=== PATIENT | female | born 1940 | race Two or more races ===

== ENCOUNTER 2017-01-02 10:30 | Emergency (ER) | payer OTHER, MEDICARE ==
[2017-01-02 10:37] VITALS: TEMP 98; BMI 34.9
--- NOTE | 2017-01-02 11:07 | PDOC ---
History of Present Illness - General History Source: Patient - History of Present Illness Presenting Symptoms: Chest Pain Timing/Duration: reports: intermittent <Cayla PollockDeb - Last Filed: 01/02/17 13:31> <Kirill Campuzano - Last Filed: 01/07/17 02:41> - General Chief Complaint: Chest Pain Stated Complaint: CHEST PAIN, LT SIDE NUMBNESS Time Seen by Provider: 01/02/17 10:51 Past History - Past Medical History Anemia: Yes Asthma: Yes Cancer: Yes (LEFT mastectomy) Cardiac Disorders: Yes (mvp) CVA: No COPD: No CHF: No Dementia: No Diabetes: No GI Disorders: Yes (acid reflux) Disorders: Yes HTN: Yes Hypercholesterolemia: Yes Liver Disease: No Seizures: No Thyroid Disease: Yes - Surgical History Abdominal Surgery: No Appendectomy: No Cardiac Surgery: No Cholecystectomy: No Lung Surgery: No Neurologic Surgery: No Orthopedic Surgery: Yes (r fx patella surg times 6, r knee replacement) - Family Disease History Family Disease History: Diabetes: Father, Heart Disease: Mother - Psycho/Social/Smoking Cessation Hx Anxiety: No Suicidal Ideation: No Smoking Status: No Smoking History: Never smoked Have you smoked in the past 12 months: No Number of Cigarettes Smoked Daily: 0 Information on smoking cessation initiated: No Hx Alcohol Use: No Drug/Substance Use Hx: No Substance Use Type: None Hx Substance Use Treatment: No <Cayla PollockDeb - Last Filed: 01/02/17 13:31> <Kirill Campuzano - Last Filed: 01/07/17 02:41> - Past Medical History Allergies/Adverse Reactions: Allergies Allergy/AdvReac Type Severity Reaction Status Date / Time No Known Drug Allergies Allergy Verified 01/02/17 10:37 Home Medications: Ambulatory Orders Alendronate Sodium 70 mg PO UTDICT 10/16/11 Aspirin [Baby Aspirin] 81 mg PO DAILY 10/16/11 Ferrous Fumarate [Iron] 325 mg PO DAILY 10/16/11 Levothyroxine [Synthroid -] 5 mcg PO DAILY 10/16/11 Metoprolol "Xl" (Sustain Act) [Toprol Xl] 50 mg PO DAILY 10/16/11 Hydrochlorothiazide [Hctz -] 12.5 mg PO DAILY 12/31/13 Rosuvastatin [Crestor -] 10 mg PO HS #0 01/06/14 Cyanocobalamin [Vitamin B12 -] 2,500 mcg PO DAILY 06/07/14 Losartan Potassium 50 mg PO DAILY 06/07/14 Pantoprazole Sodium [Protonix] 40 mg PO DAILY 06/07/14 Pramipexole Di-HCl [Mirapex] 0.25 mg PO BID 06/07/14 Oxybutynin Chloride [Ditropan Xl] 10 mg PO DAILY 07/05/16 Warfarin Sodium [Coumadin] 6 mg PO DAILY 01/02/17 Cardiac Specific PMH - Complaint Specific PMHX Pacemaker: No <Griselda Pollock - Last Filed: 01/02/17 13:31> Review of Systems - Review of Systems Constitutional: No: Chills, Fever Respiratory: Yes: Shortness of Breath. No: Cough Cardiac (ROS): Yes: Chest Pain. No: Palpitations ABD/GI: No: Nausea, Vomiting <Griselda Pollock Last Filed: 01/02/17 13:31> *Physical Exam - Physical Exam General Appearance: Yes: Appropriately Dressed. No: Apparent Distress HEENT: positive: Normal Voice Neck: positive: Supple. negative: Lymphadenopathy (R) Respiratory/Chest: positive: Chest Tender (old healed scar to outer quadrant of L breast w/ minimal ttp, no mass, skin changes or adenopathy), Lungs Clear, Normal Breath Sounds. negative: Respiratory Distress Cardiovascular: positive: Regular Rate, S1, S2 Gastrointestinal/Abdominal: positive: Soft. negative: Tender Extremity: positive: Pedal Edema (1 edema to RLE, trace edema to LLE) Integumentary: positive: Dry, Warm Neurologic: positive: Fully Oriented, Alert, Normal Mood/Affect <Griselda Pollock - Last Filed: 01/02/17 13:31> - Vital Signs Last Vital Signs Temp Pulse Resp BP Pulse Ox 98 F 64 17 122/57 95 01/02/17 10:34 01/02/17 14:00 01/02/17 14:00 01/02/17 14:00 01/02/17 14:00 Heart Score/ECG Review - History History: Slightly suspicious - Electrocardiogram EKG: Normal - Age Age: >/= 65 - Risk Factors Risk Factors Heart Score: Yes Hx Hypertension, Yes Hx Obesity Based on the list above the patient has:: 1-2 risk factors - Troponin Troponin: </= normal limit - Score Heart Score - Total: 3 <Griselda Pollock - Last Filed: 01/02/17 13:31> <Kirill Campuzano - Last Filed: 01/07/17 02:41> - ECG Intrepretation Comment:: 01/02/17 11:10 Twelve-lead EKG was performed and reviewed by me. There is normal sinus rhythm with a normal rate. The axis is normal. The intervals are normal. There are no ST or T wave abnormalities. Impression: Normal twelve-lead EKG (Griselda Pollock) ED Treatment Course - LABORATORY CBC & Chemistry Diagram: 01/02/17 11:20 01/02/17 11:20 <Griselda Pollock - Last Filed: 01/02/17 13:31> - LABORATORY CBC & Chemistry Diagram: 01/02/17 11:20 01/02/17 11:20 <Kirill Campuzano - Last Filed: 01/07/17 02:41> - ADDITIONAL ORDERS Additional order review: 01/02/17 11:20 RBC 4.14 MCV 91.7 MCHC 33.6 RDW 14.1 MPV 7.8 Neutrophils % 63.2 Lymphocytes % 27.0 D Monocytes % 7.6 Eosinophils % 1.7 Basophils % 0.5 - Medications Given in the ED: ED Medications Discontinued Medications Generic Name Dose Route Start Last Admin Trade Name Freq PRN Reason Stop Dose Admin Acetaminophen 650 mg 01/02/17 11:29 01/02/17 11:42 Tylenol - PO 01/02/17 11:30 650 mg ONCE ONE Administration Aspirin 325 mg 01/02/17 11:09 01/02/17 11:20 Asa - PO 01/02/17 11:10 325 mg ONCE ONE Administration Medical Decision Making <Griselda Pollock - Last Filed: 01/02/17 13:31> <Kirill Campuzano - Last Filed: 01/07/17 02:41> - Medical Decision Making 01/02/17 11:02 76-year-old female history of MVP, on Coumadin, left breast cancer status post surgery, chemotherapy and radiation several years ago, mammogram last year normal as per patient, HTN, here complaining of chest pain. Patient reports non -radiating, sharp, left-sided chest pain since yesterday, feels like "a knife sticking me" as per pt, 05/18, intermittent, lasting for approximately 5 minutes each time with no exacerbating or alleviating factors. Denies h/o similar pain. Pt states stress/echo normal last month. see exam CP R/o ACS, less likely PE as on coumadin for MVP, no e/o dissection or PNA, possibly stemming from L breast as pain reproducible in outer quandrant of breast, no mass, adenopathy or skin changes -asa -ekg -cxr -labs including BP sae given b/l LE edema -dispo pending 01/02/17 11:08 01/02/17 11:08 01/02/17 13:03 W/u unremarkable. Pt better w/ tylenol and pain free currently. Case d/w Dr Hadley who defers dispo to ED. Rec that I make pt's PMD, Dr Henry, aware of dispo 01/02/17 13:10 INR 6.71. No active bleed. Will recontact cards for recs 01/02/17 13:11 01/02/17 13:24 Case d/w cards and PMD who rec holding off on coumadin until pt can be seen by PMD on Friday for rpt INR. Does not rec reversal w/ vit K at this time. Pt aware and stable for discharge at this time 01/02/17 13:26 01/02/17 13:31 (Griselda Pollock) The patient was seen and evaluated in conjunction with HERB Pollock under my direct supervision, ancillary studies were reviewed. I agree with the plan as outlined by HERB Pollock . (Kirill Campuzano) *DC/Admit/Observation/Transfer <Griselda Pollock - Last Filed: 01/02/17 13:31> <Kriill Campuzano - Last Filed: 01/07/17 02:41> Diagnosis at time of Disposition: Supratherapeutic INR, Atypical chest pain - Discharge Dispostion Disposition: HOME Condition at time of disposition: Improved - Referrals Referrals: Aureliano Henry MD [Primary Care Provider] - - Patient Instructions Printed Discharge Instructions: DI for Atypical Chest Pain Additional Instructions: Your INR was 6.7 today. Please hold off on your Coumadin until you are seen by Dr. Henry on Friday for repeat of your INR. Please continue to follow-up with your turbogenerator operator The cause of your chest pain does not appear to be your heart at this time. Pain is possible muscular in etiology. Take Tylenol as needed and continue to follow-up with your PMD and your turbogenerator operator
[2017-01-02] MEDS ORDERED: ASPIRIN 325 MG TABLET PO ONE (11:09)
[2017-01-02] MEDS ORDERED: ASPIRIN 325 MG TABLET ONE (11:13)
[2017-01-02] MEDS ORDERED: ACETAMINOPHEN 325 MG TABLET (FP) PO ONE (11:29)
[2017-01-02 11:34] LABS: BASOPHIL 0.5 % (0-2.0); EOSINOPHIL 1.7 % (0-4.5); MCH 30.8 pg (25.7-33.7); MCHC 33.6 g/dl (32.0-36.0); MEAN CELL VOLUME 91.7 fl (80-96); MEAN PLT VOLUME 7.8 fl (7.5-11.1); NEUTROPHILS 63.2 % (42.8-82.8); PLATELET COUNT 170 K/MM3 (134-434); RDW 14.1 % (11.6-15.6); WHITE BLOOD COUNT 6.3 K/mm3 (4.0-10.0)
[2017-01-02] MEDS ORDERED: ACETAMINOPHEN 325 MG TABLET (FP) ONE (11:40)
[2017-01-02 12:03] LABS: ALBUMIN 3.5 g/dl (3.4-5.0); ANION GAP 9 (8-16); BILIRUBIN,TOTAL 0.5 mg/dL (0.2-1.0); CALCIUM 8.4 mg/dL (8.5-10.1); CO2 30 mmol/L (21-32); CREATININE 0.6 mg/dL (0.55-1.02); GLUCOSE,RANDOM 94 mg/dL (74-106); SGOT/AST 20 U/L (15-37); SGPT/ALT 23 U/L (12-78); TOT PROT 6.7 g/dl (6.4-8.2)
[2017-01-02 12:05] LABS: ALK PHOS 51 U/L (45-117); TROPONIN I < 0.02 ng/ml (0.00-0.05)
[2017-01-02 12:32] LABS: URINE APPEARANCE CLEAR; URINE BILIRUBIN NEGATIVE (NEGATIVE); URINE COLOR STRAW; URINE GLUCOSE (UA) NEGATIVE (NEGATIVE); URINE KETONE NEGATIVE (NEGATIVE); URINE NITRITE NEGATIVE (NEGATIVE); URINE PROTEIN NEGATIVE (NEGATIVE); URINE UROBILINOGEN NEGATIVE E.U./dl (0.2-1.0)
[2017-01-02 12:36] LABS: URINE BLOOD 1+ (NEGATIVE); URINE LEUK ESTERASE TRACE (NEGATIVE)
[2017-01-02 12:38] LABS: PROTHROMBIN TIME (PATIENT) 76.7 SEC (9.98-11.88)
--- NOTE | 2017-01-02 12:55 | EKG ---
Test Reason : Blood Pressure : / mmHG Vent. Rate : 075 BPM Atrial Rate : 075 BPM P-R Int : 204 ms QRS Dur : 096 ms QT Int : 418 ms P-R-T Axes : 018 -08 018 degrees QTc Int : 466 ms POOR DATA QUALITY, INTERPRETATION MAY BE ADVERSELY AFFECTED NORMAL SINUS RHYTHM NORMAL ECG WHEN COMPARED WITH ECG OF 01-FEB-2015 08:58, NO SIGNIFICANT CHANGE WAS FOUND Confirmed by DAVID APODACA MD ([id number]) on 01/02/2017 12:55:20 PM Referred By: Confirmed By:DAVID APODACA MD
[2017-01-02 13:07] LABS: URINE MUCUS RARE; URINE RBC 3 /hpf (0-3); URINE WBC 15 /hpf (3-5)
[2017-01-02 13:08] LABS: INR 6.71 (0.82-1.09)
[2017-01-02 14:09] VITALS: BP 122/57; PULSE 64
== END 2017-01-02 14:09 | disposition home or self-care (01) ==
LOC: JER 10:30
DX: R07.89 Other chest pain (principal); D68.8 Other specified coagulation defects; I10 Essential (primary) hypertension; K21.9 Gastro-esophageal reflux disease without esophagitis; J45.909 Unspecified asthma, uncomplicated; E78.00 Pure hypercholesterolemia, unspecified; E03.9 Hypothyroidism, unspecified; I34.1 Nonrheumatic mitral (valve) prolapse; Z79.01 Long term (current) use of anticoagulants
CPT/HCPCS: 36415; 71010-TC; 80053; 81003; 81015; 82550; 83880; 84484; 85025; 85610; 93005; 93010; 99284-25

== ENCOUNTER 2017-01-20 08:43 | Emergency (ER) | payer OTHER, MEDICARE ==
[2017-01-20 08:49] VITALS: TEMP 98.4; BMI 32.5
--- NOTE | 2017-01-20 10:07 | PDOC ---
History of Present Illness <Rimma Corrales - Last Filed: 01/20/17 15:37> - History of Present Illness Initial Comments: 01/20/17 10:11 Patient is a 77 year old female with significant medical hx of breast CA s/p left mastectomy, mitral valve prolapse, HLD, HTN, hypothyroidism, asthma, and anemia who is presenting to the ED with right sided headache for over a week. Approximately nine days ago the patient hit her head on a door and has since experienced headache to the right side. The patient also complains of tingling and weakness to her right upper extremity and endorses some neck pain. Patient has taken tylenol since the onset of her symptoms with no relief. The patient spoke with her PMD who referred her to the ED. Denies any nausea, vomiting, blurry vision, dizziness, lightheadedness or loss of consciousness. Patient notes that she was on coumadin for mitral valve prolapse until taken off two weeks ago. <Freida Kim - Last Filed: 01/20/17 16:59> - General Chief Complaint: Headache Stated Complaint: HEADACHES/HEAD CONTUSION ON PLAVIX Past History - Past Medical History Anemia: Yes Asthma: Yes Cancer: Yes (LEFT mastectomy) Cardiac Disorders: Yes (mvp) CVA: No COPD: No CHF: No Dementia: No Diabetes: No GI Disorders: Yes (acid reflux) Disorders: Yes HTN: Yes Hypercholesterolemia: Yes Liver Disease: No Seizures: No Thyroid Disease: Yes - Surgical History Abdominal Surgery: No Appendectomy: No Cardiac Surgery: No Cholecystectomy: No Lung Surgery: No Neurologic Surgery: No Orthopedic Surgery: Yes (r fx patella surg times 6, r knee replacement) - Family Disease History Family Disease History: Diabetes: Father, Heart Disease: Mother - Psycho/Social/Smoking Cessation Hx Anxiety: No Suicidal Ideation: No Smoking Status: No Smoking History: Never smoked Have you smoked in the past 12 months: No Number of Cigarettes Smoked Daily: 0 Information on smoking cessation initiated: No Hx Alcohol Use: No Drug/Substance Use Hx: No Substance Use Type: None Hx Substance Use Treatment: No <Rimma Corrales - Last Filed: 01/20/17 15:37> <Freida Kim - Last Filed: 01/20/17 16:59> - Past Medical History Allergies/Adverse Reactions: Allergies Allergy/AdvReac Type Severity Reaction Status Date / Time No Known Drug Allergies Allergy Verified 01/20/17 08:49 Home Medications: Ambulatory Orders Alendronate Sodium 70 mg PO UTDICT 10/16/11 Aspirin [Baby Aspirin] 81 mg PO DAILY 10/16/11 Ferrous Fumarate [Iron] 325 mg PO DAILY 10/16/11 Levothyroxine [Synthroid -] 5 mcg PO DAILY 10/16/11 Metoprolol "Xl" (Sustain Act) [Toprol Xl] 50 mg PO DAILY 10/16/11 Hydrochlorothiazide [Hctz -] 12.5 mg PO DAILY 12/31/13 Rosuvastatin [Crestor -] 10 mg PO HS #0 01/06/14 Cyanocobalamin [Vitamin B12 -] 2,500 mcg PO DAILY 06/07/14 Losartan Potassium 50 mg PO DAILY 06/07/14 Pantoprazole Sodium [Protonix] 40 mg PO DAILY 06/07/14 Pramipexole Di-HCl [Mirapex] 0.25 mg PO BID 06/07/14 Oxybutynin Chloride [Ditropan Xl] 10 mg PO DAILY 07/05/16 Review of Systems - Review of Systems Comments:: 01/20/17 10:12 CONSTITUTIONAL: Absent: fever, chills, diaphoresis, generalized weakness, malaise, loss of appetite HEENT: Absent: rhinorrhea, nasal congestion, throat pain, throat swelling, difficulty swallowing, mouth swelling, ear pain, eye pain, visual changes CARDIOVASCULAR: Absent: chest pain, syncope, palpitations, irregular heart rate, lightheadedness , peripheral edema RESPIRATORY: Absent: cough, shortness of breath, dyspnea with exertion, orthopnea, wheezing, stridor, hemoptysis GASTROINTESTINAL: Absent: abdominal pain, abdominal distension, nausea, vomiting, diarrhea, constipation, melena, hematochezia GENITOURINARY: Absent: dysuria, frequency, urgency, hesitancy, hematuria, flank pain, genital pain MUSCULOSKELETAL: Present: neck pain Absent: myalgia, arthralgia, joint swelling SKIN: Absent: rash, itching, pallor HEMATOLOGIC/IMMUNOLOGIC: Absent: easy bleeding, easy bruising, lymphadenopathy, frequent infections ENDOCRINE: Absent: unexplained weight gain, unexplained weight loss, heat intolerance, cold intolerance NEUROLOGIC: Present: headache, right upper extremity weakness Absent: paresthesia, dizziness, unsteady gait, seizure, mental status changes, bladder or bowel incontinence. PSYCHIATRIC: Absent: anxiety, depression, suicidal or homicidal ideation, hallucinations <Freida Kim - Last Filed: 01/20/17 16:59> *Physical Exam - Vital Signs Last Vital Signs Temp Pulse Resp BP Pulse Ox 98.4 F 65 17 149/80 97 01/20/17 08:47 01/20/17 08:47 01/20/17 08:47 01/20/17 08:47 01/20/17 08:47 <Monster Corralesa - Last Filed: 01/20/17 15:37> - Vital Signs Last Vital Signs Temp Pulse Resp BP Pulse Ox 98.4 F 65 17 149/80 97 01/20/17 08:47 01/20/17 08:47 01/20/17 08:47 01/20/17 08:47 01/20/17 08:47 - Physical Exam Comments: 01/20/17 10:17 GENERAL: Well developed, well nourished. Awake and alert. No acute distress. HEENT: Normocephalic, atraumatic. PERRLA, EOMI. No conjunctival pallor. Sclera are non- icteric. Moist mucous membranes. Oropharynx is clear. NECK: Supple. Full ROM. No JVD. Carotid pulses 2+ and symmetric, without bruits. No thyromegaly. No lymphadenopathy. CARDIOVASCULAR: Regular rate and rhythm. No murmurs, rubs, or gallops. Distal pulses are 2+ and symmetric. PULMONARY: No evidence of respiratory distress. Lungs clear to auscultation bilaterally. No wheezing, rales or rhonchi. ABDOMINAL: Soft. Non-tender. Non-distended. No rebound or guarding. No organomegaly. Normoactive bowel sounds. MUSCULOSKELETAL: Trapezial tenderness to the right side. Normal range of motion at all joints. No bony deformities. No CVA tenderness. EXTREMITIES: No cyanosis. No clubbing. No edema. No calf tenderness. SKIN: Warm and dry. Normal capillary refill. No rashes. No jaundice. NEUROLOGICAL: Alert, awake, appropriate. Cranial nerves 2-12 intact. Motor strength 4+/5 to the right upper and lower extremity, decreased sensation to light touch to the right upper extremity. Normal speech. Gait is normal without ataxia. PSYCHIATRIC: Cooperative. Good eye contact. Appropriate mood and affect. <JudyJossueFreida - Last Filed: 01/20/17 16:59> Heart Score/ECG Review #1 01/20/17 11:17 Sinus rhythm at 61 bpm with frequent premature ventricular complexes Otherwise normal ECG <JudyFreida byrnes - Last Filed: 01/20/17 16:59> ED Treatment Course - LABORATORY CBC & Chemistry Diagram: 01/20/17 10:35 01/20/17 10:35 <Rimma Corrales - Last Filed: 01/20/17 15:37> - LABORATORY CBC & Chemistry Diagram: 01/20/17 10:35 01/20/17 10:35 - RADIOLOGY Radiograph Interpretation: 01/20/17 16:54 Brain MRI Impression: No acute infarct is seen on the diffusion-weighted images. Reported By: Mehran Pimentel MD 01/20/17 16:[address] Impression: No evidence of acute fracture, compression deformities, subluxation , prevertebral soft tissue swelling. Dextroscoliosis of cervical spine. Multilevel chronic degenerative discogenic disease. Reported By: Mehran Pimentel MD Head CT Impression: No significant interval change. Mild volume loss. No gross evidence of a focal intracranial lesion or hemorrhage is seen. Reported By: Keli Enamorado MD <Judy,Freida - Last Filed: 01/20/17 16:59> Medical Decision Making - Medical Decision Making 01/20/17 10:03 77 yo F with h/o MVP, anemia HTN breast cancer ( s/p mastectomy) here wtih c/o right sided headache. pt states hit head 10 days ago, has had headache ever since. also notes right sided weakness and numnbess. no n/v no change to speech or vision. no prior CVA. no other complaints. was on coumadin for MVP until 2 weeks ago, was switched to plavix. on exam pt facies symmetric, mild right trapezial tenderness right side, head atraumatic. nuero exam wtih CN intact, and mild right upper and lower ext weakness. MDM: differential mass, ich, cva, electrolyte abnormality, plan ct head and neck. labs coags. ekg. 01/20/17 15:36 pt with normal BRain MRI, will dc to followup with dr. RoscShaista. <Rimma Corrales - Last Filed: 01/20/17 15:37> *DC/Admit/Observation/Transfer - Discharge Dispostion Admit: No <Rimma Corrales - Last Filed: 01/20/17 15:37> - Attestations Scribe Attestion: 01/20/17 10:19 Documentation prepared by Freida Kim, acting as medical office assistant for Rimma Corrales MD. <Freida Kim - Last Filed: 01/20/17 16:59> Diagnosis at time of Disposition: Headache - Discharge Dispostion Disposition: HOME - Referrals Referrals: Aureliano Henry MD [Primary Care Provider] - Aron Olvera MD [Staff Physician] - - Patient Instructions Printed Discharge Instructions: Postconcussion Syndrome Additional Instructions: follow up with dr. Olvera for persistant headaches. you can take ibuprofen 400 mg every 8 hrs as needed for pain. return for any sudden weakness numbness or tingling. follow up with DR. Henry, call to schedule.
[2017-01-20] MEDS ORDERED: ACETAMINOPHEN 325 MG TABLET (FP) PO ONE (10:40)
[2017-01-20] MEDS ORDERED: ACETAMINOPHEN 325 MG TABLET (FP) ONE (10:53)
[2017-01-20 11:04] LABS: EOSINOPHIL 0.7 % (0-4.5); MCH 30.6 pg (25.7-33.7); MCHC 32.8 g/dl (32.0-36.0); MEAN CELL VOLUME 93.3 fl (80-96); MEAN PLT VOLUME 8.5 fl (7.5-11.1); NEUTROPHILS 68.2 % (42.8-82.8); PLATELET COUNT 173 K/MM3 (134-434); RDW 14.1 % (11.6-15.6)
[2017-01-20 11:05] LABS: BASOPHIL 0.3 % (0-2.0)
[2017-01-20 11:10] LABS: ALBUMIN 3.8 g/dl (3.4-5.0); ALK PHOS 46 U/L (45-117); ANION GAP 5 (8-16); BILIRUBIN,TOTAL 0.6 mg/dL (0.2-1.0); CALCIUM 9.5 mg/dL (8.5-10.1); CO2 33 mmol/L (21-32); COCKROFT - GAULT 79.135; CREATININE 0.7 mg/dL (0.55-1.02); GLUCOSE,RANDOM 94 mg/dL (74-106); SGOT/AST 14 U/L (15-37); SGPT/ALT 25 U/L (12-78)
[2017-01-20 11:39] LABS: INR 1.31 (0.82-1.09); PROTHROMBIN TIME (PATIENT) 14.5 SEC (9.98-11.88)
[2017-01-20] MEDS ORDERED: ACETAMINOPHEN/CAFFEINE/BUTALBITAL 1 TAB PO PRN (12:35)
--- NOTE | 2017-01-20 12:35 | CONSULT ---
Consult - text type - Consultation Consultation Note: Neurology History of Present Illness 77 year old female with significant medical hx of breast CA s/p left mastectomy , mitral valve prolapse reportedly on AC (coumadin until two weeks ago then Eliquis), HLD, HTN, hypothyroidism, asthma, and anemia who is presenting to the ED with right sided headache for over a week. Approximately nine days ago the patient hit her head on a door and has since experienced headache to the right side. The patient also complains of tingling and weakness to her right upper extremity and endorses some neck pain. The patient spoke with her PMD who referred her to the ED. CT head completed and without acute changes however patient does demonstrate 5-/5 RUE weakness and diminished sensation on LT of R side on exam and spoke with ER physician in detail. Discussed having MRI brain to rule out infarct and given prior breast cancer history, possible mets. CT C spine completed and without acute changes. May be underlying cervicalgia/C. Radic. Past History - Past Medical History Anemia: Yes Asthma: Yes Cancer: Yes (LEFT mastectomy) Cardiac Disorders: Yes (mvp) CVA: No COPD: No CHF: No Dementia: No Diabetes: No GI Disorders: Yes (acid reflux) Disorders: Yes HTN: Yes Hypercholesterolemia: Yes Liver Disease: No Seizures: No Thyroid Disease: Yes - Surgical History Abdominal Surgery: No Appendectomy: No Cardiac Surgery: No Cholecystectomy: No Lung Surgery: No Neurologic Surgery: No Orthopedic Surgery: Yes (r fx patella surg times 6, r knee replacement) - Family Disease History Family Disease History: Diabetes: Father, Heart Disease: Mother - Psycho/Social/Smoking Cessation Hx Anxiety: No Suicidal Ideation: No Smoking Status: No Smoking History: Never smoked Have you smoked in the past 12 months: No Number of Cigarettes Smoked Daily: 0 Information on smoking cessation initiated: No Hx Alcohol Use: No Drug/Substance Use Hx: No Substance Use Type: None Hx Substance Use Treatment: No - Past Medical History Allergies/Adverse Reactions: Allergies Allergy/AdvReac Type Severity Reaction Status Date / Time No Known Drug Allergies Allergy Verified 01/20/17 08:49 Home Medications: Ambulatory Orders Alendronate Sodium 70 mg PO UTDICT 10/16/11 Aspirin [Baby Aspirin] 81 mg PO DAILY 10/16/11 Ferrous Fumarate [Iron] 325 mg PO DAILY 10/16/11 Levothyroxine [Synthroid -] 5 mcg PO DAILY 10/16/11 Metoprolol "Xl" (Sustain Act) [Toprol Xl] 50 mg PO DAILY 10/16/11 Hydrochlorothiazide [Hctz -] 12.5 mg PO DAILY 12/31/13 Rosuvastatin [Crestor -] 10 mg PO HS #0 01/06/14 Cyanocobalamin [Vitamin B12 -] 2,500 mcg PO DAILY 06/07/14 Losartan Potassium 50 mg PO DAILY 06/07/14 Pantoprazole Sodium [Protonix] 40 mg PO DAILY 06/07/14 Pramipexole Di-HCl [Mirapex] 0.25 mg PO BID 06/07/14 Oxybutynin Chloride [Ditropan Xl] 10 mg PO DAILY 07/05/16 Review of Systems CONSTITUTIONAL: Absent: fever, chills, diaphoresis, generalized weakness, malaise, loss of appetite HEENT: Absent: rhinorrhea, nasal congestion, throat pain, throat swelling, difficulty swallowing, mouth swelling, ear pain, eye pain, visual changes CARDIOVASCULAR: Absent: chest pain, syncope, palpitations, irregular heart rate, lightheadedness , peripheral edema RESPIRATORY: Absent: cough, shortness of breath, dyspnea with exertion, orthopnea, wheezing, stridor, hemoptysis GASTROINTESTINAL: Absent: abdominal pain, abdominal distension, nausea, vomiting, diarrhea, constipation, melena, hematochezia GENITOURINARY: Absent: dysuria, frequency, urgency, hesitancy, hematuria, flank pain, genital pain MUSCULOSKELETAL: Present: neck pain Absent: myalgia, arthralgia, joint swelling SKIN: Absent: rash, itching, pallor HEMATOLOGIC/IMMUNOLOGIC: Absent: easy bleeding, easy bruising, lymphadenopathy, frequent infections ENDOCRINE: Absent: unexplained weight gain, unexplained weight loss, heat intolerance, cold intolerance NEUROLOGIC: Present: headache, right upper extremity weakness Absent: paresthesia, dizziness, unsteady gait, seizure, mental status changes, bladder or bowel incontinence. PSYCHIATRIC: Absent: anxiety, depression, suicidal or homicidal ideation, hallucinations *Physical Exam Last Vital Signs Temp Pulse Resp BP Pulse Ox 98.4 F 65 17 149/80 97 01/20/17 08:47 01/20/17 08:47 01/20/17 08:47 01/20/17 08:47 01/20/17 08:47 GENERAL: Well developed, well nourished. Awake and alert. No acute distress. HEENT: Normocephalic, atraumatic. PERRLA, EOMI. No conjunctival pallor. Sclera are non- icteric. Moist mucous membranes. Oropharynx is clear. NECK: Supple. Full ROM. No JVD. Carotid pulses 2+ and symmetric, without bruits. No thyromegaly. No lymphadenopathy. CARDIOVASCULAR: Regular rate and rhythm. No murmurs, rubs, or gallops. Distal pulses are 2+ and symmetric. PULMONARY: No evidence of respiratory distress. Lungs clear to auscultation bilaterally. No wheezing, rales or rhonchi. ABDOMINAL: Soft. Non-tender. Non-distended. No rebound or guarding. No organomegaly. Normoactive bowel sounds. MUSCULOSKELETAL: Trapezial tenderness to the right side. Normal range of motion at all joints. No bony deformities. No CVA tenderness. EXTREMITIES: No cyanosis. No clubbing. No edema. No calf tenderness. SKIN: Warm and dry. Normal capillary refill. No rashes. No jaundice. NEUROLOGICAL: Alert, awake, appropriate. Cranial nerves 2-12 intact. Motor strength 4+/5 to the right upper and lower extremity, decreased sensation to light touch to the right upper extremity. Normal speech. 5-/5 in RUE in strength. PSYCHIATRIC: Cooperative. Good eye contact. Appropriate mood and affect. CBCD WBC 9.0 K/mm3 (4.0-10.0) D 01/20/17 10:35 RBC 4.64 M/mm3 (3.60-5.2) 01/20/17 10:35 Hgb 14.2 GM/dL (10.7-15.3) D 01/20/17 10:35 Hct 43.3 % (32.4-45.2) 01/20/17 10:35 MCV 93.3 fl (80-96) 01/20/17 10:35 MCHC 32.8 g/dl (32.0-36.0) 01/20/17 10:35 RDW 14.1 % (11.6-15.6) 01/20/17 10:35 Plt Count 173 K/MM3 (134-434) 01/20/17 10:35 MPV 8.5 fl (7.5-11.1) 01/20/17 10:35 CMP Sodium 140 mmol/L (136-145) 01/20/17 10:35 Potassium 4.2 mmol/L (3.5-5.1) D 01/20/17 10:35 Chloride 102 mmol/L (98-107) 01/20/17 10:35 Carbon Dioxide 33 mmol/L (21-32) H 01/20/17 10:35 Anion Gap 5 (8-16) L 01/20/17 10:35 BUN 17 mg/dL (7-18) 01/20/17 10:35 Creatinine 0.7 mg/dL (0.55-1.02) 01/20/17 10:35 Creat Clearance w eGFR > 60 (>60) 01/20/17 10:35 Calcium 9.5 mg/dL (8.5-10.1) 01/20/17 10:35 Total Bilirubin 0.6 mg/dL (0.2-1.0) 01/20/17 10:35 AST 14 U/L (15-37) L D 01/20/17 10:35 ALT 25 U/L (12-78) 01/20/17 10:35 Alkaline Phosphatase 46 U/L (45-117) 01/20/17 10:35 Total Protein 7.0 g/dl (6.4-8.2) 01/20/17 10:35 Albumin 3.8 g/dl (3.4-5.0) 01/20/17 10:35 Medical Decision Making 77 year old female with significant medical hx of breast CA s/p left mastectomy , mitral valve prolapse reportedly on AC (coumadin until two weeks ago then Eliquis), HLD, HTN, hypothyroidism, asthma, and anemia who is presenting to the ED with right sided headache for over a week. Approximately nine days ago the patient hit her head on a door and has since experienced headache to the right side. The patient also complains of tingling and weakness to her right upper extremity and endorses some neck pain. The patient spoke with her PMD who referred her to the ED. CT head completed and without acute changes however patient does demonstrate 5-/5 RUE weakness and diminished LT sensation on RUE MRI brain to rule out infarct and given prior breast cancer history, rule out small met. CT C spine completed and without acute changes. May be underlying cervicalgia/ C. Radic. Trial of Fioricet for headache Consider PT for neck May benefit from muscle relaxant, baclofen, will defer to PCP on initiating this Avoid subsequent trauma to C spine/shoulder
--- NOTE | 2017-01-20 13:00 | EKG ---
Test Reason : Blood Pressure : / mmHG Vent. Rate : 061 BPM Atrial Rate : 061 BPM P-R Int : 194 ms QRS Dur : 090 ms QT Int : 450 ms P-R-T Axes : 013 -04 022 degrees QTc Int : 453 ms SINUS RHYTHM WITH FREQUENT PREMATURE VENTRICULAR COMPLEXES OTHERWISE NORMAL ECG WHEN COMPARED WITH ECG OF 02-JAN-2017 10:39, PREMATURE VENTRICULAR COMPLEXES ARE NOW PRESENT Confirmed by TORRIE GRULLON MD ([id number]) on 01/20/2017 1:00:01 PM Referred By: Confirmed By:TORRIE GRULLON MD
[2017-01-20 16:58] VITALS: BP 139/78; PULSE 69
== END 2017-01-20 16:58 | disposition home or self-care (01) ==
LOC: JER 08:43
DX: R51 Headache (principal); I10 Essential (primary) hypertension; E78.5 Hyperlipidemia, unspecified; E03.9 Hypothyroidism, unspecified; J45.909 Unspecified asthma, uncomplicated; K21.9 Gastro-esophageal reflux disease without esophagitis; I34.1 Nonrheumatic mitral (valve) prolapse; Z85.3 Personal history of malignant neoplasm of breast; Z90.12 Acquired absence of left breast and nipple; W19.XXXA Unspecified fall, initial encounter; Y93.89 Activity, other specified; Y92.89 Other specified places as the place of occurrence of the external cause
CPT/HCPCS: 36415; 70450-TC; 70551-TC; 72125-TC; 80053; 85025; 85610; 93005; 93010; 99282-25

== ENCOUNTER 2017-11-19 07:00 | Inpatient (IN) | payer OTHER ==
[2017-11-18 12:56] VITALS: BMI 35.2
--- NOTE | 2017-11-19 08:16 | HP ---
[facility] - Chief Complaint Chief Complaint: right shoulder pain History of Present Illness: right shoulder impingement History Source: Patient Limitations to Obtaining History: No Limitations - Past Medical History Allergies/Adverse Reactions: Allergies Allergy/AdvReac Type Severity Reaction Status Date / Time No Known Drug Allergies Allergy Verified 11/18/17 12:56 - Current Medications Current Medications: Home Medications Medication Instructions Recorded Alendronate Sodium 70 mg PO UTDICT 10/16/11 Ferrous Fumarate [Iron] 325 mg PO DAILY 10/16/11 Levothyroxine [Synthroid -] 50 mcg PO DAILY 10/16/11 Metoprolol "Xl" (Sustain Act) 50 mg PO DAILY 10/16/11 [Toprol Xl] Hydrochlorothiazide [Hctz -] 12.5 mg PO DAILY 12/31/13 Rosuvastatin [Crestor -] 10 mg PO HS #0 01/06/14 Cyanocobalamin [Vitamin B12 -] 2,500 mcg PO DAILY 06/07/14 Losartan Potassium 50 mg PO DAILY 06/07/14 Pantoprazole Sodium [Protonix] 40 mg PO DAILY 06/07/14 Pramipexole Di-HCl [Mirapex] 0.25 mg PO BID 06/07/14 Oxybutynin Chloride [Ditropan Xl] 10 mg PO DAILY 07/05/16 Albuterol Sulfate [Proventil HFA 1 - 2 inh PO QID PRN 11/18/17 Inhaler -] Apixaban [Eliquis] 5 mg PO BID 11/18/17 Ascorbate Calcium [Vitamin C] 500 mg PO DAILY 11/18/17 Budesonide/Formeterol Fumarate 1 inh PO DAILY 11/18/17 [SYMBICORT 80/4.5mcg -] Hydroxyzine HCl 10 mg PO DAILY 11/18/17 Meloxicam [Mobic] 7.5 mg PO BID 11/18/17 Pregabalin [Lyrica] 100 mg PO BID 11/18/17 Solifenacin Succinate [Vesicare -] 10 mg PO DAILY 11/18/17 [facility] Physical Exam - Physical Examination Vital Signs: Vital Signs Period Temp Pulse Resp BP Sys/Bocanegra Pulse Ox Last 24 Hr 98.3 F-98.3 F 65-65 18-18 147-147/90-90 96 General Appearance: Well Nourished ENT: Clear Lung: Clear to auscultation Heart: Regular rate & rhythm Breasts: Soft Abdomen: Soft Extremities: No edema Satellite Impression/Plan - Impression/Plan Impression: right shoulder impingement Operative Procedure: right shoulder arthroscopy, decompression Date to be Performed: 11/19/17
[2017-11-19] MEDS ORDERED: PROPOFOL 20 ML ONE (09:09)
[2017-11-19] MEDS ORDERED: LIDOCAINE HCL 2% 100 MG/5 ML DISP.SYRIN ONE (09:09)
[2017-11-19] MEDS ORDERED: DEXAMETHASONE SOD PHOSPHATE 4 MG/1 ML VIAL ONE (09:09)
[2017-11-19] MEDS ORDERED: DEXAMETHASONE SOD PHOSPHATE/PF 10 MG/ML SDV ONE (09:17)
[2017-11-19] MEDS ORDERED: BUPIVACAINE HCL/PF 0.5% (5MG/ML) 10 ML VIAL ONE (09:17)
[2017-11-19] MEDS ORDERED: MIDAZOLAM HCL 2 MG/2 ML SINGLE DOSE VIAL ONE ×2 (09:18)
[2017-11-19] MEDS ORDERED: ceFAZolin SODIUM 1 GM VIAL IVPB ONE (10:58)
--- NOTE | 2017-11-19 11:55 | OP ---
Operative Note - Note: Operative Date: 11/19/17 Pre-Operative Diagnosis: right shoulder impingement Operation: right shoulder arthroscopy, decompression Post-Operative Diagnosis: Same as Pre-op Surgeon: Micheal Rucker Anesthesiologist/CLOCK AND WATCH HANDS DIPPER: Rufino Bullock Anesthesia: General, Local Specimens Removed: shavings Estimated Blood Loss (mls): 25 Drains, Volume Out (mls): 0 Blood Volume Replaced (mls): 0 Fluid Volume Replaced (mls): 500 Operative Report Dictated: Yes
[2017-11-19] MEDS ORDERED: oxyCODONE HCL 5 MG TABLET PO PRN (12:46)
[2017-11-19] MEDS ORDERED: ONDANSETRON 4 MG/2 ML VIAL IVPUSH PRN (12:46)
[2017-11-19] MEDS ORDERED: ALBUTEROL SO4 0.083% IH SOL 2.5 MG/3 ML VIAL.NEB. NEB ONE (12:53)
[2017-11-19] MEDS ORDERED: LACTATED RINGERS SOLUTION 1,000 ML IV SCH (13:00)
--- NOTE | 2017-11-19 14:47 | OP ---
DATE OF OPERATION: 11/19/2017 PREOPERATIVE DIAGNOSIS: Right shoulder subacromial impingement. POSTOPERATIVE DIAGNOSIS: Right shoulder subacromial impingement. PROCEDURE: Right shoulder arthroscopy, subacromial decompression. SURGEON: Micheal Hawk MD ASSISTANTS: None. ANESTHESIA: Jeronimo Zacarias MD, right interscalene block and LM anesthesia. DRAINS: None. COMPLICATIONS: None. SPECIMEN: Arthroscopic shavings. BLOOD LOSS: Minimal. BLOOD GIVEN: None. FLUID REPLACEMENT: 500 mL. This patient is a 77-year-old female with a preoperative diagnosis of a right shoulder impingement syndrome and possible rotator cuff repair. After understanding the potential risks, complications, alternatives, and benefits to surgical versus nonsurgical treatment, the patient elected to undergo this procedure. The patient was brought to the operating room, peripheral IV placed, IV sedation given, right interscalene block was performed, 2 g of IV Ancef was given. LM anesthesia was induced. She was placed into the beach chair position with ample padding throughout. The right upper extremity was prepped and draped in sterile fashion. The bony landmarks were marked out with a marking pin. Posterior portal was established and diagnostic glenohumeral arthroscopy was performed. The patient was seen to have significant pathology within the glenohumeral joint. 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 Much of it was exposed bone. The patient had undersurface fraying of the rotator cuff. The biceps tendon was frayed. There was a lot of degeneration of the glenoid and the labrum. The area was copiously irrigated and washed out. Our attention then turned to the subacromial space. The patient had a tremendous amount of inflammatory bursitis. A lateral portal was established under direct visualization using spinal needle, and a soft tissue bursectomy was performed with an ArthroCare wand. After the extensive debridement/soft-tissue bursectomy, I was able to directly visualize the top surface of the rotator cuff, and there was no complete portion of the tear on the top surface. The rotator cuff moved as a unit with the humeral head. The patient had a moderate size subacromial bony spur. This was taken down with a 5.5-mm oval bur, then fine-tuned in reverse. The shaver was introduced to remove all debris and fine-tune the decompression. Photographs were taken after. There was plenty of room. On direct visualization, there was no more impingement. The top surface of the rotator cuff was then directly visualized again, and again no complete rotator cuff tear was seen through extreme internal and external rotation and throughout range of motion. Therefore, the area was copiously irrigated and washed out. All instrumentation was removed. The arthroscopy portals were closed with 3-0 nylon sutures. The area was then washed and dried, covered with Aquacel. She was placed into a sling, taken down out of the beach chair position, extubated, and brought to the ambulatory recovery room in stable condition. MICHEAL HAWK M.D. [id number]
[2017-11-19] MEDS ORDERED: ALBUTEROL SO4 0.083% IH SOL 2.5 MG/3 ML VIAL.NEB. NEB PRN (18:04)
--- NOTE | 2017-11-19 18:14 | HP ---
CHIEF COMPLAINT:hypoxia PCP:[facility] HISTORY OF PRESENT ILLNESS: 77yo F wtih PMH breast ca s/p chemo/RTx, asthma, afib, CHF, CAD and HTN came for scheduled R shoulder arthoscopy. after the procedure pt was noted to be hypoxic to 88% on RA. pt received nerve block and general MAC anesthesia. pt felt normal state of health for the past few days leading up to the surgery. on further questioning pt admits to using rescue inhaler at minimum 4x/day and at least once a week in the middle of the night. has never been on a long acting inhaler. denies Cp, SOB, fever, chills, cough, recent URI like symptoms, medication changes or recent abx use. Recent Travel:none PAST MEDICAL HISTORY:as above PAST SURGICAL HISTORY: B/L THR, TKR, ? bladder pessary Social History: Smoking:denies Alcohol:denies Drugs: denies Family History:not contributory Allergies No Known Drug Allergies Allergy (Verified 11/18/17 12:56) HOME MEDICATIONS: Home Medications Medication Instructions Recorded Alendronate Sodium 70 mg PO UTDICT 10/16/11 Ferrous Fumarate [Iron] 325 mg PO DAILY 10/16/11 Levothyroxine [Synthroid -] 50 mcg PO DAILY 10/16/11 Metoprolol "Xl" (Sustain Act) 50 mg PO DAILY 10/16/11 [Toprol Xl] Hydrochlorothiazide [Hctz -] 12.5 mg PO DAILY 12/31/13 Rosuvastatin [Crestor -] 10 mg PO HS #0 01/06/14 Cyanocobalamin [Vitamin B12 -] 2,500 mcg PO DAILY 06/07/14 Losartan Potassium 50 mg PO DAILY 06/07/14 Pantoprazole Sodium [Protonix] 40 mg PO DAILY 06/07/14 Pramipexole Di-HCl [Mirapex] 0.25 mg PO BID 06/07/14 Oxybutynin Chloride [Ditropan Xl] 10 mg PO DAILY 07/05/16 Albuterol Sulfate [Proventil HFA 1 - 2 inh PO QID PRN 11/18/17 Inhaler -] Apixaban [Eliquis] 5 mg PO BID 11/18/17 Ascorbate Calcium [Vitamin C] 500 mg PO DAILY 11/18/17 Budesonide/Formeterol Fumarate 1 inh PO DAILY 11/18/17 [SYMBICORT 80/4.5mcg -] Hydroxyzine HCl 10 mg PO DAILY 11/18/17 Meloxicam [Mobic] 7.5 mg PO BID 11/18/17 Pregabalin [Lyrica] 100 mg PO BID 11/18/17 Solifenacin Succinate [Vesicare -] 10 mg PO DAILY 11/18/17 Hydrocodone/Acetaminophen [Cunningham 1 each PO Q6H PRN #40 tablet MDD 4 11/19/17 5-325 Tablet] REVIEW OF SYSTEMS CONSTITUTIONAL: Absent: fever, chills, diaphoresis, generalized weakness, malaise, loss of appetite, weight change HEENT: Absent: rhinorrhea, nasal congestion, throat pain, throat swelling, difficulty swallowing, mouth swelling, ear pain, eye pain, visual changes CARDIOVASCULAR: Absent: chest pain, syncope, palpitations, irregular heart rate, lightheadedness , peripheral edema RESPIRATORY: dyspnea Absent: cough, shortness of breath, orthopnea, wheezing, stridor, hemoptysis GASTROINTESTINAL: Absent: abdominal pain, abdominal distension, nausea, vomiting, diarrhea, constipation, melena, hematochezia GENITOURINARY: Absent: dysuria, frequency, urgency, hesitancy, hematuria, flank pain, genital pain MUSCULOSKELETAL: Absent: myalgia, arthralgia, joint swelling, back pain, neck pain SKIN: Absent: rash, itching, pallor HEMATOLOGIC/IMMUNOLOGIC: Absent: easy bleeding, easy bruising, lymphadenopathy, frequent infections ENDOCRINE: Absent: unexplained weight gain, unexplained weight loss, heat intolerance, cold intolerance NEUROLOGIC: Absent: headache, focal weakness or paresthesias, dizziness, unsteady gait, seizure, mental status changes, bladder or bowel incontinence PSYCHIATRIC: Absent: anxiety, depression, suicidal or homicidal ideation, hallucinations. PHYSICAL EXAMINATION Vital Signs - 24 hr 11/19/17 11/19/17 11/19/17 07:17 07:33 07:34 Temperature 98.3 F 98.3 F Pulse Rate 65 65 Respiratory 18 18 Rate Blood Pressure 147/90 147/90 O2 Sat by Pulse 96 Oximetry (%) 11/19/17 11/19/17 11/19/17 12:04 12:15 12:30 Temperature 97.6 F Pulse Rate 74 62 62 Respiratory 16 22 24 Rate Blood Pressure 144/72 144/95 128/72 O2 Sat by Pulse 96 99 96 Oximetry (%) 11/19/17 11/19/17 11/19/17 12:45 13:00 13:15 Temperature Pulse Rate 64 64 62 Respiratory 24 22 22 Rate Blood Pressure 124/49 109/54 112/59 O2 Sat by Pulse 98 96 95 Oximetry (%) 11/19/17 11/19/17 11/19/17 13:30 13:45 14:00 Temperature Pulse Rate 66 64 66 Respiratory 24 18 16 Rate Blood Pressure 111/55 117/55 118/58 O2 Sat by Pulse 94 L 88 L 94 L Oximetry (%) 11/19/17 11/19/17 11/19/17 14:15 14:20 14:55 Temperature 97.8 F Pulse Rate 66 75 Respiratory 22 16 Rate Blood Pressure 121/56 126/70 O2 Sat by Pulse 91 L Oximetry (%) 11/19/17 11/19/17 11/19/17 15:38 16:10 17:03 Temperature Pulse Rate Respiratory Rate Blood Pressure O2 Sat by Pulse 93 L 88 L 89 L Oximetry (%) 11/19/17 17:12 Temperature Pulse Rate Respiratory Rate Blood Pressure O2 Sat by Pulse 89 L Oximetry (%) GENERAL: Awake, alert, and fully oriented, in no acute distress. HEAD: Normal with no signs of trauma. EYES: Pupils equal, round and reactive to light, extraocular movements intact, sclera anicteric, conjunctiva clear. No lid lag. EARS, NOSE, THROAT: Ears normal, nares patent, oropharynx clear without exudates. Moist mucous membranes. NECK: Normal range of motion, supple without lymphadenopathy, JVD, or masses. LUNGS: Breath sounds equal, clear to auscultation bilaterally. No wheezes, and no crackles. No accessory muscle use. poor inspiratory effort HEART: Regular rate and rhythm, normal S1 and S2 without murmur, rub or gallop. ABDOMEN: Soft, nontender, not distended, normoactive bowel sounds, no guarding, no rebound, no masses. No hepatomegaly or splenomegaly. MUSCULOSKELETAL: Normal range of motion at all joints. No bony deformities or tenderness. No CVA tenderness. UPPER EXTREMITIES: 2+ pulses, warm, well-perfused. No cyanosis. No clubbing. No peripheral edema. LOWER EXTREMITIES: 2+ pulses, warm, well-perfused. No calf tenderness. No peripheral edema. NEUROLOGICAL: Cranial nerves II-XII intact. Normal speech. Normal gait. PSYCHIATRIC: Cooperative. Good eye contact. Appropriate mood and affect. SKIN: Warm, dry, normal turgor, no rashes or lesions noted, normal capillary refill. ASSESSMENT/PLAN: 77yo F wtih PMH breast ca s/p chemo/RTx, asthma, afib, CHF, CAD and HTN came for scheduled R shoulder arthoscopy.and found to be hypoxic 1. Acute hypoxic respiratory distress- medicine observation. likely due to anesthesia vs uncontrolled asthma. currently 82% on RA and improves to 95% on 2L NC. seems like asthma is not controlled at baseline. will need to step up in management. start symbicort. check CXR, check routine labs including cardiac enzyme. 2. afib- cont rate control with metopolol. hold eliquis until confirmation from ortho that we can re-start 3. R shoulder inpingement- s/p arthroscopy. R arm to remain in sling. no lifting with R arm. incentive spirometer. pain control. further management per ortho 4. HTN- controlled. cont home medications 5. breast ca s/p chemo/RTx 6. hypothyroid- cont LT4 7. DVT ppx- on eliquis but currently held until confirmation can be re-started post surgery. 8. [facility] to resume care in the morning Visit type - Emergency Visit Emergency Visit: No - New Patient This patient is new to me today: Yes Date on this admission: 11/19/17 - Critical Care Critical Care patient: No Hospitalist Screening - Colonoscopy Questionnaire Colonoscopy Questionnaire: Colonoscopy Questionnaire - Patient: 50 - 75 years old and never had a screening colonoscopy: Unknown History of colon or rectal polyps, or CA: Unknown History of IBD, Crohn's disease or UC: Unknown History of abdominal radiation therapy as a child: Unknown - Relative: 1 with colon or rectal CA, or polyps at age 60 or younger: Unknown Colon or rectal CA diagnosed at age 45 or younger: Unknown Multiple relatives with colon or rectal CA: Unknown - Outcome: Screening Result: Negative Screen
[2017-11-19] MEDS ORDERED: APIXABAN 5 MG TABLET PO SCH (22:00)
[2017-11-19] MEDS ORDERED: PATIENT'S OWN MEDICATION (NON-FORMULARY) (Meloxicam [Mobic] 7.5 MG) PO SCH (22:00)
[2017-11-19] MEDS ORDERED: PATIENT'S OWN MEDICATION (NON-FORMULARY) (Solifenacin Succinate [Vesicare -] 10 MG) PO SCH (22:00)
[2017-11-19] MEDS ORDERED: PREGABALIN 100 MG CAPSULE PO SCH (22:00)
[2017-11-19] MEDS: BUDESONIDE/FORMETEROL FUMARATE 80/4.5 mcg INHALER IH SCH (22:35)
[2017-11-19] MEDS: SOLIFENACIN SUCCINATE 5 MG TAB (FP) PO SCH (22:36)
[2017-11-19] MEDS: PRAMIPEXOLE DIHYDROCHLORIDE 0.25 MG TABLET PO SCH (22:36)
[2017-11-19] MEDS: ROSUVASTATIN CA 10 MG TABLET (FP) PO SCH (22:36)
[2017-11-19 22:38] LABS: BASO % 0.1 % (0-2.0); HEMOGLOBIN 11.7 GM/dL (10.7-15.3); LYMPH % 10.6 % (8-40); MCH 30.1 pg (25.7-33.7); MCHC 33.4 g/dl (32.0-36.0); MEAN CELL VOLUME 89.9 fl (80-96); MEAN PLT VOLUME 8.5 fl (7.5-11.1); MONO % 1.6 % (3.8-10.2); NEUT % 87.7 % (42.8-82.8); PLATELET COUNT 173 K/MM3 (134-434); RDW 14.6 % (11.6-15.6); WHITE BLOOD COUNT 6.4 K/mm3 (4.0-10.0)
[2017-11-19] MEDS: PREGABALIN 50 MG CAPSULE PO SCH (22:38)
[2017-11-19 23:08] LABS: ANION GAP 13 (8-16); BLOOD UREA NITROGEN 14 mg/dL (7-18); CALCIUM 8.3 mg/dL (8.5-10.1); CHLORIDE 105 mmol/L (98-107); CO2 24 mmol/L (21-32); CREATININE 0.8 mg/dL (0.55-1.02); GLUCOSE,RANDOM 146 mg/dL (74-106); MAGNESIUM 1.8 mg/dL (1.8-2.4); POTASSIUM 3.9 mmol/L (3.5-5.1); SGOT/AST 17 U/L (15-37); SGPT/ALT 22 U/L (12-78); SODIUM 142 mmol/L (136-145)
[2017-11-19 23:09] LABS: ALK PHOS 54 U/L (45-117); BILIRUBIN,TOTAL 0.3 mg/dL (0.2-1.0); TOT PROT 6.2 g/dl (6.4-8.2)
[2017-11-20] MEDS: LEVOTHYROXINE NA 50 MCG TABLET (FP) PO SCH (06:24)
[2017-11-20] MEDS: oxyCODONE HCL 5 MG TABLET PO PRN (06:26)
[2017-11-20] MEDS ORDERED: IBUPROFEN 800 MG/8 ML IJ IVPB PRN (09:05)
--- NOTE | 2017-11-20 09:10 | PN ---
Progress Note (short form) - Note Progress Note: Post op day#1.s/P Right shoulder arthroscopy under [place] uneventful. Patient was hypoxic so she was addmitted to monitor her progress.She has some atelactasis on CXR.O2 Sat in 94-96% on O2 2L.Also she c/o lot of pain so put patient on Caldolor in addition to oxycodone.Patient will be dc today.Patient dc from the anesthesia care.
--- NOTE | 2017-11-20 10:01 | PN ---
Progress Note (short form) - Note Progress Note: Pt doing fine on POD #1. AVSS, O2 Sat low at 92%, likely her baseline, on NC O2 B/L UE NVI Dressing CDI Pt cleared for DC/transfer from an orthopedic POV
[2017-11-20] MEDS ORDERED: PT OWN MED DRAWER 7, Y5N ONE ×2 (10:03→21:37)
[2017-11-20] MEDS: HYDROCHLOROTHIAZIDE 12.5 MG CAPSULE (FP) PO SCH (10:11)
[2017-11-20] MEDS: PREGABALIN 50 MG CAPSULE PO SCH ×2 (10:11→21:50)
[2017-11-20] MEDS: LOSARTAN POTASSIUM 50 MG TABLET (FP) PO SCH (10:11)
[2017-11-20] MEDS: PANTOPRAZOLE 40 MG TABLET (FP) PO SCH (10:11)
[2017-11-20] MEDS: BUDESONIDE/FORMETEROL FUMARATE 80/4.5 mcg INHALER IH SCH ×2 (10:12→21:51)
[2017-11-20] MEDS: PRAMIPEXOLE DIHYDROCHLORIDE 0.25 MG TABLET PO SCH ×2 (10:12→21:51)
[2017-11-20] MEDS: hydrOXYzine HCL 10 MG TABLET PO SCH (10:12)
--- NOTE | 2017-11-20 15:58 | PN ---
Progress Note, Physician Chief Complaint: Ms Davies complains of shortness of breath but is improved. Still with significant pain in her shoulder. No chest pain or n/v. - Current Medication List Current Medications: Active Medications Albuterol Sulfate (Ventolin 0.083% Nebulizer Soln -) 1 amp NEB Q4H PRN PRN Reason: SHORT OF BREATH/WHEEZING Last Admin: 11/20/17 07:59 Dose: 1 amp Budesonide/Formoterol Fumarate (Symbicort 80/4.5mcg -) 2 puff IH BID [facility] Last Admin: 11/20/17 10:12 Dose: 2 puff Fentanyl (Sublimaze Injection -) 25 mcg IVPUSH [id number] PRN PRN Reason: PAIN-PACU ORDER X 4 DOSES ONLY Hydrochlorothiazide (Hctz -) 12.5 mg PO DAILY [facility] Last Admin: 11/20/17 10:11 Dose: 12.5 mg Hydroxyzine HCl (Atarax -) 10 mg PO DAILY [facility] Last Admin: 11/20/17 10:12 Dose: 10 mg Lactated Ringer's (Lactated Ringers Solution) 1,000 mls @ 125 mls/hr IV ASDIR [facility] Ibuprofen (Caldolor Injection -) 600 mg IVPB Q8H PRN PRN Reason: FEVER Levothyroxine Sodium (Synthroid -) 50 mcg PO 0700 [facility] Last Admin: 11/20/17 06:24 Dose: 50 mcg Losartan Potassium (Cozaar -) 50 mg PO DAILY [facility] Last Admin: 11/20/17 10:11 Dose: 50 mg Metoprolol Succinate (Toprol Xl -) 50 mg PO DAILY [facility] Last Admin: 11/20/17 10:11 Dose: 50 mg Non-Formulary Medication (Meloxicam [Mobic]) 7.5 mg PO BID [facility] Ondansetron HCl (Zofran Injection) 4 mg IVPUSH Q6H PRN PRN Reason: NAUSEA AND/OR VOMITING Oxycodone HCl (Roxicodone -) 5 mg PO Q4H PRN PRN Reason: PAIN LEVEL 1-5 Oxycodone HCl (Roxicodone -) 10 mg PO Q4H PRN PRN Reason: PAIN LEVEL 6-10 Last Admin: 11/20/17 06:26 Dose: 10 mg Pantoprazole Sodium (Protonix -) 40 mg PO DAILY [facility] Last Admin: 11/20/17 10:11 Dose: 40 mg Pramipexole Dihydrochloride (Mirapex -) 0.25 mg PO BID [facility] Last Admin: 11/20/17 10:12 Dose: 0.25 mg Pregabalin (Lyrica -) 100 mg PO BID [facility] Last Admin: 11/20/17 10:11 Dose: 100 mg Rosuvastatin Calcium (Crestor -) 10 mg PO [facility] Last Admin: 11/19/17 22:36 Dose: 10 mg Solifenacin (Vesicare -) 5 mg PO [facility] Last Admin: 11/19/17 22:36 Dose: 5 mg - Objective Vital Signs: Vital Signs Temperature 36.7 C 11/20/17 14:00 Pulse Rate 83 11/20/17 06:00 Respiratory Rate 18 11/20/17 06:00 Blood Pressure 137/69 11/20/17 06:00 O2 Sat by Pulse Oximetry (%) 92 L 11/20/17 02:04 Constitutional: Yes: No Distress, Calm, Obese Cardiovascular: Yes: Regular Rate and Rhythm. No: Gallop, Murmur, Rub Respiratory: Yes: Regular, CTA Bilaterally, On Nasal O2. No: Rales, Rhonchi, Wheezes Gastrointestinal: Yes: Normal Bowel Sounds, Soft. No: Distention, Tenderness Extremities: Yes: WNL Edema: No Labs: CBC, BMP 11/19/17 22:00 11/19/17 22:00 Problem List - Problems (1) COPD exacerbation Assessment/Plan: -patient presents with hypoxia secondary to COPD exacerbation -continue symbicort -add scheduled duonebs -prn albuterol -add I/S for atelectasis -wean oxygen as tolerated -will hold on steroids secondary to recent surgery and no wheezing Code(s): J44.1 - CHRONIC OBSTRUCTIVE PULMONARY DISEASE W (ACUTE) EXACERBATION (2) HTN (hypertension) Assessment/Plan: -continue cozaar, toprol xl, and HCTZ -monitor Code(s): I10 - ESSENTIAL (PRIMARY) HYPERTENSION (3) HLD (hyperlipidemia) Assessment/Plan: -continue crestor Code(s): E78.5 - HYPERLIPIDEMIA, UNSPECIFIED (4) Hypothyroid Assessment/Plan: -continue synthroid Code(s): E03.9 - HYPOTHYROIDISM, UNSPECIFIED (5) Shoulder impingement Assessment/Plan: -orthopedic surgery following -s/p arthroscopy -safe for discharge from ortho standpoint -continue PT Code(s): M75.40 - IMPINGEMENT SYNDROME OF UNSPECIFIED SHOULDER Qualifiers: Laterality: right Qualified Code(s): M75.41 - Impingement syndrome of right shoulder Assessment/Plan Dispo -plan for d/c to SNF once COPD resolved
--- NOTE | 2017-11-20 17:48 | PATH ---
Surgical Pathology Report Patient Name: JUNITO DUPREE Med. Rec. #: [id number] /Age/Gender: 1940 (Age: 77) / F Account: [id number] Location: [address] [place] [address]/[facility] Taken: 11/19/2017 Received: 11/19/2017 Reported: 11/20/2017 Physicians: Micheal Rucker M.D. Specimen(s) Received RIGHT SHOULDER SHAVINGS Clinical History Rotator cuff tear right shoulder Final Diagnosis SHOULDER SHAVINGS, RIGHT, ARTHROSCOPY: FRAGMENTS OF BENIGN CARTILAGE, DENSE FIBROCONNECTIVE TISSUE, SYNOVIUM, ADIPOSE TISSUE, AND SKELETAL MUSCLE. Electronically Signed Junito Meyers M.D. Gross Description Received in formalin, labeled "right shoulder shavings," is a 4.0 x 3.3 x 0.3 cm. aggregate of whiting-yellow soft tissue fragments. A footwear sales representative portion is submitted in one cassette. /11/19/201711/19/2017
[2017-11-20] MEDS: ALBUTEROL SO4 2.5/IPRATROPIUM 0.5 INH SOL 3 ML VIAL.NEB. NEB SCH (20:22)
[2017-11-20] MEDS: SOLIFENACIN SUCCINATE 5 MG TAB (FP) PO SCH (21:50)
[2017-11-20] MEDS: ROSUVASTATIN CA 10 MG TABLET (FP) PO SCH (21:51)
[2017-11-21] MEDS: LEVOTHYROXINE NA 50 MCG TABLET (FP) PO SCH (06:41)
[2017-11-21] MEDS: oxyCODONE HCL 5 MG TABLET PO PRN ×2 (06:41→20:31)
[2017-11-21 08:00] LABS: BASO % 0.2 % (0-2.0); EOS % 0.3 % (0-4.5); HEMATOCRIT 29.7 % (32.4-45.2); HEMOGLOBIN 10.1 GM/dL (10.7-15.3); LYMPH % 30.1 % (8-40); MCH 30.3 pg (25.7-33.7); MCHC 33.9 g/dl (32.0-36.0); MEAN CELL VOLUME 89.3 fl (80-96); MEAN PLT VOLUME 8.5 fl (7.5-11.1); MONO % 9.3 % (3.8-10.2); NEUT % 60.1 % (42.8-82.8); PLATELET COUNT 167 K/MM3 (134-434); RBC 3.32 M/mm3 (3.60-5.2); RDW 14.5 % (11.6-15.6); WHITE BLOOD COUNT 6.8 K/mm3 (4.0-10.0)
[2017-11-21] MEDS: ALBUTEROL SO4 2.5/IPRATROPIUM 0.5 INH SOL 3 ML VIAL.NEB. NEB SCH ×3 (08:24→20:38)
[2017-11-21 08:28] LABS: CHLORIDE 106 mmol/L (98-107); SODIUM 143 mmol/L (136-145)
[2017-11-21 08:37] LABS: ANION GAP 11 (8-16); BLOOD UREA NITROGEN 23 mg/dL (7-18); CALCIUM 8.2 mg/dL (8.5-10.1); CO2 26 mmol/L (21-32); CREATININE 0.6 mg/dL (0.55-1.02); GLUCOSE,RANDOM 81 mg/dL (74-106); MAGNESIUM 2.1 mg/dL (1.8-2.4); PHOSPHOROUS 3.3 mg/dL (2.5-4.9)
[2017-11-21] MEDS ORDERED: PT OWN MED DRAWER 7, Y5N ONE ×2 (09:36→21:11)
[2017-11-21] MEDS: PRAMIPEXOLE DIHYDROCHLORIDE 0.25 MG TABLET PO SCH ×2 (09:38→21:15)
[2017-11-21] MEDS: BUDESONIDE/FORMETEROL FUMARATE 80/4.5 mcg INHALER IH SCH ×2 (09:39→21:15)
[2017-11-21] MEDS: PANTOPRAZOLE 40 MG TABLET (FP) PO SCH (09:39)
[2017-11-21] MEDS: HYDROCHLOROTHIAZIDE 12.5 MG CAPSULE (FP) PO SCH (09:39)
[2017-11-21] MEDS: PREGABALIN 50 MG CAPSULE PO SCH ×2 (09:39→21:14)
[2017-11-21] MEDS: hydrOXYzine HCL 10 MG TABLET PO SCH (09:39)
[2017-11-21] MEDS: LOSARTAN POTASSIUM 50 MG TABLET (FP) PO SCH (09:39)
--- NOTE | 2017-11-21 11:56 | PN ---
Progress Note (short form) - Note Progress Note: Ortho Pt see and examined s/p right shoulder arthroscopy pod #2. doing well Selected Entries 11/21/17 11/21/17 06:00 11:09 Temperature 98.5 F Pulse Rate 79 Respiratory 18 Rate Blood Pressure 101 Mean O2 Sat by Pulse 94 L Oximetry (%) Laboratory Tests 11/21/17 06:00 WBC 6.8 Hgb 10.1 L D Hct 29.7 L D Plt Count 167 dressing c/d/i, +ttp, FF 90, ER 30, IR- buttock nvi a/p PT ROM exercises ok to d/c from ortho pov
--- NOTE | 2017-11-21 16:50 | DS ---
Physical Examination Vital Signs: Vital Signs Temperature 37.4 C 11/21/17 14:00 Pulse Rate 94 H 11/21/17 11:09 Respiratory Rate 18 11/21/17 08:00 Blood Pressure 136/69 11/21/17 08:00 O2 Sat by Pulse Oximetry (%) 94 L 11/21/17 11:09 Constitutional: Yes: Well Nourished, No Distress, Calm Cardiovascular: Yes: Regular Rate and Rhythm. No: Gallop, Murmur, Rub Respiratory: Yes: Regular, CTA Bilaterally. No: Rales, Rhonchi, Wheezes Gastrointestinal: Yes: Normal Bowel Sounds, Soft. No: Distention, Tenderness Extremities: Yes: WNL Edema: No Labs: CBC, BMP 11/21/17 06:00 11/21/17 06:45 Discharge Summary Reason For Visit: TEAR (RIGHT SHOULDER) Current Active Problems COPD exacerbation (Acute) HLD (hyperlipidemia) (Acute) HTN (hypertension) (Acute) Hypothyroid (Acute) Shoulder impingement (Acute) Hospital Course: (1) COPD exacerbation Code(s): J44.1 - CHRONIC OBSTRUCTIVE PULMONARY DISEASE W (ACUTE) EXACERBATION (2) HTN (hypertension) Code(s): I10 - ESSENTIAL (PRIMARY) HYPERTENSION (3) HLD (hyperlipidemia) Code(s): E78.5 - HYPERLIPIDEMIA, UNSPECIFIED (4) Hypothyroid Code(s): E03.9 - HYPOTHYROIDISM, UNSPECIFIED (5) Shoulder impingement Code(s): M75.40 - IMPINGEMENT SYNDROME OF UNSPECIFIED SHOULDER Qualifiers: Laterality: right Qualified Code(s): M75.41 - Impingement syndrome of right shoulder Ms Davies is a pleasant 77 year old female who came in for shoulder impingement and had to be admitted for COPD exacerbation. She was placed on oxygen and started on scheduled duonebs. She improved clinically but remained hypoxic on exertion. PT saw her and felt she would benefit from SNF for strengthening. Also with new oxygen placement and use of only one arm she is appropriate for SNF as well. Case d/w patient and family and she is stable for discharge to SNF when bed available 45 minutes spent in preparation of this discharge Condition: Good - Instructions Diet, Activity, Other Instructions: Post -op Instruction Sheet - Shoulder Surgery - Sling/Immobilizer : You have been placed in a sling or shoulder immobilizer. As long as you are wearing this, your shoulder is well protected. You may come out of the sling to dress , or do exercises as directed. You may bend and straighten the elbow, and move your wrist and fingers, but DO NOT use your own muscles to move your elbow away from your side until directed to do so. Please sleep with the sling on. You may find it more comfortable to sleep with a small pillow behind your elbow, or in a recliner. To wash your armpit, you may lean slightly forward and let your arm dangle slightly away from your side and wash with a washcloth. - Use an ice bag/pack on the shoulder for 15 minutes every 2 hours. - Pain medication was sent to your Pharmacy. - Keep your dressing clean and dry. Please call the office to make an appointment for 1 week after surgery. Your dressing will be removed at that time. - No Lifting. - Starting 1-2 days after surgery, you may take your arm out of the sling 3 times a day to bend and straighten your elbow and wrist to prevent stiffness. If only an arthroscopy was performed and NO repairs, you may move your shoulder as tolerated. If a rotator cuff/labral repair was performed, DO NOT move your shoulder until instructed by surgeon. - Please call the office at [phone] if there are any questions or concerns. Referrals: Micheal Rucker MD [Staff Physician] - Disposition: LONG-TERM FACILITY - Home Medications Comprehensive Discharge Medication List: Ambulatory Orders Alendronate Sodium 70 mg PO UTDICT 10/16/11 Ferrous Fumarate [Iron] 325 mg PO DAILY 10/16/11 Levothyroxine [Synthroid -] 50 mcg PO DAILY 10/16/11 Metoprolol "Xl" (Sustain Act) [Toprol Xl] 50 mg PO DAILY 10/16/11 Hydrochlorothiazide [Hctz -] 12.5 mg PO DAILY 12/31/13 Rosuvastatin [Crestor -] 10 mg PO HS #0 01/06/14 Cyanocobalamin [Vitamin B12 -] 2,500 mcg PO DAILY 06/07/14 Losartan Potassium 50 mg PO DAILY 06/07/14 Pantoprazole Sodium [Protonix] 40 mg PO DAILY 06/07/14 Pramipexole Di-HCl [Mirapex] 0.25 mg PO BID 06/07/14 Oxybutynin Chloride [Ditropan Xl] 10 mg PO DAILY 07/05/16 Albuterol Sulfate [Proventil HFA Inhaler -] 1 - 2 inh PO QID PRN 11/18/17 Apixaban [Eliquis] 5 mg PO BID 11/18/17 Ascorbate Calcium [Vitamin C] 500 mg PO DAILY 11/18/17 Hydroxyzine HCl 10 mg PO DAILY 11/18/17 Meloxicam [Mobic] 7.5 mg PO BID 11/18/17 Pregabalin [Lyrica] 100 mg PO BID 11/18/17 Solifenacin Succinate [Vesicare -] 10 mg PO DAILY 11/18/17 Hydrocodone/Acetaminophen [[place] 5-325 Tablet] 1 each PO Q6H PRN #40 tablet MDD 4 11/19/17 Albuterol 0.083% Nebulizer Rachelle [Ventolin 0.083% Nebulizer Soln -] 1 amp NEB Q4H PRN amp 11/21/17 Albuterol 2.5/Ipratropium 0.5 [Duoneb -] 1 amp NEB RTID #0 amp 11/21/17 Budesonide/Formeterol Fumarate [SYMBICORT 80/4.5mcg -] 2 puff IH BID inhaler oxyCODONE HCL [Roxicodone -] 5 mg PO Q4H PRN tablet MDD 60mg 11/21/17 oxyCODONE HCL [Roxicodone -] 10 mg PO Q4H PRN tablet MDD 60mg 11/21/17
[2017-11-21] MEDS ORDERED: diphenhydrAMINE HCL 25 MG CAPSULE (FP) PO ONE (21:08)
[2017-11-21] MEDS ORDERED: HYDROCORTISONE 1% TOPICAL LOTION 118 ML BOTTLE TP PRN (21:08)
[2017-11-21] MEDS: SOLIFENACIN SUCCINATE 5 MG TAB (FP) PO SCH (21:13)
[2017-11-21] MEDS: ROSUVASTATIN CA 10 MG TABLET (FP) PO SCH (21:14)
[2017-11-22] MEDS ORDERED: POLYETHYLENE GLYCOL 3350 119 GM BTL PO SCH
[2017-11-22] MEDS: oxyCODONE HCL 5 MG TABLET PO PRN (01:44)
[2017-11-22] MEDS: LEVOTHYROXINE NA 50 MCG TABLET (FP) PO SCH (06:09)
[2017-11-22] MEDS: ALBUTEROL SO4 2.5/IPRATROPIUM 0.5 INH SOL 3 ML VIAL.NEB. NEB SCH ×2 (08:05→14:15)
[2017-11-22 08:13] VITALS: BP 135/70
[2017-11-22] MEDS: LOSARTAN POTASSIUM 50 MG TABLET (FP) PO SCH (09:44)
[2017-11-22] MEDS: PANTOPRAZOLE 40 MG TABLET (FP) PO SCH (09:44)
[2017-11-22] MEDS: PREGABALIN 50 MG CAPSULE PO SCH (09:44)
[2017-11-22] MEDS: HYDROCHLOROTHIAZIDE 12.5 MG CAPSULE (FP) PO SCH (09:44)
[2017-11-22] MEDS: BUDESONIDE/FORMETEROL FUMARATE 80/4.5 mcg INHALER IH SCH (09:44)
[2017-11-22] MEDS: hydrOXYzine HCL 10 MG TABLET PO SCH (09:44)
[2017-11-22] MEDS: PRAMIPEXOLE DIHYDROCHLORIDE 0.25 MG TABLET PO SCH (09:44)
[2017-11-22] MEDS ORDERED: APIXABAN 5 MG TABLET PO SCH (10:00)
[2017-11-22 15:03] VITALS: PULSE 78; TEMP 99
[2017-11-23] MEDS ORDERED: POLYETHYLENE GLYCOL 3350 119 GM BTL PO SCH ×2 (14:12)
== END 2017-11-22 15:30 | disposition home or self-care (01) | DRG 315 ==
LOC: SUATTDRO 07:00 → JASU-SURG 07:00 → J6S 19:45 → JASU-SURG 19:46 → UNDODISIN 11-22 15:30
PROVIDERS: ADMIT Internal Medicine; ATTEND Internal Medicine
PROC: 0RNJ4ZZ Release Right Shoulder Joint, Percutaneous Endoscopic Approach (ICD-10-PCS; 2017-11-19)
PROC: 0JBD0ZZ Excision of Right Upper Arm Subcutaneous Tissue and Fascia, Open Approach (ICD-10-PCS; 2017-11-19)
PROC: 0MB14ZZ Excision of Right Shoulder Bursa and Ligament, Percutaneous Endoscopic Approach (ICD-10-PCS; principal; 2017-11-19 09:30)
DX: M25.811 Other specified joint disorders, right shoulder (principal); J44.1 Chronic obstructive pulmonary disease with (acute) exacerbation; I10 Essential (primary) hypertension; E78.5 Hyperlipidemia, unspecified; E03.9 Hypothyroidism, unspecified; I25.10 Atherosclerotic heart disease of native coronary artery without angina pectoris; Z85.3 Personal history of malignant neoplasm of breast; R09.02 Hypoxemia; I48.91 Unspecified atrial fibrillation; M75.51 Bursitis of right shoulder
CPT/HCPCS: 36415; 71045-TC-FY; 80048; 80053; 83735; 84100; 85025; 88304-TC; 93970-TC; 94010; 94640; 94667; 94760; 94761; 97116-GP; 97161-GP

== ENCOUNTER 2018-01-12 10:50 | Inpatient (IN) | payer OTHER, MEDICARE ==
[2018-01-12 11:11] VITALS: BMI 34.2
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
[2018-01-12] MEDS ORDERED: morphine CARPU-JECT 4 MG/1 ML DISP.SYRIN IVPUSH ONE (11:37)
[2018-01-12] MEDS ORDERED: morphine SULFATE 4 MG/ML VIAL ONE ×2 (11:55→12:23)
[2018-01-12 11:56] LABS: URINE APPEARANCE CLOUDY; URINE BILIRUBIN NEGATIVE (<2.0 mg/dL); URINE GLUCOSE (UA) NEGATIVE (NEGATIVE); URINE KETONE NEGATIVE (NEGATIVE); URINE NITRITE POSITIVE (NEGATIVE); URINE PROTEIN NEGATIVE (NEGATIVE)
[2018-01-12 11:57] LABS: URINE COLOR DK YELLOW; URINE LEUK ESTERASE 2+ (NEGATIVE)
[2018-01-12 12:01] LABS: BASO % 0.4 % (0-2.0); EPI CELLS RARE /HPF (FEW); HEMATOCRIT 32.8 % (32.4-45.2); HEMOGLOBIN 11.2 GM/dL (10.7-15.3); LYMPH % 11.4 % (8-40); MCH 30.2 pg (25.7-33.7); MCHC 34.1 g/dl (32.0-36.0); MEAN CELL VOLUME 88.5 fl (80-96); MEAN PLT VOLUME 8.7 fl (7.5-11.1); MONO % 9.3 % (3.8-10.2); NEUT % 78.9 % (42.8-82.8); PLATELET COUNT 151 K/MM3 (134-434); RBC 3.71 M/mm3 (3.60-5.2); RDW 14.6 % (11.6-15.6); URINE BACTERIA MANY /hpf (NONE SEEN); URINE MUCUS RARE; WHITE BLOOD COUNT 12.9 K/mm3 (4.0-10.0)
[2018-01-12] MEDS ORDERED: morphine CARPU-JECT 2 MG/1 ML DISP.SYRIN IVPUSH ONE (12:12)
[2018-01-12] MEDS ORDERED: ACETAMINOPHEN 1000 MG/100 ML VIAL (NON FORMULARY) IVPB ONE (12:12)
[2018-01-12 12:20] LABS: ALBUMIN 2.9 g/dl (3.4-5.0); ALK PHOS 59 U/L (45-117); ANION GAP 5 (8-16); BILIRUBIN,TOTAL 0.7 mg/dL (0.2-1.0); BLOOD UREA NITROGEN 10 mg/dL (7-18); CALCIUM 8.1 mg/dL (8.5-10.1); CHLORIDE 103 mmol/L (98-107); CO2 29 mmol/L (21-32); CREATININE 0.6 mg/dL (0.55-1.02); GLUCOSE,RANDOM 116 mg/dL (74-106); SGPT/ALT 15 U/L (12-78); SODIUM 137 mmol/L (136-145); TOT PROT 6.3 g/dl (6.4-8.2)
[2018-01-12 12:21] LABS: POTASSIUM 4.4 mmol/L (3.5-5.1); SGOT/AST 22 U/L (15-37)
[2018-01-12] MEDS ORDERED: ACETAMINOPHEN INJECTION 100 ML IVPB ONE (12:23)
[2018-01-12] MEDS ORDERED: CEFTRIAXONE 1 GM in DEXTROSE 5%-WATER - 50 ML IVPB ONE (16:35)
[2018-01-12] MEDS ORDERED: CEFTRIAXONE 1 GM/50 ML BAG ONE (16:46)
--- NOTE | 2018-01-12 16:51 | HP ---
Admitting History and Physical - Primary Care Physician PCP: Aureliano Henry - Admission History of Present Illness: is a pleasant 77 year old female who comes in with complaints for worsening low back pain radiating to lower extremities and inability to ambulate at home. She reports the onset of b/l lower extremity pain started 3 days ago and has gotten worse now to the point she is not able to walk. She describes the pain as sharp, pins and needles. She reports she [facility] a [facility] ago without head trauma. She reports dysuria and urinary frequency x 2 weeks. She denies any fever/chills, chest pain, sob, n/v/d, unilateral weakness, rash, or recent travel. 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 Cardiovascular: Yes: AFIB, CAD, HTN, Hyperlipdemia Pulmonary: Yes: Asthma, COPD Gastrointestinal: Yes: GERD Reproductive: Yes: Other (breast CA) Heme/Onc: Yes: Anemia Endocrine: Yes: Hypothyroidism Additional Past Medical History: Breast CA - Past Surgical History Past Surgical History: Yes: Joint Replacement (left hip, TKR right), Mastectomy (Left) Additional Past Surgical History: Urethral Sling procedure, bladder suspension surgery - Smoking History Smoking history: Never smoked Have you smoked in the past 12 months: No Aproximately how many cigarettes per day: 0 - Alcohol/Substance Use Hx Alcohol Use: No - Social History Usual Living Arrangement: Yes: With Child History of Recent Travel: No Home Medications - Allergies Allergies/Adverse Reactions: Allergies Allergy/AdvReac Type Severity Reaction Status Date / Time No Known Drug Allergies Allergy Verified 01/12/18 11:07 - Home Medications Home Medications: Ambulatory Orders Alendronate Sodium 70 mg PO UTDICT 10/16/11 Ferrous Fumarate [Iron] 325 mg PO DAILY 10/16/11 Levothyroxine [Synthroid -] 50 mcg PO DAILY 10/16/11 Metoprolol "Xl" (Sustain Act) [Toprol Xl] 50 mg PO DAILY 10/16/11 Hydrochlorothiazide [Hctz -] 12.5 mg PO DAILY 12/31/13 Rosuvastatin [Crestor -] 10 mg PO HS #0 01/06/14 Cyanocobalamin [Vitamin B12 -] 2,500 mcg PO DAILY 06/07/14 Losartan Potassium 50 mg PO DAILY 06/07/14 Pantoprazole Sodium [Protonix] 40 mg PO DAILY 06/07/14 Pramipexole Di-HCl [Mirapex] 0.25 mg PO BID 06/07/14 Oxybutynin Chloride [Ditropan Xl] 10 mg PO DAILY 07/05/16 Albuterol Sulfate [Proventil HFA Inhaler -] 1 - 2 inh PO QID PRN 11/18/17 Apixaban [Eliquis] 5 mg PO BID 11/18/17 Ascorbate Calcium [Vitamin C] 500 mg PO DAILY 11/18/17 Pregabalin [Lyrica] 100 mg PO BID 11/18/17 Solifenacin Succinate [Vesicare -] 10 mg PO DAILY 11/18/17 Hydrocodone/Acetaminophen [[place] 5-325 Tablet] 1 each PO Q6H PRN #40 tablet MDD 4 11/19/17 Albuterol 2.5/Ipratropium 0.5 [Duoneb -] 1 amp NEB RTID #0 amp 11/21/17 Budesonide/Formeterol Fumarate [SYMBICORT 80/4.5mcg -] 2 puff IH BID inhaler oxyCODONE HCL [Roxicodone -] 5 mg PO Q4H PRN tablet MDD 60mg 11/21/17 Family Disease History - Family Disease History Family History: Denies Physical Examination Vital Signs: Vital Signs Temperature 98.9 F 01/12/18 11:07 Pulse Rate 72 01/12/18 14:30 Respiratory Rate 20 01/12/18 14:30 Blood Pressure 135/74 01/12/18 14:30 O2 Sat by Pulse Oximetry (%) 97 01/12/18 14:30 Labs: CBC, BMP 01/12/18 11:39 01/12/18 11:39 Imaging - Results Chest X-ray: Report Reviewed X-ray: Report Reviewed Cat Scan: Report Reviewed EKG: Report Reviewed Problem List - Problems (1) UTI (urinary tract infection) Assessment/Plan: UA+, +leuk es, +nitrite pt reports dysuria, urinary freq UC pending ceftriaxone day 1 will monitor Code(s): N39.0 - URINARY TRACT INFECTION, SITE NOT SPECIFIED Qualifiers: Urinary tract infection type: site unspecified Hematuria presence: with hematuria Qualified Code(s): N39.0 - Urinary tract infection, site not specified; R31.9 - Hematuria, unspecified; R31.9 - Hematuria, unspecified (2) Leukocytosis Assessment/Plan: secondary to UTI plan as above Code(s): D72.829 - ELEVATED WHITE BLOOD CELL COUNT, UNSPECIFIED (3) Fall Assessment/Plan: s/p fall w/out loc/head trauma 2 weeks ago, mechanical coccyx/lumbar/thoracic xrays without acute fracture fall precautions Code(s): W19.XXXA - UNSPECIFIED FALL, INITIAL ENCOUNTER (4) Low back pain Assessment/Plan: worsening low back pain w/ radiation to RLE lumbar CT without acute findings tylenol/ morphine PT further imaging, and neuro consult if pain persists Code(s): M54.5 - LOW BACK PAIN Qualifiers: Chronicity: acute Back pain laterality: bilateral (5) HLD (hyperlipidemia) Assessment/Plan: chronic continue crestor Code(s): E78.5 - HYPERLIPIDEMIA, UNSPECIFIED (6) HTN (hypertension) Assessment/Plan: controlled continue hct/metoprolol Code(s): I10 - ESSENTIAL (PRIMARY) HYPERTENSION Qualifiers: Hypertension type: essential hypertension Qualified Code(s): I10 - Essential (primary) hypertension (7) Hypothyroid Assessment/Plan: chronic continue levothyroxine Code(s): E03.9 - HYPOTHYROIDISM, UNSPECIFIED (8) Afib Assessment/Plan: in SR now continue metoprolol/ eliquis Code(s): I48.91 - UNSPECIFIED ATRIAL FIBRILLATION Qualifiers: Atrial fibrillation type: chronic Qualified Code(s): I48.2 - Chronic atrial fibrillation (9) CAD (coronary artery disease) Assessment/Plan: stable continue statin Code(s): I25.10 - ATHSCL HEART DISEASE OF [place] CORONARY ARTERY W/O ANG PCTRS (10) COPD (chronic obstructive pulmonary disease) Assessment/Plan: chronic continue current management Code(s): J44.9 - CHRONIC OBSTRUCTIVE PULMONARY DISEASE, UNSPECIFIED (11) Osteoarthritis Assessment/Plan: chronic Tylenol PT Code(s): M19.90 - UNSPECIFIED OSTEOARTHRITIS, UNSPECIFIED SITE Qualifiers: Osteoarthritis location: spine Spinal region: cervical (12) History of breast cancer Assessment/Plan: s/p chemp, xrt, left partial mastectomy Code(s): Z85.3 - PERSONAL HISTORY OF MALIGNANT NEOPLASM OF BREAST
[2018-01-12] MEDS ORDERED: ALBUTEROL SO4 18 GM HFA INHALER IH PRN (16:55)
[2018-01-12] MEDS ORDERED: [UNRECOGNIZED DRUG - OTHER] PO PRN (16:55)
[2018-01-12] MEDS ORDERED: ACETAMINOPHEN PO PRN (16:55)
[2018-01-12] MEDS ORDERED: HYDROCODONE PO PRN (16:55)
[2018-01-12] MEDS ORDERED: PATIENT'S OWN MEDICATION (NON-FORMULARY) (Alendronate Sodium [Alendronate Sodium] 70 MG) PO SCH (17:00)
--- NOTE | 2018-01-12 18:24 | EKG ---
Test Reason : Blood Pressure : / mmHG Vent. Rate : 095 BPM Atrial Rate : 095 BPM P-R Int : 216 ms QRS Dur : 096 ms QT Int : 386 ms P-R-T Axes : 048 -07 033 degrees QTc Int : 485 ms SINUS RHYTHM WITH 1ST DEGREE A-V BLOCK OTHERWISE NORMAL ECG WHEN COMPARED WITH ECG OF 20-JAN-2017 10:48, PREMATURE VENTRICULAR COMPLEXES ARE NO LONGER PRESENT VENT. RATE HAS INCREASED BY 34 BPM Confirmed by YADI MANCILLA, TORRIE ([id number]) on 01/12/2018 6:24:21 PM Referred By: Confirmed By:TORRIE GRULLON MD
[2018-01-12] MEDS: morphine SULFATE 4 MG/ML VIAL IVPUSH PRN (19:39)
[2018-01-12] MEDS: ALBUTEROL SO4 2.5/IPRATROPIUM 0.5 INH SOL 3 ML VIAL.NEB. NEB SCH (21:25)
[2018-01-12] MEDS: PRAMIPEXOLE DIHYDROCHLORIDE 0.25 MG TABLET PO SCH (21:48)
[2018-01-12] MEDS: ROSUVASTATIN CA 10 MG TABLET (FP) PO SCH (21:48)
[2018-01-12] MEDS: APIXABAN 5 MG TABLET PO SCH (21:48)
[2018-01-12] MEDS: BUDESONIDE/FORMETEROL FUMARATE 80/4.5 mcg INHALER IH SCH (21:48)
[2018-01-12] MEDS: PREGABALIN 50 MG CAPSULE PO SCH (21:49)
[2018-01-12] MEDS ORDERED: APIXABAN 5 MG TABLET PO SCH (22:00)
[2018-01-12] MEDS ORDERED: PREGABALIN 100 MG CAPSULE PO SCH (22:00)
[2018-01-12] MEDS ORDERED: PATIENT'S OWN MEDICATION (NON-FORMULARY) (Meloxicam [Mobic] 7.5 MG) PO SCH (22:00)
[2018-01-12] MEDS ORDERED: ACETAMINOPHEN 325 MG TABLET (FP) PO ONE (22:02)
[2018-01-13] MEDS: morphine SULFATE 4 MG/ML VIAL IVPUSH PRN ×5 (00:26→22:32)
[2018-01-13] MEDS: ALBUTEROL SO4 18 GM HFA INHALER IH PRN (01:51)
[2018-01-13] MEDS: LEVOTHYROXINE NA 50 MCG TABLET (FP) PO SCH (06:39)
[2018-01-13] MEDS ORDERED: PT OWN MED DRAWER 7, Y5N ONE ×2 (06:58→09:46)
[2018-01-13 07:25] LABS: BASO % 0.2 % (0-2.0); EOS % 0.1 % (0-4.5); HEMATOCRIT 31.6 % (32.4-45.2); HEMOGLOBIN 10.8 GM/dL (10.7-15.3); MCH 30.3 pg (25.7-33.7); MCHC 34.2 g/dl (32.0-36.0); MEAN CELL VOLUME 88.5 fl (80-96); MEAN PLT VOLUME 8.6 fl (7.5-11.1); MONO % 7.3 % (3.8-10.2); NEUT % 84.4 % (42.8-82.8); PLATELET COUNT 147 K/MM3 (134-434); RBC 3.58 M/mm3 (3.60-5.2); RDW 14.6 % (11.6-15.6); WHITE BLOOD COUNT 10.7 K/mm3 (4.0-10.0)
[2018-01-13 07:56] LABS: CHLORIDE 102 mmol/L (98-107); POTASSIUM 3.9 mmol/L (3.5-5.1); SODIUM 138 mmol/L (136-145)
[2018-01-13 08:05] LABS: ANION GAP 7 (8-16); BLOOD UREA NITROGEN 9 mg/dL (7-18); CO2 29 mmol/L (21-32); CREATININE 0.5 mg/dL (0.55-1.02); GLUCOSE,RANDOM 102 mg/dL (74-106); MAGNESIUM 1.8 mg/dL (1.8-2.4); PHOSPHOROUS 2.6 mg/dL (2.5-4.9)
[2018-01-13] MEDS: ALBUTEROL SO4 2.5/IPRATROPIUM 0.5 INH SOL 3 ML VIAL.NEB. NEB SCH ×3 (08:06→20:47)
[2018-01-13] MEDS ORDERED: oxyCODONE HCL 5 MG TABLET PO PRN (09:44)
[2018-01-13] MEDS ORDERED: cefTRIAXone SODIUM 1 GM VIAL ONE (09:46)
[2018-01-13] MEDS ORDERED: DEXTROSE 5%-WATER - 50 ML IVPB ONE (09:46)
[2018-01-13] MEDS ORDERED: hydrOXYzine HCL 10 MG TABLET PO SCH (10:00)
[2018-01-13] MEDS ORDERED: PATIENT'S OWN MEDICATION (NON-FORMULARY) (Solifenacin Succinate [Vesicare -] 10 MG) PO SCH (10:00)
[2018-01-13] MEDS ORDERED: PATIENT'S OWN MEDICATION (NON-FORMULARY) (Ascorbate Calcium [Vitamin C] 500 MG) PO SCH (10:00)
[2018-01-13] MEDS ORDERED: PATIENT'S OWN MEDICATION (NON-FORMULARY) (Oxybutynin Chloride [Ditropan Xl] 10 MG) PO SCH (10:00)
[2018-01-13] MEDS ORDERED: FERROUS FUMARATE 325 MG PO SCH (10:00)
[2018-01-13] MEDS: LOSARTAN POTASSIUM 50 MG TABLET (FP) PO SCH (10:15)
[2018-01-13] MEDS: FERROUS SO4 325 MG TABLET (FP) PO SCH (10:16)
[2018-01-13] MEDS: APIXABAN 5 MG TABLET PO SCH ×2 (10:16→22:32)
[2018-01-13] MEDS: HYDROCHLOROTHIAZIDE 12.5 MG CAPSULE (FP) PO SCH (10:17)
[2018-01-13] MEDS: PREGABALIN 50 MG CAPSULE PO SCH (10:18)
[2018-01-13] MEDS: PANTOPRAZOLE 40 MG TABLET (FP) PO SCH (10:19)
[2018-01-13] MEDS: PRAMIPEXOLE DIHYDROCHLORIDE 0.25 MG TABLET PO SCH ×2 (10:19→22:32)
[2018-01-13] MEDS: CEFTRIAXONE 1 GM in DEXTROSE 5%-WATER - 50 ML IVPB SCH (10:19)
[2018-01-13] MEDS: BUDESONIDE/FORMETEROL FUMARATE 80/4.5 mcg INHALER IH SCH ×2 (10:21→22:32)
[2018-01-13] MEDS: SOLIFENACIN SUCCINATE 5 MG TAB (FP) PO SCH (10:22)
[2018-01-13] MEDS: ASCORBIC ACID 500 MG TABLET (FP) PO SCH (10:22)
[2018-01-13] MEDS: CYANOCOBALAMIN 1,000 MCG TABLET (FP) PO SCH (10:23)
--- NOTE | 2018-01-13 11:17 | PN ---
Progress Note, Physician Chief Complaint: Pt lying flat in bed in severe pain, reports she is unable to move because of pain, facial grimacing. Report LBP w/ radiation to RLE , 10/10 pins and needles per pt. reports relief with morphine,very minimal relief w/ roxicodone. otherwise, denies chest pain, sob, n/v/d - Current Medication List Current Medications: Active Medications Acetaminophen (Tylenol -) 650 mg PO Q6H PRN PRN Reason: PAIN LEVEL 1-5 Albuterol Sulfate (Ventolin Hfa Inhaler -) 1 puff IH Q6H PRN PRN Reason: ASTHMA Albuterol Sulfate (Ventolin Hfa Inhaler -) 2 puff IH Q6H PRN PRN Reason: ASTHMA Last Admin: 01/13/18 01:51 Dose: 2 puff Albuterol/Ipratropium (Duoneb -) 1 amp NEB RTID [facility] Last Admin: 01/13/18 08:06 Dose: 1 amp Apixaban (Eliquis -) 5 mg PO BID [facility] Last Admin: 01/13/18 10:16 Dose: 5 mg Ascorbic Acid (Vitamin C -) 500 mg PO DAILY [facility] Last Admin: 01/13/18 10:22 Dose: 500 mg Budesonide/Formoterol Fumarate (Symbicort 80/4.5mcg -) 2 puff IH BID [facility] Last Admin: 01/13/18 10:21 Dose: 2 puff Cyanocobalamin (Vitamin B12 -) 2,500 mcg PO DAILY [facility] Last Admin: 01/13/18 10:23 Dose: 2,500 mcg Ferrous Sulfate (Feosol -) 325 mg PO DAILY [facility] Last Admin: 01/13/18 10:16 Dose: 325 mg Hydrochlorothiazide (Hctz -) 12.5 mg PO DAILY [facility] Last Admin: 01/13/18 10:17 Dose: 12.5 mg Ceftriaxone Sodium 1 gm/ (Dextrose) 50 mls @ 100 mls/hr IVPB DAILY [facility] PRN Reason: Protocol Last Admin: 01/13/18 10:19 Dose: 100 mls/hr Levothyroxine Sodium (Synthroid -) 50 mcg PO ACBK [facility] Last Admin: 01/13/18 06:39 Dose: 50 mcg Losartan Potassium (Cozaar -) 50 mg PO DAILY [facility] Last Admin: 01/13/18 10:15 Dose: 50 mg Metoprolol Succinate (Toprol Xl -) 50 mg PO DAILY [facility] Last Admin: 01/13/18 10:24 Dose: 50 mg Oxycodone HCl (Roxicodone -) 5 mg PO Q6H PRN PRN Reason: PAIN LEVEL 6-10 Last Admin: 01/13/18 10:27 Dose: 5 mg Pantoprazole Sodium (Protonix -) 40 mg PO DAILY [facility] Last Admin: 01/13/18 10:19 Dose: 40 mg Pramipexole Dihydrochloride (Mirapex -) 0.25 mg PO BID [facility] Last Admin: 01/13/18 10:19 Dose: 0.25 mg Pregabalin (Lyrica -) 100 mg PO BID [facility] Last Admin: 01/13/18 10:18 Dose: 100 mg Rosuvastatin Calcium (Crestor -) 10 mg PO HS [facility] Last Admin: 01/12/18 21:48 Dose: 10 mg Solifenacin (Vesicare -) 10 mg PO DAILY [facility] Last Admin: 01/13/18 10:22 Dose: 10 mg - Objective Vital Signs: Vital Signs Temperature 98.8 F 01/13/18 06:19 Pulse Rate 93 H 01/13/18 06:19 Respiratory Rate 20 01/13/18 06:19 Blood Pressure 134/67 01/13/18 06:19 O2 Sat by Pulse Oximetry (%) 94 L 01/12/18 21:00 Constitutional: Yes: Well Nourished, Mild Distress Cardiovascular: Yes: Regular Rate and Rhythm, Murmur. No: Tachycardia, Rub Respiratory: Yes: WNL, Regular, CTA Bilaterally. No: Accessory Muscle Use, Rales, SOB, Tachypnea Gastrointestinal: Yes: WNL, Normal Bowel Sounds, Soft, Abdomen, Obese. No: Distention, Tenderness Genitourinary: Yes: WNL. No: Bladder Distention, CVA Tenderness - Left, CVA Tenderness - Right Musculoskeletal: Yes: Back Pain Extremities: Yes: WNL Edema: Yes Edema: LLE: Trace, RLE: Trace Neurological: Yes: Alert, Oriented Psychiatric: Yes: WNL, Alert, Oriented Labs: CBC, BMP 01/13/18 06:00 01/13/18 06:00 Problem List - Problems (1) UTI (urinary tract infection) Code(s): N39.0 - URINARY TRACT INFECTION, SITE NOT SPECIFIED Qualifiers: Urinary tract infection type: site unspecified Hematuria presence: with hematuria Qualified Code(s): N39.0 - Urinary tract infection, site not specified; R31.9 - Hematuria, unspecified; R31.9 - Hematuria, unspecified (2) Leukocytosis Code(s): D72.829 - ELEVATED WHITE BLOOD CELL COUNT, UNSPECIFIED (3) Fall Code(s): W19.XXXA - UNSPECIFIED FALL, INITIAL ENCOUNTER (4) Low back pain Code(s): M54.5 - LOW BACK PAIN Qualifiers: Chronicity: acute Back pain laterality: bilateral (5) HLD (hyperlipidemia) Code(s): E78.5 - HYPERLIPIDEMIA, UNSPECIFIED (6) HTN (hypertension) Code(s): I10 - ESSENTIAL (PRIMARY) HYPERTENSION Qualifiers: Hypertension type: essential hypertension Qualified Code(s): I10 - Essential (primary) hypertension (7) Hypothyroid Code(s): E03.9 - HYPOTHYROIDISM, UNSPECIFIED (8) Afib Code(s): I48.91 - UNSPECIFIED ATRIAL FIBRILLATION Qualifiers: Atrial fibrillation type: chronic Qualified Code(s): I48.2 - Chronic atrial fibrillation (9) CAD (coronary artery disease) Code(s): I25.10 - ATHSCL HEART DISEASE OF [place] CORONARY ARTERY W/O ANG PCTRS (10) COPD (chronic obstructive pulmonary disease) Code(s): J44.9 - CHRONIC OBSTRUCTIVE PULMONARY DISEASE, UNSPECIFIED (11) Osteoarthritis Code(s): M19.90 - UNSPECIFIED OSTEOARTHRITIS, UNSPECIFIED SITE Qualifiers: Osteoarthritis location: spine Spinal region: cervical (12) History of breast cancer Code(s): Z85.3 - PERSONAL HISTORY OF MALIGNANT NEOPLASM OF BREAST Assessment/Plan (1) UTI (urinary tract infection) Assessment/Plan: UA+, +leuk es, +nitrite febrile overnight UC w/ gram neg bacilli ceftriaxone day 2 will monitor Code(s): N39.0 - URINARY TRACT INFECTION, SITE NOT SPECIFIED Qualifiers: Urinary tract infection type: site unspecified Hematuria presence: with hematuria Qualified Code(s): N39.0 - Urinary tract infection, site not specified; R31.9 - Hematuria, unspecified; R31.9 - Hematuria, unspecified (2) Leukocytosis Assessment/Plan: secondary to UTI trending down plan as above Code(s): D72.829 - ELEVATED WHITE BLOOD CELL COUNT, UNSPECIFIED (3) Fall Assessment/Plan: s/p fall w/out loc/head trauma 2 weeks ago, mechanical coccyx/lumbar/thoracic xrays without acute fracture fall precautions Code(s): W19.XXXA - UNSPECIFIED FALL, INITIAL ENCOUNTER (4) Low back pain Assessment/Plan: worsening low back pain w/ radiation to RLE lumbar CT without acute findings tylenol/ morphine PT neuro consulted considering persistent pain pain management consulted Code(s): M54.5 - LOW BACK PAIN Qualifiers: Chronicity: acute Back pain laterality: bilateral (5) HLD (hyperlipidemia) Assessment/Plan: chronic continue crestor Code(s): E78.5 - HYPERLIPIDEMIA, UNSPECIFIED (6) HTN (hypertension) Assessment/Plan: controlled continue hct/metoprolol Code(s): I10 - ESSENTIAL (PRIMARY) HYPERTENSION Qualifiers: Hypertension type: essential hypertension Qualified Code(s): I10 - Essential (primary) hypertension (7) Hypothyroid Assessment/Plan: chronic continue levothyroxine Code(s): E03.9 - HYPOTHYROIDISM, UNSPECIFIED (8) Afib Assessment/Plan: in SR now continue metoprolol/ eliquis Code(s): I48.91 - UNSPECIFIED ATRIAL FIBRILLATION Qualifiers: Atrial fibrillation type: chronic Qualified Code(s): I48.2 - Chronic atrial fibrillation (9) CAD (coronary artery disease) Assessment/Plan: stable continue statin Code(s): I25.10 - ATHSCL HEART DISEASE OF [place] CORONARY ARTERY W/O ANG PCTRS (10) COPD (chronic obstructive pulmonary disease) Assessment/Plan: chronic continue current management Code(s): J44.9 - CHRONIC OBSTRUCTIVE PULMONARY DISEASE, UNSPECIFIED (11) Osteoarthritis Assessment/Plan: chronic Tylenol PT Code(s): M19.90 - UNSPECIFIED OSTEOARTHRITIS, UNSPECIFIED SITE Qualifiers: Osteoarthritis location: spine Spinal region: cervical (12) History of breast cancer Assessment/Plan: s/p chemp, xrt, left partial mastectomy Code(s): Z85.3 - PERSONAL HISTORY OF MALIGNANT NEOPLASM OF BREAST
--- NOTE | 2018-01-13 14:51 | CONSULT ---
Consult - text type - Consultation Consultation Note: Neurology History of Present Illness: 77 year old female here for worsening low back pain radiating to lower extremities and inability to ambulate at home. She reported b/l lower extremity pain for past several days but for last 3-4 weeks has discomfort in her feet radiating up to her back. She also states she has ongoing low back pain and is uncomfortable appearing in bed, holding on rails on sides. She states she is not able to ambulate. She has been on Lyrica and ordered for 100mg twice daily. CT L spine completed with chronic arthritic changes noted as well as antherolisthesis. She describes the pain as sharp, pins and needles. [facility] Is getting pain medication here and Dr. Castellanos consulted for futher pain mgmt. Discussed with her adjusting Lyrica and will make it slightly less strength but increase frequency to three times a day. Additionally, will check MRI L spine, ordered to evaluate for further structural abnormalities. 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 Cardiovascular: Yes: AFIB, CAD, HTN, Hyperlipdemia Pulmonary: Yes: Asthma, COPD Gastrointestinal: Yes: GERD Reproductive: Yes: Other (breast CA) Heme/Onc: Yes: Anemia Endocrine: Yes: Hypothyroidism Additional Past Medical History: Breast CA - Past Surgical History Past Surgical History: Yes: Joint Replacement (left hip, TKR right), Mastectomy (Left) Additional Past Surgical History: Urethral Sling procedure, bladder suspension surgery - Smoking History Smoking history: Never smoked Have you smoked in the past 12 months: No Aproximately how many cigarettes per day: 0 - Alcohol/Substance Use Hx Alcohol Use: No - Social History Usual Living Arrangement: Yes: With Child History of Recent Travel: No Home Medications - Allergies Allergies/Adverse Reactions: Allergies Allergy/AdvReac Type Severity Reaction Status Date / Time No Known Drug Allergies Allergy Verified 01/12/18 11:07 - Home Medications Home Medications: Ambulatory Orders Alendronate Sodium 70 mg PO UTDICT 10/16/11 Ferrous Fumarate [Iron] 325 mg PO DAILY 10/16/11 Levothyroxine [Synthroid -] 50 mcg PO DAILY 10/16/11 Metoprolol "Xl" (Sustain Act) [Toprol Xl] 50 mg PO DAILY 10/16/11 Hydrochlorothiazide [Hctz -] 12.5 mg PO DAILY 12/31/13 Rosuvastatin [Crestor -] 10 mg PO HS #0 01/06/14 Cyanocobalamin [Vitamin B12 -] 2,500 mcg PO DAILY 06/07/14 Losartan Potassium 50 mg PO DAILY 06/07/14 Pantoprazole Sodium [Protonix] 40 mg PO DAILY 06/07/14 Pramipexole Di-HCl [Mirapex] 0.25 mg PO BID 06/07/14 Oxybutynin Chloride [Ditropan Xl] 10 mg PO DAILY 07/05/16 Albuterol Sulfate [Proventil HFA Inhaler -] 1 - 2 inh PO QID PRN 11/18/17 Apixaban [Eliquis] 5 mg PO BID 11/18/17 Ascorbate Calcium [Vitamin C] 500 mg PO DAILY 11/18/17 Pregabalin [Lyrica] 100 mg PO BID 11/18/17 Solifenacin Succinate [Vesicare -] 10 mg PO DAILY 11/18/17 Hydrocodone/Acetaminophen [[place] 5-325 Tablet] 1 each PO Q6H PRN #40 tablet MDD 4 11/19/17 Albuterol 2.5/Ipratropium 0.5 [Duoneb -] 1 amp NEB RTID #0 amp 11/21/17 Budesonide/Formeterol Fumarate [SYMBICORT 80/4.5mcg -] 2 puff IH BID inhaler oxyCODONE HCL [Roxicodone -] 5 mg PO Q4H PRN tablet MDD 60mg 11/21/17 Family Disease History - Family Disease History Family History: Denies Review of Systems - Review of Systems Comments:: 01/12/18 12:02 GENERAL/CONSTITUTIONAL: No fever or chills. No weakness. HEAD, EYES, EARS, NOSE AND THROAT: No change in vision. No ear pain or discharge. No sore throat. CARDIOVASCULAR: No chest pain or shortness of breath RESPIRATORY: No cough, wheezing, or hemoptysis. GASTROINTESTINAL: No nausea, vomiting, diarrhea or constipation. GENITOURINARY: No dysuria, frequency, or change in urination. MUSCULOSKELETAL: +Back pain as described with RLE parasthesias. Patient also reporting right shoulder pain. SKIN: No rash NEUROLOGIC: No headache, vertigo, loss of consciousness, or change in strength/ sensation. ENDOCRINE: No increased thirst. No abnormal weight change HEMATOLOGIC/LYMPHATIC: No anemia, easy bleeding, or history of blood clots. ALLERGIC/IMMUNOLOGIC: No hives or skin allergy. *Physical Exam Vital Signs Period Temp Pulse Resp BP Sys/Bocanegra Pulse Ox Last 24 Hr 97.7 F-100.1 F 70-93 18-20 113-134/52-67 94-97 GENERAL: +Patient acutely in pain. Awake, alert, and fully oriented HEAD: No signs of trauma, normocephalic, atraumatic EYES: PERRLA, EOMI, sclera anicteric, conjunctiva clear ENT: Auricles normal inspection, hearing grossly normal, nares patent, oropharynx clear without exudates. Moist mucosa NECK: Normal ROM, supple, no lymphadenopathy, JVD, or masses LUNGS: No distress, speaks full sentences, clear to auscultation bilaterally HEART: Regular rate and rhythm, normal S1 and S2, no murmurs, rubs or gallops, peripheral pulses normal and equal bilaterally. ABDOMEN: Soft, nontender, normoactive bowel sounds. No guarding, no rebound. No masses EXTREMITIES: +Patient acutely tender across lower back bilaterally. Strength intact. Normal inspection, Normal range of motion, no edema. No clubbing or cyanosis. NEUROLOGICAL: Cranial nerves II through XII grossly intact. Raising RLE to gravity and resistence 4+/5, LLE limited by pain 3-/5, sensation intact to LT, gait deferred SKIN: Warm, Dry, normal turgor, no rashes or lesions noted. CBCD WBC 10.7 K/mm3 (4.0-10.0) H 01/13/18 06:00 RBC 3.58 M/mm3 (3.60-5.2) L 01/13/18 06:00 Hgb 10.8 GM/dL (10.7-15.3) 01/13/18 06:00 Hct 31.6 % (32.4-45.2) L 01/13/18 06:00 MCV 88.5 fl (80-96) 01/13/18 06:00 MCHC 34.2 g/dl (32.0-36.0) 01/13/18 06:00 RDW 14.6 % (11.6-15.6) 01/13/18 06:00 Plt Count 147 K/MM3 (134-434) 01/13/18 06:00 MPV 8.6 fl (7.5-11.1) 01/13/18 06:00 CMP Sodium 138 mmol/L (136-145) 01/13/18 06:00 Potassium 3.9 mmol/L (3.5-5.1) 01/13/18 06:00 Chloride 102 mmol/L (98-107) 01/13/18 06:00 Carbon Dioxide 29 mmol/L (21-32) 01/13/18 06:00 Anion Gap 7 (8-16) L 01/13/18 06:00 BUN 9 mg/dL (7-18) 01/13/18 06:00 Creatinine 0.5 mg/dL (0.55-1.02) L 01/13/18 06:00 Creat Clearance w eGFR > 60 (>60) 01/12/18 11:39 Random Glucose 102 mg/dL (74-106) 01/13/18 06:00 Calcium 8.0 mg/dL (8.5-10.1) L 01/13/18 06:00 Total Bilirubin 0.7 mg/dL (0.2-1.0) D 01/12/18 11:39 AST 22 U/L (15-37) 01/12/18 11:39 ALT 15 U/L (12-78) 01/12/18 11:39 Alkaline Phosphatase 59 U/L (45-117) 01/12/18 11:39 Total Protein 6.3 g/dl (6.4-8.2) L 01/12/18 11:39 Albumin 2.9 g/dl (3.4-5.0) L 01/12/18 11:39 Imaging - Results Chest X-ray: Report Reviewed X-ray: Report Reviewed Cat Scan: Report Reviewed EKG: Report Reviewed Plan 77 year old female here for worsening low back pain radiating to lower extremities and inability to ambulate at home. She reported b/l lower extremity pain for past several days but for last 3-4 weeks has discomfort in her feet radiating up to her back. She also states she has ongoing low back pain and is uncomfortable appearing in bed, holding on rails on sides. She states she is not able to ambulate. She has been on Lyrica and ordered for 100mg twice daily. CT L spine completed with chronic arthritic changes noted as well as antherolisthesis. [facility] Agree with pain medication here and Dr. Castellanos consulted for futher pain mgmt. Adjusted Lyrica to slightly less strength but increase frequency to three times a day, 75mg but three times per day Will monitor and if not improved, can consider 100mg three times per day Additionally, will check MRI L spine, ordered to evaluate for further structural abnormalities Physical therapy as tolerated Fall precautions Continue treatment of UTI, on IV Abx Hydration recommended
[2018-01-13] MEDS: SODIUM CHLORIDE 1,000 ML IV SCH (17:16)
[2018-01-13] MEDS: ACETAMINOPHEN 325 MG TABLET (FP) PO PRN (18:15)
[2018-01-13] MEDS: ROSUVASTATIN CA 10 MG TABLET (FP) PO SCH (22:31)
[2018-01-13] MEDS: PREGABALIN 75 MG CAPSULE PO SCH (22:31)
[2018-01-14] MEDS: morphine SULFATE 4 MG/ML VIAL IVPUSH PRN ×4 (05:01→22:51)
[2018-01-14] MEDS: ALBUTEROL SO4 18 GM HFA INHALER IH PRN (05:41)
[2018-01-14] MEDS: PREGABALIN 75 MG CAPSULE PO SCH ×3 (06:45→22:46)
[2018-01-14] MEDS: LEVOTHYROXINE NA 50 MCG TABLET (FP) PO SCH (06:45)
[2018-01-14] MEDS: ACETAMINOPHEN 325 MG TABLET (FP) PO PRN ×2 (06:45→23:36)
[2018-01-14] MEDS ORDERED: PT OWN MED DRAWER 7, Y5N ONE ×3 (06:51→20:33)
[2018-01-14] MEDS: ALBUTEROL SO4 2.5/IPRATROPIUM 0.5 INH SOL 3 ML VIAL.NEB. NEB SCH ×3 (07:35→20:44)
--- NOTE | 2018-01-14 07:56 | CONSULT ---
Consult Consult Specialty:: pain medicine Referred by:: meri Reason for Consultation:: back pain - History of Present Illness Chief Complaint: back pain History of Present Illness: 77 year old female here for worsening low back pain radiating to lower extremities and inability to ambulate at home. She reported b/l lower extremity pain for past several days but for last 3-4 weeks has discomfort in her feet radiating up to her back. 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: Yes: Peripheral Neuropathy, TIA Cardio/Vascular: Yes: AFIB, CAD, HTN, Hyperlipdemia Pulmonary: Yes: Asthma, COPD Gastrointestinal: Yes: GERD Endocrine: Yes: Hypothyroidism - Past Surgical History Past Surgical History: Yes: Joint Replacement (left hip, TKR right), Mastectomy (Left) - Alcohol/Substance Use Hx Alcohol Use: No - Smoking History Smoking history: Never smoked Have you smoked in the past 12 months: No Aproximately how many cigarettes per day: 0 - Social History History of Recent Travel: No Home Medications - Allergies Allergies/Adverse Reactions: Allergies Allergy/AdvReac Type Severity Reaction Status Date / Time No Known Drug Allergies Allergy Verified 01/12/18 11:07 - Home Medications Home Medications: Ambulatory Orders Alendronate Sodium 70 mg PO UTDICT 10/16/11 Ferrous Fumarate [Iron] 325 mg PO DAILY 10/16/11 Levothyroxine [Synthroid -] 50 mcg PO DAILY 10/16/11 Metoprolol "Xl" (Sustain Act) [Toprol Xl] 50 mg PO DAILY 10/16/11 Hydrochlorothiazide [Hctz -] 12.5 mg PO DAILY 12/31/13 Rosuvastatin [Crestor -] 10 mg PO HS #0 01/06/14 Cyanocobalamin [Vitamin B12 -] 2,500 mcg PO DAILY 06/07/14 Losartan Potassium 50 mg PO DAILY 06/07/14 Pantoprazole Sodium [Protonix] 40 mg PO DAILY 06/07/14 Pramipexole Di-HCl [Mirapex] 0.25 mg PO BID 06/07/14 Oxybutynin Chloride [Ditropan Xl] 10 mg PO DAILY 07/05/16 Albuterol Sulfate [Proventil HFA Inhaler -] 1 - 2 inh PO QID PRN 11/18/17 Apixaban [Eliquis] 5 mg PO BID 11/18/17 Ascorbate Calcium [Vitamin C] 500 mg PO DAILY 11/18/17 Pregabalin [Lyrica] 100 mg PO BID 11/18/17 Solifenacin Succinate [Vesicare -] 10 mg PO DAILY 11/18/17 Hydrocodone/Acetaminophen [[place] 5-325 Tablet] 1 each PO Q6H PRN #40 tablet MDD 4 11/19/17 Albuterol 2.5/Ipratropium 0.5 [Duoneb -] 1 amp NEB RTID #0 amp 11/21/17 Budesonide/Formeterol Fumarate [SYMBICORT 80/4.5mcg -] 2 puff IH BID inhaler oxyCODONE HCL [Roxicodone -] 5 mg PO Q4H PRN tablet MDD 60mg 11/21/17 Physical Exam Vital Signs: Vital Signs Temperature 99.9 F H 01/14/18 05:48 Pulse Rate 89 01/14/18 05:48 Respiratory Rate 20 01/14/18 05:48 Blood Pressure 123/66 01/14/18 05:48 O2 Sat by Pulse Oximetry (%) 98 01/13/18 21:00 Musculoskeletal: Yes: Back Pain (severe bilateral lowre back pain and radiates down both legs), Other Assessment/Plan Lumbar radiculopathy 1. Awaiting MRI lumbar spine 2. Will follow up after MRI 3. Continue current medications as per Dr Olvera 4. Physical therapy as tolerated
[2018-01-14 09:03] LABS: BASO % 0.1 % (0-2.0); EOS % 0.2 % (0-4.5); HEMATOCRIT 30.8 % (32.4-45.2); HEMOGLOBIN 10.6 GM/dL (10.7-15.3); LYMPH % 8.4 % (8-40); MCH 30.6 pg (25.7-33.7); MCHC 34.4 g/dl (32.0-36.0); MEAN CELL VOLUME 88.8 fl (80-96); MEAN PLT VOLUME 8.9 fl (7.5-11.1); MONO % 8.2 % (3.8-10.2); NEUT % 83.1 % (42.8-82.8); PLATELET COUNT 157 K/MM3 (134-434); RBC 3.47 M/mm3 (3.60-5.2); RDW 14.5 % (11.6-15.6); WHITE BLOOD COUNT 9.5 K/mm3 (4.0-10.0)
[2018-01-14] MEDS ORDERED: cefTRIAXone SODIUM 1 GM VIAL ONE (09:13)
[2018-01-14] MEDS ORDERED: DEXTROSE 5%-WATER - 50 ML IVPB ONE (09:13)
[2018-01-14] MEDS: CEFTRIAXONE 1 GM in DEXTROSE 5%-WATER - 50 ML IVPB SCH (09:15)
[2018-01-14] MEDS: BUDESONIDE/FORMETEROL FUMARATE 80/4.5 mcg INHALER IH SCH ×2 (09:21→22:48)
[2018-01-14] MEDS: CYANOCOBALAMIN 1,000 MCG TABLET (FP) PO SCH (09:22)
[2018-01-14] MEDS: ASCORBIC ACID 500 MG TABLET (FP) PO SCH (09:23)
[2018-01-14] MEDS: LOSARTAN POTASSIUM 50 MG TABLET (FP) PO SCH (09:23)
[2018-01-14] MEDS: HYDROCHLOROTHIAZIDE 12.5 MG CAPSULE (FP) PO SCH (09:23)
[2018-01-14] MEDS: FERROUS SO4 325 MG TABLET (FP) PO SCH (09:23)
[2018-01-14] MEDS: PANTOPRAZOLE 40 MG TABLET (FP) PO SCH (09:23)
[2018-01-14] MEDS: APIXABAN 5 MG TABLET PO SCH ×2 (09:23→22:47)
[2018-01-14] MEDS: SOLIFENACIN SUCCINATE 5 MG TAB (FP) PO SCH (09:24)
[2018-01-14] MEDS: PRAMIPEXOLE DIHYDROCHLORIDE 0.25 MG TABLET PO SCH ×2 (09:24→22:47)
--- NOTE | 2018-01-14 09:27 | PN ---
Progress Note (short form) - Note Progress Note: Neurology History of Present Illness: 77 year old female here for worsening low back pain radiating to lower extremities and inability to ambulate at home. She reported b/l lower extremity pain for past several days but for last 3-4 weeks has discomfort in her feet radiating up to her back. She also states she has ongoing low back pain and is uncomfortable appearing in bed, holding on rails on sides. She states she is not able to ambulate. She has been on Lyrica and ordered for 100mg twice daily. CT L spine completed with chronic arthritic changes noted as well as antherolisthesis. She describes the pain as sharp, pins and needles. Reportedly with recent fall at long-term. Is getting pain medication here and Dr[facility]anos [facility], note reviewed, recommended medication course as I had suggested. Lyrica increased to 75mg three times a day. No significant improvement overnight. MRI L spine ordered, awaiting completion. She is also on Morphine sulfate 2mg IV PRN. Active Medications Acetaminophen (Tylenol -) 650 mg PO Q6H PRN PRN Reason: PAIN LEVEL 1-5 Last Admin: 01/14/18 06:45 Dose: 650 mg Albuterol Sulfate (Ventolin Hfa Inhaler -) 1 puff IH Q6H PRN PRN Reason: ASTHMA Albuterol Sulfate (Ventolin Hfa Inhaler -) 2 puff IH Q6H PRN PRN Reason: ASTHMA Last Admin: 01/14/18 05:41 Dose: 2 puff Albuterol/Ipratropium (Duoneb -) 1 amp NEB RTID [facility] Last Admin: 01/14/18 07:35 Dose: 1 amp Apixaban (Eliquis -) 5 mg PO BID [facility] Last Admin: 01/14/18 09:23 Dose: 5 mg Ascorbic Acid (Vitamin C -) 500 mg PO DAILY [facility] Last Admin: 01/14/18 09:23 Dose: 500 mg Budesonide/Formoterol Fumarate (Symbicort 80/4.5mcg -) 2 puff IH BID [facility] Last Admin: 01/14/18 09:21 Dose: 2 puff Cyanocobalamin (Vitamin B12 -) 2,500 mcg PO DAILY [facility] Last Admin: 01/14/18 09:22 Dose: 2,500 mcg Ferrous Sulfate (Feosol -) 325 mg PO DAILY [facility] Last Admin: 01/14/18 09:23 Dose: 325 mg Hydrochlorothiazide (Hctz -) 12.5 mg PO DAILY [facility] Last Admin: 01/14/18 09:23 Dose: 12.5 mg Ceftriaxone Sodium 1 gm/ (Dextrose) 50 mls @ 100 mls/hr IVPB DAILY [facility] PRN Reason: Protocol Last Admin: 01/14/18 09:15 Dose: 100 mls/hr Sodium Chloride (Normal Saline -) 1,000 mls @ 50 mls/hr IV ASDIR [facility] Last Admin: 01/13/18 17:16 Dose: 50 mls/hr Levothyroxine Sodium (Synthroid -) 50 mcg PO ACBK [facility] Last Admin: 01/14/18 06:45 Dose: 50 mcg Losartan Potassium (Cozaar -) 50 mg PO DAILY [facility] Last Admin: 01/14/18 09:23 Dose: 50 mg Metoprolol Succinate (Toprol Xl -) 50 mg PO DAILY [facility] Last Admin: 01/14/18 09:23 Dose: 50 mg Morphine Sulfate (Morphine Sulfate) 2 mg IVPUSH Q4H PRN PRN Reason: PAIN LEVEL 6-10 Last Admin: 01/14/18 09:15 Dose: 2 mg Pantoprazole Sodium (Protonix -) 40 mg PO DAILY [facility] Last Admin: 01/14/18 09:23 Dose: 40 mg Pramipexole Dihydrochloride (Mirapex -) 0.25 mg PO BID [facility] Last Admin: 01/14/18 09:24 Dose: 0.25 mg Pregabalin (Lyrica -) 75 mg PO TID [facility] Last Admin: 01/14/18 06:45 Dose: 75 mg Rosuvastatin Calcium (Crestor -) 10 mg PO HS [facility] Last Admin: 01/13/18 22:31 Dose: 10 mg Solifenacin (Vesicare -) 10 mg PO DAILY [facility] Last Admin: 01/14/18 09:24 Dose: 10 mg *Physical Exam Vital Signs Period Temp Pulse Resp BP Sys/Bocanegra Pulse Ox Last 24 Hr 98.1 F-100.7 F 69-100 20-22 94-123/48-69 98 GENERAL: +Patient acutely in pain. Awake, alert, and fully oriented HEAD: No signs of trauma, normocephalic, atraumatic EYES: PERRLA, EOMI, sclera anicteric, conjunctiva clear ENT: Auricles normal inspection, hearing grossly normal, nares patent, oropharynx clear without exudates. Moist mucosa NECK: Normal ROM, supple, no lymphadenopathy, JVD, or masses LUNGS: No distress, speaks full sentences, clear to auscultation bilaterally HEART: Regular rate and rhythm, normal S1 and S2, no murmurs, rubs or gallops, peripheral pulses normal and equal bilaterally. ABDOMEN: Soft, nontender, normoactive bowel sounds. No guarding, no rebound. No masses EXTREMITIES: +Patient acutely tender across lower back bilaterally. Strength intact. Normal inspection, Normal range of motion, no edema. No clubbing or cyanosis. NEUROLOGICAL: Cranial nerves II through XII grossly intact. Raising RLE to gravity and resistence 4+/5, LLE limited by pain 3-/5, sensation intact to LT, gait deferred SKIN: Warm, Dry, normal turgor, no rashes or lesions noted. CBCD WBC 9.5 K/mm3 (4.0-10.0) 01/14/18 06:00 RBC 3.47 M/mm3 (3.60-5.2) L 01/14/18 06:00 Hgb 10.6 GM/dL (10.7-15.3) L 01/14/18 06:00 Hct 30.8 % (32.4-45.2) L 01/14/18 06:00 MCV 88.8 fl (80-96) 01/14/18 06:00 MCHC 34.4 g/dl (32.0-36.0) 01/14/18 06:00 RDW 14.5 % (11.6-15.6) 01/14/18 06:00 Plt Count 157 K/MM3 (134-434) 01/14/18 06:00 MPV 8.9 fl (7.5-11.1) 01/14/18 06:00 CMP Sodium 138 mmol/L (136-145) 01/13/18 06:00 Potassium 3.9 mmol/L (3.5-5.1) 01/13/18 06:00 Chloride 102 mmol/L (98-107) 01/13/18 06:00 Carbon Dioxide 29 mmol/L (21-32) 01/13/18 06:00 Anion Gap 7 (8-16) L 01/13/18 06:00 BUN 9 mg/dL (7-18) 01/13/18 06:00 Creatinine 0.5 mg/dL (0.55-1.02) L 01/13/18 06:00 Creat Clearance w eGFR > 60 (>60) 01/12/18 11:39 Calcium 8.0 mg/dL (8.5-10.1) L 01/13/18 06:00 Total Bilirubin 0.7 mg/dL (0.2-1.0) D 01/12/18 11:39 AST 22 U/L (15-37) 01/12/18 11:39 ALT 15 U/L (12-78) 01/12/18 11:39 Alkaline Phosphatase 59 U/L (45-117) 01/12/18 11:39 Total Protein 6.3 g/dl (6.4-8.2) L 01/12/18 11:39 Albumin 2.9 g/dl (3.4-5.0) L 01/12/18 11:39 Imaging - Results Chest X-ray: Report Reviewed X-ray: Report Reviewed Cat Scan: Report Reviewed EKG: Report Reviewed Plan 77 year old female here for worsening low back pain radiating to lower extremities and inability to ambulate at home. She reported b/l lower extremity pain for past several days but for last 3-4 weeks has discomfort in her feet radiating up to her back. She also states she has ongoing low back pain and is uncomfortable appearing in bed, holding on rails on sides. She states she is not able to ambulate. She has been on Lyrica and ordered for 100mg twice daily. CT L spine completed with chronic arthritic changes noted as well as antherolisthesis. Reportedly with recent fall at long-term. Agree with pain medication here and Dr. Castellanos consulted for futher pain mgmt agreed with medication, recommended MRI L spine as well MRI L spine ordered, awaiting completion Adjusted Lyrica to slightly less strength but increase frequency to three times a day, 75mg but three times per day Will monitor and if not improved, can consider 100mg three times per day Also on morphine 2mg IV, Q4hrs PRN, will need to cautious with medications Physical therapy as tolerated Dr. Castellanos to follow up after MRI Fall precautions Continue treatment of UTI, on IV Abx Hydration recommended
[2018-01-14 09:52] LABS: ANION GAP 7 (8-16); BLOOD UREA NITROGEN 10 mg/dL (7-18); CALCIUM 7.9 mg/dL (8.5-10.1); CHLORIDE 99 mmol/L (98-107); CO2 29 mmol/L (21-32); CREATININE 0.4 mg/dL (0.55-1.02); GLUCOSE,RANDOM 97 mg/dL (74-106); SODIUM 135 mmol/L (136-145)
--- NOTE | 2018-01-14 10:31 | PN ---
Progress Note, Physician Chief Complaint: Pt lying flat in bed in no acute distress. Report LBP w/ radiation to LEs , pins and needles per pt. reports relief with morphine. otherwise, denies chest pain, sob, n/v/d - Current Medication List Current Medications: Active Medications Acetaminophen (Tylenol -) 650 mg PO Q6H PRN PRN Reason: PAIN LEVEL 1-5 Last Admin: 01/14/18 06:45 Dose: 650 mg Albuterol Sulfate (Ventolin Hfa Inhaler -) 1 puff IH Q6H PRN PRN Reason: ASTHMA Albuterol Sulfate (Ventolin Hfa Inhaler -) 2 puff IH Q6H PRN PRN Reason: ASTHMA Last Admin: 01/14/18 05:41 Dose: 2 puff Albuterol/Ipratropium (Duoneb -) 1 amp NEB RTID [facility] Last Admin: 01/14/18 07:35 Dose: 1 amp Apixaban (Eliquis -) 5 mg PO BID [facility] Last Admin: 01/14/18 09:23 Dose: 5 mg Ascorbic Acid (Vitamin C -) 500 mg PO DAILY [facility] Last Admin: 01/14/18 09:23 Dose: 500 mg Budesonide/Formoterol Fumarate (Symbicort 80/4.5mcg -) 2 puff IH BID [facility] Last Admin: 01/14/18 09:21 Dose: 2 puff Cyanocobalamin (Vitamin B12 -) 2,500 mcg PO DAILY [facility] Last Admin: 01/14/18 09:22 Dose: 2,500 mcg Docusate Sodium (Colace -) 100 mg PO TID [facility] Ferrous Sulfate (Feosol -) 325 mg PO DAILY [facility] Last Admin: 01/14/18 09:23 Dose: 325 mg Hydrochlorothiazide (Hctz -) 12.5 mg PO DAILY [facility] Last Admin: 01/14/18 09:23 Dose: 12.5 mg Ceftriaxone Sodium 1 gm/ (Dextrose) 50 mls @ 100 mls/hr IVPB DAILY [facility] PRN Reason: Protocol Last Admin: 01/14/18 09:15 Dose: 100 mls/hr Sodium Chloride (Normal Saline -) 1,000 mls @ 50 mls/hr IV ASDIR [facility] Last Admin: 01/13/18 17:16 Dose: 50 mls/hr Levothyroxine Sodium (Synthroid -) 50 mcg PO ACBK [facility] Last Admin: 01/14/18 06:45 Dose: 50 mcg Losartan Potassium (Cozaar -) 50 mg PO DAILY [facility] Last Admin: 01/14/18 09:23 Dose: 50 mg Metoprolol Succinate (Toprol Xl -) 50 mg PO DAILY [facility] Last Admin: 01/14/18 09:23 Dose: 50 mg Morphine Sulfate (Morphine Sulfate) 2 mg IVPUSH Q4H PRN PRN Reason: PAIN LEVEL 6-10 Last Admin: 01/14/18 09:15 Dose: 2 mg Morphine Sulfate (Morphine Injection -) 2 mg IVPUSH ONCE ONE Stop: 01/14/18 10:23 Pantoprazole Sodium (Protonix -) 40 mg PO DAILY [facility] Last Admin: 01/14/18 09:23 Dose: 40 mg Polyethylene Glycol (Miralax (For Daily Use) -) 17 gm PO BID [facility] Pramipexole Dihydrochloride (Mirapex -) 0.25 mg PO BID [facility] Last Admin: 01/14/18 09:24 Dose: 0.25 mg Pregabalin (Lyrica -) 75 mg PO TID [facility] Last Admin: 01/14/18 06:45 Dose: 75 mg Rosuvastatin Calcium (Crestor -) 10 mg PO HS [facility] Last Admin: 01/13/18 22:31 Dose: 10 mg Senna (Senna -) 2 tab PO [facility] Solifenacin (Vesicare -) 10 mg PO DAILY [facility] Last Admin: 01/14/18 09:24 Dose: 10 mg - Objective Vital Signs: Vital Signs Temperature 98.2 F 01/14/18 09:10 Pulse Rate 89 01/14/18 09:10 Respiratory Rate 18 01/14/18 09:10 Blood Pressure 120/60 01/14/18 09:10 O2 Sat by Pulse Oximetry (%) 98 01/13/18 21:00 Constitutional: Yes: Well Nourished, No Distress, Anxious Cardiovascular: Yes: WNL, Pulse Irregular, Murmur Respiratory: Yes: WNL, Regular, CTA Bilaterally. No: Accessory Muscle Use, SOB , Tachypnea, Wheezes Gastrointestinal: Yes: WNL, Normal Bowel Sounds, Soft, Abdomen, Obese. No: Distention, Tenderness Genitourinary: Yes: WNL Musculoskeletal: Yes: Back Pain Edema: Yes Edema: LLE: Trace, RLE: Trace Neurological: Yes: Alert, Oriented, Numbness (LE's), Tingling Psychiatric: Yes: WNL, Alert, Oriented Labs: CBC, BMP 01/14/18 06:00 01/14/18 06:00 - ....Imaging MRI: Pending Problem List - Problems (1) UTI (urinary tract infection) Code(s): N39.0 - URINARY TRACT INFECTION, SITE NOT SPECIFIED Qualifiers: Urinary tract infection type: site unspecified Hematuria presence: with hematuria Qualified Code(s): N39.0 - Urinary tract infection, site not specified; R31.9 - Hematuria, unspecified; R31.9 - Hematuria, unspecified (2) Leukocytosis Code(s): D72.829 - ELEVATED WHITE BLOOD CELL COUNT, UNSPECIFIED (3) Fall Code(s): W19.XXXA - UNSPECIFIED FALL, INITIAL ENCOUNTER (4) Low back pain Code(s): M54.5 - LOW BACK PAIN Qualifiers: Chronicity: acute Back pain laterality: bilateral (5) HLD (hyperlipidemia) Code(s): E78.5 - HYPERLIPIDEMIA, UNSPECIFIED (6) HTN (hypertension) Code(s): I10 - ESSENTIAL (PRIMARY) HYPERTENSION Qualifiers: Hypertension type: essential hypertension Qualified Code(s): I10 - Essential (primary) hypertension (7) Hypothyroid Code(s): E03.9 - HYPOTHYROIDISM, UNSPECIFIED (8) Afib Code(s): I48.91 - UNSPECIFIED ATRIAL FIBRILLATION Qualifiers: Atrial fibrillation type: chronic Qualified Code(s): I48.2 - Chronic atrial fibrillation (9) CAD (coronary artery disease) Code(s): I25.10 - ATHSCL HEART DISEASE OF [place] CORONARY ARTERY W/O ANG PCTRS (10) COPD (chronic obstructive pulmonary disease) Code(s): J44.9 - CHRONIC OBSTRUCTIVE PULMONARY DISEASE, UNSPECIFIED (11) Osteoarthritis Code(s): M19.90 - UNSPECIFIED OSTEOARTHRITIS, UNSPECIFIED SITE Qualifiers: Osteoarthritis location: spine Spinal region: cervical (12) History of breast cancer Code(s): Z85.3 - PERSONAL HISTORY OF MALIGNANT NEOPLASM OF BREAST (13) Sepsis Code(s): A41.9 - SEPSIS, UNSPECIFIED ORGANISM Assessment/Plan (1) Sepsis Assessment/Plan: Improving, secondary to UTI-ecoli Leukocytosis, febrile to 100.7f, tachycardia since admission UA/UC positive IVF plan as below Code(s): A41.9 - SEPSIS, UNSPECIFIED ORGANISM (2) UTI (urinary tract infection) Assessment/Plan: UA+, +leuk es, +nitrite UC w/ ecoli ceftriaxone day 3 will monitor Code(s): N39.0 - URINARY TRACT INFECTION, SITE NOT SPECIFIED Qualifiers: Urinary tract infection type: site unspecified Hematuria presence: with hematuria Qualified Code(s): N39.0 - Urinary tract infection, site not specified; R31.9 - Hematuria, unspecified; R31.9 - Hematuria, unspecified (3) Leukocytosis Assessment/Plan: secondary to UTI improved plan as above Code(s): D72.829 - ELEVATED WHITE BLOOD CELL COUNT, UNSPECIFIED (4) Fall Assessment/Plan: s/p fall w/out loc/head trauma 2 weeks ago, mechanical coccyx/lumbar/thoracic xrays without acute fracture fall precautions Code(s): W19.XXXA - UNSPECIFIED FALL, INITIAL ENCOUNTER (5) Low back pain Assessment/Plan: worsening low back pain w/ radiation to LE's +numbness/tingling of LE's lumbar CT without acute findings tylenol/ morphine PT MRI pending neuro following pain management consult noted Code(s): M54.5 - LOW BACK PAIN Qualifiers: Chronicity: acute Back pain laterality: bilateral (6) HLD (hyperlipidemia) Assessment/Plan: chronic continue crestor Code(s): E78.5 - HYPERLIPIDEMIA, UNSPECIFIED (7) HTN (hypertension) Assessment/Plan: controlled continue hct/metoprolol Code(s): I10 - ESSENTIAL (PRIMARY) HYPERTENSION Qualifiers: Hypertension type: essential hypertension Qualified Code(s): I10 - Essential (primary) hypertension (8) Hypothyroid Assessment/Plan: chronic continue levothyroxine Code(s): E03.9 - HYPOTHYROIDISM, UNSPECIFIED (9) Afib Assessment/Plan: controlled continue metoprolol/ eliquis Code(s): I48.91 - UNSPECIFIED ATRIAL FIBRILLATION Qualifiers: Atrial fibrillation type: chronic Qualified Code(s): I48.2 - Chronic atrial fibrillation (10) CAD (coronary artery disease) Assessment/Plan: stable continue statin Code(s): I25.10 - ATHSCL HEART DISEASE OF [place] CORONARY ARTERY W/O ANG PCTRS (11) COPD (chronic obstructive pulmonary disease) Assessment/Plan: chronic continue current management Code(s): J44.9 - CHRONIC OBSTRUCTIVE PULMONARY DISEASE, UNSPECIFIED (12) Osteoarthritis Assessment/Plan: chronic Tylenol PT Code(s): M19.90 - UNSPECIFIED OSTEOARTHRITIS, UNSPECIFIED SITE Qualifiers: Osteoarthritis location: spine Spinal region: cervical (13) History of breast cancer Assessment/Plan: s/p chemp, xrt, left partial mastectomy Code(s): Z85.3 - PERSONAL HISTORY OF MALIGNANT NEOPLASM OF BREAST
[2018-01-14] MEDS ORDERED: morphine CARPU-JECT 2 MG/1 ML DISP.SYRIN IVPUSH ONE (11:30)
[2018-01-14] MEDS: LACTOBACILLUS ACIDOPHILUS 1 TABLET PO SCH (13:59)
[2018-01-14] MEDS: POLYETHYLENE GLYCOL 3350 119 GM BTL PO SCH ×2 (13:59→22:53)
[2018-01-14] MEDS: DOCUSATE SODIUM 100 MG CAPSULE (FP) PO SCH ×2 (14:01→22:46)
[2018-01-14] MEDS: SODIUM CHLORIDE 1,000 ML IV SCH (18:09)
[2018-01-14] MEDS: ROSUVASTATIN CA 10 MG TABLET (FP) PO SCH (22:46)
[2018-01-14] MEDS: SENNOSIDES 8.6MG TABLET (FP) PO SCH (22:47)
[2018-01-15] MEDS: morphine SULFATE 4 MG/ML VIAL IVPUSH PRN ×4 (06:13→19:55)
[2018-01-15] MEDS: LEVOTHYROXINE NA 50 MCG TABLET (FP) PO SCH (06:14)
[2018-01-15] MEDS: DOCUSATE SODIUM 100 MG CAPSULE (FP) PO SCH ×3 (06:14→22:00)
[2018-01-15] MEDS: PREGABALIN 75 MG CAPSULE PO SCH (06:14)
[2018-01-15] MEDS: ALBUTEROL SO4 2.5/IPRATROPIUM 0.5 INH SOL 3 ML VIAL.NEB. NEB SCH ×3 (07:30→20:10)
[2018-01-15 08:02] LABS: BASO % 0.3 % (0-2.0); EOS % 0.8 % (0-4.5); HEMATOCRIT 29.2 % (32.4-45.2); HEMOGLOBIN 9.9 GM/dL (10.7-15.3); LYMPH % 14.8 % (8-40); MCHC 33.9 g/dl (32.0-36.0); MEAN CELL VOLUME 88.4 fl (80-96); NEUT % 73.1 % (42.8-82.8); PLATELET COUNT 162 K/MM3 (134-434); RBC 3.31 M/mm3 (3.60-5.2); RDW 14.4 % (11.6-15.6); WHITE BLOOD COUNT 6.8 K/mm3 (4.0-10.0)
[2018-01-15 08:31] LABS: ANION GAP 6 (8-16); BLOOD UREA NITROGEN 10 mg/dL (7-18); CALCIUM 7.8 mg/dL (8.5-10.1); CHLORIDE 103 mmol/L (98-107); CO2 30 mmol/L (21-32); GLUCOSE,RANDOM 102 mg/dL (74-106); MAGNESIUM 2.2 mg/dL (1.8-2.4); POTASSIUM 4.1 mmol/L (3.5-5.1); SODIUM 139 mmol/L (136-145)
[2018-01-15 08:53] LABS: CREATININE 0.4 mg/dL (0.55-1.02); PHOSPHOROUS 3.4 mg/dL (2.5-4.9)
[2018-01-15] MEDS ORDERED: cefTRIAXone SODIUM 1 GM VIAL ONE (09:54)
[2018-01-15] MEDS ORDERED: DEXTROSE 5%-WATER - 50 ML IVPB ONE (09:54)
[2018-01-15] MEDS ORDERED: PT OWN MED DRAWER 7, Y5N ONE ×4 (09:56→22:25)
[2018-01-15] MEDS ORDERED: PREGABALIN 75 MG CAPSULE PO SCH (10:00)
--- NOTE | 2018-01-15 10:00 | PN ---
Progress Note (short form) - Note Progress Note: Neurology History of Present Illness: 77 year old female here for worsening low back pain radiating to lower extremities and inability to ambulate at home. She reported b/l lower extremity pain for past several days but for last 3-4 weeks has discomfort in her feet radiating up to her back. She also states she has ongoing low back pain and is uncomfortable appearing in bed, holding on rails on sides. She states she is not able to ambulate. She has been on Lyrica and ordered for 100mg twice daily. CT L spine completed with chronic arthritic changes noted as well as antherolisthesis. She describes the pain as sharp, pins and needles. Reportedly with recent fall at [facility]term. Is getting pain medication here and Dr. Castellanos consulted for futher pain mgmt, no significant improvement overnight. MRI L spine completed and showed L5 severe thecal sac compression. Discitis also noted, but no osteo evident. On IV Abx. Discussed with her increasing lyrica to 100 tid and she was in agreement. Discussed with primary team as well as plan to have Dr. Castellanos follow up. Primary team also to consult neurosurgery for evaluation. ID also to be consulted. Active Medications Acetaminophen (Tylenol -) 650 mg PO Q6H PRN PRN Reason: PAIN LEVEL 1-5 Last Admin: 01/14/18 23:36 Dose: 650 mg Albuterol Sulfate (Ventolin Hfa Inhaler -) 1 puff IH Q6H PRN PRN Reason: ASTHMA Albuterol Sulfate (Ventolin Hfa Inhaler -) 2 puff IH Q6H PRN PRN Reason: ASTHMA Last Admin: 01/14/18 05:41 Dose: 2 puff Albuterol/Ipratropium (Duoneb -) 1 amp NEB RTID [facility] Last Admin: 01/15/18 07:30 Dose: 1 amp Apixaban (Eliquis -) 5 mg PO BID [facility] Last Admin: 01/14/18 22:47 Dose: 5 mg Ascorbic Acid (Vitamin C -) 500 mg PO DAILY [facility] Last Admin: 01/14/18 09:23 Dose: 500 mg Budesonide/Formoterol Fumarate (Symbicort 80/4.5mcg -) 2 puff IH BID [facility] Last Admin: 01/14/18 22:48 Dose: 2 puff Cyanocobalamin (Vitamin B12 -) 2,500 mcg PO DAILY [facility] Last Admin: 01/14/18 09:22 Dose: 2,500 mcg Docusate Sodium (Colace -) 100 mg PO TID [facility] Last Admin: 01/15/18 06:14 Dose: 100 mg Ferrous Sulfate (Feosol -) 325 mg PO DAILY [facility] Last Admin: 01/14/18 09:23 Dose: 325 mg Hydrochlorothiazide (Hctz -) 12.5 mg PO DAILY [facility] Last Admin: 01/14/18 09:23 Dose: 12.5 mg Ceftriaxone Sodium 1 gm/ (Dextrose) 50 mls @ 100 mls/hr IVPB DAILY [facility] PRN Reason: Protocol Last Admin: 01/14/18 09:15 Dose: 100 mls/hr Sodium Chloride (Normal Saline -) 1,000 mls @ 50 mls/hr IV ASDIR [facility] Last Admin: 01/14/18 18:09 Dose: 50 mls/hr Lactobacillus Acidophilus (Bacid -) 1 tab PO DAILY [facility] Last Admin: 01/14/18 13:59 Dose: 1 tab Levothyroxine Sodium (Synthroid -) 50 mcg PO ACBK [facility] Last Admin: 01/15/18 06:14 Dose: 50 mcg Losartan Potassium (Cozaar -) 50 mg PO DAILY [facility] Last Admin: 01/14/18 09:23 Dose: 50 mg Metoprolol Succinate (Toprol Xl -) 50 mg PO DAILY [facility] Last Admin: 01/14/18 09:23 Dose: 50 mg Morphine Sulfate (Morphine Sulfate) 2 mg IVPUSH Q4H PRN PRN Reason: PAIN LEVEL 6-10 Last Admin: 01/15/18 06:13 Dose: 2 mg Pantoprazole Sodium (Protonix -) 40 mg PO DAILY [facility] Last Admin: 01/14/18 09:23 Dose: 40 mg Polyethylene Glycol (Miralax (For Daily Use) -) 17 gm PO BID [facility] Last Admin: 01/14/18 22:53 Dose: 17 grams Pramipexole Dihydrochloride (Mirapex -) 0.25 mg PO BID [facility] Last Admin: 01/14/18 22:47 Dose: 0.25 mg Pregabalin (Lyrica -) 75 mg PO TID [facility] Last Admin: 01/15/18 06:14 Dose: 75 mg Rosuvastatin Calcium (Crestor -) 10 mg PO HS [facility] Last Admin: 01/14/18 22:46 Dose: 10 mg Senna (Senna -) 2 tab PO HS [facility] Last Admin: 01/14/18 22:47 Dose: 2 tab Solifenacin (Vesicare -) 10 mg PO DAILY [facility] Last Admin: 01/14/18 09:24 Dose: 10 mg *Physical Exam Vital Signs Period Temp Pulse Resp BP Sys/Bocanegra Pulse Ox Last 24 Hr 98.4 F-102.8 F 72-95 18-24 101-131/51-72 95 GENERAL: +Patient acutely in pain. Awake, alert, and fully oriented HEAD: No signs of trauma, normocephalic, atraumatic EYES: PERRLA, EOMI, sclera anicteric, conjunctiva clear ENT: Auricles normal inspection, hearing grossly normal, nares patent, oropharynx clear without exudates. Moist mucosa NECK: Normal ROM, supple, no lymphadenopathy, JVD, or masses LUNGS: No distress, speaks full sentences, clear to auscultation bilaterally HEART: Regular rate and rhythm, normal S1 and S2, no murmurs, rubs or gallops, peripheral pulses normal and equal bilaterally. ABDOMEN: Soft, nontender, normoactive bowel sounds. No guarding, no rebound. No masses EXTREMITIES: +Patient acutely tender across lower back bilaterally. Strength intact. Normal inspection, Normal range of motion, no edema. No clubbing or cyanosis. NEUROLOGICAL: Cranial nerves II through XII grossly intact. Raising RLE to gravity and resistence 4+/5, LLE limited by pain 3-/5, sensation intact to LT, gait deferred SKIN: Warm, Dry, normal turgor, no rashes or lesions noted. CBCD WBC 6.8 K/mm3 (4.0-10.0) 01/15/18 06:00 RBC 3.31 M/mm3 (3.60-5.2) L 01/15/18 06:00 Hgb 9.9 GM/dL (10.7-15.3) L 01/15/18 06:00 Hct 29.2 % (32.4-45.2) L 01/15/18 06:00 MCV 88.4 fl (80-96) 01/15/18 06:00 MCHC 33.9 g/dl (32.0-36.0) 01/15/18 06:00 RDW 14.4 % (11.6-15.6) 01/15/18 06:00 Plt Count 162 K/MM3 (134-434) 01/15/18 06:00 MPV 8.0 fl (7.5-11.1) D 01/15/18 06:00 CMP Sodium 139 mmol/L (136-145) 01/15/18 06:00 Potassium 4.1 mmol/L (3.5-5.1) 01/15/18 06:00 Chloride 103 mmol/L (98-107) 01/15/18 06:00 Carbon Dioxide 30 mmol/L (21-32) 01/15/18 06:00 Anion Gap 6 (8-16) L 01/15/18 06:00 BUN 10 mg/dL (7-18) 01/15/18 06:00 Creatinine 0.4 mg/dL (0.55-1.02) L 01/15/18 06:00 Creat Clearance w eGFR > 60 (>60) 01/12/18 11:39 Calcium 7.8 mg/dL (8.5-10.1) L 01/15/18 06:00 Total Bilirubin 0.7 mg/dL (0.2-1.0) D 01/12/18 11:39 AST 22 U/L (15-37) 01/12/18 11:39 ALT 15 U/L (12-78) 01/12/18 11:39 Alkaline Phosphatase 59 U/L (45-117) 01/12/18 11:39 Total Protein 6.3 g/dl (6.4-8.2) L 01/12/18 11:39 Albumin 2.9 g/dl (3.4-5.0) L 01/12/18 11:39 Imaging Cat Scan: Report Reviewed MRI L spine reviewed Plan 77 year old female here for worsening low back pain radiating to lower extremities and inability to ambulate at home. She reported b/l lower extremity pain for past several days but for last 3-4 weeks has discomfort in her feet radiating up to her back. She also states she has ongoing low back pain and is uncomfortable appearing in bed, holding on rails on sides. She states she is not able to ambulate. She has been on Lyrica and ordered for 100mg twice daily. CT L spine completed with chronic arthritic changes noted as well as antherolisthesis. Reportedly with recent fall at longterm. MRI L spine reviewed, severe L5 thecal sac compression, NSGY consult Pain mgmt follow up Will increase Lyrica to 100mg three times daily ID consult Also on morphine 2mg IV, Q4hrs PRN, will need to cautious with medications Physical therapy as tolerated Continue treatment of UTI, on IV Abx Hydration recommended Fall precautions
[2018-01-15] MEDS: APIXABAN 5 MG TABLET PO SCH ×2 (10:20→22:01)
[2018-01-15] MEDS: LOSARTAN POTASSIUM 50 MG TABLET (FP) PO SCH (10:20)
[2018-01-15] MEDS: POLYETHYLENE GLYCOL 3350 119 GM BTL PO SCH ×2 (10:21→22:01)
[2018-01-15] MEDS: HYDROCHLOROTHIAZIDE 12.5 MG CAPSULE (FP) PO SCH (10:21)
[2018-01-15] MEDS: FERROUS SO4 325 MG TABLET (FP) PO SCH (10:21)
[2018-01-15] MEDS: PRAMIPEXOLE DIHYDROCHLORIDE 0.25 MG TABLET PO SCH ×2 (10:22→22:02)
[2018-01-15] MEDS: CEFTRIAXONE 1 GM in DEXTROSE 5%-WATER - 50 ML IVPB SCH (10:23)
[2018-01-15] MEDS: PANTOPRAZOLE 40 MG TABLET (FP) PO SCH (10:23)
[2018-01-15] MEDS: BUDESONIDE/FORMETEROL FUMARATE 80/4.5 mcg INHALER IH SCH ×2 (10:24→22:02)
[2018-01-15] MEDS: SOLIFENACIN SUCCINATE 5 MG TAB (FP) PO SCH (10:25)
[2018-01-15] MEDS: ASCORBIC ACID 500 MG TABLET (FP) PO SCH (10:25)
[2018-01-15] MEDS: CYANOCOBALAMIN 1,000 MCG TABLET (FP) PO SCH (10:26)
[2018-01-15] MEDS: LACTOBACILLUS ACIDOPHILUS 1 TABLET PO SCH (10:29)
--- NOTE | 2018-01-15 10:32 | PN ---
Progress Note, Physician Chief Complaint: Pt lying flat in bed in no acute distress. Report LBP w/ radiation to LEs , pins and needles. reports very minimal relief with morphine. otherwise, denies chest pain, sob, n/v/d - Current Medication List Current Medications: Active Medications Acetaminophen (Tylenol -) 650 mg PO Q6H PRN PRN Reason: PAIN LEVEL 1-5 Last Admin: 01/14/18 23:36 Dose: 650 mg Albuterol Sulfate (Ventolin Hfa Inhaler -) 1 puff IH Q6H PRN PRN Reason: ASTHMA Albuterol Sulfate (Ventolin Hfa Inhaler -) 2 puff IH Q6H PRN PRN Reason: ASTHMA Last Admin: 01/14/18 05:41 Dose: 2 puff Albuterol/Ipratropium (Duoneb -) 1 amp NEB RTID [facility] Last Admin: 01/15/18 07:30 Dose: 1 amp Apixaban (Eliquis -) 5 mg PO BID [facility] Last Admin: 01/14/18 22:47 Dose: 5 mg Ascorbic Acid (Vitamin C -) 500 mg PO DAILY [facility] Last Admin: 01/14/18 09:23 Dose: 500 mg Budesonide/Formoterol Fumarate (Symbicort 80/4.5mcg -) 2 puff IH BID [facility] Last Admin: 01/14/18 22:48 Dose: 2 puff Cyanocobalamin (Vitamin B12 -) 2,500 mcg PO DAILY [facility] Last Admin: 01/14/18 09:22 Dose: 2,500 mcg Docusate Sodium (Colace -) 100 mg PO TID [facility] Last Admin: 01/15/18 06:14 Dose: 100 mg Ferrous Sulfate (Feosol -) 325 mg PO DAILY [facility] Last Admin: 01/14/18 09:23 Dose: 325 mg Hydrochlorothiazide (Hctz -) 12.5 mg PO DAILY [facility] Last Admin: 01/14/18 09:23 Dose: 12.5 mg Ceftriaxone Sodium 1 gm/ (Dextrose) 50 mls @ 100 mls/hr IVPB DAILY [facility] PRN Reason: Protocol Last Admin: 01/14/18 09:15 Dose: 100 mls/hr Sodium Chloride (Normal Saline -) 1,000 mls @ 50 mls/hr IV ASDIR [facility] Last Admin: 01/14/18 18:09 Dose: 50 mls/hr Lactobacillus Acidophilus (Bacid -) 1 tab PO DAILY [facility] Last Admin: 01/14/18 13:59 Dose: 1 tab Levothyroxine Sodium (Synthroid -) 50 mcg PO ACBK [facility] Last Admin: 01/15/18 06:14 Dose: 50 mcg Losartan Potassium (Cozaar -) 50 mg PO DAILY [facility] Last Admin: 01/14/18 09:23 Dose: 50 mg Metoprolol Succinate (Toprol Xl -) 50 mg PO DAILY [facility] Last Admin: 01/14/18 09:23 Dose: 50 mg Morphine Sulfate (Morphine Sulfate) 2 mg IVPUSH Q4H PRN PRN Reason: PAIN LEVEL 6-10 Last Admin: 01/15/18 06:13 Dose: 2 mg Pantoprazole Sodium (Protonix -) 40 mg PO DAILY [facility] Last Admin: 01/14/18 09:23 Dose: 40 mg Polyethylene Glycol (Miralax (For Daily Use) -) 17 gm PO BID [facility] Last Admin: 01/14/18 22:53 Dose: 17 grams Pramipexole Dihydrochloride (Mirapex -) 0.25 mg PO BID [facility] Last Admin: 01/14/18 22:47 Dose: 0.25 mg Pregabalin (Lyrica -) 100 mg PO TID [facility] Rosuvastatin Calcium (Crestor -) 10 mg PO HS [facility] Last Admin: 01/14/18 22:46 Dose: 10 mg Senna (Senna -) 2 tab PO HS [facility] Last Admin: 01/14/18 22:47 Dose: 2 tab Solifenacin (Vesicare -) 10 mg PO DAILY [facility] Last Admin: 01/14/18 09:24 Dose: 10 mg - Objective Vital Signs: Vital Signs Temperature 101.8 F H 01/15/18 02:00 Pulse Rate 81 01/15/18 02:00 Respiratory Rate 20 01/15/18 02:00 Blood Pressure 122/66 01/15/18 02:00 O2 Sat by Pulse Oximetry (%) 95 01/14/18 21:00 Constitutional: Yes: Well Nourished, No Distress, Anxious Cardiovascular: Yes: Pulse Irregular, Murmur Respiratory: Yes: WNL, Regular, CTA Bilaterally. No: Accessory Muscle Use, Tachypnea, Wheezes Gastrointestinal: Yes: WNL, Normal Bowel Sounds, Soft, Abdomen, Obese. No: Distention, Tenderness Edema: No Neurological: Yes: Alert, Oriented, Numbness (LE's), Tingling Psychiatric: Yes: WNL, Alert, Oriented Labs: CBC, BMP 01/15/18 06:00 01/15/18 06:00 - ....Imaging MRI: Report Reviewed (severe thecal sac compression-L5) Problem List - Problems (1) UTI (urinary tract infection) Code(s): N39.0 - URINARY TRACT INFECTION, SITE NOT SPECIFIED Qualifiers: Urinary tract infection type: site unspecified Hematuria presence: with hematuria Qualified Code(s): N39.0 - Urinary tract infection, site not specified; R31.9 - Hematuria, unspecified; R31.9 - Hematuria, unspecified (2) Leukocytosis Code(s): D72.829 - ELEVATED WHITE BLOOD CELL COUNT, UNSPECIFIED (3) Fall Code(s): W19.XXXA - UNSPECIFIED FALL, INITIAL ENCOUNTER (4) Low back pain Code(s): M54.5 - LOW BACK PAIN Qualifiers: Chronicity: acute Back pain laterality: bilateral (5) HLD (hyperlipidemia) Code(s): E78.5 - HYPERLIPIDEMIA, UNSPECIFIED (6) HTN (hypertension) Code(s): I10 - ESSENTIAL (PRIMARY) HYPERTENSION Qualifiers: Hypertension type: essential hypertension Qualified Code(s): I10 - Essential (primary) hypertension (7) Hypothyroid Code(s): E03.9 - HYPOTHYROIDISM, UNSPECIFIED (8) Afib Code(s): I48.91 - UNSPECIFIED ATRIAL FIBRILLATION Qualifiers: Atrial fibrillation type: chronic Qualified Code(s): I48.2 - Chronic atrial fibrillation (9) CAD (coronary artery disease) Code(s): I25.10 - ATHSCL HEART DISEASE OF [place] CORONARY ARTERY W/O ANG PCTRS (10) COPD (chronic obstructive pulmonary disease) Code(s): J44.9 - CHRONIC OBSTRUCTIVE PULMONARY DISEASE, UNSPECIFIED (11) Osteoarthritis Code(s): M19.90 - UNSPECIFIED OSTEOARTHRITIS, UNSPECIFIED SITE Qualifiers: Osteoarthritis location: spine Spinal region: cervical (12) History of breast cancer Code(s): Z85.3 - PERSONAL HISTORY OF MALIGNANT NEOPLASM OF BREAST (13) Sepsis Code(s): A41.9 - SEPSIS, UNSPECIFIED ORGANISM Assessment/Plan (1) Sepsis Assessment/Plan: Improving, secondary to UTI-ecoli Leukocytosis resolved persistent fevers MRI-lumbar unable to r/o discitis ID consulted IVF plan as below Code(s): A41.9 - SEPSIS, UNSPECIFIED ORGANISM (2) UTI (urinary tract infection) Assessment/Plan: UA+, +leuk es, +nitrite UC w/ ecoli ceftriaxone day 4 will monitor Code(s): N39.0 - URINARY TRACT INFECTION, SITE NOT SPECIFIED Qualifiers: Urinary tract infection type: site unspecified Hematuria presence: with hematuria Qualified Code(s): N39.0 - Urinary tract infection, site not specified; R31.9 - Hematuria, unspecified; R31.9 - Hematuria, unspecified (3) Leukocytosis Assessment/Plan: resolved Code(s): D72.829 - ELEVATED WHITE BLOOD CELL COUNT, UNSPECIFIED (4) Fall Assessment/Plan: s/p fall w/out loc/head trauma 2 weeks ago, mechanical coccyx/lumbar/thoracic xrays without acute fracture fall precautions Code(s): W19.XXXA - UNSPECIFIED FALL, INITIAL ENCOUNTER (5) Low back pain Assessment/Plan: worsening low back pain w/ radiation to LE's +numbness/tingling of LE's lumbar CT without acute findings MRI- severe thecal compression, changes from prev tylenol/ morphine/lyrica PT neuro following pain management following Code(s): M54.5 - LOW BACK PAIN Qualifiers: Chronicity: acute Back pain laterality: bilateral (6) HLD (hyperlipidemia) Assessment/Plan: chronic continue crestor Code(s): E78.5 - HYPERLIPIDEMIA, UNSPECIFIED (7) HTN (hypertension) Assessment/Plan: controlled continue hct/metoprolol Code(s): I10 - ESSENTIAL (PRIMARY) HYPERTENSION Qualifiers: Hypertension type: essential hypertension Qualified Code(s): I10 - Essential (primary) hypertension (8) Hypothyroid Assessment/Plan: chronic continue levothyroxine Code(s): E03.9 - HYPOTHYROIDISM, UNSPECIFIED (9) Afib Assessment/Plan: controlled continue metoprolol/ eliquis Code(s): I48.91 - UNSPECIFIED ATRIAL FIBRILLATION Qualifiers: Atrial fibrillation type: chronic Qualified Code(s): I48.2 - Chronic atrial fibrillation (10) CAD (coronary artery disease) Assessment/Plan: stable continue statin Code(s): I25.10 - ATHSCL HEART DISEASE OF [place] CORONARY ARTERY W/O ANG PCTRS (11) COPD (chronic obstructive pulmonary disease) Assessment/Plan: chronic continue current management Code(s): J44.9 - CHRONIC OBSTRUCTIVE PULMONARY DISEASE, UNSPECIFIED (12) Osteoarthritis Assessment/Plan: chronic Tylenol PT Code(s): M19.90 - UNSPECIFIED OSTEOARTHRITIS, UNSPECIFIED SITE Qualifiers: Osteoarthritis location: spine Spinal region: cervical (13) History of breast cancer Assessment/Plan: s/p chemp, xrt, left partial mastectomy Code(s): Z85.3 - PERSONAL HISTORY OF MALIGNANT NEOPLASM OF BREAST
--- NOTE | 2018-01-15 14:46 | PN ---
Progress Note (short form) - Note Progress Note: NEUROSURGERY CONSULT DICTATED c/o worsening low back pain radiating to L > R hip/thigh and inability to ambulate x 1 week . She describes the pain as sharp, pins and needles. [facility]ust[facility]. She reports dysuria and urinary frequency x 2 weeks. She denies any fever/chills weakness, b/b incontinence. PE: AF, VSS HEENT- NC, AT; Neck- supple; Cor- RR; Lungs- CTA; Abd- obese, benign; Ext- no sign of DVT CN- intact II-XII; Motor- 4+/5 throughout except L DF 4- and L DF 4; Sensation- decreased L L4-5-S1 to PP/LT/vibration; DTR- hyporeflexic B WBC 6.8; ESR 101; CRP pending Urine Cx- E Coli; Blood Cx- pending LS CT- B L5 spondylolysis with L5-S1 spondylolisthesis, T12/L1 chronic wedgign LS spine MRI- Heterogenous vertebral signals; L5-S1 DDD/spondylolisthesis; L5- S1 foramenal stenosis R > L; epidural fat slightly worsening L5-S1 spondylolisthesis and stenosis Clinical L > R L5 radiculopathy LS spine MRI with maureen to r/o infectious process PT/meds/pain management - on Ellen tinajero
[2018-01-15] MEDS: PREGABALIN 50 MG CAPSULE PO SCH ×2 (15:18→22:00)
--- NOTE | 2018-01-15 16:14 | CONS ---
DATE OF CONSULTATION: DATE OF DICTATION: 01/15/2018 REQUESTING PHYSICIAN: Baldo Beal MD TURNTABLE WORKER: Edy Sapp MD, Neurosurgery CHIEF COMPLAINT: Lower back pain and sciatica. HISTORY OF PRESENT ILLNESS: The patient is a 78-year-old right-handed female with history of chronic lower back pain over a couple years duration and bilateral sciatica, who is status post a fall about 2 weeks ago while at the [facility]. She had fallen backwards and landed on her buttock. She complains of 1 week history of increasing pain radiating down to the buttocks and hips, left greater than right. She has not been able to ambulate as a result. She has some chronic numbness and tingling of her lower extremity. She had a prior MRI examination this past September for similar symptoms but not quite as severe. She denies fevers or chills. She did have some dysuria and frequency, and is being treated for an E coli UTI. Presently, her pain is better than it was about 3 days ago when she was admitted. She still had numbness and paresthesia of her legs. She denies weakness. She has no bowel or bladder incontinence. Past medical history is significant for peripheral neuropathy, TIA, atrial fibrillation, coronary artery disease, hypertension, hypercholesterolemia, COPD, gastroesophageal reflux disease, breast CA, anemia, hypothyroidism, left hip replacement, right knee replacement, left mastectomy, and bladder sling surgery. Current medications include Protonix, hydrochlorothiazide, Synthroid, vitamin B12, vitamin C, morphine, ferrous sulfate, Crestor, Vesicare, Mirapex, senna, Colace, Toprol XL, DuoNeb, metoprolol, albuterol inhaler, Bacid, Lyrica, Eliquis, ceftriaxone, losartan, and Symbicort. There are no known drug allergies. Family history is noncontributory. In terms of social history, she does not smoke or drink. She is retired. Review of systems is otherwise negative for other major constitutional, head, neck, cardiovascular, pulmonary, gastrointestinal, genitourinary, endocrinological, neurological, or psychological problem except for the above. PHYSICAL EXAMINATION: Vital Signs: Temperature T-max is 102.8 with pulse rate 99. Blood pressure is 118/56 with a pulse rate 78. O2 saturation 98% on 3 L. HEENT: Normocephalic, atraumatic. Anicteric. Neck: Supple with no lymphadenopathy, no carotid bruit. Coronary: Irregular rhythm. Lungs: Clear except for decreased breath sound in the bases. Abdomen: Obese but benign. Extremities: No obvious signs of DVT. Neurologic: She is awake, alert, oriented x3. Cranial nerves examination is intact, 2-12. Motor examination shows 4+ strength in the bilateral upper and lower extremities except for left foot dorsiflexion, which is 4-, and right foot dorsiflexion was 4/5. Sensory examination shows diminished pinprick and light touch and vibratory sensation in left L4, L5 and S1 distribution. Deep tendon reflexes are hyporeflexive throughout. There is no pathologic long tract sign. Gait is not tested, for safety reasons. Examination of lower back shows left sciatic notch tenderness, greater than right. She has a positive straight-leg raise on the left side to about 45 degrees. Laboratory examination initially shows white blood cell count 12.9; it is now 6.8. ESR is 101. CRP is pending. Serum sodium is 139, potassium 4.1, BUN 10, creatinine 0.4. LFTs are normal. Urinalysis initially shows 2+ leukocyte esterase with 97 WBCs and 181 RBC. Urine culture shows E coli sensitive to ampicillin and Bactrim. Blood cultures are still pending. CT scan of the lumbar spine demonstrated multilevel spondylosis. There is bilateral L5 spondylolysis with L5-S1 spondylolisthesis. There is also anterior wedging of the T12 and L1 vertebral body with change since abdominal CT scan from 2016. A hepatic cyst is also noted along with left-sided nonobstructing renal calculi. MRI of the lumbar spine demonstrated multilevel degenerative disk disease and heterogeneous signal change involving the vertebral bodies. There is T12-L1 vertebral wedging, significant for prior vertebral fractures. There is grade 1 L5-S1 spondylolisthesis with degenerative disk space narrowing as well as bilateral foraminal stenosis. Hemangioma is noted at L4, L5, and S1. There is hypertrophy, right greater than left side, L5-S1 with lateral recess narrowing. There is increasing epidural fat at L4, L5, and S1. There is edema in the paraspinal soft tissue at L5-S1, which could be posttraumatic. There is slight increased T2 signal at the L5-S1 disk space. IMPRESSION: 1. History of bilateral L5 spondylolysis with L5-S1 spondylolisthesis. 2. Status post recent fall with increasing lower back pain, left greater than right, lumbar radiculopathy, predominantly L5. 3. Coronary artery disease. 4. History of transient ischemic attack. 5. Hypothyroidism. 6. Atrial fibrillation/coronary artery disease. 7. Chronic obstructive pulmonary disease. 8. History of breast cancer. RECOMMENDATIONS: The patient presents with a 1-week history of increasing lower back pain, bilateral sciatica left greater than right. She has numbness and paresthesia of lower extremity, which is consistent with her prior symptoms as well as her history of peripheral neuropathy. She has been on Lyrica. The patient has been seen previously by a pain management physician, she will follow up with him. She was reportedly seen by Dr. Newman. The patient's MRI findings are most consistent with degenerative findings; however, there is a possibility, given increasing disk space edema as well as paraspinal edema, that there is an indolent infection. An MRI of the lumbar spine with gadolinium is ordered for that reason. However, given the fact that she did have a recent traumatic fall, this might be post-traumatic as well, in addition to degenerative findings. The above was discussed with patient at bedside. She did state that her pain is better than it was 3 days ago. The MRI findings were discussed with patient in detail. All questions were answered at bedside. EDY SAPP M.D. [id number] MTDD
[2018-01-15] MEDS: SODIUM CHLORIDE 1,000 ML IV SCH ×2 (16:30→19:33)
--- NOTE | 2018-01-15 17:18 | PN ---
Progress Note (short form) - Note Progress Note: ID Consult dictated UTI ? Discitis Fever Blood c/s pending MRI ordered by Dr Ibrahim Continue ceftriaxone for now
--- NOTE | 2018-01-15 18:55 | CONS ---
DATE OF CONSULTATION: DATE OF DICTATION: 01/15/2018 INFECTIOUS DISEASE CONSULTATIONS REASON FOR CONSULTATION: Patient evaluated for fever and urinary tract infection. HISTORY OF PRESENT ILLNESS: The patient is a 78-year-old female. She has a history of chronic low back pain. The low back pain was exacerbated when she sustained a fall approximately 2 weeks while at a alf. She reports a 1-week history of increasing pain of the lower back radiating to the buttocks and hips. In addition, she complained of some numbness and tingling of the lower extremities bilaterally which may be chronic in nature. She is not ambulating secondary to the pain. An MRI was performed and shows multilevel DJD. Has edema in the paraspinal soft tissue at L5-S1, possibly post traumatic. She was seen in consultation by neurosurgery. MRI findings were felt to be consistent with DJD; however, the possibility of possible indolent infection, given increasing disk space edema as well as paraspinal edema is considered. An MRI of the lumbar spine has been ordered. In addition to the above, she had been complaining of urinary frequency and dysuria, for approximately 2 weeks. Urinalysis showed pyuria. Urine culture grew a sensitive E. coli. She was treated with ceftriaxone. Despite ceftriaxone, she has had recurrent fever to as high as 102.8. She denies any shaking chills, no complaints of chest pain, shortness of breath, cough, or sputum production. Her white blood cell count which was mildly elevated on admission is now normal. Her sedimentation rate and C-reactive protein are markedly elevated. PAST MEDICAL HISTORY: Positive for above. Past medical history also includes osteoporosis, breast cancer, mitral valve prolapse, hypertension, hypothyroidism. PAST SURGICAL HISTORY: Status post left mastectomy, left total hip replacement, right total knee replacement, bladder sling. ALLERGIES: No known allergies. MEDICATION: Include iron, Synthroid, hydrochlorothiazide, Crestor, losartan, Protonix, Ditropan, Proventil, Eliquis, Lyrica, Vesicare. SOCIAL HISTORY: She lives at home. Nonsmoker, nondrinker. Was recently in a half-way facility for rehabilitation. SYSTEMS REVIEW: Neurologic: As per HPI. Cardiac: Negative chest pain or palpitations. Respiratory: Negative cough or sputum production. Gastrointestinal: Positive for constipation. Genitourinary: As per HPI. LABORATORY DATA: White count 6.8, hemoglobin 29.2, platelet count 162, BUN 10, creatinine 0.4. Urinalysis 97 white cells. ESR 101, C-reactive protein 27.3. Urine culture E. coli. Blood cultures pending. PHYSICAL EXAMINATION: General: She is awake. She is supine in bed. In moderate distress secondary to back pain. Vital signs: Temperature maximum 102.8, blood pressure 110/56, pulse 78 regular, respirations 20 per minute. HEENT: Sclerae anicteric. Cardiovascular: Heart sounds S1, S2. Respiratory: Lungs diminished breath sounds at the bases bilaterally. Abdomen: Obese. Soft. Mild suprapubic tenderness. Extremities: 2+ edema. IMPRESSION: 1. Urinary tract infection. 2. Possible sepsis secondary to urinary tract infection. 3. Acute exacerbation of chronic back pain. Await blood culture results. Continue ceftriaxone. MRI of the lumbar spine as per neurosurgery. discussed with neurosurgery. If there is consideration of diskitis, or paraspinal inflammation secondary to infectious etiology, would consider obtaining a percutaneous needle biopsy of the involved area off antibiotic therapy. Thank you for the kind referral. MARIA C DELCID M.D. [id number]
[2018-01-15] MEDS: SENNOSIDES 8.6MG TABLET (FP) PO SCH (22:00)
[2018-01-15] MEDS ORDERED: PREGABALIN 50 MG CAPSULE PO SCH ×2 (22:00)
[2018-01-15] MEDS: ROSUVASTATIN CA 10 MG TABLET (FP) PO SCH (22:00)
[2018-01-16] MEDS: morphine SULFATE 4 MG/ML VIAL IVPUSH PRN ×2 (01:51→11:25)
[2018-01-16] MEDS: DOCUSATE SODIUM 100 MG CAPSULE (FP) PO SCH ×3 (05:50→22:04)
[2018-01-16] MEDS: PREGABALIN 50 MG CAPSULE PO SCH ×3 (05:51→22:05)
[2018-01-16] MEDS: LEVOTHYROXINE NA 50 MCG TABLET (FP) PO SCH ×2 (05:51→06:09)
[2018-01-16 07:10] LABS: BASO % 0.1 % (0-2.0); EOS % 1.4 % (0-4.5); LYMPH % 16.6 % (8-40); MCH 30.1 pg (25.7-33.7); MCHC 34.4 g/dl (32.0-36.0); MEAN CELL VOLUME 87.6 fl (80-96); MEAN PLT VOLUME 8.1 fl (7.5-11.1); MONO % 11.5 % (3.8-10.2); NEUT % 70.4 % (42.8-82.8); PLATELET COUNT 205 K/MM3 (134-434); RBC 3.31 M/mm3 (3.60-5.2); RDW 14.4 % (11.6-15.6)
[2018-01-16 07:16] LABS: ANION GAP 6 (8-16); BLOOD UREA NITROGEN 7 mg/dL (7-18); CALCIUM 7.3 mg/dL (8.5-10.1); CHLORIDE 103 mmol/L (98-107); CO2 27 mmol/L (21-32); CREATININE 0.3 mg/dL (0.55-1.02); GLUCOSE,RANDOM 95 mg/dL (74-106); MAGNESIUM 1.9 mg/dL (1.8-2.4); PHOSPHOROUS 2.6 mg/dL (2.5-4.9); POTASSIUM 3.9 mmol/L (3.5-5.1); SODIUM 136 mmol/L (136-145)
[2018-01-16] MEDS: ALBUTEROL SO4 2.5/IPRATROPIUM 0.5 INH SOL 3 ML VIAL.NEB. NEB SCH ×3 (07:23→20:30)
--- NOTE | 2018-01-16 07:51 | PN ---
Progress Note (short form) - Note Progress Note: NEUROSURGERY c/o worsening low back pain radiating to L > R hip/thigh and inability to ambulate x 1 week . PE: Tmax 99.4, VSS (2 days ago tmax 102.8) HEENT- NC, AT; Neck- supple; Cor- RR; Lungs- CTA; Abd- obese, benign; Ext- no sign of DVT CN- intact II-XII; Motor- 4+/5 throughout except L DF 4- and L DF 4; Sensation- decreased L L4-5-S1 to PP/LT/vibration; DTR- hyporeflexic B WBC 6.8; ESR 101; CRP 27.3 Urine Cx- E Coli; Blood Cx- pending LS CT- B L5 spondylolysis with L5-S1 spondylolisthesis, T12/L1 chronic wedging LS spine MRI- Heterogenous vertebral signals; L5-S1 DDD/spondylolisthesis; L5- S1 foramenal stenosis R > L; epidural fat slightly worsening MRI with maureen- L4-5 and L5-S1 disc enhancement and facet enhancement, circumferential epidural enhancement; R L2-3 intraspinal facet cyst with mass effect L5-S1 spondylolisthesis and stenosis; discitis/osteomyelitis/facet infection Clinical L > R L5 radiculopathy ID consulted On Ceftriaxone, consider expanding coverage as E Coli unlikely source of septic spondylitis
[2018-01-16] MEDS ORDERED: MAGNESIUM OXIDE 400 MG TABLET (FP) PO ONE ×2 (08:46→11:15)
[2018-01-16] MEDS ORDERED: POTASSIUM CHLORIDE TABS 20 MEQ TABLET.ER (FP) PO ONE ×2 (08:46→11:15)
--- NOTE | 2018-01-16 09:53 | PN ---
Progress Note (short form) - Note Progress Note: Neurology History of Present Illness: 77 year old female here for worsening low back pain radiating to lower extremities and inability to ambulate at home. She reported b/l lower extremity pain for past several days but for last 3-4 weeks has discomfort in her feet radiating up to her back. She also states she has ongoing low back pain and is uncomfortable appearing in bed, holding on rails on sides. She states she is not able to ambulate. She has been on Lyrica and ordered for 100mg twice daily. CT L spine completed with chronic arthritic changes noted as well as antherolisthesis. She describes the pain as sharp, pins and needles. Reportedly with recent fall at custodial. Is getting pain medication here and Dr. Castellanos consulted for futher pain mgmt, no significant improvement overnight. MRI L spine completed and showed L5 severe thecal sac compression. Discitis also noted, but no osteo evident. On IV Abx. NSGY consult noted. Lyrica increased to 100mg TID. Patient still says she's in pain. ALso getting morphine. Awaiting pain mgmt follow up. Active Medications Acetaminophen (Tylenol -) 650 mg PO Q6H PRN PRN Reason: PAIN LEVEL 1-5 Last Admin: 01/14/18 23:36 Dose: 650 mg Albuterol Sulfate (Ventolin Hfa Inhaler -) 1 puff IH Q6H PRN PRN Reason: ASTHMA Albuterol Sulfate (Ventolin Hfa Inhaler -) 2 puff IH Q6H PRN PRN Reason: ASTHMA Last Admin: 01/14/18 05:41 Dose: 2 puff Albuterol/Ipratropium (Duoneb -) 1 amp NEB RTID [facility] Last Admin: 01/16/18 07:23 Dose: 1 amp Apixaban (Eliquis -) 5 mg PO BID [facility] Last Admin: 01/15/18 22:01 Dose: 5 mg Ascorbic Acid (Vitamin C -) 500 mg PO DAILY [facility] Last Admin: 01/15/18 10:25 Dose: 500 mg Budesonide/Formoterol Fumarate (Symbicort 80/4.5mcg -) 2 puff IH BID [facility] Last Admin: 01/15/18 22:02 Dose: 2 puff Cyanocobalamin (Vitamin B12 -) 2,500 mcg PO DAILY [facility] Last Admin: 01/15/18 10:26 Dose: 2,500 mcg Docusate Sodium (Colace -) 100 mg PO TID [facility] Last Admin: 01/16/18 05:50 Dose: 100 mg Ferrous Sulfate (Feosol -) 325 mg PO DAILY [facility] Last Admin: 01/15/18 10:21 Dose: 325 mg Hydrochlorothiazide (Hctz -) 12.5 mg PO DAILY [facility] Last Admin: 01/15/18 10:21 Dose: 12.5 mg Ceftriaxone Sodium 1 gm/ (Dextrose) 50 mls @ 100 mls/hr IVPB DAILY [facility] PRN Reason: Protocol Last Admin: 01/15/18 10:23 Dose: 100 mls/hr Sodium Chloride (Normal Saline -) 1,000 mls @ 50 mls/hr IV ASDIR [facility] Last Admin: 01/15/18 19:33 Dose: 50 mls/hr Lactobacillus Acidophilus (Bacid -) 1 tab PO DAILY [facility] Last Admin: 01/15/18 10:29 Dose: 1 tab Levothyroxine Sodium (Synthroid -) 50 mcg PO ACBK [facility] Last Admin: 01/16/18 06:09 Dose: 50 mcg Losartan Potassium (Cozaar -) 50 mg PO DAILY [facility] Last Admin: 01/15/18 10:20 Dose: 50 mg Magnesium Oxide (Mag-Ox -) 400 mg PO ONCE ONE Stop: 01/16/18 08:47 Metoprolol Succinate (Toprol Xl -) 50 mg PO DAILY [facility] Last Admin: 01/15/18 10:24 Dose: 50 mg Morphine Sulfate (Morphine Sulfate) 2 mg IVPUSH Q4H PRN PRN Reason: PAIN LEVEL 6-10 Last Admin: 01/16/18 01:51 Dose: 2 mg Pantoprazole Sodium (Protonix -) 40 mg PO DAILY [facility] Last Admin: 01/15/18 10:23 Dose: 40 mg Polyethylene Glycol (Miralax (For Daily Use) -) 17 gm PO BID [facility] Last Admin: 01/15/18 22:01 Dose: 17 grams Potassium Chloride (K-Dur -) 20 meq PO ONCE ONE Stop: 01/16/18 08:47 Pramipexole Dihydrochloride (Mirapex -) 0.25 mg PO BID [facility] Last Admin: 01/15/18 22:02 Dose: 0.25 mg Pregabalin (Lyrica -) 100 mg PO TID [facility] Last Admin: 01/16/18 05:51 Dose: 100 mg Rosuvastatin Calcium (Crestor -) 10 mg PO [facility] Last Admin: 01/15/18 22:00 Dose: 10 mg Senna (Senna -) 2 tab PO HS [facility] Last Admin: 01/15/18 22:00 Dose: 2 tab Solifenacin (Vesicare -) 10 mg PO DAILY [facility] Last Admin: 01/15/18 10:25 Dose: 10 mg *Physical Exam Vital Signs Temperature 98.8 F 01/16/18 06:23 Pulse Rate 102 H 01/16/18 06:23 Respiratory Rate 20 01/16/18 06:23 Blood Pressure 139/80 01/16/18 06:23 O2 Sat by Pulse Oximetry (%) 96 01/15/18 21:00 GENERAL: +Patient acutely in pain. Awake, alert, and fully oriented HEAD: No signs of trauma, normocephalic, atraumatic EYES: PERRLA, EOMI, sclera anicteric, conjunctiva clear ENT: Auricles normal inspection, hearing grossly normal, nares patent, oropharynx clear without exudates. Moist mucosa NECK: Normal ROM, supple, no lymphadenopathy, JVD, or masses LUNGS: No distress, speaks full sentences, clear to auscultation bilaterally HEART: Regular rate and rhythm, normal S1 and S2, no murmurs, rubs or gallops, peripheral pulses normal and equal bilaterally. ABDOMEN: Soft, nontender, normoactive bowel sounds. No guarding, no rebound. No masses EXTREMITIES: +Patient acutely tender across lower back bilaterally. Strength intact. Normal inspection, Normal range of motion, no edema. No clubbing or cyanosis. NEUROLOGICAL: Cranial nerves II through XII grossly intact. Raising RLE to gravity and resistence 4+/5, LLE limited by pain 3-/5, sensation intact to LT, gait deferred SKIN: Warm, Dry, normal turgor, no rashes or lesions noted. CBCD WBC 7.0 K/mm3 (4.0-10.0) 01/16/18 06:00 RBC 3.31 M/mm3 (3.60-5.2) L 01/16/18 06:00 Hgb 10.0 GM/dL (10.7-15.3) L 01/16/18 06:00 Hct 29.0 % (32.4-45.2) L 01/16/18 06:00 MCV 87.6 fl (80-96) 01/16/18 06:00 MCHC 34.4 g/dl (32.0-36.0) 01/16/18 06:00 RDW 14.4 % (11.6-15.6) 01/16/18 06:00 Plt Count 205 K/MM3 (134-434) D 01/16/18 06:00 MPV 8.1 fl (7.5-11.1) 01/16/18 06:00 CMP Sodium 136 mmol/L (136-145) 01/16/18 06:00 Potassium 3.9 mmol/L (3.5-5.1) 01/16/18 06:00 Chloride 103 mmol/L (98-107) 01/16/18 06:00 Carbon Dioxide 27 mmol/L (21-32) 01/16/18 06:00 Anion Gap 6 (8-16) L 01/16/18 06:00 BUN 7 mg/dL (7-18) 01/16/18 06:00 Creatinine 0.3 mg/dL (0.55-1.02) L 01/16/18 06:00 Creat Clearance w eGFR > 60 (>60) 01/12/18 11:39 Calcium 7.3 mg/dL (8.5-10.1) L 01/16/18 06:00 Total Bilirubin 0.7 mg/dL (0.2-1.0) D 01/12/18 11:39 AST 22 U/L (15-37) 01/12/18 11:39 ALT 15 U/L (12-78) 01/12/18 11:39 Alkaline Phosphatase 59 U/L (45-117) 01/12/18 11:39 Total Protein 6.3 g/dl (6.4-8.2) L 01/12/18 11:39 Albumin 2.9 g/dl (3.4-5.0) L 01/12/18 11:39 Imaging Cat Scan: Report Reviewed MRI L spine reviewed Plan 77 year old female here for worsening low back pain radiating to lower extremities and inability to ambulate at home. She reported b/l lower extremity pain for past several days but for last 3-4 weeks has discomfort in her feet radiating up to her back. She also states she has ongoing low back pain and is uncomfortable appearing in bed, holding on rails on sides. She states she is not able to ambulate. She has been on Lyrica and ordered for 100mg twice daily. CT L spine completed with chronic arthritic changes noted as well as antherolisthesis. Reportedly with recent fall at custodial. MRI L spine reviewed, severe L5 thecal sac compression, NSGY consult reviewed Pain mgmt follow up pending Increased Lyrica to 100mg three times daily Also on morphine 2mg IV, Q4hrs PRN, will need to cautious with medications Physical therapy as tolerated Continue treatment of UTI, on IV Abx Hydration recommended Fall precautions
--- NOTE | 2018-01-16 10:05 | PN ---
Progress Note, Physician History of Present Illness: Awake,alert C/O low back pain Dysuria improved Temps down Afebrile - Current Medication List Current Medications: Active Medications Acetaminophen (Tylenol -) 650 mg PO Q6H PRN PRN Reason: PAIN LEVEL 1-5 Last Admin: 01/14/18 23:36 Dose: 650 mg Albuterol Sulfate (Ventolin Hfa Inhaler -) 1 puff IH Q6H PRN PRN Reason: ASTHMA Albuterol Sulfate (Ventolin Hfa Inhaler -) 2 puff IH Q6H PRN PRN Reason: ASTHMA Last Admin: 01/14/18 05:41 Dose: 2 puff Albuterol/Ipratropium (Duoneb -) 1 amp NEB RTID [facility] Last Admin: 01/16/18 07:23 Dose: 1 amp Apixaban (Eliquis -) 5 mg PO BID [facility] Last Admin: 01/15/18 22:01 Dose: 5 mg Ascorbic Acid (Vitamin C -) 500 mg PO DAILY [facility] Last Admin: 01/15/18 10:25 Dose: 500 mg Budesonide/Formoterol Fumarate (Symbicort 80/4.5mcg -) 2 puff IH BID [facility] Last Admin: 01/15/18 22:02 Dose: 2 puff Cyanocobalamin (Vitamin B12 -) 2,500 mcg PO DAILY [facility] Last Admin: 01/15/18 10:26 Dose: 2,500 mcg Docusate Sodium (Colace -) 100 mg PO TID [facility] Last Admin: 01/16/18 05:50 Dose: 100 mg Ferrous Sulfate (Feosol -) 325 mg PO DAILY [facility] Last Admin: 01/15/18 10:21 Dose: 325 mg Hydrochlorothiazide (Hctz -) 12.5 mg PO DAILY [facility] Last Admin: 01/15/18 10:21 Dose: 12.5 mg Ceftriaxone Sodium 1 gm/ (Dextrose) 50 mls @ 100 mls/hr IVPB DAILY [facility] PRN Reason: Protocol Last Admin: 01/15/18 10:23 Dose: 100 mls/hr Sodium Chloride (Normal Saline -) 1,000 mls @ 50 mls/hr IV ASDIR [facility] Last Admin: 01/15/18 19:33 Dose: 50 mls/hr Lactobacillus Acidophilus (Bacid -) 1 tab PO DAILY [facility] Last Admin: 01/15/18 10:29 Dose: 1 tab Levothyroxine Sodium (Synthroid -) 50 mcg PO ACBK [facility] Last Admin: 01/16/18 06:09 Dose: 50 mcg Losartan Potassium (Cozaar -) 50 mg PO DAILY [facility] Last Admin: 01/15/18 10:20 Dose: 50 mg Magnesium Oxide (Mag-Ox -) 400 mg PO ONCE ONE Stop: 01/16/18 08:47 Metoprolol Succinate (Toprol Xl -) 50 mg PO DAILY [facility] Last Admin: 01/15/18 10:24 Dose: 50 mg Morphine Sulfate (Morphine Sulfate) 2 mg IVPUSH Q4H PRN PRN Reason: PAIN LEVEL 6-10 Last Admin: 01/16/18 01:51 Dose: 2 mg Pantoprazole Sodium (Protonix -) 40 mg PO DAILY [facility] Last Admin: 01/15/18 10:23 Dose: 40 mg Polyethylene Glycol (Miralax (For Daily Use) -) 17 gm PO BID [facility] Last Admin: 01/15/18 22:01 Dose: 17 grams Potassium Chloride (K-Dur -) 20 meq PO ONCE ONE Stop: 01/16/18 08:47 Pramipexole Dihydrochloride (Mirapex -) 0.25 mg PO BID [facility] Last Admin: 01/15/18 22:02 Dose: 0.25 mg Pregabalin (Lyrica -) 100 mg PO TID [facility] Last Admin: 01/16/18 05:51 Dose: 100 mg Rosuvastatin Calcium (Crestor -) 10 mg PO [facility] Last Admin: 01/15/18 22:00 Dose: 10 mg Senna (Senna -) 2 tab PO [facility] Last Admin: 01/15/18 22:00 Dose: 2 tab Solifenacin (Vesicare -) 10 mg PO DAILY [facility] Last Admin: 01/15/18 10:25 Dose: 10 mg - Objective Vital Signs: Vital Signs Temperature 98.8 F 01/16/18 06:23 Pulse Rate 102 H 01/16/18 06:23 Respiratory Rate 20 01/16/18 06:23 Blood Pressure 139/80 01/16/18 06:23 O2 Sat by Pulse Oximetry (%) 96 01/15/18 21:00 Constitutional: Yes: No Distress, Obese Cardiovascular: Yes: Regular Rate and Rhythm, S1, S2 Respiratory: Yes: CTA Bilaterally Gastrointestinal: Yes: Normal Bowel Sounds, Soft, Abdomen, Obese. No: Tenderness Edema: Yes Edema: LLE: 1+, RLE: 1+ Labs: CBC, BMP 01/16/18 06:00 01/16/18 06:00 Assessment/Plan UTI E coli Discitis Fever- improved MRI images reviewed with radiologist Will discuss with Dr Ibrahim ? percutaneous disc aspiration off antibiotics with specimen for routine c/s, AFB/Fungal c/s
[2018-01-16] MEDS ORDERED: cefTRIAXone SODIUM 1 GM VIAL ONE (10:49)
[2018-01-16] MEDS ORDERED: DEXTROSE 5%-WATER - 50 ML IVPB ONE (10:49)
[2018-01-16] MEDS: LACTOBACILLUS ACIDOPHILUS 1 TABLET PO SCH (10:52)
[2018-01-16] MEDS: PANTOPRAZOLE 40 MG TABLET (FP) PO SCH (10:52)
[2018-01-16] MEDS: FERROUS SO4 325 MG TABLET (FP) PO SCH (10:52)
[2018-01-16] MEDS: CEFTRIAXONE 1 GM in DEXTROSE 5%-WATER - 50 ML IVPB SCH (10:52)
[2018-01-16] MEDS: CYANOCOBALAMIN 1,000 MCG TABLET (FP) PO SCH (10:53)
[2018-01-16] MEDS: APIXABAN 5 MG TABLET PO SCH ×2 (10:53→22:05)
[2018-01-16] MEDS: ASCORBIC ACID 500 MG TABLET (FP) PO SCH (10:53)
[2018-01-16] MEDS: PRAMIPEXOLE DIHYDROCHLORIDE 0.25 MG TABLET PO SCH ×2 (10:55→22:05)
[2018-01-16] MEDS: SOLIFENACIN SUCCINATE 5 MG TAB (FP) PO SCH (10:55)
[2018-01-16] MEDS: POLYETHYLENE GLYCOL 3350 119 GM BTL PO SCH ×2 (10:58→22:07)
[2018-01-16] MEDS: HYDROCHLOROTHIAZIDE 12.5 MG CAPSULE (FP) PO SCH (10:58)
[2018-01-16] MEDS: BUDESONIDE/FORMETEROL FUMARATE 80/4.5 mcg INHALER IH SCH ×2 (10:58→22:04)
[2018-01-16] MEDS: LOSARTAN POTASSIUM 50 MG TABLET (FP) PO SCH (10:58)
--- NOTE | 2018-01-16 11:28 | PN ---
Progress Note, Physician Chief Complaint: Pt lying flat in bed in no acute distress. Report LBP w/ radiation to LEs , pins and needles. reports very minimal relief with morphine. otherwise, denies chest pain, sob, n/v/d - Current Medication List Current Medications: Active Medications Acetaminophen (Tylenol -) 650 mg PO Q6H PRN PRN Reason: PAIN LEVEL 1-5 Last Admin: 01/14/18 23:36 Dose: 650 mg Albuterol Sulfate (Ventolin Hfa Inhaler -) 1 puff IH Q6H PRN PRN Reason: ASTHMA Albuterol Sulfate (Ventolin Hfa Inhaler -) 2 puff IH Q6H PRN PRN Reason: ASTHMA Last Admin: 01/14/18 05:41 Dose: 2 puff Albuterol/Ipratropium (Duoneb -) 1 amp NEB RTID [facility] Last Admin: 01/16/18 07:23 Dose: 1 amp Apixaban (Eliquis -) 5 mg PO BID [facility] Last Admin: 01/16/18 10:53 Dose: 5 mg Ascorbic Acid (Vitamin C -) 500 mg PO DAILY [facility] Last Admin: 01/16/18 10:53 Dose: 500 mg Budesonide/Formoterol Fumarate (Symbicort 80/4.5mcg -) 2 puff IH BID [facility] Last Admin: 01/16/18 10:58 Dose: 2 puff Cyanocobalamin (Vitamin B12 -) 2,500 mcg PO DAILY [facility] Last Admin: 01/16/18 10:53 Dose: 2,500 mcg Docusate Sodium (Colace -) 100 mg PO TID [facility] Last Admin: 01/16/18 05:50 Dose: 100 mg Ferrous Sulfate (Feosol -) 325 mg PO DAILY [facility] Last Admin: 01/16/18 10:52 Dose: 325 mg Hydrochlorothiazide (Hctz -) 12.5 mg PO DAILY [facility] Last Admin: 01/16/18 10:58 Dose: 12.5 mg Ceftriaxone Sodium 1 gm/ (Dextrose) 50 mls @ 100 mls/hr IVPB DAILY [facility] PRN Reason: Protocol Last Admin: 01/16/18 10:52 Dose: 100 mls/hr Sodium Chloride (Normal Saline -) 1,000 mls @ 50 mls/hr IV ASDIR [facility] Last Admin: 01/15/18 19:33 Dose: 50 mls/hr Lactobacillus Acidophilus (Bacid -) 1 tab PO DAILY [facility] Last Admin: 01/16/18 10:52 Dose: 1 tab Levothyroxine Sodium (Synthroid -) 50 mcg PO ACBK [facility] Last Admin: 01/16/18 06:09 Dose: 50 mcg Losartan Potassium (Cozaar -) 50 mg PO DAILY [facility] Last Admin: 01/16/18 10:58 Dose: 50 mg Metoprolol Succinate (Toprol Xl -) 50 mg PO DAILY [facility] Last Admin: 01/16/18 10:58 Dose: 50 mg Morphine Sulfate (Morphine Sulfate) 2 mg IVPUSH Q4H PRN PRN Reason: PAIN LEVEL 6-10 Last Admin: 01/16/18 01:51 Dose: 2 mg Pantoprazole Sodium (Protonix -) 40 mg PO DAILY [facility] Last Admin: 01/16/18 10:52 Dose: 40 mg Polyethylene Glycol (Miralax (For Daily Use) -) 17 gm PO BID [facility] Last Admin: 01/16/18 10:58 Dose: 17 grams Pramipexole Dihydrochloride (Mirapex -) 0.25 mg PO BID [facility] Last Admin: 01/16/18 10:55 Dose: 0.25 mg Pregabalin (Lyrica -) 100 mg PO TID [facility] Last Admin: 01/16/18 05:51 Dose: 100 mg Rosuvastatin Calcium (Crestor -) 10 mg PO HS [facility] Last Admin: 01/15/18 22:00 Dose: 10 mg Senna (Senna -) 2 tab PO [facility] Last Admin: 01/15/18 22:00 Dose: 2 tab Solifenacin (Vesicare -) 10 mg PO DAILY [facility] Last Admin: 01/16/18 10:55 Dose: 10 mg - Objective Vital Signs: Vital Signs Temperature 98.8 F 01/16/18 06:23 Pulse Rate 102 H 01/16/18 06:23 Respiratory Rate 20 01/16/18 06:23 Blood Pressure 139/80 01/16/18 06:23 O2 Sat by Pulse Oximetry (%) 96 01/15/18 21:00 Constitutional: Yes: Well Nourished, Anxious Cardiovascular: Yes: Regular Rate and Rhythm, Murmur Respiratory: Yes: WNL, Regular, CTA Bilaterally, Diminished, On Nasal O2. No: Accessory Muscle Use, Tachypnea, Wheezes Gastrointestinal: Yes: WNL, Normal Bowel Sounds, Soft. No: Distention, Tenderness Genitourinary: Yes: Incontinence Edema: No Neurological: Yes: Alert, Oriented, Numbness (LE's), Tingling Labs: CBC, BMP 01/16/18 06:00 01/16/18 06:00 - ....Imaging MRI: Report Reviewed Problem List - Problems (1) UTI (urinary tract infection) Code(s): N39.0 - URINARY TRACT INFECTION, SITE NOT SPECIFIED Qualifiers: Urinary tract infection type: site unspecified Hematuria presence: with hematuria Qualified Code(s): N39.0 - Urinary tract infection, site not specified; R31.9 - Hematuria, unspecified; R31.9 - Hematuria, unspecified (2) Leukocytosis Code(s): D72.829 - ELEVATED WHITE BLOOD CELL COUNT, UNSPECIFIED (3) Fall Code(s): W19.XXXA - UNSPECIFIED FALL, INITIAL ENCOUNTER (4) Low back pain Code(s): M54.5 - LOW BACK PAIN Qualifiers: Chronicity: acute Back pain laterality: bilateral (5) HLD (hyperlipidemia) Code(s): E78.5 - HYPERLIPIDEMIA, UNSPECIFIED (6) HTN (hypertension) Code(s): I10 - ESSENTIAL (PRIMARY) HYPERTENSION Qualifiers: Hypertension type: essential hypertension Qualified Code(s): I10 - Essential (primary) hypertension (7) Hypothyroid Code(s): E03.9 - HYPOTHYROIDISM, UNSPECIFIED (8) Afib Code(s): I48.91 - UNSPECIFIED ATRIAL FIBRILLATION Qualifiers: Atrial fibrillation type: chronic Qualified Code(s): I48.2 - Chronic atrial fibrillation (9) CAD (coronary artery disease) Code(s): I25.10 - ATHSCL HEART DISEASE OF [place] CORONARY ARTERY W/O ANG PCTRS (10) COPD (chronic obstructive pulmonary disease) Code(s): J44.9 - CHRONIC OBSTRUCTIVE PULMONARY DISEASE, UNSPECIFIED (11) Osteoarthritis Code(s): M19.90 - UNSPECIFIED OSTEOARTHRITIS, UNSPECIFIED SITE Qualifiers: Osteoarthritis location: spine Spinal region: cervical (12) History of breast cancer Code(s): Z85.3 - PERSONAL HISTORY OF MALIGNANT NEOPLASM OF BREAST (13) Sepsis Code(s): A41.9 - SEPSIS, UNSPECIFIED ORGANISM Assessment/Plan (1) Sepsis Assessment/Plan: Improving, secondary to UTI-ecoli Leukocytosis resolved afebrile overnight MRI-lumbar unable to r/o discitis ID consult appreciated IVF plan as below Code(s): A41.9 - SEPSIS, UNSPECIFIED ORGANISM (2) UTI (urinary tract infection) Assessment/Plan: UA+, +leuk es, +nitrite UC w/ ecoli ceftriaxone day 5, stopped per ID and plan for percut intervention, to be discussed with IR will monitor Code(s): N39.0 - URINARY TRACT INFECTION, SITE NOT SPECIFIED Qualifiers: Urinary tract infection type: site unspecified Hematuria presence: with hematuria Qualified Code(s): N39.0 - Urinary tract infection, site not specified; R31.9 - Hematuria, unspecified; R31.9 - Hematuria, unspecified (3) Leukocytosis Assessment/Plan: resolved Code(s): D72.829 - ELEVATED WHITE BLOOD CELL COUNT, UNSPECIFIED (4) Fall Assessment/Plan: s/p fall w/out loc/head trauma 2 weeks ago, mechanical coccyx/lumbar/thoracic xrays without acute fracture fall precautions Code(s): W19.XXXA - UNSPECIFIED FALL, INITIAL ENCOUNTER (5) Low back pain Assessment/Plan: worsening low back pain w/ radiation to LE's +numbness/tingling of LE's lumbar CT without acute findings MRI- severe thecal compression, concerns for discitis tylenol/ morphine/lyrica PT neuro following pain management following- reassess Code(s): M54.5 - LOW BACK PAIN Qualifiers: Chronicity: acute Back pain laterality: bilateral (6) HLD (hyperlipidemia) Assessment/Plan: chronic continue crestor Code(s): E78.5 - HYPERLIPIDEMIA, UNSPECIFIED (7) HTN (hypertension) Assessment/Plan: controlled continue hct/metoprolol Code(s): I10 - ESSENTIAL (PRIMARY) HYPERTENSION Qualifiers: Hypertension type: essential hypertension Qualified Code(s): I10 - Essential (primary) hypertension (8) Hypothyroid Assessment/Plan: chronic continue levothyroxine Code(s): E03.9 - HYPOTHYROIDISM, UNSPECIFIED (9) Afib Assessment/Plan: controlled continue metoprolol/ eliquis Code(s): I48.91 - UNSPECIFIED ATRIAL FIBRILLATION Qualifiers: Atrial fibrillation type: chronic Qualified Code(s): I48.2 - Chronic atrial fibrillation (10) CAD (coronary artery disease) Assessment/Plan: stable continue statin Code(s): I25.10 - ATHSCL HEART DISEASE OF [place] CORONARY ARTERY W/O ANG PCTRS (11) COPD (chronic obstructive pulmonary disease) Assessment/Plan: chronic continue current management Code(s): J44.9 - CHRONIC OBSTRUCTIVE PULMONARY DISEASE, UNSPECIFIED (12) Osteoarthritis Assessment/Plan: chronic Tylenol PT Code(s): M19.90 - UNSPECIFIED OSTEOARTHRITIS, UNSPECIFIED SITE Qualifiers: Osteoarthritis location: spine Spinal region: cervical (13) History of breast cancer Assessment/Plan: s/p chemp, xrt, left partial mastectomy Code(s): Z85.3 - PERSONAL HISTORY OF MALIGNANT NEOPLASM OF BREAST
[2018-01-16] MEDS: ACETAMINOPHEN 325 MG TABLET (FP) PO PRN (13:23)
[2018-01-16] MEDS: SODIUM CHLORIDE 1,000 ML IV SCH ×2 (15:18→16:54)
[2018-01-16] MEDS ORDERED: PT OWN MED DRAWER 7, Y5N ONE (21:10)
[2018-01-16] MEDS: ROSUVASTATIN CA 10 MG TABLET (FP) PO SCH (22:05)
[2018-01-16] MEDS: SENNOSIDES 8.6MG TABLET (FP) PO SCH (22:05)
[2018-01-17] MEDS: morphine SULFATE 4 MG/ML VIAL IVPUSH PRN ×4 (00:36→21:57)
[2018-01-17] MEDS: ACETAMINOPHEN 325 MG TABLET (FP) PO PRN ×2 (03:28→14:01)
[2018-01-17] MEDS: LEVOTHYROXINE NA 50 MCG TABLET (FP) PO SCH (06:33)
[2018-01-17] MEDS: DOCUSATE SODIUM 100 MG CAPSULE (FP) PO SCH ×3 (06:33→21:54)
[2018-01-17] MEDS: PREGABALIN 50 MG CAPSULE PO SCH ×3 (06:33→21:56)
[2018-01-17] MEDS: ALBUTEROL SO4 2.5/IPRATROPIUM 0.5 INH SOL 3 ML VIAL.NEB. NEB SCH ×2 (07:20→14:26)
[2018-01-17 07:31] LABS: BASO % 0.3 % (0-2.0); EOS % 2.5 % (0-4.5); HEMATOCRIT 30.2 % (32.4-45.2); HEMOGLOBIN 10.4 GM/dL (10.7-15.3); MCH 30.2 pg (25.7-33.7); MCHC 34.5 g/dl (32.0-36.0); MEAN CELL VOLUME 87.6 fl (80-96); MEAN PLT VOLUME 7.5 fl (7.5-11.1); MONO % 12.1 % (3.8-10.2); NEUT % 67.1 % (42.8-82.8); PLATELET COUNT 256 K/MM3 (134-434); RBC 3.44 M/mm3 (3.60-5.2); RDW 14.5 % (11.6-15.6)
[2018-01-17] MEDS ORDERED: PT OWN MED DRAWER 7, Y5N ONE ×2 (07:51→09:09)
[2018-01-17 08:22] LABS: ANION GAP 6 (8-16); BLOOD UREA NITROGEN 8 mg/dL (7-18); CALCIUM 8.3 mg/dL (8.5-10.1); CHLORIDE 97 mmol/L (98-107); CO2 30 mmol/L (21-32); GLUCOSE,RANDOM 94 mg/dL (74-106); POTASSIUM 4.5 mmol/L (3.5-5.1); SODIUM 133 mmol/L (136-145)
[2018-01-17 08:24] LABS: CREATININE 0.4 mg/dL (0.55-1.02); PHOSPHOROUS 3.4 mg/dL (2.5-4.9)
[2018-01-17] MEDS: PANTOPRAZOLE 40 MG TABLET (FP) PO SCH (09:23)
[2018-01-17] MEDS: ASCORBIC ACID 500 MG TABLET (FP) PO SCH (09:23)
[2018-01-17] MEDS: CYANOCOBALAMIN 1,000 MCG TABLET (FP) PO SCH (09:23)
[2018-01-17] MEDS: FERROUS SO4 325 MG TABLET (FP) PO SCH (09:23)
[2018-01-17] MEDS: LACTOBACILLUS ACIDOPHILUS 1 TABLET PO SCH (09:23)
[2018-01-17] MEDS: APIXABAN 5 MG TABLET PO SCH ×2 (09:24→21:55)
[2018-01-17] MEDS: SOLIFENACIN SUCCINATE 5 MG TAB (FP) PO SCH (09:24)
[2018-01-17] MEDS: BUDESONIDE/FORMETEROL FUMARATE 80/4.5 mcg INHALER IH SCH ×2 (09:25→21:56)
[2018-01-17] MEDS: POLYETHYLENE GLYCOL 3350 119 GM BTL PO SCH ×2 (09:25→21:55)
[2018-01-17] MEDS: PRAMIPEXOLE DIHYDROCHLORIDE 0.25 MG TABLET PO SCH ×2 (09:25→21:52)
[2018-01-17] MEDS: LOSARTAN POTASSIUM 50 MG TABLET (FP) PO SCH (09:31)
[2018-01-17] MEDS: HYDROCHLOROTHIAZIDE 12.5 MG CAPSULE (FP) PO SCH (09:31)
--- NOTE | 2018-01-17 10:18 | PN ---
Progress Note (short form) - Note Progress Note: c/o back pain radiating down her L leg. as per RN she requests pain medication is very lethargic afterwards and sleeps most of the day. deneis Cp, SOB, fever, chills, N/V/C/D Current Medications Generic Name Dose Route Start Last Admin Trade Name Freq PRN Reason Stop Dose Admin Acetaminophen 650 mg 01/13/18 09:42 01/17/18 03:28 Tylenol - PO 650 mg Q6H PRN Administration PAIN LEVEL 1-5 Albuterol Sulfate 1 puff 01/12/18 16:55 Ventolin Hfa Inhaler - IH Q6H PRN ASTHMA Albuterol Sulfate 2 puff 01/12/18 18:20 01/14/18 05:41 Ventolin Hfa Inhaler - IH 2 puff Q6H PRN Administration ASTHMA Albuterol/Ipratropium 1 amp 01/12/18 20:00 01/16/18 20:30 Duoneb - NEB 1 amp RTID NICOLE Administration Apixaban 5 mg 01/12/18 22:00 01/17/18 09:24 Eliquis - PO 5 mg BID NICOLE Administration Ascorbic Acid 500 mg 01/13/18 10:00 01/17/18 09:23 Vitamin C - PO 500 mg DAILY NICOLE Administration Budesonide/Formoterol Fumarate 2 puff 01/12/18 22:00 01/17/18 09:25 Symbicort 80/4.5mcg - IH 2 puff BID NICOLE Administration Cyanocobalamin 2,500 mcg 01/13/18 10:00 01/17/18 09:23 Vitamin B12 - PO 2,500 mcg DAILY NICOLE Administration Docusate Sodium 100 mg 01/14/18 14:00 01/17/18 06:33 Colace - PO 100 mg TID NICOLE Administration Ferrous Sulfate 325 mg 01/13/18 10:00 01/17/18 09:23 Feosol - PO 325 mg DAILY NICOLE Administration Hydrochlorothiazide 12.5 mg 01/13/18 10:00 01/17/18 09:31 Hctz - PO 12.5 mg DAILY NICOLE Administration Sodium Chloride 1,000 mls @ 50 mls/hr 01/13/18 16:30 01/16/18 16:54 Normal Saline - IV Not Given ASDIR NICOLE Lactobacillus Acidophilus 1 tab 01/14/18 10:45 01/17/18 09:23 Bacid - PO 1 tab DAILY NICOLE Administration Levothyroxine Sodium 50 mcg 01/13/18 07:00 01/17/18 06:33 Synthroid - PO 50 mcg ACBK NICOLE Administration Losartan Potassium 50 mg 01/13/18 10:00 01/17/18 09:31 Cozaar - PO 50 mg DAILY NICOLE Administration Metoprolol Succinate 50 mg 01/13/18 10:00 01/17/18 09:31 Toprol Xl - PO 50 mg DAILY NICOLE Administration Morphine Sulfate 2 mg 01/13/18 11:34 01/17/18 09:22 Morphine Sulfate IVPUSH 2 mg Q4H PRN Administration PAIN LEVEL 6-10 Pantoprazole Sodium 40 mg 01/13/18 10:00 01/17/18 09:23 Protonix - PO 40 mg DAILY NICOLE Administration Polyethylene Glycol 17 gm 01/14/18 10:30 01/17/18 09:25 Miralax (For Daily Use) - PO 17 grams BID NICOLE Administration Pramipexole Dihydrochloride 0.25 mg 01/12/18 22:00 01/17/18 09:25 Mirapex - PO 0.25 mg BID NICOLE Administration Pregabalin 100 mg 01/15/18 15:15 01/17/18 06:33 Lyrica - PO 100 mg TID NICOLE Administration Rosuvastatin Calcium 10 mg 01/12/18 22:00 01/16/18 22:05 Crestor - PO 10 mg HS NICOLE Administration Senna 2 tab 01/14/18 22:00 01/16/18 22:05 Senna - PO 2 tab HS NICOLE Administration Solifenacin 10 mg 01/13/18 10:00 01/17/18 09:24 Vesicare - PO 10 mg DAILY NICOLE Administration Last Vital Signs Temp Pulse Resp BP Pulse Ox 98.5 F 77 18 131/74 98 01/17/18 06:00 01/17/18 06:00 01/17/18 06:00 01/17/18 06:00 01/16/18 21:00 General NAD, resting comfortable CV S1 S2 RRR no murmur/rub/gallop Lungs CTA B/L no wheezing/rales/rhnchi ABdomen soft NT/ND obese Extremities no pedal edema Back no spine point tenderness, some muscular spasm on the L lumbar region. refuses to move to cooperate with exam CBCD WBC 7.0 K/mm3 (4.0-10.0) 01/17/18 06:00 RBC 3.44 M/mm3 (3.60-5.2) L 01/17/18 06:00 Hgb 10.4 GM/dL (10.7-15.3) L 01/17/18 06:00 Hct 30.2 % (32.4-45.2) L 01/17/18 06:00 MCV 87.6 fl (80-96) 01/17/18 06:00 MCHC 34.5 g/dl (32.0-36.0) 01/17/18 06:00 RDW 14.5 % (11.6-15.6) 01/17/18 06:00 Plt Count 256 K/MM3 (134-434) D 01/17/18 06:00 MPV 7.5 fl (7.5-11.1) 01/17/18 06:00 CMP Sodium 133 mmol/L (136-145) L 01/17/18 06:00 Potassium 4.5 mmol/L (3.5-5.1) 01/17/18 06:00 Chloride 97 mmol/L (98-107) L 01/17/18 06:00 Carbon Dioxide 30 mmol/L (21-32) 01/17/18 06:00 Anion Gap 6 (8-16) L 01/17/18 06:00 BUN 8 mg/dL (7-18) 01/17/18 06:00 Creatinine 0.4 mg/dL (0.55-1.02) L 01/17/18 06:00 Creat Clearance w eGFR > 60 (>60) 01/12/18 11:39 Calcium 8.3 mg/dL (8.5-10.1) L 01/17/18 06:00 Total Bilirubin 0.7 mg/dL (0.2-1.0) D 01/12/18 11:39 AST 22 U/L (15-37) 01/12/18 11:39 ALT 15 U/L (12-78) 01/12/18 11:39 Alkaline Phosphatase 59 U/L (45-117) 01/12/18 11:39 Total Protein 6.3 g/dl (6.4-8.2) L 01/12/18 11:39 Albumin 2.9 g/dl (3.4-5.0) L 01/12/18 11:39 MRI with maureen- L4-5 and L5-S1 disc enhancement and facet enhancement, circumferential epidural enhancement; R L2-3 intraspinal facet cyst with mass effect L5-S1 spondylolisthesis and stenosis; discitis/osteomyelitis/facet infection A/P 78yo F wtih PMH dyslipidemia, HTN, hypothyroid, afib on eliquis, CAD, COPD, Breast ca s/p masectromy presented to the ER with back pain with dysuria. was found to be septic with UTI 1. Sepsis due to Ecoli UTI- afebrile now >24H. leukocytosis resolved. abx now completed. ceftriaxone x3days 2. Low back pain- concern for epidural infection or spondylitis. elevated ESR/ CRP. observing off abx. claims medication is not controlled however is found sleeping for the day. will try lidoderm patch to optimize pain. plan for CT guided bopsy. will need to hold eliquis prior to surgery. Neuro and NSG on board. pain improved. cont lyrica and morphine prn breakthrough pain. will hold on increasing narcotics at this time in light of mental status. 3. hyponatremia- d/c HCTZ. monitor. 4. dyslipidemia- statin 5. HTN- controlled. HCTZ d/c. cont current management 6. hypothyroid- LT4 7. afib on eliquis- controlled. cont metoprolol/eliquis 8. CAD 9. COPD 10. breast ca 11. DVT ppx- elqiuis. will need to be held prior to surgery. Visit type - Emergency Visit Emergency Visit: Yes ED Registration Date: 01/13/18 Care time: The patient presented to the Emergency Department on the above date and was hospitalized for further evaluation of their emergent condition. - New Patient This patient is new to me today: Yes Date on this admission: 01/17/18 - Critical Care Critical Care patient: No - Discharge Referral Referred to [facility] Med P.C.: No
--- NOTE | 2018-01-17 10:52 | PN ---
Progress Note (short form) - Note Progress Note: NEUROSURGERY c/o worsening low back pain radiating to L > R hip/thigh PE: Tmax 99, now 98.5, VSS HEENT- NC, AT; Neck- supple; Cor- RR; Lungs- CTA; Abd- obese, benign; Ext- no sign of DVT CN- intact II-XII; Motor- 4+/5 throughout except L DF 4- and L DF 4; Sensation- decreased L L4-5-S1 to PP/LT/vibration WBC 6.8; ESR 101; CRP 27.3 Urine Cx- E Coli; Blood Cx- negative to date LS CT- B L5 spondylolysis with L5-S1 spondylolisthesis, T12/L1 chronic wedging LS spine MRI- Heterogenous vertebral signals; L5-S1 DDD/spondylolisthesis; L5- S1 foramenal stenosis R > L; epidural fat slightly worsening MRI with maureen- L4-5 and L5-S1 disc enhancement and facet enhancement, circumferential epidural enhancement; R L2-3 intraspinal facet cyst with mass effect L5-S1 spondylolisthesis and stenosis; discitis/osteomyelitis/facet infection Clinical L > R L5 radiculopathy d/w ID yesterday Concur with CT guided biopsy though concerned about infection status off abx PT aware bx may not yield positive results since she did receive ceftrixone for 2-3 days previously
[2018-01-17] MEDS: LIDOCAINE 5% TOPICAL PATCH TP SCH (14:02)
--- NOTE | 2018-01-17 16:04 | PN ---
Progress Note (short form) - Note Progress Note: afebrile continues with back pain d/w Dr Castro yesterday plan for IR guided biopsy on Friday- management of eliquis per PMD for surgery Vital Signs Period Temp Pulse Resp BP Sys/Bocanegra Pulse Ox Last 24 Hr 98.1 F-98.8 F 71-79 -18 116-136/64-74 98 cor-rrr lungs clear abd soft,nt ext no edema DAWN X 4 CBC, BMP 01/17/18 06:00 01/17/18 06:00 Microbiology 01/14/18 11:25 Blood - Peripheral Venous Blood Culture - Preliminary NO GROWTH OBTAINED AFTER 48 HOURS, INCUBATION TO CONTINUE FOR 3 DAYS. 01/14/18 23:30 Blood - Peripheral Venous Blood Culture - Preliminary NO GROWTH OBTAINED AFTER 48 HOURS, INCUBATION TO CONTINUE FOR 3 DAYS. 01/12/18 11:39 Urine - Urine Clean Catch Urine Culture - Final Escherichia Coli a/p plan per d/w Dr Castro yesterday plan for IR biopsy on Friday off abx if she has fever or clinically worsens would obtain blood cultures and start vanco/cefepime
[2018-01-17] MEDS: ROSUVASTATIN CA 10 MG TABLET (FP) PO SCH (21:55)
[2018-01-17] MEDS: SENNOSIDES 8.6MG TABLET (FP) PO SCH (21:55)
[2018-01-17] MEDS: LIDOCAINE PATCH REMOVAL MC SCH ×2 (21:56→22:05)
[2018-01-18] MEDS: ACETAMINOPHEN 325 MG TABLET (FP) PO PRN (00:06)
[2018-01-18] MEDS: DOCUSATE SODIUM 100 MG CAPSULE (FP) PO SCH ×3 (05:55→22:16)
[2018-01-18] MEDS: PREGABALIN 50 MG CAPSULE PO SCH ×3 (05:55→22:16)
[2018-01-18] MEDS: morphine SULFATE 4 MG/ML VIAL IVPUSH PRN ×4 (05:56→19:10)
[2018-01-18] MEDS: LEVOTHYROXINE NA 50 MCG TABLET (FP) PO SCH (05:59)
[2018-01-18] MEDS: PANTOPRAZOLE 40 MG TABLET (FP) PO SCH (09:42)
[2018-01-18] MEDS: LIDOCAINE 5% TOPICAL PATCH TP SCH (09:42)
--- NOTE | 2018-01-18 09:42 | PN ---
Progress Note (short form) - Note Progress Note: NEUROSURGERY c/o low back pain radiating to L > R hip/thigh Off abx; for IR biopsy per ID PE: AF, VSS HEENT- NC, AT; Neck- supple; Cor- RR; Lungs- CTA; Abd- obese, benign; Ext- no sign of DVT CN- intact II-XII; Motor- 4+/5 throughout except L DF 4- and L DF 4; Sensation- decreased L L4-5-S1 to PP/LT/vibration WBC 7 Urine Cx- E Coli; Blood Cx- negative to date LS spine MRI- Heterogenous vertebral signals; L5-S1 DDD/spondylolisthesis; L5- S1 foramenal stenosis R > L; epidural signal changes MRI with maureen- L4-5 and L5-S1 disc enhancement and facet enhancement, circumferential epidural enhancement; R L2-3 intraspinal facet cyst with mass effect L5-S1 spondylolisthesis and stenosis; discitis/osteomyelitis/facet spondylitis Clinical L > R L5 radiculopathy PT aware bx may not yield positive results since she did receive ceftrixone for 2-3 days previously Decadron x1 given persistent pain
[2018-01-18] MEDS: LOSARTAN POTASSIUM 50 MG TABLET (FP) PO SCH (09:43)
[2018-01-18] MEDS: FERROUS SO4 325 MG TABLET (FP) PO SCH (09:43)
[2018-01-18] MEDS: SOLIFENACIN SUCCINATE 5 MG TAB (FP) PO SCH (09:43)
[2018-01-18] MEDS: ASCORBIC ACID 500 MG TABLET (FP) PO SCH (09:43)
[2018-01-18] MEDS: LACTOBACILLUS ACIDOPHILUS 1 TABLET PO SCH (09:43)
[2018-01-18] MEDS: PRAMIPEXOLE DIHYDROCHLORIDE 0.25 MG TABLET PO SCH ×2 (09:44→22:14)
[2018-01-18] MEDS: BUDESONIDE/FORMETEROL FUMARATE 80/4.5 mcg INHALER IH SCH ×2 (09:44→22:17)
[2018-01-18] MEDS: POLYETHYLENE GLYCOL 3350 119 GM BTL PO SCH ×2 (09:45→22:16)
[2018-01-18] MEDS: CYANOCOBALAMIN 1,000 MCG TABLET (FP) PO SCH (09:45)
[2018-01-18] MEDS ORDERED: DEXAMETHASONE SOD PHOSPHATE 4 MG/1 ML VIAL IVPUSH ONE ×2 (10:00→14:45)
[2018-01-18 10:40] LABS: CHLORIDE 97 mmol/L (98-107); POTASSIUM 4.4 mmol/L (3.5-5.1); SODIUM 136 mmol/L (136-145)
[2018-01-18 10:46] LABS: ANION GAP 6 (8-16); BLOOD UREA NITROGEN 10 mg/dL (7-18); CALCIUM 8.9 mg/dL (8.5-10.1); CO2 33 mmol/L (21-32); CREATININE 0.5 mg/dL (0.55-1.02); GLUCOSE,RANDOM 94 mg/dL (74-106)
--- NOTE | 2018-01-18 11:12 | PN ---
Physical Exam: SUBJECTIVE: Patient seen and examined. She complains of pain in her low back radiating down her left leg. OBJECTIVE: Vital Signs Period Temp Pulse Resp BP Sys/Bocanegra Pulse Ox Last 24 Hr 97.9 F-98.8 F 76-85 18-18 120-142/47-84 96 GENERAL: The patient is awake, alert, and fully oriented, in moderate distress. LUNGS: Breath sounds equal, clear to auscultation bilaterally, no wheezes, no crackles, no accessory muscle use. HEART: Regular rate and rhythm, S1, S2 without murmur, rub or gallop. ABDOMEN: Obese, soft, nontender, nondistended, normoactive bowel sounds. EXTREMITIES: 2+ pulses, warm, well-perfused, no edema. Active Medications Generic Name Dose Route Start Last Admin Trade Name Freq PRN Reason Stop Dose Admin Acetaminophen 650 mg 01/13/18 09:42 01/18/18 00:06 Tylenol - PO 650 mg Q6H PRN Administration PAIN LEVEL 1-5 Albuterol Sulfate 1 puff 01/12/18 16:55 Ventolin Hfa Inhaler - IH Q6H PRN ASTHMA Albuterol Sulfate 2 puff 01/12/18 18:20 01/14/18 05:41 Ventolin Hfa Inhaler - IH 2 puff Q6H PRN Administration ASTHMA Apixaban 5 mg 01/12/18 22:00 01/17/18 21:55 Eliquis - PO 5 mg BID NICOLE Administration Ascorbic Acid 500 mg 01/13/18 10:00 01/18/18 09:43 Vitamin C - PO 500 mg DAILY NICOLE Administration Budesonide/Formoterol Fumarate 2 puff 01/12/18 22:00 01/18/18 09:44 Symbicort 80/4.5mcg - IH 2 puff BID NICLOE Administration Cyanocobalamin 2,500 mcg 01/13/18 10:00 01/18/18 09:45 Vitamin B12 - PO 2,500 mcg DAILY NICOLE Administration Docusate Sodium 100 mg 01/14/18 14:00 01/18/18 05:55 Colace - PO 100 mg TID NCIOLE Administration Ferrous Sulfate 325 mg 01/13/18 10:00 01/18/18 09:43 Feosol - PO 325 mg DAILY NICOLE Administration Lactobacillus Acidophilus 1 tab 01/14/18 10:45 01/18/18 09:43 Bacid - PO 1 tab DAILY NICOLE Administration Levothyroxine Sodium 50 mcg 01/13/18 07:00 01/18/18 05:59 Synthroid - PO 50 mcg ACBK NICOLE Administration Lidocaine 1 patch 01/17/18 11:45 01/18/18 09:42 Lidoderm Patch - TP 1 patch DAILY NICOLE Administration Losartan Potassium 50 mg 01/13/18 10:00 01/18/18 09:43 Cozaar - PO 50 mg DAILY NICOLE Administration Metoprolol Succinate 50 mg 01/13/18 10:00 01/18/18 09:43 Toprol Xl - PO 50 mg DAILY NICOLE Administration Miscellaneous 1 each 01/17/18 22:00 01/17/18 22:05 Lidoderm Patch Removal MC Not Given DAILY@2200 NICOLE Morphine Sulfate 2 mg 01/13/18 11:34 01/18/18 09:41 Morphine Sulfate IVPUSH 2 mg Q4H PRN Administration PAIN LEVEL 6-10 Pantoprazole Sodium 40 mg 01/13/18 10:00 01/18/18 09:42 Protonix - PO 40 mg DAILY NICOLE Administration Polyethylene Glycol 17 gm 01/14/18 10:30 01/18/18 09:45 Miralax (For Daily Use) - PO 17 grams BID NICOLE Administration Pramipexole Dihydrochloride 0.25 mg 01/12/18 22:00 01/18/18 09:44 Mirapex - PO 0.25 mg BID NICOLE Administration Pregabalin 100 mg 01/15/18 15:15 01/18/18 05:55 Lyrica - PO 100 mg TID NICOLE Administration Rosuvastatin Calcium 10 mg 01/12/18 22:00 01/17/18 21:55 Crestor - PO 10 mg HS NICOLE Administration Senna 2 tab 01/14/18 22:00 01/17/18 21:55 Senna - PO 2 tab HS NICOLE Administration Solifenacin 10 mg 01/13/18 10:00 01/18/18 09:43 Vesicare - PO 10 mg DAILY NICOLE Administration ASSESSMENT/PLAN: This is a 78 year old woman with a history of HTN, hyperlipidemia, hypothyroidism, atrial fib, CAD, COPD, breast cancer, mastectomy who presented to the ED with dysuria and back pain. 1. E. coli UTI - Completed course of Rocephin 2. Low back pain, possible discitis, osteomyelitis, facet spondylitis - Continue Lidoderm patch, morphine as needed, Lyrica - Decadron x 1 ordered - Plan for biopsy by IR tomorrow - Eliabby on hold 3. Hyponatremia - Improved - HCTZ held 4. Hyperlipidemia - Continue Crestor 5. HTN - HCTZ held secondary to hyponatremia - Continue Cozaar, Toprol XL 6. Hypothyroidism - Continue Synthroid 7. History of atrial fibrillation - Currently in sinus rhythm - Continue Toprol XL - Eliquis held for procedure tomorrow 8. CAD - Continue Toprol XL, Crestor 9. COPD - Stable - Continue Symbicort, albuterol as needed 10. History of breast cancer, mastectomy 11. Obesity with BMI 34.2 Visit type - Emergency Visit Emergency Visit: Yes ED Registration Date: 01/13/18 Care time: The patient presented to the Emergency Department on the above date and was hospitalized for further evaluation of their emergent condition. - New Patient This patient is new to me today: Yes Date on this admission: 01/18/18 - Critical Care Critical Care patient: No - Discharge Referral Referred to [facility] Med P.C.: No
--- NOTE | 2018-01-18 12:34 | PN ---
Progress Note (short form) - Note Progress Note: Neurology History of Present Illness: 77 year old female here for worsening low back pain radiating to lower extremities and inability to ambulate at home. She reported b/l lower extremity pain for past several days but for last 3-4 weeks has discomfort in her feet radiating up to her back. She also states she has ongoing low back pain and is uncomfortable appearing in bed, holding on rails on sides. She states she is not able to ambulate. She has been on Lyrica and ordered for 100mg twice daily. CT L spine completed with chronic arthritic changes noted as well as antherolisthesis. She described the pain as sharp, pins and needles. Reportedly with recent [facility] Is getting pain medication here and Dr. Castellanos consulted for futher pain mgmt, no follow up note. MRI L spine completed and showed L5 severe thecal sac compression. Discitis also noted, but no osteo evident. NSGY consulted. Lyrica increased to 100mg TID. Plan is for biopsy to evaluate underlying discitis. Getting morphine and says she's still in pain but comfortable appearing and notes indicate she is sleeping throughout the day. Not moving lower extremities with significant strenght. Active Medications Acetaminophen (Tylenol -) 650 mg PO Q6H PRN PRN Reason: PAIN LEVEL 1-5 Last Admin: 01/18/18 00:06 Dose: 650 mg Albuterol Sulfate (Ventolin Hfa Inhaler -) 1 puff IH Q6H PRN PRN Reason: ASTHMA Albuterol Sulfate (Ventolin Hfa Inhaler -) 2 puff IH Q6H PRN PRN Reason: ASTHMA Last Admin: 01/14/18 05:41 Dose: 2 puff Apixaban (Eliquis -) 5 mg PO BID [facility] Last Admin: 01/17/18 21:55 Dose: 5 mg Ascorbic Acid (Vitamin C -) 500 mg PO DAILY [facility] Last Admin: 01/18/18 09:43 Dose: 500 mg Budesonide/Formoterol Fumarate (Symbicort 80/4.5mcg -) 2 puff IH BID [facility] Last Admin: 01/18/18 09:44 Dose: 2 puff Cyanocobalamin (Vitamin B12 -) 2,500 mcg PO DAILY [facility] Last Admin: 01/18/18 09:45 Dose: 2,500 mcg Docusate Sodium (Colace -) 100 mg PO TID [facility] Last Admin: 01/18/18 05:55 Dose: 100 mg Ferrous Sulfate (Feosol -) 325 mg PO DAILY [facility] Last Admin: 01/18/18 09:43 Dose: 325 mg Lactobacillus Acidophilus (Bacid -) 1 tab PO DAILY [facility] Last Admin: 01/18/18 09:43 Dose: 1 tab Levothyroxine Sodium (Synthroid -) 50 mcg PO ACBK [facility] Last Admin: 01/18/18 05:59 Dose: 50 mcg Lidocaine (Lidoderm Patch -) 1 patch TP DAILY [facility] Last Admin: 01/18/18 09:42 Dose: 1 patch Losartan Potassium (Cozaar -) 50 mg PO DAILY [facility] Last Admin: 01/18/18 09:43 Dose: 50 mg Metoprolol Succinate (Toprol Xl -) 50 mg PO DAILY [facility] Last Admin: 01/18/18 09:43 Dose: 50 mg Miscellaneous (Lidoderm Patch Removal) 1 each MC DAILY@2200 [facility] Last Admin: 01/17/18 22:05 Dose: Not Given Morphine Sulfate (Morphine Sulfate) 3 mg IVPUSH Q4H PRN PRN Reason: PAIN LEVEL 6-10 Pantoprazole Sodium (Protonix -) 40 mg PO DAILY [facility] Last Admin: 01/18/18 09:42 Dose: 40 mg Polyethylene Glycol (Miralax (For Daily Use) -) 17 gm PO BID [facility] Last Admin: 01/18/18 09:45 Dose: 17 grams Pramipexole Dihydrochloride (Mirapex -) 0.25 mg PO BID [facility] Last Admin: 01/18/18 09:44 Dose: 0.25 mg Pregabalin (Lyrica -) 100 mg PO TID [facility] Last Admin: 01/18/18 05:55 Dose: 100 mg Rosuvastatin Calcium (Crestor -) 10 mg PO HS [facility] Last Admin: 01/17/18 21:55 Dose: 10 mg Senna (Senna -) 2 tab PO HS [facility] Last Admin: 01/17/18 21:55 Dose: 2 tab Solifenacin (Vesicare -) 10 mg PO DAILY [facility] Last Admin: 01/18/18 09:43 Dose: 10 mg *Physical Exam Vital Signs Temperature 98.3 F 01/18/18 06:01 Pulse Rate 76 01/18/18 06:01 Respiratory Rate 18 01/18/18 06:01 Blood Pressure 130/69 01/18/18 06:01 O2 Sat by Pulse Oximetry (%) 96 01/17/18 21:00 GENERAL: +Patient acutely in pain. Awake, alert, and fully oriented HEAD: No signs of trauma, normocephalic, atraumatic EYES: PERRLA, EOMI, sclera anicteric, conjunctiva clear ENT: Auricles normal inspection, hearing grossly normal, nares patent, oropharynx clear without exudates. Moist mucosa NECK: Normal ROM, supple, no lymphadenopathy, JVD, or masses LUNGS: No distress, speaks full sentences, clear to auscultation bilaterally HEART: Regular rate and rhythm, normal S1 and S2, no murmurs, rubs or gallops, peripheral pulses normal and equal bilaterally. ABDOMEN: Soft, nontender, normoactive bowel sounds. No guarding, no rebound. No masses EXTREMITIES: +Patient acutely tender across lower back bilaterally. Strength intact. Normal inspection, Normal range of motion, no edema. No clubbing or cyanosis. NEUROLOGICAL: Cranial nerves II through XII grossly intact. Raising RLE to gravity and resistence 4+/5, LLE limited by pain 2+ to 3-/5, sensation intact to LT, gait deferred SKIN: Warm, Dry, normal turgor, no rashes or lesions noted. 01/17/18 06:00 01/18/18 10:05 Imaging Cat Scan: Report Reviewed MRI L spine reviewed Plan 77 year old female here for worsening low back pain radiating to lower extremities and inability to ambulate at home. She reported b/l lower extremity pain for past several days but for last 3-4 weeks has discomfort in her feet radiating up to her back. She also states she has ongoing low back pain and is uncomfortable appearing in bed, holding on rails on sides. She states she is not able to ambulate. She has been on Lyrica and ordered for 100mg twice daily. CT L spine completed with chronic arthritic changes noted as well as antherolisthesis. Reportedly with recent fall at [facility] MRI L spine reviewed, severe L5 thecal sac compression, NSGY consult reviewed Increased Lyrica to 100mg three times daily Also on morphine 2mg IV, Q4hrs PRN, will need to cautious with medications Notes that she is sleepy during the day Defer to pain mgmt regarding further adjustments Physical therapy as tolerated For biopsy tomorrow Hydration recommended Fall precautions
[2018-01-18] MEDS: ROSUVASTATIN CA 10 MG TABLET (FP) PO SCH (22:16)
[2018-01-18] MEDS: SENNOSIDES 8.6MG TABLET (FP) PO SCH (22:16)
[2018-01-18] MEDS: LIDOCAINE PATCH REMOVAL MC SCH (22:16)
[2018-01-19] MEDS ORDERED: PT OWN MED DRAWER 7, Y5N ONE ×3 (02:23→11:51)
[2018-01-19] MEDS: PREGABALIN 50 MG CAPSULE PO SCH ×3 (06:26→21:20)
[2018-01-19] MEDS: DOCUSATE SODIUM 100 MG CAPSULE (FP) PO SCH ×3 (06:26→21:21)
[2018-01-19] MEDS: LEVOTHYROXINE NA 50 MCG TABLET (FP) PO SCH (06:26)
[2018-01-19] MEDS: morphine SULFATE 4 MG/ML VIAL IVPUSH PRN ×3 (07:00→22:16)
--- NOTE | 2018-01-19 10:20 | PN ---
Progress Note, Physician Chief Complaint: Pt lying in bed in no acute distress. Doing crossword puzzle, appears comfortable. Report / LBP w/ radiation to LEs , pins and needles, unable to move per pt. otherwise, denies chest pain, sob, n/v/d - Current Medication List Current Medications: Active Medications Acetaminophen (Tylenol -) 650 mg PO Q6H PRN PRN Reason: PAIN LEVEL 1-5 Last Admin: 01/18/18 00:06 Dose: 650 mg Albuterol Sulfate (Ventolin Hfa Inhaler -) 1 puff IH Q6H PRN PRN Reason: ASTHMA Albuterol Sulfate (Ventolin Hfa Inhaler -) 2 puff IH Q6H PRN PRN Reason: ASTHMA Last Admin: 01/14/18 05:41 Dose: 2 puff Apixaban (Eliquis -) 5 mg PO BID [facility] Last Admin: 01/17/18 21:55 Dose: 5 mg Ascorbic Acid (Vitamin C -) 500 mg PO DAILY [facility] Last Admin: 01/18/18 09:43 Dose: 500 mg Budesonide/Formoterol Fumarate (Symbicort 80/4.5mcg -) 2 puff IH BID [facility] Last Admin: 01/18/18 22:17 Dose: 2 puff Cyanocobalamin (Vitamin B12 -) 2,500 mcg PO DAILY [facility] Last Admin: 01/18/18 09:45 Dose: 2,500 mcg Docusate Sodium (Colace -) 100 mg PO TID [facility] Last Admin: 01/19/18 06:26 Dose: 100 mg Ferrous Sulfate (Feosol -) 325 mg PO DAILY [facility] Last Admin: 01/18/18 09:43 Dose: 325 mg Lactobacillus Acidophilus (Bacid -) 1 tab PO DAILY [facility] Last Admin: 01/18/18 09:43 Dose: 1 tab Levothyroxine Sodium (Synthroid -) 50 mcg PO ACBK [facility] Last Admin: 01/19/18 06:26 Dose: 50 mcg Lidocaine (Lidoderm Patch -) 1 patch TP DAILY [facility] Last Admin: 01/18/18 09:42 Dose: 1 patch Losartan Potassium (Cozaar -) 50 mg PO DAILY [facility] Last Admin: 01/18/18 09:43 Dose: 50 mg Metoprolol Succinate (Toprol Xl -) 50 mg PO DAILY [facility] Last Admin: 01/18/18 09:43 Dose: 50 mg Miscellaneous (Lidoderm Patch Removal) 1 each MC DAILY@2200 [facility] Last Admin: 01/18/18 22:16 Dose: 1 each Morphine Sulfate (Morphine Sulfate) 3 mg IVPUSH Q4H PRN PRN Reason: PAIN LEVEL 6-10 Last Admin: 01/19/18 07:00 Dose: 3 mg Pantoprazole Sodium (Protonix -) 40 mg PO DAILY [facility] Last Admin: 01/18/18 09:42 Dose: 40 mg Polyethylene Glycol (Miralax (For Daily Use) -) 17 gm PO BID [facility] Last Admin: 01/18/18 22:16 Dose: 17 grams Pramipexole Dihydrochloride (Mirapex -) 0.25 mg PO BID [facility] Last Admin: 01/18/18 22:14 Dose: 0.25 mg Pregabalin (Lyrica -) 100 mg PO TID [facility] Last Admin: 01/19/18 06:26 Dose: 100 mg Rosuvastatin Calcium (Crestor -) 10 mg PO [facility] Last Admin: 01/18/18 22:16 Dose: 10 mg Senna (Senna -) 2 tab PO [facility] Last Admin: 01/18/18 22:16 Dose: 2 tab Solifenacin (Vesicare -) 10 mg PO DAILY [facility] Last Admin: 01/18/18 09:43 Dose: 10 mg - Objective Vital Signs: Vital Signs Temperature 98.1 F 01/19/18 06:00 Pulse Rate 75 01/19/18 06:00 Respiratory Rate 20 01/19/18 06:00 Blood Pressure 125/79 01/19/18 06:00 O2 Sat by Pulse Oximetry (%) 96 01/18/18 20:40 Constitutional: Yes: Well Nourished, No Distress, Anxious Cardiovascular: Yes: Regular Rate and Rhythm Respiratory: Yes: WNL, Regular, CTA Bilaterally. No: Accessory Muscle Use, SOB , Tachypnea, Wheezes Gastrointestinal: Yes: WNL, Normal Bowel Sounds, Soft, Abdomen, Obese. No: Distention, Tenderness Edema: No Neurological: Yes: Alert, Oriented, Numbness (LE's), Tingling Psychiatric: Yes: WNL, Alert, Oriented Labs: CBC, BMP 01/17/18 06:00 01/18/18 10:05 Problem List - Problems (1) UTI (urinary tract infection) Code(s): N39.0 - URINARY TRACT INFECTION, SITE NOT SPECIFIED Qualifiers: Urinary tract infection type: site unspecified Hematuria presence: with hematuria Qualified Code(s): N39.0 - Urinary tract infection, site not specified; R31.9 - Hematuria, unspecified; R31.9 - Hematuria, unspecified (2) Leukocytosis Code(s): D72.829 - ELEVATED WHITE BLOOD CELL COUNT, UNSPECIFIED (3) Fall Code(s): W19.XXXA - UNSPECIFIED FALL, INITIAL ENCOUNTER (4) Low back pain Code(s): M54.5 - LOW BACK PAIN Qualifiers: Chronicity: acute Back pain laterality: bilateral (5) HLD (hyperlipidemia) Code(s): E78.5 - HYPERLIPIDEMIA, UNSPECIFIED (6) HTN (hypertension) Code(s): I10 - ESSENTIAL (PRIMARY) HYPERTENSION Qualifiers: Hypertension type: essential hypertension Qualified Code(s): I10 - Essential (primary) hypertension (7) Hypothyroid Code(s): E03.9 - HYPOTHYROIDISM, UNSPECIFIED (8) Afib Code(s): I48.91 - UNSPECIFIED ATRIAL FIBRILLATION Qualifiers: Atrial fibrillation type: chronic Qualified Code(s): I48.2 - Chronic atrial fibrillation (9) CAD (coronary artery disease) Code(s): I25.10 - ATHSCL HEART DISEASE OF [place] CORONARY ARTERY W/O ANG PCTRS (10) COPD (chronic obstructive pulmonary disease) Code(s): J44.9 - CHRONIC OBSTRUCTIVE PULMONARY DISEASE, UNSPECIFIED (11) Osteoarthritis Code(s): M19.90 - UNSPECIFIED OSTEOARTHRITIS, UNSPECIFIED SITE Qualifiers: Osteoarthritis location: spine Spinal region: cervical (12) History of breast cancer Code(s): Z85.3 - PERSONAL HISTORY OF MALIGNANT NEOPLASM OF BREAST (13) Sepsis Code(s): A41.9 - SEPSIS, UNSPECIFIED ORGANISM Assessment/Plan (1) Sepsis Assessment/Plan: resolved Code(s): A41.9 - SEPSIS, UNSPECIFIED ORGANISM (2) UTI (urinary tract infection) Assessment/Plan: ecoli-uti ceftriaxone x 5days off antibx for fna-lumbar/sacral by IR ID following Code(s): N39.0 - URINARY TRACT INFECTION, SITE NOT SPECIFIED Qualifiers: Urinary tract infection type: site unspecified Hematuria presence: with hematuria Qualified Code(s): N39.0 - Urinary tract infection, site not specified; R31.9 - Hematuria, unspecified; R31.9 - Hematuria, unspecified (3) Leukocytosis Assessment/Plan: resolved Code(s): D72.829 - ELEVATED WHITE BLOOD CELL COUNT, UNSPECIFIED (4) Fall Assessment/Plan: s/p fall w/out loc/head trauma 2 weeks ago, mechanical coccyx/lumbar/thoracic xrays without acute fracture fall precautions Code(s): W19.XXXA - UNSPECIFIED FALL, INITIAL ENCOUNTER (5) Low back pain Assessment/Plan: worsening low back pain w/ radiation to LE's inability to ambulate lumbar CT without acute findings MRI- severe thecal compression, concerns for discitis case discussed with , , IR spinal aspiration today tylenol/ morphine/lyrica PT neuro following pain management following Code(s): M54.5 - LOW BACK PAIN Qualifiers: Chronicity: acute Back pain laterality: bilateral (6) HLD (hyperlipidemia) Assessment/Plan: chronic continue crestor Code(s): E78.5 - HYPERLIPIDEMIA, UNSPECIFIED (7) HTN (hypertension) Assessment/Plan: controlled continue metoprolol hct held for hyponatremia bp adequately controlled, will hold hct for now Code(s): I10 - ESSENTIAL (PRIMARY) HYPERTENSION Qualifiers: Hypertension type: essential hypertension Qualified Code(s): I10 - Essential (primary) hypertension (8) Hypothyroid Assessment/Plan: chronic continue levothyroxine Code(s): E03.9 - HYPOTHYROIDISM, UNSPECIFIED (9) Afib Assessment/Plan: controlled continue metoprolol hold eliquis for IR Code(s): I48.91 - UNSPECIFIED ATRIAL FIBRILLATION Qualifiers: Atrial fibrillation type: chronic Qualified Code(s): I48.2 - Chronic atrial fibrillation (10) CAD (coronary artery disease) Assessment/Plan: stable continue statin Code(s): I25.10 - ATHSCL HEART DISEASE OF [place] CORONARY ARTERY W/O ANG PCTRS (11) COPD (chronic obstructive pulmonary disease) Assessment/Plan: chronic continue current management Code(s): J44.9 - CHRONIC OBSTRUCTIVE PULMONARY DISEASE, UNSPECIFIED (12) Osteoarthritis Assessment/Plan: chronic Tylenol PT Code(s): M19.90 - UNSPECIFIED OSTEOARTHRITIS, UNSPECIFIED SITE Qualifiers: Osteoarthritis location: spine Spinal region: cervical (13) History of breast cancer Assessment/Plan: s/p chemp, xrt, left partial mastectomy Code(s): Z85.3 - PERSONAL HISTORY OF MALIGNANT NEOPLASM OF BREAST
--- NOTE | 2018-01-19 11:16 | PN ---
Progress Note (short form) - Note Progress Note: NEUROSURGERY Pt seen earlier c/o low back pain radiating to L > R hip/thigh Off abx PE: AF, VSS HEENT- NC, AT; Neck- supple; Cor- RR; Lungs- CTA; Abd- obese, benign; Ext- no sign of DVT CN- intact II-XII; Motor- 4+/5 throughout except L DF 4- and L DF 4; Sensation- decreased L L4-5-S1 to PP/LT/vibration WBC 7 Urine Cx- E Coli; Blood Cx- negative to date LS spine MRI- Heterogenous vertebral signals; L5-S1 DDD/spondylolisthesis; L5- S1 foramenal stenosis R > L; epidural signal changes MRI with maureen- L4-5 and L5-S1 disc enhancement and facet enhancement, circumferential epidural enhancement; R L2-3 intraspinal facet cyst with mass effect L5-S1 spondylolisthesis and stenosis; discitis/osteomyelitis/facet spondylitis Clinical L > R L5 radiculopathy For CT guided bx of facet tissues for gram stain and culture PT aware bx may not yield positive results since she did receive ceftriaxone for 2-3 days previously Restart iv abx when Bx done to include gram + coverage D/w Dr Cabezas D/w Dr Castro D/w Dr Whitfield
[2018-01-19] MEDS: LOSARTAN POTASSIUM 50 MG TABLET (FP) PO SCH (12:12)
[2018-01-19] MEDS: CYANOCOBALAMIN 1,000 MCG TABLET (FP) PO SCH (12:12)
[2018-01-19] MEDS: FERROUS SO4 325 MG TABLET (FP) PO SCH (12:12)
[2018-01-19] MEDS: ASCORBIC ACID 500 MG TABLET (FP) PO SCH (12:12)
[2018-01-19] MEDS: LIDOCAINE 5% TOPICAL PATCH TP SCH (12:13)
[2018-01-19] MEDS: LACTOBACILLUS ACIDOPHILUS 1 TABLET PO SCH (12:13)
[2018-01-19] MEDS: POLYETHYLENE GLYCOL 3350 119 GM BTL PO SCH ×2 (12:13→21:21)
[2018-01-19] MEDS: BUDESONIDE/FORMETEROL FUMARATE 80/4.5 mcg INHALER IH SCH ×2 (12:14→21:20)
[2018-01-19] MEDS: PANTOPRAZOLE 40 MG TABLET (FP) PO SCH (12:14)
[2018-01-19] MEDS: PRAMIPEXOLE DIHYDROCHLORIDE 0.25 MG TABLET PO SCH ×2 (12:15→21:22)
[2018-01-19] MEDS: SOLIFENACIN SUCCINATE 5 MG TAB (FP) PO SCH (12:16)
[2018-01-19] MEDS: SENNOSIDES 8.6MG TABLET (FP) PO SCH (21:21)
[2018-01-19] MEDS: ROSUVASTATIN CA 10 MG TABLET (FP) PO SCH (21:21)
[2018-01-19] MEDS: LIDOCAINE PATCH REMOVAL MC SCH (22:18)
[2018-01-20] MEDS: ACETAMINOPHEN 325 MG TABLET (FP) PO PRN (05:20)
[2018-01-20] MEDS: PREGABALIN 50 MG CAPSULE PO SCH ×3 (06:02→21:50)
[2018-01-20] MEDS: LEVOTHYROXINE NA 50 MCG TABLET (FP) PO SCH (06:02)
[2018-01-20] MEDS: DOCUSATE SODIUM 100 MG CAPSULE (FP) PO SCH ×3 (06:02→21:50)
[2018-01-20 07:32] LABS: BASO % 0.6 % (0-2.0); EOS % 1.2 % (0-4.5); HEMOGLOBIN 10.7 GM/dL (10.7-15.3); LYMPH % 25.5 % (8-40); MCH 30.3 pg (25.7-33.7); MCHC 34.5 g/dl (32.0-36.0); MEAN CELL VOLUME 87.8 fl (80-96); MEAN PLT VOLUME 7.2 fl (7.5-11.1); MONO % 9.9 % (3.8-10.2); NEUT % 62.8 % (42.8-82.8); PLATELET COUNT 375 K/MM3 (134-434); RBC 3.53 M/mm3 (3.60-5.2); RDW 14.3 % (11.6-15.6); WHITE BLOOD COUNT 7.2 K/mm3 (4.0-10.0)
[2018-01-20 07:49] LABS: CALCIUM 8.6 mg/dL (8.5-10.1); CHLORIDE 100 mmol/L (98-107); POTASSIUM 4.8 mmol/L (3.5-5.1); SODIUM 137 mmol/L (136-145)
[2018-01-20 07:53] LABS: ANION GAP 5 (8-16); BLOOD UREA NITROGEN 16 mg/dL (7-18); CO2 32 mmol/L (21-32); CREATININE 0.5 mg/dL (0.55-1.02); GLUCOSE,RANDOM 90 mg/dL (74-106)
--- NOTE | 2018-01-20 07:55 | PN ---
Progress Note (short form) - Note Progress Note: NEUROSURGERY s/p CT guided parafacet tissue bx c/o low back pain radiating to L > R hip/thigh Off abx PE: Tmax 98.8, AF, VSS HEENT- NC, AT; Neck- supple; Cor- RR; Lungs- CTA; Abd- obese, benign; Ext- no sign of DVT CN- intact II-XII; Motor- 4+/5 throughout except L DF 4- and L DF 4; Sensation- decreased L L4-5-S1 to PP/LT/vibration Urine Cx- E Coli; Blood Cx- negative LS spine MRI- Heterogenous vertebral signals; L5-S1 DDD/spondylolisthesis; L5- S1 foramenal stenosis R > L; epidural signal changes MRI with maureen- L4-5 and L5-S1 disc enhancement and facet enhancement, circumferential epidural enhancement; R L2-3 intraspinal facet cyst with mass effect L5-S1 spondylolisthesis and stenosis; discitis/osteomyelitis/facet spondylitis Restart iv abx to include gram + coverage per ID care d/w Dr Castro and primary care team yesterday Check bx gram stain and culture
--- NOTE | 2018-01-20 09:56 | PN ---
Progress Note (short form) - Note Progress Note: Neurology History of Present Illness: 77 year old female here for worsening low back pain radiating to lower extremities and inability to ambulate at home. She reported b/l lower extremity pain for past several days but for last 3-4 weeks has discomfort in her feet radiating up to her back. She also states she has ongoing low back pain and is uncomfortable appearing in bed, holding on rails on sides. She states she is not able to ambulate. She has been on Lyrica and ordered for 100mg twice daily. CT L spine completed with chronic arthritic changes noted as well as antherolisthesis. She described the pain as sharp, pins and needles. Reportedly with recent fall at [facility]. Is getting pain medication here and Dr. Castlelanos consulted for futher pain mgmt, no follow up note. MRI L spine completed and showed L5 severe thecal sac compression. Discitis also noted, but no osteo evident. NSGY consulted. Lyrica increased to 100mg TID. Plan compelted biopsy to evaluate underlying discitis. Getting morphine and says she's still in pain, not moving lower extremities with significant strength off bed. Active Medications Acetaminophen (Tylenol -) 650 mg PO Q6H PRN PRN Reason: PAIN LEVEL 1-5 Last Admin: 01/20/18 05:20 Dose: 650 mg Albuterol Sulfate (Ventolin Hfa Inhaler -) 1 puff IH Q6H PRN PRN Reason: ASTHMA Albuterol Sulfate (Ventolin Hfa Inhaler -) 2 puff IH Q6H PRN PRN Reason: ASTHMA Last Admin: 01/14/18 05:41 Dose: 2 puff Apixaban (Eliquis -) 5 mg PO BID [facility] Last Admin: 01/17/18 21:55 Dose: 5 mg Ascorbic Acid (Vitamin C -) 500 mg PO DAILY [facility] Last Admin: 01/19/18 12:12 Dose: 500 mg Budesonide/Formoterol Fumarate (Symbicort 80/4.5mcg -) 2 puff IH BID [facility] Last Admin: 01/19/18 21:20 Dose: 2 puff Cyanocobalamin (Vitamin B12 -) 2,500 mcg PO DAILY [facility] Last Admin: 01/19/18 12:12 Dose: 2,500 mcg Docusate Sodium (Colace -) 100 mg PO TID [facility] Last Admin: 01/20/18 06:02 Dose: 100 mg Ferrous Sulfate (Feosol -) 325 mg PO DAILY [facility] Last Admin: 01/19/18 12:12 Dose: 325 mg Vancomycin HCl 1,000 mg/ (Dextrose) 250 mls @ 166.667 mls/hr IVPB Q12H NICOLE PRN Reason: Protocol Cefepime HCl (Maxipime 2gm Ivpb (Premix)) 2 gm in 50 mls @ 100 mls/hr IVPB Q8H- IV [facility] PRN Reason: Protocol Lactobacillus Acidophilus (Bacid -) 1 tab PO DAILY [facility] Last Admin: 01/19/18 12:13 Dose: 1 tab Levothyroxine Sodium (Synthroid -) 50 mcg PO ACBK [facility] Last Admin: 01/20/18 06:02 Dose: 50 mcg Lidocaine (Lidoderm Patch -) 1 patch TP DAILY [facility] Last Admin: 01/19/18 12:13 Dose: 1 patch Losartan Potassium (Cozaar -) 50 mg PO DAILY [facility] Last Admin: 01/19/18 12:12 Dose: 50 mg Metoprolol Succinate (Toprol Xl -) 50 mg PO DAILY [facility] Last Admin: 01/19/18 12:12 Dose: 50 mg Miscellaneous (Lidoderm Patch Removal) 1 each [facility] DAILY@2200 [facility] Last Admin: 01/19/18 22:18 Dose: Not Given Morphine Sulfate (Morphine Sulfate) 3 mg IVPUSH Q4H PRN PRN Reason: PAIN LEVEL 6-10 Last Admin: 01/19/18 22:16 Dose: 3 mg Pantoprazole Sodium (Protonix -) 40 mg PO DAILY [facility] Last Admin: 01/19/18 12:14 Dose: 40 mg Polyethylene Glycol (Miralax (For Daily Use) -) 17 gm PO BID [facility] Last Admin: 01/19/18 21:21 Dose: 17 grams Pramipexole Dihydrochloride (Mirapex -) 0.25 mg PO BID [facility] Last Admin: 01/19/18 21:22 Dose: 0.25 mg Pregabalin (Lyrica -) 100 mg PO TID [facility] Last Admin: 01/20/18 06:02 Dose: 100 mg Rosuvastatin Calcium (Crestor -) 10 mg PO HS [facility] Last Admin: 01/19/18 21:21 Dose: 10 mg Senna (Senna -) 2 tab PO HS [facility] Last Admin: 01/19/18 21:21 Dose: 2 tab Solifenacin (Vesicare -) 10 mg PO DAILY [facility] Last Admin: 01/19/18 12:16 Dose: 10 mg *Physical Exam Vital Signs Temperature 97.9 F 01/20/18 06:00 Pulse Rate 66 01/20/18 06:00 Respiratory Rate 20 01/20/18 06:00 Blood Pressure 110/46 01/20/18 06:00 O2 Sat by Pulse Oximetry (%) 97 01/19/18 20:38 GENERAL: +Patient acutely in pain. Awake, alert, and fully oriented HEAD: No signs of trauma, normocephalic, atraumatic EYES: PERRLA, EOMI, sclera anicteric, conjunctiva clear ENT: Auricles normal inspection, hearing grossly normal, nares patent, oropharynx clear without exudates. Moist mucosa NECK: Normal ROM, supple, no lymphadenopathy, JVD, or masses LUNGS: No distress, speaks full sentences, clear to auscultation bilaterally HEART: Regular rate and rhythm, normal S1 and S2, no murmurs, rubs or gallops, peripheral pulses normal and equal bilaterally. ABDOMEN: Soft, nontender, normoactive bowel sounds. No guarding, no rebound. No masses EXTREMITIES: +Patient acutely tender across lower back bilaterally. Strength intact. Normal inspection, Normal range of motion, no edema. No clubbing or cyanosis. NEUROLOGICAL: Cranial nerves II through XII grossly intact. Limited leg raise 2+ /5, sensation intact to LT, gait deferred SKIN: Warm, Dry, normal turgor, no rashes or lesions noted. CBCD WBC 7.2 K/mm3 (4.0-10.0) 01/20/18 06:00 RBC 3.53 M/mm3 (3.60-5.2) L 01/20/18 06:00 Hgb 10.7 GM/dL (10.7-15.3) 01/20/18 06:00 Hct 31.0 % (32.4-45.2) L 01/20/18 06:00 MCV 87.8 fl (80-96) 01/20/18 06:00 MCHC 34.5 g/dl (32.0-36.0) 01/20/18 06:00 RDW 14.3 % (11.6-15.6) 01/20/18 06:00 Plt Count 375 K/MM3 (134-434) D 01/20/18 06:00 MPV 7.2 fl (7.5-11.1) L 01/20/18 06:00 CMP Sodium 137 mmol/L (136-145) 01/20/18 06:00 Potassium 4.8 mmol/L (3.5-5.1) 01/20/18 06:00 Chloride 100 mmol/L (98-107) 01/20/18 06:00 Carbon Dioxide 32 mmol/L (21-32) 01/20/18 06:00 Anion Gap 5 (8-16) L 01/20/18 06:00 BUN 16 mg/dL (7-18) 01/20/18 06:00 Creatinine 0.5 mg/dL (0.55-1.02) L 01/20/18 06:00 Creat Clearance w eGFR > 60 (>60) 01/12/18 11:39 Calcium 8.6 mg/dL (8.5-10.1) 01/20/18 06:00 Total Bilirubin 0.7 mg/dL (0.2-1.0) D 01/12/18 11:39 AST 22 U/L (15-37) 01/12/18 11:39 ALT 15 U/L (12-78) 01/12/18 11:39 Alkaline Phosphatase 59 U/L (45-117) 01/12/18 11:39 Total Protein 6.3 g/dl (6.4-8.2) L 01/12/18 11:39 Albumin 2.9 g/dl (3.4-5.0) L 01/12/18 11:39 Imaging Cat Scan: Report Reviewed MRI L spine reviewed Plan 77 year old female here for worsening low back pain radiating to lower extremities and inability to ambulate at home. She reported b/l lower extremity pain for past several days but for last 3-4 weeks has discomfort in her feet radiating up to her back. She also states she has ongoing low back pain and is uncomfortable appearing in bed, holding on rails on sides. She states she is not able to ambulate. She has been on Lyrica and ordered for 100mg twice daily. CT L spine completed with chronic arthritic changes noted as well as antherolisthesis. Reportedly with recent fall at [facility]. MRI L spine reviewed, severe L5 thecal sac compression, NSGY following Increased Lyrica to 100mg three times daily Also on morphine 2mg IV, Q4hrs PRN, will need to cautious with medications Defer to pain mgmt regarding further pain medication adjustments Physical therapy as tolerated Biopsy completed, follow up results Hydration recommended Fall precautions PT/OT as tolerated Likely to require rehab
[2018-01-20] MEDS ORDERED: PT OWN MED DRAWER 7, Y5N ONE (10:41)
[2018-01-20] MEDS ORDERED: CEFEPIME HCL 2 GM VIAL (RESTRICTED TO ID) ONE ×2 (10:42→17:32)
[2018-01-20] MEDS ORDERED: DEXTROSE 5%-WATER 100 ML IVPB ONE ×2 (10:42→17:32)
[2018-01-20 10:43] LABS: ERYTHROCYTE SEDIMENTATION RATE 70 mm/hr (0-30)
[2018-01-20] MEDS: LACTOBACILLUS ACIDOPHILUS 1 TABLET PO SCH (10:48)
[2018-01-20] MEDS: CYANOCOBALAMIN 1,000 MCG TABLET (FP) PO SCH (10:48)
[2018-01-20] MEDS: CEFEPIME 2 GM in DEXTROSE 5%-WATER 100 ML IVPB SCH ×2 (10:50→17:42)
[2018-01-20] MEDS: FERROUS SO4 325 MG TABLET (FP) PO SCH (10:50)
[2018-01-20] MEDS: PANTOPRAZOLE 40 MG TABLET (FP) PO SCH (10:50)
[2018-01-20] MEDS: ASCORBIC ACID 500 MG TABLET (FP) PO SCH (10:51)
[2018-01-20] MEDS: APIXABAN 5 MG TABLET PO SCH ×2 (10:51→22:29)
[2018-01-20] MEDS: LIDOCAINE 5% TOPICAL PATCH TP SCH (10:52)
[2018-01-20] MEDS: PRAMIPEXOLE DIHYDROCHLORIDE 0.25 MG TABLET PO SCH ×2 (10:52→22:29)
[2018-01-20] MEDS: POLYETHYLENE GLYCOL 3350 119 GM BTL PO SCH ×2 (10:52→21:49)
[2018-01-20] MEDS: BUDESONIDE/FORMETEROL FUMARATE 80/4.5 mcg INHALER IH SCH ×2 (10:53→21:50)
[2018-01-20] MEDS: SOLIFENACIN SUCCINATE 5 MG TAB (FP) PO SCH (10:54)
[2018-01-20] MEDS: LOSARTAN POTASSIUM 50 MG TABLET (FP) PO SCH (11:04)
[2018-01-20] MEDS: VANCOMYCIN 1 GM PREMIX - 1 GM/200 ML BAG IVPB SCH ×2 (12:27→21:49)
--- NOTE | 2018-01-20 12:29 | PN ---
Progress Note, Physician History of Present Illness: S/P CT guided bx of parafacet tissue Gram stain, routine c/s, AFB/ Fungal c/s pending Awake,alert Reports less low back pain Temps down Afebrile - Current Medication List Current Medications: Active Medications Acetaminophen (Tylenol -) 650 mg PO Q6H PRN PRN Reason: PAIN LEVEL 1-5 Last Admin: 01/20/18 05:20 Dose: 650 mg Albuterol Sulfate (Ventolin Hfa Inhaler -) 1 puff IH Q6H PRN PRN Reason: ASTHMA Albuterol Sulfate (Ventolin Hfa Inhaler -) 2 puff IH Q6H PRN PRN Reason: ASTHMA Last Admin: 01/14/18 05:41 Dose: 2 puff Apixaban (Eliquis -) 5 mg PO BID [facility] Last Admin: 01/20/18 10:51 Dose: 5 mg Ascorbic Acid (Vitamin C -) 500 mg PO DAILY [facility] Last Admin: 01/20/18 10:51 Dose: 500 mg Budesonide/Formoterol Fumarate (Symbicort 80/4.5mcg -) 2 puff IH BID [facility] Last Admin: 01/20/18 10:53 Dose: 2 puff Cyanocobalamin (Vitamin B12 -) 2,500 mcg PO DAILY [facility] Last Admin: 01/20/18 10:48 Dose: 2,500 mcg Docusate Sodium (Colace -) 100 mg PO TID [facility] Last Admin: 01/20/18 06:02 Dose: 100 mg Ferrous Sulfate (Feosol -) 325 mg PO DAILY [facility] Last Admin: 01/20/18 10:50 Dose: 325 mg Vancomycin HCl (Vancomycin 1 Gm Premix -) 1 gm in 200 mls @ 133.333 mls/hr IVPB BID [facility]ICOLE PRN Reason: Protocol Last Admin: 01/20/18 12:27 Dose: 133.333 mls/hr Cefepime HCl 2 gm/ Dextrose 100 mls @ 200 mls/hr IVPB Q8H-IV NICOLE PRN Reason: Protocol Last Admin: 01/20/18 10:50 Dose: 200 mls/hr Lactobacillus Acidophilus (Bacid -) 1 tab PO DAILY [facility] Last Admin: 01/20/18 10:48 Dose: 1 tab Levothyroxine Sodium (Synthroid -) 50 mcg PO ACBK [facility] Last Admin: 01/20/18 06:02 Dose: 50 mcg Lidocaine (Lidoderm Patch -) 1 patch TP DAILY [facility] Last Admin: 01/20/18 10:52 Dose: 1 patch Losartan Potassium (Cozaar -) 50 mg PO DAILY [facility] Last Admin: 01/20/18 11:04 Dose: Not Given Metoprolol Succinate (Toprol Xl -) 50 mg PO DAILY [facility] Last Admin: 01/20/18 11:03 Dose: Not Given Miscellaneous (Lidoderm Patch Removal) 1 each MC DAILY@2200 [facility] Last Admin: 01/19/18 22:18 Dose: Not Given Morphine Sulfate (Morphine Sulfate) 3 mg IVPUSH Q4H PRN PRN Reason: PAIN LEVEL 6-10 Last Admin: 01/19/18 22:16 Dose: 3 mg Pantoprazole Sodium (Protonix -) 40 mg PO DAILY [facility] Last Admin: 01/20/18 10:50 Dose: 40 mg Polyethylene Glycol (Miralax (For Daily Use) -) 17 gm PO BID [facility] Last Admin: 01/20/18 10:52 Dose: 17 grams Pramipexole Dihydrochloride (Mirapex -) 0.25 mg PO BID [facility] Last Admin: 01/20/18 10:52 Dose: 0.25 mg Pregabalin (Lyrica -) 100 mg PO TID [facility] Last Admin: 01/20/18 06:02 Dose: 100 mg Rosuvastatin Calcium (Crestor -) 10 mg PO HS [facility] Last Admin: 01/19/18 21:21 Dose: 10 mg Senna (Senna -) 2 tab PO [facility] Last Admin: 01/19/18 21:21 Dose: 2 tab Solifenacin (Vesicare -) 10 mg PO DAILY [facility] Last Admin: 01/20/18 10:54 Dose: 10 mg - Objective Vital Signs: Vital Signs Temperature 98 F 01/20/18 10:00 Pulse Rate 60 01/20/18 10:00 Respiratory Rate 20 01/20/18 06:00 Blood Pressure 99/62 01/20/18 10:00 O2 Sat by Pulse Oximetry (%) 97 01/19/18 20:38 Constitutional: Yes: No Distress Eyes: Yes: Conjunctiva Clear Cardiovascular: Yes: Regular Rate and Rhythm, S1, S2 Respiratory: Yes: CTA Bilaterally Gastrointestinal: Yes: Normal Bowel Sounds, Soft, Abdomen, Obese. No: Tenderness Edema: Yes Labs: CBC, BMP 01/20/18 06:00 01/20/18 06:00 Assessment/Plan S/P CT guided bx parafacet tissue Discitis Fever- improved MRI images reviewed with radiologist and Dr Ibrahim yesterday Await specimen for routine c/s, AFB/Fungal c/s Pending cultures empiric Vancomycin/ Cefepime
--- NOTE | 2018-01-20 12:42 | PN ---
Progress Note, Physician Chief Complaint: Patient says she is still having intense amount of pain in her back and left leg. Denies cp, sob, n/v. RN notes that, even though patient complains of pain when asked, she has not yet requested pain medication today. - Current Medication List Current Medications: Active Medications Acetaminophen (Tylenol -) 650 mg PO Q6H PRN PRN Reason: PAIN LEVEL 1-5 Last Admin: 01/20/18 05:20 Dose: 650 mg Albuterol Sulfate (Ventolin Hfa Inhaler -) 1 puff IH Q6H PRN PRN Reason: ASTHMA Albuterol Sulfate (Ventolin Hfa Inhaler -) 2 puff IH Q6H PRN PRN Reason: ASTHMA Last Admin: 01/14/18 05:41 Dose: 2 puff Apixaban (Eliquis -) 5 mg PO BID [facility] Last Admin: 01/20/18 10:51 Dose: 5 mg Ascorbic Acid (Vitamin C -) 500 mg PO DAILY [facility] Last Admin: 01/20/18 10:51 Dose: 500 mg Budesonide/Formoterol Fumarate (Symbicort 80/4.5mcg -) 2 puff IH BID [facility] Last Admin: 01/20/18 10:53 Dose: 2 puff Cyanocobalamin (Vitamin B12 -) 2,500 mcg PO DAILY [facility] Last Admin: 01/20/18 10:48 Dose: 2,500 mcg Docusate Sodium (Colace -) 100 mg PO TID [facility] Last Admin: 01/20/18 06:02 Dose: 100 mg Ferrous Sulfate (Feosol -) 325 mg PO DAILY [facility] Last Admin: 01/20/18 10:50 Dose: 325 mg Vancomycin HCl (Vancomycin 1 Gm Premix -) 1 gm in 200 mls @ 133.333 mls/hr IVPB BID [facility]ICO[facility] PRN Reason: Protocol Last Admin: 01/20/18 12:27 Dose: 133.333 mls/hr Cefepime HCl 2 gm/ Dextrose 100 mls @ 200 mls/hr IVPB Q8H-IV NICOLE PRN Reason: Protocol Last Admin: 01/20/18 10:50 Dose: 200 mls/hr Lactobacillus Acidophilus (Bacid -) 1 tab PO DAILY [facility] Last Admin: 01/20/18 10:48 Dose: 1 tab Levothyroxine Sodium (Synthroid -) 50 mcg PO ACBK [facility] Last Admin: 01/20/18 06:02 Dose: 50 mcg Lidocaine (Lidoderm Patch -) 1 patch TP DAILY [facility] Last Admin: 01/20/18 10:52 Dose: 1 patch Losartan Potassium (Cozaar -) 50 mg PO DAILY [facility] Last Admin: 01/20/18 11:04 Dose: Not Given Metoprolol Succinate (Toprol Xl -) 50 mg PO DAILY [facility] Last Admin: 01/20/18 11:03 Dose: Not Given Miscellaneous (Lidoderm Patch Removal) 1 each MC DAILY@2200 [facility] Last Admin: 01/19/18 22:18 Dose: Not Given Morphine Sulfate (Morphine Sulfate) 3 mg IVPUSH Q4H PRN PRN Reason: PAIN LEVEL 6-10 Last Admin: 01/19/18 22:16 Dose: 3 mg Pantoprazole Sodium (Protonix -) 40 mg PO DAILY [facility] Last Admin: 01/20/18 10:50 Dose: 40 mg Polyethylene Glycol (Miralax (For Daily Use) -) 17 gm PO BID [facility] Last Admin: 01/20/18 10:52 Dose: 17 grams Pramipexole Dihydrochloride (Mirapex -) 0.25 mg PO BID [facility] Last Admin: 01/20/18 10:52 Dose: 0.25 mg Pregabalin (Lyrica -) 100 mg PO TID [facility] Last Admin: 01/20/18 06:02 Dose: 100 mg Rosuvastatin Calcium (Crestor -) 10 mg PO HS [facility] Last Admin: 01/19/18 21:21 Dose: 10 mg Senna (Senna -) 2 tab PO [facility] Last Admin: 01/19/18 21:21 Dose: 2 tab Solifenacin (Vesicare -) 10 mg PO DAILY [facility] Last Admin: 01/20/18 10:54 Dose: 10 mg - Objective Vital Signs: Vital Signs Temperature 36.6 C 01/20/18 10:00 Pulse Rate 60 01/20/18 10:00 Respiratory Rate 20 01/20/18 06:00 Blood Pressure 99/62 01/20/18 10:00 O2 Sat by Pulse Oximetry (%) 97 01/19/18 20:38 Constitutional: Yes: No Distress, Calm, Obese Cardiovascular: Yes: Regular Rate and Rhythm. No: Gallop, Murmur, Rub Respiratory: Yes: Regular, CTA Bilaterally. No: Rales, Rhonchi, Wheezes Gastrointestinal: Yes: Normal Bowel Sounds, Soft. No: Distention, Tenderness Extremities: Yes: WNL Edema: No Labs: CBC, BMP 01/20/18 06:00 01/20/18 06:00 Assessment/Plan (1) Sepsis Assessment/Plan: -resolved Code(s): A41.9 - SEPSIS, UNSPECIFIED ORGANISM (2) UTI (urinary tract infection) Assessment/Plan: -ID following -s/p full treatment -now on empiric cefepime and vancomycin for possible septic discitis Code(s): N39.0 - URINARY TRACT INFECTION, SITE NOT SPECIFIED Qualifiers: Urinary tract infection type: site unspecified Hematuria presence: with hematuria Qualified Code(s): N39.0 - Urinary tract infection, site not specified; R31.9 - Hematuria, unspecified; R31.9 - Hematuria, unspecified (3) Leukocytosis Assessment/Plan: -resolved Code(s): D72.829 - ELEVATED WHITE BLOOD CELL COUNT, UNSPECIFIED (4) Fall Assessment/Plan: -will need SNF placement Code(s): W19.XXXA - UNSPECIFIED FALL, INITIAL ENCOUNTER (5) Low back pain Assessment/Plan: -s/p aspiration -awaiting gram stains and cultures -now on empiric vancomycin and cefepime -patient says not improved, but looks much improved today -ESR and CRP improving Code(s): M54.5 - LOW BACK PAIN Qualifiers: Chronicity: acute Back pain laterality: bilateral (6) HLD (hyperlipidemia) Assessment/Plan: -continue crestor Code(s): E78.5 - HYPERLIPIDEMIA, UNSPECIFIED (7) HTN (hypertension) Assessment/Plan: -low normal this am -monitor Code(s): I10 - ESSENTIAL (PRIMARY) HYPERTENSION Qualifiers: Hypertension type: essential hypertension Qualified Code(s): I10 - Essential (primary) hypertension (8) Hypothyroid Assessment/Plan: -continue levothyroxine Code(s): E03.9 - HYPOTHYROIDISM, UNSPECIFIED (9) Afib Assessment/Plan: -rate controlled -continue eliquis and metoprolol Code(s): I48.91 - UNSPECIFIED ATRIAL FIBRILLATION Qualifiers: Atrial fibrillation type: chronic Qualified Code(s): I48.2 - Chronic atrial fibrillation (10) CAD (coronary artery disease) Assessment/Plan: -quiescent Code(s): I25.10 - ATHSCL HEART DISEASE OF [place] CORONARY ARTERY W/O ANG PCTRS (11) COPD (chronic obstructive pulmonary disease) Assessment/Plan: -not in exacerbation -continue current management Code(s): J44.9 - CHRONIC OBSTRUCTIVE PULMONARY DISEASE, UNSPECIFIED (12) Osteoarthritis Assessment/Plan: -prn tylenol and PT Code(s): M19.90 - UNSPECIFIED OSTEOARTHRITIS, UNSPECIFIED SITE Qualifiers: Osteoarthritis location: spine Spinal region: cervical (13) History of breast cancer Assessment/Plan: -s/p chemp, xrt, left partial mastectomy Code(s): Z85.3 - PERSONAL HISTORY OF MALIGNANT NEOPLASM OF BREAST
[2018-01-20] MEDS: LIDOCAINE PATCH REMOVAL MC SCH (21:50)
[2018-01-20] MEDS: SENNOSIDES 8.6MG TABLET (FP) PO SCH (21:50)
[2018-01-20] MEDS: ROSUVASTATIN CA 10 MG TABLET (FP) PO SCH (21:50)
[2018-01-21] MEDS: morphine SULFATE 4 MG/ML VIAL IVPUSH PRN ×3 (02:31→18:08)
[2018-01-21] MEDS: CEFEPIME 2 GM in DEXTROSE 5%-WATER 100 ML IVPB SCH ×3 (02:33→18:08)
[2018-01-21] MEDS: DOCUSATE SODIUM 100 MG CAPSULE (FP) PO SCH ×3 (05:50→22:03)
[2018-01-21] MEDS: PREGABALIN 50 MG CAPSULE PO SCH ×3 (05:50→22:03)
[2018-01-21] MEDS: LEVOTHYROXINE NA 50 MCG TABLET (FP) PO SCH (06:13)
[2018-01-21 07:30] LABS: BASO % 0.5 % (0-2.0); EOS % 1.7 % (0-4.5); HEMOGLOBIN 11.1 GM/dL (10.7-15.3); LYMPH % 28.8 % (8-40); MCH 29.6 pg (25.7-33.7); MCHC 33.6 g/dl (32.0-36.0); MEAN CELL VOLUME 88.2 fl (80-96); MEAN PLT VOLUME 7.1 fl (7.5-11.1); PLATELET COUNT 438 K/MM3 (134-434); RBC 3.74 M/mm3 (3.60-5.2); RDW 14.6 % (11.6-15.6); WHITE BLOOD COUNT 7.8 K/mm3 (4.0-10.0)
[2018-01-21 07:48] LABS: ANION GAP 7 (8-16); BLOOD UREA NITROGEN 11 mg/dL (7-18); CHLORIDE 99 mmol/L (98-107); CO2 31 mmol/L (21-32); GLUCOSE,RANDOM 94 mg/dL (74-106); MAGNESIUM 1.8 mg/dL (1.8-2.4); POTASSIUM 4.9 mmol/L (3.5-5.1); SODIUM 137 mmol/L (136-145)
[2018-01-21 07:50] LABS: CREATININE 0.5 mg/dL (0.55-1.02); PHOSPHOROUS 4.1 mg/dL (2.5-4.9)
--- NOTE | 2018-01-21 08:29 | PN ---
Progress Note (short form) - Note Progress Note: NEUROSURGERY s/p CT guided parafacet tissue bx c/o severe low back pain and L hip/thigh pain On vanco and cefepime for coverage PE: Tmax 98.6, AF, VSS HEENT- NC, AT; Neck- supple; Cor- RR; Lungs- CTA; Abd- obese, benign; Ext- no sign of DVT CN- intact II-XII; Motor- 4/5 UE; L LE 2 and R LE 2-3 pain limited; Sensation- decreased L L4-5-S1 to PP/LT/vibration Urine Cx- E Coli; Blood Cx- negative LS spine MRI- Heterogenous vertebral signals; L5-S1 DDD/spondylolisthesis; L5- S1 foramenal stenosis R > L; epidural signal changes MRI with maureen- L4-5 and L5-S1 disc enhancement and facet enhancement, circumferential epidural enhancement; R L2-3 intraspinal facet cyst with mass effect L5-S1 spondylolisthesis and stenosis; discitis/osteomyelitis/facet spondylitis Surgical intervention not optimal given age and associated medical/cardiac conditions on Jayden d/w Dr 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
[2018-01-21] MEDS: ACETAMINOPHEN 325 MG TABLET (FP) PO PRN (08:59)
--- NOTE | 2018-01-21 10:03 | PN ---
Progress Note, Physician Chief Complaint: Pt lying in bed in no acute distress. Reports worsening LBP w/ radiation to LEs , pins and needles, unable to move per pt. otherwise, denies chest pain, sob , n/v/d - Current Medication List Current Medications: Active Medications Acetaminophen (Tylenol -) 650 mg PO Q6H PRN PRN Reason: PAIN LEVEL 1-5 Last Admin: 01/21/18 08:59 Dose: 650 mg Albuterol Sulfate (Ventolin Hfa Inhaler -) 1 puff IH Q6H PRN PRN Reason: ASTHMA Albuterol Sulfate (Ventolin Hfa Inhaler -) 2 puff IH Q6H PRN PRN Reason: ASTHMA Last Admin: 01/14/18 05:41 Dose: 2 puff Apixaban (Eliquis -) 5 mg PO BID [facility] Last Admin: 01/20/18 22:29 Dose: 5 mg Ascorbic Acid (Vitamin C -) 500 mg PO DAILY [facility] Last Admin: 01/20/18 10:51 Dose: 500 mg Budesonide/Formoterol Fumarate (Symbicort 80/4.5mcg -) 2 puff IH BID [facility] Last Admin: 01/20/18 21:50 Dose: 2 puff Cyanocobalamin (Vitamin B12 -) 2,500 mcg PO DAILY [facility] Last Admin: 01/20/18 10:48 Dose: 2,500 mcg Docusate Sodium (Colace -) 100 mg PO TID [facility] Last Admin: 01/21/18 05:50 Dose: Not Given Ferrous Sulfate (Feosol -) 325 mg PO DAILY [facility] Last Admin: 01/20/18 10:50 Dose: 325 mg Vancomycin HCl (Vancomycin 1 Gm Premix -) 1 gm in 200 mls @ 133.333 mls/hr IVPB BID [facility]ICO[facility] PRN Reason: Protocol Last Admin: 01/20/18 21:49 Dose: 133.333 mls/hr Cefepime HCl 2 gm/ Dextrose 100 mls @ 200 mls/hr IVPB Q8H-IV NICOLE PRN Reason: Protocol Last Admin: 01/21/18 02:33 Dose: 200 mls/hr Lactobacillus Acidophilus (Bacid -) 1 tab PO DAILY [facility] Last Admin: 01/20/18 10:48 Dose: 1 tab Levothyroxine Sodium (Synthroid -) 50 mcg PO ACBK [facility] Last Admin: 01/21/18 06:13 Dose: 50 mcg Lidocaine (Lidoderm Patch -) 1 patch TP DAILY [facility] Last Admin: 01/20/18 10:52 Dose: 1 patch Losartan Potassium (Cozaar -) 50 mg PO DAILY [facility] Last Admin: 01/20/18 11:04 Dose: Not Given Metoprolol Succinate (Toprol Xl -) 50 mg PO DAILY [facility] Last Admin: 01/20/18 11:03 Dose: Not Given Miscellaneous (Lidoderm Patch Removal) 1 each MC DAILY@2200 [facility] Last Admin: 01/20/18 21:50 Dose: Not Given Morphine Sulfate (Morphine Sulfate) 3 mg IVPUSH Q4H PRN PRN Reason: PAIN LEVEL 6-10 Last Admin: 01/21/18 09:00 Dose: 3 mg Oxycodone HCl (Oxycontin -) 10 mg PO BID [facility] Pantoprazole Sodium (Protonix -) 40 mg PO DAILY [facility] Last Admin: 01/20/18 10:50 Dose: 40 mg Polyethylene Glycol (Miralax (For Daily Use) -) 17 gm PO BID [facility] Last Admin: 01/20/18 21:49 Dose: 119 grams Pramipexole Dihydrochloride (Mirapex -) 0.25 mg PO BID [facility] Last Admin: 01/20/18 22:29 Dose: 0.25 mg Pregabalin (Lyrica -) 100 mg PO TID [facility] Last Admin: 01/21/18 05:50 Dose: 100 mg Rosuvastatin Calcium (Crestor -) 10 mg PO [facility] Last Admin: 01/20/18 21:50 Dose: 10 mg Senna (Senna -) 2 tab PO [facility] Last Admin: 01/20/18 21:50 Dose: 2 tab Solifenacin (Vesicare -) 10 mg PO DAILY [facility] Last Admin: 01/20/18 10:54 Dose: 10 mg - Objective Vital Signs: Vital Signs Temperature 98.2 F 01/21/18 06:13 Pulse Rate 79 01/21/18 06:13 Respiratory Rate 18 01/21/18 06:13 Blood Pressure 127/75 01/21/18 06:13 O2 Sat by Pulse Oximetry (%) 97 01/20/18 21:00 Constitutional: Yes: Well Nourished, No Distress Cardiovascular: Yes: Regular Rate and Rhythm Respiratory: Yes: WNL, Regular, CTA Bilaterally. No: Accessory Muscle Use, SOB , Tachypnea Gastrointestinal: Yes: WNL, Normal Bowel Sounds, Soft. No: Distention, Tenderness ...Rectal Exam: Yes: Deferred Genitourinary: Yes: Incontinence Edema: No Neurological: Yes: Alert, Oriented, Numbness (LE's), Tingling Psychiatric: Yes: WNL, Alert, Oriented Labs: CBC, BMP 01/21/18 06:00 01/21/18 06:00 Problem List - Problems (1) UTI (urinary tract infection) Code(s): N39.0 - URINARY TRACT INFECTION, SITE NOT SPECIFIED Qualifiers: Urinary tract infection type: site unspecified Hematuria presence: with hematuria Qualified Code(s): N39.0 - Urinary tract infection, site not specified; R31.9 - Hematuria, unspecified; R31.9 - Hematuria, unspecified (2) Leukocytosis Code(s): D72.829 - ELEVATED WHITE BLOOD CELL COUNT, UNSPECIFIED (3) Fall Code(s): W19.XXXA - UNSPECIFIED FALL, INITIAL ENCOUNTER (4) Low back pain Code(s): M54.5 - LOW BACK PAIN Qualifiers: Chronicity: acute Back pain laterality: bilateral (5) HLD (hyperlipidemia) Code(s): E78.5 - HYPERLIPIDEMIA, UNSPECIFIED (6) HTN (hypertension) Code(s): I10 - ESSENTIAL (PRIMARY) HYPERTENSION Qualifiers: Hypertension type: essential hypertension Qualified Code(s): I10 - Essential (primary) hypertension (7) Hypothyroid Code(s): E03.9 - HYPOTHYROIDISM, UNSPECIFIED (8) Afib Code(s): I48.91 - UNSPECIFIED ATRIAL FIBRILLATION Qualifiers: Atrial fibrillation type: chronic Qualified Code(s): I48.2 - Chronic atrial fibrillation (9) CAD (coronary artery disease) Code(s): I25.10 - ATHSCL HEART DISEASE OF [place] CORONARY ARTERY W/O ANG PCTRS (10) COPD (chronic obstructive pulmonary disease) Code(s): J44.9 - CHRONIC OBSTRUCTIVE PULMONARY DISEASE, UNSPECIFIED (11) Osteoarthritis Code(s): M19.90 - UNSPECIFIED OSTEOARTHRITIS, UNSPECIFIED SITE Qualifiers: Osteoarthritis location: spine Spinal region: cervical (12) History of breast cancer Code(s): Z85.3 - PERSONAL HISTORY OF MALIGNANT NEOPLASM OF BREAST (13) Sepsis Code(s): A41.9 - SEPSIS, UNSPECIFIED ORGANISM Assessment/Plan (1) Sepsis Assessment/Plan: resolved Code(s): A41.9 - SEPSIS, UNSPECIFIED ORGANISM (2) UTI (urinary tract infection) Assessment/Plan: ecoli-uti ceftriaxone 5/5 completed ID following Code(s): N39.0 - URINARY TRACT INFECTION, SITE NOT SPECIFIED Qualifiers: Urinary tract infection type: site unspecified Hematuria presence: with hematuria Qualified Code(s): N39.0 - Urinary tract infection, site not specified; R31.9 - Hematuria, unspecified; R31.9 - Hematuria, unspecified (3) Leukocytosis Assessment/Plan: resolved Code(s): D72.829 - ELEVATED WHITE BLOOD CELL COUNT, UNSPECIFIED (4) Fall Assessment/Plan: s/p fall w/out loc/head trauma 2 weeks ago, mechanical coccyx/lumbar/thoracic xrays without acute fracture fall precautions Code(s): W19.XXXA - UNSPECIFIED FALL, INITIAL ENCOUNTER (5) Low back pain Assessment/Plan: worsening low back pain w/ radiation to LE's inability to ambulate lumbar CT without acute findings MRI- severe thecal compression, concerns for diskitis on empiric cefepime/vanco esr/crp trending down s/p spinal aspiration, c/s pending tylenol/lyrica oxycontin PT neuro following pain management reconsulted Code(s): M54.5 - LOW BACK PAIN Qualifiers: Chronicity: acute Back pain laterality: bilateral (6) HLD (hyperlipidemia) Assessment/Plan: chronic continue crestor Code(s): E78.5 - HYPERLIPIDEMIA, UNSPECIFIED (7) HTN (hypertension) Assessment/Plan: controlled continue metoprolol bp adequately controlled, will hold hct for now Code(s): I10 - ESSENTIAL (PRIMARY) HYPERTENSION Qualifiers: Hypertension type: essential hypertension Qualified Code(s): I10 - Essential (primary) hypertension (8) Hypothyroid Assessment/Plan: chronic continue levothyroxine Code(s): E03.9 - HYPOTHYROIDISM, UNSPECIFIED (9) Afib Assessment/Plan: controlled continue metoprolol/ eliquis Code(s): I48.91 - UNSPECIFIED ATRIAL FIBRILLATION Qualifiers: Atrial fibrillation type: chronic Qualified Code(s): I48.2 - Chronic atrial fibrillation (10) CAD (coronary artery disease) Assessment/Plan: stable continue statin Code(s): I25.10 - ATHSCL HEART DISEASE OF [place] CORONARY ARTERY W/O ANG PCTRS (11) COPD (chronic obstructive pulmonary disease) Assessment/Plan: chronic continue current management Code(s): J44.9 - CHRONIC OBSTRUCTIVE PULMONARY DISEASE, UNSPECIFIED (12) Osteoarthritis Assessment/Plan: chronic Tylenol PT Code(s): M19.90 - UNSPECIFIED OSTEOARTHRITIS, UNSPECIFIED SITE Qualifiers: Osteoarthritis location: spine Spinal region: cervical (13) History of breast cancer Assessment/Plan: s/p chemp, xrt, left partial mastectomy Code(s): Z85.3 - PERSONAL HISTORY OF MALIGNANT NEOPLASM OF BREAST
[2018-01-21] MEDS ORDERED: CEFEPIME HCL 2 GM VIAL (RESTRICTED TO ID) ONE ×2 (10:14→17:45)
[2018-01-21] MEDS ORDERED: DEXTROSE 5%-WATER 100 ML IVPB ONE ×2 (10:14→17:45)
[2018-01-21] MEDS: CYANOCOBALAMIN 1,000 MCG TABLET (FP) PO SCH (10:39)
[2018-01-21] MEDS: LACTOBACILLUS ACIDOPHILUS 1 TABLET PO SCH (10:39)
[2018-01-21] MEDS: LIDOCAINE 5% TOPICAL PATCH TP SCH (10:40)
[2018-01-21] MEDS: FERROUS SO4 325 MG TABLET (FP) PO SCH (10:40)
[2018-01-21] MEDS: PANTOPRAZOLE 40 MG TABLET (FP) PO SCH (10:40)
[2018-01-21] MEDS: oxyCODONE HCL 10 MG SUSTAINED ACTING TABLET PO SCH ×2 (10:48→22:03)
[2018-01-21] MEDS: ASCORBIC ACID 500 MG TABLET (FP) PO SCH (10:48)
[2018-01-21] MEDS: LOSARTAN POTASSIUM 50 MG TABLET (FP) PO SCH (10:48)
[2018-01-21] MEDS: POLYETHYLENE GLYCOL 3350 119 GM BTL PO SCH ×2 (10:49→22:03)
[2018-01-21] MEDS: APIXABAN 5 MG TABLET PO SCH ×2 (10:51→22:03)
[2018-01-21] MEDS: PRAMIPEXOLE DIHYDROCHLORIDE 0.25 MG TABLET PO SCH ×2 (10:51→22:03)
[2018-01-21] MEDS: BUDESONIDE/FORMETEROL FUMARATE 80/4.5 mcg INHALER IH SCH ×2 (10:53→22:04)
[2018-01-21] MEDS: SOLIFENACIN SUCCINATE 5 MG TAB (FP) PO SCH (10:55)
[2018-01-21] MEDS ORDERED: MAGNESIUM OXIDE 400 MG TABLET (FP) PO ONE (11:34)
--- NOTE | 2018-01-21 12:29 | PN ---
Progress Note, Physician History of Present Illness: S/P CT guided bx of parafacet tissue Gram stain, routine c/s, AFB/ Fungal c/s pending Awake,alert C/O bilateral LE numbness and weakness No c/o fever/ chills Afebrile WBC WNL - Current Medication List Current Medications: Active Medications Acetaminophen (Tylenol -) 650 mg PO Q6H PRN PRN Reason: PAIN LEVEL 1-5 Last Admin: 01/21/18 08:59 Dose: 650 mg Albuterol Sulfate (Ventolin Hfa Inhaler -) 1 puff IH Q6H PRN PRN Reason: ASTHMA Albuterol Sulfate (Ventolin Hfa Inhaler -) 2 puff IH Q6H PRN PRN Reason: ASTHMA Last Admin: 01/14/18 05:41 Dose: 2 puff Apixaban (Eliquis -) 5 mg PO BID [facility] Last Admin: 01/21/18 10:51 Dose: 5 mg Ascorbic Acid (Vitamin C -) 500 mg PO DAILY [facility] Last Admin: 01/21/18 10:48 Dose: 500 mg Budesonide/Formoterol Fumarate (Symbicort 80/4.5mcg -) 2 puff IH BID [facility] Last Admin: 01/21/18 10:53 Dose: 2 puff Cyanocobalamin (Vitamin B12 -) 2,500 mcg PO DAILY [facility] Last Admin: 01/21/18 10:39 Dose: 2,500 mcg Docusate Sodium (Colace -) 100 mg PO TID [facility] Last Admin: 01/21/18 05:50 Dose: Not Given Ferrous Sulfate (Feosol -) 325 mg PO DAILY [facility] Last Admin: 01/21/18 10:40 Dose: 325 mg Vancomycin HCl (Vancomycin 1 Gm Premix -) 1 gm in 200 mls @ 133.333 mls/hr IVPB BID [facility] PRN Reason: Protocol Last Admin: 01/20/18 21:49 Dose: 133.333 mls/hr Cefepime HCl 2 gm/ Dextrose 100 mls @ 200 mls/hr IVPB Q8H-IV [facility]ICO[facility] PRN Reason: Protocol Last Admin: 01/21/18 10:41 Dose: 200 mls/hr Lactobacillus Acidophilus (Bacid -) 1 tab PO DAILY [facility] Last Admin: 01/21/18 10:39 Dose: 1 tab Levothyroxine Sodium (Synthroid -) 50 mcg PO ACBK [facility] Last Admin: 01/21/18 06:13 Dose: 50 mcg Lidocaine (Lidoderm Patch -) 1 patch TP DAILY [facility] Last Admin: 01/21/18 10:40 Dose: 1 patch Losartan Potassium (Cozaar -) 50 mg PO DAILY [facility] Last Admin: 01/21/18 10:48 Dose: 50 mg Metoprolol Succinate (Toprol Xl -) 50 mg PO DAILY [facility] Last Admin: 01/21/18 10:48 Dose: 50 mg Miscellaneous (Lidoderm Patch Removal) 1 each MC DAILY@2200 [facility] Last Admin: 01/20/18 21:50 Dose: Not Given Morphine Sulfate (Morphine Sulfate) 3 mg IVPUSH Q4H PRN PRN Reason: PAIN LEVEL 6-10 Last Admin: 01/21/18 09:00 Dose: 3 mg Oxycodone HCl (Oxycontin -) 10 mg PO BID [facility] Last Admin: 01/21/18 10:48 Dose: 10 mg Pantoprazole Sodium (Protonix -) 40 mg PO DAILY [facility] Last Admin: 01/21/18 10:40 Dose: 40 mg Polyethylene Glycol (Miralax (For Daily Use) -) 17 gm PO BID [facility] Last Admin: 01/21/18 10:49 Dose: Not Given Pramipexole Dihydrochloride (Mirapex -) 0.25 mg PO BID [facility] Last Admin: 01/21/18 10:51 Dose: 0.25 mg Pregabalin (Lyrica -) 100 mg PO TID [facility] Last Admin: 01/21/18 05:50 Dose: 100 mg Rosuvastatin Calcium (Crestor -) 10 mg PO HS [facility] Last Admin: 01/20/18 21:50 Dose: 10 mg Senna (Senna -) 2 tab PO HS [facility] Last Admin: 01/20/18 21:50 Dose: 2 tab Solifenacin (Vesicare -) 10 mg PO DAILY [facility] Last Admin: 01/21/18 10:55 Dose: 10 mg - Objective Vital Signs: Vital Signs Temperature 98.2 F 01/21/18 06:13 Pulse Rate 79 01/21/18 06:13 Respiratory Rate 18 01/21/18 06:13 Blood Pressure 127/75 01/21/18 06:13 O2 Sat by Pulse Oximetry (%) 97 01/20/18 21:00 Constitutional: Yes: No Distress Eyes: Yes: Conjunctiva Clear Cardiovascular: Yes: Regular Rate and Rhythm, S1, S2 Respiratory: Yes: CTA Bilaterally Gastrointestinal: Yes: Normal Bowel Sounds, Soft, Abdomen, Obese. No: Tenderness Edema: Yes Labs: CBC, BMP 01/21/18 06:00 01/21/18 06:00 Assessment/Plan S/P CT guided bx parafacet tissue Discitis Fever- improved Await routine c/s, AFB/Fungal c/s Pending cultures empiric Vancomycin/ Cefepime
[2018-01-21] MEDS: VANCOMYCIN 1 GM PREMIX - 1 GM/200 ML BAG IVPB SCH ×2 (12:52→23:07)
[2018-01-21] MEDS: SENNOSIDES 8.6MG TABLET (FP) PO SCH (22:02)
[2018-01-21] MEDS: ROSUVASTATIN CA 10 MG TABLET (FP) PO SCH (22:03)
[2018-01-21] MEDS: LIDOCAINE PATCH REMOVAL MC SCH (22:05)
[2018-01-22] MEDS ORDERED: CEFEPIME HCL 2 GM VIAL (RESTRICTED TO ID) ONE ×3 (01:28→16:58)
[2018-01-22] MEDS ORDERED: DEXTROSE 5%-WATER 100 ML IVPB ONE ×3 (01:28→16:58)
[2018-01-22] MEDS: CEFEPIME 2 GM in DEXTROSE 5%-WATER 100 ML IVPB SCH ×3 (01:35→17:46)
[2018-01-22] MEDS: DOCUSATE SODIUM 100 MG CAPSULE (FP) PO SCH ×3 (05:55→22:28)
[2018-01-22] MEDS: PREGABALIN 50 MG CAPSULE PO SCH ×3 (05:55→22:29)
[2018-01-22] MEDS: morphine SULFATE 4 MG/ML VIAL IVPUSH PRN (05:56)
[2018-01-22] MEDS: LEVOTHYROXINE NA 50 MCG TABLET (FP) PO SCH (06:04)
[2018-01-22 07:14] LABS: BASO % 0.4 % (0-2.0); EOS % 1.4 % (0-4.5); HEMATOCRIT 32.5 % (32.4-45.2); HEMOGLOBIN 10.9 GM/dL (10.7-15.3); MCH 29.8 pg (25.7-33.7); MCHC 33.7 g/dl (32.0-36.0); MEAN CELL VOLUME 88.3 fl (80-96); NEUT % 64.2 % (42.8-82.8); PLATELET COUNT 412 K/MM3 (134-434); RBC 3.68 M/mm3 (3.60-5.2); RDW 14.4 % (11.6-15.6); WHITE BLOOD COUNT 7.4 K/mm3 (4.0-10.0)
[2018-01-22 07:35] LABS: ANION GAP 4 (8-16); BLOOD UREA NITROGEN 12 mg/dL (7-18); CALCIUM 8.6 mg/dL (8.5-10.1); CHLORIDE 97 mmol/L (98-107); CO2 33 mmol/L (21-32); CREATININE 0.6 mg/dL (0.55-1.02); GLUCOSE,RANDOM 93 mg/dL (74-106); POTASSIUM 4.8 mmol/L (3.5-5.1); SODIUM 134 mmol/L (136-145)
[2018-01-22] MEDS ORDERED: PT OWN MED DRAWER 7, Y5N ONE (08:50)
--- NOTE | 2018-01-22 08:59 | PN ---
Progress Note (short form) - Note Progress Note: NEUROSURGERY s/p CT guided parafacet tissue bx Less pain overall On vanco and cefepime for coverage PE: AF, VSS HEENT- NC, AT; Neck- supple; Cor- RR; Lungs- CTA; Abd- obese, benign; Ext- no sign of DVT CN- intact II-XII; Motor- 4+/5 UE; B LE 4/5 at least; Sensation- decreased L L4- 5-S1 to PP/LT/vibration Urine Cx- E Coli; Blood Cx- negative Gram stain negative, culture negative x 24 hours LS spine MRI- Heterogenous vertebral signals; L5-S1 DDD/spondylolisthesis; L5- S1 foramenal stenosis R > L; epidural signal changes MRI with maureen- L4-5 and L5-S1 disc enhancement and facet enhancement, circumferential epidural enhancement; R L2-3 intraspinal facet cyst with mass effect L5-S1 spondylolisthesis and stenosis; discitis/osteomyelitis/facet spondylitis 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
--- NOTE | 2018-01-22 10:04 | PN ---
Progress Note (short form) - Note Progress Note: Neurology History of Present Illness: 77 year old female here for worsening low back pain radiating to lower extremities and inability to ambulate at home. She reported b/l lower extremity pain for past several days but for last 3-4 weeks has discomfort in her feet radiating up to her back. She also states she has ongoing low back pain and is uncomfortable appearing in bed, holding on rails on sides. She states she is not able to ambulate. She has been on Lyrica and ordered for 100mg twice daily. CT L spine completed with chronic arthritic changes noted as well as antherolisthesis. She described the pain as sharp, pins and needles. Reportedly with recent fall at retirement. Is getting pain medication here and Dr. Castellanos consulted for futher pain mgmt, no follow up note. MRI L spine completed and showed L5 severe thecal sac compression. Discitis also noted, but no osteo evident. NSGY consulted. Lyrica increased to 100mg TID. Is note on Oxycontin 10mg as well. Compelted biopsy to evaluate underlying discitis. Not moving extremities and says she has pain but appears comfortable. Is on Cefepime and Vanco. NSGY note reviewed, recommended pain mgmt follow up. Active Medications Acetaminophen (Tylenol -) 650 mg PO Q6H PRN PRN Reason: PAIN LEVEL 1-5 Last Admin: 01/21/18 08:59 Dose: 650 mg Albuterol Sulfate (Ventolin Hfa Inhaler -) 1 puff IH Q6H PRN PRN Reason: ASTHMA Albuterol Sulfate (Ventolin Hfa Inhaler -) 2 puff IH Q6H PRN PRN Reason: ASTHMA Last Admin: 01/14/18 05:41 Dose: 2 puff Apixaban (Eliquis -) 5 mg PO BID [facility] Last Admin: 01/21/18 22:03 Dose: 5 mg Ascorbic Acid (Vitamin C -) 500 mg PO DAILY [facility] Last Admin: 01/21/18 10:48 Dose: 500 mg Budesonide/Formoterol Fumarate (Symbicort 80/4.5mcg -) 2 puff IH BID [facility] Last Admin: 01/21/18 22:04 Dose: 2 puff Cyanocobalamin (Vitamin B12 -) 2,500 mcg PO DAILY [facility] Last Admin: 01/21/18 10:39 Dose: 2,500 mcg Docusate Sodium (Colace -) 100 mg PO TID [facility] Last Admin: 01/22/18 05:55 Dose: 100 mg Ferrous Sulfate (Feosol -) 325 mg PO DAILY [facility] Last Admin: 01/21/18 10:40 Dose: 325 mg Vancomycin HCl (Vancomycin 1 Gm Premix -) 1 gm in 200 mls @ 133.333 mls/hr IVPB BID [facility] PRN Reason: Protocol Last Admin: 01/21/18 23:07 Dose: Not Given Cefepime HCl 2 gm/ Dextrose 100 mls @ 200 mls/hr IVPB Q8H-IV [facility] PRN Reason: Protocol Last Admin: 01/22/18 01:35 Dose: 200 mls/hr Lactobacillus Acidophilus (Bacid -) 1 tab PO DAILY [facility] Last Admin: 01/21/18 10:39 Dose: 1 tab Levothyroxine Sodium (Synthroid -) 50 mcg PO ACBK [facility] Last Admin: 01/22/18 06:04 Dose: 50 mcg Lidocaine (Lidoderm Patch -) 1 patch TP DAILY [facility] Last Admin: 01/21/18 10:40 Dose: 1 patch Losartan Potassium (Cozaar -) 50 mg PO DAILY [facility] Last Admin: 01/21/18 10:48 Dose: 50 mg Metoprolol Succinate (Toprol Xl -) 50 mg PO DAILY [facility] Last Admin: 01/21/18 10:48 Dose: 50 mg Miscellaneous (Lidoderm Patch Removal) 1 each MC DAILY@2200 [facility] Last Admin: 01/21/18 22:05 Dose: 1 each Oxycodone HCl (Oxycontin -) 10 mg PO BID [facility] Last Admin: 01/21/18 22:03 Dose: 10 mg Pantoprazole Sodium (Protonix -) 40 mg PO DAILY [facility] Last Admin: 01/21/18 10:40 Dose: 40 mg Polyethylene Glycol (Miralax (For Daily Use) -) 17 gm PO BID [facility] Last Admin: 01/21/18 22:03 Dose: 17 grams Pramipexole Dihydrochloride (Mirapex -) 0.25 mg PO BID [facility] Last Admin: 01/21/18 22:03 Dose: 0.25 mg Pregabalin (Lyrica -) 100 mg PO TID [facility] Last Admin: 01/22/18 05:55 Dose: 100 mg Rosuvastatin Calcium (Crestor -) 10 mg PO HS [facility] Last Admin: 01/21/18 22:03 Dose: 10 mg Senna (Senna -) 2 tab PO HS [facility] Last Admin: 01/21/18 22:02 Dose: 2 tab Solifenacin (Vesicare -) 10 mg PO DAILY [facility] Last Admin: 01/21/18 10:55 Dose: 10 mg *Physical Exam Vital Signs Temperature 98.3 F 01/22/18 06:01 Pulse Rate 71 01/22/18 06:01 Respiratory Rate 20 01/22/18 06:01 Blood Pressure 97/50 01/22/18 06:01 O2 Sat by Pulse Oximetry (%) 97 01/21/18 20:54 GENERAL: +Patient acutely in pain. Awake, alert, and fully oriented HEAD: No signs of trauma, normocephalic, atraumatic EYES: PERRLA, EOMI, sclera anicteric, conjunctiva clear ENT: Auricles normal inspection, hearing grossly normal, nares patent, oropharynx clear without exudates. Moist mucosa NECK: Normal ROM, supple, no lymphadenopathy, JVD, or masses LUNGS: No distress, speaks full sentences, clear to auscultation bilaterally HEART: Regular rate and rhythm, normal S1 and S2, no murmurs, rubs or gallops, peripheral pulses normal and equal bilaterally. ABDOMEN: Soft, nontender, normoactive bowel sounds. No guarding, no rebound. No masses EXTREMITIES: +Patient acutely tender across lower back bilaterally. Strength intact. Normal inspection, Normal range of motion, no edema. No clubbing or cyanosis. NEUROLOGICAL: Cranial nerves II through XII grossly intact. Limited leg raise 2+ /5, sensation intact to LT, gait deferred SKIN: Warm, Dry, normal turgor, no rashes or lesions noted. CBCD WBC 7.4 K/mm3 (4.0-10.0) 01/22/18 06:00 RBC 3.68 M/mm3 (3.60-5.2) 01/22/18 06:00 Hgb 10.9 GM/dL (10.7-15.3) 01/22/18 06:00 Hct 32.5 % (32.4-45.2) 01/22/18 06:00 MCV 88.3 fl (80-96) 01/22/18 06:00 MCHC 33.7 g/dl (32.0-36.0) 01/22/18 06:00 RDW 14.4 % (11.6-15.6) 01/22/18 06:00 Plt Count 412 K/MM3 (134-434) 01/22/18 06:00 MPV 7.0 fl (7.5-11.1) L 01/22/18 06:00 CMP Sodium 134 mmol/L (136-145) L 01/22/18 06:00 Potassium 4.8 mmol/L (3.5-5.1) 01/22/18 06:00 Chloride 97 mmol/L (98-107) L 01/22/18 06:00 Carbon Dioxide 33 mmol/L (21-32) H 01/22/18 06:00 Anion Gap 4 (8-16) L 01/22/18 06:00 BUN 12 mg/dL (7-18) 01/22/18 06:00 Creatinine 0.6 mg/dL (0.55-1.02) 01/22/18 06:00 Creat Clearance w eGFR > 60 (>60) 01/12/18 11:39 Calcium 8.6 mg/dL (8.5-10.1) 01/22/18 06:00 Total Bilirubin 0.7 mg/dL (0.2-1.0) D 01/12/18 11:39 AST 22 U/L (15-37) 01/12/18 11:39 ALT 15 U/L (12-78) 01/12/18 11:39 Alkaline Phosphatase 59 U/L (45-117) 01/12/18 11:39 Total Protein 6.3 g/dl (6.4-8.2) L 01/12/18 11:39 Albumin 2.9 g/dl (3.4-5.0) L 01/12/18 11:39 Imaging Cat Scan: Report Reviewed MRI L spine reviewed Plan 77 year old female here for worsening low back pain radiating to lower extremities and inability to ambulate at home. She reported b/l lower extremity pain for past several days but for last 3-4 weeks has discomfort in her feet radiating up to her back. She also states she has ongoing low back pain and is uncomfortable appearing in bed, holding on rails on sides. She states she is not able to ambulate. She has been on Lyrica and ordered for 100mg twice daily. CT L spine completed with chronic arthritic changes noted as well as antherolisthesis. Reportedly with recent fall at retirement. MRI L spine reviewed, severe L5 thecal sac compression, NSGY following, note reviewed Increased Lyrica to 100mg three times daily Also on Oxycontin 10mg Defer to pain mgmt regarding further pain medication adjustments Physical therapy as tolerated Biopsy completed, follow up results Hydration recommended Fall precautions PT/OT as tolerated Likely to require rehab
[2018-01-22] MEDS: PANTOPRAZOLE 40 MG TABLET (FP) PO SCH (10:18)
[2018-01-22] MEDS: CYANOCOBALAMIN 1,000 MCG TABLET (FP) PO SCH (10:18)
[2018-01-22] MEDS: oxyCODONE HCL 10 MG SUSTAINED ACTING TABLET PO SCH ×2 (10:18→22:30)
[2018-01-22] MEDS: FERROUS SO4 325 MG TABLET (FP) PO SCH (10:18)
[2018-01-22] MEDS: LOSARTAN POTASSIUM 50 MG TABLET (FP) PO SCH ×2 (10:18→10:53)
[2018-01-22] MEDS: SOLIFENACIN SUCCINATE 5 MG TAB (FP) PO SCH (10:19)
[2018-01-22] MEDS: APIXABAN 5 MG TABLET PO SCH ×2 (10:19→22:26)
[2018-01-22] MEDS: LACTOBACILLUS ACIDOPHILUS 1 TABLET PO SCH (10:19)
[2018-01-22] MEDS: BUDESONIDE/FORMETEROL FUMARATE 80/4.5 mcg INHALER IH SCH ×2 (10:19→22:30)
[2018-01-22] MEDS: ASCORBIC ACID 500 MG TABLET (FP) PO SCH (10:20)
[2018-01-22] MEDS: LIDOCAINE 5% TOPICAL PATCH TP SCH (10:23)
[2018-01-22] MEDS: POLYETHYLENE GLYCOL 3350 119 GM BTL PO SCH ×2 (10:23→22:30)
[2018-01-22] MEDS: PRAMIPEXOLE DIHYDROCHLORIDE 0.25 MG TABLET PO SCH ×2 (10:23→22:26)
[2018-01-22] MEDS: VANCOMYCIN 1 GM PREMIX - 1 GM/200 ML BAG IVPB SCH (10:24)
--- NOTE | 2018-01-22 11:23 | PN ---
Progress Note, Physician Chief Complaint: Pt lying in bed in no acute distress. Reports LBP w/ radiation to LEs , pins and needles. slight improvement. otherwise, denies chest pain, sob, n/v/d - Current Medication List Current Medications: Active Medications Acetaminophen (Tylenol -) 650 mg PO Q6H PRN PRN Reason: PAIN LEVEL 1-5 Last Admin: 01/21/18 08:59 Dose: 650 mg Albuterol Sulfate (Ventolin Hfa Inhaler -) 1 puff IH Q6H PRN PRN Reason: ASTHMA Albuterol Sulfate (Ventolin Hfa Inhaler -) 2 puff IH Q6H PRN PRN Reason: ASTHMA Last Admin: 01/14/18 05:41 Dose: 2 puff Apixaban (Eliquis -) 5 mg PO BID [facility] Last Admin: 01/22/18 10:19 Dose: 5 mg Ascorbic Acid (Vitamin C -) 500 mg PO DAILY [facility] Last Admin: 01/22/18 10:20 Dose: 500 mg Budesonide/Formoterol Fumarate (Symbicort 80/4.5mcg -) 2 puff IH BID [facility] Last Admin: 01/22/18 10:19 Dose: 2 puff Cyanocobalamin (Vitamin B12 -) 2,500 mcg PO DAILY [facility] Last Admin: 01/22/18 10:18 Dose: 2,500 mcg Docusate Sodium (Colace -) 100 mg PO TID [facility] Last Admin: 01/22/18 05:55 Dose: 100 mg Ferrous Sulfate (Feosol -) 325 mg PO DAILY [facility] Last Admin: 01/22/18 10:18 Dose: 325 mg Vancomycin HCl (Vancomycin 1 Gm Premix -) 1 gm in 200 mls @ 133.333 mls/hr IVPB BID [facility] PRN Reason: Protocol Last Admin: 01/22/18 10:24 Dose: Not Given Cefepime HCl 2 gm/ Dextrose 100 mls @ 200 mls/hr IVPB Q8H-IV [facility] PRN Reason: Protocol Last Admin: 01/22/18 10:17 Dose: 200 mls/hr Lactobacillus Acidophilus (Bacid -) 1 tab PO DAILY [facility] Last Admin: 01/22/18 10:19 Dose: 1 tab Levothyroxine Sodium (Synthroid -) 50 mcg PO ACBK [facility] Last Admin: 05/17/18 06:04 Dose: 50 mcg Lidocaine (Lidoderm Patch -) 1 patch TP DAILY [facility] Last Admin: 01/22/18 10:23 Dose: 1 patch Losartan Potassium (Cozaar -) 50 mg PO DAILY [facility] Last Admin: 01/22/18 10:53 Dose: Not Given Metoprolol Succinate (Toprol Xl -) 50 mg PO DAILY [facility] Last Admin: 01/22/18 10:53 Dose: Not Given Miscellaneous (Lidoderm Patch Removal) 1 each MC DAILY@2200 [facility] Last Admin: 01/21/18 22:05 Dose: 1 each Oxycodone HCl (Oxycontin -) 10 mg PO BID [facility] Last Admin: 01/22/18 10:18 Dose: 10 mg Pantoprazole Sodium (Protonix -) 40 mg PO DAILY [facility] Last Admin: 01/22/18 10:18 Dose: 40 mg Polyethylene Glycol (Miralax (For Daily Use) -) 17 gm PO BID [facility] Last Admin: 01/22/18 10:23 Dose: 17 grams Pramipexole Dihydrochloride (Mirapex -) 0.25 mg PO BID [facility] Last Admin: 01/22/18 10:23 Dose: 0.25 mg Pregabalin (Lyrica -) 100 mg PO TID [facility] Last Admin: 01/22/18 05:55 Dose: 100 mg Rosuvastatin Calcium (Crestor -) 10 mg PO [facility] Last Admin: 01/21/18 22:03 Dose: 10 mg Senna (Senna -) 2 tab PO HS [facility] Last Admin: 01/21/18 22:02 Dose: 2 tab Solifenacin (Vesicare -) 10 mg PO DAILY [facility] Last Admin: 01/22/18 10:19 Dose: 10 mg - Objective Vital Signs: Vital Signs Temperature 98.3 F 01/22/18 06:01 Pulse Rate 71 01/22/18 06:01 Respiratory Rate 20 01/22/18 06:01 Blood Pressure 97/50 01/22/18 06:01 O2 Sat by Pulse Oximetry (%) 97 01/21/18 20:54 Constitutional: Yes: Well Nourished, No Distress Cardiovascular: Yes: Pulse Irregular. No: Gallop, Murmur Respiratory: Yes: WNL, Regular, CTA Bilaterally. No: Accessory Muscle Use, SOB , Tachypnea, Wheezes Gastrointestinal: Yes: WNL, Normal Bowel Sounds, Soft, Abdomen, Obese. No: Distention, Tenderness Genitourinary: Yes: Incontinence Musculoskeletal: Yes: Back Pain Edema: No Neurological: Yes: Alert, Oriented, Numbness (LE's), Tingling Psychiatric: Yes: WNL, Alert, Oriented Labs: CBC, BMP 01/22/18 06:00 01/22/18 06:00 Problem List - Problems (1) UTI (urinary tract infection) Code(s): N39.0 - URINARY TRACT INFECTION, SITE NOT SPECIFIED Qualifiers: Urinary tract infection type: site unspecified Hematuria presence: with hematuria Qualified Code(s): N39.0 - Urinary tract infection, site not specified; R31.9 - Hematuria, unspecified; R31.9 - Hematuria, unspecified (2) Leukocytosis Code(s): D72.829 - ELEVATED WHITE BLOOD CELL COUNT, UNSPECIFIED (3) Fall Code(s): W19.XXXA - UNSPECIFIED FALL, INITIAL ENCOUNTER (4) Low back pain Code(s): M54.5 - LOW BACK PAIN Qualifiers: Chronicity: acute Back pain laterality: bilateral (5) HLD (hyperlipidemia) Code(s): E78.5 - HYPERLIPIDEMIA, UNSPECIFIED (6) HTN (hypertension) Code(s): I10 - ESSENTIAL (PRIMARY) HYPERTENSION Qualifiers: Hypertension type: essential hypertension Qualified Code(s): I10 - Essential (primary) hypertension (7) Hypothyroid Code(s): E03.9 - HYPOTHYROIDISM, UNSPECIFIED (8) Afib Code(s): I48.91 - UNSPECIFIED ATRIAL FIBRILLATION Qualifiers: Atrial fibrillation type: chronic Qualified Code(s): I48.2 - Chronic atrial fibrillation (9) CAD (coronary artery disease) Code(s): I25.10 - ATHSCL HEART DISEASE OF [place] CORONARY ARTERY W/O ANG PCTRS (10) COPD (chronic obstructive pulmonary disease) Code(s): J44.9 - CHRONIC OBSTRUCTIVE PULMONARY DISEASE, UNSPECIFIED (11) Osteoarthritis Code(s): M19.90 - UNSPECIFIED OSTEOARTHRITIS, UNSPECIFIED SITE Qualifiers: Osteoarthritis location: spine Spinal region: cervical (12) History of breast cancer Code(s): Z85.3 - PERSONAL HISTORY OF MALIGNANT NEOPLASM OF BREAST (13) Sepsis Code(s): A41.9 - SEPSIS, UNSPECIFIED ORGANISM Assessment/Plan (1) Sepsis Assessment/Plan: resolved Code(s): A41.9 - SEPSIS, UNSPECIFIED ORGANISM (2) UTI (urinary tract infection) Assessment/Plan: ecoli-uti ceftriaxone 5/5 completed ID following Code(s): N39.0 - URINARY TRACT INFECTION, SITE NOT SPECIFIED Qualifiers: Urinary tract infection type: site unspecified Hematuria presence: with hematuria Qualified Code(s): N39.0 - Urinary tract infection, site not specified; R31.9 - Hematuria, unspecified; R31.9 - Hematuria, unspecified (3) Leukocytosis Assessment/Plan: resolved Code(s): D72.829 - ELEVATED WHITE BLOOD CELL COUNT, UNSPECIFIED (4) Fall Assessment/Plan: s/p fall w/out loc/head trauma 2 weeks ago, mechanical coccyx/lumbar/thoracic xrays without acute fracture fall precautions Code(s): W19.XXXA - UNSPECIFIED FALL, INITIAL ENCOUNTER (5) Low back pain Assessment/Plan: worsening low back pain w/ radiation to LE's inability to ambulate lumbar CT without acute findings MRI- severe thecal compression, concerns for diskitis on empiric cefepime vanco on hold- elevated trough esr/crp trending down s/p spinal aspiration, c/s with no growth tylenol/lyrica oxycontin PT neuro following pain management reconsulted to for better pain control can try outpt steroid injection for lbp Code(s): M54.5 - LOW BACK PAIN Qualifiers: Chronicity: acute Back pain laterality: bilateral (6) HLD (hyperlipidemia) Assessment/Plan: chronic continue crestor Code(s): E78.5 - HYPERLIPIDEMIA, UNSPECIFIED (7) HTN (hypertension) Assessment/Plan: controlled continue metoprolol bp adequately controlled, will hold hct for now Code(s): I10 - ESSENTIAL (PRIMARY) HYPERTENSION Qualifiers: Hypertension type: essential hypertension Qualified Code(s): I10 - Essential (primary) hypertension (8) Hypothyroid Assessment/Plan: chronic continue levothyroxine Code(s): E03.9 - HYPOTHYROIDISM, UNSPECIFIED (9) Afib Assessment/Plan: controlled continue metoprolol/ eliquis Code(s): I48.91 - UNSPECIFIED ATRIAL FIBRILLATION Qualifiers: Atrial fibrillation type: chronic Qualified Code(s): I48.2 - Chronic atrial fibrillation (10) CAD (coronary artery disease) Assessment/Plan: stable continue statin Code(s): I25.10 - ATHSCL HEART DISEASE OF [place] CORONARY ARTERY W/O ANG PCTRS (11) COPD (chronic obstructive pulmonary disease) Assessment/Plan: chronic continue current management Code(s): J44.9 - CHRONIC OBSTRUCTIVE PULMONARY DISEASE, UNSPECIFIED (12) Osteoarthritis Assessment/Plan: chronic Tylenol PT Code(s): M19.90 - UNSPECIFIED OSTEOARTHRITIS, UNSPECIFIED SITE Qualifiers: Osteoarthritis location: spine Spinal region: cervical (13) History of breast cancer Assessment/Plan: s/p chemp, xrt, left partial mastectomy Code(s): Z85.3 - PERSONAL HISTORY OF MALIGNANT NEOPLASM OF BREAST Dispo: 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
--- NOTE | 2018-01-22 18:52 | PN ---
Progress Note, Physician History of Present Illness: S/P CT guided bx of parafacet tissue Gram stain, routine c/s, AFB/ Fungal c/s prelim negative Awake,alert Still with C/O bilateral LE numbness and weakness No c/o fever/ chills Afebrile WBC WNL - Current Medication List Current Medications: Active Medications Acetaminophen (Tylenol -) 650 mg PO Q6H PRN PRN Reason: PAIN LEVEL 1-5 Last Admin: 01/21/18 08:59 Dose: 650 mg Albuterol Sulfate (Ventolin Hfa Inhaler -) 1 puff IH Q6H PRN PRN Reason: ASTHMA Albuterol Sulfate (Ventolin Hfa Inhaler -) 2 puff IH Q6H PRN PRN Reason: ASTHMA Last Admin: 01/14/18 05:41 Dose: 2 puff Apixaban (Eliquis -) 5 mg PO BID [facility] Last Admin: 01/22/18 10:19 Dose: 5 mg Ascorbic Acid (Vitamin C -) 500 mg PO DAILY [facility] Last Admin: 01/22/18 10:20 Dose: 500 mg Budesonide/Formoterol Fumarate (Symbicort 80/4.5mcg -) 2 puff IH BID [facility] Last Admin: 01/22/18 10:19 Dose: 2 puff Cyanocobalamin (Vitamin B12 -) 2,500 mcg PO DAILY [facility] Last Admin: 01/22/18 10:18 Dose: 2,500 mcg Docusate Sodium (Colace -) 100 mg PO TID [facility] Last Admin: 01/22/18 14:44 Dose: 100 mg Ferrous Sulfate (Feosol -) 325 mg PO DAILY [facility] Last Admin: 01/22/18 10:18 Dose: 325 mg Vancomycin HCl (Vancomycin 1 Gm Premix -) 1 gm in 200 mls @ 133.333 mls/hr IVPB BID [facility] PRN Reason: Protocol Last Admin: 01/22/18 10:24 Dose: Not Given Cefepime HCl 2 gm/ Dextrose 100 mls @ 200 mls/hr IVPB Q8H-IV [facility] PRN Reason: Protocol Last Admin: 01/22/18 17:46 Dose: 200 mls/hr Lactobacillus Acidophilus (Bacid -) 1 tab PO DAILY [facility] Last Admin: 01/22/18 10:19 Dose: 1 tab Levothyroxine Sodium (Synthroid -) 50 mcg PO ACBK [facility] Last Admin: 01/22/18 06:04 Dose: 50 mcg Lidocaine (Lidoderm Patch -) 1 patch TP DAILY [facility] Last Admin: 01/22/18 10:23 Dose: 1 patch Losartan Potassium (Cozaar -) 50 mg PO DAILY [facility] Last Admin: 01/22/18 10:53 Dose: Not Given Metoprolol Succinate (Toprol Xl -) 50 mg PO DAILY [facility] Last Admin: 01/22/18 10:53 Dose: Not Given Miscellaneous (Lidoderm Patch Removal) 1 each MC DAILY@2200 [facility] Last Admin: 01/21/18 22:05 Dose: 1 each Oxycodone HCl (Oxycontin -) 10 mg PO BID [facility] Last Admin: 01/22/18 10:18 Dose: 10 mg Pantoprazole Sodium (Protonix -) 40 mg PO DAILY [facility] Last Admin: 01/22/18 10:18 Dose: 40 mg Polyethylene Glycol (Miralax (For Daily Use) -) 17 gm PO BID [facility] Last Admin: 01/22/18 10:23 Dose: 17 grams Pramipexole Dihydrochloride (Mirapex -) 0.25 mg PO BID [facility] Last Admin: 01/22/18 10:23 Dose: 0.25 mg Pregabalin (Lyrica -) 100 mg PO TID [facility] Last Admin: 01/22/18 14:44 Dose: 100 mg Rosuvastatin Calcium (Crestor -) 10 mg PO HS [facility] Last Admin: 01/21/18 22:03 Dose: 10 mg Senna (Senna -) 2 tab PO [facility] Last Admin: 01/21/18 22:02 Dose: 2 tab Solifenacin (Vesicare -) 10 mg PO DAILY [facility] Last Admin: 01/22/18 10:19 Dose: 10 mg - Objective Vital Signs: Vital Signs Temperature 98.3 F 01/22/18 17:59 Pulse Rate 72 01/22/18 17:59 Respiratory Rate 20 01/22/18 17:59 Blood Pressure 119/66 01/22/18 17:59 O2 Sat by Pulse Oximetry (%) 97 01/21/18 20:54 Constitutional: Yes: No Distress Cardiovascular: Yes: Regular Rate and Rhythm, S1, S2 Respiratory: Yes: CTA Bilaterally Gastrointestinal: Yes: Normal Bowel Sounds, Soft Edema: Yes Labs: CBC, BMP 01/22/18 06:00 01/22/18 06:00 Assessment/Plan S/P CT guided bx parafacet tissue Discitis Fever- improved Await final c/s result Hold vancomycin ( elevated trough ) Continue cefepime
[2018-01-22] MEDS: SENNOSIDES 8.6MG TABLET (FP) PO SCH (22:26)
[2018-01-22] MEDS: ROSUVASTATIN CA 10 MG TABLET (FP) PO SCH (22:27)
[2018-01-22] MEDS: LIDOCAINE PATCH REMOVAL MC SCH (22:31)
[2018-01-23] MEDS ORDERED: DEXTROSE 5%-WATER 100 ML IVPB ONE ×4 (01:06→22:52)
[2018-01-23] MEDS ORDERED: CEFEPIME HCL 2 GM VIAL (RESTRICTED TO ID) ONE ×4 (01:07→22:53)
[2018-01-23] MEDS: CEFEPIME 2 GM in DEXTROSE 5%-WATER 100 ML IVPB SCH ×3 (01:09→19:21)
[2018-01-23] MEDS: ACETAMINOPHEN 325 MG TABLET (FP) PO PRN (01:10)
[2018-01-23] MEDS: LEVOTHYROXINE NA 50 MCG TABLET (FP) PO SCH (06:06)
[2018-01-23] MEDS: PREGABALIN 50 MG CAPSULE PO SCH ×3 (06:06→22:16)
[2018-01-23] MEDS: DOCUSATE SODIUM 100 MG CAPSULE (FP) PO SCH ×3 (06:06→22:17)
--- NOTE | 2018-01-23 08:17 | PN ---
Progress Note (short form) - Note Progress Note: NEUROSURGERY More back and hip pain this am Reportedly OOB yesterday On vanco and cefepime PE: AF, VSS HEENT- NC, AT; Neck- supple; Cor- RR; Lungs- CTA; Abd- obese, benign; Ext- no sign of DVT CN- intact II-XII; Motor- 4+/5 UE; B LE prox 3, distal 4-/5 at least; Sensation - decreased L L4-5-S1 to PP/LT/vibration Urine Cx- E Coli; Blood Cx- negative Gram stain negative, culture negative x 24 hours L5-S1 spondylolisthesis and stenosis; discitis/osteomyelitis/facet spondylitis For half-way iv abx per ID Increase to Oxycontin 20 mg bid (though balanced against her age/other side effects) Encouraged OOB/increased activity PT
--- NOTE | 2018-01-23 09:50 | PN ---
Progress Note (short form) - Note Progress Note: Neurology History of Present Illness: 77 year old female here for worsening low back pain radiating to lower extremities and inability to ambulate at home. She reported b/l lower extremity pain for past several days but for last 3-4 weeks has discomfort in her feet radiating up to her back. She also states she has ongoing low back pain and is uncomfortable appearing in bed, holding on rails on sides. She states she is not able to ambulate. She has been on Lyrica and ordered for 100mg twice daily. CT L spine completed with chronic arthritic changes noted as well as antherolisthesis. She described the pain as sharp, pins and needles. Reportedly with recent fall at shelter. Is getting pain medication here and Dr. Castellanos consulted for futher pain mgmt, no follow up note. MRI L spine completed and showed L5 severe thecal sac compression. Discitis also noted, but no osteo evident. NSGY consulted. Lyrica increased to 100mg TID. Is now on Oxycontin 20mg as well. Compelted biopsy to evaluate underlying discitis. Is on Cefepime and Vanco. NSGY note reviewed, recommended pain mgmt follow up. States she is in pain and can't move legs though LLE bent at knee and she does report going from bed to chair. Encouraged patient for increased activity and effort as possible. Participate in physical therapy if able. Active Medications Acetaminophen (Tylenol -) 650 mg PO Q6H PRN PRN Reason: PAIN LEVEL 1-5 Last Admin: 01/23/18 01:10 Dose: 650 mg Albuterol Sulfate (Ventolin Hfa Inhaler -) 1 puff IH Q6H PRN PRN Reason: ASTHMA Albuterol Sulfate (Ventolin Hfa Inhaler -) 2 puff IH Q6H PRN PRN Reason: ASTHMA Last Admin: 01/14/18 05:41 Dose: 2 puff Apixaban (Eliquis -) 5 mg PO BID [facility] Last Admin: 01/22/18 22:26 Dose: 5 mg Ascorbic Acid (Vitamin C -) 500 mg PO DAILY [facility] Last Admin: 01/22/18 10:20 Dose: 500 mg Budesonide/Formoterol Fumarate (Symbicort 80/4.5mcg -) 2 puff IH BID [facility] Last Admin: 01/22/18 22:30 Dose: 2 puff Cyanocobalamin (Vitamin B12 -) 2,500 mcg PO DAILY [facility] Last Admin: 01/22/18 10:18 Dose: 2,500 mcg Docusate Sodium (Colace -) 100 mg PO TID [facility] Last Admin: 01/23/18 06:06 Dose: 100 mg Ferrous Sulfate (Feosol -) 325 mg PO DAILY [facility] Last Admin: 01/22/18 10:18 Dose: 325 mg Cefepime HCl 2 gm/ Dextrose 100 mls @ 200 mls/hr IVPB Q8H-IV NICOLE PRN Reason: Protocol Last Admin: 01/23/18 01:09 Dose: 200 mls/hr Lactobacillus Acidophilus (Bacid -) 1 tab PO DAILY [facility] Last Admin: 01/22/18 10:19 Dose: 1 tab Levothyroxine Sodium (Synthroid -) 50 mcg PO ACBK [facility] Last Admin: 01/23/18 06:06 Dose: 50 mcg Lidocaine (Lidoderm Patch -) 1 patch TP DAILY [facility] Last Admin: 01/22/18 10:23 Dose: 1 patch Losartan Potassium (Cozaar -) 50 mg PO DAILY [facility] Last Admin: 01/22/18 10:53 Dose: Not Given Metoprolol Succinate (Toprol Xl -) 50 mg PO DAILY [facility] Last Admin: 01/22/18 10:53 Dose: Not Given Miscellaneous (Lidoderm Patch Removal) 1 each MC DAILY@2200 [facility] Last Admin: 01/22/18 22:31 Dose: 1 each Oxycodone HCl (Oxycontin -) 20 mg PO BID [facility] Pantoprazole Sodium (Protonix -) 40 mg PO DAILY [facility] Last Admin: 01/22/18 10:18 Dose: 40 mg Polyethylene Glycol (Miralax (For Daily Use) -) 17 gm PO BID [facility] Last Admin: 01/22/18 22:30 Dose: Not Given Pramipexole Dihydrochloride (Mirapex -) 0.25 mg PO BID [facility] Last Admin: 01/22/18 22:26 Dose: 0.25 mg Pregabalin (Lyrica -) 100 mg PO TID [facility] Last Admin: 01/23/18 06:06 Dose: 100 mg Rosuvastatin Calcium (Crestor -) 10 mg PO HS [facility] Last Admin: 01/22/18 22:27 Dose: 10 mg Senna (Senna -) 2 tab PO HS NICO[facility] Last Admin: 01/22/18 22:26 Dose: 2 tab Solifenacin (Vesicare -) 10 mg PO DAILY [facility] Last Admin: 01/22/18 10:19 Dose: 10 mg *Physical Exam Vital Signs Period Temp Pulse Resp BP Sys/Bocanegra Pulse Ox Last 24 Hr 97.7 F-98.4 F 63-81 20-20 108-119/55-66 97 GENERAL: +Patient acutely in pain. Awake, alert, and fully oriented HEAD: No signs of trauma, normocephalic, atraumatic EYES: PERRLA, EOMI, sclera anicteric, conjunctiva clear ENT: Auricles normal inspection, hearing grossly normal, nares patent, oropharynx clear without exudates. Moist mucosa NECK: Normal ROM, supple, no lymphadenopathy, JVD, or masses LUNGS: No distress, speaks full sentences, clear to auscultation bilaterally HEART: Regular rate and rhythm, normal S1 and S2, no murmurs, rubs or gallops, peripheral pulses normal and equal bilaterally. ABDOMEN: Soft, nontender, normoactive bowel sounds. No guarding, no rebound. No masses NEUROLOGICAL: Cranial nerves II through XII grossly intact. Limited leg raise, but LLE bent and in place in bed SKIN: Warm, Dry, normal turgor, no rashes or lesions noted. CBCD WBC 7.4 K/mm3 (4.0-10.0) 01/22/18 06:00 RBC 3.68 M/mm3 (3.60-5.2) 01/22/18 06:00 Hgb 10.9 GM/dL (10.7-15.3) 01/22/18 06:00 Hct 32.5 % (32.4-45.2) 01/22/18 06:00 MCV 88.3 fl (80-96) 01/22/18 06:00 MCHC 33.7 g/dl (32.0-36.0) 01/22/18 06:00 RDW 14.4 % (11.6-15.6) 01/22/18 06:00 Plt Count 412 K/MM3 (134-434) 01/22/18 06:00 MPV 7.0 fl (7.5-11.1) L 01/22/18 06:00 CMP Sodium 134 mmol/L (136-145) L 01/22/18 06:00 Potassium 4.8 mmol/L (3.5-5.1) 01/22/18 06:00 Chloride 97 mmol/L (98-107) L 01/22/18 06:00 Carbon Dioxide 33 mmol/L (21-32) H 01/22/18 06:00 Anion Gap 4 (8-16) L 01/22/18 06:00 BUN 12 mg/dL (7-18) 01/22/18 06:00 Creatinine 0.6 mg/dL (0.55-1.02) 01/22/18 06:00 Creat Clearance w eGFR > 60 (>60) 01/12/18 11:39 Calcium 8.6 mg/dL (8.5-10.1) 01/22/18 06:00 Total Bilirubin 0.7 mg/dL (0.2-1.0) D 01/12/18 11:39 AST 22 U/L (15-37) 01/12/18 11:39 ALT 15 U/L (12-78) 01/12/18 11:39 Alkaline Phosphatase 59 U/L (45-117) 01/12/18 11:39 Total Protein 6.3 g/dl (6.4-8.2) L 01/12/18 11:39 Albumin 2.9 g/dl (3.4-5.0) L 01/12/18 11:39 Imaging Cat Scan: Report Reviewed MRI L spine reviewed Plan 77 year old female here for worsening low back pain radiating to lower extremities and inability to ambulate at home. She reported b/l lower extremity pain for past several days but for last 3-4 weeks has discomfort in her feet radiating up to her back. She also states she has ongoing low back pain and is uncomfortable appearing in bed, holding on rails on sides. She states she is not able to ambulate. She has been on Lyrica and ordered for 100mg twice daily. CT L spine completed with chronic arthritic changes noted as well as antherolisthesis. Reportedly with recent fall at shelter. MRI L spine reviewed, severe L5 thecal sac compression, NSGY following, note reviewed Increased Lyrica to 100mg three times daily Also on Oxycontin 20mg Defer to pain mgmt regarding further pain medication adjustments Encouraged increased activity Physical therapy as tolerated Biopsy completed, follow up results Hydration recommended Fall precautions PT/OT as tolerated Likely to require rehab
[2018-01-23] MEDS: LACTOBACILLUS ACIDOPHILUS 1 TABLET PO SCH (10:52)
[2018-01-23] MEDS: CYANOCOBALAMIN 1,000 MCG TABLET (FP) PO SCH (10:52)
[2018-01-23] MEDS: ASCORBIC ACID 500 MG TABLET (FP) PO SCH (10:52)
[2018-01-23] MEDS: LOSARTAN POTASSIUM 50 MG TABLET (FP) PO SCH (10:53)
[2018-01-23] MEDS: FERROUS SO4 325 MG TABLET (FP) PO SCH (10:53)
[2018-01-23] MEDS: PANTOPRAZOLE 40 MG TABLET (FP) PO SCH (10:53)
[2018-01-23] MEDS: BUDESONIDE/FORMETEROL FUMARATE 80/4.5 mcg INHALER IH SCH ×2 (10:53→22:15)
[2018-01-23] MEDS: PRAMIPEXOLE DIHYDROCHLORIDE 0.25 MG TABLET PO SCH ×2 (10:54→22:17)
[2018-01-23] MEDS: APIXABAN 5 MG TABLET PO SCH ×2 (10:54→22:16)
[2018-01-23] MEDS: LIDOCAINE 5% TOPICAL PATCH TP SCH (10:54)
[2018-01-23] MEDS: SOLIFENACIN SUCCINATE 5 MG TAB (FP) PO SCH (10:54)
[2018-01-23] MEDS: POLYETHYLENE GLYCOL 3350 119 GM BTL PO SCH ×2 (10:54→22:17)
[2018-01-23] MEDS: oxyCODONE HCL 20 MG SUSTAINED ACTING TABLET PO SCH ×2 (10:55→22:16)
[2018-01-23] MEDS ORDERED: PICC LINE 8 ML FLUSH PROTOCOL IVPUSH PRN (11:50)
--- NOTE | 2018-01-23 12:04 | PN ---
Progress Note, Physician History of Present Illness: S/P CT guided bx of parafacet tissue Gram stain, routine c/s, AFB/ Fungal c/s prelim negative Awake,alert OOB in chair C/O numbness of feet, low back pain No c/o fever/ chills Afebrile WBC WNL ESR, CRP improved - Current Medication List Current Medications: Active Medications Acetaminophen (Tylenol -) 650 mg PO Q6H PRN PRN Reason: PAIN LEVEL 1-5 Last Admin: 01/23/18 01:10 Dose: 650 mg Albuterol Sulfate (Ventolin Hfa Inhaler -) 1 puff IH Q6H PRN PRN Reason: ASTHMA Albuterol Sulfate (Ventolin Hfa Inhaler -) 2 puff IH Q6H PRN PRN Reason: ASTHMA Last Admin: 01/14/18 05:41 Dose: 2 puff Apixaban (Eliquis -) 5 mg PO BID [facility] Last Admin: 01/23/18 10:54 Dose: 5 mg Ascorbic Acid (Vitamin C -) 500 mg PO DAILY [facility] Last Admin: 01/23/18 10:52 Dose: 500 mg Budesonide/Formoterol Fumarate (Symbicort 80/4.5mcg -) 2 puff IH BID [facility] Last Admin: 01/23/18 10:53 Dose: 2 puff Cyanocobalamin (Vitamin B12 -) 2,500 mcg PO DAILY [facility] Last Admin: 01/23/18 10:52 Dose: 2,500 mcg Docusate Sodium (Colace -) 100 mg PO TID [facility] Last Admin: 01/23/18 06:06 Dose: 100 mg Ferrous Sulfate (Feosol -) 325 mg PO DAILY [facility] Last Admin: 01/23/18 10:53 Dose: 325 mg IV Flush (Picc Line Flush) 8 ml IVPUSH PRN PRN PRN Reason: Protocol Cefepime HCl 2 gm/ Dextrose 100 mls @ 200 mls/hr IVPB Q8H-IV NICOLE PRN Reason: Protocol Last Admin: 01/23/18 10:52 Dose: 200 mls/hr Lactobacillus Acidophilus (Bacid -) 1 tab PO DAILY [facility] Last Admin: 01/23/18 10:52 Dose: 1 tab Levothyroxine Sodium (Synthroid -) 50 mcg PO ACBK [facility] Last Admin: 01/23/18 06:06 Dose: 50 mcg Lidocaine (Lidoderm Patch -) 1 patch TP DAILY [facility] Last Admin: 01/23/18 10:54 Dose: 1 patch Losartan Potassium (Cozaar -) 50 mg PO DAILY [facility] Last Admin: 01/23/18 10:53 Dose: 50 mg Metoprolol Succinate (Toprol Xl -) 50 mg PO DAILY [facility] Last Admin: 01/23/18 10:53 Dose: 50 mg Miscellaneous (Lidoderm Patch Removal) 1 each MC DAILY@2200 [facility] Last Admin: 01/22/18 22:31 Dose: 1 each Oxycodone HCl (Oxycontin -) 20 mg PO BID [facility] Last Admin: 01/23/18 10:55 Dose: 20 mg Pantoprazole Sodium (Protonix -) 40 mg PO DAILY [facility] Last Admin: 01/23/18 10:53 Dose: 40 mg Polyethylene Glycol (Miralax (For Daily Use) -) 17 gm PO BID [facility] Last Admin: 01/23/18 10:54 Dose: 17 grams Pramipexole Dihydrochloride (Mirapex -) 0.25 mg PO BID [facility] Last Admin: 01/23/18 10:54 Dose: 0.25 mg Pregabalin (Lyrica -) 100 mg PO TID [facility] Last Admin: 01/23/18 06:06 Dose: 100 mg Rosuvastatin Calcium (Crestor -) 10 mg PO [facility] Last Admin: 01/22/18 22:27 Dose: 10 mg Senna (Senna -) 2 tab PO [facility] Last Admin: 01/22/18 22:26 Dose: 2 tab Solifenacin (Vesicare -) 10 mg PO DAILY [facility] Last Admin: 01/23/18 10:54 Dose: 10 mg - Objective Vital Signs: Vital Signs Temperature 97.7 F 01/23/18 06:00 Pulse Rate 63 01/23/18 06:00 Respiratory Rate 20 01/23/18 06:00 Blood Pressure 114/55 01/23/18 06:00 O2 Sat by Pulse Oximetry (%) 97 01/22/18 21:00 Constitutional: Yes: No Distress Eyes: Yes: Conjunctiva Clear Cardiovascular: Yes: Regular Rate and Rhythm, S1, S2 Respiratory: Yes: CTA Bilaterally Gastrointestinal: Yes: Normal Bowel Sounds, Soft. No: Tenderness Edema: Yes Labs: CBC, BMP 01/22/18 06:00 01/22/18 06:00 Assessment/Plan S/P CT guided bx parafacet tissue Discitis Fever- improved Case discussed with Dr Ibrahim Will continue empiric antibiotic therapy for discitis with vancomycin 1gm IVPB q12h cefepime 2gm IVPB q12h for total 6w course of therapy
--- NOTE | 2018-01-23 13:51 | DS ---
Physical Examination Vital Signs: Vital Signs Temperature 36.5 C 01/23/18 06:00 Pulse Rate 63 01/23/18 06:00 Respiratory Rate 20 01/23/18 06:00 Blood Pressure 114/55 01/23/18 06:00 O2 Sat by Pulse Oximetry (%) 97 01/22/18 21:00 Constitutional: Yes: Well Nourished, No Distress, Calm Cardiovascular: Yes: Regular Rate and Rhythm. No: Gallop, Murmur, Rub Respiratory: Yes: Regular, CTA Bilaterally. No: Rales, Rhonchi, Wheezes Gastrointestinal: Yes: Normal Bowel Sounds, Soft. No: Distention, Tenderness Extremities: Yes: WNL Edema: No Labs: CBC, BMP 01/22/18 06:00 01/22/18 06:00 Discharge Summary Reason For Visit: UTI,BACK PAIN Current Active Problems Afib (Acute) Asthma (Acute) Back pain (Acute) CAD (coronary artery disease) (Acute) CHF (congestive heart failure) (Acute) COPD (chronic obstructive pulmonary disease) (Acute) Fall (Acute) History of breast cancer (Acute) Leukocytosis (Acute) Low back pain (Acute) Osteoarthritis (Acute) Sepsis (Acute) UTI (urinary tract infection) (Acute) Hospital Course: (1) Sepsis Code(s): A41.9 - SEPSIS, UNSPECIFIED ORGANISM (2) UTI (urinary tract infection) Code(s): N39.0 - URINARY TRACT INFECTION, SITE NOT SPECIFIED Qualifiers: Urinary tract infection type: site unspecified Hematuria presence: with hematuria Qualified Code(s): N39.0 - Urinary tract infection, site not specified; R31.9 - Hematuria, unspecified; R31.9 - Hematuria, unspecified (3) Leukocytosis Code(s): D72.829 - ELEVATED WHITE BLOOD CELL COUNT, UNSPECIFIED (4) Fall Code(s): W19.XXXA - UNSPECIFIED FALL, INITIAL ENCOUNTER (5) Low back pain Code(s): M54.5 - LOW BACK PAIN Qualifiers: Chronicity: acute Back pain laterality: bilateral (6) HLD (hyperlipidemia) Code(s): E78.5 - HYPERLIPIDEMIA, UNSPECIFIED (7) HTN (hypertension) Code(s): I10 - ESSENTIAL (PRIMARY) HYPERTENSION Qualifiers: Hypertension type: essential hypertension Qualified Code(s): I10 - Essential (primary) hypertension (8) Hypothyroid Code(s): E03.9 - HYPOTHYROIDISM, UNSPECIFIED (9) Afib Code(s): I48.91 - UNSPECIFIED ATRIAL FIBRILLATION Qualifiers: Atrial fibrillation type: chronic Qualified Code(s): I48.2 - Chronic atrial fibrillation (10) CAD (coronary artery disease) Code(s): I25.10 - ATHSCL HEART DISEASE OF [place] CORONARY ARTERY W/O ANG PCTRS (11) COPD (chronic obstructive pulmonary disease) Code(s): J44.9 - CHRONIC OBSTRUCTIVE PULMONARY DISEASE, UNSPECIFIED (12) Osteoarthritis Code(s): M19.90 - UNSPECIFIED OSTEOARTHRITIS, UNSPECIFIED SITE Qualifiers: Osteoarthritis location: spine Spinal region: cervical (13) History of breast cancer Code(s): Z85.3 - PERSONAL HISTORY OF MALIGNANT NEOPLASM OF BREAST Ms Davies is a pleasant 78 year old female who came in with severe uncontrolled back pain and also UTI with sepsis. She was admitted and started on rocephin for the UTI. That resolved and an MRI of her spine was performed which was concerning for infectious discitis. ID and neurosurgery were consulted and recommended a biopsy which was done, however had received antibiotics so even though was sterile might be a false negative. Neurosurgery recommends a full course of antibiotics which will be finished as an outpatient. She was also seen by pain management and her regimen was adjusted. She is currently stable for discharge to a SNF to finish her antibiotics 37 minutes spent in preparation of this discharge Condition: Stable - Instructions Diet, Activity, Other Instructions: regular diet. up with assistance, further activity per PT at SNF Referrals: Aureliano Henry MD [Primary Care Provider] - Juan Castro MD [Staff Physician] - Edy Ibrahim MD [Staff Physician] - Disposition: [facility] - Home Medications Comprehensive Discharge Medication List: Ambulatory Orders Alendronate Sodium 70 mg PO UTDICT 10/16/11 Ferrous Fumarate [Iron] 325 mg PO DAILY 10/16/11 Levothyroxine [Synthroid -] 50 mcg PO DAILY 10/16/11 Metoprolol "Xl" (Sustain Act) [Toprol Xl] 50 mg PO DAILY 10/16/11 Rosuvastatin [Crestor -] 10 mg PO HS #0 01/06/14 Cyanocobalamin [Vitamin B12 -] 2,500 mcg PO DAILY 06/07/14 Losartan Potassium 50 mg PO DAILY 06/07/14 Pantoprazole Sodium [Protonix] 40 mg PO DAILY 06/07/14 Pramipexole Di-HCl [Mirapex] 0.25 mg PO BID 06/07/14 Oxybutynin Chloride [Ditropan Xl] 10 mg PO DAILY 07/05/16 Albuterol Sulfate [Proventil HFA Inhaler -] 1 - 2 inh PO QID PRN 11/18/17 Apixaban [Eliquis] 5 mg PO BID 11/18/17 Ascorbate Calcium [Vitamin C] 500 mg PO DAILY 11/18/17 Pregabalin [Lyrica] 100 mg PO BID 11/18/17 Solifenacin Succinate [Vesicare -] 10 mg PO DAILY 11/18/17 Albuterol 2.5/Ipratropium 0.5 [Duoneb -] 1 amp NEB RTID #0 amp 11/21/17 Budesonide/Formeterol Fumarate [SYMBICORT 80/4.5mcg -] 2 puff IH BID inhaler Acetaminophen [Tylenol .Regular Strength -] 650 mg PO Q6H PRN tablet 01/23/18 Cefepime [Maxipime 2Gm Ivpb (Pre-Docked)] 2 gm IV BID 35 Days bag 01/23/18 Docusate Sodium [Colace -] 100 mg PO TID capsule 01/23/18 Lactobacillus Acidophilus [Bacid -] 1 tab PO DAILY tab 01/23/18 Lidocaine 5% Patch [Lidoderm -] 1 patch TP DAILY patch 01/23/18 Lidocaine Patch Removal [Lidoderm Patch Removal] 1 each DAILY@2200 each Picc Line Flush [Picc Line Flush -] 8 ml IVPUSH PRN PRN ml 01/23/18 Polyethylene Glycol 3350 [Miralax 119 gm Btl -] 17 gm PO BID bottle 01/23/18 Sennosides [Senna -] 2 tab PO HS tablet 01/23/18 Vancomycin 1 Gram (Pre-Docked) [Vancomycin (Pre-Docked)] 1,000 mg IVPB BID 35 Days bag 01/23/18 oxyCODONE SR [Oxycontin] 20 mg PO BID tab.er.12h MDD 40mg 01/23/18
[2018-01-23] MEDS: VANCOMYCIN 1 GM PREMIX - 1 GM/200 ML BAG IVPB SCH (14:09)
[2018-01-23] MEDS: ROSUVASTATIN CA 10 MG TABLET (FP) PO SCH (22:16)
[2018-01-23] MEDS: SENNOSIDES 8.6MG TABLET (FP) PO SCH (22:17)
[2018-01-23] MEDS: LIDOCAINE PATCH REMOVAL MC SCH (22:18)
[2018-01-24] MEDS: CEFEPIME 2 GM in DEXTROSE 5%-WATER 100 ML IVPB SCH ×3 (01:00→17:36)
[2018-01-24] MEDS: VANCOMYCIN 1 GM PREMIX - 1 GM/200 ML BAG IVPB SCH ×2 (01:49→13:12)
[2018-01-24] MEDS: LEVOTHYROXINE NA 50 MCG TABLET (FP) PO SCH (06:23)
[2018-01-24] MEDS: DOCUSATE SODIUM 100 MG CAPSULE (FP) PO SCH ×3 (06:23→22:01)
[2018-01-24] MEDS: PREGABALIN 50 MG CAPSULE PO SCH ×3 (06:23→22:01)
[2018-01-24] MEDS ORDERED: PT OWN MED DRAWER 7, Y5N ONE ×2 (09:30→21:13)
[2018-01-24] MEDS ORDERED: DEXTROSE 5%-WATER 100 ML IVPB ONE ×2 (09:31→17:33)
[2018-01-24] MEDS ORDERED: CEFEPIME HCL 2 GM VIAL (RESTRICTED TO ID) ONE ×2 (09:31→17:33)
[2018-01-24] MEDS: PANTOPRAZOLE 40 MG TABLET (FP) PO SCH (09:34)
[2018-01-24] MEDS: FERROUS SO4 325 MG TABLET (FP) PO SCH (09:34)
[2018-01-24] MEDS: LOSARTAN POTASSIUM 50 MG TABLET (FP) PO SCH (09:34)
[2018-01-24] MEDS: oxyCODONE HCL 20 MG SUSTAINED ACTING TABLET PO SCH ×2 (09:34→22:02)
[2018-01-24] MEDS: APIXABAN 5 MG TABLET PO SCH ×2 (09:35→22:01)
[2018-01-24] MEDS: LACTOBACILLUS ACIDOPHILUS 1 TABLET PO SCH (09:35)
[2018-01-24] MEDS: ASCORBIC ACID 500 MG TABLET (FP) PO SCH (09:35)
[2018-01-24] MEDS: PRAMIPEXOLE DIHYDROCHLORIDE 0.25 MG TABLET PO SCH ×2 (09:36→22:01)
[2018-01-24] MEDS: POLYETHYLENE GLYCOL 3350 119 GM BTL PO SCH ×2 (09:36→22:02)
[2018-01-24] MEDS: BUDESONIDE/FORMETEROL FUMARATE 80/4.5 mcg INHALER IH SCH ×2 (09:36→22:03)
[2018-01-24] MEDS: CYANOCOBALAMIN 1,000 MCG TABLET (FP) PO SCH (09:37)
[2018-01-24] MEDS: SOLIFENACIN SUCCINATE 5 MG TAB (FP) PO SCH (09:37)
[2018-01-24] MEDS: LIDOCAINE 5% TOPICAL PATCH TP SCH (09:37)
[2018-01-24] MEDS ORDERED: oxyCODONE HCL 5 MG TABLET PO PRN (09:42)
--- NOTE | 2018-01-24 11:01 | PN ---
Progress Note, Physician History of Present Illness: Still with a lot of back pain, but also getting stiffness and pain in feet when she tries to flex and extend them. Bottom of feet are hurting a lot. Notes that even with current pain medication still needs additional pain medication. - Current Medication List Current Medications: Active Medications Acetaminophen (Tylenol -) 650 mg PO Q6H PRN PRN Reason: PAIN LEVEL 1-5 Last Admin: 01/23/18 01:10 Dose: 650 mg Albuterol Sulfate (Ventolin Hfa Inhaler -) 1 puff IH Q6H PRN PRN Reason: ASTHMA Albuterol Sulfate (Ventolin Hfa Inhaler -) 2 puff IH Q6H PRN PRN Reason: ASTHMA Last Admin: 01/14/18 05:41 Dose: 2 puff Apixaban (Eliquis -) 5 mg PO BID [facility] Last Admin: 01/24/18 09:35 Dose: 5 mg Ascorbic Acid (Vitamin C -) 500 mg PO DAILY [facility] Last Admin: 01/24/18 09:35 Dose: 500 mg Budesonide/Formoterol Fumarate (Symbicort 80/4.5mcg -) 2 puff IH BID [facility] Last Admin: 01/24/18 09:36 Dose: 2 puff Cyanocobalamin (Vitamin B12 -) 2,500 mcg PO DAILY [facility] Last Admin: 01/24/18 09:37 Dose: 2,500 mcg Docusate Sodium (Colace -) 100 mg PO TID [facility] Last Admin: 01/24/18 06:23 Dose: 100 mg Ferrous Sulfate (Feosol -) 325 mg PO DAILY [facility] Last Admin: 01/24/18 09:34 Dose: 325 mg IV Flush (Picc Line Flush) 8 ml IVPUSH PRN PRN PRN Reason: Protocol Cefepime HCl 2 gm/ Dextrose 100 mls @ 200 mls/hr IVPB Q8H-IV NICOLE PRN Reason: Protocol Last Admin: 01/24/18 09:37 Dose: 200 mls/hr Vancomycin HCl (Vancomycin 1 Gm Premix -) 1 gm in 200 mls @ 166.667 mls/hr IVPB BID@0100,1300 NICOLE PRN Reason: Protocol Last Admin: 01/24/18 01:49 Dose: 166.667 mls/hr Lactobacillus Acidophilus (Bacid -) 1 tab PO DAILY [facility] Last Admin: 01/24/18 09:35 Dose: 1 tab Levothyroxine Sodium (Synthroid -) 50 mcg PO ACBK [facility] Last Admin: 01/24/18 06:23 Dose: 50 mcg Lidocaine (Lidoderm Patch -) 1 patch TP DAILY [facility] Last Admin: 01/24/18 09:37 Dose: 1 patch Losartan Potassium (Cozaar -) 50 mg PO DAILY [facility] Last Admin: 01/24/18 09:34 Dose: 50 mg Metoprolol Succinate (Toprol Xl -) 50 mg PO DAILY [facility] Last Admin: 01/24/18 09:34 Dose: 50 mg Miscellaneous (Lidoderm Patch Removal) 1 each MC DAILY@2200 [facility] Last Admin: 01/23/18 22:18 Dose: 1 each Oxycodone HCl (Oxycontin -) 20 mg PO BID [facility] Last Admin: 01/24/18 09:34 Dose: 20 mg Oxycodone HCl (Roxicodone -) 5 mg PO Q6H PRN PRN Reason: PAIN LEVEL 6-10 Pantoprazole Sodium (Protonix -) 40 mg PO DAILY [facility] Last Admin: 01/24/18 09:34 Dose: 40 mg Polyethylene Glycol (Miralax (For Daily Use) -) 17 gm PO BID [facility] Last Admin: 01/24/18 09:36 Dose: 17 grams Pramipexole Dihydrochloride (Mirapex -) 0.25 mg PO BID [facility] Last Admin: 01/24/18 09:36 Dose: 0.25 mg Pregabalin (Lyrica -) 100 mg PO TID [facility] Last Admin: 01/24/18 06:23 Dose: 100 mg Rosuvastatin Calcium (Crestor -) 10 mg PO HS [facility] Last Admin: 01/23/18 22:16 Dose: 10 mg Senna (Senna -) 2 tab PO HS [facility] Last Admin: 01/23/18 22:17 Dose: 2 tab Solifenacin (Vesicare -) 10 mg PO DAILY [facility] Last Admin: 01/24/18 09:37 Dose: 10 mg - Objective Vital Signs: Vital Signs Temperature 98.2 F 01/24/18 10:00 Pulse Rate 93 H 01/24/18 10:00 Respiratory Rate 20 01/24/18 10:00 Blood Pressure 116/78 01/24/18 10:00 O2 Sat by Pulse Oximetry (%) 99 01/24/18 09:00 Constitutional: Yes: No Distress, Calm Eyes: Yes: Conjunctiva Clear, EOM Intact, PERRL HENT: Yes: Atraumatic, Normocephalic Neck: Yes: Supple, Trachea Midline Cardiovascular: Yes: Regular Rate and Rhythm, S1, S2. No: Murmur Respiratory: Yes: Regular, CTA Bilaterally. No: Rales, Rhonchi, Wheezes Gastrointestinal: Yes: Normal Bowel Sounds, Soft, Abdomen, Obese. No: Distention, Tenderness Extremities: Yes: Other (bilateral feet contractures, pain to palpation of heels ) Edema: No Neurological: Yes: Alert, Oriented Labs: CBC, BMP 01/22/18 06:00 01/22/18 06:00 Assessment/Plan Current Active Problems Afib (Acute) Asthma (Acute) Back pain (Acute) CAD (coronary artery disease) (Acute) CHF (congestive heart failure) (Acute) COPD (chronic obstructive pulmonary disease) (Acute) Fall (Acute) History of breast cancer (Acute) Leukocytosis (Acute) Low back pain (Acute) Osteoarthritis (Acute) Sepsis (Acute) UTI (urinary tract infection) (Acute) Discitis -cont abx (was not able to get PICC line yet, so awaiting PICC placement for fpc abx for discitis) -PT for foot contractures, will add low dose short-acting oxycodone for breakthrough pain (on long-acting oxycontin bid)
--- NOTE | 2018-01-24 11:51 | PN ---
Progress Note (short form) - Note Progress Note: NEUROSURGERY Less pain today; more comfortable Pain med adjusted yesteday Pt reported Dr Karimi gave injection last August in his office On vanco and cefepime PE: Tmax 98.2, AF, VSS HEENT- NC, AT; Neck- supple; Cor- RR; Lungs- CTA; Abd- obese, benign; Ext- no sign of DVT CN- intact II-XII; Motor- 4+/5 UE; B LE prox 3-4-, distal 4/5; Sensation- decreased L L4-5-S1 to PP/LT Urine Cx- E Coli; Blood Cx- negative Gram stain negative, culture negative x 24 hours L5-S1 spondylolisthesis and stenosis; discitis/osteomyelitis/facet spondylitis [facility] iv abx per ID Increased to Oxycontin 20 mg bid Bowel regimen Encouraged OOB/increased activity/ROM of legs/feet PT/rehab
[2018-01-24] MEDS: ROSUVASTATIN CA 10 MG TABLET (FP) PO SCH (22:00)
[2018-01-24] MEDS: SENNOSIDES 8.6MG TABLET (FP) PO SCH (22:01)
[2018-01-24] MEDS: LIDOCAINE PATCH REMOVAL MC SCH (22:02)
[2018-01-25] MEDS ORDERED: DEXTROSE 5%-WATER 100 ML IVPB ONE ×3 (01:31→17:31)
[2018-01-25] MEDS ORDERED: CEFEPIME HCL 2 GM VIAL (RESTRICTED TO ID) ONE ×3 (01:31→17:31)
[2018-01-25] MEDS: CEFEPIME 2 GM in DEXTROSE 5%-WATER 100 ML IVPB SCH ×3 (01:38→17:50)
[2018-01-25] MEDS: VANCOMYCIN 1 GM PREMIX - 1 GM/200 ML BAG IVPB SCH ×2 (01:54→13:10)
[2018-01-25] MEDS: PREGABALIN 50 MG CAPSULE PO SCH ×3 (06:09→22:12)
[2018-01-25] MEDS: LEVOTHYROXINE NA 50 MCG TABLET (FP) PO SCH (06:09)
[2018-01-25] MEDS: DOCUSATE SODIUM 100 MG CAPSULE (FP) PO SCH ×3 (06:10→22:12)
[2018-01-25 08:07] LABS: BASO % 0.2 % (0-2.0); EOS % 2.3 % (0-4.5); HEMATOCRIT 30.4 % (32.4-45.2); HEMOGLOBIN 10.1 GM/dL (10.7-15.3); LYMPH % 22.9 % (8-40); MCH 28.9 pg (25.7-33.7); MCHC 33.2 g/dl (32.0-36.0); MEAN PLT VOLUME 7.4 fl (7.5-11.1); MONO % 9.9 % (3.8-10.2); NEUT % 64.7 % (42.8-82.8); PLATELET COUNT 385 K/MM3 (134-434); RBC 3.49 M/mm3 (3.60-5.2); RDW 14.1 % (11.6-15.6); WHITE BLOOD COUNT 6.7 K/mm3 (4.0-10.0)
[2018-01-25 08:28] LABS: ALBUMIN 2.3 g/dl (3.4-5.0); ANION GAP 2 (8-16); BLOOD UREA NITROGEN 13 mg/dL (7-18); CALCIUM 8.6 mg/dL (8.5-10.1); CHLORIDE 100 mmol/L (98-107); CO2 33 mmol/L (21-32); GLUCOSE,RANDOM 94 mg/dL (74-106); POTASSIUM 4.1 mmol/L (3.5-5.1); SODIUM 135 mmol/L (136-145)
[2018-01-25 08:33] LABS: ALK PHOS 84 U/L (45-117); BILIRUBIN,TOTAL 0.4 mg/dL (0.2-1.0); CREATININE 0.5 mg/dL (0.55-1.02); SGOT/AST 14 U/L (15-37); SGPT/ALT 35 U/L (12-78); TOT PROT 5.9 g/dl (6.4-8.2)
[2018-01-25] MEDS ORDERED: PT OWN MED DRAWER 7, Y5N ONE (09:04)
--- NOTE | 2018-01-25 09:18 | PN ---
Progress Note (short form) - Note Progress Note: NEUROSURGERY L hip/thigh/buttock pain e Pt reports Dr Karimi gave injection last August in his office (she did not recall clearly previously on timing) No BM since On vanco and cefepime PE: Tmax 98.4, VSS HEENT- NC, AT; Neck- supple; Cor- RR; Lungs- CTA; Abd- obese, benign; Ext- no sign of DVT CN- intact II-XII; Motor- 4+/5 UE; B LE prox 3-4-, distal 4/5; Sensation- decreased L L4-5-S1 to PP/LT Urine Cx- E Coli; Blood Cx- negative Gram stain negative, culture negative x 24 hours L5-S1 spondylolisthesis and stenosis; discitis/osteomyelitis/facet spondylitis ( aseptic spondylitis is possible but given increasing pain and prior fever 10 days earlier suggests infectious process) Though facet tissue bx negative for bacterial growth pt had previously received ceftriaxone; the potential benefits of iv abx tx outweighs the potential risks of iv abx tx D/w Dr Castro Friday [facility] iv abx per ID Increased to Oxycontin 20 mg bid 2 days ago Bowel regimen; add MOM Encouraged OOB/increased activity/ROM of legs/feet PT/rehab
[2018-01-25] MEDS: LIDOCAINE 5% TOPICAL PATCH TP SCH (09:22)
[2018-01-25] MEDS: LACTOBACILLUS ACIDOPHILUS 1 TABLET PO SCH (09:22)
[2018-01-25] MEDS: LOSARTAN POTASSIUM 50 MG TABLET (FP) PO SCH (09:22)
[2018-01-25] MEDS: ASCORBIC ACID 500 MG TABLET (FP) PO SCH (09:23)
[2018-01-25] MEDS: PANTOPRAZOLE 40 MG TABLET (FP) PO SCH (09:23)
[2018-01-25] MEDS: CYANOCOBALAMIN 1,000 MCG TABLET (FP) PO SCH (09:23)
[2018-01-25] MEDS: FERROUS SO4 325 MG TABLET (FP) PO SCH (09:23)
[2018-01-25] MEDS: oxyCODONE HCL 20 MG SUSTAINED ACTING TABLET PO SCH ×2 (09:23→22:13)
[2018-01-25] MEDS: APIXABAN 5 MG TABLET PO SCH ×2 (09:24→22:13)
[2018-01-25] MEDS: PRAMIPEXOLE DIHYDROCHLORIDE 0.25 MG TABLET PO SCH ×2 (09:24→22:12)
[2018-01-25] MEDS: SOLIFENACIN SUCCINATE 5 MG TAB (FP) PO SCH (09:24)
[2018-01-25] MEDS ORDERED: MAGNESIUM HYDROX 2400MG/30ML ORAL SUSPENSION 30 ML CUP PO ONE (09:59)
--- NOTE | 2018-01-25 10:42 | PN ---
Progress Note, Physician History of Present Illness: Still with a lot of back pain. Notes also not having bowel movement for 5 days now. - Current Medication List Current Medications: Active Medications Acetaminophen (Tylenol -) 650 mg PO Q6H PRN PRN Reason: PAIN LEVEL 1-5 Last Admin: 01/23/18 01:10 Dose: 650 mg Albuterol Sulfate (Ventolin Hfa Inhaler -) 1 puff IH Q6H PRN PRN Reason: ASTHMA Albuterol Sulfate (Ventolin Hfa Inhaler -) 2 puff IH Q6H PRN PRN Reason: ASTHMA Last Admin: 01/14/18 05:41 Dose: 2 puff Apixaban (Eliquis -) 5 mg PO BID [facility] Last Admin: 01/25/18 09:24 Dose: 5 mg Ascorbic Acid (Vitamin C -) 500 mg PO DAILY [facility] Last Admin: 01/25/18 09:23 Dose: 500 mg Budesonide/Formoterol Fumarate (Symbicort 80/4.5mcg -) 2 puff IH BID [facility] Last Admin: 01/24/18 22:03 Dose: 2 puff Cyanocobalamin (Vitamin B12 -) 2,500 mcg PO DAILY [facility] Last Admin: 01/25/18 09:23 Dose: 2,500 mcg Docusate Sodium (Colace -) 100 mg PO TID [facility] Last Admin: 01/25/18 06:10 Dose: 100 mg Ferrous Sulfate (Feosol -) 325 mg PO DAILY [facility] Last Admin: 01/25/18 09:23 Dose: 325 mg IV Flush (Picc Line Flush) 8 ml IVPUSH PRN PRN PRN Reason: Protocol Cefepime HCl 2 gm/ Dextrose 100 mls @ 200 mls/hr IVPB Q8H-IV NICOLE PRN Reason: Protocol Last Admin: 01/25/18 01:38 Dose: 200 mls/hr Vancomycin HCl (Vancomycin 1 Gm Premix -) 1 gm in 200 mls @ 166.667 mls/hr IVPB BID@0100,1300 NICOLE PRN Reason: Protocol Last Admin: 01/25/18 01:54 Dose: 166.667 mls/hr Lactobacillus Acidophilus (Bacid -) 1 tab PO DAILY [facility] Last Admin: 01/25/18 09:22 Dose: 1 tab Levothyroxine Sodium (Synthroid -) 50 mcg PO ACBK [facility] Last Admin: 01/25/18 06:09 Dose: 50 mcg Lidocaine (Lidoderm Patch -) 1 patch TP DAILY [facility] Last Admin: 01/25/18 09:22 Dose: 1 patch Losartan Potassium (Cozaar -) 50 mg PO DAILY [facility] Last Admin: 01/25/18 09:22 Dose: 50 mg Metoprolol Succinate (Toprol Xl -) 50 mg PO DAILY [facility] Last Admin: 01/25/18 09:23 Dose: 50 mg Miscellaneous (Lidoderm Patch Removal) 1 each MC DAILY@2200 [facility] Last Admin: 01/24/18 22:02 Dose: 1 each Oxycodone HCl (Oxycontin -) 20 mg PO BID [facility] Last Admin: 01/25/18 09:23 Dose: 20 mg Oxycodone HCl (Roxicodone -) 5 mg PO Q6H PRN PRN Reason: PAIN LEVEL 6-10 Last Admin: 01/25/18 06:09 Dose: 5 mg Pantoprazole Sodium (Protonix -) 40 mg PO DAILY [facility] Last Admin: 01/25/18 09:23 Dose: 40 mg Polyethylene Glycol (Miralax (For Daily Use) -) 17 gm PO BID [facility] Last Admin: 01/24/18 22:02 Dose: 17 grams Pramipexole Dihydrochloride (Mirapex -) 0.25 mg PO BID [facility] Last Admin: 01/25/18 09:24 Dose: 0.25 mg Pregabalin (Lyrica -) 100 mg PO TID [facility] Last Admin: 01/25/18 06:09 Dose: 100 mg Rosuvastatin Calcium (Crestor -) 10 mg PO HS [facility] Last Admin: 01/24/18 22:00 Dose: 10 mg Senna (Senna -) 2 tab PO HS [facility] Last Admin: 01/24/18 22:01 Dose: 2 tab Solifenacin (Vesicare -) 10 mg PO DAILY [facility] Last Admin: 01/25/18 09:24 Dose: 10 mg - Objective Vital Signs: Vital Signs Temperature 98 F 01/25/18 05:52 Pulse Rate 68 01/25/18 05:52 Respiratory Rate 20 01/25/18 05:52 Blood Pressure 108/68 01/25/18 05:52 O2 Sat by Pulse Oximetry (%) 99 01/24/18 21:00 Cardiovascular: Yes: Regular Rate and Rhythm, S1, S2. No: Murmur Respiratory: Yes: Regular, CTA Bilaterally. No: Rales, Rhonchi, Wheezes Gastrointestinal: Yes: Normal Bowel Sounds, Soft, Distention (softly). No: Tenderness, Vomiting Extremities: Yes: Other (contractures of feet) Edema: No Neurological: Yes: Alert, Oriented Labs: CBC, BMP 01/25/18 06:00 01/25/18 06:00 Assessment/Plan Current Active Problems Afib (Acute) Asthma (Acute) Back pain (Acute) CAD (coronary artery disease) (Acute) CHF (congestive heart failure) (Acute) COPD (chronic obstructive pulmonary disease) (Acute) Fall (Acute) History of breast cancer (Acute) Leukocytosis (Acute) Low back pain (Acute) Osteoarthritis (Acute) Sepsis (Acute) UTI (urinary tract infection) (Acute) Discitis -cont abx, to get PICC line placement -start miralax, stool softeners
[2018-01-25] MEDS: BUDESONIDE/FORMETEROL FUMARATE 80/4.5 mcg INHALER IH SCH ×2 (11:06→22:14)
[2018-01-25] MEDS: POLYETHYLENE GLYCOL 3350 119 GM BTL PO SCH ×2 (11:33→22:14)
[2018-01-25] MEDS ORDERED: LACTULOSE 20 GM/30 ML UDC (FOR ORAL USE ONLY) PO ONE (12:15)
[2018-01-25] MEDS: ACETAMINOPHEN 325 MG TABLET (FP) PO PRN (13:21)
[2018-01-25] MEDS: SENNOSIDES 8.6MG TABLET (FP) PO SCH (22:12)
[2018-01-25] MEDS: ROSUVASTATIN CA 10 MG TABLET (FP) PO SCH (22:13)
[2018-01-25] MEDS: LIDOCAINE PATCH REMOVAL MC SCH (22:14)
[2018-01-26] MEDS ORDERED: CEFEPIME HCL 2 GM VIAL (RESTRICTED TO ID) ONE ×2 (01:01→09:48)
[2018-01-26] MEDS ORDERED: DEXTROSE 5%-WATER 100 ML IVPB ONE ×2 (01:01→09:48)
[2018-01-26] MEDS: CEFEPIME 2 GM in DEXTROSE 5%-WATER 100 ML IVPB SCH ×2 (01:03→10:30)
[2018-01-26] MEDS: VANCOMYCIN 1 GM PREMIX - 1 GM/200 ML BAG IVPB SCH ×2 (01:37→13:42)
[2018-01-26] MEDS: DOCUSATE SODIUM 100 MG CAPSULE (FP) PO SCH ×2 (06:33→15:56)
[2018-01-26] MEDS: LEVOTHYROXINE NA 50 MCG TABLET (FP) PO SCH (06:33)
[2018-01-26] MEDS: PREGABALIN 50 MG CAPSULE PO SCH ×2 (06:33→15:55)
--- NOTE | 2018-01-26 08:39 | PN ---
Progress Note (short form) - Note Progress Note: NEUROSURGERY Less pain On vanco and cefepime PE: Tmax 100.2, now 98.1, VSS HEENT- NC, AT; Neck- supple; Cor- RR; Lungs- CTA; Abd- obese, benign; Ext- no sign of DVT CN- intact II-XII; Motor- 4+/5 UE; B LE prox 4-, distal 4+/5; Sensation- decreased L L4-5-S1 to PP/LT Urine Cx- E Coli; Blood Cx- negative; repeat 01-25 pending Bx gram stain negative, culture negative L5-S1 spondylolisthesis and stenosis; discitis/osteomyelitis/facet spondylitis ( aseptic spondylitis is possible but given increasing pain and prior fever 10 days earlier suggestive of infectious process) Though facet tissue bx negative for bacterial growth pt had previously received ceftriaxone; the potential benefits of iv abx tx outweighs the potential risks of iv abx tx 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
--- NOTE | 2018-01-26 09:40 | PN ---
Progress Note (short form) - Note Progress Note: Neurology History of Present Illness: 77 year old female here for worsening low back pain radiating to lower extremities and inability to ambulate at home. She reported b/l lower extremity pain for past several days but for last 3-4 weeks has discomfort in her feet radiating up to her back. She also states she has ongoing low back pain and is uncomfortable appearing in bed, holding on rails on sides. She states she is not able to ambulate. She has been on Lyrica and ordered for 100mg twice daily. CT L spine completed with chronic arthritic changes noted as well as antherolisthesis. She described the pain as sharp, pins and needles. Reportedly with recent fall at halfway. Is getting pain medication here and Dr. Castellanos consulted for futher pain mgmt, no follow up note. MRI L spine completed and showed L5 severe thecal sac compression. Discitis also noted, but no osteo evident. NSGY consulted. Lyrica increased to 100mg TID. Is now on Oxycontin 20mg as well. Compelted biopsy to evaluate underlying discitis. Is on Cefepime and Vanco. NSGY note reviewed, recommended pain mgmt follow up. States she is in pain and can't move legs though is raising RLE. Encouraged patient for increased activity and effort as possible. Participate in physical therapy if able. Active Medications Acetaminophen (Tylenol -) 650 mg PO Q6H PRN PRN Reason: PAIN LEVEL 1-5 Last Admin: 01/25/18 13:21 Dose: 650 mg Albuterol Sulfate (Ventolin Hfa Inhaler -) 1 puff IH Q6H PRN PRN Reason: ASTHMA Albuterol Sulfate (Ventolin Hfa Inhaler -) 2 puff IH Q6H PRN PRN Reason: ASTHMA Last Admin: 01/14/18 05:41 Dose: 2 puff Apixaban (Eliquis -) 5 mg PO BID [facility] Last Admin: 01/25/18 22:13 Dose: 5 mg Ascorbic Acid (Vitamin C -) 500 mg PO DAILY [facility] Last Admin: 01/25/18 09:23 Dose: 500 mg Budesonide/Formoterol Fumarate (Symbicort 80/4.5mcg -) 2 puff IH BID [facility] Last Admin: 01/25/18 22:14 Dose: 2 puff Cyanocobalamin (Vitamin B12 -) 2,500 mcg PO DAILY [facility] Last Admin: 01/25/18 09:23 Dose: 2,500 mcg Docusate Sodium (Colace -) 100 mg PO TID [facility] Last Admin: 01/26/18 06:33 Dose: 100 mg Ferrous Sulfate (Feosol -) 325 mg PO DAILY [facility] Last Admin: 01/25/18 09:23 Dose: 325 mg IV Flush (Picc Line Flush) 8 ml IVPUSH PRN PRN PRN Reason: Protocol Cefepime HCl 2 gm/ Dextrose 100 mls @ 200 mls/hr IVPB Q8H-IV NICOLE PRN Reason: Protocol Last Admin: 01/26/18 01:03 Dose: 200 mls/hr Vancomycin HCl (Vancomycin 1 Gm Premix -) 1 gm in 200 mls @ 166.667 mls/hr IVPB BID@0100,1300 NICOLE PRN Reason: Protocol Last Admin: 01/26/18 01:37 Dose: 166.667 mls/hr Lactobacillus Acidophilus (Bacid -) 1 tab PO DAILY [facility] Last Admin: 01/25/18 09:22 Dose: 1 tab Levothyroxine Sodium (Synthroid -) 50 mcg PO ACBK [facility] Last Admin: 01/26/18 06:33 Dose: 50 mcg Lidocaine (Lidoderm Patch -) 1 patch TP DAILY [facility] Last Admin: 01/25/18 09:22 Dose: 1 patch Losartan Potassium (Cozaar -) 50 mg PO DAILY [facility] Last Admin: 01/25/18 09:22 Dose: 50 mg Metoprolol Succinate (Toprol Xl -) 50 mg PO DAILY [facility] Last Admin: 01/25/18 09:23 Dose: 50 mg Miscellaneous (Lidoderm Patch Removal) 1 each MC DAILY@2200 [facility] Last Admin: 01/25/18 22:14 Dose: 1 each Oxycodone HCl (Oxycontin -) 20 mg PO BID [facility] Last Admin: 01/25/18 22:13 Dose: 20 mg Oxycodone HCl (Roxicodone -) 5 mg PO Q6H PRN PRN Reason: PAIN LEVEL 6-10 Last Admin: 01/25/18 06:09 Dose: 5 mg Pantoprazole Sodium (Protonix -) 40 mg PO DAILY [facility] Last Admin: 01/25/18 09:23 Dose: 40 mg Polyethylene Glycol (Miralax (For Daily Use) -) 17 gm PO BID [facility] Last Admin: 01/25/18 22:14 Dose: 17 grams Pramipexole Dihydrochloride (Mirapex -) 0.25 mg PO BID [facility] Last Admin: 01/25/18 22:12 Dose: 0.25 mg Pregabalin (Lyrica -) 100 mg PO TID [facility] Last Admin: 01/26/18 06:33 Dose: 100 mg Rosuvastatin Calcium (Crestor -) 10 mg PO HS [facility] Last Admin: 01/25/18 22:13 Dose: 10 mg Senna (Senna -) 2 tab PO HS [facility] Last Admin: 01/25/18 22:12 Dose: 2 tab Solifenacin (Vesicare -) 10 mg PO DAILY [facility] Last Admin: 01/25/18 09:24 Dose: 10 mg *Physical Exam Vital Signs Temperature 98.1 F 01/26/18 05:35 Pulse Rate 71 01/26/18 05:35 Respiratory Rate 20 01/26/18 05:35 Blood Pressure 105/53 01/26/18 05:35 O2 Sat by Pulse Oximetry (%) 96 01/25/18 21:00 GENERAL: +Patient acutely in pain. Awake, alert, and fully oriented HEAD: No signs of trauma, normocephalic, atraumatic EYES: PERRLA, EOMI, sclera anicteric, conjunctiva clear ENT: Auricles normal inspection, hearing grossly normal, nares patent, oropharynx clear without exudates. Moist mucosa NECK: Normal ROM, supple, no lymphadenopathy, JVD, or masses LUNGS: No distress, speaks full sentences, clear to auscultation bilaterally HEART: Regular rate and rhythm, normal S1 and S2, no murmurs, rubs or gallops, peripheral pulses normal and equal bilaterally. ABDOMEN: Soft, nontender, normoactive bowel sounds. No guarding, no rebound. No masses NEUROLOGICAL: Cranial nerves II through XII grossly intact. Limited leg raise, but LLE bent and in place in bed SKIN: Warm, Dry, normal turgor, no rashes or lesions noted. CBCD WBC 6.7 K/mm3 (4.0-10.0) 01/25/18 06:00 RBC 3.49 M/mm3 (3.60-5.2) L 01/25/18 06:00 Hgb 10.1 GM/dL (10.7-15.3) L 01/25/18 06:00 Hct 30.4 % (32.4-45.2) L 01/25/18 06:00 MCV 87.0 fl (80-96) 01/25/18 06:00 MCHC 33.2 g/dl (32.0-36.0) 01/25/18 06:00 RDW 14.1 % (11.6-15.6) 01/25/18 06:00 Plt Count 385 K/MM3 (134-434) 01/25/18 06:00 MPV 7.4 fl (7.5-11.1) L 01/25/18 06:00 CMP Sodium 135 mmol/L (136-145) L 01/25/18 06:00 Potassium 4.1 mmol/L (3.5-5.1) 01/25/18 06:00 Chloride 100 mmol/L (98-107) 01/25/18 06:00 Carbon Dioxide 33 mmol/L (21-32) H 01/25/18 06:00 Anion Gap 2 (8-16) L 01/25/18 06:00 BUN 13 mg/dL (7-18) 01/25/18 06:00 Creatinine 0.5 mg/dL (0.55-1.02) L 01/25/18 06:00 Creat Clearance w eGFR > 60 (>60) 01/25/18 06:00 Calcium 8.6 mg/dL (8.5-10.1) 01/25/18 06:00 Total Bilirubin 0.4 mg/dL (0.2-1.0) D 01/25/18 06:00 AST 14 U/L (15-37) L 01/25/18 06:00 ALT 35 U/L (12-78) 01/25/18 06:00 Alkaline Phosphatase 84 U/L (45-117) 01/25/18 06:00 Total Protein 5.9 g/dl (6.4-8.2) L 01/25/18 06:00 Albumin 2.3 g/dl (3.4-5.0) L 01/25/18 06:00 Imaging Cat Scan: Report Reviewed MRI L spine reviewed Plan 77 year old female here for worsening low back pain radiating to lower extremities and inability to ambulate at home. She reported b/l lower extremity pain for past several days but for last 3-4 weeks has discomfort in her feet radiating up to her back. She also states she has ongoing low back pain and is uncomfortable appearing in bed, holding on rails on sides. She states she is not able to ambulate. She has been on Lyrica and ordered for 100mg twice daily. CT L spine completed with chronic arthritic changes noted as well as antherolisthesis. Reportedly with recent fall at halfway. MRI L spine reviewed, severe L5 thecal sac compression, NSGY following, note reviewed Increased Lyrica to 100mg three times daily Also on Oxycontin 20mg Defer to pain mgmt regarding further pain medication adjustments Encouraged increased activity Physical therapy as tolerated Biopsy completed, follow up results Hydration recommended Fall precautions PT/OT as tolerated Likely to require rehab
[2018-01-26] MEDS ORDERED: PT OWN MED DRAWER 7, Y5N ONE (09:48)
[2018-01-26] MEDS: oxyCODONE HCL 20 MG SUSTAINED ACTING TABLET PO SCH (10:29)
[2018-01-26] MEDS: LIDOCAINE 5% TOPICAL PATCH TP SCH (10:29)
[2018-01-26] MEDS: FERROUS SO4 325 MG TABLET (FP) PO SCH (10:30)
[2018-01-26] MEDS: ASCORBIC ACID 500 MG TABLET (FP) PO SCH (10:30)
[2018-01-26] MEDS: PANTOPRAZOLE 40 MG TABLET (FP) PO SCH (10:30)
[2018-01-26] MEDS: LACTOBACILLUS ACIDOPHILUS 1 TABLET PO SCH (10:30)
[2018-01-26] MEDS: PRAMIPEXOLE DIHYDROCHLORIDE 0.25 MG TABLET PO SCH (10:32)
[2018-01-26] MEDS: APIXABAN 5 MG TABLET PO SCH (10:32)
[2018-01-26] MEDS: SOLIFENACIN SUCCINATE 5 MG TAB (FP) PO SCH (10:33)
[2018-01-26] MEDS: CYANOCOBALAMIN 1,000 MCG TABLET (FP) PO SCH (10:34)
[2018-01-26] MEDS: LOSARTAN POTASSIUM 50 MG TABLET (FP) PO SCH (11:22)
[2018-01-26] MEDS: BUDESONIDE/FORMETEROL FUMARATE 80/4.5 mcg INHALER IH SCH (11:22)
[2018-01-26 14:32] VITALS: BP 120/78; PULSE 112; TEMP 98.6
[2018-01-26] MEDS: POLYETHYLENE GLYCOL 3350 119 GM BTL PO SCH (16:19)
[2018-01-26] MEDS: ACETAMINOPHEN 325 MG TABLET (FP) PO PRN (16:32)
--- NOTE | 2018-01-26 17:17 | DS ---
Physical Examination Vital Signs: Vital Signs Temperature 37.0 C 01/26/18 14:31 Pulse Rate 112 H 01/26/18 14:31 Respiratory Rate 18 01/26/18 14:31 Blood Pressure 120/78 01/26/18 14:31 O2 Sat by Pulse Oximetry (%) 96 01/26/18 09:00 Constitutional: Yes: Well Nourished, No Distress, Calm Cardiovascular: Yes: Regular Rate and Rhythm. No: Gallop, Murmur, Rub Respiratory: Yes: Regular, CTA Bilaterally. No: Rales, Rhonchi, Wheezes Gastrointestinal: Yes: Normal Bowel Sounds, Soft. No: Distention, Tenderness Extremities: Yes: WNL Edema: No Labs: CBC, BMP 01/25/18 06:00 01/25/18 06:00 Discharge Summary Reason For Visit: UTI,BACK PAIN Current Active Problems Afib (Acute) Asthma (Acute) Back pain (Acute) CAD (coronary artery disease) (Acute) CHF (congestive heart failure) (Acute) COPD (chronic obstructive pulmonary disease) (Acute) Fall (Acute) History of breast cancer (Acute) Leukocytosis (Acute) Low back pain (Acute) Osteoarthritis (Acute) Sepsis (Acute) UTI (urinary tract infection) (Acute) Hospital Course: Please refer to discharge summary previously written on Friday, 01/23. She was planned for discharge but unable to get PICC line. Maintained here over the weekend without change in treatment. Today discussed case with son and all questions answered. Patient planned for PICC line and then transfer to SNF. No change in medications, patient to continue antibiotics for 5 weeks. Condition: Stable - Instructions Diet, Activity, Other Instructions: regular diet. up with assistance, further activity per PT at SNF Referrals: Juan Castro MD [Staff Physician] - Edy Ibrahim MD [Staff Physician] - Aureliano Henry MD [Primary Care Provider] - Disposition: [facility] - Home Medications Comprehensive Discharge Medication List: Ambulatory Orders Alendronate Sodium 70 mg PO UTDICT 10/16/11 Ferrous Fumarate [Iron] 325 mg PO DAILY 10/16/11 Levothyroxine [Synthroid -] 50 mcg PO DAILY 10/16/11 Metoprolol "Xl" (Sustain Act) [Toprol Xl] 50 mg PO DAILY 10/16/11 Rosuvastatin [Crestor -] 10 mg PO HS #0 05/01/14 Cyanocobalamin [Vitamin B12 -] 2,500 mcg PO DAILY 06/07/14 Losartan Potassium 50 mg PO DAILY 06/07/14 Pantoprazole Sodium [Protonix] 40 mg PO DAILY 06/07/14 Pramipexole Di-HCl [Mirapex] 0.25 mg PO BID 06/07/14 Oxybutynin Chloride [Ditropan Xl] 10 mg PO DAILY 07/05/16 Albuterol Sulfate [Proventil HFA Inhaler -] 1 - 2 inh PO QID PRN 11/18/17 Apixaban [Eliquis] 5 mg PO BID 11/18/17 Ascorbate Calcium [Vitamin C] 500 mg PO DAILY 11/18/17 Pregabalin [Lyrica] 100 mg PO BID 11/18/17 Solifenacin Succinate [Vesicare -] 10 mg PO DAILY 11/18/17 Albuterol 2.5/Ipratropium 0.5 [Duoneb -] 1 amp NEB RTID #0 amp 11/21/17 Budesonide/Formeterol Fumarate [SYMBICORT 80/4.5mcg -] 2 puff IH BID inhaler Acetaminophen [Tylenol .Regular Strength -] 650 mg PO Q6H PRN tablet 01/23/18 Cefepime [Maxipime 2Gm Ivpb (Pre-Docked)] 2 gm IV BID 35 Days bag 01/23/18 Docusate Sodium [Colace -] 100 mg PO TID capsule 01/23/18 Lactobacillus Acidophilus [Bacid -] 1 tab PO DAILY tab 01/23/18 Lidocaine 5% Patch [Lidoderm -] 1 patch TP DAILY patch 01/23/18 Lidocaine Patch Removal [Lidoderm Patch Removal] 1 each DAILY@2200 each Picc Line Flush [Picc Line Flush -] 8 ml IVPUSH PRN PRN ml 01/23/18 Polyethylene Glycol 3350 [Miralax 119 gm Btl -] 17 gm PO BID bottle 01/23/18 Sennosides [Senna -] 2 tab PO HS tablet 01/23/18 Vancomycin 1 Gram (Pre-Docked) [Vancomycin (Pre-Docked)] 1,000 mg IVPB BID 35 Days bag 01/23/18 oxyCODONE SR [Oxycontin] 20 mg PO BID tab.er.12h MDD 40mg 01/23/18
== END 2018-01-26 17:47 | DRG 872 ==
LOC: JER 10:50 → JERBED 16:23 → J7W 17:55 → OBSVTOIN 01-13 12:23
PROVIDERS: ADMIT Internal Medicine; ATTEND Internal Medicine
PROC: 02HV33Z Insertion of Infusion Device into Superior Vena Cava, Percutaneous Approach (ICD-10-PCS; principal; 2018-01-26)
DX: A41.9 Sepsis, unspecified organism (principal); N39.0 Urinary tract infection, site not specified; E87.1 Hypo-osmolality and hyponatremia; D72.829 Elevated white blood cell count, unspecified; M54.5 Low back pain; E78.5 Hyperlipidemia, unspecified; I10 Essential (primary) hypertension; E03.9 Hypothyroidism, unspecified; I48.2 Chronic atrial fibrillation; I25.10 Atherosclerotic heart disease of native coronary artery without angina pectoris; J44.9 Chronic obstructive pulmonary disease, unspecified; M19.90 Unspecified osteoarthritis, unspecified site; Z85.3 Personal history of malignant neoplasm of breast; B96.89 Other specified bacterial agents as the cause of diseases classified elsewhere; B96.20 Unspecified Escherichia coli [E. coli] as the cause of diseases classified elsewhere; E66.9 Obesity, unspecified; Z68.34 Body mass index [BMI] 34.0-34.9, adult; M46.46 Discitis, unspecified, lumbar region
CPT/HCPCS: 36415; 36569; 49180; 71045-TC-FY; 72131-TC; 72148-TC; 72149-TC; 72220-TC-FY; 74176; 76098-TC-FY; 76380-TC; 77001-TC-FY; 80048; 80053; 81003; 81015; 82272; 83605; 83735; 84100; 85025; 85651; 86140; 87040; 87070; 87075; 87086; 87102; 87116; 87186; 87205; 87206; 87210; 87899; 93005; 93010; 94010; 94640; 97116-GP; 97162-GP; 99285-25; C1751; G0378; G0480; J0131; J7030; J7620

== ENCOUNTER 2018-01-29 15:02 | Emergency (ER) | payer OTHER, MEDICARE ==
[2018-01-29 15:34] VITALS: BP 143/70; PULSE 73; TEMP 98.3; BMI 34.2
[2018-01-29] MEDS ORDERED: ALTEPLASE 2 MG VIAL IVPUSH ONE (15:43)
--- NOTE | 2018-01-29 15:43 | PDOC ---
History of Present Illness - General Chief Complaint: PICC Line Insertion Stated Complaint: PICC LINE CLOGGED Time Seen by Provider: 01/29/18 15:33 History Source: Patient Exam Limitations: No Limitations - History of Present Illness Initial Comments: 01/29/18 16:02 78y F hx of hl, htn, cad, copd, hypthodoism sent from [facility] on [place] for clotted picc line. Pt was recently admitted and d/c with picc line for abx for treatment of discitis. pt notes yesterday they started having problems, but was able to give her abx, but today it wouldnt flush. pt notes mild discomfort to kenisha area of the line, but is unchanged since it was placed. pt denies any fever/chills, abd pain, nv, cp. pt endorses mild back pain which is chronic for her and improved with a pain patch. Past History - Past Medical History Allergies/Adverse Reactions: Allergies Allergy/AdvReac Type Severity Reaction Status Date / Time No Known Drug Allergies Allergy Verified 01/12/18 11:07 Home Medications: Ambulatory Orders Alendronate Sodium 70 mg PO UTDICT 10/16/11 Ferrous Fumarate [Iron] 325 mg PO DAILY 10/16/11 Levothyroxine [Synthroid -] 50 mcg PO DAILY 10/16/11 Metoprolol "Xl" (Sustain Act) [Toprol Xl] 50 mg PO DAILY 10/16/11 Rosuvastatin [Crestor -] 10 mg PO HS #0 01/06/14 Cyanocobalamin [Vitamin B12 -] 2,500 mcg PO DAILY 06/07/14 Losartan Potassium 50 mg PO DAILY 06/07/14 Pantoprazole Sodium [Protonix] 40 mg PO DAILY 06/07/14 Pramipexole Di-HCl [Mirapex] 0.25 mg PO BID 06/07/14 Oxybutynin Chloride [Ditropan Xl] 10 mg PO DAILY 07/05/16 Albuterol Sulfate [Proventil HFA Inhaler -] 1 - 2 inh PO QID PRN 11/18/17 Apixaban [Eliquis] 5 mg PO BID 11/18/17 Ascorbate Calcium [Vitamin C] 500 mg PO DAILY 11/18/17 Pregabalin [Lyrica] 100 mg PO BID 11/18/17 Solifenacin Succinate [Vesicare -] 10 mg PO DAILY 11/18/17 Albuterol 2.5/Ipratropium 0.5 [Duoneb -] 1 amp NEB RTID #0 amp 11/21/17 Budesonide/Formeterol Fumarate [SYMBICORT 80/4.5mcg -] 2 puff IH BID inhaler Acetaminophen [Tylenol .Regular Strength -] 650 mg PO Q6H PRN tablet 01/23/18 Cefepime [Maxipime 2Gm Ivpb (Pre-Docked)] 2 gm IV BID 35 Days bag 01/23/18 Docusate Sodium [Colace -] 100 mg PO TID capsule 01/23/18 Lactobacillus Acidophilus [Bacid -] 1 tab PO DAILY tab 01/23/18 Lidocaine 5% Patch [Lidoderm -] 1 patch TP DAILY patch 01/23/18 Lidocaine Patch Removal [Lidoderm Patch Removal] 1 each MC DAILY@2200 each Picc Line Flush [Picc Line Flush -] 8 ml IVPUSH PRN PRN ml 01/23/18 Polyethylene Glycol 3350 [Miralax 119 gm Btl -] 17 gm PO BID bottle 01/23/18 Sennosides [Senna -] 2 tab PO HS tablet 01/23/18 Vancomycin 1 Gram (Pre-Docked) [Vancomycin (Pre-Docked)] 1,000 mg IVPB BID 35 Days bag 01/23/18 oxyCODONE SR [Oxycontin] 20 mg PO BID tab.er.12h MDD 40mg 01/23/18 Anemia: Yes Asthma: No Cancer: Yes (LEFT mastectomy) Cardiac Disorders: Yes (mvp) CVA: No COPD: No CHF: No Dementia: No Diabetes: No GI Disorders: No (acid reflux) Disorders: Yes HTN: Yes Hypercholesterolemia: Yes Liver Disease: No Seizures: No Thyroid Disease: Yes - Surgical History Abdominal Surgery: No Appendectomy: No Cardiac Surgery: No Cholecystectomy: No Lung Surgery: No Neurologic Surgery: No Orthopedic Surgery: Yes (r fx patella surg times 6, r knee replacement) - Family Disease History Family Disease History: Diabetes: Father, Heart Disease: Mother - Suicide/Smoking/Psychosocial Hx Smoking Status: No Smoking History: Never smoked Have you smoked in the past 12 months: No Number of Cigarettes Smoked Daily: 0 Information on smoking cessation initiated: No Hx Alcohol Use: No Drug/Substance Use Hx: No Substance Use Type: None Hx Substance Use Treatment: No Review of Systems - Review of Systems Able to Perform ROS?: Yes Comments:: 01/29/18 16:13 Constitutional - no reported Fever, Chills, HEENT: no reported vision changes, sore throat Respiratory: no reported cough, sob, hemoptysis Cardiac: no reported chest pain, Abd/GI: no reported abd pain, nausea, vomiting, : no reported dysuria, frequency, discharge Musculskelatal - +mild back pain no reported , joint swelling skin - +cathter, mild pain at catheter site no reported bruising, erythema, rash neurological: no reported headache, numbness, focal weakness, tingling, ataxia, hematologic: no reported easy bruising, easy bleeding *Physical Exam - Vital Signs Last Vital Signs Temp Pulse Resp BP Pulse Ox 98.3 F 73 20 143/70 97 01/29/18 15:25 01/29/18 15:25 01/29/18 15:25 01/29/18 15:25 01/29/18 15:25 - Physical Exam Comments: GENERAL: The patient is awake, alert Nontoxic - in no acute distress. EXTREMITIES: PICC line in place in RUE, no erythema/induration at site. Medical Decision Making - Medical Decision Making 01/29/18 16:53 clotted Picc line attempted flushing with saline without improvement placed cathflow with resolution of clot, currently flowing well wll dc back to [place] for further management of her discitis I discussed the physical exam findings, ancillary test results and final diagnoses with the patient. I answered all of the patient's questions. The patient was satisfied with the care received and felt comfortable with the discharge plan and treatment plan. The patient will call their primary care physician within 24 hours to arrange follow-up and will return to the Emergency Department with any new, persistent or worsening symptoms. *DC/Admit/Observation/Transfer Diagnosis at time of Disposition: Occluded PICC line Qualifiers: Encounter type: initial encounter Qualified Code(s): T82.898A - Other specified complication of vascular prosthetic devices, implants and grafts, initial encounter - Discharge Dispostion Disposition: [facility] Condition at time of disposition: Improved Decision to Admit order: No - Referrals Referrals: Aureliano Henry MD [Primary Care Provider] - - Patient Instructions Printed Discharge Instructions: Peripherally Inserted Central Catheter Additional Instructions: Continue medications through PICC line, please use heparin after use. Print Language: CYMRAES - Post Discharge Activity
[2018-01-29] MEDS ORDERED: ALTEPLASE 2 MG VIAL ONE (15:47)
== END 2018-01-29 18:25 ==
LOC: JER 15:02
PROC: 3C1ZX8Z Irrigation of Indwelling Device using Irrigating Substance, External Approach (ICD-10-PCS; principal; 2018-01-29)
PROC: 3C1ZX8Z Irrigation of Indwelling Device using Irrigating Substance, External Approach (ICD-10-PCS; 2018-01-29)
DX: T82.868A Thrombosis due to vascular prosthetic devices, implants and grafts, initial encounter (principal); I25.10 Atherosclerotic heart disease of native coronary artery without angina pectoris; I10 Essential (primary) hypertension; J44.9 Chronic obstructive pulmonary disease, unspecified; E03.9 Hypothyroidism, unspecified; K21.9 Gastro-esophageal reflux disease without esophagitis; E78.00 Pure hypercholesterolemia, unspecified; D64.9 Anemia, unspecified; I34.1 Nonrheumatic mitral (valve) prolapse; Z79.01 Long term (current) use of anticoagulants; Z85.3 Personal history of malignant neoplasm of breast; Z90.12 Acquired absence of left breast and nipple; Z96.651 Presence of right artificial knee joint
CPT/HCPCS: 99281-25; J2997

== ENCOUNTER 2018-02-05 11:27 | Inpatient (IN) | payer OTHER, MEDICARE ==
[2018-02-05 11:48] VITALS: BMI 32.8
--- NOTE | 2018-02-05 12:30 | PDOC ---
History of Present Illness <Rimma Corrales - Last Filed: 02/05/18 14:30> - General History Source: Patient Exam Limitations: No Limitations - History of Present Illness Initial Comments: 02/05/18 12:29 The patient is a 78F with a PMH of HLD, HTN, CAD, COPD, hypthyroidism, PICC line currently present for discitis (on vanc and cefepime) who is presenting with the inability to walk or feel anything in her feet. The patient states that 2 days ago she noted a worsening in her ability to walk and hasn't been able to walk since because she cannot move her feet and feels like her feet are numb. She denies any fever, chills, nausea, vomiting, CP, SOB. <Maximino Ayala - Last Filed: 02/05/18 19:49> - General Chief Complaint: Pain Stated Complaint: LEG PAIN Time Seen by Provider: 02/05/18 11:58 Past History <Rimma Corrales - Last Filed: 02/05/18 14:30> - Past Medical History Anemia: Yes Asthma: No Cancer: Yes (LEFT mastectomy) Cardiac Disorders: Yes (mvp) CVA: No COPD: No CHF: No Dementia: No Diabetes: No GI Disorders: No (acid reflux) Disorders: Yes HTN: Yes Hypercholesterolemia: Yes Liver Disease: No Seizures: No Thyroid Disease: Yes - Surgical History Abdominal Surgery: No Appendectomy: No Cardiac Surgery: No Cholecystectomy: No Lung Surgery: No Neurologic Surgery: No Orthopedic Surgery: Yes (r fx patella surg times 6, r knee replacement) - Family Disease History Family Disease History: Diabetes: Father, Heart Disease: Mother - Suicide/Smoking/Psychosocial Hx Smoking Status: No Smoking History: Never smoked Have you smoked in the past 12 months: No Number of Cigarettes Smoked Daily: 0 Information on smoking cessation initiated: No Hx Alcohol Use: No Drug/Substance Use Hx: No Substance Use Type: None Hx Substance Use Treatment: No <Maximino Ayala - Last Filed: 02/05/18 19:49> - Past Medical History Allergies/Adverse Reactions: Allergies Allergy/AdvReac Type Severity Reaction Status Date / Time No Known Drug Allergies Allergy Verified 01/12/18 11:07 Home Medications: Ambulatory Orders Alendronate Sodium 70 mg PO WEEKLY 10/16/11 Ferrous Fumarate [Iron] 325 mg PO DAILY 10/16/11 Levothyroxine [Synthroid -] 50 mcg PO DAILY 10/16/11 Metoprolol "Xl" (Sustain Act) [Toprol Xl] 50 mg PO DAILY 10/16/11 Rosuvastatin [Crestor -] 10 mg PO HS #0 01/06/14 Cyanocobalamin [Vitamin B12 -] 2,500 mcg PO DAILY 06/07/14 Losartan Potassium 50 mg PO DAILY 06/07/14 Pantoprazole Sodium [Protonix] 40 mg PO DAILY 06/07/14 Pramipexole Di-HCl [Mirapex] 0.25 mg PO BID 06/07/14 Apixaban [Eliquis] 5 mg PO BID 11/18/17 Ascorbate Calcium [Vitamin C] 500 mg PO DAILY 11/18/17 Pregabalin [Lyrica] 75 mg PO BID 11/18/17 Solifenacin Succinate [Vesicare -] 10 mg PO DAILY 11/18/17 Albuterol 2.5/Ipratropium 0.5 [Duoneb -] 1 amp NEB RTID #0 amp 11/21/17 Budesonide/Formeterol Fumarate [SYMBICORT 80/4.5mcg -] 2 puff IH BID inhaler Acetaminophen [Tylenol .Regular Strength -] 650 mg PO Q6H PRN tablet 01/23/18 Lidocaine 5% Patch [Lidoderm -] 1 patch TP DAILY patch 01/23/18 Lidocaine Patch Removal [Lidoderm Patch Removal] 1 each MC DAILY@2200 each Picc Line Flush [Picc Line Flush -] 8 ml IVPUSH PRN PRN ml 01/23/18 Polyethylene Glycol 3350 [Miralax 119 gm Btl -] 17 gm PO BID bottle 01/23/18 Sennosides [Senna -] 2 tab PO HS tablet 01/23/18 Vancomycin 1 Gram (Pre-Docked) [Vancomycin (Pre-Docked)] 1,000 mg IVPB BID 35 Days bag 01/23/18 Cefepime [Maxipime 2Gm Ivpb (Pre-Docked)] 2 gm IV BID 02/05/18 Docusate Sodium [Colace -] 100 mg PO HS 02/05/18 Heparin Sodium,Porcine/Pf [Heparin Lock Flush 10 Units/ml] 5 ml IV BID 02/05/18 L. Acidophilus/Pectin, [place] [Acidophilus Probiotic Capsule] 250 mg PO BID Nitroglycerin [Nitrostat] 0.4 mg SL PRN PRN 02/05/18 oxyCODONE SR [Oxycontin] 20 mg PO Q6H MDD 40mg 02/05/18 *Physical Exam - Vital Signs Last Vital Signs Temp Pulse Resp BP Pulse Ox 100.0 F H 114 H 20 138/71 97 02/05/18 14:11 02/05/18 11:38 02/05/18 11:38 02/05/18 11:38 02/05/18 11:38 <Rimma Corrales - Last Filed: 02/05/18 14:30> - Vital Signs Last Vital Signs Temp Pulse Resp BP Pulse Ox 98.6 F 114 H 20 138/71 97 02/05/18 11:38 02/05/18 11:38 02/05/18 11:38 02/05/18 11:38 02/05/18 11:38 - Physical Exam Comments: 02/05/18 18:32 GENERAL: Well developed, well nourished. Awake and alert. No acute distress. HEENT: Normocephalic, atraumatic. Hearing grossly normal. Moist mucous membranes. PERRLA, EOMI. No conjunctival pallor. Sclera are non-icteric. NECK: Supple. Full ROM. CARDIOVASCULAR: Regular rate and rhythm. No murmurs, rubs, or gallops. Distal pulses are 2+ and symmetric. PULMONARY: No evidence of respiratory distress. Lungs clear to auscultation bilaterally. No wheezing, rales or rhonchi. ABDOMINAL: Soft. Non-tender. Non-distended. No rebound or guarding. GENITOURINARY: No CVA tenderness bilaterally. MUSCULOSKELETAL: Normal range of motion at all joints. No bony deformities or tenderness. EXTREMITIES: No cyanosis. No clubbing. No edema. No calf tenderness or swelling. SKIN: Warm and dry. Normal capillary refill. No rashes. No jaundice. NEUROLOGICAL: Alert, awake, appropriate. Cranial nerves 2-12 intact. No deficits to light touch and temperature in face, upper extremities and lower extremities. Lower extremities 2/4 strength bilaterally.Normal speech. PSYCHIATRIC: Cooperative. Good eye contact. Appropriate mood and affect. <Maximino Ayala - Last Filed: 02/05/18 19:49> ED Treatment Course - LABORATORY CBC & Chemistry Diagram: 02/05/18 13:20 02/05/18 13:30 - ADDITIONAL ORDERS Additional order review: Laboratory Results 02/05/18 02/05/18 02/05/18 13:30 12:55 12:53 PT with INR 16.60 H INR 1.47 H PTT (Actin FS) 28.7 Sodium 139 Potassium 4.3 Chloride 102 Carbon Dioxide 29 Anion Gap 8 BUN 9 Creatinine 0.5 L Creat Clearance w eGFR > 60 Random Glucose 94 Calcium 9.3 Total Bilirubin 0.4 AST 14 L ALT 21 Alkaline Phosphatase 79 Creatine Kinase 19 L Cancelled Troponin I < 0.02 Cancelled B-Natriuretic Peptide 323.95 Cancelled Total Protein 6.6 Albumin 2.6 L 02/05/18 13:20 RBC 3.36 L MCV 86.8 MCHC 33.2 RDW 14.4 MPV 7.5 Neutrophils % 64.0 Lymphocytes % 22.0 Monocytes % 11.4 H Eosinophils % 2.1 Basophils % 0.5 - RADIOLOGY Radiology Studies Ordered: Category Date Time Status CXRPORT [CHEST X-RAY PORTABLE*] [RAD] Stat Radiology 02/05/18 14:20 Ordered <Rimma Corrales - Last Filed: 02/05/18 14:30> - LABORATORY CBC & Chemistry Diagram: 02/05/18 13:20 02/05/18 13:30 <Maximino Ayala - Last Filed: 02/05/18 19:49> Medical Decision Making - Medical Decision Making 02/05/18 18:33 The patient is a 78F with an extensive PMH who presents to the ER with complaints of worsening weakness from her ankles to her feet. She states that for the past 2 days she has not been able to walk. Will order basic labs to r/o electrolyte abnormality. Dr. Rogel, pt's neurologist, saw the patient and states that she has a soft tissue impingement on her L5/S1 which is causing an increased weakness in her LE from previous exams that he has done on her. He recommends admitting for a neuro workup and MRI. The patient cannot ambulate. Will microblog for admission. 02/05/18 19:48 Attending endorsed pt to hospitalist for admission. <Maximino Ayala - Last Filed: 02/05/18 19:49> *DC/Admit/Observation/Transfer - Discharge Dispostion Decision to Admit order: Yes <Rimma Corrales - Last Filed: 02/05/18 14:30> <Maximino Ayala - Last Filed: 02/05/18 19:49> Diagnosis at time of Disposition: Leg pain
--- NOTE | 2018-02-05 12:52 | PDOC ---
Attending Attestation - Resident Resident Name: Maximino Ayala - ED Attending Attestation I have performed the following: I have examined & evaluated the patient, The case was reviewed & discussed with the resident, I agree w/resident's findings & plan, Exceptions are as noted - Physicial Exam PE: 02/05/18 14:24 awake alert lungs clear bilaterally heart rrr no mrg. abd soft nt nd. ext wwp. bilat lower ext edema , warmth, non pitting. 2+dp/ pt 4/5 bilat lower ext strength, sensation intact bilat lower ext. nuero awake oriented x 3. CN intact. lower ext see below. right upper ext 4/5 limited due to pain shoulder. left 5/5. speech clear. - Medical Decision Making 02/05/18 12:42 78 yo F with h/o recently diagnosed discitis of lower back. chronic pain. here today c/o bilat foot pain and swelling. states she was unable to move her feet earlier. describes as pins and needles in her feet. was sent from [facility]. no lateralizing sxs. no f/c feels legs are more swollen than normal. no f/c no cp no sob onexam pt has 4/5 bilat lower ext, df/ pf. 2+dp/ pt pulses. bilat lower ext edema . sensation intact. differential weakness secondary to infection, electrlyte abnormality, worsening nueropathy. will d/w pt nuerologist dr. ralph. will see pt in the ed . 02/05/18 14:25 d/w dr ralph, await eval. labs unremarkable. bnp min elevated 346. <Rimma Corrales - Last Filed: 02/05/18 14:24> - HPI HPI: 02/05/18 13:10 The patient is a 78-year-old female living at [facility], with a significant past medical history of HTN, hyperlipidemia, COPD, CAD, and hypothyroidism, recently diagnosed with discitis of the lower back, who presents to the ED with 2 days of worsening bilateral foot swelling and pain. The patient reports that she was unable to move her feet today due a numbing sensation. She denies any fever, chills, nausea, vomiting, diarrhea, or abdominal pain. She denies any chest pain or shortness of breath. Allergies: NKDA PCP: Dr. Maximino Altamirano - Medical Decision Making 02/05/18 17:28 Dr. Rogel was paged and notified via phone service. <Maya Doan - Last Filed: 02/05/18 17:28> Heart Score/ECG Review #1 General ECG Interpretation: Sinus Rhythm, Normal Rate (100), Normal Intervals, No acute ischemic changes - ECG Intrepretation Rhythm: Regular Rhythm - [place]: Left [place] Deviation <Rimma Corrales - Last Filed: 02/05/18 14:24> Attestations - Attestations 02/05/18 13:12 Documentation prepared by Maya Doan, acting as territory sales manager medical for Rimma Corrales MD. <Maya Doan - Last Filed: 02/05/18 17:28>
[2018-02-05 13:36] LABS: BASO % 0.5 % (0-2.0); EOS % 2.1 % (0-4.5); HEMATOCRIT 29.2 % (32.4-45.2); HEMOGLOBIN 9.7 GM/dL (10.7-15.3); MCH 28.8 pg (25.7-33.7); MCHC 33.2 g/dl (32.0-36.0); MEAN CELL VOLUME 86.8 fl (80-96); MEAN PLT VOLUME 7.5 fl (7.5-11.1); MONO % 11.4 % (3.8-10.2); PLATELET COUNT 224 K/MM3 (134-434); RBC 3.36 M/mm3 (3.60-5.2); RDW 14.4 % (11.6-15.6); WHITE BLOOD COUNT 5.9 K/mm3 (4.0-10.0)
[2018-02-05 13:46] LABS: INR 1.47 (0.82-1.09); PROTHROMBIN TIME (PATIENT) 16.6 SEC (9.7-13.0)
[2018-02-05 13:48] LABS: ACTIVATED PTT 28.7 SECONDS (26.9-34.4)
[2018-02-05 14:00] LABS: ALBUMIN 2.6 g/dl (3.4-5.0); BLOOD UREA NITROGEN 9 mg/dL (7-18); CHLORIDE 102 mmol/L (98-107); GLUCOSE,RANDOM 94 mg/dL (74-106); POTASSIUM 4.3 mmol/L (3.5-5.1); SGOT/AST 14 U/L (15-37); SODIUM 139 mmol/L (136-145)
[2018-02-05 14:09] LABS: ALK PHOS 79 U/L (45-117); ANION GAP 8 (8-16); BILIRUBIN,TOTAL 0.4 mg/dL (0.2-1.0); CALCIUM 9.3 mg/dL (8.5-10.1); CO2 29 mmol/L (21-32); CREATININE 0.5 mg/dL (0.55-1.02); N-TERMINAL BNP 323.95 pg/ml (5-450); SGPT/ALT 21 U/L (12-78); TOT PROT 6.6 g/dl (6.4-8.2)
--- NOTE | 2018-02-05 15:29 | EKG ---
Test Reason : Blood Pressure : / mmHG Vent. Rate : 100 BPM Atrial Rate : 100 BPM P-R Int : 222 ms QRS Dur : 094 ms QT Int : 352 ms P-R-T Axes : 051 -07 073 degrees QTc Int : 454 ms SINUS RHYTHM WITH 1ST DEGREE A-V BLOCK OTHERWISE NORMAL ECG WHEN COMPARED WITH ECG OF 12-JAN-2018 14:01, NONSPECIFIC T WAVE ABNORMALITY NO LONGER EVIDENT IN INFERIOR LEADS Confirmed by CHERYL MANCILLA, YSABEL ([id number]) on 02/05/2018 3:28:50 PM Referred By: Confirmed By:YSABEL LUNA MD
--- NOTE | 2018-02-05 16:32 | CON.NEURO ---
Consult Consult Specialty:: Juan F Referred by:: ER Dr Miller Reason for Consultation:: leg weakness - History of Present Illness History of Present Illness: 78 woman well know to me with extensive medical history including 1. Coronary artery disease. 2. Cardiac arrhythmia/atrial fibrillation. 3. Anticoagulation. 4. Osteoarthritis. 5. Degenerative disc disease. 6. Chronic low back pain 7. Headache Apparently patient was at [facility] on a recent admission. I was not called to see the patient, the patient was evaluated by different neurologists. Patient at that time was complaining of back pain had an MRI of the lumbosacral spine questionable discitis patient underwent biopsy and was discharged on IV antibiotic. [facility] with a chief complaint of leg weakness I was called by the emergency room to see the patient as her neurologist. On 01/15/2018 patiet came in with leg wekaness and back pain, MRI LS psine done and revealed DJD and ?? soft tissue swelling Patient had a PC Bx ?? results The coding consultant mention neurosurgery consult Patient was treated with OV ABx and Dc to [facility] for pT and IV Ab - History Source Limitations to Obtaining History: No Limitations - Past Medical History PROOFREADER: Yes: Peripheral Neuropathy, TIA Cardio/Vascular: Yes: AFIB, CAD, HTN, Hyperlipdemia Pulmonary: Yes: Asthma, COPD Gastrointestinal: Yes: GERD Endocrine: Yes: Hypothyroidism - Past Surgical History Past Surgical History: Yes: Joint Replacement (left hip, TKR right), Mastectomy (Left) - Alcohol/Substance Use Hx Alcohol Use: No - Smoking History Smoking history: Never smoked Have you smoked in the past 12 months: No Aproximately how many cigarettes per day: 0 - Social History History of Recent Travel: No Home Medications - Allergies Allergies/Adverse Reactions: Allergies Allergy/AdvReac Type Severity Reaction Status Date / Time No Known Drug Allergies Allergy Verified 01/12/18 11:07 - Home Medications Home Medications: Ambulatory Orders Alendronate Sodium 70 mg PO WEEKLY 10/16/11 Ferrous Fumarate [Iron] 325 mg PO DAILY 10/16/11 Levothyroxine [Synthroid -] 50 mcg PO DAILY 10/16/11 Metoprolol "Xl" (Sustain Act) [Toprol Xl] 50 mg PO DAILY 10/16/11 Rosuvastatin [Crestor -] 10 mg PO HS #0 01/06/14 Cyanocobalamin [Vitamin B12 -] 2,500 mcg PO DAILY 06/07/14 Losartan Potassium 50 mg PO DAILY 06/07/14 Pantoprazole Sodium [Protonix] 40 mg PO DAILY 06/07/14 Pramipexole Di-HCl [Mirapex] 0.25 mg PO BID 06/07/14 Apixaban [Eliquis] 5 mg PO BID 11/18/17 Ascorbate Calcium [Vitamin C] 500 mg PO DAILY 11/18/17 Pregabalin [Lyrica] 75 mg PO BID 11/18/17 Solifenacin Succinate [Vesicare -] 10 mg PO DAILY 11/18/17 Albuterol 2.5/Ipratropium 0.5 [Duoneb -] 1 amp NEB RTID #0 amp 11/21/17 Budesonide/Formeterol Fumarate [SYMBICORT 80/4.5mcg -] 2 puff IH BID inhaler Acetaminophen [Tylenol .Regular Strength -] 650 mg PO Q6H PRN tablet 01/23/18 Lidocaine 5% Patch [Lidoderm -] 1 patch TP DAILY patch 01/23/18 Lidocaine Patch Removal [Lidoderm Patch Removal] 1 each DAILY@2200 each Picc Line Flush [Picc Line Flush -] 8 ml IVPUSH PRN PRN ml 01/23/18 Polyethylene Glycol 3350 [Miralax 119 gm Btl -] 17 gm PO BID bottle 01/23/18 Sennosides [Senna -] 2 tab PO HS tablet 01/23/18 Vancomycin 1 Gram (Pre-Docked) [Vancomycin (Pre-Docked)] 1,000 mg IVPB BID 35 Days bag 01/23/18 Cefepime [Maxipime 2Gm Ivpb (Pre-Docked)] 2 gm IV BID 02/05/18 Docusate Sodium [Colace -] 100 mg PO HS 02/05/18 Heparin Sodium,Porcine/Pf [Heparin Lock Flush 10 Units/ml] 5 ml IV BID 02/05/18 L. Acidophilus/Pectin, [place] [Acidophilus Probiotic Capsule] 250 mg PO BID Nitroglycerin [Nitrostat] 0.4 mg SL PRN PRN 02/05/18 oxyCODONE SR [Oxycontin] 20 mg PO Q6H MDD 40mg 02/05/18 Physical Exam-Neuro Vital Signs: Vital Signs Temperature 100.0 F H 02/05/18 14:11 Pulse Rate 114 H 02/05/18 11:38 Respiratory Rate 20 02/05/18 11:38 Blood Pressure 138/71 02/05/18 11:38 O2 Sat by Pulse Oximetry (%) 97 02/05/18 11:38 Labs: CBC, BMP 02/05/18 13:20 02/05/18 13:30 INR, PTT INR 1.47 (0.82-1.09) H 02/05/18 12:55 - Neuro Exam Level Of Consciousness: Yes: Oriented to Person, Oriented to Place Eyes: Yes: PERRLA Speech: WNL Dominant Hand: Right Cranial Nerves II-XII Intact: Yes Gag: Present DTR's: 1+ Left Bicep, 1+ Right Bicep, 1+ Left Brachioradialis, 1+ Right Brachioradialis Response to light touch: Abnormal Response to pain prick: Abnormal Response to temperature: Abnormal Response to vibration: Abnormal Motor Strength: 1/5: Right Leg, 2/5: Left Leg, 3/5: Left Arm, Right Arm Gait: Deferred Imaging - Results MRI: Image Reviewed Problem List - Problems (1) Low back pain Assessment/Plan: I reviewed the images with Dr Hong Patient still with right lower leg weakness On IV ABx Patient meds were changed at the [facility] and patient feels weaker today No sensory level for cord compression ---> Doubt OM * Spinal Stenosis * ?? soft tissue swelling * L radiculopathy 1. Bed rest 2. Lyrica 3. ESR 4. Repeat MRI LS spine tomorrow 5. PT 6. Diclofenac 7. Suggest taper Abx Code(s): M54.5 - LOW BACK PAIN
--- NOTE | 2018-02-05 19:41 | PN ---
Teaching Attending Note Name of Resident: Garcia Frias ATTENDING PHYSICIAN STATEMENT I saw and evaluated the patient. I reviewed the resident's note and discussed the case with the resident. I agree with the resident's findings and plan as documented. SUBJECTIVE: Patient is a 78 year old woman with a PMH of HLD, HTN, CAD, COPD, Afib (on Eliquis), hypthyroidism, right arm PICC line, on vancomycin and cefepime for discitis presenting with the inability to walk or feel anything in her feet. The patient states that 2 days ago she noted a worsening in her ability to walk and hasn't been able to walk since because she cannot move her feet and feels like her feet are numb. She denies any fever, chills, nausea, vomiting, CP, SOB. Had biopsy confirmation of discitis here on the of this month. OBJECTIVE: Alert, in pain, sad and in no acute respiratory distress. Vital Signs Period Temp Pulse Resp BP Sys/Bocanegra Pulse Ox Last 24 Hr 97.8 F-100.0 F 105-114 16-20 138-154/71-78 95-97 HEENT: No Jaundice, eye redness or discharge, PERRLA, EOMI. Normocephalic, atraumatic. External ears are normal and hearing is grossly intact. No nasal discharge. Neck: Supple, nontender. No palpable adenopathy or thyromegaly. No JVD Chest: Good effort. Clear to auscultation and percussion. Heart: Regular. No S3, rub or murmur Abdomen: Not distended, soft, nontender and no HSM. No rebound or guarding. Normoactive bowel sounds. Ext: Peripheral pulses intact. No leg edema. Lumbosacral vertebral tenderness. Skin: Warm and dry. No petechiae, rash or ecchymosis. Neuro: Alert. Oriented x3. CN 2-12 grossly intact. Curled up in position. Diminished sensation in both feet up to the ankle. DTR are symmetric. Gait cannot be tested for safety reasons. Current Medications Generic Name Dose Route Start Last Admin Trade Name Freq PRN Reason Stop Dose Admin Albuterol/Ipratropium 1 amp 02/05/18 20:00 Duoneb - NEB RTID NICOLE Apixaban 5 mg 02/05/18 22:00 Eliquis - PO BID NICOLE Budesonide/Formoterol Fumarate 2 puff 02/05/18 22:00 Symbicort 80/4.5mcg - IH BID [facility] Cyanocobalamin 2,500 mcg 02/06/18 10:00 Vitamin B12 - PO DAILY [facility] Docusate Sodium 100 mg 02/05/18 22:00 Colace - PO HS NICOLE IV Flush 8 ml 02/05/18 19:56 Picc Line Flush IVPUSH PRN PRN Protocol Levothyroxine Sodium 50 mcg 02/06/18 10:00 Synthroid - PO DAILY [facility] Lidocaine 1 patch 02/06/18 10:00 Lidoderm Patch - TP DAILY [facility] Losartan Potassium 50 mg 02/06/18 10:00 Cozaar - PO DAILY [facility] Metoprolol Succinate 50 mg 02/06/18 10:00 Toprol Xl - PO DAILY [facility] Miscellaneous 1 each 02/05/18 22:00 Lidoderm Patch Removal MC DAILY@2200 [facility] Non-Formulary Medication 70 mg 02/05/18 20:00 Alendronate Sodium [Alendronate Sodium] PO WEEKLY [facility] Non-Formulary Medication 500 mg 02/06/18 10:00 Ascorbate Calcium [Vitamin C] PO DAILY [facility] Non-Formulary Medication 2 gm 02/05/18 22:00 Cefepime IV BID [facility] Non-Formulary Medication 325 mg 02/06/18 10:00 Ferrous Fumarate [Iron] PO DAILY [facility] Non-Formulary Medication 250 mg 02/05/18 22:00 L. Acidophilus/Pectin, [employer] [Acidophilus Probiotic Capsule] PO BID [facility]ICO[facility] Non-Formulary Medication 10 mg 02/06/18 10:00 Solifenacin Succinate [Vesicare -] PO DAILY [facility] Non-Formulary Medication 1,000 mg 02/05/18 22:00 Vancomycin (Pre-Docked) IVPB BID [facility] Pantoprazole Sodium 40 mg 02/06/18 10:00 Protonix - PO DAILY [facility] Polyethylene Glycol 17 gm 02/05/18 22:00 Miralax (For Daily Use) - PO BID [facility] Pramipexole Dihydrochloride 0.25 mg 02/05/18 22:00 Mirapex - PO BID [facility] Pregabalin 150 mg 02/05/18 22:00 Lyrica - PO BID [facility] Pregabalin 75 mg 02/05/18 22:00 Lyrica - PO BID [facility] Rosuvastatin Calcium 10 mg 02/05/18 22:00 Crestor - PO HS NICOLE Senna 2 tab 02/05/18 22:00 Senna - PO HS NICOLE Tramadol HCl 50 mg 02/05/18 18:18 Ultram - PO Q8H PRN PAIN 4-6 Home Medications Medication Instructions Recorded Alendronate Sodium 70 mg PO WEEKLY 10/16/11 Ferrous Fumarate [Iron] 325 mg PO DAILY 10/16/11 Levothyroxine [Synthroid -] 50 mcg PO DAILY 10/16/11 Metoprolol "Xl" (Sustain Act) 50 mg PO DAILY 10/16/11 [Toprol Xl] Rosuvastatin [Crestor -] 10 mg PO HS #0 01/06/14 Cyanocobalamin [Vitamin B12 -] 2,500 mcg PO DAILY 06/07/14 Losartan Potassium 50 mg PO DAILY 06/07/14 Pantoprazole Sodium [Protonix] 40 mg PO DAILY 06/07/14 Pramipexole Di-HCl [Mirapex] 0.25 mg PO BID 06/07/14 Apixaban [Eliquis] 5 mg PO BID 11/18/17 Ascorbate Calcium [Vitamin C] 500 mg PO DAILY 11/18/17 Pregabalin [Lyrica] 75 mg PO BID 11/18/17 Solifenacin Succinate [Vesicare -] 10 mg PO DAILY 11/18/17 Albuterol 2.5/Ipratropium 0.5 1 amp NEB RTID #0 amp 11/21/17 [Duoneb -] Budesonide/Formeterol Fumarate 2 puff IH BID inhaler 11/21/17 [SYMBICORT 80/4.5mcg -] Acetaminophen [Tylenol .Regular 650 mg PO Q6H PRN tablet 01/23/18 Strength -] Lidocaine 5% Patch [Lidoderm -] 1 patch TP DAILY patch 01/23/18 Lidocaine Patch Removal [Lidoderm 1 each MC DAILY@2200 each 01/23/18 Patch Removal] Picc Line Flush [Picc Line Flush -] 8 ml IVPUSH PRN PRN ml 01/23/18 Polyethylene Glycol 3350 [Miralax 17 gm PO BID bottle 01/23/18 119 gm Btl -] Sennosides [Senna -] 2 tab PO HS tablet 01/23/18 Vancomycin 1 Gram (Pre-Docked) 1,000 mg IVPB BID 35 Days bag 01/23/18 [Vancomycin (Pre-Docked)] Cefepime [Maxipime 2Gm Ivpb 2 gm IV BID 02/05/18 (Pre-Docked)] Docusate Sodium [Colace -] 100 mg PO HS 02/05/18 Heparin Sodium,Porcine/Pf [Heparin 5 ml IV BID 02/05/18 Lock Flush 10 Units/ml] L. Acidophilus/Pectin, [employer] 250 mg PO BID 02/05/18 [Acidophilus Probiotic Capsule] Nitroglycerin [Nitrostat] 0.4 mg SL PRN PRN 02/05/18 oxyCODONE SR [Oxycontin] 20 mg PO Q6H MDD 40mg 02/05/18 Abnormal Lab Results 02/05/18 02/05/18 02/05/18 12:55 13:20 13:30 RBC 3.36 L Hgb 9.7 L Hct 29.2 L Monocytes % 11.4 H PT with INR 16.60 H INR 1.47 H Creatinine 0.5 L AST 14 L Creatine Kinase 19 L C-Reactive Protein Albumin 2.6 L 02/05/18 13:30 RBC Hgb Hct Monocytes % PT with INR INR Creatinine AST Creatine Kinase C-Reactive Protein 4.2 H Albumin ASSESSMENT AND PLAN: 1. Discitis - Patient being admitted as an inpatient for continued IV antibiotics (Cefepime and Vancomycin) and MRI to rule out cord compression, hematoma or other complications. Check vancomycin trough level. Will get result of the culture of her disc to possibly deescalate antibiotics coverage. PT consult after MRI. Continue pain control and generous emotional support. 2. Afib - Rate controlled and on Eliquis. 3. Anemia - Do basic anemia workup with stool guaiac and iron studies. 4. Polypharmacy -Upon discharge urge PCP to review medications and DC those that are not absolutely essential. 5. DVT prophylaxis - On Eliquis 5 mg po bid. 6. Advance directives - Full code
[2018-02-05] MEDS ORDERED: PATIENT'S OWN MEDICATION (NON-FORMULARY) (Alendronate Sodium [Alendronate Sodium] 70 MG) PO SCH (20:00)
[2018-02-05] MEDS ORDERED: ALBUTEROL SO4 2.5/IPRATROPIUM 0.5 INH SOL 3 ML VIAL.NEB. NEB ONE (20:22)
[2018-02-05] MEDS: ALBUTEROL SO4 2.5/IPRATROPIUM 0.5 INH SOL 3 ML VIAL.NEB. NEB SCH (20:27)
[2018-02-05] MEDS ORDERED: LACTOBACILLUS ACIDOPHILUS 1 TABLET PO SCH ×2 (21:45→22:00)
--- NOTE | 2018-02-05 21:49 | HP ---
CHIEF COMPLAINT: weakness, numbness and tingling PCP: Dr. Henry HISTORY OF PRESENT ILLNESS: 78 year old female with a hx of HLD, HTN, CAD, COPD, hypothyroidism and PICC line (1.5 weeks), afib? (on eliquis) presents for 2 day history of bilateral lower extremity weakness and paresthesias below the ankles. She reports no inciting factors. Reports that she is unable to ambulate. Denies any pain down her lower extremities. Denies urinary or fecal incontinence. She is on long- term antibiotics for "discitis" that she states she needs to be on for 5 weeks. Her neurologist saw the patient and suggested soft-tissue L5/S1 impingement. Denies any chest pain, shortness of breath, nausea, vomiting, diarrhea. ER course was notable for: (1) Hgb 9.7 (2) CRP 4.2 (3) EKG SR 1st degree AV block PAST MEDICAL HISTORY: as above PAST SURGICAL HISTORY: -bilateral knee replacements Social History: Smoking: none Alcohol: none Drugs: none Allergies No Known Drug Allergies Allergy (Verified 01/12/18 11:07) HOME MEDICATIONS: Home Medications Medication Instructions Recorded Alendronate Sodium 70 mg PO WEEKLY 10/16/11 Ferrous Fumarate [Iron] 325 mg PO DAILY 10/16/11 Levothyroxine [Synthroid -] 50 mcg PO DAILY 10/16/11 Metoprolol "Xl" (Sustain Act) 50 mg PO DAILY 10/16/11 [Toprol Xl] Rosuvastatin [Crestor -] 10 mg PO HS #0 01/06/14 Cyanocobalamin [Vitamin B12 -] 2,500 mcg PO DAILY 06/07/14 Losartan Potassium 50 mg PO DAILY 06/07/14 Pantoprazole Sodium [Protonix] 40 mg PO DAILY 06/07/14 Pramipexole Di-HCl [Mirapex] 0.25 mg PO BID 06/07/14 Apixaban [Eliquis] 5 mg PO BID 11/18/17 Ascorbate Calcium [Vitamin C] 500 mg PO DAILY 11/18/17 Pregabalin [Lyrica] 75 mg PO BID 11/18/17 Solifenacin Succinate [Vesicare -] 10 mg PO DAILY 11/18/17 Albuterol 2.5/Ipratropium 0.5 1 amp NEB RTID #0 amp 11/21/17 [Duoneb -] Budesonide/Formeterol Fumarate 2 puff IH BID inhaler 11/21/17 [SYMBICORT 80/4.5mcg -] Acetaminophen [Tylenol .Regular 650 mg PO Q6H PRN tablet 01/23/18 Strength -] Lidocaine 5% Patch [Lidoderm -] 1 patch TP DAILY patch 01/23/18 Lidocaine Patch Removal [Lidoderm 1 each MC DAILY@2200 each 01/23/18 Patch Removal] Picc Line Flush [Picc Line Flush -] 8 ml IVPUSH PRN PRN ml 01/23/18 Polyethylene Glycol 3350 [Miralax 17 gm PO BID bottle 01/23/18 119 gm Btl -] Sennosides [Senna -] 2 tab PO HS tablet 01/23/18 Vancomycin 1 Gram (Pre-Docked) 1,000 mg IVPB BID 35 Days bag 01/23/18 [Vancomycin (Pre-Docked)] Cefepime [Maxipime 2Gm Ivpb 2 gm IV BID 02/05/18 (Pre-Docked)] Docusate Sodium [Colace -] 100 mg PO HS 02/05/18 Heparin Sodium,Porcine/Pf [Heparin 5 ml IV BID 02/05/18 Lock Flush 10 Units/ml] L. Acidophilus/Pectin, Ophir 250 mg PO BID 02/05/18 [Acidophilus Probiotic Capsule] Nitroglycerin [Nitrostat] 0.4 mg SL PRN PRN 02/05/18 oxyCODONE SR [Oxycontin] 20 mg PO Q6H MDD 40mg 02/05/18 REVIEW OF SYSTEMS CONSTITUTIONAL: Absent: fever, chills, diaphoresis, generalized weakness, malaise, loss of appetite, weight change HEENT: Absent: rhinorrhea, nasal congestion, throat pain, throat swelling, difficulty swallowing, mouth swelling, ear pain, eye pain, visual changes CARDIOVASCULAR: Absent: chest pain, syncope, palpitations, irregular heart rate, lightheadedness , peripheral edema RESPIRATORY: Absent: cough, shortness of breath, dyspnea with exertion, orthopnea, wheezing, stridor, hemoptysis GASTROINTESTINAL: Absent: abdominal pain, abdominal distension, nausea, vomiting, diarrhea, constipation, melena, hematochezia GENITOURINARY: Absent: dysuria, frequency, urgency, hesitancy, hematuria, flank pain, genital pain MUSCULOSKELETAL: Absent: myalgia, arthralgia, joint swelling, back pain, neck pain SKIN: Absent: rash, itching, pallor HEMATOLOGIC/IMMUNOLOGIC: Absent: easy bleeding, easy bruising, lymphadenopathy, frequent infections ENDOCRINE: Absent: unexplained weight gain, unexplained weight loss, heat intolerance, cold intolerance NEUROLOGIC: focal weakness or paresthesias b/l lower extremities Absent: headache, dizziness, unsteady gait, seizure, mental status changes, bladder or bowel incontinence PSYCHIATRIC: Absent: anxiety, depression, suicidal or homicidal ideation, hallucinations. PHYSICAL EXAMINATION Vital Signs - 24 hr 02/05/18 02/05/18 02/05/18 11:38 14:11 17:23 Temperature 98.6 F 100.0 F H 97.8 F Pulse Rate 114 H Pulse Rate [ 105 H Left Apical] Respiratory 20 16 Rate Blood Pressure 138/71 Blood Pressure 154/78 [Right Arm] O2 Sat by Pulse 97 95 Oximetry (%) 02/05/18 20:45 Temperature 98.3 F Pulse Rate 100 H Pulse Rate [ Left Apical] Respiratory 18 Rate Blood Pressure 155/80 Blood Pressure [Right Arm] O2 Sat by Pulse Oximetry (%) GENERAL: A&Ox3, no acute distress EYES: PERRLA, EOMI ENT: Moist mucus membranes NECK: No JVD LUNGS: CTA, no wheezes HEART: RRR, no murmurs ABDOMEN: obese, soft, nontender, BS present MUSCULOSKELETAL: No CVA Tenderness EXTREMITIES: 2+ pulses, no edema. 4/5 muscle strength LUE, 5/5 RUE, 3/5 muscle strength LLE and RRE, 1/5 muscle strength in foot plantarflexion b/l. NEUROLOGICAL: Cranial nerves II-XII intact. Loss of sensation along the bilateral feet below the ankles Laboratory Results - last 24 hr 02/05/18 02/05/18 02/05/18 12:53 12:55 13:20 WBC 5.9 RBC 3.36 L Hgb 9.7 L Hct 29.2 L MCV 86.8 MCH 28.8 MCHC 33.2 RDW 14.4 Plt Count 224 D MPV 7.5 Neutrophils % 64.0 Lymphocytes % 22.0 Monocytes % 11.4 H Eosinophils % 2.1 Basophils % 0.5 Nucleated RBC % 0 PT with INR 16.60 H INR 1.47 H PTT (Actin FS) 28.7 Sodium Potassium Chloride Carbon Dioxide Anion Gap BUN Creatinine Creat Clearance w eGFR POC Glucometer Random Glucose Calcium Total Bilirubin AST ALT Alkaline Phosphatase Creatine Kinase Cancelled Troponin I Cancelled C-Reactive Protein B-Natriuretic Peptide Cancelled Total Protein Albumin 02/05/18 02/05/18 02/05/18 13:30 13:30 17:41 WBC RBC Hgb Hct MCV MCH MCHC RDW Plt Count MPV Neutrophils % Lymphocytes % Monocytes % Eosinophils % Basophils % Nucleated RBC % PT with INR INR PTT (Actin FS) Sodium 139 Potassium 4.3 Chloride 102 Carbon Dioxide 29 Anion Gap 8 BUN 9 Creatinine 0.5 L Creat Clearance w eGFR > 60 POC Glucometer 135.54818 Random Glucose 94 Calcium 9.3 Total Bilirubin 0.4 AST 14 L ALT 21 Alkaline Phosphatase 79 Creatine Kinase 19 L Troponin I < 0.02 C-Reactive Protein 4.2 H B-Natriuretic Peptide 323.95 Total Protein 6.6 Albumin 2.6 L ASSESSMENT/PLAN: HLD, HTN, CAD, COPD, hypothyroidism and PICC line (1.5 weeks), afib? (on eliquis ) presents for 2 day hx of weakness and paresthesias #Weakness/Paresthesias: possible soft tissue impingement on L5/S1 per neuro -MRI in AM -continue #Discitis: patient has PICC and is on antibiotics long-term -continue vanc/cefepime #Chronic Back Pain: stable -continue oxycodone -continue lyrica -continue tramadol PRN #Hx of Afib: in sinus rhythm -continue eliquis 5mg PO BID -continue toprol XL 50mg PO #CAD: stable -continue rosuvastatin #Hypertension: not hypertensive -continue toprol XL -continue losartan #Anemia: chronic -continue iron #Hypothyroidism: stable -50mcg levothyroxine #FEN -no standing fluids -lytes WNL -low sodium diet #Prophylaxis -on eliquis #Disposition: -admit obs Visit type - Emergency Visit Emergency Visit: Yes ED Registration Date: 02/05/18 Care time: The patient presented to the Emergency Department on the above date and was hospitalized for further evaluation of their emergent condition. - New Patient This patient is new to me today: Yes Date on this admission: 02/05/18 - Critical Care Critical Care patient: No Hospitalist Screening - Colonoscopy Questionnaire Colonoscopy Questionnaire: Colonoscopy Questionnaire - Patient: 50 - 75 years old and never had a screening colonoscopy: Unknown History of colon or rectal polyps, or CA: Unknown History of IBD, Crohn's disease or UC: Unknown History of abdominal radiation therapy as a child: Unknown - Relative: 1 with colon or rectal CA, or polyps at age 60 or younger: Unknown Colon or rectal CA diagnosed at age 45 or younger: Unknown Multiple relatives with colon or rectal CA: Unknown - Outcome: Screening Result: Negative Screen
[2018-02-05] MEDS: traMADol HCL 50 MG TABLET PO PRN (21:59)
[2018-02-05] MEDS ORDERED: CEFEPIME 2 GM IV SCH (22:00)
[2018-02-05] MEDS ORDERED: PREGABALIN 50 MG CAPSULE PO SCH (22:00)
[2018-02-05] MEDS ORDERED: [UNRECOGNIZED DRUG - OTHER] PO SCH (22:00)
[2018-02-05] MEDS ORDERED: CEFEPIME HCL/D5W 1 GM/50 ML PREMIX BAG IVPB ONE (22:00)
[2018-02-05] MEDS ORDERED: VANCOMYCIN 1,000 MG in DEXTROSE 5%-WATER - 250 ML IVPB ONE (22:00)
[2018-02-05] MEDS ORDERED: DICLOFENAC SODIUM 25 MG TABLET.DR PO SCH (22:00)
[2018-02-05] MEDS ORDERED: VANCOMYCIN 1000 MG IVPB SCH (22:00)
[2018-02-05] MEDS ORDERED: CEFEPIME HCL/D5W 2 GM/50 ML PREMIX IVPB ONE ×2 (22:00)
[2018-02-05] MEDS ORDERED: ROSUVASTATIN CA 40 MG TABLET PO SCH (22:00)
[2018-02-05] MEDS ORDERED: PREGABALIN 100 MG CAPSULE PO SCH (22:00)
[2018-02-05] MEDS: BUDESONIDE/FORMETEROL FUMARATE 80/4.5 mcg INHALER IH SCH (23:26)
[2018-02-05] MEDS: SENNOSIDES 8.6MG TABLET (FP) PO SCH (23:27)
[2018-02-05] MEDS: DOCUSATE SODIUM 100 MG CAPSULE (FP) PO SCH (23:27)
[2018-02-05] MEDS: LIDOCAINE PATCH REMOVAL MC SCH (23:30)
[2018-02-06] MEDS: PRAMIPEXOLE DIHYDROCHLORIDE 0.25 MG TABLET PO SCH ×3 (00:36→22:02)
[2018-02-06] MEDS: LACTOBACILLUS ACIDOPHILUS 1 TABLET PO SCH ×3 (00:36→22:05)
[2018-02-06] MEDS: APIXABAN 5 MG TABLET PO SCH ×3 (00:37→22:02)
[2018-02-06] MEDS: POLYETHYLENE GLYCOL 3350 119 GM BTL PO SCH ×4 (00:38→22:20)
[2018-02-06] MEDS ORDERED: HEPARIN NA (PORCINE) 5,000 UNITS/ML 1ML VIAL SQ SCH (02:00)
[2018-02-06] MEDS ORDERED: oxyCODONE HCL 10 MG SUSTAINED ACTING TABLET PO SCH (06:00)
[2018-02-06] MEDS: LEVOTHYROXINE NA 50 MCG TABLET (FP) PO SCH (06:26)
[2018-02-06] MEDS: oxyCODONE HCL 10 MG SUSTAINED ACTING TABLET PO SCH ×3 (06:26→17:43)
[2018-02-06 07:14] LABS: HEMATOCRIT 27.2 % (32.4-45.2); HEMOGLOBIN 9.3 GM/dL (10.7-15.3); MCH 29.4 pg (25.7-33.7); MCHC 34.3 g/dl (32.0-36.0); MEAN CELL VOLUME 85.7 fl (80-96); MEAN PLT VOLUME 7.4 fl (7.5-11.1); PLATELET COUNT 198 K/MM3 (134-434); RBC 3.18 M/mm3 (3.60-5.2); RDW 14.8 % (11.6-15.6)
[2018-02-06] MEDS: ALBUTEROL SO4 2.5/IPRATROPIUM 0.5 INH SOL 3 ML VIAL.NEB. NEB SCH ×3 (07:20→21:33)
--- NOTE | 2018-02-06 07:41 | PN ---
Progress Note (short form) - Note Progress Note: NEUROSURGERY c/o worsening low back pain radiating to L > R hip/thigh and inability to ambulate in early January . Earlier in the year had undergone injection under pain management care (? Dr Newman or Dr Karimi) for chronic LBP and sciatica. Sustained fall at SNF 5[facility]6 weeks ago. Had severe pain and on narcotic painkillers. Found to have UTI though spiked to 102.7 on prior admission. LS spine MRI showed enhancing epidural and paraspinal tissues/facets suspicious for infection. Blood cultures negative. S/P L L5-S1 facet soft tissue biopsy, also negative. Been on Vanco and Cefepime x 2 1/2 weeks. Had L > R leg weakness previously, now c/o R > L leg weakness. No new bowel/bladder issues. Denies further fever or chill. PMH: HTN, CAD, COPD, Afib on AC, hypercholesterolemia, hypothyroidism PE: AF, VSS HEENT- NC, AT; Neck- supple; Cor- RR; Lungs- CTA; Abd- obese, benign; Ext- no sign of DVT CN- intact II-XII; Motor- 4+-5/5 throughout except R DF 4 and L DF 4+; Sensation - decreased RL L4-5-S1 to PP/LT/vibration; DTR- hyporeflexic B WBC 6.8 last admission now 4; ESR 101 prior admission now pending; CRP 27.3 prior admission now 4.2 Prior Urine Cx- E Coli Prior LS CT- B L5 spondylolysis with L5-S1 spondylolisthesis, T12/L1 chronic wedging Prior LS spine MRI non contrast- Heterogenous vertebral signals; L5-S1 DDD/ spondylolisthesis; L5-S1 foramenal stenosis R > L; epidural soft tissue density more prominent Prior LS spine MRI with maureen- Circumferential enhancement of epidural L4-5-S1 and L5-S1 facet tissues, paraspinal enhancement Symptomatic L5-S1 spondylolisthesis and stenosis complicated by epidural and paraspinal/facet infectious/inflammatory process Clinical R > L L5 radiculopathy Repeat MRI per Dr Rogel, though pt not a good candidate for surgical treatment for degenerative disease given age with associated medical conditions Reconsult Drs. Castro/Torrey Given improvement of CRP while on IV abx would be reluctant to stop short of completing the iv abx course
[2018-02-06] MEDS: traMADol HCL 50 MG TABLET PO PRN ×2 (08:18→20:31)
[2018-02-06 08:36] LABS: ANION GAP 9 (8-16); BLOOD UREA NITROGEN 9 mg/dL (7-18); CALCIUM 9.1 mg/dL (8.5-10.1); CHLORIDE 104 mmol/L (98-107); CO2 28 mmol/L (21-32); CREATININE 0.4 mg/dL (0.55-1.02); GLUCOSE,RANDOM 89 mg/dL (74-106); MAGNESIUM 1.6 mg/dL (1.8-2.4); PHOSPHOROUS 4.1 mg/dL (2.5-4.9); POTASSIUM 3.8 mmol/L (3.5-5.1); SODIUM 141 mmol/L (136-145)
[2018-02-06] MEDS ORDERED: PT OWN MED DRAWER 7, Y5N ONE ×2 (09:56→21:16)
[2018-02-06] MEDS ORDERED: GABAPENTIN 300 MG CAPSULE (FP) PO SCH (10:00)
[2018-02-06] MEDS: CYANOCOBALAMIN 1,000 MCG TABLET (FP) PO SCH (10:02)
[2018-02-06] MEDS: FERROUS SO4 325 MG TABLET (FP) PO SCH (10:02)
[2018-02-06] MEDS: PREGABALIN 75 MG CAPSULE PO SCH ×2 (10:02→22:06)
[2018-02-06] MEDS: ASCORBIC ACID 500 MG TABLET (FP) PO SCH (10:03)
[2018-02-06] MEDS: PANTOPRAZOLE 40 MG TABLET (FP) PO SCH (10:03)
[2018-02-06] MEDS: BUDESONIDE/FORMETEROL FUMARATE 80/4.5 mcg INHALER IH SCH ×2 (10:03→22:05)
[2018-02-06] MEDS: LOSARTAN POTASSIUM 50 MG TABLET (FP) PO SCH (10:03)
[2018-02-06] MEDS: SOLIFENACIN SUCCINATE 5 MG TAB (FP) PO SCH (10:04)
[2018-02-06] MEDS: LIDOCAINE 5% TOPICAL PATCH TP SCH (10:04)
--- NOTE | 2018-02-06 11:00 | PN ---
Progress Note, Physician History of Present Illness: Chart reviewed Alert awake In pain lower legs Still right more than left leg weakness ON tramadol and lyrica Seen by NS Not a surgical candidate Await the MRI - Current Medication List Current Medications: Active Medications Albuterol/Ipratropium (Duoneb -) 1 amp NEB RTID [facility] Last Admin: 02/06/18 07:20 Dose: 1 amp Apixaban (Eliquis -) 5 mg PO BID [facility] Last Admin: 02/06/18 10:03 Dose: 5 mg Ascorbic Acid (Vitamin C -) 500 mg PO DAILY [facility] Last Admin: 02/06/18 10:03 Dose: 500 mg Budesonide/Formoterol Fumarate (Symbicort 80/4.5mcg -) 2 puff IH BID [facility] Last Admin: 02/06/18 10:03 Dose: 2 puff Cyanocobalamin (Vitamin B12 -) 2,500 mcg PO DAILY [facility] Last Admin: 02/06/18 10:02 Dose: 2,500 mcg Docusate Sodium (Colace -) 100 mg PO HS [facility] Last Admin: 02/05/18 23:27 Dose: 100 mg Ferrous Sulfate (Feosol -) 325 mg PO DAILY [facility] Last Admin: 02/06/18 10:02 Dose: 325 mg IV Flush (Picc Line Flush) 8 ml IVPUSH PRN PRN PRN Reason: Protocol Vancomycin HCl 1,000 mg/ (Dextrose) 250 mls @ 166.667 mls/hr IVPB BID [facility] Cefepime HCl 2 gm/ Dextrose 100 mls @ 200 mls/hr IVPB BID [facility] Lactobacillus Acidophilus (Bacid -) 1 tab PO BID [facility] Last Admin: 02/06/18 10:03 Dose: 1 tab Levothyroxine Sodium (Synthroid -) 50 mcg PO DAILY@0700 [facility] Last Admin: 02/06/18 06:26 Dose: 50 mcg Lidocaine (Lidoderm Patch -) 1 patch TP DAILY [facility] Last Admin: 02/06/18 10:04 Dose: 1 patch Losartan Potassium (Cozaar -) 50 mg PO DAILY [facility] Last Admin: 02/06/18 10:03 Dose: 50 mg Metoprolol Succinate (Toprol Xl -) 50 mg PO DAILY [facility] Last Admin: 02/06/18 10:02 Dose: 50 mg Miscellaneous (Lidoderm Patch Removal) 1 each MC DAILY@2200 [facility] Last Admin: 02/05/18 23:30 Dose: 1 each Oxycodone HCl (Oxycontin -) 10 mg PO Q6HPO [facility] Last Admin: 02/06/18 06:26 Dose: 10 mg Pantoprazole Sodium (Protonix -) 40 mg PO DAILY [facility] Last Admin: 02/06/18 10:03 Dose: 40 mg Polyethylene Glycol (Miralax (For Daily Use) -) 17 gm PO BID [facility] Last Admin: 02/06/18 10:05 Dose: 17 gm Pramipexole Dihydrochloride (Mirapex -) 0.25 mg PO BID [facility] Last Admin: 02/06/18 10:03 Dose: 0.25 mg Pregabalin (Lyrica -) 75 mg PO BID [facility] Last Admin: 02/06/18 10:02 Dose: 75 mg Rosuvastatin Calcium (Crestor -) 10 mg PO [facility] Senna (Senna -) 2 tab PO HS [facility] Last Admin: 02/05/18 23:27 Dose: 2 tab Solifenacin (Vesicare -) 10 mg PO DAILY [facility] Last Admin: 02/06/18 10:04 Dose: 10 mg Tramadol HCl (Ultram -) 50 mg PO Q8H PRN PRN Reason: PAIN 4-6 Last Admin: 02/06/18 08:18 Dose: 50 mg - Objective Vital Signs: Vital Signs Temperature 98.3 F 02/06/18 06:00 Pulse Rate 73 02/06/18 06:00 Respiratory Rate 18 02/06/18 06:00 Blood Pressure 113/57 02/06/18 06:00 O2 Sat by Pulse Oximetry (%) 95 02/06/18 03:56 Constitutional: Yes: Well Nourished Eyes: Yes: WNL Neurological: Yes: Alert, Oriented ...Motor Strength: RLE (2/5) Labs: CBC, BMP 02/06/18 06:30 02/06/18 06:30 INR, PTT INR 1.47 (0.82-1.09) H 02/05/18 12:55 Problem List - Problems (1) Low back pain Assessment/Plan: 1. ID consult 2. MRI lS spine 3. PT 4. DVT prophylaxis 5. Percocet prn 6. Order EMG lower Code(s): M54.5 - LOW BACK PAIN
--- NOTE | 2018-02-06 12:59 | PN ---
Progress Note, Physician Chief Complaint: Ms Davies says the pain is better today but still present. No cp, sob, n/v - Current Medication List Current Medications: Active Medications Acetaminophen (Tylenol -) 325 mg PO Q6H PRN PRN Reason: PAIN LEVEL 6-10 Albuterol/Ipratropium (Duoneb -) 1 amp NEB RTID [facility] Last Admin: 02/06/18 07:20 Dose: 1 amp Apixaban (Eliquis -) 5 mg PO BID [facility] Last Admin: 02/06/18 10:03 Dose: 5 mg Ascorbic Acid (Vitamin C -) 500 mg PO DAILY [facility] Last Admin: 02/06/18 10:03 Dose: 500 mg Budesonide/Formoterol Fumarate (Symbicort 80/4.5mcg -) 2 puff IH BID [facility] Last Admin: 02/06/18 10:03 Dose: 2 puff Cyanocobalamin (Vitamin B12 -) 2,500 mcg PO DAILY [facility] Last Admin: 02/06/18 10:02 Dose: 2,500 mcg Docusate Sodium (Colace -) 100 mg PO HS [facility] Last Admin: 02/05/18 23:27 Dose: 100 mg Ferrous Sulfate (Feosol -) 325 mg PO DAILY [facility] Last Admin: 02/06/18 10:02 Dose: 325 mg IV Flush (Picc Line Flush) 8 ml IVPUSH PRN PRN PRN Reason: Protocol Vancomycin HCl 1,000 mg/ (Dextrose) 250 mls @ 166.667 mls/hr IVPB BID [facility] Cefepime HCl 2 gm/ Dextrose 100 mls @ 200 mls/hr IVPB BID [facility] Lactobacillus Acidophilus (Bacid -) 1 tab PO BID [facility] Last Admin: 02/06/18 10:03 Dose: 1 tab Levothyroxine Sodium (Synthroid -) 50 mcg PO DAILY@0700 [facility] Last Admin: 02/06/18 06:26 Dose: 50 mcg Lidocaine (Lidoderm Patch -) 1 patch TP DAILY [facility] Last Admin: 02/06/18 10:04 Dose: 1 patch Losartan Potassium (Cozaar -) 50 mg PO DAILY [facility] Last Admin: 02/06/18 10:03 Dose: 50 mg Metoprolol Succinate (Toprol Xl -) 50 mg PO DAILY [facility] Last Admin: 02/06/18 10:02 Dose: 50 mg Miscellaneous (Lidoderm Patch Removal) 1 each MC DAILY@2200 [facility] Last Admin: 02/05/18 23:30 Dose: 1 each Oxycodone HCl (Oxycontin -) 10 mg PO Q6HPO [facility] Last Admin: 02/06/18 12:26 Dose: 10 mg Oxycodone HCl (Roxicodone -) 5 mg PO Q6H PRN PRN Reason: PAIN LEVEL 6-10 Pantoprazole Sodium (Protonix -) 40 mg PO DAILY [facility] Last Admin: 02/06/18 10:03 Dose: 40 mg Polyethylene Glycol (Miralax (For Daily Use) -) 17 gm PO BID [facility] Last Admin: 02/06/18 10:05 Dose: 17 gm Pramipexole Dihydrochloride (Mirapex -) 0.25 mg PO BID [facility] Last Admin: 02/06/18 10:03 Dose: 0.25 mg Pregabalin (Lyrica -) 75 mg PO BID [facility] Last Admin: 02/06/18 10:02 Dose: 75 mg Rosuvastatin Calcium (Crestor -) 10 mg PO [facility] Senna (Senna -) 2 tab PO HS [facility] Last Admin: 02/05/18 23:27 Dose: 2 tab Solifenacin (Vesicare -) 10 mg PO DAILY [facility] Last Admin: 02/06/18 10:04 Dose: 10 mg Tramadol HCl (Ultram -) 50 mg PO Q8H PRN PRN Reason: PAIN 4-6 Last Admin: 02/06/18 08:18 Dose: 50 mg - Objective Vital Signs: Vital Signs Temperature 36.6 C 02/06/18 10:00 Pulse Rate 74 02/06/18 10:00 Respiratory Rate 19 02/06/18 11:00 Blood Pressure 126/65 02/06/18 10:00 O2 Sat by Pulse Oximetry (%) 96 02/06/18 11:00 Constitutional: Yes: No Distress, Calm, Obese Cardiovascular: Yes: Regular Rate and Rhythm. No: Gallop, Murmur, Rub Respiratory: Yes: Regular, CTA Bilaterally. No: Rales, Rhonchi, Wheezes Gastrointestinal: Yes: Normal Bowel Sounds, Soft. No: Distention, Tenderness Extremities: Yes: WNL Edema: No Labs: CBC, BMP 02/06/18 06:30 02/06/18 06:30 INR, PTT INR 1.47 (0.82-1.09) H 02/05/18 12:55 Problem List - Problems (1) Leg pain Assessment/Plan: -neurology and neurosurgery following -MRI performed, awaiting read -continue pain control -continue antibiotics per ID -PT consulted Code(s): M79.606 - PAIN IN LEG, UNSPECIFIED Qualifiers: Laterality: bilateral Qualified Code(s): M79.604 - Pain in right leg; M79.605 - Pain in left leg (2) CAD (coronary artery disease) Assessment/Plan: -quiescent -continue current regimen Code(s): I25.10 - ATHSCL HEART DISEASE OF [place] CORONARY ARTERY W/O ANG PCTRS (3) COPD (chronic obstructive pulmonary disease) Assessment/Plan: -continue duonebs -stable Code(s): J44.9 - CHRONIC OBSTRUCTIVE PULMONARY DISEASE, UNSPECIFIED (4) HLD (hyperlipidemia) Assessment/Plan: -continue statin Code(s): E78.5 - HYPERLIPIDEMIA, UNSPECIFIED (5) HTN (hypertension) Assessment/Plan: -continue toprol xl and losartan Code(s): I10 - ESSENTIAL (PRIMARY) HYPERTENSION Qualifiers: Hypertension type: essential hypertension Qualified Code(s): I10 - Essential (primary) hypertension (6) Hypothyroid Assessment/Plan: -continue synthroid Code(s): E03.9 - HYPOTHYROIDISM, UNSPECIFIED
[2018-02-06] MEDS ORDERED: MAGNESIUM SULFATE IN WATER 2 GM/50 ML IVPB IVPB ONE (14:00)
[2018-02-06] MEDS: ACETAMINOPHEN 325 MG TABLET (FP) PO PRN (14:11)
[2018-02-06] MEDS: oxyCODONE HCL 5 MG TABLET PO PRN (14:11)
--- NOTE | 2018-02-06 16:47 | PN ---
Progress Note (short form) - Note Progress Note: ID Consult dictated Continue empiric treatment for discitis with Vancomycin/ Cefepime
[2018-02-06] MEDS: VANCOMYCIN 1 GM PREMIX - 1 GM/200 ML BAG IVPB SCH (17:41)
--- NOTE | 2018-02-06 17:42 | CONS ---
DATE OF CONSULTATION: 02/06/2018 INFECTIOUS DISEASE CONSULTATION HISTORY OF PRESENT ILLNESS: The patient is a 78-year-old female with a history of chronic back pain evaluated for diskitis. Patient was recently hospitalized at [facility] for exacerbation of her low back pain. An MRI done at that time showed changes suggestive of diskitis at the level of L5-S1. A percutaneous needle biopsy was performed of a perifacet soft tissue; after a specimen was obtained for cultures, she was empirically started on vancomycin and cefepime. So she is presently day number 17. Routine culture and sensitivity as well as AFB and fungal cultures have been negative. There is significant improvement in her sedimentation rate and C-reactive protein. Patient continues to complain of back pain and was readmitted with increased numbness, lower extremity weakness, and inability to ambulate. She denies any fever or chills. Patient has been tolerating the IV antibiotics without adverse reaction. PAST MEDICAL HISTORY: Positive for osteoporosis, breast cancer, mitral valve prolapse, hypertension, hypothyroidism. PAST SURGICAL HISTORY: Status post left mastectomy, left total hip replacement, right total knee replacement, bladder sling. ALLERGIES: No known allergies. MEDICATION: Symbicort, Tylenol, Cozaar, vancomycin, cefepime, Eliquis, Lyrica, Bacid. SOCIAL HISTORY: She is presently residing in a detention facility for rehabilitation. Nonsmoker, nondrinker. SYSTEMS REVIEW: Neurologic: As per HPI. Cardiac: Negative chest pain or palpitations. Respiratory: Negative cough or sputum production. Gastrointestinal: Negative vomiting or diarrhea. Genitourinary: Negative for urinary tract infection. LABORATORY DATA: White count 75 (previously 101), C-reactive protein 4.2 (previously 27.3). PHYSICAL EXAMINATION: General: She is clinically ill appearing, supine in bed. Vital signs: Temperature 98.1, blood pressure 105/57, pulse 76 regular, respirations 20 per minute. HEENT: Sclerae anicteric. Cardiovascular: Heart sounds S1, S2. Respiratory: Lungs diminished breath sounds at the bases bilaterally. Abdomen: Soft. No tenderness elicited. Extremities: Positive for edema. IMPRESSION: 1. Diskitis. 2. Worsening lower extremity numbness and weakness. Patient will continue empiric vancomycin and cefepime to complete a 6-week course of treatment for suspected diskitis. A followup MRI has been ordered. Neurology and neurosurgical followups. Thank you for the kind referral. MARIA C DELCID M.D. MARIA [id number]
[2018-02-06] MEDS: VANCOMYCIN 1,000 MG in DEXTROSE 5%-WATER - 250 ML IVPB SCH ×2 (18:16→18:17)
[2018-02-06] MEDS: CEFEPIME 2 GM in DEXTROSE 5%-WATER 100 ML IVPB SCH ×2 (18:16→22:06)
[2018-02-06] MEDS: DOCUSATE SODIUM 100 MG CAPSULE (FP) PO SCH (22:03)
[2018-02-06] MEDS: ROSUVASTATIN CA 10 MG TABLET (FP) PO SCH (22:06)
[2018-02-06] MEDS: SENNOSIDES 8.6MG TABLET (FP) PO SCH (22:06)
[2018-02-06] MEDS: LIDOCAINE PATCH REMOVAL MC SCH (22:07)
[2018-02-07] MEDS: oxyCODONE HCL 10 MG SUSTAINED ACTING TABLET PO SCH ×5 (00:46→22:59)
[2018-02-07] MEDS: LEVOTHYROXINE NA 50 MCG TABLET (FP) PO SCH (06:20)
[2018-02-07] MEDS: VANCOMYCIN 1 GM PREMIX - 1 GM/200 ML BAG IVPB SCH ×2 (06:21→17:55)
[2018-02-07] MEDS: ALBUTEROL SO4 2.5/IPRATROPIUM 0.5 INH SOL 3 ML VIAL.NEB. NEB SCH ×3 (07:20→21:09)
[2018-02-07 08:09] LABS: BASO % 0.4 % (0-2.0); EOS % 3.3 % (0-4.5); HEMATOCRIT 28.3 % (32.4-45.2); HEMOGLOBIN 9.5 GM/dL (10.7-15.3); LYMPH % 31.2 % (8-40); MCH 28.9 pg (25.7-33.7); MCHC 33.6 g/dl (32.0-36.0); MEAN PLT VOLUME 7.5 fl (7.5-11.1); MONO % 10.1 % (3.8-10.2); PLATELET COUNT 203 K/MM3 (134-434); RBC 3.29 M/mm3 (3.60-5.2); WHITE BLOOD COUNT 4.8 K/mm3 (4.0-10.0)
[2018-02-07 08:27] LABS: ANION GAP 7 (8-16); BLOOD UREA NITROGEN 8 mg/dL (7-18); CHLORIDE 102 mmol/L (98-107); CO2 30 mmol/L (21-32); CREATININE 0.6 mg/dL (0.55-1.02); GLUCOSE,RANDOM 110 mg/dL (74-106); MAGNESIUM 1.6 mg/dL (1.8-2.4); PHOSPHOROUS 4.3 mg/dL (2.5-4.9); SODIUM 139 mmol/L (136-145)
[2018-02-07 09:45] LABS: CALCIUM 9.3 mg/dL (8.5-10.1)
[2018-02-07] MEDS: CEFEPIME 2 GM in DEXTROSE 5%-WATER 100 ML IVPB SCH ×2 (09:57→21:34)
[2018-02-07] MEDS: PRAMIPEXOLE DIHYDROCHLORIDE 0.25 MG TABLET PO SCH ×2 (09:57→21:35)
[2018-02-07] MEDS: APIXABAN 5 MG TABLET PO SCH ×2 (09:58→21:35)
[2018-02-07] MEDS: LIDOCAINE 5% TOPICAL PATCH TP SCH (09:58)
[2018-02-07] MEDS: oxyCODONE HCL 5 MG TABLET PO PRN ×2 (09:58→17:15)
[2018-02-07] MEDS: ACETAMINOPHEN 325 MG TABLET (FP) PO PRN ×2 (09:58→17:15)
[2018-02-07] MEDS: ASCORBIC ACID 500 MG TABLET (FP) PO SCH (10:00)
[2018-02-07] MEDS: PANTOPRAZOLE 40 MG TABLET (FP) PO SCH (10:00)
[2018-02-07] MEDS: LACTOBACILLUS ACIDOPHILUS 1 TABLET PO SCH ×2 (10:00→21:35)
[2018-02-07] MEDS: LOSARTAN POTASSIUM 50 MG TABLET (FP) PO SCH (10:00)
[2018-02-07] MEDS: SOLIFENACIN SUCCINATE 5 MG TAB (FP) PO SCH (10:00)
[2018-02-07] MEDS: PREGABALIN 75 MG CAPSULE PO SCH ×2 (10:00→21:35)
[2018-02-07] MEDS: CYANOCOBALAMIN 1,000 MCG TABLET (FP) PO SCH (10:00)
[2018-02-07] MEDS: FERROUS SO4 325 MG TABLET (FP) PO SCH (10:00)
[2018-02-07] MEDS: BUDESONIDE/FORMETEROL FUMARATE 80/4.5 mcg INHALER IH SCH ×2 (10:01→21:36)
--- NOTE | 2018-02-07 10:05 | PN ---
Progress Note (short form) - Note Progress Note: NEUROSURGERY On Vanco and Cefepime x 2 1/2 weeks. Had L > R leg weakness previously, now c/ o R > L leg weakness. Denies fever or chill. PMH: HTN, CAD, COPD, Afib on AC, hypercholesterolemia, hypothyroidism PE: Tmax 98.9, AF, VSS HEENT- NC, AT; Neck- supple; Cor- RR; Lungs- CTA; Abd- obese, benign; Ext- no sign of DVT CN- intact II-XII; Motor- 4+-5/5 throughout except R DF 4 and L DF 4+; Sensation - decreased RL L4-5-S1 to LT; DTR- hyporeflexic B WBC 6.8 last admission now 4.8; ESR 101 prior admission now 75; CRP 27.3 prior admission now 4.2 Prior Urine Cx- E Coli New LS spine MRI - Increased L5 and S1 vertebral edema; anterior epidural soft tissue c/w phlegmon (not drainable) and stenosis L5-1/L4-5; decreased anterior vertebral edema Symptomatic L5-S1 spondylolisthesis and stenosis complicated by epidural and paraspinal/facet infectious/inflammatory process Neurosurgical intervention not recommended given MRI appearance of phlegmon and pt medical conditions Clinical R > L L5 radiculopathy ID input noted and concur with assessment Given improvement of CRP/ESR and MRI confirmation of osteomyelitis while on IV abx would complete iv abx course Residual symptoms to be expected because of current infection and pre-existing spondylolisthesis/stenosis/radiculopathy Pt understands the above
[2018-02-07] MEDS: POLYETHYLENE GLYCOL 3350 119 GM BTL PO SCH ×2 (10:09→21:36)
--- NOTE | 2018-02-07 10:54 | PN ---
Progress Note, Physician Chief Complaint: Patient still c/o back pain and LE weakness, no bowel bladder incontinence - Current Medication List Current Medications: Active Medications Acetaminophen (Tylenol -) 325 mg PO Q6H PRN PRN Reason: PAIN LEVEL 6-10 Last Admin: 02/07/18 09:58 Dose: 325 mg Albuterol/Ipratropium (Duoneb -) 1 amp NEB RTID [facility] Last Admin: 02/07/18 07:20 Dose: 1 amp Apixaban (Eliquis -) 5 mg PO BID [facility] Last Admin: 02/07/18 09:58 Dose: 5 mg Ascorbic Acid (Vitamin C -) 500 mg PO DAILY [facility] Last Admin: 02/07/18 10:00 Dose: 500 mg Budesonide/Formoterol Fumarate (Symbicort 80/4.5mcg -) 2 puff IH BID [facility] Last Admin: 02/07/18 10:01 Dose: 2 puff Cyanocobalamin (Vitamin B12 -) 2,500 mcg PO DAILY [facility] Last Admin: 02/07/18 10:00 Dose: 2,500 mcg Docusate Sodium (Colace -) 100 mg PO HS [facility] Last Admin: 02/06/18 22:03 Dose: Not Given Ferrous Sulfate (Feosol -) 325 mg PO DAILY [facility] Last Admin: 02/07/18 10:00 Dose: 325 mg IV Flush (Picc Line Flush) 8 ml IVPUSH PRN PRN PRN Reason: Protocol Vancomycin HCl (Vancomycin 1 Gm Premix -) 1 gm in 200 mls @ 133.333 mls/hr IVPB Q12H [facility]; Protocol Last Admin: 02/07/18 06:21 Dose: 133.333 mls/hr Cefepime HCl 2 gm/ Dextrose 100 mls @ 100 mls/hr IVPB BID [facility]; Protocol Last Admin: 02/07/18 09:57 Dose: 100 mls/hr Lactobacillus Acidophilus (Bacid -) 1 tab PO BID [facility] Last Admin: 02/07/18 10:00 Dose: 1 tab Levothyroxine Sodium (Synthroid -) 50 mcg PO DAILY@0700 [facility] Last Admin: 02/07/18 06:20 Dose: 50 mcg Lidocaine (Lidoderm Patch -) 1 patch TP DAILY [facility] Last Admin: 02/07/18 09:58 Dose: 1 patch Losartan Potassium (Cozaar -) 50 mg PO DAILY [facility] Last Admin: 02/07/18 10:00 Dose: 50 mg Metoprolol Succinate (Toprol Xl -) 50 mg PO DAILY [facility] Last Admin: 02/07/18 10:00 Dose: 50 mg Miscellaneous (Lidoderm Patch Removal) 1 each MC DAILY@2200 [facility] Last Admin: 02/06/18 22:07 Dose: 1 each Oxycodone HCl (Oxycontin -) 10 mg PO Q6HPO [facility] Last Admin: 02/07/18 06:20 Dose: 10 mg Oxycodone HCl (Roxicodone -) 5 mg PO Q6H PRN PRN Reason: PAIN LEVEL 6-10 Last Admin: 02/07/18 09:58 Dose: 5 mg Pantoprazole Sodium (Protonix -) 40 mg PO DAILY [facility] Last Admin: 02/07/18 10:00 Dose: 40 mg Polyethylene Glycol (Miralax (For Daily Use) -) 17 gm PO BID [facility] Last Admin: 02/07/18 10:09 Dose: 17 gm Pramipexole Dihydrochloride (Mirapex -) 0.25 mg PO BID [facility] Last Admin: 02/07/18 09:57 Dose: 0.25 mg Pregabalin (Lyrica -) 75 mg PO BID [facility] Last Admin: 02/07/18 10:00 Dose: 75 mg Rosuvastatin Calcium (Crestor -) 10 mg PO HS [facility] Last Admin: 02/06/18 22:06 Dose: 10 mg Senna (Senna -) 2 tab PO [facility] Last Admin: 02/06/18 22:06 Dose: Not Given Solifenacin (Vesicare -) 10 mg PO DAILY [facility] Last Admin: 02/07/18 10:00 Dose: 10 mg Tramadol HCl (Ultram -) 50 mg PO Q8H PRN PRN Reason: PAIN 4-6 Last Admin: 02/06/18 20:31 Dose: 50 mg - Objective Vital Signs: Vital Signs Temperature 98.8 F 02/07/18 06:00 Pulse Rate 115 H 02/07/18 06:00 Respiratory Rate 18 02/07/18 07:00 Blood Pressure 114/64 02/07/18 06:00 O2 Sat by Pulse Oximetry (%) 98 02/07/18 07:00 Elderly F very dsad and tearful due to worsening pain HEENT: Mm moist, no anemia, PERRLA EOMI NECK; No JVD No Bruit CHEST: CTA B/L CVS; S1S2 R no m/g/r ABD: No distention non tender EXT: spinal tenderness +, NTrace janina afeet 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 Code(s): M54.9 - DORSALGIA, UNSPECIFIED Qualifiers: Back pain location: low back pain Chronicity: unspecified Back pain laterality: bilateral Sciatica presence: with sciatica Sciatica laterality: sciatica of right side Qualified Code(s): M54.41 - Lumbago with sciatica, right side (2) CAD (coronary artery disease) Assessment/Plan: No active issue cont all home meds Code(s): I25.10 - ATHSCL HEART DISEASE OF [place] CORONARY ARTERY W/O ANG PCTRS (3) HTN (hypertension) Assessment/Plan: Well controlled cont all home meds Code(s): I10 - ESSENTIAL (PRIMARY) HYPERTENSION Qualifiers: Hypertension type: essential hypertension Qualified Code(s): I10 - Essential (primary) hypertension (4) HLD (hyperlipidemia) Assessment/Plan: Cont Statin therapy Code(s): E78.5 - HYPERLIPIDEMIA, UNSPECIFIED (5) Hypothyroid Assessment/Plan: LDL 1.7 cont current dose of Levothyroxine Code(s): E03.9 - HYPOTHYROIDISM, UNSPECIFIED (6) Afib Assessment/Plan: Rate controlled on AC Code(s): I48.91 - UNSPECIFIED ATRIAL FIBRILLATION Qualifiers: Atrial fibrillation type: chronic Qualified Code(s): I48.2 - Chronic atrial fibrillation (7) COPD (chronic obstructive pulmonary disease) Assessment/Plan: Stable cont current meds add incentive spectrometry. Code(s): J44.9 - CHRONIC OBSTRUCTIVE PULMONARY DISEASE, UNSPECIFIED (8) Discitis of lumbosacral region Assessment/Plan: Empiric Vancomycin and Cefepime , rpt MRI spine conforms OM ESR and CRP is trending normal, evaluated by ID, Neurosurgery and Neurologist , non surgical management. Code(s): M46.47 - DISCITIS, UNSPECIFIED, LUMBOSACRAL REGION
[2018-02-07] MEDS: ESCITALOPRAM OXALATE 10 MG TABLET (FP) PO SCH (12:37)
[2018-02-07] MEDS ORDERED: PT OWN MED DRAWER 7, Y5N ONE ×3 (16:53→21:19)
[2018-02-07] MEDS: ROSUVASTATIN CA 10 MG TABLET (FP) PO SCH (21:35)
[2018-02-07] MEDS: SENNOSIDES 8.6MG TABLET (FP) PO SCH (21:36)
[2018-02-07] MEDS: DOCUSATE SODIUM 100 MG CAPSULE (FP) PO SCH (21:36)
[2018-02-07] MEDS: LIDOCAINE PATCH REMOVAL MC SCH (21:36)
[2018-02-08] MEDS: ACETAMINOPHEN 325 MG TABLET (FP) PO PRN (04:28)
[2018-02-08] MEDS: oxyCODONE HCL 5 MG TABLET PO PRN ×2 (04:29→21:09)
[2018-02-08] MEDS: VANCOMYCIN 1 GM PREMIX - 1 GM/200 ML BAG IVPB SCH ×2 (05:47→17:39)
[2018-02-08] MEDS: LEVOTHYROXINE NA 50 MCG TABLET (FP) PO SCH (06:08)
[2018-02-08] MEDS: oxyCODONE HCL 10 MG SUSTAINED ACTING TABLET PO SCH ×2 (06:08→12:05)
[2018-02-08] MEDS: ALBUTEROL SO4 2.5/IPRATROPIUM 0.5 INH SOL 3 ML VIAL.NEB. NEB SCH ×3 (07:30→20:24)
[2018-02-08 07:41] LABS: BASO % 0.4 % (0-2.0); EOS % 3.1 % (0-4.5); HEMATOCRIT 28.6 % (32.4-45.2); HEMOGLOBIN 9.7 GM/dL (10.7-15.3); LYMPH % 19.9 % (8-40); MCH 28.9 pg (25.7-33.7); MCHC 33.8 g/dl (32.0-36.0); MEAN CELL VOLUME 85.6 fl (80-96); MEAN PLT VOLUME 7.4 fl (7.5-11.1); MONO % 10.2 % (3.8-10.2); NEUT % 66.4 % (42.8-82.8); PLATELET COUNT 214 K/MM3 (134-434); RBC 3.34 M/mm3 (3.60-5.2); RDW 14.5 % (11.6-15.6); WHITE BLOOD COUNT 5.7 K/mm3 (4.0-10.0)
[2018-02-08 07:57] LABS: INR 1.88 (0.82-1.09); PROTHROMBIN TIME (PATIENT) 21.2 SEC (9.7-13.0)
[2018-02-08 08:05] LABS: ANION GAP 6 (8-16); BLOOD UREA NITROGEN 7 mg/dL (7-18); CALCIUM 9.5 mg/dL (8.5-10.1); CHLORIDE 102 mmol/L (98-107); CO2 30 mmol/L (21-32); CREATININE 0.6 mg/dL (0.55-1.02); GLUCOSE,RANDOM 104 mg/dL (74-106); POTASSIUM 3.9 mmol/L (3.5-5.1); SODIUM 138 mmol/L (136-145)
[2018-02-08] MEDS ORDERED: PT OWN MED DRAWER 7, Y5N ONE ×2 (10:10→17:01)
[2018-02-08] MEDS: POLYETHYLENE GLYCOL 3350 119 GM BTL PO SCH ×2 (10:18→21:11)
[2018-02-08] MEDS: LACTOBACILLUS ACIDOPHILUS 1 TABLET PO SCH ×2 (10:18→21:08)
[2018-02-08] MEDS: PICC LINE 8 ML FLUSH PROTOCOL IVPUSH PRN (10:18)
[2018-02-08] MEDS: SOLIFENACIN SUCCINATE 5 MG TAB (FP) PO SCH (10:18)
[2018-02-08] MEDS: LOSARTAN POTASSIUM 50 MG TABLET (FP) PO SCH (10:18)
[2018-02-08] MEDS: CYANOCOBALAMIN 1,000 MCG TABLET (FP) PO SCH (10:19)
[2018-02-08] MEDS: LIDOCAINE 5% TOPICAL PATCH TP SCH (10:19)
[2018-02-08] MEDS: FERROUS SO4 325 MG TABLET (FP) PO SCH (10:19)
[2018-02-08] MEDS: traMADol HCL 50 MG TABLET PO PRN (10:20)
[2018-02-08] MEDS: PRAMIPEXOLE DIHYDROCHLORIDE 0.25 MG TABLET PO SCH ×2 (10:20→21:09)
[2018-02-08] MEDS: ASCORBIC ACID 500 MG TABLET (FP) PO SCH (10:20)
[2018-02-08] MEDS: PANTOPRAZOLE 40 MG TABLET (FP) PO SCH (10:20)
[2018-02-08] MEDS: ESCITALOPRAM OXALATE 10 MG TABLET (FP) PO SCH (10:20)
[2018-02-08] MEDS: APIXABAN 5 MG TABLET PO SCH ×2 (10:20→21:09)
[2018-02-08] MEDS: PREGABALIN 75 MG CAPSULE PO SCH ×2 (10:21→21:09)
[2018-02-08] MEDS: BUDESONIDE/FORMETEROL FUMARATE 80/4.5 mcg INHALER IH SCH ×2 (10:21→21:07)
[2018-02-08] MEDS: CEFEPIME 2 GM in DEXTROSE 5%-WATER 100 ML IVPB SCH ×2 (10:21→21:07)
--- NOTE | 2018-02-08 11:17 | PN ---
Progress Note, Physician History of Present Illness: Events noted Chart reviewed Seen in bed Alert awak e Looks better today Complaints of right shoulder pain Reviewed the images of the MRI LS spine with positive OM No evidence of epidural On IV ABx Seen by ID and NS - Current Medication List Current Medications: Active Medications Acetaminophen (Tylenol -) 325 mg PO Q6H PRN PRN Reason: PAIN LEVEL 6-10 Last Admin: 02/08/18 04:28 Dose: 325 mg Albuterol/Ipratropium (Duoneb -) 1 amp NEB RTID [facility] Last Admin: 02/08/18 07:30 Dose: 1 amp Apixaban (Eliquis -) 5 mg PO BID [facility] Last Admin: 02/08/18 10:20 Dose: 5 mg Ascorbic Acid (Vitamin C -) 500 mg PO DAILY [facility] Last Admin: 02/08/18 10:20 Dose: 500 mg Budesonide/Formoterol Fumarate (Symbicort 80/4.5mcg -) 2 puff IH BID [facility] Last Admin: 02/08/18 10:21 Dose: 2 puff Cyanocobalamin (Vitamin B12 -) 2,500 mcg PO DAILY [facility] Last Admin: 02/08/18 10:19 Dose: 2,500 mcg Docusate Sodium (Colace -) 100 mg PO HS [facility] Last Admin: 02/07/18 21:36 Dose: Not Given Escitalopram Oxalate (Lexapro -) 10 mg PO DAILY [facility] Last Admin: 02/08/18 10:20 Dose: 10 mg Ferrous Sulfate (Feosol -) 325 mg PO DAILY [facility] Last Admin: 02/08/18 10:19 Dose: 325 mg IV Flush (Picc Line Flush) 8 ml IVPUSH PRN PRN PRN Reason: Protocol Last Admin: 02/08/18 10:18 Dose: 8 ml Vancomycin HCl (Vancomycin 1 Gm Premix -) 1 gm in 200 mls @ 133.333 mls/hr IVPB Q12H [facility]; Protocol Last Admin: 02/08/18 05:47 Dose: 133.333 mls/hr Cefepime HCl 2 gm/ Dextrose 100 mls @ 100 mls/hr IVPB BID [facility]; Protocol Last Admin: 02/08/18 10:21 Dose: 100 mls/hr Lactobacillus Acidophilus (Bacid -) 1 tab PO BID [facility] Last Admin: 02/08/18 10:18 Dose: 1 tab Levothyroxine Sodium (Synthroid -) 50 mcg PO DAILY@0700 [facility] Last Admin: 02/08/18 06:08 Dose: 50 mcg Lidocaine (Lidoderm Patch -) 1 patch TP DAILY [facility] Last Admin: 02/08/18 10:19 Dose: 1 patch Losartan Potassium (Cozaar -) 50 mg PO DAILY [facility] Last Admin: 02/08/18 10:18 Dose: 50 mg Metoprolol Succinate (Toprol Xl -) 50 mg PO DAILY [facility] Last Admin: 02/08/18 10:20 Dose: 50 mg Miscellaneous (Lidoderm Patch Removal) 1 each MC DAILY@2200 [facility] Last Admin: 02/07/18 21:36 Dose: 1 each Oxycodone HCl (Oxycontin -) 10 mg PO Q6HPO [facility] Last Admin: 02/08/18 06:08 Dose: 10 mg Oxycodone HCl (Roxicodone -) 5 mg PO Q6H PRN PRN Reason: PAIN LEVEL 6-10 Last Admin: 02/08/18 04:29 Dose: 5 mg Pantoprazole Sodium (Protonix -) 40 mg PO DAILY [facility] Last Admin: 02/08/18 10:20 Dose: 40 mg Polyethylene Glycol (Miralax (For Daily Use) -) 17 gm PO BID [facility] Last Admin: 02/08/18 10:18 Dose: 17 gm Pramipexole Dihydrochloride (Mirapex -) 0.25 mg PO BID [facility] Last Admin: 02/08/18 10:20 Dose: 0.25 mg Pregabalin (Lyrica -) 75 mg PO BID [facility] Last Admin: 02/08/18 10:21 Dose: 75 mg Rosuvastatin Calcium (Crestor -) 10 mg PO [facility] Last Admin: 02/07/18 21:35 Dose: 10 mg Senna (Senna -) 2 tab PO [facility] Last Admin: 02/07/18 21:36 Dose: Not Given Solifenacin (Vesicare -) 10 mg PO DAILY [facility] Last Admin: 02/08/18 10:18 Dose: 10 mg - Objective Vital Signs: Vital Signs Temperature 98.2 F 02/08/18 10:00 Pulse Rate 83 02/08/18 10:00 Respiratory Rate 18 02/08/18 10:00 Blood Pressure 119/60 02/08/18 10:00 O2 Sat by Pulse Oximetry (%) 97 02/08/18 06:43 Constitutional: Yes: Well Nourished Eyes: Yes: WNL Neurological: Yes: Alert, Oriented, Babinski negative ...Motor Strength: RLE (3/) Labs: CBC, BMP 02/08/18 06:45 02/08/18 06:45 INR, PTT INR 1.88 (0.82-1.09) H 02/08/18 06:45 Problem List - Problems (1) Low back pain Assessment/Plan: Acute Osteomyletis L Radiculopathy DJD ?? soft tissue in LS region 1. PT 2. Patient right leg is better which will make me lean more towards conservative treatment and no surgical intervention 3. Adjust pain meds 4. DVT prophylaxis 5. Lyrica 6. Lidoderm patch Code(s): M54.5 - LOW BACK PAIN
--- NOTE | 2018-02-08 12:13 | PN ---
Progress Note, Physician Chief Complaint: Today better mood, still c/o back pain and LE weakness, no bowell bladder incontinence - Current Medication List Current Medications: Active Medications Albuterol/Ipratropium (Duoneb -) 1 amp NEB RTID [facility] Last Admin: 02/08/18 07:30 Dose: 1 amp Apixaban (Eliquis -) 5 mg PO BID [facility] Last Admin: 02/08/18 10:20 Dose: 5 mg Ascorbic Acid (Vitamin C -) 500 mg PO DAILY [facility] Last Admin: 02/08/18 10:20 Dose: 500 mg Budesonide/Formoterol Fumarate (Symbicort 80/4.5mcg -) 2 puff IH BID [facility] Last Admin: 02/08/18 10:21 Dose: 2 puff Cyanocobalamin (Vitamin B12 -) 2,500 mcg PO DAILY [facility] Last Admin: 02/08/18 10:19 Dose: 2,500 mcg Docusate Sodium (Colace -) 100 mg PO HS [facility] Last Admin: 02/07/18 21:36 Dose: Not Given Escitalopram Oxalate (Lexapro -) 10 mg PO DAILY [facility] Last Admin: 02/08/18 10:20 Dose: 10 mg Ferrous Sulfate (Feosol -) 325 mg PO DAILY [facility] Last Admin: 02/08/18 10:19 Dose: 325 mg IV Flush (Picc Line Flush) 8 ml IVPUSH PRN PRN PRN Reason: Protocol Last Admin: 02/08/18 10:18 Dose: 8 ml Vancomycin HCl (Vancomycin 1 Gm Premix -) 1 gm in 200 mls @ 133.333 mls/hr IVPB Q12H [facility]; Protocol Last Admin: 02/08/18 05:47 Dose: 133.333 mls/hr Cefepime HCl 2 gm/ Dextrose 100 mls @ 100 mls/hr IVPB BID [facility]; Protocol Last Admin: 02/08/18 10:21 Dose: 100 mls/hr Lactobacillus Acidophilus (Bacid -) 1 tab PO BID [facility] Last Admin: 02/08/18 10:18 Dose: 1 tab Levothyroxine Sodium (Synthroid -) 50 mcg PO DAILY@0700 [facility] Last Admin: 02/08/18 06:08 Dose: 50 mcg Lidocaine (Lidoderm Patch -) 1 patch TP DAILY [facility] Last Admin: 06/03/18 10:19 Dose: 1 patch Losartan Potassium (Cozaar -) 50 mg PO DAILY [facility] Last Admin: 02/08/18 10:18 Dose: 50 mg Metoprolol Succinate (Toprol Xl -) 50 mg PO DAILY [facility] Last Admin: 02/08/18 10:20 Dose: 50 mg Miscellaneous (Lidoderm Patch Removal) 1 each MC DAILY@2200 [facility] Last Admin: 02/07/18 21:36 Dose: 1 each Oxycodone HCl (Oxycontin -) 10 mg PO Q6HPO [facility] Last Admin: 02/08/18 12:05 Dose: 10 mg Pantoprazole Sodium (Protonix -) 40 mg PO DAILY [facility] Last Admin: 02/08/18 10:20 Dose: 40 mg Polyethylene Glycol (Miralax (For Daily Use) -) 17 gm PO BID [facility] Last Admin: 02/08/18 10:18 Dose: 17 gm Pramipexole Dihydrochloride (Mirapex -) 0.25 mg PO BID [facility] Last Admin: 02/08/18 10:20 Dose: 0.25 mg Pregabalin (Lyrica -) 150 mg PO BID [facility] Rosuvastatin Calcium (Crestor -) 10 mg PO HS [facility] Last Admin: 02/07/18 21:35 Dose: 10 mg Senna (Senna -) 2 tab PO [facility] Last Admin: 02/07/18 21:36 Dose: Not Given Solifenacin (Vesicare -) 10 mg PO DAILY [facility] Last Admin: 02/08/18 10:18 Dose: 10 mg - Objective Vital Signs: Vital Signs Temperature 98.2 F 02/08/18 10:00 Pulse Rate 83 02/08/18 10:00 Respiratory Rate 18 02/08/18 10:00 Blood Pressure 119/60 02/08/18 10:00 O2 Sat by Pulse Oximetry (%) 97 02/08/18 06:43 Elderly F c/o back pain and LE numbness HEENT: Mm moist, no anemia, PERRLA EOMI NECK; No JVD No Bruit CHEST: CTA B/L CVS; S1S2 R no m/g/r ABD: No distention non tender EXT: spinal tenderness +, Trace 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 Code(s): M54.9 - DORSALGIA, UNSPECIFIED Qualifiers: Back pain location: low back pain Chronicity: unspecified Back pain laterality: bilateral Sciatica presence: with sciatica Sciatica laterality: sciatica of right side Qualified Code(s): M54.41 - Lumbago with sciatica, right side (2) CAD (coronary artery disease) Assessment/Plan: No active issue cont all home meds Code(s): I25.10 - ATHSCL HEART DISEASE OF [place] CORONARY ARTERY W/O ANG PCTRS (3) HTN (hypertension) Assessment/Plan: Well controlled cont all home meds Code(s): I10 - ESSENTIAL (PRIMARY) HYPERTENSION Qualifiers: Hypertension type: essential hypertension Qualified Code(s): I10 - Essential (primary) hypertension (4) HLD (hyperlipidemia) Assessment/Plan: Cont Statin therapy Code(s): E78.5 - HYPERLIPIDEMIA, UNSPECIFIED (5) Hypothyroid Assessment/Plan: LDL 1.7 cont current dose of Levothyroxine Code(s): E03.9 - HYPOTHYROIDISM, UNSPECIFIED (6) Afib Assessment/Plan: Rate controlled on AC Code(s): I48.91 - UNSPECIFIED ATRIAL FIBRILLATION Qualifiers: Atrial fibrillation type: chronic Qualified Code(s): I48.2 - Chronic atrial fibrillation (7) COPD (chronic obstructive pulmonary disease) Assessment/Plan: Stable cont current meds add incentive spectrometry. Code(s): J44.9 - CHRONIC OBSTRUCTIVE PULMONARY DISEASE, UNSPECIFIED (8) Discitis of lumbosacral region Assessment/Plan: Empiric Vancomycin and Cefepime , rpt MRI spine conforms OM ESR and CRP is trending normal, evaluated by ID, Neurosurgery and Neurologist , non surgical management. Code(s): M46.47 - DISCITIS, UNSPECIFIED, LUMBOSACRAL REGION
[2018-02-08] MEDS: ROSUVASTATIN CA 10 MG TABLET (FP) PO SCH (21:09)
[2018-02-08] MEDS: LIDOCAINE PATCH REMOVAL MC SCH (21:11)
[2018-02-08] MEDS: DOCUSATE SODIUM 100 MG CAPSULE (FP) PO SCH (21:11)
[2018-02-08] MEDS: SENNOSIDES 8.6MG TABLET (FP) PO SCH (21:12)
[2018-02-09] MEDS: VANCOMYCIN 1 GM PREMIX - 1 GM/200 ML BAG IVPB SCH ×2 (06:03→19:29)
[2018-02-09] MEDS: LEVOTHYROXINE NA 50 MCG TABLET (FP) PO SCH (06:46)
[2018-02-09] MEDS: oxyCODONE HCL 5 MG TABLET PO PRN ×2 (06:46→17:17)
[2018-02-09] MEDS: ALBUTEROL SO4 2.5/IPRATROPIUM 0.5 INH SOL 3 ML VIAL.NEB. NEB SCH ×3 (07:20→21:10)
[2018-02-09 08:12] LABS: BASO % 0.5 % (0-2.0); EOS % 2.7 % (0-4.5); HEMATOCRIT 27.5 % (32.4-45.2); HEMOGLOBIN 9.2 GM/dL (10.7-15.3); LYMPH % 21.6 % (8-40); MCH 28.8 pg (25.7-33.7); MCHC 33.5 g/dl (32.0-36.0); MEAN PLT VOLUME 7.7 fl (7.5-11.1); MONO % 11.1 % (3.8-10.2); NEUT % 64.1 % (42.8-82.8); PLATELET COUNT 216 K/MM3 (134-434); RBC 3.19 M/mm3 (3.60-5.2); RDW 14.3 % (11.6-15.6); WHITE BLOOD COUNT 4.5 K/mm3 (4.0-10.0)
[2018-02-09 08:24] LABS: ANION GAP 4 (8-16); BLOOD UREA NITROGEN 10 mg/dL (7-18); CALCIUM 9.3 mg/dL (8.5-10.1); CHLORIDE 100 mmol/L (98-107); CO2 32 mmol/L (21-32); CREATININE 0.7 mg/dL (0.55-1.02); GLUCOSE,RANDOM 124 mg/dL (74-106); POTASSIUM 4.2 mmol/L (3.5-5.1); SODIUM 136 mmol/L (136-145)
--- NOTE | 2018-02-09 09:15 | PN ---
Progress Note (short form) - Note Progress Note: Patient seen and examined. Chart reviewed at length. Patient well known to me from outpatient care and previous admissions. Re-admitted from SNF/Rehab due to persistence of lower extremity pain, numbness and weakness limiting ability to ambulate and function independently. Currently sitting up in bed, alert responsive and despondent over the persistence of her symptoms. Labs, radiologic procedures and physician notes reviewed. PT note reviewed. Only able to perform Supine>>Sit with assistance Medication list reviewed. To continue planned long-term antibiotic therapy for spinal osteomyelitis Continue attempts at physical therapy. Selected Entries 02/09/18 02/09/18 05:55 06:00 Temperature 98.2 F Pulse Rate 79 Respiratory 20 Rate Blood Pressure 95/55 O2 Sat by Pulse 98 Oximetry (%) Oxygen Delivery Room Air Method Laboratory Tests 02/05/18 02/07/18 02/09/18 13:30 07:00 07:30 WBC 4.5 Hgb 9.2 L MCV 86.0 Plt Count 216 Sodium Potassium Chloride Carbon Dioxide BUN Creatinine Random Glucose Calcium Magnesium 1.6 L Albumin 2.6 L 02/09/18 07:30 WBC Hgb MCV Plt Count Sodium 136 Potassium 4.2 Chloride 100 Carbon Dioxide 32 BUN 10 Creatinine 0.7 Random Glucose 124 H Calcium 9.3 Magnesium Albumin Chest Dry rales at bases Cor RRR Abd Soft nontender No new mass Ext No evidence of phlebitis No pitting edema Neuro No new focal deficit Bilateral LE weakness and subjective pain Assessment and Plan Low back pain with bilateral LE pain, numbness and weakness likely related to spinal osteomyelitis On iv antibiotic therapy Osteomyelitis As above Anemia Hb 9.2 Will follow Likely effect of acute/chronic disease Hypoalbuminemia Multifactorial Effects of chronic inflammatory disease as well as nutritional factors ASHD Stable HTN Stable HPL Stable Hypothyroid Stable Monitor TSH Hypomagnesemia 1.6 Replete COPD Stable H/O Breast cancer Stable H/O L THR B/L TKR Full extensive problem lists as per old charts and notes Continue current Rx
[2018-02-09] MEDS ORDERED: PT OWN MED DRAWER 7, Y5N ONE ×2 (09:25→11:56)
[2018-02-09] MEDS: CYANOCOBALAMIN 1,000 MCG TABLET (FP) PO SCH (09:32)
[2018-02-09] MEDS: SOLIFENACIN SUCCINATE 5 MG TAB (FP) PO SCH (09:33)
[2018-02-09] MEDS: PREGABALIN 75 MG CAPSULE PO SCH ×2 (09:33→23:56)
[2018-02-09] MEDS: LACTOBACILLUS ACIDOPHILUS 1 TABLET PO SCH ×2 (09:33→23:56)
[2018-02-09] MEDS: ASCORBIC ACID 500 MG TABLET (FP) PO SCH (09:34)
[2018-02-09] MEDS: PANTOPRAZOLE 40 MG TABLET (FP) PO SCH (09:34)
[2018-02-09] MEDS: FERROUS SO4 325 MG TABLET (FP) PO SCH (09:34)
[2018-02-09] MEDS: CEFEPIME 2 GM in DEXTROSE 5%-WATER 100 ML IVPB SCH ×2 (09:35→23:55)
[2018-02-09] MEDS: LOSARTAN POTASSIUM 50 MG TABLET (FP) PO SCH (09:35)
[2018-02-09] MEDS: APIXABAN 5 MG TABLET PO SCH ×2 (09:35→23:55)
[2018-02-09] MEDS: ESCITALOPRAM OXALATE 10 MG TABLET (FP) PO SCH (09:35)
[2018-02-09] MEDS: LIDOCAINE 5% TOPICAL PATCH TP SCH (09:35)
[2018-02-09] MEDS: BUDESONIDE/FORMETEROL FUMARATE 80/4.5 mcg INHALER IH SCH ×2 (09:36→23:53)
[2018-02-09] MEDS: PRAMIPEXOLE DIHYDROCHLORIDE 0.25 MG TABLET PO SCH ×2 (09:36→23:55)
[2018-02-09] MEDS: POLYETHYLENE GLYCOL 3350 119 GM BTL PO SCH (09:36)
--- NOTE | 2018-02-09 11:03 | CONS ---
DATE OF CONSULTATION: 02/09/2018 REFERRING PHYSICIAN: Karma Rogel MD HISTORY OF PRESENT ILLNESS: The patient is a 78-year-old woman with past medical history of bilateral total knee replacements, left total hip replacement as well as coronary artery disease, COPD, and possible atrial fibrillation who was admitted with inability to walk, pain radiating down both lower extremities with numbness and weakness in her lower extremities. The patient evidently developed back problems recently and underwent an MRI of the lumbosacral spine back on January 14 and had been diagnosed apparently with osteomyelitis and started on antibiotics. She developed worsening numbness, weakness in her lower extremities, inability to walk, and was brought to [facility] on or about February 05, 2018. She underwent an MRI on February 06, which was compared to previous MRI and showed new L5 and S1 signal abnormality of the vertebral bodies, epidural fluid with severe compression L5 and S1, 16-mm AP thickness. The patient is undergoing further antibiotics. ID, Neurosurgery, and Neurology were consulted. Her CRP apparently is improving. Last CRP on February 05 was 4.2, WBCs 5.9, hemoglobin 9.7, platelet count 224. The patient's chemistry showed a sodium 139, potassium 4.3, CO2 was 29, chloride 102 , BUN 9, creatinine 0.5, magnesium level low at 1.6. Last blood work today was stable. WBCs 4.5, hemoglobin 9.2, platelet count 216. Chemistry showed normal sodium 136, potassium 4.2, chloride 100, BUN 10, creatinine 0.7. The patient continues to get back pain as well as pain, numbness, tingling, and weakness in the distal lower extremities. The patient was seen by physical therapy and unable to ambulate. PAST MEDICAL HISTORY: Hyperlipidemia, hypertension, coronary artery disease, COPD, hypothyroidism, PICC line, atrial fibrillation on Eliquis. PAST SURGICAL HISTORY: Bilateral total knee replacement, left total hip replacement, left mastectomy. SOCIAL HISTORY: The patient apparently was independent prior to admission, but this is uncertain, per physical therapy. The patient is unreliable. She had been living in a [facility] facility possibly. Current function: She had minimal assist for rolling, supine to sit with moderate assist of 1. Not able to stand or ambulate. REVIEW OF SYSTEMS: No headache, no lightheadedness or dizziness. No blurry vision, double vision, change in vision. No nausea, vomiting, difficulty swallowing, difficulty chewing, chest pain, or shortness of breath. Currently she does complain of a lot of back pain, numbness, tingling, and weakness in the lower extremities. No bowel or bladder incontinence or retention. No fever or chills. No upper extremity numbness, tingling, or weakness. No skin rash or breakdown. PHYSICAL EXAMINATION: General: An elderly woman seen lying supine in bed. She is in distress when moving but no acute distress at rest. HEENT: She is normocephalic and atraumatic. Extraocular muscles appear intact. Neck: Supple. Extremities: Without any pitting edema or calf tenderness. Neuromuscular: She is awake, alert, and oriented x3. Cranial nerves 2-12 are grossly intact. She has some arthritic changes in the hands but fairly good range and strength in the upper extremities. In the lower extremities it shows at least 4/5 distal dorsiflexion and plantar flexion but hip girdle and proximal strength causes a lot of back pain and is only 1/5 due to pain. She has diminished sensation to pinprick in L5 and S1 dermatomes. Less in L4 dermatome. Normal L2 and L3 dermatomes. Normal in the upper extremities to pinprick. Reflexes are unreliable but depressed in the lower extremities, normal in the upper extremities. Toes appear downgoing. Unable to stand or ambulate. She is not ambulating at this point. EMG/NCS of the Bilateral lower limbs: Please report in paper chart and scanned into the EMR. OVERALL IMPRESSION: 1. L5 and S1 polyradiculopathy probably due to underlying fluid and compression , underlying osteomyelitis 2. No Electrodiagnostic Evidence of Polyneuropathy or Myopathy. 3. Gait disorder. 4. Anemia. 5. History of coronary artery disease, possible atrial fibrillation. 6. Chronic obstructive pulmonary disease. 7. Hypertension. 8. Hyperlipidemia. 9. Hypothyroidism. PLAN/SUGGESTION: 1. Pain control, consider pain management consultation 2. Consider LS Orthosis 3. ID follow up. 4. Neurosurgical follow up. 5. Neurology follow up. 6. Continue Physical therapy. 7. Will need extensive rehab, consider acute inpatient program such as [facility]. 8. Bowel program and monitor for constipation. 9. Skin precautions, monitor heels and sacrum for erythema or breakdown. 10. DVT prophylaxis Thank you for this referral. ALIN CABEZAS M.D. SAVANNA/[id number] CHARLENE
[2018-02-09] MEDS: oxyCODONE HCL 10 MG SUSTAINED ACTING TABLET PO SCH ×2 (11:58→23:54)
[2018-02-09] MEDS: MAGNESIUM CL 64 MG TABLET.SA PO SCH (11:59)
[2018-02-09] MEDS: SENNOSIDES 8.6MG TABLET (FP) PO SCH (23:53)
[2018-02-09] MEDS: ROSUVASTATIN CA 10 MG TABLET (FP) PO SCH (23:54)
[2018-02-09] MEDS: DOCUSATE SODIUM 100 MG CAPSULE (FP) PO SCH (23:54)
[2018-02-09] MEDS: LIDOCAINE PATCH REMOVAL MC SCH (23:56)
[2018-02-10] MEDS: POLYETHYLENE GLYCOL 3350 119 GM BTL PO SCH ×3 (00:04→23:08)
[2018-02-10] MEDS ORDERED: ALBUTEROL SO4 0.083% IH SOL 2.5 MG/3 ML VIAL.NEB. NEB PRN (02:56)
[2018-02-10] MEDS ORDERED: VANCOMYCIN 1 GM PREMIX - 1 GM/200 ML BAG IVPB SCH (05:00)
[2018-02-10] MEDS: oxyCODONE HCL 5 MG TABLET PO PRN (05:18)
[2018-02-10] MEDS: LEVOTHYROXINE NA 50 MCG TABLET (FP) PO SCH (06:01)
[2018-02-10] MEDS: VANCOMYCIN 1 GM PREMIX - 1 GM/200 ML BAG IVPB SCH (06:01)
[2018-02-10 08:01] LABS: BASO % 0.5 % (0-2.0); EOS % 2.6 % (0-4.5); MCH 28.9 pg (25.7-33.7); MCHC 33.3 g/dl (32.0-36.0); MEAN CELL VOLUME 86.9 fl (80-96); MEAN PLT VOLUME 7.7 fl (7.5-11.1); MONO % 9.9 % (3.8-10.2); PLATELET COUNT 225 K/MM3 (134-434); RBC 3.11 M/mm3 (3.60-5.2); RDW 14.7 % (11.6-15.6); WHITE BLOOD COUNT 4.8 K/mm3 (4.0-10.0)
[2018-02-10] MEDS: ALBUTEROL SO4 2.5/IPRATROPIUM 0.5 INH SOL 3 ML VIAL.NEB. NEB SCH ×3 (08:31→20:35)
[2018-02-10 08:44] LABS: ALBUMIN 2.4 g/dl (3.4-5.0); ALK PHOS 73 U/L (45-117); ANION GAP 8 (8-16); BILIRUBIN,TOTAL 0.3 mg/dL (0.2-1.0); BLOOD UREA NITROGEN 12 mg/dL (7-18); CALCIUM 9.7 mg/dL (8.5-10.1); CHLORIDE 101 mmol/L (98-107); CO2 28 mmol/L (21-32); CREATININE 0.7 mg/dL (0.55-1.02); GLUCOSE,RANDOM 122 mg/dL (74-106); POTASSIUM 4.3 mmol/L (3.5-5.1); SGOT/AST 15 U/L (15-37); SGPT/ALT 20 U/L (12-78); SODIUM 137 mmol/L (136-145); TOT PROT 6.3 g/dl (6.4-8.2)
[2018-02-10] MEDS ORDERED: PT OWN MED DRAWER 7, Y5N ONE ×2 (10:41→23:02)
[2018-02-10] MEDS: PREGABALIN 75 MG CAPSULE PO SCH ×2 (10:47→23:07)
[2018-02-10] MEDS: CYANOCOBALAMIN 1,000 MCG TABLET (FP) PO SCH (10:48)
[2018-02-10] MEDS: PANTOPRAZOLE 40 MG TABLET (FP) PO SCH (10:49)
[2018-02-10] MEDS: ASCORBIC ACID 500 MG TABLET (FP) PO SCH (10:49)
[2018-02-10] MEDS: FERROUS SO4 325 MG TABLET (FP) PO SCH (10:49)
[2018-02-10] MEDS: LACTOBACILLUS ACIDOPHILUS 1 TABLET PO SCH ×2 (10:49→23:07)
[2018-02-10] MEDS: oxyCODONE HCL 10 MG SUSTAINED ACTING TABLET PO SCH ×2 (10:50→23:08)
[2018-02-10] MEDS: SOLIFENACIN SUCCINATE 5 MG TAB (FP) PO SCH (10:50)
[2018-02-10] MEDS: LOSARTAN POTASSIUM 50 MG TABLET (FP) PO SCH (10:50)
[2018-02-10] MEDS: MAGNESIUM CL 64 MG TABLET.SA PO SCH (10:51)
[2018-02-10] MEDS: APIXABAN 5 MG TABLET PO SCH ×2 (10:51→23:05)
[2018-02-10] MEDS: PRAMIPEXOLE DIHYDROCHLORIDE 0.25 MG TABLET PO SCH ×2 (10:51→23:08)
[2018-02-10] MEDS: LIDOCAINE 5% TOPICAL PATCH TP SCH (10:52)
[2018-02-10] MEDS: BUDESONIDE/FORMETEROL FUMARATE 80/4.5 mcg INHALER IH SCH ×2 (10:52→23:04)
[2018-02-10] MEDS: CEFEPIME 2 GM in DEXTROSE 5%-WATER 100 ML IVPB SCH ×2 (10:52→23:00)
[2018-02-10] MEDS: ESCITALOPRAM OXALATE 10 MG TABLET (FP) PO SCH (10:53)
--- NOTE | 2018-02-10 14:10 | PN ---
Progress Note, Physician Chief Complaint: Ms Davies says the pain is improved but still significant. Saying she cannot move her feet. No cp, sob, n/v. - Current Medication List Current Medications: Active Medications Albuterol Sulfate (Ventolin 0.083% Nebulizer Soln -) 1 amp NEB Q4H PRN PRN Reason: SHORT OF BREATH/WHEEZING Last Admin: 02/10/18 03:16 Dose: 1 amp Albuterol/Ipratropium (Duoneb -) 1 amp NEB RTID [facility] Last Admin: 02/10/18 08:31 Dose: 1 amp Apixaban (Eliquis -) 5 mg PO BID [facility] Last Admin: 02/10/18 10:51 Dose: 5 mg Ascorbic Acid (Vitamin C -) 500 mg PO DAILY [facility] Last Admin: 02/10/18 10:49 Dose: 500 mg Budesonide/Formoterol Fumarate (Symbicort 80/4.5mcg -) 2 puff IH BID [facility] Last Admin: 02/10/18 10:52 Dose: 2 puff Cyanocobalamin (Vitamin B12 -) 2,500 mcg PO DAILY [facility] Last Admin: 02/10/18 10:48 Dose: 2,500 mcg Docusate Sodium (Colace -) 100 mg PO HS [facility] Last Admin: 02/09/18 23:54 Dose: 100 mg Escitalopram Oxalate (Lexapro -) 10 mg PO DAILY [facility] Last Admin: 02/10/18 10:53 Dose: Not Given Ferrous Sulfate (Feosol -) 325 mg PO DAILY [facility] Last Admin: 02/10/18 10:49 Dose: 325 mg IV Flush (Picc Line Flush) 8 ml IVPUSH PRN PRN PRN Reason: Protocol Last Admin: 02/08/18 10:18 Dose: 8 ml Cefepime HCl 2 gm/ Dextrose 100 mls @ 100 mls/hr IVPB BID [facility]; Protocol Last Admin: 02/10/18 10:52 Dose: 100 mls/hr Vancomycin HCl (Vancomycin 1 Gm Premix -) 1 gm in 200 mls @ 133.333 mls/hr IVPB Q24H [facility]; Protocol Last Admin: 02/10/18 06:01 Dose: 133.333 mls/hr Lactobacillus Acidophilus (Bacid -) 1 tab PO BID [facility] Last Admin: 02/10/18 10:49 Dose: 1 tab Levothyroxine Sodium (Synthroid -) 50 mcg PO DAILY@0700 [facility] Last Admin: 02/10/18 06:01 Dose: 50 mcg Lidocaine (Lidoderm Patch -) 1 patch TP DAILY [facility] Last Admin: 02/10/18 10:52 Dose: 1 patch Losartan Potassium (Cozaar -) 50 mg PO DAILY [facility] Last Admin: 02/10/18 10:50 Dose: 50 mg Magnesium Chloride (Slow-Mag -) 128 mg PO DAILY [facility] Last Admin: 02/10/18 10:51 Dose: 128 mg Metoprolol Succinate (Toprol Xl -) 50 mg PO DAILY [facility] Last Admin: 02/10/18 10:47 Dose: 50 mg Miscellaneous (Lidoderm Patch Removal) 1 each MC DAILY@2200 [facility] Last Admin: 02/09/18 23:56 Dose: 1 each Oxycodone HCl (Roxicodone -) 10 mg PO Q6H PRN PRN Reason: PAIN LEVEL 6-10 Last Admin: 02/10/18 05:18 Dose: 10 mg Oxycodone HCl (Oxycontin -) 10 mg PO BID [facility] Last Admin: 02/10/18 10:50 Dose: 10 mg Pantoprazole Sodium (Protonix -) 40 mg PO DAILY [facility] Last Admin: 02/10/18 10:49 Dose: 40 mg Polyethylene Glycol (Miralax (For Daily Use) -) 17 gm PO BID [facility] Last Admin: 02/10/18 10:53 Dose: 17 gm Pramipexole Dihydrochloride (Mirapex -) 0.25 mg PO BID [facility] Last Admin: 02/10/18 10:51 Dose: 0.25 mg Pregabalin (Lyrica -) 150 mg PO BID [facility] Last Admin: 02/10/18 10:47 Dose: 150 mg Rosuvastatin Calcium (Crestor -) 10 mg PO HS [facility] Last Admin: 02/09/18 23:54 Dose: 10 mg Senna (Senna -) 2 tab PO HS [facility] Last Admin: 02/09/18 23:53 Dose: 2 tab Solifenacin (Vesicare -) 10 mg PO DAILY [facility] Last Admin: 02/10/18 10:50 Dose: 10 mg - Objective Vital Signs: Vital Signs Temperature 36.7 C 02/10/18 10:00 Pulse Rate 90 02/10/18 10:00 Respiratory Rate 19 02/10/18 10:00 Blood Pressure 112/56 02/10/18 10:00 O2 Sat by Pulse Oximetry (%) 98 02/09/18 23:00 Constitutional: Yes: Well Nourished, No Distress, Calm Cardiovascular: Yes: Regular Rate and Rhythm. No: Gallop, Murmur, Rub Respiratory: Yes: Regular, CTA Bilaterally. No: Rales, Rhonchi, Wheezes Gastrointestinal: Yes: Normal Bowel Sounds, Soft. No: Distention, Tenderness Extremities: Yes: WNL Edema: No ...Motor Strength: LLE (4/5), RLE (4/5) Labs: CBC, BMP 02/10/18 07:30 02/10/18 07:30 INR, PTT INR 1.88 (0.82-1.09) H 02/08/18 06:45 Problem List - Problems (1) Leg pain Code(s): M79.606 - PAIN IN LEG, UNSPECIFIED Qualifiers: Laterality: bilateral Qualified Code(s): M79.604 - Pain in right leg; M79.605 - Pain in left leg (2) CAD (coronary artery disease) Code(s): I25.10 - ATHSCL HEART DISEASE OF [place] CORONARY ARTERY W/O ANG PCTRS (3) COPD (chronic obstructive pulmonary disease) Code(s): J44.9 - CHRONIC OBSTRUCTIVE PULMONARY DISEASE, UNSPECIFIED (4) HLD (hyperlipidemia) Code(s): E78.5 - HYPERLIPIDEMIA, UNSPECIFIED (5) HTN (hypertension) Code(s): I10 - ESSENTIAL (PRIMARY) HYPERTENSION Qualifiers: Hypertension type: essential hypertension Qualified Code(s): I10 - Essential (primary) hypertension (6) Hypothyroid Code(s): E03.9 - HYPOTHYROIDISM, UNSPECIFIED Assessment/Plan (1) Leg pain Assessment/Plan: -neurology and neurosurgery following -appreciate Dr Felton's assistance as well -cathy olpez -on oxycontin 10mg bid with prn oxycodone -encouraged patient to take lexapro as can help with pain -continue PT Code(s): M79.606 - PAIN IN LEG, UNSPECIFIED Qualifiers: Laterality: bilateral Qualified Code(s): M79.604 - Pain in right leg; M79.605 - Pain in left leg (2) CAD (coronary artery disease) Assessment/Plan: -quiescent -continue current regimen Code(s): I25.10 - ATHSCL HEART DISEASE OF [place] CORONARY ARTERY W/O ANG PCTRS (3) COPD (chronic obstructive pulmonary disease) Assessment/Plan: -continue duonebs -stable Code(s): J44.9 - CHRONIC OBSTRUCTIVE PULMONARY DISEASE, UNSPECIFIED (4) HLD (hyperlipidemia) Assessment/Plan: -continue statin Code(s): E78.5 - HYPERLIPIDEMIA, UNSPECIFIED (5) HTN (hypertension) Assessment/Plan: -continue toprol xl and losartan Code(s): I10 - ESSENTIAL (PRIMARY) HYPERTENSION Qualifiers: Hypertension type: essential hypertension Qualified Code(s): I10 - Essential (primary) hypertension (6) Hypothyroid Assessment/Plan: -continue synthroid Code(s): E03.9 - HYPOTHYROIDISM, UNSPECIFIED
--- NOTE | 2018-02-10 20:44 | HOSP ---
Subjective - Review of Symptoms Events since last encounter: called by nurse who is concerned that pt is confused. As per nurse, pt told day team that we are giving her the wrong medications. Subjective: Pt reports frustration that she isn't getting better, is concerned that she is getting worse and wants to know when she is going home. She states that the [facility] told her that she would go home from the hospital when they transferred her back to the hospital. No new acute complaints. Physical Examination Vital Signs: Vital Signs Temperature 98.0 F 02/10/18 19:00 Pulse Rate 106 H 02/10/18 19:00 Respiratory Rate 20 02/10/18 19:00 Blood Pressure 123/71 02/10/18 19:00 O2 Sat by Pulse Oximetry (%) 98 02/10/18 15:00 Constitutional: Yes: No Distress, Calm Cardiovascular: Yes: Regular Rate and Rhythm, S1, S2 Respiratory: Yes: CTA Bilaterally Gastrointestinal: Yes: Normal Bowel Sounds, Soft Neurological: Yes: Alert, Oriented (x3) Labs: CBC, BMP 02/10/18 07:30 02/10/18 07:30 Hospitalist Encounter Assessment: Discitis/osteomyelitis and radiculopathy - pt is A&Ox3, i believe nurse may have misunderstood what patient was saying to her - pt is able to express her feelings and frustrations in what seems to be a logical manner - cont current treatment.
[2018-02-10 21:16] LABS: BASO % 0.4 % (0-2.0); EOS % 3.4 % (0-4.5); HEMATOCRIT 27.8 % (32.4-45.2); HEMOGLOBIN 9.2 GM/dL (10.7-15.3); MCH 28.5 pg (25.7-33.7); MEAN CELL VOLUME 86.4 fl (80-96); MONO % 12.8 % (3.8-10.2); NEUT % 62.4 % (42.8-82.8); PLATELET COUNT 250 K/MM3 (134-434); RBC 3.22 M/mm3 (3.60-5.2); RDW 14.4 % (11.6-15.6); WHITE BLOOD COUNT 4.9 K/mm3 (4.0-10.0)
[2018-02-10 21:35] LABS: ANION GAP 6 (8-16); BLOOD UREA NITROGEN 12 mg/dL (7-18); CALCIUM 9.4 mg/dL (8.5-10.1); CHLORIDE 101 mmol/L (98-107); CO2 31 mmol/L (21-32); CREATININE 0.8 mg/dL (0.55-1.02); GLUCOSE,RANDOM 115 mg/dL (74-106); POTASSIUM 4.2 mmol/L (3.5-5.1); SODIUM 138 mmol/L (136-145)
[2018-02-10] MEDS ORDERED: MAGNESIUM OXIDE 400 MG TABLET (FP) PO ONE (21:48)
[2018-02-10] MEDS: ROSUVASTATIN CA 10 MG TABLET (FP) PO SCH (23:04)
[2018-02-10] MEDS: SENNOSIDES 8.6MG TABLET (FP) PO SCH (23:04)
[2018-02-10] MEDS: DOCUSATE SODIUM 100 MG CAPSULE (FP) PO SCH (23:07)
[2018-02-10] MEDS: LIDOCAINE PATCH REMOVAL MC SCH (23:07)
[2018-02-11] MEDS: LEVOTHYROXINE NA 50 MCG TABLET (FP) PO SCH (06:37)
[2018-02-11] MEDS: oxyCODONE HCL 5 MG TABLET PO PRN (07:10)
[2018-02-11 07:26] LABS: BASO % 0.4 % (0-2.0); EOS % 3.6 % (0-4.5); HEMATOCRIT 26.8 % (32.4-45.2); HEMOGLOBIN 9.1 GM/dL (10.7-15.3); LYMPH % 21.6 % (8-40); MCH 28.9 pg (25.7-33.7); MEAN CELL VOLUME 84.9 fl (80-96); MEAN PLT VOLUME 7.6 fl (7.5-11.1); MONO % 9.7 % (3.8-10.2); NEUT % 64.7 % (42.8-82.8); PLATELET COUNT 244 K/MM3 (134-434); RBC 3.16 M/mm3 (3.60-5.2); RDW 14.7 % (11.6-15.6); WHITE BLOOD COUNT 4.8 K/mm3 (4.0-10.0)
[2018-02-11 07:29] LABS: CHLORIDE 104 mmol/L (98-107); SODIUM 139 mmol/L (136-145)
[2018-02-11 07:41] LABS: ANION GAP 6 (8-16); BLOOD UREA NITROGEN 12 mg/dL (7-18); CALCIUM 9.5 mg/dL (8.5-10.1); CO2 29 mmol/L (21-32); CREATININE 0.6 mg/dL (0.55-1.02); GLUCOSE,RANDOM 93 mg/dL (74-106); MAGNESIUM 1.7 mg/dL (1.8-2.4); PHOSPHOROUS 3.4 mg/dL (2.5-4.9)
[2018-02-11] MEDS: ALBUTEROL SO4 2.5/IPRATROPIUM 0.5 INH SOL 3 ML VIAL.NEB. NEB SCH ×3 (08:15→20:24)
[2018-02-11] MEDS ORDERED: PT OWN MED DRAWER 7, Y5N ONE ×2 (09:44→21:19)
--- NOTE | 2018-02-11 09:50 | PN ---
Progress Note (short form) - Note Progress Note: NEUROSURGERY Received Vanco and Cefepime x 3 weeks. Had L > R leg weakness previously, now c /o R > L leg weakness. Also R shoulder pain. Denies fever or chill. PE: Tmax 98.3, AF, VSS HEENT- NC, AT; Neck- supple; Cor- RR; Lungs- CTA; Abd- obese, benign; Ext- no sign of DVT CN- intact II-XII; Motor- 4+-5/5 throughout except R DF 4 and L DF 4+; Sensation - decreased RL L4-5-S1 to LT(unchanged); DTR- hyporeflexic B WBC 4.8; Vanco trough 10.68 LS spine MRI - Increased L5 and S1 vertebral edema; anterior epidural soft tissue c/w phlegmon (not drainable) and stenosis L5-1/L4-5; decreased anterior prevertebral edema Symptomatic L5-S1 spondylolisthesis and stenosis complicated by L5-S1 discitis/ osteomyelitis and paraspinal/facet infectious/inflammatory process Clinical L5 radiculopathy ID f/u Complete iv abx course Residual symptoms to be expected because of current infection and pre-existing spondylolisthesis/stenosis/radiculopathy OOB/mobilize Add Ensure for nutritional support
[2018-02-11] MEDS: ESCITALOPRAM OXALATE 10 MG TABLET (FP) PO SCH (09:53)
[2018-02-11] MEDS: VANCOMYCIN 1 GM PREMIX - 1 GM/200 ML BAG IVPB SCH (09:53)
[2018-02-11] MEDS: ASCORBIC ACID 500 MG TABLET (FP) PO SCH (09:53)
[2018-02-11] MEDS: LACTOBACILLUS ACIDOPHILUS 1 TABLET PO SCH ×2 (09:54→21:32)
[2018-02-11] MEDS: CYANOCOBALAMIN 1,000 MCG TABLET (FP) PO SCH (09:54)
[2018-02-11] MEDS: PANTOPRAZOLE 40 MG TABLET (FP) PO SCH (09:55)
[2018-02-11] MEDS: SOLIFENACIN SUCCINATE 5 MG TAB (FP) PO SCH (09:55)
[2018-02-11] MEDS: LOSARTAN POTASSIUM 50 MG TABLET (FP) PO SCH (09:56)
[2018-02-11] MEDS: PREGABALIN 75 MG CAPSULE PO SCH ×2 (09:56→21:31)
[2018-02-11] MEDS: oxyCODONE HCL 10 MG SUSTAINED ACTING TABLET PO SCH ×2 (09:56→21:30)
[2018-02-11] MEDS: FERROUS SO4 325 MG TABLET (FP) PO SCH (09:56)
[2018-02-11] MEDS: PRAMIPEXOLE DIHYDROCHLORIDE 0.25 MG TABLET PO SCH ×2 (09:57→21:32)
[2018-02-11] MEDS: APIXABAN 5 MG TABLET PO SCH ×2 (09:57→21:31)
[2018-02-11] MEDS: MAGNESIUM CL 64 MG TABLET.SA PO SCH (09:58)
[2018-02-11] MEDS: CEFEPIME 2 GM in DEXTROSE 5%-WATER 100 ML IVPB SCH ×2 (09:58→21:32)
[2018-02-11] MEDS: BUDESONIDE/FORMETEROL FUMARATE 80/4.5 mcg INHALER IH SCH ×2 (09:58→21:41)
[2018-02-11] MEDS: POLYETHYLENE GLYCOL 3350 119 GM BTL PO SCH ×2 (09:59→21:41)
--- NOTE | 2018-02-11 10:28 | PN ---
Progress Note, Physician History of Present Illness: Awake in bed Reports no change in LE weakness and numbness Afebrile Tolerating antibiotics Vanco trough 10.6 - Current Medication List Current Medications: Active Medications Albuterol Sulfate (Ventolin 0.083% Nebulizer Soln -) 1 amp NEB Q4H PRN PRN Reason: SHORT OF BREATH/WHEEZING Last Admin: 02/10/18 03:16 Dose: 1 amp Albuterol/Ipratropium (Duoneb -) 1 amp NEB RTID [facility] Last Admin: 02/11/18 08:15 Dose: 1 amp Apixaban (Eliquis -) 5 mg PO BID [facility] Last Admin: 02/11/18 09:57 Dose: 5 mg Ascorbic Acid (Vitamin C -) 500 mg PO DAILY [facility] Last Admin: 02/11/18 09:53 Dose: 500 mg Budesonide/Formoterol Fumarate (Symbicort 80/4.5mcg -) 2 puff IH BID [facility] Last Admin: 02/11/18 09:58 Dose: 2 puff Cyanocobalamin (Vitamin B12 -) 2,500 mcg PO DAILY [facility] Last Admin: 02/11/18 09:54 Dose: 2,500 mcg Docusate Sodium (Colace -) 100 mg PO HS [facility] Last Admin: 02/10/18 23:07 Dose: 100 mg Escitalopram Oxalate (Lexapro -) 10 mg PO DAILY [facility] Last Admin: 02/11/18 09:53 Dose: 10 mg Ferrous Sulfate (Feosol -) 325 mg PO DAILY [facility] Last Admin: 02/11/18 09:56 Dose: 325 mg IV Flush (Picc Line Flush) 8 ml IVPUSH PRN PRN PRN Reason: Protocol Last Admin: 02/08/18 10:18 Dose: 8 ml Cefepime HCl 2 gm/ Dextrose 100 mls @ 100 mls/hr IVPB BID [facility]; Protocol Last Admin: 02/11/18 09:58 Dose: 100 mls/hr Vancomycin HCl (Vancomycin 1 Gm Premix -) 1 gm in 200 mls @ 133.333 mls/hr IVPB Q24H [facility]; Protocol Last Admin: 02/11/18 09:53 Dose: 133.333 mls/hr Lactobacillus Acidophilus (Bacid -) 1 tab PO BID [facility] Last Admin: 02/11/18 09:54 Dose: 1 tab Levothyroxine Sodium (Synthroid -) 50 mcg PO DAILY@0700 [facility] Last Admin: 02/11/18 06:37 Dose: 50 mcg Losartan Potassium (Cozaar -) 50 mg PO DAILY [facility] Last Admin: 02/11/18 09:56 Dose: 50 mg Magnesium Chloride (Slow-Mag -) 128 mg PO DAILY [facility] Last Admin: 02/11/18 09:58 Dose: 128 mg Metoprolol Succinate (Toprol Xl -) 50 mg PO DAILY [facility] Last Admin: 02/11/18 09:55 Dose: 50 mg Miscellaneous (Lidoderm Patch Removal) 1 each MC DAILY@2200 [facility] Last Admin: 02/10/18 23:07 Dose: 1 each Oxycodone HCl (Roxicodone -) 10 mg PO Q6H PRN PRN Reason: PAIN LEVEL 6-10 Last Admin: 02/11/18 07:10 Dose: 10 mg Oxycodone HCl (Oxycontin -) 10 mg PO BID [facility] Last Admin: 02/11/18 09:56 Dose: 10 mg Pantoprazole Sodium (Protonix -) 40 mg PO DAILY [facility] Last Admin: 02/11/18 09:55 Dose: 40 mg Polyethylene Glycol (Miralax (For Daily Use) -) 17 gm PO BID [facility] Last Admin: 02/11/18 09:59 Dose: 17 gm Pramipexole Dihydrochloride (Mirapex -) 0.25 mg PO BID [facility] Last Admin: 02/11/18 09:57 Dose: 0.25 mg Pregabalin (Lyrica -) 150 mg PO BID [facility] Last Admin: 02/11/18 09:56 Dose: 150 mg Rosuvastatin Calcium (Crestor -) 10 mg PO [facility] Last Admin: 02/10/18 23:04 Dose: 10 mg Senna (Senna -) 2 tab PO [facility] Last Admin: 02/10/18 23:04 Dose: 2 tab Solifenacin (Vesicare -) 10 mg PO DAILY [facility] Last Admin: 02/11/18 09:55 Dose: 10 mg - Objective Vital Signs: Vital Signs Temperature 98.3 F 02/11/18 06:00 Pulse Rate 101 H 02/11/18 06:00 Respiratory Rate 20 02/11/18 06:00 Blood Pressure 129/69 02/11/18 06:00 O2 Sat by Pulse Oximetry (%) 98 02/10/18 23:00 Constitutional: Yes: No Distress Cardiovascular: Yes: Regular Rate and Rhythm, S1, S2 Respiratory: Yes: CTA Bilaterally Gastrointestinal: Yes: Normal Bowel Sounds, Soft. No: Tenderness Extremities: Yes: Other (PICC R UE) Edema: Yes Edema: LLE: 1+, RLE: 1+ Labs: CBC, BMP 02/11/18 06:50 02/11/18 06:50 INR, PTT INR 1.88 (0.82-1.09) H 02/08/18 06:45 Assessment/Plan Discitis/ vertebral osteomyelitis L5S1 Continue vancomycin/ cefepime Increase vancomycin 1250mg qd Repeat ESR CRP
[2018-02-11] MEDS ORDERED: MAGNESIUM 2GM/50ML STERILE WATER IVPB IVPB ONE (11:54)
--- NOTE | 2018-02-11 11:55 | PN ---
Progress Note, Physician Chief Complaint: Ms Davies still complains of pain in her back and legs. No cp, sob, n/v. - Current Medication List Current Medications: Active Medications Albuterol Sulfate (Ventolin 0.083% Nebulizer Soln -) 1 amp NEB Q4H PRN PRN Reason: SHORT OF BREATH/WHEEZING Last Admin: 02/10/18 03:16 Dose: 1 amp Albuterol/Ipratropium (Duoneb -) 1 amp NEB RTID [facility] Last Admin: 02/11/18 08:15 Dose: 1 amp Apixaban (Eliquis -) 5 mg PO BID [facility] Last Admin: 02/11/18 09:57 Dose: 5 mg Ascorbic Acid (Vitamin C -) 500 mg PO DAILY [facility] Last Admin: 02/11/18 09:53 Dose: 500 mg Budesonide/Formoterol Fumarate (Symbicort 80/4.5mcg -) 2 puff IH BID [facility] Last Admin: 02/11/18 09:58 Dose: 2 puff Cyanocobalamin (Vitamin B12 -) 2,500 mcg PO DAILY [facility] Last Admin: 02/11/18 09:54 Dose: 2,500 mcg Docusate Sodium (Colace -) 100 mg PO HS [facility] Last Admin: 02/10/18 23:07 Dose: 100 mg Escitalopram Oxalate (Lexapro -) 10 mg PO DAILY [facility] Last Admin: 02/11/18 09:53 Dose: 10 mg Ferrous Sulfate (Feosol -) 325 mg PO DAILY [facility] Last Admin: 02/11/18 09:56 Dose: 325 mg IV Flush (Picc Line Flush) 8 ml IVPUSH PRN PRN PRN Reason: Protocol Last Admin: 02/08/18 10:18 Dose: 8 ml Cefepime HCl 2 gm/ Dextrose 100 mls @ 100 mls/hr IVPB BID [facility]; Protocol Last Admin: 02/11/18 09:58 Dose: 100 mls/hr Vancomycin HCl 1,250 mg/ (Dextrose) 250 mls @ 250 mls/2 hr IVPB Q24H [facility]; Protocol Lactobacillus Acidophilus (Bacid -) 1 tab PO BID [facility] Last Admin: 02/11/18 09:54 Dose: 1 tab Levothyroxine Sodium (Synthroid -) 50 mcg PO DAILY@0700 [facility] Last Admin: 02/11/18 06:37 Dose: 50 mcg Losartan Potassium (Cozaar -) 50 mg PO DAILY [facility] Last Admin: 02/11/18 09:56 Dose: 50 mg Magnesium Chloride (Slow-Mag -) 128 mg PO DAILY [facility] Last Admin: 02/11/18 09:58 Dose: 128 mg Metoprolol Succinate (Toprol Xl -) 50 mg PO DAILY [facility] Last Admin: 02/11/18 09:55 Dose: 50 mg Miscellaneous (Lidoderm Patch Removal) 1 each MC DAILY@2200 [facility] Last Admin: 02/10/18 23:07 Dose: 1 each Oxycodone HCl (Roxicodone -) 10 mg PO Q6H PRN PRN Reason: PAIN LEVEL 6-10 Last Admin: 02/11/18 07:10 Dose: 10 mg Oxycodone HCl (Oxycontin -) 10 mg PO BID [facility] Last Admin: 02/11/18 09:56 Dose: 10 mg Pantoprazole Sodium (Protonix -) 40 mg PO DAILY [facility] Last Admin: 02/11/18 09:55 Dose: 40 mg Polyethylene Glycol (Miralax (For Daily Use) -) 17 gm PO BID [facility] Last Admin: 02/11/18 09:59 Dose: 17 gm Pramipexole Dihydrochloride (Mirapex -) 0.25 mg PO BID [facility] Last Admin: 02/11/18 09:57 Dose: 0.25 mg Pregabalin (Lyrica -) 150 mg PO BID [facility] Last Admin: 02/11/18 09:56 Dose: 150 mg Rosuvastatin Calcium (Crestor -) 10 mg PO [facility] Last Admin: 02/10/18 23:04 Dose: 10 mg Senna (Senna -) 2 tab PO [facility] Last Admin: 02/10/18 23:04 Dose: 2 tab Solifenacin (Vesicare -) 10 mg PO DAILY [facility] Last Admin: 02/11/18 09:55 Dose: 10 mg - Objective Vital Signs: Vital Signs Temperature 36.8 C 02/11/18 06:00 Pulse Rate 101 H 02/11/18 06:00 Respiratory Rate 20 02/11/18 06:00 Blood Pressure 129/69 02/11/18 06:00 O2 Sat by Pulse Oximetry (%) 98 02/10/18 23:00 Constitutional: Yes: Well Nourished, No Distress, Calm Cardiovascular: Yes: Regular Rate and Rhythm. No: Gallop, Murmur, Rub Respiratory: Yes: Regular, CTA Bilaterally. No: Rales, Rhonchi, Wheezes Gastrointestinal: Yes: Normal Bowel Sounds, Soft. No: Distention, Tenderness Extremities: Yes: WNL Edema: No Labs: CBC, BMP 02/11/18 06:50 02/11/18 06:50 INR, PTT INR 1.88 (0.82-1.09) H 02/08/18 06:45 Problem List - Problems (1) Leg pain Code(s): M79.606 - PAIN IN LEG, UNSPECIFIED Qualifiers: Laterality: bilateral Qualified Code(s): M79.604 - Pain in right leg; M79.605 - Pain in left leg (2) CAD (coronary artery disease) Code(s): I25.10 - ATHSCL HEART DISEASE OF [place] CORONARY ARTERY W/O ANG PCTRS (3) COPD (chronic obstructive pulmonary disease) Code(s): J44.9 - CHRONIC OBSTRUCTIVE PULMONARY DISEASE, UNSPECIFIED (4) HLD (hyperlipidemia) Code(s): E78.5 - HYPERLIPIDEMIA, UNSPECIFIED (5) HTN (hypertension) Code(s): I10 - ESSENTIAL (PRIMARY) HYPERTENSION Qualifiers: Hypertension type: essential hypertension Qualified Code(s): I10 - Essential (primary) hypertension (6) Hypothyroid Code(s): E03.9 - HYPOTHYROIDISM, UNSPECIFIED Assessment/Plan (1) Leg pain Assessment/Plan: -neurology and neurosurgery following -appreciate Dr Felton's assistance as well -cathy increased this admission -on oxycontin 10mg bid with prn oxycodone -continue lexapro -encouraged patient to work with PT Code(s): M79.606 - PAIN IN LEG, UNSPECIFIED Qualifiers: Laterality: bilateral Qualified Code(s): M79.604 - Pain in right leg; M79.605 - Pain in left leg (2) CAD (coronary artery disease) Assessment/Plan: -quiescent -continue current regimen Code(s): I25.10 - ATHSCL HEART DISEASE OF [place] CORONARY ARTERY W/O ANG PCTRS (3) COPD (chronic obstructive pulmonary disease) Assessment/Plan: -continue duonebs -stable Code(s): J44.9 - CHRONIC OBSTRUCTIVE PULMONARY DISEASE, UNSPECIFIED (4) HLD (hyperlipidemia) Assessment/Plan: -continue statin Code(s): E78.5 - HYPERLIPIDEMIA, UNSPECIFIED (5) HTN (hypertension) Assessment/Plan: -continue toprol xl and losartan Code(s): I10 - ESSENTIAL (PRIMARY) HYPERTENSION Qualifiers: Hypertension type: essential hypertension Qualified Code(s): I10 - Essential (primary) hypertension (6) Hypothyroid Assessment/Plan: -continue synthroid Code(s): E03.9 - HYPOTHYROIDISM, UNSPECIFIED
[2018-02-11] MEDS: VANCOMYCIN 1,250 MG in DEXTROSE 5%-WATER - 250 ML IVPB SCH (12:08)
[2018-02-11 13:22] LABS: URINE APPEARANCE CLEAR; URINE BILIRUBIN NEGATIVE (<2.0 mg/dL); URINE COLOR STRAW; URINE GLUCOSE (UA) NEGATIVE (NEGATIVE); URINE KETONE NEGATIVE (NEGATIVE); URINE LEUK ESTERASE NEGATIVE (NEGATIVE); URINE NITRITE NEGATIVE (NEGATIVE); URINE PROTEIN NEGATIVE (NEGATIVE); URINE UROBILINOGEN NEGATIVE mg/dL (0.2-1.0)
[2018-02-11] MEDS: SENNOSIDES 8.6MG TABLET (FP) PO SCH (21:31)
[2018-02-11] MEDS: DOCUSATE SODIUM 100 MG CAPSULE (FP) PO SCH (21:31)
[2018-02-11] MEDS: ROSUVASTATIN CA 10 MG TABLET (FP) PO SCH (21:31)
[2018-02-11] MEDS: LIDOCAINE PATCH REMOVAL MC SCH (21:41)
[2018-02-12] MEDS: LEVOTHYROXINE NA 50 MCG TABLET (FP) PO SCH (06:17)
[2018-02-12 07:23] LABS: BASO % 0.4 % (0-2.0); EOS % 4.1 % (0-4.5); HEMATOCRIT 26.6 % (32.4-45.2); LYMPH % 23.4 % (8-40); MCH 28.8 pg (25.7-33.7); MCHC 33.9 g/dl (32.0-36.0); MEAN CELL VOLUME 84.9 fl (80-96); MEAN PLT VOLUME 7.4 fl (7.5-11.1); NEUT % 62.1 % (42.8-82.8); PLATELET COUNT 242 K/MM3 (134-434); RBC 3.13 M/mm3 (3.60-5.2); RDW 14.6 % (11.6-15.6); WHITE BLOOD COUNT 5.1 K/mm3 (4.0-10.0)
[2018-02-12 08:20] LABS: BLOOD UREA NITROGEN 14 mg/dL (7-18); CALCIUM 9.5 mg/dL (8.5-10.1); CHLORIDE 102 mmol/L (98-107); POTASSIUM 4.1 mmol/L (3.5-5.1); SODIUM 138 mmol/L (136-145)
[2018-02-12] MEDS: ALBUTEROL SO4 2.5/IPRATROPIUM 0.5 INH SOL 3 ML VIAL.NEB. NEB SCH ×3 (08:21→20:30)
[2018-02-12] MEDS: oxyCODONE HCL 5 MG TABLET PO PRN (08:37)
[2018-02-12 09:23] LABS: ANION GAP 8 (8-16); CO2 28 mmol/L (21-32); CREATININE 0.7 mg/dL (0.55-1.02); GLUCOSE,RANDOM 101 mg/dL (74-106); PHOSPHOROUS 3.6 mg/dL (2.5-4.9)
[2018-02-12] MEDS: APIXABAN 5 MG TABLET PO SCH ×2 (10:27→21:53)
[2018-02-12] MEDS: LACTOBACILLUS ACIDOPHILUS 1 TABLET PO SCH ×2 (10:27→21:52)
[2018-02-12] MEDS: PRAMIPEXOLE DIHYDROCHLORIDE 0.25 MG TABLET PO SCH ×2 (10:27→21:52)
[2018-02-12] MEDS: LOSARTAN POTASSIUM 50 MG TABLET (FP) PO SCH (10:28)
[2018-02-12] MEDS: SOLIFENACIN SUCCINATE 5 MG TAB (FP) PO SCH (10:28)
[2018-02-12] MEDS: PANTOPRAZOLE 40 MG TABLET (FP) PO SCH (10:28)
[2018-02-12] MEDS: BUDESONIDE/FORMETEROL FUMARATE 80/4.5 mcg INHALER IH SCH ×2 (10:28→21:51)
[2018-02-12] MEDS: FERROUS SO4 325 MG TABLET (FP) PO SCH (10:28)
[2018-02-12] MEDS: ESCITALOPRAM OXALATE 10 MG TABLET (FP) PO SCH (10:28)
[2018-02-12] MEDS: ASCORBIC ACID 500 MG TABLET (FP) PO SCH (10:28)
[2018-02-12] MEDS: MAGNESIUM CL 64 MG TABLET.SA PO SCH (10:29)
[2018-02-12] MEDS: CEFEPIME 2 GM in DEXTROSE 5%-WATER 100 ML IVPB SCH ×2 (10:29→21:51)
[2018-02-12] MEDS: POLYETHYLENE GLYCOL 3350 119 GM BTL PO SCH ×2 (10:42→21:52)
[2018-02-12] MEDS: oxyCODONE HCL 10 MG SUSTAINED ACTING TABLET PO SCH ×2 (10:46→21:53)
[2018-02-12] MEDS: PREGABALIN 75 MG CAPSULE PO SCH ×2 (10:46→21:52)
[2018-02-12] MEDS ORDERED: CYANOCOBALAMIN PO SCH (11:00)
[2018-02-12] MEDS: VANCOMYCIN 1,250 MG in DEXTROSE 5%-WATER - 250 ML IVPB SCH (11:44)
[2018-02-12] MEDS: CYANOCOBALAMIN 1,000 MCG TABLET (FP) PO SCH (11:53)
--- NOTE | 2018-02-12 12:57 | PN ---
Progress Note, Physician Chief Complaint: Ms Davies still complains of pain in her back and legs. No cp, sob, n/v. - Current Medication List Current Medications: Active Medications Albuterol Sulfate (Ventolin 0.083% Nebulizer Soln -) 1 amp NEB Q4H PRN PRN Reason: SHORT OF BREATH/WHEEZING Last Admin: 02/10/18 03:16 Dose: 1 amp Albuterol/Ipratropium (Duoneb -) 1 amp NEB RTID [facility] Last Admin: 02/12/18 08:21 Dose: 1 amp Apixaban (Eliquis -) 5 mg PO BID [facility] Last Admin: 02/12/18 10:27 Dose: 5 mg Ascorbic Acid (Vitamin C -) 500 mg PO DAILY [facility] Last Admin: 02/12/18 10:28 Dose: 500 mg Budesonide/Formoterol Fumarate (Symbicort 80/4.5mcg -) 2 puff IH BID [facility] Last Admin: 02/12/18 10:28 Dose: 2 puff Cyanocobalamin 2,000 mcg/ (Cyanocobalamin 500 mcg) 2,500 mcg PO DAILY [facility] Last Admin: 02/12/18 11:45 Dose: 2,500 mcg Docusate Sodium (Colace -) 100 mg PO HS [facility] Last Admin: 02/11/18 21:31 Dose: 100 mg Escitalopram Oxalate (Lexapro -) 10 mg PO DAILY [facility] Last Admin: 02/12/18 10:28 Dose: 10 mg Ferrous Sulfate (Feosol -) 325 mg PO DAILY [facility] Last Admin: 02/12/18 10:28 Dose: 325 mg IV Flush (Picc Line Flush) 8 ml IVPUSH PRN PRN PRN Reason: Protocol Last Admin: 02/08/18 10:18 Dose: 8 ml Cefepime HCl 2 gm/ Dextrose 100 mls @ 100 mls/hr IVPB BID [facility]; Protocol Last Admin: 02/12/18 10:29 Dose: 100 mls/hr Vancomycin HCl 1,250 mg/ (Dextrose) 250 mls @ 250 mls/2 hr IVPB Q24H [facility]; Protocol Last Admin: 02/12/18 11:44 Dose: 250 mls/2 hr Lactobacillus Acidophilus (Bacid -) 1 tab PO BID [facility] Last Admin: 02/12/18 10:27 Dose: 1 tab Levothyroxine Sodium (Synthroid -) 50 mcg PO DAILY@0700 [facility] Last Admin: 02/12/18 06:17 Dose: 50 mcg Losartan Potassium (Cozaar -) 50 mg PO DAILY [facility] Last Admin: 02/12/18 10:28 Dose: 50 mg Magnesium Chloride (Slow-Mag -) 128 mg PO DAILY [facility] Last Admin: 02/12/18 10:29 Dose: 128 mg Metoprolol Succinate (Toprol Xl -) 50 mg PO DAILY [facility] Last Admin: 02/12/18 10:28 Dose: 50 mg Miscellaneous (Lidoderm Patch Removal) 1 each MC DAILY@2200 [facility] Last Admin: 02/11/18 21:41 Dose: 1 each Oxycodone HCl (Roxicodone -) 10 mg PO Q6H PRN PRN Reason: PAIN LEVEL 6-10 Last Admin: 02/12/18 08:37 Dose: 10 mg Oxycodone HCl (Oxycontin -) 10 mg PO BID [facility] Last Admin: 02/12/18 10:46 Dose: 10 mg Pantoprazole Sodium (Protonix -) 40 mg PO DAILY [facility] Last Admin: 02/12/18 10:28 Dose: 40 mg Polyethylene Glycol (Miralax (For Daily Use) -) 17 gm PO BID [facility] Last Admin: 02/12/18 10:42 Dose: Not Given Pramipexole Dihydrochloride (Mirapex -) 0.25 mg PO BID [facility] Last Admin: 02/12/18 10:27 Dose: 0.25 mg Pregabalin (Lyrica -) 150 mg PO BID [facility] Last Admin: 02/12/18 10:46 Dose: 150 mg Rosuvastatin Calcium (Crestor -) 10 mg PO [facility] Last Admin: 02/11/18 21:31 Dose: 10 mg Senna (Senna -) 2 tab PO [facility] Last Admin: 02/11/18 21:31 Dose: 2 tab Solifenacin (Vesicare -) 10 mg PO DAILY [facility] Last Admin: 02/12/18 10:28 Dose: 10 mg - Objective Vital Signs: Vital Signs Temperature 36.8 C 02/12/18 09:00 Pulse Rate 102 H 02/12/18 09:00 Respiratory Rate 20 02/12/18 09:00 Blood Pressure 109/62 02/12/18 09:00 O2 Sat by Pulse Oximetry (%) 98 02/11/18 23:00 Constitutional: Yes: No Distress, Calm, Obese Cardiovascular: Yes: Regular Rate and Rhythm. No: Gallop, Murmur, Rub Respiratory: Yes: Regular, CTA Bilaterally. No: Rales, Rhonchi, Wheezes Gastrointestinal: Yes: Normal Bowel Sounds, Soft. No: Distention, Tenderness Extremities: Yes: WNL Edema: No Labs: CBC, BMP 02/12/18 06:40 02/12/18 06:40 INR, PTT INR 1.88 (0.82-1.09) H 02/08/18 06:45 Problem List - Problems (1) Leg pain Code(s): M79.606 - PAIN IN LEG, UNSPECIFIED Qualifiers: Laterality: bilateral Qualified Code(s): M79.604 - Pain in right leg; M79.605 - Pain in left leg (2) CAD (coronary artery disease) Code(s): I25.10 - ATHSCL HEART DISEASE OF [place] CORONARY ARTERY W/O ANG PCTRS (3) COPD (chronic obstructive pulmonary disease) Code(s): J44.9 - CHRONIC OBSTRUCTIVE PULMONARY DISEASE, UNSPECIFIED (4) HLD (hyperlipidemia) Code(s): E78.5 - HYPERLIPIDEMIA, UNSPECIFIED (5) HTN (hypertension) Code(s): I10 - ESSENTIAL (PRIMARY) HYPERTENSION Qualifiers: Hypertension type: essential hypertension Qualified Code(s): I10 - Essential (primary) hypertension (6) Hypothyroid Code(s): E03.9 - HYPOTHYROIDISM, UNSPECIFIED Assessment/Plan (1) Leg pain Assessment/Plan: -neurology and neurosurgery following -appreciate Dr Felton's assistance as well -cathy increased this admission -on oxycontin 10mg bid with prn oxycodone -continue lexapro -explained to patient that since this is chronic pain, the point of treatment was to control and not eradicate pain -continue PT, will request bid PT for patient -plan for discharge soon Code(s): M79.606 - PAIN IN LEG, UNSPECIFIED Qualifiers: Laterality: bilateral Qualified Code(s): M79.604 - Pain in right leg; M79.605 - Pain in left leg (2) CAD (coronary artery disease) Assessment/Plan: -quiescent -continue current regimen Code(s): I25.10 - ATHSCL HEART DISEASE OF [place] CORONARY ARTERY W/O ANG PCTRS (3) COPD (chronic obstructive pulmonary disease) Assessment/Plan: -continue duonebs -stable Code(s): J44.9 - CHRONIC OBSTRUCTIVE PULMONARY DISEASE, UNSPECIFIED (4) HLD (hyperlipidemia) Assessment/Plan: -continue statin Code(s): E78.5 - HYPERLIPIDEMIA, UNSPECIFIED (5) HTN (hypertension) Assessment/Plan: -continue toprol xl and losartan Code(s): I10 - ESSENTIAL (PRIMARY) HYPERTENSION Qualifiers: Hypertension type: essential hypertension Qualified Code(s): I10 - Essential (primary) hypertension (6) Hypothyroid Assessment/Plan: -continue synthroid Code(s): E03.9 - HYPOTHYROIDISM, UNSPECIFIED
[2018-02-12] MEDS: ROSUVASTATIN CA 10 MG TABLET (FP) PO SCH (21:52)
[2018-02-12] MEDS: DOCUSATE SODIUM 100 MG CAPSULE (FP) PO SCH (21:53)
[2018-02-12] MEDS: SENNOSIDES 8.6MG TABLET (FP) PO SCH (21:53)
[2018-02-13] MEDS: LEVOTHYROXINE NA 50 MCG TABLET (FP) PO SCH (06:18)
[2018-02-13] MEDS: ALBUTEROL SO4 2.5/IPRATROPIUM 0.5 INH SOL 3 ML VIAL.NEB. NEB SCH ×3 (07:25→20:50)
[2018-02-13] MEDS ORDERED: PT OWN MED DRAWER 7, Y5N ONE (10:11)
[2018-02-13] MEDS: ASCORBIC ACID 500 MG TABLET (FP) PO SCH (10:14)
[2018-02-13] MEDS: SOLIFENACIN SUCCINATE 5 MG TAB (FP) PO SCH (10:15)
[2018-02-13] MEDS: PREGABALIN 75 MG CAPSULE PO SCH ×2 (10:15→21:17)
[2018-02-13] MEDS: LACTOBACILLUS ACIDOPHILUS 1 TABLET PO SCH ×2 (10:16→21:17)
[2018-02-13] MEDS: PANTOPRAZOLE 40 MG TABLET (FP) PO SCH (10:16)
[2018-02-13] MEDS: LOSARTAN POTASSIUM 50 MG TABLET (FP) PO SCH (10:16)
[2018-02-13] MEDS: ESCITALOPRAM OXALATE 10 MG TABLET (FP) PO SCH (10:16)
[2018-02-13] MEDS: FERROUS SO4 325 MG TABLET (FP) PO SCH (10:16)
[2018-02-13] MEDS: MAGNESIUM CL 64 MG TABLET.SA PO SCH (10:16)
[2018-02-13] MEDS: BUDESONIDE/FORMETEROL FUMARATE 80/4.5 mcg INHALER IH SCH ×2 (10:16→21:18)
[2018-02-13] MEDS: POLYETHYLENE GLYCOL 3350 119 GM BTL PO SCH ×2 (10:17→21:19)
[2018-02-13] MEDS: APIXABAN 5 MG TABLET PO SCH ×2 (10:17→21:18)
[2018-02-13] MEDS: PRAMIPEXOLE DIHYDROCHLORIDE 0.25 MG TABLET PO SCH ×2 (10:18→21:18)
[2018-02-13] MEDS: oxyCODONE HCL 10 MG SUSTAINED ACTING TABLET PO SCH ×2 (10:18→21:18)
[2018-02-13] MEDS: CEFEPIME 2 GM in DEXTROSE 5%-WATER 100 ML IVPB SCH ×2 (10:18→21:19)
[2018-02-13] MEDS: CYANOCOBALAMIN 1,000 MCG TABLET (FP) PO SCH (10:20)
[2018-02-13] MEDS: VANCOMYCIN 1,250 MG in DEXTROSE 5%-WATER - 250 ML IVPB SCH (11:20)
--- NOTE | 2018-02-13 13:38 | PN ---
Progress Note, Physician Chief Complaint: Ms Davies says she feels lousy. Still with pain in back and legs. No cp, sob, n/v. - Current Medication List Current Medications: Active Medications Albuterol Sulfate (Ventolin 0.083% Nebulizer Soln -) 1 amp NEB Q4H PRN PRN Reason: SHORT OF BREATH/WHEEZING Last Admin: 02/10/18 03:16 Dose: 1 amp Albuterol/Ipratropium (Duoneb -) 1 amp NEB RTID [facility] Last Admin: 02/13/18 07:25 Dose: 1 amp Apixaban (Eliquis -) 5 mg PO BID [facility] Last Admin: 02/13/18 10:17 Dose: 5 mg Ascorbic Acid (Vitamin C -) 500 mg PO DAILY [facility] Last Admin: 02/13/18 10:14 Dose: 500 mg Budesonide/Formoterol Fumarate (Symbicort 80/4.5mcg -) 2 puff IH BID [facility] Last Admin: 02/13/18 10:16 Dose: 2 puff Cyanocobalamin (Vitamin B12 -) 2,500 mcg PO DAILY [facility] Last Admin: 02/13/18 10:20 Dose: 2,500 mcg Docusate Sodium (Colace -) 100 mg PO HS [facility] Last Admin: 02/12/18 21:53 Dose: 100 mg Escitalopram Oxalate (Lexapro -) 10 mg PO DAILY [facility] Last Admin: 02/13/18 10:16 Dose: 10 mg Ferrous Sulfate (Feosol -) 325 mg PO DAILY [facility] Last Admin: 02/13/18 10:16 Dose: 325 mg IV Flush (Picc Line Flush) 8 ml IVPUSH PRN PRN PRN Reason: Protocol Last Admin: 02/08/18 10:18 Dose: 8 ml Cefepime HCl 2 gm/ Dextrose 100 mls @ 100 mls/hr IVPB BID [facility]; Protocol Last Admin: 02/13/18 10:18 Dose: 100 mls/hr Vancomycin HCl 1,250 mg/ (Dextrose) 250 mls @ 250 mls/2 hr IVPB Q24H [facility]; Protocol Last Admin: 02/13/18 11:20 Dose: 250 mls/2 hr Lactobacillus Acidophilus (Bacid -) 1 tab PO BID [facility] Last Admin: 02/13/18 10:16 Dose: 1 tab Levothyroxine Sodium (Synthroid -) 50 mcg PO DAILY@0700 [facility] Last Admin: 02/13/18 06:18 Dose: 50 mcg Losartan Potassium (Cozaar -) 50 mg PO DAILY [facility] Last Admin: 02/13/18 10:16 Dose: 50 mg Magnesium Chloride (Slow-Mag -) 128 mg PO DAILY [facility] Last Admin: 02/13/18 10:16 Dose: 128 mg Metoprolol Succinate (Toprol Xl -) 50 mg PO DAILY [facility] Last Admin: 02/13/18 10:16 Dose: 50 mg Oxycodone HCl (Roxicodone -) 10 mg PO Q6H PRN PRN Reason: PAIN LEVEL 6-10 Last Admin: 02/12/18 08:37 Dose: 10 mg Oxycodone HCl (Oxycontin -) 10 mg PO BID [facility] Last Admin: 02/13/18 10:18 Dose: 10 mg Pantoprazole Sodium (Protonix -) 40 mg PO DAILY [facility] Last Admin: 02/13/18 10:16 Dose: 40 mg Polyethylene Glycol (Miralax (For Daily Use) -) 17 gm PO BID [facility] Last Admin: 02/13/18 10:17 Dose: Not Given Pramipexole Dihydrochloride (Mirapex -) 0.25 mg PO BID [facility] Last Admin: 02/13/18 10:18 Dose: 0.25 mg Pregabalin (Lyrica -) 150 mg PO BID [facility] Last Admin: 02/13/18 10:15 Dose: 150 mg Rosuvastatin Calcium (Crestor -) 10 mg PO [facility] Last Admin: 02/12/18 21:52 Dose: 10 mg Senna (Senna -) 2 tab PO [facility] Last Admin: 02/12/18 21:53 Dose: 2 tab Solifenacin (Vesicare -) 10 mg PO DAILY [facility] Last Admin: 02/13/18 10:15 Dose: 10 mg - Objective Vital Signs: Vital Signs Temperature 36.9 C 02/13/18 10:00 Pulse Rate 78 02/13/18 10:00 Respiratory Rate 20 02/13/18 10:00 Blood Pressure 118/75 02/13/18 10:00 O2 Sat by Pulse Oximetry (%) 95 02/12/18 21:00 Constitutional: Yes: Well Nourished, No Distress, Calm Cardiovascular: Yes: Regular Rate and Rhythm. No: Gallop, Murmur, Rub Respiratory: Yes: Regular, CTA Bilaterally. No: Rales, Rhonchi, Wheezes Gastrointestinal: Yes: Normal Bowel Sounds, Soft. No: Distention, Tenderness Extremities: Yes: WNL Edema: No Labs: CBC, BMP 02/12/18 06:40 02/12/18 06:40 INR, PTT INR 1.88 (0.82-1.09) H 02/08/18 06:45 Problem List - Problems (1) Leg pain Code(s): M79.606 - PAIN IN LEG, UNSPECIFIED Qualifiers: Laterality: bilateral Qualified Code(s): M79.604 - Pain in right leg; M79.605 - Pain in left leg (2) CAD (coronary artery disease) Code(s): I25.10 - ATHSCL HEART DISEASE OF [place] CORONARY ARTERY W/O ANG PCTRS (3) COPD (chronic obstructive pulmonary disease) Code(s): J44.9 - CHRONIC OBSTRUCTIVE PULMONARY DISEASE, UNSPECIFIED (4) HLD (hyperlipidemia) Code(s): E78.5 - HYPERLIPIDEMIA, UNSPECIFIED (5) HTN (hypertension) Code(s): I10 - ESSENTIAL (PRIMARY) HYPERTENSION Qualifiers: Hypertension type: essential hypertension Qualified Code(s): I10 - Essential (primary) hypertension (6) Hypothyroid Code(s): E03.9 - HYPOTHYROIDISM, UNSPECIFIED Assessment/Plan (1) Leg pain Assessment/Plan: -continue current regimen -explained to patient again goal of pain control -encouraged her to continue to work with PT Code(s): M79.606 - PAIN IN LEG, UNSPECIFIED Qualifiers: Laterality: bilateral Qualified Code(s): M79.604 - Pain in right leg; M79.605 - Pain in left leg (2) CAD (coronary artery disease) Assessment/Plan: -quiescent -continue current regimen Code(s): I25.10 - ATHSCL HEART DISEASE OF [place] CORONARY ARTERY W/O ANG PCTRS (3) COPD (chronic obstructive pulmonary disease) Assessment/Plan: -continue duonebs -stable Code(s): J44.9 - CHRONIC OBSTRUCTIVE PULMONARY DISEASE, UNSPECIFIED (4) HLD (hyperlipidemia) Assessment/Plan: -continue statin Code(s): E78.5 - HYPERLIPIDEMIA, UNSPECIFIED (5) HTN (hypertension) Assessment/Plan: -continue toprol xl and losartan Code(s): I10 - ESSENTIAL (PRIMARY) HYPERTENSION Qualifiers: Hypertension type: essential hypertension Qualified Code(s): I10 - Essential (primary) hypertension (6) Hypothyroid Assessment/Plan: -continue synthroid Code(s): E03.9 - HYPOTHYROIDISM, UNSPECIFIED
[2018-02-13] MEDS: ROSUVASTATIN CA 10 MG TABLET (FP) PO SCH (21:17)
[2018-02-13] MEDS: SENNOSIDES 8.6MG TABLET (FP) PO SCH (21:18)
[2018-02-13] MEDS: DOCUSATE SODIUM 100 MG CAPSULE (FP) PO SCH (21:19)
[2018-02-14] MEDS: LEVOTHYROXINE NA 50 MCG TABLET (FP) PO SCH (06:03)
[2018-02-14] MEDS: ALBUTEROL SO4 2.5/IPRATROPIUM 0.5 INH SOL 3 ML VIAL.NEB. NEB SCH ×3 (08:06→20:50)
[2018-02-14 08:29] LABS: BASO % 0.5 % (0-2.0); EOS % 4.2 % (0-4.5); HEMATOCRIT 26.3 % (32.4-45.2); HEMOGLOBIN 8.9 GM/dL (10.7-15.3); LYMPH % 19.2 % (8-40); MCH 28.6 pg (25.7-33.7); MCHC 33.7 g/dl (32.0-36.0); MEAN CELL VOLUME 84.9 fl (80-96); MEAN PLT VOLUME 7.2 fl (7.5-11.1); MONO % 9.4 % (3.8-10.2); NEUT % 66.7 % (42.8-82.8); PLATELET COUNT 247 K/MM3 (134-434); RBC 3.09 M/mm3 (3.60-5.2); RDW 13.9 % (11.6-15.6); WHITE BLOOD COUNT 5.6 K/mm3 (4.0-10.0)
[2018-02-14 08:48] LABS: CHLORIDE 102 mmol/L (98-107); POTASSIUM 4.1 mmol/L (3.5-5.1); SODIUM 139 mmol/L (136-145)
[2018-02-14 08:56] LABS: ANION GAP 8 (8-16); BLOOD UREA NITROGEN 13 mg/dL (7-18); CALCIUM 9.6 mg/dL (8.5-10.1); CO2 29 mmol/L (21-32); CREATININE 0.7 mg/dL (0.55-1.02); GLUCOSE,RANDOM 86 mg/dL (74-106); MAGNESIUM 1.5 mg/dL (1.8-2.4); PHOSPHOROUS 3.6 mg/dL (2.5-4.9)
[2018-02-14] MEDS ORDERED: PT OWN MED DRAWER 7, Y5N ONE ×3 (09:57→22:55)
[2018-02-14] MEDS: PREGABALIN 75 MG CAPSULE PO SCH (09:58)
[2018-02-14] MEDS: LOSARTAN POTASSIUM 50 MG TABLET (FP) PO SCH (09:59)
[2018-02-14] MEDS: ESCITALOPRAM OXALATE 10 MG TABLET (FP) PO SCH (09:59)
[2018-02-14] MEDS: FERROUS SO4 325 MG TABLET (FP) PO SCH (09:59)
[2018-02-14] MEDS: LACTOBACILLUS ACIDOPHILUS 1 TABLET PO SCH ×2 (09:59→23:02)
[2018-02-14] MEDS: ASCORBIC ACID 500 MG TABLET (FP) PO SCH (10:00)
[2018-02-14] MEDS: CYANOCOBALAMIN 1,000 MCG TABLET (FP) PO SCH (10:00)
[2018-02-14] MEDS: SOLIFENACIN SUCCINATE 5 MG TAB (FP) PO SCH (10:01)
[2018-02-14] MEDS: PANTOPRAZOLE 40 MG TABLET (FP) PO SCH (10:01)
[2018-02-14] MEDS: MAGNESIUM CL 64 MG TABLET.SA PO SCH (10:02)
[2018-02-14] MEDS: APIXABAN 5 MG TABLET PO SCH ×2 (10:02→23:04)
[2018-02-14] MEDS: PRAMIPEXOLE DIHYDROCHLORIDE 0.25 MG TABLET PO SCH ×2 (10:02→23:04)
[2018-02-14] MEDS: oxyCODONE HCL 10 MG SUSTAINED ACTING TABLET PO SCH ×2 (10:03→23:02)
[2018-02-14] MEDS: VANCOMYCIN 1,250 MG in DEXTROSE 5%-WATER - 250 ML IVPB SCH (10:03)
[2018-02-14] MEDS: BUDESONIDE/FORMETEROL FUMARATE 80/4.5 mcg INHALER IH SCH ×2 (10:03→23:06)
[2018-02-14] MEDS: CEFEPIME 2 GM in DEXTROSE 5%-WATER 100 ML IVPB SCH (10:03)
[2018-02-14] MEDS: POLYETHYLENE GLYCOL 3350 119 GM BTL PO SCH ×2 (10:08→23:04)
--- NOTE | 2018-02-14 10:48 | PN ---
Progress Note, Physician Chief Complaint: ID Asked to see this elderly female getting Vancomycin and Cefepime and wile on antibiotics gets erythema of the right blackwell ?? No fever chills - Current Medication List Current Medications: Active Medications Albuterol Sulfate (Ventolin 0.083% Nebulizer Soln -) 1 amp NEB Q4H PRN PRN Reason: SHORT OF BREATH/WHEEZING Last Admin: 02/10/18 03:16 Dose: 1 amp Albuterol/Ipratropium (Duoneb -) 1 amp NEB RTID [facility] Last Admin: 02/14/18 08:06 Dose: 1 amp Apixaban (Eliquis -) 5 mg PO BID [facility] Last Admin: 02/14/18 10:02 Dose: 5 mg Ascorbic Acid (Vitamin C -) 500 mg PO DAILY [facility] Last Admin: 02/14/18 10:00 Dose: 500 mg Budesonide/Formoterol Fumarate (Symbicort 80/4.5mcg -) 2 puff IH BID [facility] Last Admin: 02/14/18 10:03 Dose: 2 puff Cyanocobalamin (Vitamin B12 -) 2,500 mcg PO DAILY [facility] Last Admin: 02/14/18 10:00 Dose: 2,500 mcg Docusate Sodium (Colace -) 100 mg PO HS [facility] Last Admin: 02/13/18 21:19 Dose: Not Given Escitalopram Oxalate (Lexapro -) 10 mg PO DAILY [facility] Last Admin: 02/14/18 09:59 Dose: 10 mg Ferrous Sulfate (Feosol -) 325 mg PO DAILY [facility] Last Admin: 02/14/18 09:59 Dose: 325 mg IV Flush (Picc Line Flush) 8 ml IVPUSH PRN PRN PRN Reason: Protocol Last Admin: 02/08/18 10:18 Dose: 8 ml Cefepime HCl 2 gm/ Dextrose 100 mls @ 100 mls/hr IVPB BID [facility]; Protocol Last Admin: 02/14/18 10:03 Dose: 100 mls/hr Vancomycin HCl 1,250 mg/ (Dextrose) 250 mls @ 250 mls/2 hr IVPB Q24H [facility]; Protocol Last Admin: 02/14/18 10:03 Dose: 250 mls/2 hr Lactobacillus Acidophilus (Bacid -) 1 tab PO BID [facility] Last Admin: 02/14/18 09:59 Dose: 1 tab Levothyroxine Sodium (Synthroid -) 50 mcg PO DAILY@0700 [facility] Last Admin: 02/14/18 06:03 Dose: 50 mcg Losartan Potassium (Cozaar -) 50 mg PO DAILY [facility] Last Admin: 02/14/18 09:59 Dose: 50 mg Magnesium Chloride (Slow-Mag -) 128 mg PO DAILY [facility] Last Admin: 02/14/18 10:02 Dose: 128 mg Metoprolol Succinate (Toprol Xl -) 50 mg PO DAILY [facility] Last Admin: 02/14/18 09:59 Dose: 50 mg Oxycodone HCl (Roxicodone -) 10 mg PO Q6H PRN PRN Reason: PAIN LEVEL 6-10 Last Admin: 02/12/18 08:37 Dose: 10 mg Oxycodone HCl (Oxycontin -) 10 mg PO BID [facility] Last Admin: 02/14/18 10:03 Dose: 10 mg Pantoprazole Sodium (Protonix -) 40 mg PO DAILY [facility] Last Admin: 02/14/18 10:01 Dose: 40 mg Polyethylene Glycol (Miralax (For Daily Use) -) 17 gm PO BID [facility] Last Admin: 02/14/18 10:08 Dose: 17 gm Pramipexole Dihydrochloride (Mirapex -) 0.25 mg PO BID [facility] Last Admin: 02/14/18 10:02 Dose: 0.25 mg Pregabalin (Lyrica -) 150 mg PO BID [facility] Last Admin: 02/14/18 09:58 Dose: 150 mg Rosuvastatin Calcium (Crestor -) 10 mg PO [facility] Last Admin: 02/13/18 21:17 Dose: 10 mg Senna (Senna -) 2 tab PO [facility] Last Admin: 02/13/18 21:18 Dose: Not Given Solifenacin (Vesicare -) 10 mg PO DAILY [facility] Last Admin: 02/14/18 10:01 Dose: 10 mg - Objective Vital Signs: Vital Signs Temperature 98 F 02/14/18 05:20 Pulse Rate 72 02/14/18 05:20 Respiratory Rate 20 02/14/18 05:20 Blood Pressure 116/57 02/14/18 05:20 O2 Sat by Pulse Oximetry (%) 94 L 02/13/18 21:00 Constitutional: Yes: Well Nourished, No Distress Neck: Yes: WNL, Supple Cardiovascular: Yes: Regular Rate and Rhythm, S1, S2. No: Murmur Respiratory: Yes: WNL, Regular, CTA Bilaterally Gastrointestinal: Yes: WNL, Normal Bowel Sounds, Soft. No: Tenderness, Tenderness, Epigastrium Extremities: Yes: Other (erythema right blackwell tender flat not raised) Labs: CBC, BMP 02/14/18 07:00 02/14/18 07:00 INR, PTT INR 1.88 (0.82-1.09) H 02/08/18 06:45 Assessment/Plan Laboratory Tests 02/10/18 02/11/18 02/12/18 07:30 06:50 06:40 WBC RBC Plt Count ESR 96 H BUN Creatinine Total Protein 6.3 L Albumin 2.4 L Vancomycin Pre-Dose 10.68 H 02/14/18 02/14/18 07:00 07:00 WBC 5.6 RBC 3.09 L Plt Count 247 ESR BUN 13 Creatinine 0.7 Total Protein Albumin Vancomycin Pre-Dose Assessment Differential diagnosis includes Cellultiis Leukocytoclastic vasculitis E Nodosum Plan Switch to Daptomycin and Meropenem and see if improves IF no improvement would biopsy ? Give steroids if no improvement with switch Work up anemia IPEP DALTON Tucker MD
[2018-02-14] MEDS: MEROPENEM 500 MG in SODIUM CHLORIDE 100 ML IVPB SCH ×2 (12:25→18:32)
[2018-02-14] MEDS: DAPTOMYCIN 600 MG in SODIUM CHLORIDE 100 ML IVPB SCH (14:07)
[2018-02-14] MEDS ORDERED: oxyCODONE HCL 5 MG TABLET PO PRN (19:03)
--- NOTE | 2018-02-14 19:23 | PN ---
Progress Note, Physician Chief Complaint: Patient still c/o back pain and LE weakness, no bowel bladder incontinence, yesterday son called that patient is more confused since incresed the dose of Lyrica - Current Medication List Current Medications: Active Medications Albuterol Sulfate (Ventolin 0.083% Nebulizer Soln -) 1 amp NEB Q4H PRN PRN Reason: SHORT OF BREATH/WHEEZING Last Admin: 02/10/18 03:16 Dose: 1 amp Albuterol/Ipratropium (Duoneb -) 1 amp NEB RTID [facility] Last Admin: 02/14/18 14:20 Dose: 1 amp Apixaban (Eliquis -) 5 mg PO BID [facility] Last Admin: 02/14/18 10:02 Dose: 5 mg Ascorbic Acid (Vitamin C -) 500 mg PO DAILY [facility] Last Admin: 02/14/18 10:00 Dose: 500 mg Budesonide/Formoterol Fumarate (Symbicort 80/4.5mcg -) 2 puff IH BID [facility] Last Admin: 02/14/18 10:03 Dose: 2 puff Cyanocobalamin (Vitamin B12 -) 2,500 mcg PO DAILY [facility] Last Admin: 02/14/18 10:00 Dose: 2,500 mcg Docusate Sodium (Colace -) 100 mg PO HS [facility] Last Admin: 02/13/18 21:19 Dose: Not Given Escitalopram Oxalate (Lexapro -) 10 mg PO DAILY [facility] Last Admin: 02/14/18 09:59 Dose: 10 mg Ferrous Sulfate (Feosol -) 325 mg PO DAILY [facility] Last Admin: 02/14/18 09:59 Dose: 325 mg IV Flush (Picc Line Flush) 8 ml IVPUSH PRN PRN PRN Reason: Protocol Last Admin: 02/08/18 10:18 Dose: 8 ml Daptomycin 600 mg/ Sodium (Chloride) 100 mls @ 200 mls/hr IVPB DAILY [facility] Last Admin: 02/14/18 14:07 Dose: 200 mls/hr Meropenem 500 mg/ Sodium (Chloride) 100 mls @ 200 mls/hr IVPB Q8H-IV [facility] Last Admin: 02/14/18 18:32 Dose: 200 mls/hr Lactobacillus Acidophilus (Bacid -) 1 tab PO BID [facility] Last Admin: 02/14/18 09:59 Dose: 1 tab Levothyroxine Sodium (Synthroid -) 50 mcg PO DAILY@0700 [facility] Last Admin: 02/14/18 06:03 Dose: 50 mcg Losartan Potassium (Cozaar -) 50 mg PO DAILY [facility] Last Admin: 02/14/18 09:59 Dose: 50 mg Magnesium Chloride (Slow-Mag -) 128 mg PO DAILY [facility] Last Admin: 02/14/18 10:02 Dose: 128 mg Metoprolol Succinate (Toprol Xl -) 50 mg PO DAILY [facility] Last Admin: 02/14/18 09:59 Dose: 50 mg Oxycodone HCl (Oxycontin -) 10 mg PO BID [facility] Last Admin: 02/14/18 10:03 Dose: 10 mg Oxycodone HCl (Roxicodone -) 10 mg PO Q6H PRN PRN Reason: PAIN LEVEL 6-10 Pantoprazole Sodium (Protonix -) 40 mg PO DAILY [facility] Last Admin: 02/14/18 10:01 Dose: 40 mg Polyethylene Glycol (Miralax (For Daily Use) -) 17 gm PO BID [facility] Last Admin: 02/14/18 10:08 Dose: 17 gm Pramipexole Dihydrochloride (Mirapex -) 0.25 mg PO BID [facility] Last Admin: 02/14/18 10:02 Dose: 0.25 mg Pregabalin (Lyrica -) 100 mg PO BID [facility] Rosuvastatin Calcium (Crestor -) 10 mg PO HS [facility] Last Admin: 02/13/18 21:17 Dose: 10 mg Senna (Senna -) 2 tab PO [facility] Last Admin: 02/13/18 21:18 Dose: Not Given Solifenacin (Vesicare -) 10 mg PO DAILY [facility] Last Admin: 02/14/18 10:01 Dose: 10 mg - Objective Vital Signs: Vital Signs Temperature 98.1 F 02/14/18 18:31 Pulse Rate 91 H 02/14/18 18:31 Respiratory Rate 20 02/14/18 18:31 Blood Pressure 120/61 02/14/18 18:31 O2 Sat by Pulse Oximetry (%) 94 L 02/14/18 09:00 Elderly F c/o back pain and LE numbness HEENT: Mm moist, no anemia, PERRLA EOMI NECK; No JVD No Bruit CHEST: CTA B/L CVS; S1S2 R no m/g/r ABD: No distention non tender EXT: spinal tenderness +, Rt leg large erythmatous inflamed are [employer]: AOx3, cranial N Normal B/L LE weakness Rt> Left Labs: CBC, BMP 02/14/18 07:00 02/14/18 07:00 INR, PTT INR 1.88 (0.82-1.09) H 02/08/18 06:45 Problem List - Problems (1) Back pain Assessment/Plan: 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 Code(s): M54.9 - DORSALGIA, UNSPECIFIED Qualifiers: Back pain location: low back pain Chronicity: unspecified Back pain laterality: bilateral Sciatica presence: with sciatica Sciatica laterality: sciatica of right side Qualified Code(s): M54.41 - Lumbago with sciatica, right side (2) CAD (coronary artery disease) Assessment/Plan: No active issue cont all home meds Code(s): I25.10 - ATHSCL HEART DISEASE OF [place] CORONARY ARTERY W/O ANG PCTRS (3) HTN (hypertension) Assessment/Plan: Well controlled cont all home meds Code(s): I10 - ESSENTIAL (PRIMARY) HYPERTENSION Qualifiers: Hypertension type: essential hypertension Qualified Code(s): I10 - Essential (primary) hypertension (4) HLD (hyperlipidemia) Assessment/Plan: Cont Statin therapy Code(s): E78.5 - HYPERLIPIDEMIA, UNSPECIFIED (5) Hypothyroid Assessment/Plan: LDL 1.7 cont current dose of Levothyroxine Code(s): E03.9 - HYPOTHYROIDISM, UNSPECIFIED (6) Afib Assessment/Plan: Rate controlled on AC Code(s): I48.91 - UNSPECIFIED ATRIAL FIBRILLATION Qualifiers: Atrial fibrillation type: chronic Qualified Code(s): I48.2 - Chronic atrial fibrillation (7) COPD (chronic obstructive pulmonary disease) Assessment/Plan: Stable cont current meds add incentive spectrometry. Code(s): J44.9 - CHRONIC OBSTRUCTIVE PULMONARY DISEASE, UNSPECIFIED (8) Discitis of lumbosacral region Assessment/Plan: Empiric Vancomycin and Cefepime , rpt MRI spine conforms OM ESR and CRP is trending normal, evaluated by ID, Neurosurgery and Neurologist , non surgical management. Code(s): M46.47 - DISCITIS, UNSPECIFIED, LUMBOSACRAL REGION (9) Erythema of lower extremity Assessment/Plan: Patient devoled inflamed erythematous patch on Rt LE looks like cellulitis will discuss with Id as patient is on Broad spectrum abx Code(s): L53.9 - ERYTHEMATOUS CONDITION, UNSPECIFIED
[2018-02-14] MEDS: PREGABALIN 50 MG CAPSULE PO SCH (23:02)
[2018-02-14] MEDS: ROSUVASTATIN CA 10 MG TABLET (FP) PO SCH (23:03)
[2018-02-14] MEDS: DOCUSATE SODIUM 100 MG CAPSULE (FP) PO SCH (23:03)
[2018-02-14] MEDS: SENNOSIDES 8.6MG TABLET (FP) PO SCH (23:03)
[2018-02-15] MEDS ORDERED: PT OWN MED DRAWER 7, Y5N ONE ×5 (01:59→21:49)
[2018-02-15] MEDS: MEROPENEM 500 MG in SODIUM CHLORIDE 100 ML IVPB SCH ×3 (02:15→17:30)
[2018-02-15] MEDS: LEVOTHYROXINE NA 50 MCG TABLET (FP) PO SCH (06:17)
[2018-02-15 08:04] LABS: BASO % 0.5 % (0-2.0); HEMATOCRIT 27.5 % (32.4-45.2); HEMOGLOBIN 9.5 GM/dL (10.7-15.3); LYMPH % 26.1 % (8-40); MCH 29.1 pg (25.7-33.7); MCHC 34.4 g/dl (32.0-36.0); MEAN CELL VOLUME 84.5 fl (80-96); MEAN PLT VOLUME 7.6 fl (7.5-11.1); MONO % 9.7 % (3.8-10.2); NEUT % 58.7 % (42.8-82.8); PLATELET COUNT 268 K/MM3 (134-434); RBC 3.26 M/mm3 (3.60-5.2); RDW 14.6 % (11.6-15.6); WHITE BLOOD COUNT 4.8 K/mm3 (4.0-10.0)
[2018-02-15] MEDS: ALBUTEROL SO4 2.5/IPRATROPIUM 0.5 INH SOL 3 ML VIAL.NEB. NEB SCH ×2 (08:05→13:50)
[2018-02-15 08:29] LABS: CHLORIDE 103 mmol/L (98-107); POTASSIUM 4.4 mmol/L (3.5-5.1); SODIUM 139 mmol/L (136-145)
[2018-02-15 08:36] LABS: ALBUMIN 2.4 g/dl (3.4-5.0); ALK PHOS 72 U/L (45-117); ANION GAP 6 (8-16); BILIRUBIN,TOTAL 0.2 mg/dL (0.2-1.0); BLOOD UREA NITROGEN 16 mg/dL (7-18); CALCIUM 9.9 mg/dL (8.5-10.1); CO2 30 mmol/L (21-32); CREATININE 0.8 mg/dL (0.55-1.02); GLUCOSE,RANDOM 87 mg/dL (74-106); SGOT/AST 12 U/L (15-37); SGPT/ALT 21 U/L (12-78); TOT PROT 6.6 g/dl (6.4-8.2)
[2018-02-15] MEDS: LACTOBACILLUS ACIDOPHILUS 1 TABLET PO SCH ×2 (10:26→21:53)
[2018-02-15] MEDS: SOLIFENACIN SUCCINATE 5 MG TAB (FP) PO SCH (10:26)
[2018-02-15] MEDS: oxyCODONE HCL 10 MG SUSTAINED ACTING TABLET PO SCH ×2 (10:27→21:52)
[2018-02-15] MEDS: PANTOPRAZOLE 40 MG TABLET (FP) PO SCH (10:27)
[2018-02-15] MEDS: CYANOCOBALAMIN 1,000 MCG TABLET (FP) PO SCH (10:27)
[2018-02-15] MEDS: PREGABALIN 50 MG CAPSULE PO SCH ×2 (10:27→21:53)
[2018-02-15] MEDS: ESCITALOPRAM OXALATE 10 MG TABLET (FP) PO SCH (10:27)
[2018-02-15] MEDS: BUDESONIDE/FORMETEROL FUMARATE 80/4.5 mcg INHALER IH SCH ×2 (10:28→21:53)
[2018-02-15] MEDS: ASCORBIC ACID 500 MG TABLET (FP) PO SCH (10:28)
[2018-02-15] MEDS: LOSARTAN POTASSIUM 50 MG TABLET (FP) PO SCH (10:28)
[2018-02-15] MEDS: FERROUS SO4 325 MG TABLET (FP) PO SCH (10:28)
[2018-02-15] MEDS: PRAMIPEXOLE DIHYDROCHLORIDE 0.25 MG TABLET PO SCH ×2 (10:29→21:54)
[2018-02-15] MEDS: MAGNESIUM CL 64 MG TABLET.SA PO SCH (10:29)
[2018-02-15] MEDS: APIXABAN 5 MG TABLET PO SCH ×2 (10:29→21:54)
[2018-02-15] MEDS: POLYETHYLENE GLYCOL 3350 119 GM BTL PO SCH ×2 (10:36→21:54)
--- NOTE | 2018-02-15 10:44 | PN ---
Progress Note, Physician Chief Complaint: Patient still c/o back pain and LE weakness, no bowel bladder incontinence, yesterday son called that patient is more confused since incresed the dose of Lyrica - Current Medication List Current Medications: Active Medications Albuterol/Ipratropium (Duoneb -) 1 amp NEB RTID [facility] Last Admin: 02/15/18 08:05 Dose: 1 amp Apixaban (Eliquis -) 5 mg PO BID [facility] Last Admin: 02/15/18 10:29 Dose: 5 mg Ascorbic Acid (Vitamin C -) 500 mg PO DAILY [facility] [place] Last Admin: 02/15/18 10:28 Dose: 500 mg Budesonide/Formoterol Fumarate (Symbicort 80/4.5mcg -) 2 puff IH BID [facility] [place] Last Admin: 02/15/18 10:28 Dose: 2 puff Cyanocobalamin (Vitamin B12 -) 2,500 mcg PO DAILY [facility] [place] Last Admin: 02/15/18 10:27 Dose: 2,500 mcg Docusate Sodium (Colace -) 100 mg PO HS [facility] [place] Last Admin: 02/14/18 23:03 Dose: 100 mg Escitalopram Oxalate (Lexapro -) 10 mg PO DAILY [facility] [place] Last Admin: 02/15/18 10:27 Dose: 10 mg Ferrous Sulfate (Feosol -) 325 mg PO DAILY [facility] [place] Last Admin: 02/15/18 10:28 Dose: 325 mg IV Flush (Picc Line Flush) 8 ml IVPUSH PRN PRN PRN Reason: Protocol Last Admin: 02/08/18 10:18 Dose: 8 ml Daptomycin 600 mg/ Sodium (Chloride) 100 mls @ 200 mls/hr IVPB DAILY [facility] [place] Last Admin: 02/14/18 14:07 Dose: 200 mls/hr Meropenem 500 mg/ Sodium (Chloride) 100 mls @ 200 mls/hr IVPB Q8H-IV [facility] [place] Last Admin: 02/15/18 10:28 Dose: 200 mls/hr Lactobacillus Acidophilus (Bacid -) 1 tab PO BID [facility] [place] Last Admin: 02/15/18 10:26 Dose: 1 tab Levothyroxine Sodium (Synthroid -) 50 mcg PO DAILY@0700 [facility] Last Admin: 02/15/18 06:17 Dose: 50 mcg Losartan Potassium (Cozaar -) 50 mg PO DAILY [facility] Last Admin: 02/15/18 10:28 Dose: 50 mg Magnesium Chloride (Slow-Mag -) 128 mg PO DAILY [facility] [place] Last Admin: 02/15/18 10:29 Dose: 128 mg Metoprolol Succinate (Toprol Xl -) 50 mg PO DAILY [facility] Last Admin: 02/15/18 10:28 Dose: 50 mg Oxycodone HCl (Oxycontin -) 10 mg PO BID [facility] Last Admin: 02/15/18 10:27 Dose: 10 mg Oxycodone HCl (Roxicodone -) 10 mg PO Q6H PRN PRN Reason: PAIN LEVEL 6-10 Pantoprazole Sodium (Protonix -) 40 mg PO DAILY [facility] Last Admin: 02/15/18 10:27 Dose: 40 mg Polyethylene Glycol (Miralax (For Daily Use) -) 17 gm PO BID [facility] [place] Last Admin: 02/15/18 10:36 Dose: 17 gm Pramipexole Dihydrochloride (Mirapex -) 0.25 mg PO BID [facility] Last Admin: 02/15/18 10:29 Dose: 0.25 mg Pregabalin (Lyrica -) 100 mg PO BID [facility] Last Admin: 02/15/18 10:27 Dose: 100 mg Rosuvastatin Calcium (Crestor -) 10 mg PO HS [facility] Last Admin: 02/14/18 23:03 Dose: 10 mg Senna (Senna -) 2 tab PO [facility] Last Admin: 02/14/18 23:03 Dose: 2 tab Solifenacin (Vesicare -) 10 mg PO DAILY [facility] Last Admin: 02/15/18 10:26 Dose: 10 mg - Objective Vital Signs: Vital Signs Temperature 97.8 F 02/15/18 10:00 Pulse Rate 94 H 02/15/18 10:00 Respiratory Rate 18 02/15/18 10:00 Blood Pressure 126/56 02/15/18 10:00 O2 Sat by Pulse Oximetry (%) 93 L 02/14/18 21:00 Elderly F c/o back pain and LE numbness HEENT: Mm moist, no anemia, PERRLA EOMI NECK; No JVD No Bruit CHEST: CTA B/L CVS; S1S2 R no m/g/r ABD: No distention non tender EXT: spinal tenderness +, Rt leg large erythmatous inflamed are LATHE TENDER: AOx3, cranial N Normal B/L LE weakness Rt> Left Labs: CBC, BMP 02/15/18 07:00 02/15/18 07:00 INR, PTT INR 1.88 (0.82-1.09) H 02/08/18 06:45 Problem List - Problems (1) Back pain Assessment/Plan: 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 Code(s): M54.9 - DORSALGIA, UNSPECIFIED Qualifiers: Back pain location: low back pain Chronicity: unspecified Back pain laterality: bilateral Sciatica presence: with sciatica Sciatica laterality: sciatica of right side Qualified Code(s): M54.41 - Lumbago with sciatica, right side (2) CAD (coronary artery disease) Assessment/Plan: No active issue cont all home meds Code(s): I25.10 - ATHSCL HEART DISEASE OF [place] CORONARY ARTERY W/O ANG PCTRS (3) HTN (hypertension) Assessment/Plan: Well controlled cont all home meds Code(s): I10 - ESSENTIAL (PRIMARY) HYPERTENSION Qualifiers: Hypertension type: essential hypertension Qualified Code(s): I10 - Essential (primary) hypertension (4) HLD (hyperlipidemia) Assessment/Plan: Cont Statin therapy Code(s): E78.5 - HYPERLIPIDEMIA, UNSPECIFIED (5) Hypothyroid Assessment/Plan: LDL 1.7 cont current dose of Levothyroxine Code(s): E03.9 - HYPOTHYROIDISM, UNSPECIFIED (6) Afib Assessment/Plan: Rate controlled on AC Code(s): I48.91 - UNSPECIFIED ATRIAL FIBRILLATION Qualifiers: Atrial fibrillation type: chronic Qualified Code(s): I48.2 - Chronic atrial fibrillation (7) COPD (chronic obstructive pulmonary disease) Assessment/Plan: Stable cont current meds add incentive spectrometry. Code(s): J44.9 - CHRONIC OBSTRUCTIVE PULMONARY DISEASE, UNSPECIFIED (8) Discitis of lumbosacral region Assessment/Plan: Empiric Vancomycin and Cefepime , rpt MRI spine conforms OM ESR and CRP is trending normal, evaluated by ID, Neurosurgery and Neurologist , non surgical management. Code(s): M46.47 - DISCITIS, UNSPECIFIED, LUMBOSACRAL REGION (9) Erythema of lower extremity Assessment/Plan: Patient devoled inflamed erythematous patch on Rt LE looks like cellulitis will discuss with Id switched to Daptomycin and Meropenem Code(s): L53.9 - ERYTHEMATOUS CONDITION, UNSPECIFIED
[2018-02-15 10:57] LABS: ERYTHROCYTE SEDIMENTATION RATE 97 mm/hr (0-30)
[2018-02-15] MEDS: DAPTOMYCIN 600 MG in SODIUM CHLORIDE 100 ML IVPB SCH (11:58)
[2018-02-15] MEDS: ROSUVASTATIN CA 10 MG TABLET (FP) PO SCH (21:53)
[2018-02-15] MEDS: SENNOSIDES 8.6MG TABLET (FP) PO SCH (21:53)
[2018-02-15] MEDS: DOCUSATE SODIUM 100 MG CAPSULE (FP) PO SCH (21:53)
[2018-02-16] MEDS ORDERED: PT OWN MED DRAWER 7, Y5N ONE ×2 (02:09→21:12)
[2018-02-16] MEDS: MEROPENEM 500 MG in SODIUM CHLORIDE 100 ML IVPB SCH ×3 (02:15→17:21)
[2018-02-16] MEDS: PICC LINE 8 ML FLUSH PROTOCOL IVPUSH PRN (02:57)
[2018-02-16] MEDS: LEVOTHYROXINE NA 50 MCG TABLET (FP) PO SCH (06:15)
[2018-02-16 08:11] LABS: BASO % 0.6 % (0-2.0); EOS % 4.9 % (0-4.5); HEMATOCRIT 27.6 % (32.4-45.2); HEMOGLOBIN 9.2 GM/dL (10.7-15.3); LYMPH % 35.3 % (8-40); MCH 28.6 pg (25.7-33.7); MCHC 33.4 g/dl (32.0-36.0); MEAN CELL VOLUME 85.6 fl (80-96); MEAN PLT VOLUME 7.7 fl (7.5-11.1); NEUT % 49.2 % (42.8-82.8); PLATELET COUNT 281 K/MM3 (134-434); RBC 3.23 M/mm3 (3.60-5.2); RDW 14.7 % (11.6-15.6); WHITE BLOOD COUNT 4.6 K/mm3 (4.0-10.0)
--- NOTE | 2018-02-16 08:21 | PN ---
Progress Note, Physician Chief Complaint: ID Dapto and Meropenem day 2 Complains of burning lower leg - Current Medication List Current Medications: Active Medications Apixaban (Eliquis -) 5 mg PO BID [facility] Last Admin: 02/15/18 21:54 Dose: 5 mg Ascorbic Acid (Vitamin C -) 500 mg PO DAILY [facility] Last Admin: 02/15/18 10:28 Dose: 500 mg Budesonide/Formoterol Fumarate (Symbicort 80/4.5mcg -) 2 puff IH BID [facility] Last Admin: 02/15/18 21:53 Dose: 2 puff Cyanocobalamin (Vitamin B12 -) 2,500 mcg PO DAILY [facility] Last Admin: 02/15/18 10:27 Dose: 2,500 mcg Docusate Sodium (Colace -) 100 mg PO HS [facility] Last Admin: 02/15/18 21:53 Dose: 100 mg Escitalopram Oxalate (Lexapro -) 10 mg PO DAILY [facility] Last Admin: 02/15/18 10:27 Dose: 10 mg Ferrous Sulfate (Feosol -) 325 mg PO DAILY [facility] Last Admin: 02/15/18 10:28 Dose: 325 mg IV Flush (Picc Line Flush) 8 ml IVPUSH PRN PRN PRN Reason: Protocol Last Admin: 02/16/18 02:57 Dose: 8 ml Daptomycin 600 mg/ Sodium (Chloride) 100 mls @ 200 mls/hr IVPB DAILY [facility] Last Admin: 02/15/18 11:58 Dose: 200 mls/hr Meropenem 500 mg/ Sodium (Chloride) 100 mls @ 200 mls/hr IVPB Q8H-IV [facility] Last Admin: 02/16/18 02:15 Dose: 200 mls/hr Lactobacillus Acidophilus (Bacid -) 1 tab PO BID [facility] Last Admin: 02/15/18 21:53 Dose: 1 tab Levothyroxine Sodium (Synthroid -) 50 mcg PO DAILY@0700 [facility] Last Admin: 02/16/18 06:15 Dose: 50 mcg Losartan Potassium (Cozaar -) 50 mg PO DAILY [facility] Last Admin: 02/15/18 10:28 Dose: 50 mg Magnesium Chloride (Slow-Mag -) 128 mg PO DAILY [facility] Last Admin: 02/15/18 10:29 Dose: 128 mg Metoprolol Succinate (Toprol Xl -) 50 mg PO DAILY [facility] Last Admin: 02/15/18 10:28 Dose: 50 mg Oxycodone HCl (Oxycontin -) 10 mg PO BID [facility] Last Admin: 02/15/18 21:52 Dose: 10 mg Oxycodone HCl (Roxicodone -) 10 mg PO Q6H PRN PRN Reason: PAIN LEVEL 6-10 Last Admin: 02/15/18 19:56 Dose: 10 mg Pantoprazole Sodium (Protonix -) 40 mg PO DAILY [facility] Last Admin: 02/15/18 10:27 Dose: 40 mg Polyethylene Glycol (Miralax (For Daily Use) -) 17 gm PO BID [facility] Last Admin: 02/15/18 21:54 Dose: Not Given Pramipexole Dihydrochloride (Mirapex -) 0.25 mg PO BID [facility] Last Admin: 02/15/18 21:54 Dose: 0.25 mg Pregabalin (Lyrica -) 100 mg PO BID [facility] Last Admin: 02/15/18 21:53 Dose: 100 mg Rosuvastatin Calcium (Crestor -) 10 mg PO HS [facility] Last Admin: 02/15/18 21:53 Dose: 10 mg Senna (Senna -) [address] [facility] Last Admin: 02/15/18 21:53 Dose: 2 tab Solifenacin (Vesicare -) 10 mg PO DAILY [facility] Last Admin: 02/15/18 10:26 Dose: 10 mg - Objective Vital Signs: Vital Signs Temperature 97.8 F 02/16/18 05:47 Pulse Rate 70 02/16/18 05:47 Respiratory Rate 18 02/16/18 05:47 Blood Pressure 128/64 02/16/18 05:47 O2 Sat by Pulse Oximetry (%) 99 02/15/18 21:00 Constitutional: Yes: No Distress Cardiovascular: Yes: Regular Rate and Rhythm, S1, S2 Respiratory: Yes: WNL, Regular, CTA Bilaterally Gastrointestinal: Yes: WNL, Normal Bowel Sounds, Soft. No: Tenderness Extremities: Yes: Erythema, Other (Scratch hillman) Labs: INR, PTT INR 1.88 (0.82-1.09) H 02/08/18 06:45 Assessment/Plan Laboratory Tests 02/12/18 02/15/18 02/15/18 06:40 07:00 07:00 WBC Hgb Hct Plt Count ESR 96 H IgG Pending IgA Pending IgM Pending NOREEN M-Randall Pending 02/15/18 07:00 WBC 4.8 Hgb 9.5 L Hct 27.5 L Plt Count 268 ESR IgG IgA IgM NOREEN M-Randall Assessment Baseline treatment for vertebral osteomyelitis Now with cellulitis ? self infilicted from scratching leg Erythema much better over 48 hours. Plan Once SSTI resolved can go back to her original antibiotics Garrett MANCILLA
[2018-02-16 08:43] LABS: ANION GAP 4 (8-16); BLOOD UREA NITROGEN 16 mg/dL (7-18); CALCIUM 9.6 mg/dL (8.5-10.1); CHLORIDE 103 mmol/L (98-107); CO2 32 mmol/L (21-32); GLUCOSE,RANDOM 82 mg/dL (74-106); POTASSIUM 4.4 mmol/L (3.5-5.1); SODIUM 139 mmol/L (136-145)
[2018-02-16 08:44] LABS: CREATININE 0.7 mg/dL (0.55-1.02)
[2018-02-16] MEDS: LACTOBACILLUS ACIDOPHILUS 1 TABLET PO SCH ×2 (09:41→21:57)
[2018-02-16] MEDS: ASCORBIC ACID 500 MG TABLET (FP) PO SCH (09:41)
[2018-02-16] MEDS: LOSARTAN POTASSIUM 50 MG TABLET (FP) PO SCH (09:41)
[2018-02-16] MEDS: ESCITALOPRAM OXALATE 10 MG TABLET (FP) PO SCH (09:41)
[2018-02-16] MEDS: FERROUS SO4 325 MG TABLET (FP) PO SCH (09:41)
[2018-02-16] MEDS: APIXABAN 5 MG TABLET PO SCH ×2 (09:42→21:55)
[2018-02-16] MEDS: MAGNESIUM CL 64 MG TABLET.SA PO SCH (09:42)
[2018-02-16] MEDS: PRAMIPEXOLE DIHYDROCHLORIDE 0.25 MG TABLET PO SCH ×2 (09:42→21:55)
[2018-02-16] MEDS: BUDESONIDE/FORMETEROL FUMARATE 80/4.5 mcg INHALER IH SCH ×2 (09:42→21:54)
[2018-02-16] MEDS: POLYETHYLENE GLYCOL 3350 119 GM BTL PO SCH ×2 (10:05→21:57)
[2018-02-16] MEDS: oxyCODONE HCL 10 MG SUSTAINED ACTING TABLET PO SCH (10:18)
[2018-02-16] MEDS: PREGABALIN 50 MG CAPSULE PO SCH (11:40)
[2018-02-16] MEDS: DAPTOMYCIN 600 MG in SODIUM CHLORIDE 100 ML IVPB SCH (11:40)
[2018-02-16] MEDS: PANTOPRAZOLE 40 MG TABLET (FP) PO SCH (11:41)
[2018-02-16] MEDS: CYANOCOBALAMIN 1,000 MCG TABLET (FP) PO SCH (12:32)
[2018-02-16] MEDS: SOLIFENACIN SUCCINATE 5 MG TAB (FP) PO SCH (12:33)
--- NOTE | 2018-02-16 14:35 | PN ---
Progress Note, Physician Chief Complaint: Ms Davies has no new complaints. Still with pain in her feet, unchanged. No cp , sob, n/v. - Current Medication List Current Medications: Active Medications Apixaban (Eliquis -) 5 mg PO BID [facility] Last Admin: 02/16/18 09:42 Dose: 5 mg Ascorbic Acid (Vitamin C -) 500 mg PO DAILY [facility] Last Admin: 02/16/18 09:41 Dose: 500 mg Budesonide/Formoterol Fumarate (Symbicort 80/4.5mcg -) 2 puff IH BID [facility] Last Admin: 02/16/18 09:42 Dose: 2 puff Cyanocobalamin (Vitamin B12 -) 2,500 mcg PO DAILY [facility] Last Admin: 02/16/18 12:32 Dose: 2,500 mcg Docusate Sodium (Colace -) 100 mg PO HS [facility] Last Admin: 02/15/18 21:53 Dose: 100 mg Escitalopram Oxalate (Lexapro -) 10 mg PO DAILY [facility] Last Admin: 02/16/18 09:41 Dose: 10 mg Ferrous Sulfate (Feosol -) 325 mg PO DAILY [facility] Last Admin: 02/16/18 09:41 Dose: 325 mg IV Flush (Picc Line Flush) 8 ml IVPUSH PRN PRN PRN Reason: Protocol Last Admin: 02/16/18 02:57 Dose: 8 ml Daptomycin 600 mg/ Sodium (Chloride) 100 mls @ 200 mls/hr IVPB DAILY [facility] Last Admin: 02/16/18 11:40 Dose: 200 mls/hr Meropenem 500 mg/ Sodium (Chloride) 100 mls @ 200 mls/hr IVPB Q8H-IV [facility] Last Admin: 02/16/18 09:43 Dose: 200 mls/hr Lactobacillus Acidophilus (Bacid -) 1 tab PO BID [facility] Last Admin: 02/16/18 09:41 Dose: 1 tab Levothyroxine Sodium (Synthroid -) 50 mcg PO DAILY@0700 [facility] Last Admin: 02/16/18 06:15 Dose: 50 mcg Losartan Potassium (Cozaar -) 50 mg PO DAILY [facility] Last Admin: 02/16/18 09:41 Dose: 50 mg Magnesium Chloride (Slow-Mag -) 128 mg PO DAILY [facility] Last Admin: 02/16/18 09:42 Dose: 128 mg Metoprolol Succinate (Toprol Xl -) 50 mg PO DAILY [facility] Last Admin: 02/16/18 09:41 Dose: 50 mg Oxycodone HCl (Roxicodone -) 10 mg PO Q6H PRN PRN Reason: PAIN LEVEL 6-10 Last Admin: 02/15/18 19:56 Dose: 10 mg Oxycodone HCl (Oxycontin -) 10 mg PO BID [facility] Pantoprazole Sodium (Protonix -) 40 mg PO DAILY [facility] Last Admin: 02/16/18 11:41 Dose: 40 mg Polyethylene Glycol (Miralax (For Daily Use) -) 17 gm PO BID [facility] Last Admin: 02/16/18 10:05 Dose: Not Given Pramipexole Dihydrochloride (Mirapex -) 0.25 mg PO BID [facility] Last Admin: 02/16/18 09:42 Dose: 0.25 mg Pregabalin (Lyrica -) 100 mg PO BID [facility] Last Admin: 02/16/18 11:40 Dose: Not Given Rosuvastatin Calcium (Crestor -) 10 mg PO [facility] Last Admin: 02/15/18 21:53 Dose: 10 mg Senna (Senna -) 2 tab PO [facility] Last Admin: 02/15/18 21:53 Dose: 2 tab Solifenacin (Vesicare -) 10 mg PO DAILY [facility] Last Admin: 02/16/18 12:33 Dose: Not Given - Objective Vital Signs: Vital Signs Temperature 36.6 C 02/16/18 10:00 Pulse Rate 72 02/16/18 10:00 Respiratory Rate 18 02/16/18 10:00 Blood Pressure 117/62 02/16/18 10:00 O2 Sat by Pulse Oximetry (%) 96 02/16/18 09:00 Constitutional: Yes: Well Nourished, No Distress, Calm Cardiovascular: Yes: Regular Rate and Rhythm. No: Gallop, Murmur, Rub Respiratory: Yes: Regular, CTA Bilaterally. No: Rales, Rhonchi, Wheezes Gastrointestinal: Yes: Normal Bowel Sounds, Soft. No: Distention, Tenderness Extremities: Yes: Erythema (minimal) Edema: No Labs: CBC, BMP 02/16/18 07:00 02/16/18 07:00 INR, PTT INR 1.88 (0.82-1.09) H 02/08/18 06:45 Problem List - Problems (1) Leg pain Code(s): M79.606 - PAIN IN LEG, UNSPECIFIED Qualifiers: Laterality: bilateral Qualified Code(s): M79.604 - Pain in right leg; M79.605 - Pain in left leg (2) CAD (coronary artery disease) Code(s): I25.10 - ATHSCL HEART DISEASE OF [place] CORONARY ARTERY W/O ANG PCTRS (3) COPD (chronic obstructive pulmonary disease) Code(s): J44.9 - CHRONIC OBSTRUCTIVE PULMONARY DISEASE, UNSPECIFIED (4) HLD (hyperlipidemia) Code(s): E78.5 - HYPERLIPIDEMIA, UNSPECIFIED (5) HTN (hypertension) Code(s): I10 - ESSENTIAL (PRIMARY) HYPERTENSION Qualifiers: Hypertension type: essential hypertension Qualified Code(s): I10 - Essential (primary) hypertension (6) Hypothyroid Code(s): E03.9 - HYPOTHYROIDISM, UNSPECIFIED Assessment/Plan (1) Leg pain Assessment/Plan: -continue current regimen -continue to reinforce plan for pain control -encouraged her to continue to work with PT Code(s): M79.606 - PAIN IN LEG, UNSPECIFIED Qualifiers: Laterality: bilateral Qualified Code(s): M79.604 - Pain in right leg; M79.605 - Pain in left leg (2) CAD (coronary artery disease) Assessment/Plan: -quiescent -continue current regimen Code(s): I25.10 - ATHSCL HEART DISEASE OF [place] CORONARY ARTERY W/O ANG PCTRS (3) COPD (chronic obstructive pulmonary disease) Assessment/Plan: -continue duonebs -stable Code(s): J44.9 - CHRONIC OBSTRUCTIVE PULMONARY DISEASE, UNSPECIFIED (4) HLD (hyperlipidemia) Assessment/Plan: -continue statin Code(s): E78.5 - HYPERLIPIDEMIA, UNSPECIFIED (5) HTN (hypertension) Assessment/Plan: -continue toprol xl and losartan Code(s): I10 - ESSENTIAL (PRIMARY) HYPERTENSION Qualifiers: Hypertension type: essential hypertension Qualified Code(s): I10 - Essential (primary) hypertension (6) Hypothyroid Assessment/Plan: -continue synthroid Code(s): E03.9 - HYPOTHYROIDISM, UNSPECIFIED (7) Cellulitis -occurred over the weekend -erythema much improved, almost resolved -continue daptomycin and meropenem per ID -plan for discharge when changed back to previous antibiotics
--- NOTE | 2018-02-16 18:56 | PN ---
Progress Note, Physician History of Present Illness: Called by Dr Barron to see the patient again Seen in the bed Chart reviewed Alert awake Still with c/o of lower leg pain though strength is very good sae the right leg Noted the events over the past two days Right leg scratched and ?? infection - Current Medication List Current Medications: Active Medications Apixaban (Eliquis -) 5 mg PO BID [facility] Last Admin: 02/16/18 09:42 Dose: 5 mg Ascorbic Acid (Vitamin C -) 500 mg PO DAILY [facility] Last Admin: 02/16/18 09:41 Dose: 500 mg Budesonide/Formoterol Fumarate (Symbicort 80/4.5mcg -) 2 puff IH BID [facility] Last Admin: 02/16/18 09:42 Dose: 2 puff Cyanocobalamin (Vitamin B12 -) 2,500 mcg PO DAILY [facility] Last Admin: 02/16/18 12:32 Dose: 2,500 mcg Docusate Sodium (Colace -) 100 mg PO HS [facility] Last Admin: 02/15/18 21:53 Dose: 100 mg Escitalopram Oxalate (Lexapro -) 10 mg PO DAILY [facility] Last Admin: 02/16/18 09:41 Dose: 10 mg Ferrous Sulfate (Feosol -) 325 mg PO DAILY [facility] Last Admin: 02/16/18 09:41 Dose: 325 mg IV Flush (Picc Line Flush) 8 ml IVPUSH PRN PRN PRN Reason: Protocol Last Admin: 02/16/18 02:57 Dose: 8 ml Daptomycin 600 mg/ Sodium (Chloride) 100 mls @ 200 mls/hr IVPB DAILY [facility] Last Admin: 02/16/18 11:40 Dose: 200 mls/hr Meropenem 500 mg/ Sodium (Chloride) 100 mls @ 200 mls/hr IVPB Q8H-IV [facility] Last Admin: 02/16/18 17:21 Dose: 200 mls/hr Lactobacillus Acidophilus (Bacid -) 1 tab PO BID [facility] Last Admin: 02/16/18 09:41 Dose: 1 tab Levothyroxine Sodium (Synthroid -) 50 mcg PO DAILY@0700 [facility] Last Admin: 02/16/18 06:15 Dose: 50 mcg Losartan Potassium (Cozaar -) 50 mg PO DAILY [facility] Last Admin: 02/16/18 09:41 Dose: 50 mg Magnesium Chloride (Slow-Mag -) 128 mg PO DAILY [facility] Last Admin: 02/16/18 09:42 Dose: 128 mg Metoprolol Succinate (Toprol Xl -) 50 mg PO DAILY [facility] Last Admin: 02/16/18 09:41 Dose: 50 mg Oxycodone HCl (Roxicodone -) 10 mg PO Q6H PRN PRN Reason: PAIN LEVEL 6-10 Last Admin: 02/15/18 19:56 Dose: 10 mg Oxycodone HCl (Oxycontin -) 10 mg PO BID [facility] Pantoprazole Sodium (Protonix -) 40 mg PO DAILY [facility] Last Admin: 02/16/18 11:41 Dose: 40 mg Polyethylene Glycol (Miralax (For Daily Use) -) 17 gm PO BID [facility] Last Admin: 02/16/18 10:05 Dose: Not Given Pramipexole Dihydrochloride (Mirapex -) 0.25 mg PO BID [facility] Last Admin: 02/16/18 09:42 Dose: 0.25 mg Pregabalin (Lyrica -) 100 mg PO BID [facility] Last Admin: 02/16/18 11:40 Dose: Not Given Rosuvastatin Calcium (Crestor -) 10 mg PO HS [facility] Last Admin: 02/15/18 21:53 Dose: 10 mg Senna (Senna -) 2 tab PO [facility] Last Admin: 02/15/18 21:53 Dose: 2 tab Solifenacin (Vesicare -) 10 mg PO DAILY [facility] Last Admin: 02/16/18 12:33 Dose: Not Given - Objective Vital Signs: Vital Signs Temperature 98.1 F 02/16/18 16:14 Pulse Rate 93 H 02/16/18 16:14 Respiratory Rate 18 02/16/18 16:14 Blood Pressure 122/64 02/16/18 16:14 O2 Sat by Pulse Oximetry (%) 96 02/16/18 09:00 Constitutional: Yes: Well Nourished Eyes: Yes: WNL Neurological: Yes: Alert, Oriented, Babinski negative, Paresthesia ...Motor Strength: LUE (4), LLE (3), RUE (4), RLE (3) Labs: CBC, BMP 02/16/18 07:00 02/16/18 07:00 INR, PTT INR 1.88 (0.82-1.09) H 02/08/18 06:45 Problem List - Problems (1) Low back pain Assessment/Plan: OM Allergy on the leg Depression Anemia ?? allergy erythema 1. OOB to chair 2. Fall precautions 3. Pain meds adjust 4. Advance PT 5. Need SNF 6. Will repeat the MRI to follow up for the OM and fluid collection if better we can discuss tapering the Abx 7. Incraese Lexparo to 20 mg po qd Code(s): M54.5 - LOW BACK PAIN
[2018-02-16] MEDS: PREGABALIN 75 MG CAPSULE PO SCH (21:54)
[2018-02-16] MEDS: LIDOCAINE PATCH REMOVAL MC SCH (21:54)
[2018-02-16] MEDS: morphine SULFATE IMMEDIATE RELEASE 30 MG TAB PO PRN (21:55)
[2018-02-16] MEDS: ROSUVASTATIN CA 10 MG TABLET (FP) PO SCH (21:57)
[2018-02-16] MEDS: SENNOSIDES 8.6MG TABLET (FP) PO SCH (21:57)
[2018-02-16] MEDS: DOCUSATE SODIUM 100 MG CAPSULE (FP) PO SCH (21:57)
[2018-02-16] MEDS ORDERED: oxyCODONE HCL 10 MG SUSTAINED ACTING TABLET PO SCH (22:00)
[2018-02-17] MEDS: MEROPENEM 500 MG in SODIUM CHLORIDE 100 ML IVPB SCH ×4 (02:30→18:43)
[2018-02-17 06:06] LABS: IGA IMMUNOGLOBULIN 301 mg/dL (64-422); IGG IMMUNOGLOBULIN 1422 mg/dL (700-1600); IGM IMMUNOGLOBULIN 45 mg/dL (26-217)
[2018-02-17] MEDS: LEVOTHYROXINE NA 50 MCG TABLET (FP) PO SCH (06:32)
[2018-02-17 08:40] LABS: BASO % 0.6 % (0-2.0); EOS % 4.1 % (0-4.5); HEMATOCRIT 27.6 % (32.4-45.2); HEMOGLOBIN 9.3 GM/dL (10.7-15.3); MCH 28.4 pg (25.7-33.7); MCHC 33.6 g/dl (32.0-36.0); MEAN CELL VOLUME 84.6 fl (80-96); MEAN PLT VOLUME 7.5 fl (7.5-11.1); MONO % 8.9 % (3.8-10.2); NEUT % 58.4 % (42.8-82.8); PLATELET COUNT 240 K/MM3 (134-434); RBC 3.27 M/mm3 (3.60-5.2); RDW 14.2 % (11.6-15.6); WHITE BLOOD COUNT 4.8 K/mm3 (4.0-10.0)
[2018-02-17 09:03] LABS: CHLORIDE 104 mmol/L (98-107); POTASSIUM 4.1 mmol/L (3.5-5.1); SODIUM 141 mmol/L (136-145)
[2018-02-17 09:31] LABS: ANION GAP 7 (8-16); BLOOD UREA NITROGEN 14 mg/dL (7-18); CALCIUM 9.3 mg/dL (8.5-10.1); CO2 30 mmol/L (21-32); CREATININE 0.6 mg/dL (0.55-1.02); GLUCOSE,RANDOM 86 mg/dL (74-106); MAGNESIUM 1.7 mg/dL (1.8-2.4); PHOSPHOROUS 3.4 mg/dL (2.5-4.9)
[2018-02-17] MEDS ORDERED: PT OWN MED DRAWER 7, Y5N ONE ×7 (10:27→23:19)
[2018-02-17] MEDS: FERROUS SO4 325 MG TABLET (FP) PO SCH (10:37)
[2018-02-17] MEDS: ESCITALOPRAM OXALATE 10 MG TABLET (FP) PO SCH (10:37)
[2018-02-17] MEDS: ASCORBIC ACID 500 MG TABLET (FP) PO SCH (10:37)
[2018-02-17] MEDS: LACTOBACILLUS ACIDOPHILUS 1 TABLET PO SCH ×2 (10:37→23:00)
[2018-02-17] MEDS: CYANOCOBALAMIN 1,000 MCG TABLET (FP) PO SCH (10:37)
[2018-02-17] MEDS: LIDOCAINE 5% TOPICAL PATCH TP SCH (10:37)
[2018-02-17] MEDS: SOLIFENACIN SUCCINATE 5 MG TAB (FP) PO SCH ×2 (10:38→10:46)
[2018-02-17] MEDS: PANTOPRAZOLE 40 MG TABLET (FP) PO SCH (10:38)
[2018-02-17] MEDS: LOSARTAN POTASSIUM 50 MG TABLET (FP) PO SCH (10:38)
[2018-02-17] MEDS: PRAMIPEXOLE DIHYDROCHLORIDE 0.25 MG TABLET PO SCH ×2 (10:39→23:36)
[2018-02-17] MEDS: APIXABAN 5 MG TABLET PO SCH ×2 (10:39→23:36)
[2018-02-17] MEDS: MAGNESIUM CL 64 MG TABLET.SA PO SCH (10:39)
[2018-02-17] MEDS: PREGABALIN 75 MG CAPSULE PO SCH ×2 (10:40→23:00)
[2018-02-17] MEDS: POLYETHYLENE GLYCOL 3350 119 GM BTL PO SCH ×2 (10:45→23:01)
[2018-02-17] MEDS: DAPTOMYCIN 600 MG in SODIUM CHLORIDE 100 ML IVPB SCH ×2 (11:00→17:31)
--- NOTE | 2018-02-17 12:40 | PN ---
Progress Note, Physician Chief Complaint: Ms Davies has no new complaints. Still with pain in her feet, unchanged. No cp , sob, n/v. Now says she wants to go home and not rehab. - Current Medication List Current Medications: Active Medications Alteplase, Recombinant (Cathflo Activase -) 2 mg IVPUSH ONCE ONE Stop: 02/17/18 13:01 Apixaban (Eliquis -) 5 mg PO BID [facility] Last Admin: 02/17/18 10:39 Dose: 5 mg Ascorbic Acid (Vitamin C -) 500 mg PO DAILY [facility] Last Admin: 02/17/18 10:37 Dose: 500 mg Budesonide/Formoterol Fumarate (Symbicort 80/4.5mcg -) 2 puff IH BID [facility] Last Admin: 02/16/18 21:54 Dose: 2 puff Cyanocobalamin (Vitamin B12 -) 2,500 mcg PO DAILY [facility] Last Admin: 02/17/18 10:37 Dose: 2,500 mcg Docusate Sodium (Colace -) 100 mg PO HS [facility] Last Admin: 02/16/18 21:57 Dose: Not Given Escitalopram Oxalate (Lexapro -) 20 mg PO DAILY [facility] Stop: 02/22/18 19:02 Last Admin: 02/17/18 10:37 Dose: 20 mg Ferrous Sulfate (Feosol -) 325 mg PO DAILY [facility] Last Admin: 02/17/18 10:37 Dose: 325 mg IV Flush (Picc Line Flush) 8 ml IVPUSH PRN PRN PRN Reason: Protocol Last Admin: 02/16/18 02:57 Dose: 8 ml Daptomycin 600 mg/ Sodium (Chloride) 100 mls @ 200 mls/hr IVPB DAILY [facility] Last Admin: 02/16/18 11:40 Dose: 200 mls/hr Meropenem 500 mg/ Sodium (Chloride) 100 mls @ 200 mls/hr IVPB Q8H-IV [facility] Last Admin: 02/17/18 11:06 Dose: Not Given Lactobacillus Acidophilus (Bacid -) 1 tab PO BID [facility] Last Admin: 02/17/18 10:37 Dose: 1 tab Levothyroxine Sodium (Synthroid -) 50 mcg PO DAILY@0700 [facility] Last Admin: 02/17/18 06:32 Dose: 50 mcg Lidocaine (Lidoderm Patch -) 1 patch TP DAILY [facility] Last Admin: 02/17/18 10:37 Dose: 1 patch Losartan Potassium (Cozaar -) 50 mg PO DAILY [facility] Last Admin: 02/17/18 10:38 Dose: 50 mg Magnesium Chloride (Slow-Mag -) 128 mg PO DAILY [facility] Last Admin: 02/17/18 10:39 Dose: 128 mg Metoprolol Succinate (Toprol Xl -) 50 mg PO DAILY [facility] Last Admin: 02/17/18 10:37 Dose: 50 mg Miscellaneous (Lidoderm Patch Removal) 1 each MC DAILY@2200 [facility] Last Admin: 02/16/18 21:54 Dose: 1 each Morphine Sulfate (Msir -) 15 mg PO Q12H PRN PRN Reason: PAIN LEVEL 6-10 Last Admin: 02/16/18 21:55 Dose: 15 mg Pantoprazole Sodium (Protonix -) 40 mg PO DAILY [facility] Last Admin: 02/17/18 10:38 Dose: 40 mg Polyethylene Glycol (Miralax (For Daily Use) -) 17 gm PO BID [facility] Last Admin: 02/17/18 10:45 Dose: Not Given Pramipexole Dihydrochloride (Mirapex -) 0.25 mg PO BID [facility] Last Admin: 02/17/18 10:39 Dose: 0.25 mg Pregabalin (Lyrica -) 150 mg PO BID [facility] Last Admin: 02/17/18 10:40 Dose: 150 mg Rosuvastatin Calcium (Crestor -) 10 mg PO HS [facility] Last Admin: 02/16/18 21:57 Dose: 10 mg Senna (Senna -) 2 tab PO [facility] Last Admin: 02/16/18 21:57 Dose: Not Given Solifenacin (Vesicare -) 10 mg PO DAILY [facility] Last Admin: 02/17/18 10:46 Dose: Not Given - Objective Vital Signs: Vital Signs Temperature 36.6 C 02/17/18 10:33 Pulse Rate 85 02/17/18 10:33 Respiratory Rate 20 02/17/18 10:33 Blood Pressure 124/74 02/17/18 10:33 O2 Sat by Pulse Oximetry (%) 96 02/16/18 21:00 Constitutional: Yes: Well Nourished, No Distress, Calm Cardiovascular: Yes: Regular Rate and Rhythm. No: Gallop, Murmur, Rub Respiratory: Yes: Regular, CTA Bilaterally. No: Rales, Rhonchi, Wheezes Gastrointestinal: Yes: Normal Bowel Sounds, Soft. No: Distention, Tenderness Extremities: Yes: WNL Edema: No Labs: CBC, BMP 02/17/18 07:45 02/17/18 07:45 INR, PTT INR 1.88 (0.82-1.09) H 02/08/18 06:45 Problem List - Problems (1) Leg pain Code(s): M79.606 - PAIN IN LEG, UNSPECIFIED Qualifiers: Laterality: bilateral Qualified Code(s): M79.604 - Pain in right leg; M79.605 - Pain in left leg (2) CAD (coronary artery disease) Code(s): I25.10 - ATHSCL HEART DISEASE OF [place] CORONARY ARTERY W/O ANG PCTRS (3) COPD (chronic obstructive pulmonary disease) Code(s): J44.9 - CHRONIC OBSTRUCTIVE PULMONARY DISEASE, UNSPECIFIED (4) HLD (hyperlipidemia) Code(s): E78.5 - HYPERLIPIDEMIA, UNSPECIFIED (5) HTN (hypertension) Code(s): I10 - ESSENTIAL (PRIMARY) HYPERTENSION Qualifiers: Hypertension type: essential hypertension Qualified Code(s): I10 - Essential (primary) hypertension (6) Hypothyroid Code(s): E03.9 - HYPOTHYROIDISM, UNSPECIFIED Assessment/Plan (1) Leg pain Assessment/Plan: -continue current regimen -encouraged her to continue to work with PT Code(s): M79.606 - PAIN IN LEG, UNSPECIFIED Qualifiers: Laterality: bilateral Qualified Code(s): M79.604 - Pain in right leg; M79.605 - Pain in left leg (2) CAD (coronary artery disease) Assessment/Plan: -quiescent -continue current regimen Code(s): I25.10 - ATHSCL HEART DISEASE OF [place] CORONARY ARTERY W/O ANG PCTRS (3) COPD (chronic obstructive pulmonary disease) Assessment/Plan: -continue duonebs -stable Code(s): J44.9 - CHRONIC OBSTRUCTIVE PULMONARY DISEASE, UNSPECIFIED (4) HLD (hyperlipidemia) Assessment/Plan: -continue statin Code(s): E78.5 - HYPERLIPIDEMIA, UNSPECIFIED (5) HTN (hypertension) Assessment/Plan: -continue toprol xl and losartan Code(s): I10 - ESSENTIAL (PRIMARY) HYPERTENSION Qualifiers: Hypertension type: essential hypertension Qualified Code(s): I10 - Essential (primary) hypertension (6) Hypothyroid Assessment/Plan: -continue synthroid Code(s): E03.9 - HYPOTHYROIDISM, UNSPECIFIED (7) Cellulitis -occurred over the weekend -erythema looks almost completely resolved -continue daptomycin and meropenem for 24 hours per ID -plan to change back to cefepime and vancomycin after that for osteomyelitis of the back -MRI ordered
[2018-02-17] MEDS ORDERED: ALTEPLASE 2 MG VIAL IVPUSH ONE (13:00)
[2018-02-17] MEDS: BUDESONIDE/FORMETEROL FUMARATE 80/4.5 mcg INHALER IH SCH ×2 (13:36→22:59)
[2018-02-17] MEDS: morphine SULFATE IMMEDIATE RELEASE 30 MG TAB PO PRN (13:50)
--- NOTE | 2018-02-17 14:05 | PN ---
Progress Note, Physician History of Present Illness: Awake in bed No c/o R blackwell pain C/O LE weakness and numbness Afebrile Tolerating antibiotics - Current Medication List Current Medications: Active Medications Apixaban (Eliquis -) 5 mg PO BID [facility] Last Admin: 02/17/18 10:39 Dose: 5 mg Ascorbic Acid (Vitamin C -) 500 mg PO DAILY [facility] Last Admin: 02/17/18 10:37 Dose: 500 mg Budesonide/Formoterol Fumarate (Symbicort 80/4.5mcg -) 2 puff IH BID [facility] Last Admin: 02/17/18 13:36 Dose: 2 puff Cyanocobalamin (Vitamin B12 -) 2,500 mcg PO DAILY [facility] Last Admin: 02/17/18 10:37 Dose: 2,500 mcg Docusate Sodium (Colace -) 100 mg PO HS [facility] Last Admin: 02/16/18 21:57 Dose: Not Given Escitalopram Oxalate (Lexapro -) 20 mg PO DAILY [facility] Stop: 02/22/18 19:02 Last Admin: 02/17/18 10:37 Dose: 20 mg Ferrous Sulfate (Feosol -) 325 mg PO DAILY [facility] Last Admin: 02/17/18 10:37 Dose: 325 mg IV Flush (Picc Line Flush) 8 ml IVPUSH PRN PRN PRN Reason: Protocol Last Admin: 02/16/18 02:57 Dose: 8 ml Daptomycin 600 mg/ Sodium (Chloride) 100 mls @ 200 mls/hr IVPB DAILY [facility] Last Admin: 02/16/18 11:40 Dose: 200 mls/hr Meropenem 500 mg/ Sodium (Chloride) 100 mls @ 200 mls/hr IVPB Q8H-IV [facility] Last Admin: 02/17/18 11:06 Dose: Not Given Lactobacillus Acidophilus (Bacid -) 1 tab PO BID [facility] Last Admin: 02/17/18 10:37 Dose: 1 tab Levothyroxine Sodium (Synthroid -) 50 mcg PO DAILY@0700 [facility] Last Admin: 02/17/18 06:32 Dose: 50 mcg Lidocaine (Lidoderm Patch -) 1 patch TP DAILY [facility] Last Admin: 02/17/18 10:37 Dose: 1 patch Losartan Potassium (Cozaar -) 50 mg PO DAILY [facility] Last Admin: 06/12/18 10:38 Dose: 50 mg Magnesium Chloride (Slow-Mag -) 128 mg PO DAILY [facility] Last Admin: 02/17/18 10:39 Dose: 128 mg Metoprolol Succinate (Toprol Xl -) 50 mg PO DAILY [facility] Last Admin: 02/17/18 10:37 Dose: 50 mg Miscellaneous (Lidoderm Patch Removal) 1 each MC DAILY@2200 [facility] Last Admin: 02/16/18 21:54 Dose: 1 each Morphine Sulfate (Msir -) 15 mg PO Q12H PRN PRN Reason: PAIN LEVEL 6-10 Last Admin: 02/17/18 13:50 Dose: 15 mg Pantoprazole Sodium (Protonix -) 40 mg PO DAILY [facility] Last Admin: 02/17/18 10:38 Dose: 40 mg Polyethylene Glycol (Miralax (For Daily Use) -) 17 gm PO BID [facility] Last Admin: 02/17/18 10:45 Dose: Not Given Pramipexole Dihydrochloride (Mirapex -) 0.25 mg PO BID [facility] Last Admin: 02/17/18 10:39 Dose: 0.25 mg Pregabalin (Lyrica -) 150 mg PO BID [facility] Last Admin: 02/17/18 10:40 Dose: 150 mg Rosuvastatin Calcium (Crestor -) 10 mg PO [facility] Last Admin: 02/16/18 21:57 Dose: 10 mg Senna (Senna -) 2 tab PO [facility] Last Admin: 02/16/18 21:57 Dose: Not Given Solifenacin (Vesicare -) 10 mg PO DAILY [facility] Last Admin: 02/17/18 10:46 Dose: Not Given - Objective Vital Signs: Vital Signs Temperature 98 F 02/17/18 10:33 Pulse Rate 85 02/17/18 10:33 Respiratory Rate 20 02/17/18 10:33 Blood Pressure 124/74 02/17/18 10:33 O2 Sat by Pulse Oximetry (%) 96 02/16/18 21:00 Constitutional: Yes: No Distress Eyes: Yes: Conjunctiva Clear Cardiovascular: Yes: Regular Rate and Rhythm, S1, S2 Respiratory: Yes: Diminished Gastrointestinal: Yes: Normal Bowel Sounds, Soft, Abdomen, Obese. No: Tenderness Extremities: Yes: Other (+ excoriations, R blackwell ; resolving erythema/ warmth R pretibial area) Edema: Yes Labs: CBC, BMP 02/17/18 07:45 02/17/18 07:45 INR, PTT INR 1.88 (0.82-1.09) H 02/08/18 06:45 Assessment/Plan ? cellulitis R LE Discitis/ vertebral osteomyelitis L5S1 Continue daptomycin/ meropenem additional 24h
[2018-02-17] MEDS: ROSUVASTATIN CA 10 MG TABLET (FP) PO SCH (23:00)
[2018-02-17] MEDS: SENNOSIDES 8.6MG TABLET (FP) PO SCH (23:00)
[2018-02-17] MEDS: DOCUSATE SODIUM 100 MG CAPSULE (FP) PO SCH (23:00)
[2018-02-17] MEDS: LIDOCAINE PATCH REMOVAL MC SCH (23:00)
[2018-02-18] MEDS ORDERED: PT OWN MED DRAWER 7, Y5N ONE ×3 (02:23→17:32)
[2018-02-18] MEDS: MEROPENEM 500 MG in SODIUM CHLORIDE 100 ML IVPB SCH ×3 (02:28→17:43)
[2018-02-18] MEDS: LEVOTHYROXINE NA 50 MCG TABLET (FP) PO SCH (06:40)
[2018-02-18 08:10] LABS: BASO % 0.7 % (0-2.0); EOS % 3.6 % (0-4.5); HEMATOCRIT 26.8 % (32.4-45.2); LYMPH % 33.1 % (8-40); MCH 28.2 pg (25.7-33.7); MCHC 33.6 g/dl (32.0-36.0); MEAN CELL VOLUME 83.9 fl (80-96); MONO % 10.8 % (3.8-10.2); NEUT % 51.8 % (42.8-82.8); PLATELET COUNT 268 K/MM3 (134-434); RDW 14.7 % (11.6-15.6); WHITE BLOOD COUNT 4.6 K/mm3 (4.0-10.0)
[2018-02-18 08:16] LABS: ANION GAP 7 (8-16); BLOOD UREA NITROGEN 14 mg/dL (7-18); CALCIUM 9.5 mg/dL (8.5-10.1); CHLORIDE 103 mmol/L (98-107); CO2 31 mmol/L (21-32); CREATININE 0.6 mg/dL (0.55-1.02); GLUCOSE,RANDOM 82 mg/dL (74-106); MAGNESIUM 1.8 mg/dL (1.8-2.4); POTASSIUM 4.1 mmol/L (3.5-5.1); SODIUM 141 mmol/L (136-145)
[2018-02-18] MEDS: SOLIFENACIN SUCCINATE 5 MG TAB (FP) PO SCH (09:35)
[2018-02-18] MEDS: LACTOBACILLUS ACIDOPHILUS 1 TABLET PO SCH ×2 (09:35→22:05)
[2018-02-18] MEDS: ESCITALOPRAM OXALATE 10 MG TABLET (FP) PO SCH (09:35)
[2018-02-18] MEDS: FERROUS SO4 325 MG TABLET (FP) PO SCH (09:35)
[2018-02-18] MEDS: BUDESONIDE/FORMETEROL FUMARATE 80/4.5 mcg INHALER IH SCH ×2 (09:35→22:06)
[2018-02-18] MEDS: CYANOCOBALAMIN 1,000 MCG TABLET (FP) PO SCH (09:37)
[2018-02-18] MEDS: LOSARTAN POTASSIUM 50 MG TABLET (FP) PO SCH (09:37)
[2018-02-18] MEDS: ASCORBIC ACID 500 MG TABLET (FP) PO SCH (09:38)
[2018-02-18] MEDS: PREGABALIN 75 MG CAPSULE PO SCH ×2 (09:38→22:05)
[2018-02-18] MEDS: PANTOPRAZOLE 40 MG TABLET (FP) PO SCH (09:38)
[2018-02-18] MEDS: PRAMIPEXOLE DIHYDROCHLORIDE 0.25 MG TABLET PO SCH ×2 (09:39→22:06)
[2018-02-18] MEDS: MAGNESIUM CL 64 MG TABLET.SA PO SCH (09:39)
[2018-02-18] MEDS: APIXABAN 5 MG TABLET PO SCH ×2 (09:39→22:06)
[2018-02-18] MEDS: LIDOCAINE 5% TOPICAL PATCH TP SCH (09:40)
[2018-02-18] MEDS: POLYETHYLENE GLYCOL 3350 119 GM BTL PO SCH ×3 (09:41→22:13)
[2018-02-18] MEDS: DAPTOMYCIN 600 MG in SODIUM CHLORIDE 100 ML IVPB SCH (11:26)
--- NOTE | 2018-02-18 11:50 | PN ---
Progress Note, Physician Chief Complaint: Ms Davies has no new complaints. Pain in her feet unchanged. No cp, sob, n/v. - Current Medication List Current Medications: Active Medications Apixaban (Eliquis -) 5 mg PO BID [facility] Last Admin: 02/18/18 09:39 Dose: 5 mg Ascorbic Acid (Vitamin C -) 500 mg PO DAILY [facility] Last Admin: 02/18/18 09:38 Dose: 500 mg Budesonide/Formoterol Fumarate (Symbicort 80/4.5mcg -) 2 puff IH BID [facility] Last Admin: 02/18/18 09:35 Dose: 2 puff Cyanocobalamin (Vitamin B12 -) 2,500 mcg PO DAILY [facility] Last Admin: 02/18/18 09:37 Dose: 2,500 mcg Docusate Sodium (Colace -) 100 mg PO HS [facility] Last Admin: 02/17/18 23:00 Dose: 100 mg Escitalopram Oxalate (Lexapro -) 20 mg PO DAILY [facility] Stop: 02/22/18 19:02 Last Admin: 02/18/18 09:35 Dose: 20 mg Ferrous Sulfate (Feosol -) 325 mg PO DAILY [facility] Last Admin: 02/18/18 09:35 Dose: 325 mg IV Flush (Picc Line Flush) 8 ml IVPUSH PRN PRN PRN Reason: Protocol Last Admin: 02/16/18 02:57 Dose: 8 ml Daptomycin 600 mg/ Sodium (Chloride) 100 mls @ 200 mls/hr IVPB DAILY [facility] Last Admin: 02/18/18 11:26 Dose: 200 mls/hr Meropenem 500 mg/ Sodium (Chloride) 100 mls @ 200 mls/hr IVPB Q8H-IV [facility] Last Admin: 02/18/18 09:40 Dose: 200 mls/hr Lactobacillus Acidophilus (Bacid -) 1 tab PO BID [facility] Last Admin: 02/18/18 09:35 Dose: 1 tab Levothyroxine Sodium (Synthroid -) 50 mcg PO DAILY@0700 [facility] Last Admin: 02/18/18 06:40 Dose: 50 mcg Lidocaine (Lidoderm Patch -) 1 patch TP DAILY [facility] Last Admin: 02/18/18 09:40 Dose: 1 patch Losartan Potassium (Cozaar -) 50 mg PO DAILY [facility] Last Admin: 02/18/18 09:37 Dose: 50 mg Magnesium Chloride (Slow-Mag -) 128 mg PO DAILY [facility] Last Admin: 02/18/18 09:39 Dose: 128 mg Metoprolol Succinate (Toprol Xl -) 50 mg PO DAILY [facility] Last Admin: 02/18/18 09:35 Dose: 50 mg Miscellaneous (Lidoderm Patch Removal) 1 each MC DAILY@2200 [facility] Last Admin: 02/17/18 23:00 Dose: 1 each Morphine Sulfate (Msir -) 15 mg PO Q12H PRN PRN Reason: PAIN LEVEL 6-10 Last Admin: 02/17/18 13:50 Dose: 15 mg Pantoprazole Sodium (Protonix -) 40 mg PO DAILY [facility] Last Admin: 02/18/18 09:38 Dose: 40 mg Polyethylene Glycol (Miralax (For Daily Use) -) 17 gm PO BID [facility] Last Admin: 02/18/18 09:41 Dose: Not Given Pramipexole Dihydrochloride (Mirapex -) 0.25 mg PO BID [facility] Last Admin: 02/18/18 09:39 Dose: 0.25 mg Pregabalin (Lyrica -) 150 mg PO BID [facility] Last Admin: 02/18/18 09:38 Dose: 150 mg Rosuvastatin Calcium (Crestor -) 10 mg PO HS [facility] Last Admin: 02/17/18 23:00 Dose: 10 mg Senna (Senna -) 2 tab PO [facility] Last Admin: 02/17/18 23:00 Dose: 2 tab Solifenacin (Vesicare -) 10 mg PO DAILY [facility] Last Admin: 02/18/18 09:35 Dose: 10 mg - Objective Vital Signs: Vital Signs Temperature 36.6 C 02/18/18 06:00 Pulse Rate 101 H 02/18/18 06:00 Respiratory Rate 18 02/18/18 06:00 Blood Pressure 149/85 02/18/18 06:00 O2 Sat by Pulse Oximetry (%) 95 02/17/18 21:00 Constitutional: Yes: Well Nourished, No Distress, Calm Cardiovascular: Yes: Regular Rate and Rhythm. No: Gallop, Murmur, Rub Respiratory: Yes: Regular, CTA Bilaterally. No: Rales, Rhonchi, Wheezes Gastrointestinal: Yes: Normal Bowel Sounds, Soft. No: Distention, Tenderness Extremities: Yes: WNL Edema: No Labs: CBC, BMP 02/18/18 07:30 02/18/18 07:30 INR, PTT INR 1.88 (0.82-1.09) H 02/08/18 06:45 Problem List - Problems (1) Leg pain Code(s): M79.606 - PAIN IN LEG, UNSPECIFIED Qualifiers: Laterality: bilateral Qualified Code(s): M79.604 - Pain in right leg; M79.605 - Pain in left leg (2) CAD (coronary artery disease) Code(s): I25.10 - ATHSCL HEART DISEASE OF [place] CORONARY ARTERY W/O ANG PCTRS (3) COPD (chronic obstructive pulmonary disease) Code(s): J44.9 - CHRONIC OBSTRUCTIVE PULMONARY DISEASE, UNSPECIFIED (4) HLD (hyperlipidemia) Code(s): E78.5 - HYPERLIPIDEMIA, UNSPECIFIED (5) HTN (hypertension) Code(s): I10 - ESSENTIAL (PRIMARY) HYPERTENSION Qualifiers: Hypertension type: essential hypertension Qualified Code(s): I10 - Essential (primary) hypertension (6) Hypothyroid Code(s): E03.9 - HYPOTHYROIDISM, UNSPECIFIED Assessment/Plan (1) Leg pain Assessment/Plan: -continue current regimen -encouraged her to continue to work with PT Code(s): M79.606 - PAIN IN LEG, UNSPECIFIED Qualifiers: Laterality: bilateral Qualified Code(s): M79.604 - Pain in right leg; M79.605 - Pain in left leg (2) CAD (coronary artery disease) Assessment/Plan: -quiescent -continue current regimen Code(s): I25.10 - ATHSCL HEART DISEASE OF [place] CORONARY ARTERY W/O ANG PCTRS (3) COPD (chronic obstructive pulmonary disease) Assessment/Plan: -continue duonebs -stable Code(s): J44.9 - CHRONIC OBSTRUCTIVE PULMONARY DISEASE, UNSPECIFIED (4) HLD (hyperlipidemia) Assessment/Plan: -continue statin Code(s): E78.5 - HYPERLIPIDEMIA, UNSPECIFIED (5) HTN (hypertension) Assessment/Plan: -continue toprol xl and losartan Code(s): I10 - ESSENTIAL (PRIMARY) HYPERTENSION Qualifiers: Hypertension type: essential hypertension Qualified Code(s): I10 - Essential (primary) hypertension (6) Hypothyroid Assessment/Plan: -continue synthroid Code(s): E03.9 - HYPOTHYROIDISM, UNSPECIFIED (7) Cellulitis -much improved -continue antibiotics per ID Dispo -discharge tomorrow to finish course of IV antibiotics
[2018-02-18] MEDS: DOCUSATE SODIUM 100 MG CAPSULE (FP) PO SCH ×2 (22:05→22:14)
[2018-02-18] MEDS: ROSUVASTATIN CA 10 MG TABLET (FP) PO SCH (22:05)
[2018-02-18] MEDS: SENNOSIDES 8.6MG TABLET (FP) PO SCH ×2 (22:06→22:14)
[2018-02-18] MEDS: LIDOCAINE PATCH REMOVAL MC SCH (22:06)
[2018-02-19] MEDS: MEROPENEM 500 MG in SODIUM CHLORIDE 100 ML IVPB SCH ×2 (02:50→12:20)
[2018-02-19] MEDS: morphine SULFATE IMMEDIATE RELEASE 30 MG TAB PO PRN (06:40)
[2018-02-19] MEDS: LEVOTHYROXINE NA 50 MCG TABLET (FP) PO SCH (06:41)
[2018-02-19 08:57] LABS: ANION GAP 10 (8-16); BLOOD UREA NITROGEN 15 mg/dL (7-18); CALCIUM 9.6 mg/dL (8.5-10.1); CHLORIDE 103 mmol/L (98-107); CO2 27 mmol/L (21-32); CREATININE 0.7 mg/dL (0.55-1.02); GLUCOSE,RANDOM 85 mg/dL (74-106); MAGNESIUM 1.6 mg/dL (1.8-2.4); PHOSPHOROUS 3.3 mg/dL (2.5-4.9); POTASSIUM 3.9 mmol/L (3.5-5.1); SODIUM 140 mmol/L (136-145)
[2018-02-19 09:02] LABS: BASO % 0.5 % (0-2.0); EOS % 2.5 % (0-4.5); HEMATOCRIT 30.4 % (32.4-45.2); HEMOGLOBIN 10.2 GM/dL (10.7-15.3); MCH 28.2 pg (25.7-33.7); MCHC 33.7 g/dl (32.0-36.0); MEAN CELL VOLUME 83.9 fl (80-96); MEAN PLT VOLUME 8.1 fl (7.5-11.1); MONO % 6.7 % (3.8-10.2); NEUT % 59.3 % (42.8-82.8); PLATELET COUNT 276 K/MM3 (134-434); RBC 3.62 M/mm3 (3.60-5.2); RDW 14.7 % (11.6-15.6); WHITE BLOOD COUNT 5.8 K/mm3 (4.0-10.0)
[2018-02-19] MEDS ORDERED: PT OWN MED DRAWER 7, Y5N ONE ×3 (10:39→22:30)
[2018-02-19] MEDS: PREGABALIN 75 MG CAPSULE PO SCH ×2 (10:45→22:34)
[2018-02-19] MEDS: BUDESONIDE/FORMETEROL FUMARATE 80/4.5 mcg INHALER IH SCH ×2 (10:45→22:33)
[2018-02-19] MEDS: LIDOCAINE 5% TOPICAL PATCH TP SCH (10:45)
[2018-02-19] MEDS: SOLIFENACIN SUCCINATE 5 MG TAB (FP) PO SCH (10:46)
[2018-02-19] MEDS: ASCORBIC ACID 500 MG TABLET (FP) PO SCH (10:46)
[2018-02-19] MEDS: CYANOCOBALAMIN 1,000 MCG TABLET (FP) PO SCH (10:46)
[2018-02-19] MEDS: PANTOPRAZOLE 40 MG TABLET (FP) PO SCH (10:47)
[2018-02-19] MEDS: ESCITALOPRAM OXALATE 10 MG TABLET (FP) PO SCH (10:47)
[2018-02-19] MEDS: LOSARTAN POTASSIUM 50 MG TABLET (FP) PO SCH (10:47)
[2018-02-19] MEDS: FERROUS SO4 325 MG TABLET (FP) PO SCH (10:47)
[2018-02-19] MEDS: PRAMIPEXOLE DIHYDROCHLORIDE 0.25 MG TABLET PO SCH ×2 (10:48→22:35)
[2018-02-19] MEDS: MAGNESIUM CL 64 MG TABLET.SA PO SCH (10:48)
[2018-02-19] MEDS: LACTOBACILLUS ACIDOPHILUS 1 TABLET PO SCH ×2 (10:48→22:34)
[2018-02-19] MEDS: APIXABAN 5 MG TABLET PO SCH ×2 (10:49→22:34)
[2018-02-19] MEDS: POLYETHYLENE GLYCOL 3350 119 GM BTL PO SCH ×2 (10:49→22:35)
--- NOTE | 2018-02-19 11:57 | PN ---
Progress Note, Physician History of Present Illness: Ambulating with assistance Reports less back pain No c/o R blackwell pain Afebrile Tolerating antibiotics - Current Medication List Current Medications: Active Medications Apixaban (Eliquis -) 5 mg PO BID [facility] Last Admin: 02/19/18 10:49 Dose: 5 mg Ascorbic Acid (Vitamin C -) 500 mg PO DAILY [facility] Last Admin: 02/19/18 10:46 Dose: 500 mg Budesonide/Formoterol Fumarate (Symbicort 80/4.5mcg -) 2 puff IH BID [facility] Last Admin: 02/19/18 10:45 Dose: 2 puff Cyanocobalamin (Vitamin B12 -) 2,500 mcg PO DAILY [facility] Last Admin: 02/19/18 10:46 Dose: 2,500 mcg Docusate Sodium (Colace -) 100 mg PO HS [facility] Last Admin: 02/18/18 22:14 Dose: Not Given Escitalopram Oxalate (Lexapro -) 20 mg PO DAILY [facility] Stop: 02/22/18 19:02 Last Admin: 02/19/18 10:47 Dose: 20 mg Ferrous Sulfate (Feosol -) 325 mg PO DAILY [facility] Last Admin: 02/19/18 10:47 Dose: 325 mg IV Flush (Picc Line Flush) 8 ml IVPUSH PRN PRN PRN Reason: Protocol Last Admin: 02/16/18 02:57 Dose: 8 ml Daptomycin 600 mg/ Sodium (Chloride) 100 mls @ 200 mls/hr IVPB DAILY [facility] Last Admin: 02/18/18 11:26 Dose: 200 mls/hr Meropenem 500 mg/ Sodium (Chloride) 100 mls @ 200 mls/hr IVPB Q8H-IV [facility] Last Admin: 02/19/18 02:50 Dose: 200 mls/hr Lactobacillus Acidophilus (Bacid -) 1 tab PO BID [facility] Last Admin: 02/19/18 10:48 Dose: 1 tab Levothyroxine Sodium (Synthroid -) 50 mcg PO DAILY@0700 [facility] Last Admin: 02/19/18 06:41 Dose: 50 mcg Lidocaine (Lidoderm Patch -) 1 patch TP DAILY [facility] Last Admin: 02/19/18 10:45 Dose: 1 patch Losartan Potassium (Cozaar -) 50 mg PO DAILY [facility] Last Admin: 06/14/18 10:47 Dose: 50 mg Magnesium Chloride (Slow-Mag -) 128 mg PO DAILY [facility] Last Admin: 02/19/18 10:48 Dose: 128 mg Metoprolol Succinate (Toprol Xl -) 50 mg PO DAILY [facility] Last Admin: 02/19/18 10:45 Dose: 50 mg Miscellaneous (Lidoderm Patch Removal) 1 each MC DAILY@2200 [facility] Last Admin: 02/18/18 22:06 Dose: 1 each Morphine Sulfate (Msir -) 15 mg PO Q12H PRN PRN Reason: PAIN LEVEL 6-10 Last Admin: 02/19/18 06:40 Dose: 15 mg Pantoprazole Sodium (Protonix -) 40 mg PO DAILY [facility] Last Admin: 02/19/18 10:47 Dose: 40 mg Polyethylene Glycol (Miralax (For Daily Use) -) 17 gm PO BID [facility] Last Admin: 02/19/18 10:49 Dose: Not Given Pramipexole Dihydrochloride (Mirapex -) 0.25 mg PO BID [facility] Last Admin: 02/19/18 10:48 Dose: 0.25 mg Pregabalin (Lyrica -) 150 mg PO BID [facility] Last Admin: 02/19/18 10:45 Dose: 150 mg Rosuvastatin Calcium (Crestor -) 10 mg PO [facility] Last Admin: 02/18/18 22:05 Dose: 10 mg Senna (Senna -) 2 tab PO [facility] Last Admin: 02/18/18 22:14 Dose: Not Given Solifenacin (Vesicare -) 10 mg PO DAILY [facility] Last Admin: 02/19/18 10:46 Dose: 10 mg - Objective Vital Signs: Vital Signs Temperature 97.9 F 02/18/18 21:34 Pulse Rate 95 H 02/18/18 21:34 Respiratory Rate 18 02/18/18 21:34 Blood Pressure 155/78 02/18/18 21:34 O2 Sat by Pulse Oximetry (%) 95 02/18/18 09:00 Constitutional: Yes: No Distress Eyes: Yes: Conjunctiva Clear Cardiovascular: Yes: Regular Rate and Rhythm, S1, S2 Respiratory: Yes: CTA Bilaterally Gastrointestinal: Yes: Normal Bowel Sounds, Soft. No: Tenderness Extremities: Yes: Other (Erythema R pretibial area nearly all resolved) Labs: CBC, BMP 02/19/18 06:00 02/19/18 06:45 INR, PTT INR 1.88 (0.82-1.09) H 02/08/18 06:45 Assessment/Plan ? cellulitis R LE improved Discitis/ vertebral osteomyelitis L5S1 Discontinue daptomycin/ meropenem Resume vancomycin/ cefepime Day #30/42 empiric tx discitis/ vertebral osteomyelitis Monitor ESR/CRP
[2018-02-19] MEDS: DAPTOMYCIN 600 MG in SODIUM CHLORIDE 100 ML IVPB SCH (12:20)
[2018-02-19] MEDS ORDERED: VANCOMYCIN 1 GM PREMIX - 1 GM/200 ML BAG IVPB SCH (13:00)
--- NOTE | 2018-02-19 13:30 | PN ---
Progress Note, Physician Chief Complaint: Ms Davies has no new complaints. Pain in her feet unchanged. No cp, sob, n/v. - Current Medication List Current Medications: Active Medications Apixaban (Eliquis -) 5 mg PO BID [facility] Last Admin: 02/19/18 10:49 Dose: 5 mg Ascorbic Acid (Vitamin C -) 500 mg PO DAILY [facility] Last Admin: 02/19/18 10:46 Dose: 500 mg Budesonide/Formoterol Fumarate (Symbicort 80/4.5mcg -) 2 puff IH BID [facility] Last Admin: 02/19/18 10:45 Dose: 2 puff Cyanocobalamin (Vitamin B12 -) 2,500 mcg PO DAILY [facility] Last Admin: 02/19/18 10:46 Dose: 2,500 mcg Docusate Sodium (Colace -) 100 mg PO HS [facility] Last Admin: 02/18/18 22:14 Dose: Not Given Escitalopram Oxalate (Lexapro -) 20 mg PO DAILY [facility] Stop: 02/22/18 19:02 Last Admin: 02/19/18 10:47 Dose: 20 mg Ferrous Sulfate (Feosol -) 325 mg PO DAILY [facility] Last Admin: 02/19/18 10:47 Dose: 325 mg IV Flush (Picc Line Flush) 8 ml IVPUSH PRN PRN PRN Reason: Protocol Last Admin: 02/16/18 02:57 Dose: 8 ml Vancomycin HCl (Vancomycin 1 Gm Premix -) 1 gm in 200 mls @ 200 mls/hr IVPB DAILY@1300 [facility]ICO[facility]; Protocol Cefepime HCl (Maxipime 1 Gm Premix Ivpb) 1 gm in 50 mls @ 100 mls/hr IVPB BID [facility]; Protocol Lactobacillus Acidophilus (Bacid -) 1 tab PO BID [facility] Last Admin: 02/19/18 10:48 Dose: 1 tab Levothyroxine Sodium (Synthroid -) 50 mcg PO DAILY@0700 [facility] Last Admin: 02/19/18 06:41 Dose: 50 mcg Lidocaine (Lidoderm Patch -) 1 patch TP DAILY [facility] Last Admin: 02/19/18 10:45 Dose: 1 patch Losartan Potassium (Cozaar -) 50 mg PO DAILY [facility] Last Admin: 02/19/18 10:47 Dose: 50 mg Magnesium Chloride (Slow-Mag -) 128 mg PO DAILY [facility] Last Admin: 02/19/18 10:48 Dose: 128 mg Metoprolol Succinate (Toprol Xl -) 50 mg PO DAILY [facility] Last Admin: 02/19/18 10:45 Dose: 50 mg Miscellaneous (Lidoderm Patch Removal) 1 each MC DAILY@2200 [facility] Last Admin: 02/18/18 22:06 Dose: 1 each Morphine Sulfate (Msir -) 15 mg PO Q12H PRN PRN Reason: PAIN LEVEL 6-10 Last Admin: 02/19/18 06:40 Dose: 15 mg Pantoprazole Sodium (Protonix -) 40 mg PO DAILY [facility] Last Admin: 02/19/18 10:47 Dose: 40 mg Polyethylene Glycol (Miralax (For Daily Use) -) 17 gm PO BID [facility] Last Admin: 02/19/18 10:49 Dose: Not Given Pramipexole Dihydrochloride (Mirapex -) 0.25 mg PO BID [facility] Last Admin: 02/19/18 10:48 Dose: 0.25 mg Pregabalin (Lyrica -) 150 mg PO BID [facility] Last Admin: 02/19/18 10:45 Dose: 150 mg Rosuvastatin Calcium (Crestor -) 10 mg PO HS [facility] Last Admin: 02/18/18 22:05 Dose: 10 mg Senna (Senna -) 2 tab PO [facility] Last Admin: 02/18/18 22:14 Dose: Not Given Solifenacin (Vesicare -) 10 mg PO DAILY [facility] Last Admin: 02/19/18 10:46 Dose: 10 mg - Objective Vital Signs: Vital Signs Temperature 36.7 C 02/19/18 10:00 Pulse Rate 75 02/19/18 10:00 Respiratory Rate 18 02/19/18 10:00 Blood Pressure 139/62 02/19/18 10:00 O2 Sat by Pulse Oximetry (%) 95 02/18/18 09:00 Constitutional: Yes: Well Nourished, No Distress, Calm Cardiovascular: Yes: Regular Rate and Rhythm. No: Gallop, Murmur, Rub Respiratory: Yes: Regular, CTA Bilaterally. No: Rales, Rhonchi, Wheezes Gastrointestinal: Yes: Normal Bowel Sounds, Soft. No: Distention, Tenderness Extremities: Yes: WNL Edema: No Labs: CBC, BMP 02/19/18 06:00 02/19/18 06:45 INR, PTT INR 1.88 (0.82-1.09) H 02/08/18 06:45 Problem List - Problems (1) Leg pain Code(s): M79.606 - PAIN IN LEG, UNSPECIFIED Qualifiers: Laterality: bilateral Qualified Code(s): M79.604 - Pain in right leg; M79.605 - Pain in left leg (2) CAD (coronary artery disease) Code(s): I25.10 - ATHSCL HEART DISEASE OF [place] CORONARY ARTERY W/O ANG PCTRS (3) COPD (chronic obstructive pulmonary disease) Code(s): J44.9 - CHRONIC OBSTRUCTIVE PULMONARY DISEASE, UNSPECIFIED (4) HLD (hyperlipidemia) Code(s): E78.5 - HYPERLIPIDEMIA, UNSPECIFIED (5) HTN (hypertension) Code(s): I10 - ESSENTIAL (PRIMARY) HYPERTENSION Qualifiers: Hypertension type: essential hypertension Qualified Code(s): I10 - Essential (primary) hypertension (6) Hypothyroid Code(s): E03.9 - HYPOTHYROIDISM, UNSPECIFIED Assessment/Plan (1) Leg pain Code(s): M79.606 - PAIN IN LEG, UNSPECIFIED Qualifiers: Laterality: bilateral Qualified Code(s): M79.604 - Pain in right leg; M79.605 - Pain in left leg (2) CAD (coronary artery disease) Code(s): I25.10 - ATHSCL HEART DISEASE OF [place] CORONARY ARTERY W/O ANG PCTRS (3) COPD (chronic obstructive pulmonary disease) Code(s): J44.9 - CHRONIC OBSTRUCTIVE PULMONARY DISEASE, UNSPECIFIED (4) HLD (hyperlipidemia) Code(s): E78.5 - HYPERLIPIDEMIA, UNSPECIFIED (5) HTN (hypertension) Code(s): I10 - ESSENTIAL (PRIMARY) HYPERTENSION Qualifiers: Hypertension type: essential hypertension Qualified Code(s): I10 - Essential (primary) hypertension (6) Hypothyroid Code(s): E03.9 - HYPOTHYROIDISM, UNSPECIFIED (7) Cellulitis Plan -change back to vancomycin and cefepime -continue for 12 more days -replace PICC line -discharge once bed available and PICC line replaced
[2018-02-19] MEDS ORDERED: CEFEPIME HCL/D5W 1 GM/50 ML BAG IVPB SCH (22:00)
[2018-02-19] MEDS: LIDOCAINE PATCH REMOVAL MC SCH (22:33)
[2018-02-19] MEDS: DOCUSATE SODIUM 100 MG CAPSULE (FP) PO SCH (22:34)
[2018-02-19] MEDS: ROSUVASTATIN CA 10 MG TABLET (FP) PO SCH (22:34)
[2018-02-19] MEDS: SENNOSIDES 8.6MG TABLET (FP) PO SCH (22:35)
[2018-02-19] MEDS: CEFEPIME HCL/D5W 1 GM/50 ML BAG IVPB SCH (22:35)
[2018-02-20] MEDS: LEVOTHYROXINE NA 50 MCG TABLET (FP) PO SCH (06:44)
[2018-02-20] MEDS: morphine SULFATE IMMEDIATE RELEASE 30 MG TAB PO PRN (06:44)
[2018-02-20] MEDS ORDERED: PT OWN MED DRAWER 7, Y5N ONE (09:17)
[2018-02-20] MEDS: CYANOCOBALAMIN 1,000 MCG TABLET (FP) PO SCH (09:23)
[2018-02-20] MEDS: LACTOBACILLUS ACIDOPHILUS 1 TABLET PO SCH (09:23)
[2018-02-20] MEDS: BUDESONIDE/FORMETEROL FUMARATE 80/4.5 mcg INHALER IH SCH (09:23)
[2018-02-20] MEDS: PREGABALIN 75 MG CAPSULE PO SCH (09:23)
[2018-02-20] MEDS: SOLIFENACIN SUCCINATE 5 MG TAB (FP) PO SCH (09:24)
[2018-02-20] MEDS: FERROUS SO4 325 MG TABLET (FP) PO SCH (09:24)
[2018-02-20] MEDS: ASCORBIC ACID 500 MG TABLET (FP) PO SCH (09:24)
[2018-02-20] MEDS: PANTOPRAZOLE 40 MG TABLET (FP) PO SCH (09:24)
[2018-02-20] MEDS: LOSARTAN POTASSIUM 50 MG TABLET (FP) PO SCH (09:25)
[2018-02-20] MEDS: ESCITALOPRAM OXALATE 10 MG TABLET (FP) PO SCH (09:25)
[2018-02-20] MEDS: APIXABAN 5 MG TABLET PO SCH (09:25)
[2018-02-20] MEDS: MAGNESIUM CL 64 MG TABLET.SA PO SCH (09:25)
[2018-02-20] MEDS: PRAMIPEXOLE DIHYDROCHLORIDE 0.25 MG TABLET PO SCH (09:25)
[2018-02-20] MEDS: CEFEPIME HCL/D5W 1 GM/50 ML BAG IVPB SCH (09:26)
[2018-02-20] MEDS: LIDOCAINE 5% TOPICAL PATCH TP SCH (09:26)
[2018-02-20] MEDS: POLYETHYLENE GLYCOL 3350 119 GM BTL PO SCH (09:28)
[2018-02-20 11:20] VITALS: BP 132/72; PULSE 80; TEMP 98.4
--- NOTE | 2018-02-20 12:56 | DS ---
Physical Examination Vital Signs: Vital Signs Temperature 36.9 C 02/20/18 10:00 Pulse Rate 80 02/20/18 10:00 Respiratory Rate 18 02/20/18 10:00 Blood Pressure 132/72 02/20/18 10:00 O2 Sat by Pulse Oximetry (%) 95 02/19/18 21:00 Constitutional: Yes: Well Nourished, No Distress, Calm Cardiovascular: Yes: Regular Rate and Rhythm. No: Gallop, Murmur, Rub Respiratory: Yes: Regular, CTA Bilaterally. No: Rales, Rhonchi, Wheezes Gastrointestinal: Yes: Normal Bowel Sounds, Soft. No: Distention, Tenderness Extremities: Yes: WNL Edema: No Labs: CBC, BMP 02/19/18 06:00 02/19/18 06:45 Discharge Summary Reason For Visit: BACK PAIN Current Active Problems COPD (chronic obstructive pulmonary disease) (Acute) Discitis of lumbosacral region (Acute) Erythema of lower extremity (Acute) Leg pain (Acute) Hospital Course: (1) Leg pain Code(s): M79.606 - PAIN IN LEG, UNSPECIFIED Qualifiers: Laterality: bilateral Qualified Code(s): M79.604 - Pain in right leg; M79.605 - Pain in left leg (2) CAD (coronary artery disease) Code(s): I25.10 - ATHSCL HEART DISEASE OF [place] CORONARY ARTERY W/O ANG PCTRS (3) COPD (chronic obstructive pulmonary disease) Code(s): J44.9 - CHRONIC OBSTRUCTIVE PULMONARY DISEASE, UNSPECIFIED (4) HLD (hyperlipidemia) Code(s): E78.5 - HYPERLIPIDEMIA, UNSPECIFIED (5) HTN (hypertension) Code(s): I10 - ESSENTIAL (PRIMARY) HYPERTENSION Qualifiers: Hypertension type: essential hypertension Qualified Code(s): I10 - Essential (primary) hypertension (6) Hypothyroid Code(s): E03.9 - HYPOTHYROIDISM, UNSPECIFIED Ms Daveis is a 78 year old female who comes in with worsening leg and back pain. She was seen by neurosurgery, neurology, and ID. She was continued on her antibiotics for discitis and her medications were adjusted. She had an episode of cellulitis and her IV antibiotics were changed, her cellulitis resolved. She is now safe for discharge to SNF for PT and to finish up her course of antibiotics. 33 minutes spent in preparation of this discharge Condition: Good - Instructions Diet, Activity, Other Instructions: Sodium controlled diet. Up with assistance, further activity per PT at SNF. Will need 12 more days of cefepime and vancomycin. Referrals: Juan Castro MD [Staff Physician] - Edy Ibrahim MD [Staff Physician] - Aureliano Henry MD [Staff Physician] - Karma Rogel MD [Staff Physician] - Disposition: [facility] - Home Medications Comprehensive Discharge Medication List: Ambulatory Orders Alendronate Sodium 70 mg PO WEEKLY 10/16/11 Ferrous Fumarate [Iron] 325 mg PO DAILY 10/16/11 Levothyroxine [Synthroid -] 50 mcg PO DAILY 10/16/11 Metoprolol "Xl" (Sustain Act) [Toprol Xl] 50 mg PO DAILY 10/16/11 Rosuvastatin [Crestor -] 10 mg PO HS #0 01/06/14 Cyanocobalamin [Vitamin B12 -] 2,500 mcg PO DAILY 06/07/14 Losartan Potassium 50 mg PO DAILY 06/07/14 Pantoprazole Sodium [Protonix] 40 mg PO DAILY 06/07/14 Pramipexole Di-HCl [Mirapex] 0.25 mg PO BID 06/07/14 Apixaban [Eliquis] 5 mg PO BID 11/18/17 Ascorbate Calcium [Vitamin C] 500 mg PO DAILY 11/18/17 Solifenacin Succinate [Vesicare -] 10 mg PO DAILY 11/18/17 Albuterol 2.5/Ipratropium 0.5 [Duoneb -] 1 amp NEB RTID #0 amp 11/21/17 Budesonide/Formeterol Fumarate [SYMBICORT 80/4.5mcg -] 2 puff IH BID inhaler Acetaminophen [Tylenol .Regular Strength -] 650 mg PO Q6H PRN tablet 01/23/18 Lidocaine 5% Patch [Lidoderm -] 1 patch TP DAILY patch 01/23/18 Lidocaine Patch Removal [Lidoderm Patch Removal] 1 each MC DAILY@2200 each Picc Line Flush [Picc Line Flush -] 8 ml IVPUSH PRN PRN ml 01/23/18 Polyethylene Glycol 3350 [Miralax 119 gm Btl -] 17 gm PO BID bottle 01/23/18 Sennosides [Senna -] 2 tab PO HS tablet 01/23/18 Docusate Sodium [Colace -] 100 mg PO HS 02/05/18 Heparin Sodium,Porcine/Pf [Heparin Lock Flush 10 Units/ml] 5 ml IV BID 02/05/18 L. Acidophilus/Pectin, [place] [Acidophilus Probiotic Capsule] 250 mg PO BID Nitroglycerin [Nitrostat] 0.4 mg SL PRN PRN 02/05/18 Cefepime [Maxipime 2Gm Ivpb (Pre-Docked)] 2 gm IV BID 12 Days #0 bag 02/19/18 Escitalopram Oxalate [Lexapro -] 20 mg PO DAILY tablet 02/19/18 Magnesium Chloride [Slow-Mag -] 128 mg PO DAILY tab.sa 02/19/18 Morphine *Immediate Release* [Msir -] 15 mg PO Q12H PRN tab MDD 30mg 02/19/18 Pregabalin [Lyrica -] 150 mg PO BID cap MDD 300mg 02/19/18 Vancomycin 1 Gram (Pre-Docked) [Vancomycin (Pre-Docked)] 1,000 mg IVPB BID 12 Days bag 02/19/18
== END 2018-02-20 14:06 | DRG 540 ==
LOC: JER 11:27 → JERBED 14:32 → J5S 21:27 → OBSVTOIN 02-06 10:00 → J5S 02-11 20:09
PROVIDERS: ADMIT Internal Medicine; ATTEND Internal Medicine
PROC: 05PY33Z Removal of Infusion Device from Upper Vein, Percutaneous Approach (ICD-10-PCS; principal; 2018-02-20)
PROC: 02HV33Z Insertion of Infusion Device into Superior Vena Cava, Percutaneous Approach (ICD-10-PCS; 2018-02-20)
PROC: B518ZZA Fluoroscopy of Superior Vena Cava, Guidance (ICD-10-PCS; 2018-02-20)
DX: M46.27 Osteomyelitis of vertebra, lumbosacral region (principal); L03.116 Cellulitis of left lower limb; T82.898A Other specified complication of vascular prosthetic devices, implants and grafts, initial encounter; Y83.8 Other surgical procedures as the cause of abnormal reaction of the patient, or of later complication, without mention of misadventure at the time of the procedure; M46.47 Discitis, unspecified, lumbosacral region; M43.17 Spondylolisthesis, lumbosacral region; M48.07 Spinal stenosis, lumbosacral region; I25.10 Atherosclerotic heart disease of native coronary artery without angina pectoris; I10 Essential (primary) hypertension; J44.9 Chronic obstructive pulmonary disease, unspecified; E03.9 Hypothyroidism, unspecified; E78.5 Hyperlipidemia, unspecified; D64.9 Anemia, unspecified; Z90.12 Acquired absence of left breast and nipple; M19.90 Unspecified osteoarthritis, unspecified site; I44.0 Atrioventricular block, first degree; Z96.653 Presence of artificial knee joint, bilateral; E88.09 Other disorders of plasma-protein metabolism, not elsewhere classified; E83.42 Hypomagnesemia; Z85.3 Personal history of malignant neoplasm of breast; M25.511 Pain in right shoulder; E66.9 Obesity, unspecified; Z68.32 Body mass index [BMI] 32.0-32.9, adult
CPT/HCPCS: 36415; 36584; 71045-TC-FY; 72148-TC; 77001-TC-FY; 80048; 80053; 81003; 82550; 82607; 82784; 82962; 83036; 83735; 83880; 84100; 84155; 84165; 84443; 84484; 85025; 85027; 85610; 85651; 85730; 86038; 86140; 87086; 93005; 93010; 94010; 94640; 95860-TC; 97116-GP; 97161-GP; 99284-25; C1751; G0378; G0480; J0878; J7620

== ENCOUNTER 2019-11-03 08:02 | Inpatient (IN) | payer OTHER, MEDICARE ==
[2019-11-02 13:34] VITALS: BMI 35.2
[2019-11-03] MEDS ORDERED: NITROGLYCERIN SUBLINGUAL 1/150 0.4 MG TAB SL PRN (08:07)
--- NOTE | 2019-11-03 08:10 | HP ---
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: Yes: Peripheral Neuropathy, TIA Cardiovascular: Yes: AFIB, CAD, HTN, Hyperlipdemia Pulmonary: Yes: Asthma, COPD Gastrointestinal: Yes: GERD Heme/Onc: Yes: Anemia Endocrine: Yes: Hypothyroidism - Current Medications Current Medications: Home Medications Medication Instructions Recorded Ferrous Fumarate [Iron] 325 mg PO DAILY 10/16/11 Levothyroxine [Synthroid -] 50 mcg PO DAILY 10/16/11 Metoprolol "Xl" (Sustain Act) 50 mg PO DAILY 10/16/11 [Toprol Xl] Rosuvastatin [Crestor -] 10 mg PO HS #0 01/06/14 Cyanocobalamin [Vitamin B12 -] 2,500 mcg PO DAILY 06/07/14 Losartan Potassium 50 mg PO DAILY 06/07/14 Pramipexole Di-HCl [Mirapex] 0.25 mg PO BID 06/07/14 Apixaban [Eliquis] 5 mg PO BID 11/18/17 Ascorbate Calcium [Vitamin C] 500 mg PO DAILY 11/18/17 Albuterol 2.5/Ipratropium 0.5 1 amp NEB RTID #0 amp 11/21/17 [Duoneb -] Budesonide/Formeterol Fumarate 2 puff IH BID inhaler 11/21/17 [SYMBICORT 80/4.5mcg -] Nitroglycerin [Nitrostat] 0.4 mg SL PRN PRN 02/05/18 Escitalopram Oxalate [Lexapro -] 20 mg PO DAILY tablet 02/19/18 Pregabalin [Lyrica -] 150 mg PO BID cap MDD 300mg 02/19/18 Calcium Carbonate/Vitamin D3 1 each PO DAILY 11/02/19 [Calcium 600+D Softgel] Tramadol HCl/Acetaminophen 1 each PO DAILY 11/02/19 [Tramadol-Acetaminophn 37.5-325] Satellite Physical Exam - Physical Examination General Appearance: Well Nourished, Well Developed, Alert & Oriented x3 ENT: Clear Lung: Normal air movement Extremities: Other (right shoulder- + ttp ,dec rom , nvi) Neurological: Intact, Alert, Oriented Satellite Impression/Plan - Impression/Plan Impression: right shoulder djd, chronic RC arthropathy Operative Procedure: right reverse TSA Date to be Performed: 11/03/19
[2019-11-03 09:16] LABS: EPI CELLS 16.1 /HPF (0-5/HPF); HYALINE CASTS 5 /lpf (0-8); PH,URINE 6.5 (5.0-8.0); URINE APPEARANCE CLOUDY; URINE BACTERIA 158.1 /hpf (NEGATIVE); URINE BILIRUBIN NEGATIVE (NEGATIVE); URINE COLOR YELLOW; URINE GLUCOSE (UA) NEGATIVE (NEGATIVE); URINE KETONE NEGATIVE (NEGATIVE); URINE LEUK ESTERASE 1+ (NEGATIVE); URINE NITRITE NEGATIVE (NEGATIVE); URINE PROTEIN NEGATIVE (NEGATIVE); URINE RBC 2 /hpf (0-4); URINE UROBILINOGEN 0.2 mg/dL (0.2-1.0); URINE WBC 10 /hpf (0-5)
[2019-11-03] MEDS ORDERED: BUPIVACAINE LIPOSOME/PF (EXPAREL) 266 MG/20 ML VIAL ONE (09:42)
[2019-11-03] MEDS ORDERED: MIDAZOLAM HCL 2 MG/2 ML SINGLE DOSE VIAL ONE ×2 (09:44)
[2019-11-03] MEDS ORDERED: ALBUTEROL SO4 0.083% IH SOL 2.5 MG/3 ML VIAL.NEB. NEB ONE ×2 (11:00→11:19)
[2019-11-03] MEDS ORDERED: BUDESONIDE 0.25 MG/2ML INH SUSP VIAL NEB ONE (11:18)
--- NOTE | 2019-11-03 15:04 | CONSULT ---
Consultation: REQUESTING PROVIDER: Dr. Rucker CONSULT REQUEST: We have been asked to medically evaluate this patient for shortness of breath. HISTORY OF PRESENT ILLNESS: Patient is an 79 year old female with past medical history of anemia, breast CA s/p left lumpectomy, MVP, atrial fibrillation, HTN, HLD, GERD and hypothyroidism, presented today due to shortness of breath during surgery. Patient is scheduled for Right total shoulder replacement today. As per patient and PACU nurse, after nerve block was done, patient asked for a bed hill because she needed to go. As soon as they removed the bed hill, patient suddenly became tachypneic and ?passed out. Patient denies any recent illness, denies fevers, chills, headache, dizziness, chest pain, SOB, abdominal pain, diarrhea, urinary symptoms. This episode lasted a few minutes, and upon seeing the patient on PACU, patient is sitting comfortably in bed and has no complaints. PMHx: anemia, breast CA s/p left lumpectomy, MVP, atrial fibrillation, HTN, HLD, GERD and hypothyroidism PSHx: b/l knee replacement, hip replacement Allergies: NKDA Social Hx: denies smoking, etoh drinking or illicit drug use PCP: Dr. Henry REVIEW OF SYSTEMS: CONSTITUTIONAL: Absent: fever, chills, diaphoresis, generalized weakness, malaise, loss of appetite, weight change HEENT: Absent: rhinorrhea, nasal congestion, throat pain, throat swelling, difficulty swallowing, mouth swelling, ear pain, eye pain, visual changes CARDIOVASCULAR: Absent: chest pain, syncope, palpitations, irregular heart rate, lightheadedness, peripheral edema RESPIRATORY: shortness of breath Absent: cough, dyspnea with exertion, orthopnea, wheezing, stridor, hemoptysis GASTROINTESTINAL: Absent: abdominal pain, abdominal distension, nausea, vomiting, diarrhea, constipation, melena, hematochezia GENITOURINARY: Absent: dysuria, frequency, urgency, hesitancy, hematuria, flank pain, genital pain MUSCULOSKELETAL: Absent: myalgia, arthralgia, joint swelling, back pain, neck pain SKIN: Absent: rash, itching, pallor HEMATOLOGIC/IMMUNOLOGIC: Absent: easy bleeding, easy bruising, lymphadenopathy, frequent infections ENDOCRINE: Absent: unexplained weight gain, unexplained weight loss, heat intolerance, cold intolerance NEUROLOGIC: Absent: headache, focal weakness or paresthesias, dizziness, unsteady gait, seizure, mental status changes, bladder or bowel incontinence PSYCHIATRIC: Absent: anxiety, depression, suicidal or homicidal ideation, hallucinations. PHYSICAL EXAMINATION Vital Signs - 24 hr 11/03/19 11/03/19 11/03/19 08:37 11:32 11:45 Temperature 98.7 F 98.0 F Pulse Rate 60 66 60 Respiratory 14 28 H 28 H Rate Blood Pressure 147/69 159/81 141/67 O2 Sat by Pulse 96 98 97 Oximetry (%) 11/03/19 11/03/19 11/03/19 12:00 12:15 12:30 Temperature Pulse Rate 65 62 63 Respiratory 28 H 26 H 24 H Rate Blood Pressure 144/67 136/76 127/79 O2 Sat by Pulse 96 96 97 Oximetry (%) 11/03/19 11/03/19 11/03/19 12:45 13:00 13:15 Temperature Pulse Rate 66 62 64 Respiratory 28 H 26 H 26 H Rate Blood Pressure 124/81 134/62 124/61 O2 Sat by Pulse 95 96 96 Oximetry (%) 11/03/19 13:25 Temperature 98.5 F Pulse Rate 62 Respiratory 22 H Rate Blood Pressure 101/70 O2 Sat by Pulse 96 Oximetry (%) GENERAL: Awake, alert, and fully oriented, on 2L NC HEAD: Normal with no signs of trauma. EYES:PERRLA, EOMI, sclera anicteric, conjunctiva clear. EARS, NOSE, THROAT: Moist mucous membranes. NECK: Normal range of motion, supple LUNGS: Breath sounds equal, clear to auscultation bilaterally. HEART: Regular rate and rhythm, normal S1 and S2 without murmur, rub or gallop. ABDOMEN: Soft, nontender, not distended, normoactive bowel sounds. MUSCULOSKELETAL: Normal range of motion at all joints. LOWER EXTREMITIES: 2+ pulses, warm, well-perfused. NEUROLOGICAL: Cranial nerves II-XII intact. Normal speech. PSYCHIATRIC: Cooperative. Good eye contact. Appropriate mood and affect. SKIN: Warm, dry, normal turgor. Laboratory Results - last 24 hr 11/03/19 08:08 Urine Color Yellow Urine Appearance Cloudy Urine pH 6.5 Ur Specific [place] 1.019 Urine Protein Negative Urine Glucose (UA) Negative Urine Ketones Negative Urine Blood Negative Urine Nitrite Negative Urine Bilirubin Negative Urine Urobilinogen 0.2 Ur Leukocyte Esterase 1+ H Urine WBC (Auto) 10 Urine RBC (Auto) 2 Urine Casts (Auto) 5 U Epithel Cells (Auto) 16.1 Urine Bacteria (Auto) 158.1 Active Medications Generic Name Dose Route Start Last Admin Trade Name Freq PRN Reason Stop Dose Admin Albuterol/Ipratropium 1 amp 11/03/19 14:00 Duoneb - NEB RTID NICOLE Apixaban 5 mg 11/04/19 10:00 Eliquis - PO BID [facility] Budesonide/Formoterol Fumarate 2 puff 11/03/19 10:00 Symbicort 80/4.5mcg - IH BID [facility] Escitalopram Oxalate 20 mg 11/03/19 10:00 Lexapro - PO DAILY [facility] Ferrous Sulfate 325 mg 11/03/19 10:00 Feosol - PO DAILY [facility] Levothyroxine Sodium 50 mcg 11/03/19 10:00 Synthroid - PO ACBK NICOLE Losartan Potassium 50 mg 11/03/19 10:00 Cozaar - PO DAILY [facility] Metoprolol Succinate 50 mg 11/03/19 10:00 Toprol Xl - PO DAILY [facility] Nitroglycerin 0.4 mg 11/03/19 08:07 Nitrostat - SL PRN PRN pain Pramipexole Dihydrochloride 0.25 mg 11/03/19 10:00 Mirapex - PO BID [facility] Pregabalin 150 mg 11/03/19 10:00 Lyrica - PO BID [facility] Rosuvastatin Calcium 10 mg 11/03/19 22:00 Crestor - PO HS [facility] ASSESSMENT/PLAN: Patient is an 79 year old female with past medical history of anemia, breast CA s/p left lumpectomy, MVP, atrial fibrillation, HTN, HLD, GERD and hypothyroidism, presented today due to shortness of breath during surgery. #Shortness of breath -likely 2/2 asthma -surgery held for now -cardio clearance done prior to surgery, stress test was done -will continue home duonebs and symbicort -supplemental O2 to keep SpO2 >90% #Hx of atrial fibrillation -Continue eliquis 5mg bid -continue Toprol XL 50mg daily #HTN -continue Losartan 50mg and Toprol XL 50mg #HLD -continue Crestor 10mg Po HS #Hypothyroidism -continue Synthroid 50mcg #FEN -Not on any standing fluids -electrolytes wnl, routine bmp monitoring -Sodium restricted diet #Prophylaxis -Eliquis 5mg bid #Disposition -admit to tele Dispo: We will continue to follow the patient. Thank you for this consultative opportunity. Visit type - Emergency Visit Emergency Visit: Yes ED Registration Date: 11/03/19 Care time: The patient presented to the Emergency Department on the above date and was hospitalized for further evaluation of their emergent condition. - New Patient This patient is new to me today: Yes Date on this admission: 11/04/19 - Critical Care Critical Care patient: No ATTENDING PHYSICIAN STATEMENT I saw and evaluated the patient. I reviewed the resident's note and discussed the case with the resident. I agree with the resident's findings and plan as documented. SUBJECTIVE: OBJECTIVE: ASSESSMENT AND PLAN:
--- NOTE | 2019-11-03 15:10 | PN ---
Teaching Attending Note Name of Resident: Betty Henderson ATTENDING PHYSICIAN STATEMENT I saw and evaluated the patient. I reviewed the resident's note and discussed the case with the resident. I agree with the resident's findings and plan as documented. SUBJECTIVE: Patient is an 79 year old female with past medical history of anemia, breast CA s/p left lumpectomy, MVP, atrial fibrillation, HTN, HLD, GERD and hypothyroidism , presented today due to shortness of breath during surgery. Patient is scheduled for Right total shoulder replacement today. As per patient and PACU nurse, after nerve block was done, patient asked for a bed hill because she needed to go. As soon as they removed the bed hill, patient suddenly became tachypneic and ?passed out. Patient denies any recent illness, denies fevers, chills, headache, dizziness, chest pain, SOB, abdominal pain, diarrhea, urinary symptoms. This episode lasted a few minutes, and upon seeing the patient on PACU , patient is sitting comfortably in bed and has no complaints. PMHx: anemia, breast CA s/p left lumpectomy, MVP, atrial fibrillation, HTN, HLD , GERD and hypothyroidism PSHx: b/l knee replacement, hip replacement Allergies: NKDA Social Hx: denies smoking, etoh drinking or illicit drug use PCP: Dr. Henry OBJECTIVE:o/e is comfortable, nad, alert awake oriented vss neck supple no jvd cvs s1/s2/0 chest ctab abd soft, nt no.bs ext no c/c/e neuro non focal ASSESSMENT AND PLAN: ASSESSMENT/PLAN: Patient is an 79 year old female with past medical history of anemia, breast CA s/p left lumpectomy, MVP, atrial fibrillation, HTN, HLD, GERD and hypothyroidism , presented today due to shortness of breath during surgery. Shortness of breath -continue o2, and nebs, no need for the steroids, surgery held, and monitor the pt on tele, is clinically stable, Hx of atrial fibrillation -Continue eliquis 5mg bid, resumed as per surgery, -continue Toprol XL 50mg daily HTN -continue Losartan 50mg and Toprol XL 50mg will monitor the pt for now, and will get cxr, and fu labs, and ekg,
--- NOTE | 2019-11-03 16:33 | EKG ---
Test Reason : Blood Pressure : / mmHG Vent. Rate : 064 BPM Atrial Rate : 064 BPM P-R Int : 214 ms QRS Dur : 098 ms QT Int : 432 ms P-R-T Axes : 031 -07 024 degrees QTc Int : 445 ms SINUS RHYTHM WITH 1ST DEGREE A-V BLOCK OTHERWISE NORMAL ECG Confirmed by MD SHRUTHI, CHRISTINE ([id number]) on 11/03/2019 4:32:36 PM Referred By: Micheal Rucker Confirmed By:CHRISTINE HAWKINS MD
[2019-11-03] MEDS: ESCITALOPRAM OXALATE 10 MG TABLET PO SCH (16:52)
[2019-11-03] MEDS: FERROUS SO4 325 MG TABLET (FP) PO SCH (16:52)
[2019-11-03] MEDS: PRAMIPEXOLE DIHYDROCHLORIDE 0.25 MG TABLET PO SCH ×2 (16:52→23:21)
[2019-11-03] MEDS: PREGABALIN 75 MG CAPSULE PO SCH ×2 (16:52→23:21)
[2019-11-03] MEDS: LOSARTAN POTASSIUM 50 MG TABLET (FP) PO SCH (16:52)
[2019-11-03] MEDS: LEVOTHYROXINE NA 50 MCG TABLET (FP) PO SCH (16:53)
[2019-11-03] MEDS: BUDESONIDE/FORMETEROL FUMARATE 80/4.5 mcg INHALER IH SCH ×2 (16:53→23:22)
[2019-11-03 17:41] LABS: BASO % 0.3 % (0-2.0); EOS % 1.1 % (0-4.5); HEMATOCRIT 36.5 % (32.4-45.2); LYMPH % 33.3 % (8-40); MCH 31.2 pg (25.7-33.7); MCHC 32.9 g/dl (32.0-36.0); MEAN CELL VOLUME 94.8 fl (80-96); MEAN PLT VOLUME 8.1 fl (7.5-11.1); MONO % 8.6 % (3.8-10.2); NEUT % 56.7 % (42.8-82.8); PLATELET COUNT 152 K/MM3 (134-434); RBC 3.85 M/mm3 (3.60-5.2); RDW 14.6 % (11.6-15.6); WHITE BLOOD COUNT 6.2 K/mm3 (4.0-10.0)
[2019-11-03 18:05] LABS: ALBUMIN 3.2 g/dl (3.4-5.0); BILIRUBIN,TOTAL 0.5 mg/dL (0.2-1); BLOOD UREA NITROGEN 11.2 mg/dL (7-18); CALCIUM 8.2 mg/dL (8.5-10.1); CREATININE 0.7 mg/dL (0.55-1.3); POTASSIUM 4.3 mmol/L (3.5-5.1); TOT PROT 6.2 g/dl (6.4-8.2)
[2019-11-03] MEDS: ALBUTEROL SO4 2.5/IPRATROPIUM 0.5 INH SOL 3 ML VIAL.NEB. NEB SCH (20:44)
[2019-11-03] MEDS: ROSUVASTATIN CA 10 MG TABLET (FP) PO SCH (23:21)
[2019-11-04] MEDS: LEVOTHYROXINE NA 50 MCG TABLET (FP) PO SCH (06:05)
[2019-11-04 07:15] LABS: BASO % 0.4 % (0-2.0); EOS % 1.6 % (0-4.5); HEMATOCRIT 35.6 % (32.4-45.2); HEMOGLOBIN 11.8 GM/dL (10.7-15.3); LYMPH % 33.7 % (8-40); MCH 31.6 pg (25.7-33.7); MCHC 33.3 g/dl (32.0-36.0); MEAN PLT VOLUME 8.5 fl (7.5-11.1); MONO % 8.2 % (3.8-10.2); NEUT % 56.1 % (42.8-82.8); PLATELET COUNT 148 K/MM3 (134-434); RBC 3.75 M/mm3 (3.60-5.2); RDW 14.4 % (11.6-15.6)
--- NOTE | 2019-11-04 07:52 | PN ---
Progress Note, Physician History of Present Illness: Patient is an 79 year old female with past medical history of anemia, breast CA s/p left lumpectomy, MVP, atrial fibrillation, HTN, HLD, GERD and hypothyroidism , presented with shortness of breath during surgery. Patient is scheduled for Right total shoulder replacement today. As per patient and PACU nurse, after nerve block was done, patient asked for a bed hill because she needed to go. As soon as they removed the bed hill, patient suddenly became tachypneic and ? passed out. Patient denies any recent illness, denies fevers, chills, headache, dizziness, chest pain, SOB, abdominal pain, diarrhea, urinary symptoms. This episode lasted a few minutes, and upon seeing the patient on PACU, patient is sitting comfortably in bed and has no complaints. - Current Medication List Current Medications: Active Medications Albuterol/Ipratropium (Duoneb -) 1 amp NEB RTID [facility] Last Admin: 11/03/19 20:44 Dose: 1 amp Apixaban (Eliquis -) 5 mg PO BID [facility] Budesonide/Formoterol Fumarate (Symbicort 80/4.5mcg -) 2 puff IH BID [facility] Last Admin: 11/03/19 23:22 Dose: Not Given Escitalopram Oxalate (Lexapro -) 20 mg PO DAILY [facility] Last Admin: 11/03/19 16:52 Dose: Not Given Ferrous Sulfate (Feosol -) 325 mg PO DAILY [facility] Last Admin: 11/03/19 16:52 Dose: Not Given Levothyroxine Sodium (Synthroid -) 50 mcg PO ACBK [facility] Last Admin: 11/04/19 06:05 Dose: 50 mcg Losartan Potassium (Cozaar -) 50 mg PO DAILY [facility] Last Admin: 11/03/19 16:52 Dose: Not Given Metoprolol Succinate (Toprol Xl -) 50 mg PO DAILY [facility] Last Admin: 11/03/19 16:53 Dose: Not Given Nitroglycerin (Nitrostat -) 0.4 mg SL PRN PRN PRN Reason: pain Pramipexole Dihydrochloride (Mirapex -) 0.25 mg PO BID [facility] Last Admin: 11/03/19 23:21 Dose: 0.25 mg Pregabalin (Lyrica -) 150 mg PO BID [facility] Last Admin: 11/03/19 23:21 Dose: 150 mg Rosuvastatin Calcium (Crestor -) 10 mg PO HS [facility] Last Admin: 11/03/19 23:21 Dose: 10 mg - Objective Vital Signs: Vital Signs Temperature 98.7 F 11/04/19 06:00 Pulse Rate 58 L 11/04/19 06:00 Respiratory Rate 11/04/19 06:00 Blood Pressure 138/78 11/04/19 06:00 O2 Sat by Pulse Oximetry (%) 98 11/03/19 21:00 Labs: CBC, BMP 11/04/19 05:38 Problem List - Problems (1) TIA (transient ischemic attack) Code(s): G45.9 - TRANSIENT CEREBRAL ISCHEMIC ATTACK, UNSPECIFIED (2) GERD (gastroesophageal reflux disease) Code(s): K21.9 - GASTRO-ESOPHAGEAL REFLUX DISEASE WITHOUT ESOPHAGITIS (3) Anemia Code(s): D64.9 - ANEMIA, UNSPECIFIED (4) S/p reverse total shoulder arthroplasty Code(s): Z96.619 - PRESENCE OF UNSPECIFIED ARTIFICIAL SHOULDER JOINT (5) Prophylactic measure Code(s): Z29.9 - ENCOUNTER FOR PROPHYLACTIC MEASURES, UNSPECIFIED (6) Afib Code(s): I48.91 - UNSPECIFIED ATRIAL FIBRILLATION Qualifiers: Atrial fibrillation type: chronic (7) Asthma Code(s): J45.909 - UNSPECIFIED ASTHMA, UNCOMPLICATED (8) CAD (coronary artery disease) Code(s): I25.10 - ATHSCL HEART DISEASE OF [place] CORONARY ARTERY W/O ANG PCTRS (9) CHF (congestive heart failure) Code(s): I50.9 - HEART FAILURE, UNSPECIFIED (10) COPD (chronic obstructive pulmonary disease) Code(s): J44.9 - CHRONIC OBSTRUCTIVE PULMONARY DISEASE, UNSPECIFIED (11) Hypothyroid Code(s): E03.9 - HYPOTHYROIDISM, UNSPECIFIED (12) Breast CA Assessment/Plan: breast CA s/p left lumpectomy Code(s): C50.919 - MALIGNANT NEOPLASM OF UNSP SITE OF UNSPECIFIED FEMALE BREAST (13) MVP (mitral valve prolapse) Code(s): I34.1 - NONRHEUMATIC MITRAL (VALVE) PROLAPSE
[2019-11-04] MEDS: ALBUTEROL SO4 2.5/IPRATROPIUM 0.5 INH SOL 3 ML VIAL.NEB. NEB SCH ×3 (08:00→20:00)
[2019-11-04 08:27] LABS: ALBUMIN 3.1 g/dl (3.4-5.0); BILIRUBIN,TOTAL 0.4 mg/dL (0.2-1); BLOOD UREA NITROGEN 15.6 mg/dL (7-18); CREATININE 0.7 mg/dL (0.55-1.3); POTASSIUM 4.6 mmol/L (3.5-5.1); TOT PROT 6.1 g/dl (6.4-8.2)
--- NOTE | 2019-11-04 08:55 | PN ---
Progress Note (short form) - Note Progress Note: Patient was scheduled for R total shoulder replacement 11/03/[address] Rucker. After interscalene block placed in preop holding, patient developed SOB due to asthma attack while urinating on the bed hill. Surgery was cancelled and patient was admitted for observation. Patient still wheezing this am. RUE still numb from block. All questions answered.
[2019-11-04] MEDS: PREGABALIN 75 MG CAPSULE PO SCH ×2 (10:22→22:06)
[2019-11-04] MEDS: ESCITALOPRAM OXALATE 10 MG TABLET PO SCH (10:23)
[2019-11-04] MEDS: APIXABAN 5 MG TABLET PO SCH ×2 (10:23→22:06)
[2019-11-04] MEDS: LOSARTAN POTASSIUM 50 MG TABLET (FP) PO SCH (10:23)
[2019-11-04] MEDS: FERROUS SO4 325 MG TABLET (FP) PO SCH (10:23)
[2019-11-04] MEDS: PRAMIPEXOLE DIHYDROCHLORIDE 0.25 MG TABLET PO SCH ×2 (10:25→22:07)
[2019-11-04] MEDS: BUDESONIDE/FORMETEROL FUMARATE 80/4.5 mcg INHALER IH SCH (10:25)
--- NOTE | 2019-11-04 12:05 | PN ---
Progress Note (short form) - Note Progress Note: Pt seen and examined (from an orthopedic pov). She still complains of some difficulty breathing normally for her. She is on NC O2. Right shoulder hurts. AVSS O2 Sat 100% on room air RUE grossly NVI. Orthopedic plan: We can reconsider doing the right total shoulder replacement surgery when medically stable and cleared. If we don't do the surgery then I would recommend proceeding with cortisone and gel injections.
--- NOTE | 2019-11-04 13:27 | CON.PULM ---
Consult Consult Specialty:: PULMONARY Referred by:: FERNANDO Thomas Reason for Consultation:: shortness of breath - History of Present Illness Chief Complaint: shoulder surgery History of Present Illness: 79yo female with h/o HTN, hyperlipidemia, GERD, hypothyroidism, asthma, atrial fibrillation, h/o breast ca s/p left lumpectomy who presented electively for a total shoulder replacement. Just before surgery after receiveing nerve block, she was urinating on bed pain when she felt short of breath with chest tightness. Noted to be wheezing by anesthesia. Started on bronchodilators and steroids with improvement but still with some chest tightness. No chest pain. No fevers, chills or sweats. States she has never been hospitalized for asthma or been on steroids. - History Source History Provided By: Patient, Medical Record Limitations to Obtaining History: No Limitations - Past Medical History [employer]: Yes: Peripheral Neuropathy, TIA Cardio/Vascular: Yes: AFIB, CAD, HTN, Hyperlipdemia Pulmonary: Yes: Asthma, COPD Gastrointestinal: Yes: GERD Endocrine: Yes: Hypothyroidism - Past Surgical History Past Surgical History: Yes: Joint Replacement (left hip, TKR right), Mastectomy (Left) - Alcohol/Substance Use Hx Alcohol Use: No - Smoking History Smoking history: Never smoked Have you smoked in the past 12 months: No Aproximately how many cigarettes per day: 0 - Social History History of Recent Travel: No Home Medications - Allergies Allergies/Adverse Reactions: Allergies Allergy/AdvReac Type Severity Reaction Status Date / Time No Known Drug Allergies Allergy Verified 01/12/18 11:07 - Home Medications Home Medications: Ambulatory Orders Ferrous Fumarate [Iron] 325 mg PO DAILY 10/16/11 Levothyroxine [Synthroid -] 50 mcg PO DAILY 10/16/11 Metoprolol "Xl" (Sustain Act) [Toprol Xl] 50 mg PO DAILY 10/16/11 Rosuvastatin [Crestor -] 10 mg PO HS #0 01/06/14 Cyanocobalamin [Vitamin B12 -] 2,500 mcg PO DAILY 06/07/14 Losartan Potassium 50 mg PO DAILY 06/07/14 Pramipexole Di-HCl [Mirapex] 0.25 mg PO BID 06/07/14 Apixaban [Eliquis] 5 mg PO BID 11/18/17 Ascorbate Calcium [Vitamin C] 500 mg PO DAILY 11/18/17 Albuterol 2.5/Ipratropium 0.5 [Duoneb -] 1 amp NEB RTID #0 amp 11/21/17 Budesonide/Formeterol Fumarate [SYMBICORT 80/4.5mcg -] 2 puff IH BID inhaler Nitroglycerin [Nitrostat] 0.4 mg SL PRN PRN 02/05/18 Escitalopram Oxalate [Lexapro -] 20 mg PO DAILY tablet 02/19/18 Pregabalin [Lyrica -] 150 mg PO BID cap MDD 300mg 02/19/18 Calcium Carbonate/Vitamin D3 [Calcium 600+D Softgel] 1 each PO DAILY 11/02/19 Tramadol HCl/Acetaminophen [Tramadol-Acetaminophn 37.5-325] 1 each PO DAILY Review of Systems - Review of Systems Constitutional: reports: Weakness. denies: Chills, Fever Eyes: denies: Recent Change in Vision HENT: denies: Nasal Congestion, Throat Pain Neck: denies: Stiffness, Tenderness Cardiovascular: reports: Shortness of Breath. denies: Chest Pain, Edema, Palpitations Respiratory: reports: Cough, Wheezing. denies: Hemoptysis Gastrointestinal: denies: Abdominal Pain, Nausea, Vomiting Genitourinary: denies: Dysuria, Hematuria Neurological: denies: Dizziness, Headache Endocrine: denies: Unexplained Weight Loss Physical Exam Vital Sings: Vital Signs Temperature 98.2 F 11/04/19 10:00 Pulse Rate 67 11/04/19 10:00 Respiratory Rate 18 11/04/19 10:00 Blood Pressure 134/69 11/04/19 10:00 O2 Sat by Pulse Oximetry (%) 100 11/04/19 09:00 Constitutional: Yes: Calm Eyes: Yes: Conjunctiva Clear, EOM Intact HENT: Yes: Atraumatic, Normocephalic Neck: Yes: Supple, Trachea Midline Cardiovascular: Yes: Regular Rate and Rhythm Respiratory: Yes: Poor Air Entry ...Clubbing: No Gastrointestinal: Yes: Normal Bowel Sounds, Soft. No: Tenderness Edema: No Neurological: Yes: Alert, Oriented Labs: CBC, BMP 11/04/19 05:38 11/04/19 05:38 Imaging - Results Chest X-ray: Report Reviewed, Image Reviewed (poor inspiration) Problem List - Problems (1) Acute asthma exacerbation Code(s): J45.901 - UNSPECIFIED ASTHMA WITH (ACUTE) EXACERBATION Assessment/Plan Acute Asthma Exacerbation Atrial Fibrillation HTN Hyperlipidemia GERD Hypothyroidism - short course of medrol - inhaled bronchodilators - O2 to keep Spo2 >90% - outpt PFTs - DVT prophylaxis Thank you for this consult Lambert Tony MD
[2019-11-04] MEDS: methylPREDNISolone NA SUCC 40 MG/1 ML VIAL IVPUSH SCH (18:13)
[2019-11-04] MEDS: ROSUVASTATIN CA 10 MG TABLET (FP) PO SCH (22:06)
[2019-11-05] MEDS: methylPREDNISolone NA SUCC 40 MG/1 ML VIAL IVPUSH SCH ×3 (01:02→18:35)
[2019-11-05] MEDS: BUDESONIDE/FORMETEROL FUMARATE 80/4.5 mcg INHALER IH SCH ×3 (01:47→22:07)
[2019-11-05] MEDS: LEVOTHYROXINE NA 50 MCG TABLET (FP) PO SCH (06:03)
[2019-11-05] MEDS: ALBUTEROL SO4 2.5/IPRATROPIUM 0.5 INH SOL 3 ML VIAL.NEB. NEB SCH ×3 (07:47→20:08)
--- NOTE | 2019-11-05 09:20 | PN ---
Physical Exam: SUBJECTIVE: Patient seen and examined at the bedside. feels like her breathing is improving but still not at her baseline. episodes of shortness of breath at rest. OBJECTIVE: Patient is an 79 year old female with past medical history of anemia, breast CA s/p left lumpectomy, MVP, atrial fibrillation, HTN, HLD, GERD and hypothyroidism. Patient scheduled for right total shoulder replacement, after received nerve block, patient experienced episodes of shortness of breath and possible fainting episode. Patient denies any recent illness, denies fevers, chills, headache, dizziness, chest pain, SOB, abdominal pain, diarrhea, urinary symptoms. per surgery, can reconsider doing the right total shoulder replacement surgery when medically stable and cleared. right shoulder/arm immobility s/p nerve block? possible reaction to nerve block agent? surgery and Dr. Felton consulted for possible emg. physical therapy consulted. Vital Signs Period Temp Pulse Resp BP Sys/Bocanegra Pulse Ox Last 24 Hr 97.8 F-98.2 F 66-75 18-20 127-160/60-82 98 GENERAL: The patient is awake, alert, and fully oriented, mild conversational dyspnea HEAD: Normal with no signs of trauma. EYES: PERRL, extraocular movements intact, sclera anicteric, conjunctiva clear. No ptosis. ENT: Ears normal, nares patent, oropharynx clear without exudates, dry mucous membranes NECK: Trachea midline, full range of motion, supple. LUNGS: clear/diminished bilaterally, no wheezing HEART: nsr 89 on front desk monitor ABDOMEN: Soft, nontender, nondistended, normoactive bowel sounds, obese abd. EXTREMITIES:+1 bilateral trace edema lower ext. NEUROLOGICAL: Normal speech, gait not observed. PSYCH: Normal mood, normal affect. SKIN: Warm, dry, normal turgor, no rashes or lesions noted Active Medications Generic Name Dose Route Start Last Admin Trade Name Freq PRN Reason Stop Dose Admin Albuterol/Ipratropium 1 amp 11/03/19 14:00 11/05/19 07:47 Duoneb - NEB 1 amp RTID [facility] Administration Apixaban 5 mg 11/04/19 10:11/04/19 22:06 Eliquis - PO 5 mg BID [facility] Administration Budesonide/Formoterol Fumarate 2 puff 11/03/19 10:11/05/19 01:47 Symbicort 80/4.5mcg - IH Not Given BID [facility] Escitalopram Oxalate 20 mg 11/03/19 10:00 11/04/19 10:23 Lexapro - PO 20 mg DAILY [facility] Administration Ferrous Sulfate 325 mg 11/03/19 10:00 11/04/19 10:23 Feosol - PO 325 mg DAILY [facility] Administration Levothyroxine Sodium 50 mcg 11/03/19 10:00 11/05/19 06:03 Synthroid - PO 50 mcg ACBK [facility] Administration Losartan Potassium 50 mg 11/03/19 10:00 11/04/19 10:23 Cozaar - PO 50 mg DAILY [facility] Administration Methylprednisolone Sodium Succinate 40 mg 11/04/19 18:00 11/05/19 01:02 Solu-Medrol - IVPUSH 40 mg Q8H-IV [facility] Administration Metoprolol Succinate 50 mg 11/03/19 10:00 11/04/19 10:22 Toprol Xl - PO 50 mg DAILY [facility] Administration Nitroglycerin 0.4 mg 11/03/19 08:07 Nitrostat - SL PRN PRN pain Pramipexole Dihydrochloride 0.25 mg 11/03/19 10:00 11/04/19 22:07 Mirapex - PO 0.25 mg BID [facility] Administration Pregabalin 150 mg 11/03/19 10:00 11/04/19 22:06 Lyrica - PO 150 mg BID [facility] Administration Rosuvastatin Calcium 10 mg 11/03/19 22:00 11/04/19 22:06 Crestor - PO 10 mg HS [facility] Administration ASSESSMENT/PLAN: Problem List - Problems (1) Shoulder joint replacement status Assessment/Plan: Patient was scheduled for right total shoulder replacement on 11/03/[address] Rucker. Patient given nerve block, then developed acute shortness of breath and wheezing. Surgery cancelled. Right upper arm still numb from block but improving, able to move her hand/fingers. on Solumedrol Surgery follow up. may need EMG. physical therapy ordered. Code(s): Z96.619 - PRESENCE OF UNSPECIFIED ARTIFICIAL SHOULDER JOINT (2) Acute asthma exacerbation Assessment/Plan: on short course medrol on supplemental oxygen with weaning trails. patient not home oxygen dependent. will attempt to wean off oxygen today will need pre and post prior to d/c Code(s): J45.901 - UNSPECIFIED ASTHMA WITH (ACUTE) EXACERBATION (3) Shoulder impingement Assessment/Plan: pain managed physical therapy Code(s): M75.40 - IMPINGEMENT SYNDROME OF UNSPECIFIED SHOULDER Qualifiers: Laterality: right Qualified Code(s): M75.41 - Impingement syndrome of right shoulder (4) DVT prophylaxis Assessment/Plan: on eliquis Code(s): Z29.9 - ENCOUNTER FOR PROPHYLACTIC MEASURES, UNSPECIFIED (5) Hypertension Assessment/Plan: controlled on toprol, cozaar Code(s): I10 - ESSENTIAL (PRIMARY) HYPERTENSION (6) Atrial fibrillation Assessment/Plan: on eliquis, toprol Code(s): I48.91 - UNSPECIFIED ATRIAL FIBRILLATION (7) Prophylactic measure Assessment/Plan: fen tolerating PO monitor electrolytes low salt diet full code Code(s): Z29.9 - ENCOUNTER FOR PROPHYLACTIC MEASURES, UNSPECIFIED Visit type - Emergency Visit Emergency Visit: Yes ED Registration Date: 11/03/19 Care time: The patient presented to the Emergency Department on the above date and was hospitalized for further evaluation of their emergent condition. - New Patient This patient is new to me today: Yes Date on this admission: 11/05/19 - Critical Care Critical Care patient: No - Discharge Referral Referred to [facility] Med P.C.: No
[2019-11-05] MEDS: PREGABALIN 75 MG CAPSULE PO SCH ×2 (10:57→22:07)
[2019-11-05] MEDS: ESCITALOPRAM OXALATE 10 MG TABLET PO SCH (10:58)
[2019-11-05] MEDS: PRAMIPEXOLE DIHYDROCHLORIDE 0.25 MG TABLET PO SCH ×2 (10:58→22:07)
[2019-11-05] MEDS: APIXABAN 5 MG TABLET PO SCH ×2 (10:58→22:07)
[2019-11-05] MEDS: FERROUS SO4 325 MG TABLET (FP) PO SCH (10:58)
[2019-11-05] MEDS: LOSARTAN POTASSIUM 50 MG TABLET (FP) PO SCH (11:02)
--- NOTE | 2019-11-05 11:23 | PN ---
Progress Note, Physician History of Present Illness: PULMONARY ALERT,STILL C/O SOB ALTHOUGH BETTER THAN YESTERDAY - Current Medication List Current Medications: Active Medications Albuterol/Ipratropium (Duoneb -) 1 amp NEB RTID [facility] Last Admin: 11/05/19 07:47 Dose: 1 amp Apixaban (Eliquis -) 5 mg PO BID [facility] Last Admin: 11/05/19 10:58 Dose: 5 mg Budesonide/Formoterol Fumarate (Symbicort 80/4.5mcg -) 2 puff IH BID [facility] Last Admin: 11/05/19 01:47 Dose: Not Given Escitalopram Oxalate (Lexapro -) 20 mg PO DAILY [facility] Last Admin: 11/05/19 10:58 Dose: 20 mg Ferrous Sulfate (Feosol -) 325 mg PO DAILY [facility] Last Admin: 11/05/19 10:58 Dose: 325 mg Levothyroxine Sodium (Synthroid -) 50 mcg PO ACBK [facility] Last Admin: 11/05/19 06:03 Dose: 50 mcg Losartan Potassium (Cozaar -) 50 mg PO DAILY [facility] Last Admin: 11/05/19 11:02 Dose: 50 mg Methylprednisolone Sodium Succinate (Solu-Medrol -) 40 mg IVPUSH Q8H-IV [facility] Last Admin: 11/05/19 10:58 Dose: 40 mg Metoprolol Succinate (Toprol Xl -) 50 mg PO DAILY [facility] Last Admin: 11/05/19 10:57 Dose: 50 mg Nitroglycerin (Nitrostat -) 0.4 mg SL PRN PRN PRN Reason: pain Pramipexole Dihydrochloride (Mirapex -) 0.25 mg PO BID [facility] Last Admin: 11/05/19 10:58 Dose: 0.25 mg Pregabalin (Lyrica -) 150 mg PO BID [facility] Last Admin: 11/05/19 10:57 Dose: 150 mg Rosuvastatin Calcium (Crestor -) 10 mg PO HS [facility] Last Admin: 11/04/19 22:06 Dose: 10 mg - Objective Vital Signs: Vital Signs Temperature 97.8 F 11/05/19 06:00 Pulse Rate 69 11/05/19 06:00 Respiratory Rate 18 11/05/19 06:00 Blood Pressure 141/80 11/05/19 06:00 O2 Sat by Pulse Oximetry (%) 98 11/04/19 21:00 Constitutional: Yes: Well Nourished, Calm Eyes: Yes: WNL HENT: Yes: WNL Neck: Yes: WNL Cardiovascular: Yes: Pulse Irregular, S1, S2 Respiratory: Yes: Wheezes (FEW SCATTERED WHEEZES) Gastrointestinal: Yes: Normal Bowel Sounds, Soft Extremities: Yes: WNL Edema: No Labs: CBC, BMP 11/04/19 05:38 11/04/19 05:38 Problem List - Problems (1) GERD (gastroesophageal reflux disease) Code(s): K21.9 - GASTRO-ESOPHAGEAL REFLUX DISEASE WITHOUT ESOPHAGITIS (2) HLD (hyperlipidemia) Code(s): E78.5 - HYPERLIPIDEMIA, UNSPECIFIED (3) HTN (hypertension) Code(s): I10 - ESSENTIAL (PRIMARY) HYPERTENSION Qualifiers: Hypertension type: essential hypertension Qualified Code(s): I10 - Essential (primary) hypertension Assessment/Plan Problem List - Problems (1) Acute asthma exacerbation Code(s): J45.901 - UNSPECIFIED ASTHMA WITH (ACUTE) EXACERBATION Assessment/Plan Acute Asthma Exacerbation improving Atrial Fibrillation HTN Hyperlipidemia GERD Hypothyroidism - medrol - inhaled bronchodilators - O2 to keep Spo2 >90% - outpt PFTs - DVT prophylaxis DR SAWYER
[2019-11-05] MEDS ORDERED: PT OWN MED DRAWER 7, Y5N ONE ×2 (13:06→21:52)
--- NOTE | 2019-11-05 14:01 | PN ---
Progress Note (short form) - Note Progress Note: Pt. had a right interscalene block with exparel. She may have right upper extremity weakness and numbness for 2-4 days.
--- NOTE | 2019-11-05 14:26 | CONS ---
DATE OF CONSULTATION: 11/05/2019 HISTORY OF PRESENT ILLNESS: Patient is an 79-year-old woman with past medical history of right total knee replacement, left total hip replacement, and a left patellar resection, as well as underlying right shoulder osteoarthritis and coronary artery disease, who was admitted after aborted right reverse total shoulder arthroplasty. Patient was originally going to be admitted for surgery electively on her right shoulder. She was given a right interscalene nerve block of the brachial plexus and apparently developed wheezing and shortness of breath. Her surgery was aborted and she has been undergoing pulmonary workup. She underwent a chest x- ray on November 04, which did not show any acute process. Patient's blood work on November 03: WBC 6.2, hemoglobin 12.0 and platelet count 152. Repeat on November 04 showed WBC 6.0, hemoglobin 11.8, platelet count 148. Chemistry showed sodium 139, potassium 4.3, chloride 104, CO2 31, BUN 11, creatinine 0.7, albumin slightly low at 3.2, normal TSH 1.32. Repeat blood work November 04 was stable. Patient notes that her breathing had somewhat improved, but she continues to have difficulty at times, but also notes that she is unable to raise up her shoulder or bend at her right elbow and has persistent numbness in the right upper extremity that was not there prior to the nerve block. She does have a sling, which she uses. Premorbidly she ambulated with a quad cane, but does have a Rollator at the bedside and again is now seen in rehabilitation evaluation. REVIEW OF PAST MEDICAL HISTORY AND SURGICAL HISTORY: Also significant for peripheral neuropathy, TIA, atrial fibrillation, coronary artery disease, anemia, hypothyroidism, gastroesophageal reflux disease, diffuse osteoarthritis and multiple joint replacements as noted above including right total knee replacement, which was revised 3 times, left total hip replacement and she also had surgery for breast cancer, status post left lumpectomy and patellar resection in the left knee, as well as other arthroscopic procedures. SOCIAL HISTORY: Lives with her son in a private house 3 steps to get in. Again premorbidly used the quad cane. Current function: She requires assistance to get out of bed. REVIEW OF SYSTEMS: No lightheadedness, dizziness. No blurry vision, double vision. No nausea, vomiting, difficulty swallowing or difficulty chewing. Again she has difficulty raising up the right shoulder, which she could do prior to the block. Numbness in the right upper extremity from her shoulder down into the forearm into the thumb. No numbness, tingling in the left upper extremity. She does get short of breath with any exertion and some shortness of breath at rest. No abdominal discomfort, no bowel or bladder complaints. She had some persistent pain in both of her lower extremities in the knees. PHYSICAL EXAMINATION: General: On examination overweight woman sitting on the bed in the chair. She was awake and cooperative. HEENT: Normocephalic and atraumatic. Extraocular muscles appeared intact. Poor dentition. Neck: Supple. Extremities: Without any pitting edema or calf tenderness. Neuromuscular: She was awake, alert, oriented x3. Cranial nerves II through XII intact grossly intact. She has weakness in the right proximal upper extremity including the shoulder girdle and elbow flexors. She has better triceps strength. 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 Diminished sensation in the right upper extremity, especially in C5-C6 dermatomes. Otherwise intact in the left upper extremity to pin prick and lower extremities. Fairly good dorsiflexion and plantar flexion to antigravity, hip, girdle and knee extensor strength. Scars well-healed on both knees from prior surgeries. OVERALL IMPRESSION: 1. Deficits mobility, activities of daily living multifactorial. 2. Right upper extremity weakness and numbness, which was not present prior to right interscalene nerve block, rule out upper trunk plexopathy. 3. Underlying right shoulder osteoarthritis. 4. Acute asthma or chronic obstructive pulmonary disease exacerbation. 5. History of diffuse osteoarthritis, status post right total knee replacements , as well as left total hip replacement. 6. History of left patellar resection and multiple arthroscopic procedures. 7. History of breast cancer, status post left lumpectomy. 8. Coronary artery disease, atrial fibrillation, hypertension. 9. Possible history of peripheral neuropathy. 10. Hypothyroidism. PLAN/SUGGESTION: 1. Would discuss with the nurse getting Anesthesia to follow up with the patient regarding the persistent weakness and numbness involving the right upper extremity. 2. Consider imaging of the right brachioplexus. 3. Sling to the right upper extremity for comfort. 4. Physical therapy to mobilize the patient at the bedside. 5. DVT prophylaxis. 6. Skin precaution. 7. May need EMG studies in one to 2 weeks if weakness and numbness persist. 8. Discussed with the family present at the bedside, as well as patient can follow up as an outpatient. Thank you for this referral. ALIN CABEZAS M.D. SAVANNA/[id number] MTDD
[2019-11-05] MEDS: ROSUVASTATIN CA 10 MG TABLET (FP) PO SCH (22:07)
[2019-11-06] MEDS: methylPREDNISolone NA SUCC 40 MG/1 ML VIAL IVPUSH SCH ×2 (04:35→18:58)
[2019-11-06] MEDS: LEVOTHYROXINE NA 50 MCG TABLET (FP) PO SCH (06:04)
[2019-11-06 06:55] LABS: HEMATOCRIT 36.8 % (32.4-45.2); HEMOGLOBIN 12.4 GM/dL (10.7-15.3); LYMPH % 12.8 % (8-40); MCH 32.1 pg (25.7-33.7); MCHC 33.6 g/dl (32.0-36.0); MEAN CELL VOLUME 95.4 fl (80-96); MEAN PLT VOLUME 8.5 fl (7.5-11.1); MONO % 6.5 % (3.8-10.2); NEUT % 80.7 % (42.8-82.8); PLATELET COUNT 178 K/MM3 (134-434); RBC 3.86 M/mm3 (3.60-5.2); RDW 14.7 % (11.6-15.6); WHITE BLOOD COUNT 9.4 K/mm3 (4.0-10.0)
[2019-11-06 07:24] LABS: ALBUMIN 3.3 g/dl (3.4-5.0); BILIRUBIN,TOTAL 0.3 mg/dL (0.2-1); BLOOD UREA NITROGEN 21.7 mg/dL (7-18); CALCIUM 8.3 mg/dL (8.5-10.1); CREATININE 0.7 mg/dL (0.55-1.3); POTASSIUM 4.3 mmol/L (3.5-5.1); TOT PROT 6.6 g/dl (6.4-8.2)
[2019-11-06] MEDS: ALBUTEROL SO4 2.5/IPRATROPIUM 0.5 INH SOL 3 ML VIAL.NEB. NEB SCH ×3 (07:43→20:15)
[2019-11-06] MEDS ORDERED: PT OWN MED DRAWER 7, Y5N ONE (09:16)
[2019-11-06] MEDS: APIXABAN 5 MG TABLET PO SCH ×2 (09:54→21:49)
[2019-11-06] MEDS: FERROUS SO4 325 MG TABLET (FP) PO SCH (09:54)
[2019-11-06] MEDS: LOSARTAN POTASSIUM 50 MG TABLET (FP) PO SCH (09:54)
[2019-11-06] MEDS: ESCITALOPRAM OXALATE 10 MG TABLET PO SCH (09:55)
[2019-11-06] MEDS: PREGABALIN 75 MG CAPSULE PO SCH ×2 (09:55→21:49)
[2019-11-06] MEDS: PANTOPRAZOLE 40 MG TABLET PO SCH (09:56)
[2019-11-06] MEDS: PRAMIPEXOLE DIHYDROCHLORIDE 0.25 MG TABLET PO SCH ×2 (09:56→21:49)
[2019-11-06] MEDS: BUDESONIDE/FORMETEROL FUMARATE 80/4.5 mcg INHALER IH SCH ×2 (09:57→21:50)
[2019-11-06] MEDS ORDERED: predniSONE 20 MG TABLET (UD) PO ONE (10:46)
[2019-11-06] MEDS ORDERED: ACETAMINOPHEN 325 MG TABLET (FP) PO PRN (10:48)
[2019-11-06] MEDS: guaiFENesin 200 MG/10 ML 10 ML UNIT-DOSE CUPS PO PRN ×2 (10:59→18:32)
--- NOTE | 2019-11-06 14:22 | PN ---
Teaching Attending Note Name of Resident: Enedelia De La Cruz ATTENDING PHYSICIAN STATEMENT I saw and evaluated the patient. I reviewed the resident's note and discussed the case with the resident. I agree with the resident's findings and plan as documented. SUBJECTIVE: Complains of pain R shoulder with weakness and numbness RUE. OBJECTIVE: Afebrile, Hemodynamicaly stable. AAO x 3. Last Vital Signs Temp Pulse Resp BP Pulse Ox 98.2 F 95 H 20 138/74 95 11/06/19 09:48 11/06/19 09:48 11/06/19 09:48 11/06/19 09:48 11/05/19 21:00 HEENT - Atraumatic, Normocephalic. Heart - S1, S2, soft SM Lungs - clear to auscultation Abdomen - Soft, non-tender. Bowel Sounds normal. Extremities - RUE in sling, power 4/5. No calf tenderness. Laboratory Results - last 24 hr 11/06/19 11/06/19 06:22 06:22 WBC 9.4 RBC 3.86 Hgb 12.4 Hct 36.8 MCV 95.4 MCH 32.1 MCHC 33.6 RDW 14.7 Plt Count 178 D MPV 8.5 Absolute Neuts (auto) 7.6 Neutrophils % 80.7 D Lymphocytes % 12.8 D Monocytes % 6.5 Eosinophils % 0.0 D Basophils % 0.0 Nucleated RBC % 0 Sodium 139 Potassium 4.3 Chloride 105 Carbon Dioxide 30 Anion Gap 3 L BUN 21.7 H Creatinine 0.7 Est GFR (CKD-EPI)AfAm 94.84 Est GFR (CKD-EPI)NonAf 81.83 Random Glucose 106 Calcium 8.3 L Magnesium 2.0 Total Bilirubin 0.3 AST 14 L ALT 30 Alkaline Phosphatase 45 Total Protein 6.6 Albumin 3.3 L Current Medications Generic Name Dose Route Start Last Admin Trade Name Freq PRN Reason Stop Dose Admin Acetaminophen 650 mg 11/06/19 10:48 11/06/19 10:59 Tylenol - PO 650 mg Q6H PRN Administration Fever Albuterol/Ipratropium 1 amp 11/03/19 14:00 11/06/19 14:14 Duoneb - NEB 1 amp RTID NICOLE Administration Apixaban 5 mg 11/04/19 10:00 11/06/19 09:54 Eliquis - PO 5 mg BID NICOLE Administration Budesonide/Formoterol Fumarate 2 puff 11/03/19 10:00 11/06/19 09:57 Symbicort 80/4.5mcg - IH 2 puff BID NICOLE Administration Escitalopram Oxalate 20 mg 11/03/19 10:00 11/06/19 09:55 Lexapro - PO 20 mg DAILY NICOLE Administration Ferrous Sulfate 325 mg 11/03/19 10:00 11/06/19 09:54 Feosol - PO 325 mg DAILY NICOLE Administration Guaifenesin 10 ml 11/06/19 10:48 11/06/19 10:59 Robitussin - PO 10 ml Q6H PRN Administration COUGH Levothyroxine Sodium 50 mcg 11/03/19 10:00 11/06/19 06:04 Synthroid - PO 50 mcg ACBK NICOLE Administration Losartan Potassium 50 mg 11/03/19 10:00 11/06/19 09:54 Cozaar - PO 50 mg DAILY NICOLE Administration Metoprolol Succinate 50 mg 11/03/19 10:00 11/06/19 10:00 Toprol Xl - PO 50 mg DAILY [facility] Administration Nitroglycerin 0.4 mg 11/03/19 08:07 Nitrostat - SL PRN PRN pain Pantoprazole Sodium 40 mg 11/06/19 10:00 11/06/19 09:56 Protonix - PO 40 mg DAILY N[facility] Administration Pramipexole Dihydrochloride 0.25 mg 11/03/19 10:00 11/06/19 09:56 Mirapex - PO 0.25 mg BID NICOLE Administration Prednisone 40 mg 11/07/19 10:00 Deltasone - PO DAILY NICOLE Pregabalin 150 mg 11/03/19 10:00 11/06/19 09:55 Lyrica - PO 150 mg BID NICOLE Administration Rosuvastatin Calcium 10 mg 11/03/19 22:00 11/05/19 22:07 Crestor - PO 10 mg HS NICOLE Administration Home Medications Medication Instructions Recorded Ferrous Fumarate [Iron] 325 mg PO DAILY 10/16/11 Levothyroxine [Synthroid -] 50 mcg PO DAILY 10/16/11 Metoprolol "Xl" (Sustain Act) 50 mg PO DAILY 10/16/11 [Toprol Xl] Rosuvastatin [Crestor -] 10 mg PO HS #0 01/06/14 Cyanocobalamin [Vitamin B12 -] 2,500 mcg PO DAILY 06/07/14 Losartan Potassium 50 mg PO DAILY 06/07/14 Pramipexole Di-HCl [Mirapex] 0.25 mg PO BID 06/07/14 Apixaban [Eliquis] 5 mg PO BID 11/18/17 Ascorbate Calcium [Vitamin C] 500 mg PO DAILY 11/18/17 Albuterol 2.5/Ipratropium 0.5 1 amp NEB RTID #0 amp 11/21/17 [Duoneb -] Budesonide/Formeterol Fumarate 2 puff IH BID inhaler 11/21/17 [SYMBICORT 80/4.5mcg -] Nitroglycerin [Nitrostat] 0.4 mg SL PRN PRN 02/05/18 Escitalopram Oxalate [Lexapro -] 20 mg PO DAILY tablet 02/19/18 Pregabalin [Lyrica -] 150 mg PO BID cap MDD 300mg 02/19/18 Calcium Carbonate/Vitamin D3 1 each PO DAILY 11/02/19 [Calcium 600+D Softgel] Tramadol HCl/Acetaminophen 1 each PO DAILY 11/02/19 [Tramadol-Acetaminophn 37.5-325] ASSESSMENT AND PLAN: 79 year old female with past medical history of Breast CA s/p left lumpectomy, MVP, Atrial fibrillation, HTN, HLD, GERD, depression/anxiety and hypothyroidism , admitted with SOB, which she developed after receiving nerve block for elective R total shoulder replacement surgery, resulting in treatment of acute asthma exacerbation. 1. Acute Asthma Exacerbation - resolving. Wheezing resolved - transitioned from IV to oral Prednisone. Medically Stable for discharge but patient does not want to leave as she says that Dr. Henry told her that she can stay until Friday. She was explained that there is no further need for in-patient stay due to her improved and recovered respiratory status. Continue Symbicort, DuoNeb. 2. RUE weakness/numbness s/p right interscalene block with exparel As per Anesthesia, can expect right upper extremity weakness and numbness for 2- 4 days. Rght total shoulder replacement surgery cancelled - to be rescheduled at a later date once discharged. 3. Atrial Fibrillation Continue BB, Eliquis 4. HTN - continue Toprol and Cozaar 5. Hypothyroidism - continue Levothyroxine. 6. Depression/Anxiety - continue Lexapro, 7. Hx of BRIGITTE - on Ferrous Sulfate. DVT Px - on Eliquis.
--- NOTE | 2019-11-06 15:13 | PN ---
Progress Note (short form) - Note Progress Note: Feels better. Sore throat and cough persist. No CP. No acute events overnight. Intake & Output 11/03/19 11/04/19 11/05/19 11/06/19 23:59 23:59 23:59 23:59 Intake Total 100 Output Total 0 Balance 100 Last Vital Signs Temp Pulse Resp BP Pulse Ox 98.6 F 69 20 132/70 95 11/06/19 14:00 11/06/19 14:00 11/06/19 09:48 11/06/19 14:00 11/05/19 21:00 Active Medications Acetaminophen (Tylenol -) 650 mg PO Q6H PRN PRN Reason: Fever Last Admin: 11/06/19 10:59 Dose: 650 mg Albuterol/Ipratropium (Duoneb -) 1 amp NEB RTID [facility] Last Admin: 11/06/19 14:14 Dose: 1 amp Apixaban (Eliquis -) 5 mg PO BID [facility] Last Admin: 11/06/19 09:54 Dose: 5 mg Budesonide/Formoterol Fumarate (Symbicort 80/4.5mcg -) 2 puff IH BID [facility] Last Admin: 11/06/19 09:57 Dose: 2 puff Escitalopram Oxalate (Lexapro -) 20 mg PO DAILY [facility] Last Admin: 11/06/19 09:55 Dose: 20 mg Ferrous Sulfate (Feosol -) 325 mg PO DAILY [facility] Last Admin: 11/06/19 09:54 Dose: 325 mg Guaifenesin (Robitussin -) 10 ml PO Q6H PRN PRN Reason: COUGH Last Admin: 11/06/19 10:59 Dose: 10 ml Levothyroxine Sodium (Synthroid -) 50 mcg PO ACBK [facility] Last Admin: 11/06/19 06:04 Dose: 50 mcg Losartan Potassium (Cozaar -) 50 mg PO DAILY [facility] Last Admin: 11/06/19 09:54 Dose: 50 mg Metoprolol Succinate (Toprol Xl -) 50 mg PO DAILY [facility] Last Admin: 11/06/19 10:00 Dose: 50 mg Nitroglycerin (Nitrostat -) 0.4 mg SL PRN PRN PRN Reason: pain Pantoprazole Sodium (Protonix -) 40 mg PO DAILY [facility] Last Admin: 11/06/19 09:56 Dose: 40 mg Pramipexole Dihydrochloride (Mirapex -) 0.25 mg PO BID [facility] Last Admin: 11/06/19 09:56 Dose: 0.25 mg Prednisone (Deltasone -) 40 mg PO DAILY [facility] Pregabalin (Lyrica -) 150 mg PO BID [facility] Last Admin: 11/06/19 09:55 Dose: 150 mg Rosuvastatin Calcium (Crestor -) 10 mg PO HS [facility] Last Admin: 11/05/19 22:07 Dose: 10 mg Constitutional: Yes: NAD Eyes: Yes: WNL HENT: Yes: WNL Neck: Yes: WNL Cardiovascular: Yes: Pulse Irregular, S1, S2 Respiratory: Yes: Scattered Rhonchi and Wheezes Gastrointestinal: Yes: Normal Bowel Sounds, Soft Extremities: Yes: WNL Edema: No Labs: Laboratory Results - last 24 hr 11/06/19 11/06/19 06:22 06:22 WBC 9.4 RBC 3.86 Hgb 12.4 Hct 36.8 MCV 95.4 MCH 32.1 MCHC 33.6 RDW 14.7 Plt Count 178 D MPV 8.5 Absolute Neuts (auto) 7.6 Neutrophils % 80.7 D Lymphocytes % 12.8 D Monocytes % 6.5 Eosinophils % 0.0 D Basophils % 0.0 Nucleated RBC % 0 Sodium 139 Potassium 4.3 Chloride 105 Carbon Dioxide 30 Anion Gap 3 L BUN 21.7 H Creatinine 0.7 Est GFR (CKD-EPI)AfAm 94.84 Est GFR (CKD-EPI)NonAf 81.83 Random Glucose 106 Calcium 8.3 L Magnesium 2.0 Total Bilirubin 0.3 AST 14 L ALT 30 Alkaline Phosphatase 45 Total Protein 6.6 Albumin 3.3 L Problem List - Problems (1) GERD (gastroesophageal reflux disease) Code(s): K21.9 - GASTRO-ESOPHAGEAL REFLUX DISEASE WITHOUT ESOPHAGITIS (2) HLD (hyperlipidemia) Code(s): E78.5 - HYPERLIPIDEMIA, UNSPECIFIED (3) HTN (hypertension) Code(s): I10 - ESSENTIAL (PRIMARY) HYPERTENSION Qualifiers: Hypertension type: essential hypertension Qualified Code(s): I10 - Essential (primary) hypertension Assessment/Plan Acute Asthma Exacerbation Atrial Fibrillation HTN Hyperlipidemia GERD Hypothyroidism - Cepacol - medrol - inhaled bronchodilators - O2 to keep Spo2 >90% - outpt PFTs - DVT prophylaxis Dr Mitchell
--- NOTE | 2019-11-06 17:37 | PN ---
Physical Exam: SUBJECTIVE: Patient seen and examined at bedside. No acute events overnight. Pt still complains of R shoulder numbness and weakness. OBJECTIVE: Vital Signs Temperature 98.6 F 11/06/19 14:00 Pulse Rate 91 H 11/06/19 15:53 Respiratory Rate 20 11/06/19 09:48 Blood Pressure 132/70 11/06/19 14:00 O2 Sat by Pulse Oximetry (%) 96 11/06/19 15:53 GENERAL: AAOx3. NAD. Resting comfortably in bed. HEENT: AT/NC. EOMI. MMM. NECK: Trachea midline, full range of motion, supple. LUNGS: clear/diminished bilaterally, no wheezing HEART: RRR. Normal S1, S2. ABDOMEN: Soft, nontender, nondistended, normoactive bowel sounds, obese abd. EXTREMITIES :+1 bilateral trace edema lower ext. RUE sling in place. Decreased sensation in RUE. Decrease ROM in RUE. NEUROLOGICAL: Normal speech, gait not observed. PSYCH: Normal mood, normal affect. SKIN: Warm, dry, normal turgor, no rashes or lesions noted CBC, BMP 11/06/19 06:22 11/06/19 06:22 Active Medications Acetaminophen (Tylenol -) 650 mg PO Q6H PRN PRN Reason: Fever Last Admin: 11/06/19 10:59 Dose: 650 mg Albuterol/Ipratropium (Duoneb -) 1 amp NEB RTID [facility] Last Admin: 11/06/19 14:14 Dose: 1 amp Apixaban (Eliquis -) 5 mg PO BID [facility] Last Admin: 11/06/19 09:54 Dose: 5 mg Benzocaine/Menthol (Cepacol Lozenge -) 1 each MM PRN PRN PRN Reason: SORE THROAT Budesonide/Formoterol Fumarate (Symbicort 80/4.5mcg -) 2 puff IH BID [facility] Last Admin: 11/06/19 09:57 Dose: 2 puff Escitalopram Oxalate (Lexapro -) 20 mg PO DAILY [facility] Last Admin: 11/06/19 09:55 Dose: 20 mg Ferrous Sulfate (Feosol -) 325 mg PO DAILY [facility] Last Admin: 11/06/19 09:54 Dose: 325 mg Guaifenesin (Robitussin -) 10 ml PO Q6H PRN PRN Reason: COUGH Last Admin: 11/06/19 10:59 Dose: 10 ml Levothyroxine Sodium (Synthroid -) 50 mcg PO ACBK [facility] Last Admin: 11/06/19 06:04 Dose: 50 mcg Losartan Potassium (Cozaar -) 50 mg PO DAILY [facility] Last Admin: 11/06/19 09:54 Dose: 50 mg Metoprolol Succinate (Toprol Xl -) 50 mg PO DAILY [facility] Last Admin: 11/06/19 10:00 Dose: 50 mg Nitroglycerin (Nitrostat -) 0.4 mg SL PRN PRN PRN Reason: pain Pantoprazole Sodium (Protonix -) 40 mg PO DAILY [facility] Last Admin: 11/06/19 09:56 Dose: 40 mg Pramipexole Dihydrochloride (Mirapex -) 0.25 mg PO BID [facility] Last Admin: 11/06/19 09:56 Dose: 0.25 mg Prednisone (Deltasone -) 40 mg PO DAILY [facility] Pregabalin (Lyrica -) 150 mg PO BID [facility] Last Admin: 11/06/19 09:55 Dose: 150 mg Rosuvastatin Calcium (Crestor -) 10 mg PO HS [facility] Last Admin: 11/05/19 22:07 Dose: 10 mg ASSESSMENT/PLAN: 79F w/ pmhx of breast ca s/p left lumpectomy, MVP, Atrial fibrillation, HTN, HLD , GERD, depression/anxiety and hypothyroidism, admitted with SOB, s/p nerve block for elective R total shoulder replacement surgery, now being treated for acute asthma exacerbation. #Acute Asthma Exacerbation; Stable. No signs of wheezing. -Previously on IV Solumedrol, now on PO Prednisone. Can cont with taper. -Cepachol -Pulm consulted; outpatient PFTs Cont home meds: Duonebs, Spiriva #RUE Weakness/Numbness; s/p R interscalene nerve block -Pt was scheduled for R total shoulder replacement. Per ortho, will need to re- schedule procedure on another date after discharge. #Afib; Stable. Cont home meds: Eliquis 5 BID, Toprol XL 50 #HTN/HLD; Stable. Cont home meds: Losartan 50, Toprol XL 50, Crestor 10 #GERD; No acute issues. Cont home med: Protonix 40 #Hypothyroidism; Cont home med: Synthroid 50 mcg #Depression/Anxiety; No acute issues. Cont home med: Lexapro 20 #Hx of BRIGITTE; Cont home med: Ferrous Sulfate 325 #Prophylaxis DVT: Cont home Eliquis GI: Cont home Protonix #FEN -No IVf -recheck lytes in AM -Sodium-controlled diet Dispo -cont to monitor on med-surg -Pt is medically stable for discharge Visit type - Emergency Visit Emergency Visit: Yes ED Registration Date: 11/03/19 Care time: The patient presented to the Emergency Department on the above date and was hospitalized for further evaluation of their emergent condition. - New Patient This patient is new to me today: Yes Date on this admission: 11/06/19 - Critical Care Critical Care patient: No ATTENDING PHYSICIAN STATEMENT I saw and evaluated the patient. I reviewed the resident's note and discussed the case with the resident. I agree with the resident's findings and plan as documented. SUBJECTIVE: OBJECTIVE: ASSESSMENT AND PLAN:
[2019-11-06] MEDS: BENZOCAINE/MENTH/CETYLPYRD CL 1 EACH LOZENGE MM PRN (21:49)
[2019-11-06] MEDS: ROSUVASTATIN CA 10 MG TABLET (FP) PO SCH (21:49)
[2019-11-07] MEDS: guaiFENesin 200 MG/10 ML 10 ML UNIT-DOSE CUPS PO PRN ×3 (02:25→21:50)
[2019-11-07] MEDS: LEVOTHYROXINE NA 50 MCG TABLET (FP) PO SCH (06:04)
[2019-11-07] MEDS: BENZOCAINE/MENTH/CETYLPYRD CL 1 EACH LOZENGE MM PRN ×4 (06:07→21:46)
[2019-11-07] MEDS: ALBUTEROL SO4 2.5/IPRATROPIUM 0.5 INH SOL 3 ML VIAL.NEB. NEB SCH ×3 (07:37→20:27)
[2019-11-07] MEDS: APIXABAN 5 MG TABLET PO SCH ×2 (10:21→21:45)
[2019-11-07] MEDS: predniSONE 20 MG TABLET (UD) PO SCH (10:21)
[2019-11-07] MEDS: LOSARTAN POTASSIUM 50 MG TABLET (FP) PO SCH (10:21)
[2019-11-07] MEDS: ESCITALOPRAM OXALATE 10 MG TABLET PO SCH (10:22)
[2019-11-07] MEDS: PREGABALIN 75 MG CAPSULE PO SCH ×2 (10:22→21:45)
[2019-11-07] MEDS: FERROUS SO4 325 MG TABLET (FP) PO SCH (10:22)
[2019-11-07] MEDS: BUDESONIDE/FORMETEROL FUMARATE 80/4.5 mcg INHALER IH SCH ×2 (10:23→21:46)
[2019-11-07] MEDS: PANTOPRAZOLE 40 MG TABLET PO SCH (10:23)
[2019-11-07] MEDS: PRAMIPEXOLE DIHYDROCHLORIDE 0.25 MG TABLET PO SCH ×2 (10:38→21:45)
--- NOTE | 2019-11-07 12:39 | PN ---
Progress Note (short form) - Note Progress Note: SUBJECTIVE: Complains of ongoing pain R shoulder with weakness and numbness RUE. Also complains of cough. OBJECTIVE: Afebrile, Hemodynamicaly stable. AAO x 3. Last Vital Signs Temp Pulse Resp BP Pulse Ox 98.3 F 77 20 140/64 94 L 11/07/19 09:44 11/07/19 09:44 11/07/19 09:44 11/07/19 09:44 11/07/19 09:00 Heart - S1, S2, soft SM Lungs - clear to auscultation Abdomen - Soft, non-tender. Bowel Sounds normal. Extremities - RUE in sling, power 4/5. No calf tenderness. Current Medications Generic Name Dose Route Start Last Admin Trade Name Freq PRN Reason Stop Dose Admin Acetaminophen 650 mg 11/06/19 10:48 11/06/19 10:59 Tylenol - PO 650 mg Q6H PRN Administration Fever Albuterol/Ipratropium 1 amp 11/03/19 14:00 11/07/19 07:37 Duoneb - NEB 1 amp RTID NICOLE Administration Apixaban 5 mg 11/04/19 10:00 11/07/19 10:21 Eliquis - PO 5 mg BID NICOLE Administration Benzocaine/Menthol 1 each 11/06/19 15:13 11/07/19 06:07 Cepacol Lozenge - MM 1 each PRN PRN Administration SORE THROAT Budesonide/Formoterol Fumarate 2 puff 11/03/19 10:00 11/07/19 10:23 Symbicort 80/4.5mcg - IH 2 puff BID NICOLE Administration Escitalopram Oxalate 20 mg 11/03/19 10:00 11/07/19 10:22 Lexapro - PO 20 mg DAILY NICO[facility] Administration Ferrous Sulfate 325 mg 11/03/19 10:00 11/07/19 10:22 Feosol - PO 325 mg DAILY NICO[facility] Administration Guaifenesin 10 ml 11/06/19 10:48 11/07/19 02:25 Robitussin - PO 10 ml Q6H PRN Administration COUGH Levothyroxine Sodium 50 mcg 11/03/19 10:00 11/07/19 06:04 Synthroid - PO 50 mcg ACBK NICOLE Administration Losartan Potassium 50 mg 11/03/19 10:00 11/07/19 10:21 Cozaar - PO 50 mg DAILY [facility] Administration Metoprolol Succinate 50 mg 11/03/19 10:00 11/07/19 10:23 Toprol Xl - PO 50 mg DAILY [facility] Administration Nitroglycerin 0.4 mg 11/03/19 08:07 Nitrostat - SL PRN PRN pain Pantoprazole Sodium 40 mg 11/06/19 10:00 11/07/19 10:23 Protonix - PO 40 mg DAILY [facility] Administration Pramipexole Dihydrochloride 0.25 mg 11/03/19 10:00 11/07/19 10:38 Mirapex - PO 0.25 mg BID NICOLE Administration Prednisone 40 mg 11/07/19 10:00 11/07/19 10:21 Deltasone - PO 40 mg DAILY [facility] Administration Pregabalin 150 mg 11/03/19 10:00 11/07/19 10:22 Lyrica - PO 150 mg BID NICOLE Administration Rosuvastatin Calcium 10 mg 11/03/19 22:00 11/06/19 21:49 Crestor - PO 10 mg HS [facility] Administration Home Medications Medication Instructions Recorded Ferrous Fumarate [Iron] 325 mg PO DAILY 10/16/11 Levothyroxine [Synthroid -] 50 mcg PO DAILY 10/16/11 Metoprolol "Xl" (Sustain Act) 50 mg PO DAILY 10/16/11 [Toprol Xl] Rosuvastatin [Crestor -] 10 mg PO HS #0 01/06/14 Cyanocobalamin [Vitamin B12 -] 2,500 mcg PO DAILY 06/07/14 Losartan Potassium 50 mg PO DAILY 06/07/14 Pramipexole Di-HCl [Mirapex] 0.25 mg PO BID 06/07/14 Apixaban [Eliquis] 5 mg PO BID 11/18/17 Ascorbate Calcium [Vitamin C] 500 mg PO DAILY 11/18/17 Albuterol 2.5/Ipratropium 0.5 1 amp NEB RTID #0 amp 11/21/17 [Duoneb -] Budesonide/Formeterol Fumarate 2 puff IH BID inhaler 11/21/17 [SYMBICORT 80/4.5mcg -] Nitroglycerin [Nitrostat] 0.4 mg SL PRN PRN 02/05/18 Escitalopram Oxalate [Lexapro -] 20 mg PO DAILY tablet 02/19/18 Pregabalin [Lyrica -] 150 mg PO BID cap MDD 300mg 02/19/18 Calcium Carbonate/Vitamin D3 1 each PO DAILY 11/02/19 [Calcium 600+D Softgel] Tramadol HCl/Acetaminophen 1 each PO DAILY 11/02/19 [Tramadol-Acetaminophn 37.5-325] ASSESSMENT AND PLAN: 79 year old female with past medical history of Breast CA s/p left lumpectomy, MVP, Atrial fibrillation, HTN, HLD, GERD, depression/anxiety and hypothyroidism , admitted with SOB, which she developed after receiving nerve block for elective R total shoulder replacement surgery, resulting in treatment of acute asthma exacerbation. 1. Acute Asthma Exacerbation - resolving. Wheezing resolved - transitioned from IV to oral Prednisone. Ongoing cough - repeat CXR (PA/LAT) requested. Medically Stable for discharge if CXR is unremarkable, but patient does not want to leave as she says that Dr. Henry told her that she can stay until Friday. She was explained that there is no further need for in-patient stay due to her improved and recovered respiratory status. Continue Symbicort, DuoNeb. Pulm following. 2. RUE weakness/numbness s/p right interscalene block with exparel As per Anesthesia, can expect right upper extremity weakness and numbness for 2- 4 days. Right total shoulder replacement surgery cancelled - to be rescheduled at a later date once discharged. 3. Atrial Fibrillation Continue BB, Eliquis 4. HTN - continue Toprol and Cozaar 5. Hypothyroidism - continue Levothyroxine. 6. Depression/Anxiety - continue Lexapro. 7. Hx of BRIGITTE - on Ferrous Sulfate. DVT Px - on Eliquis. Visit type - Emergency Visit Emergency Visit: Yes ED Registration Date: 11/03/19 Care time: The patient presented to the Emergency Department on the above date and was hospitalized for further evaluation of their emergent condition. - New Patient This patient is new to me today: No - Critical Care Critical Care patient: No - Discharge Referral Referred to [facility] No
--- NOTE | 2019-11-07 14:34 | PN ---
Progress Note (short form) - Note Progress Note: Feels better. Sore throat and cough are better. No CP. No acute events overnight. CXR: improving but residual basilar atelectasis Last Vital Signs Temp Pulse Resp BP Pulse Ox 98.2 F 66 18 122/68 94 L 11/07/19 14:00 11/07/19 14:00 11/07/19 14:00 11/07/19 14:00 11/07/19 09:00 Active Medications Acetaminophen (Tylenol -) 650 mg PO Q6H PRN PRN Reason: Fever Last Admin: 11/06/19 10:59 Dose: 650 mg Albuterol/Ipratropium (Duoneb -) 1 amp NEB RTID [facility] Last Admin: 11/07/19 07:37 Dose: 1 amp Apixaban (Eliquis -) 5 mg PO BID [facility] Last Admin: 11/07/19 10:21 Dose: 5 mg Benzocaine/Menthol (Cepacol Lozenge -) 1 each MM PRN PRN PRN Reason: SORE THROAT Last Admin: 11/07/19 14:23 Dose: 1 each Budesonide/Formoterol Fumarate (Symbicort 80/4.5mcg -) 2 puff IH BID [facility] Last Admin: 11/07/19 10:23 Dose: 2 puff Escitalopram Oxalate (Lexapro -) 20 mg PO DAILY [facility] Last Admin: 11/07/19 10:22 Dose: 20 mg Ferrous Sulfate (Feosol -) 325 mg PO DAILY [facility] Last Admin: 11/07/19 10:22 Dose: 325 mg Guaifenesin (Robitussin -) 10 ml PO Q6H PRN PRN Reason: COUGH Last Admin: 11/07/19 14:16 Dose: 10 ml Levothyroxine Sodium (Synthroid -) 50 mcg PO ACBK [facility] Last Admin: 11/07/19 06:04 Dose: 50 mcg Losartan Potassium (Cozaar -) 50 mg PO DAILY [facility] Last Admin: 11/07/19 10:21 Dose: 50 mg Metoprolol Succinate (Toprol Xl -) 50 mg PO DAILY [facility] Last Admin: 11/07/19 10:23 Dose: 50 mg Nitroglycerin (Nitrostat -) 0.4 mg SL PRN PRN PRN Reason: pain Pantoprazole Sodium (Protonix -) 40 mg PO DAILY [facility] Last Admin: 11/07/19 10:23 Dose: 40 mg Pramipexole Dihydrochloride (Mirapex -) 0.25 mg PO BID [facility] Last Admin: 11/07/19 10:38 Dose: 0.25 mg Prednisone (Deltasone -) 40 mg PO DAILY [facility] Last Admin: 11/07/19 10:21 Dose: 40 mg Pregabalin (Lyrica -) 150 mg PO BID [facility] Last Admin: 11/07/19 10:22 Dose: 150 mg Rosuvastatin Calcium (Crestor -) 10 mg PO HS [facility] Last Admin: 11/06/19 21:49 Dose: 10 mg Constitutional: Yes: NAD Eyes: Yes: WNL HENT: Yes: WNL Neck: Yes: WNL Cardiovascular: Yes: Pulse Irregular, S1, S2 Respiratory: Yes: Scattered Rhonchi, no wheezes Gastrointestinal: Yes: Normal Bowel Sounds, Soft Extremities: Yes: WNL Edema: No Labs: Problem List - Problems (1) GERD (gastroesophageal reflux disease) Code(s): K21.9 - GASTRO-ESOPHAGEAL REFLUX DISEASE WITHOUT ESOPHAGITIS (2) HLD (hyperlipidemia) Code(s): E78.5 - HYPERLIPIDEMIA, UNSPECIFIED (3) HTN (hypertension) Code(s): I10 - ESSENTIAL (PRIMARY) HYPERTENSION Qualifiers: Hypertension type: essential hypertension Qualified Code(s): I10 - Essential (primary) hypertension Assessment/Plan Acute Asthma Exacerbation Atrial Fibrillation HTN Hyperlipidemia GERD Hypothyroidism - Cepacol - Prednisone - inhaled bronchodilators - O2 to keep Spo2 >90% - outpt PFTs - DVT prophylaxis - Contunued Incentive Spirometry - DC planning Dr Mitchell
[2019-11-07] MEDS: ROSUVASTATIN CA 10 MG TABLET (FP) PO SCH (21:45)
[2019-11-08] MEDS: guaiFENesin 200 MG/10 ML 10 ML UNIT-DOSE CUPS PO PRN (05:23)
[2019-11-08] MEDS: LEVOTHYROXINE NA 50 MCG TABLET (FP) PO SCH (06:37)
--- NOTE | 2019-11-08 08:18 | DS ---
Physical Exam: SUBJECTIVE: Patient seen and examined OBJECTIVE: Vital Signs Period Temp Pulse Resp BP Sys/Bocanegra Pulse Ox Last 24 Hr 98.1 F-98.4 F 66-77 18-20 122-154/62-74 94-95 PHYSICAL EXAM GENERAL: The patient is awake, alert, and fully oriented, in no acute distress. HEAD: Normal with no signs of trauma. EYES: PERRL, extraocular movements intact, sclera anicteric, conjunctiva clear. ENT: Ears normal, nares patent, oropharynx clear without exudates, moist mucous membranes. NECK: Trachea midline, full range of motion, supple. LUNGS: Breath sounds equal, clear to auscultation bilaterally, no wheezes, no crackles, no accessory muscle use. HEART: Regular rate and rhythm, S1, S2 without murmur, rub or gallop. ABDOMEN: Soft, nontender, nondistended, normoactive bowel sounds, no guarding, no rebound, no hepatosplenomegaly, no masses. EXTREMITIES: 2+ pulses, warm, well-perfused, no edema. NEUROLOGICAL: Cranial nerves II through XII grossly intact. Normal speech, gait not observed. PSYCH: Normal mood, normal affect. SKIN: Warm, dry, normal turgor, no rashes or lesions noted. LABS HOSPITAL COURSE: Date of Admission:11/03/19 Date of Discharge: 11/08/19 79 year old female with past medical history of Breast CA s/p left lumpectomy, MVP, Atrial fibrillation, HTN, HLD, GERD, depression/anxiety and hypothyroidism, admitted with SOB, which she developed after receiving nerve block for elective R total shoulder replacement surgery, resulting in treatment of acute asthma exacerbation. 1. Acute Asthma Exacerbation - resolved Wheezing resolved - transitioned from IV to oral Prednisone. Ongoing cough - repeat CXR (PA/LAT) unremarkable for acute pathology Continue Symbicort, IBD Pulm followed through out stay Pre/post done at qualified for home O2 however pt refusing to use at home. Spoke with daughter at will set us if pt needs 2. RUE weakness/numbness s/p right interscalene block with exparel As per Anesthesia, can expect right upper extremity weakness and numbness for 2- 4 days. Right total shoulder replacement surgery cancelled - to be rescheduled at a later date once discharged. 3. Atrial Fibrillation Continue BB Eliqueladia 4. HTN - continue Toprol and Cozaar 5. Hypothyroidism - continue Levothyroxine. 6. Depression/Anxiety - continue Lexapro. 7. Hx of BRIGITTE - on Ferrous Sulfate. 8. DVT Px - on Eliquis. [facility] stable to [facility] Minutes to complete discharge: 40 Discharge Summary Problems reviewed: Yes Reason For Visit: OSTEOARTHRITIS RIGHT SHOULDER Current Active Problems Acute asthma exacerbation (Acute) Anemia (Acute) Atrial fibrillation (Acute) Breast CA (Acute) DVT prophylaxis (Acute) GERD (gastroesophageal reflux disease) (Acute) Hypertension (Acute) MVP (mitral valve prolapse) (Acute) Prophylactic measure (Acute) S/p reverse total shoulder arthroplasty (Acute) Shoulder joint replacement status (Acute) TIA (transient ischemic attack) (Acute) Condition: Improved - Instructions Diet, Activity, Other Instructions: DISCHARGE YOUR VISIT You came to the hospital because you were planned to have shoulder surgery and developed difficulty breathing difficulties. The surgery was canceled and you well given antibiotics and steroids and you improved. You were approved for oxygen at home. There will be no additional cost to you. You the oxygen only if you need it. If you increase your activity and feel short of breath use the oxygen. MEDICATIONS Please continue to take your home medications as prescribed. There was some changes Prednisone (steroid) 30mg x 2 days 20 mg x 2 days 10 mg x 2 days stop DIET Continue your home diet. ADDITIONAL CARE Please make an appointment to see your primary care provider, Carl 1 week from today. Talk to Dr Carl alegria formal pulmonary function tests Make an appoinment with Dr Diaz to follow up as well. ADDITIONAL INFORMATION Please call 911 or come directly to the emergency department if you experience unusual headache, vision change, shortness of breath, chest pain, numbness, tingling, loss of alertness/awareness, loss of function, unusual bleeding or any alarming symptoms. Thank you for allowing me to care for you. Cameron Culp, [facility], [facility] [phone] Referrals: Aureliano Henry MD [Staff Physician] - 1 Week Ankit Goode MD [Staff Physician] - 1 Week Disposition: HOME - Home Medications Comprehensive Discharge Medication List: Ambulatory Orders Ferrous Fumarate [Iron] 325 mg PO DAILY 10/16/11 Levothyroxine [Synthroid -] 50 mcg PO DAILY 10/16/11 Metoprolol "Xl" (Sustain Act) [Toprol Xl] 50 mg PO DAILY 10/16/11 Rosuvastatin [Crestor -] 10 mg PO HS #0 01/06/14 Cyanocobalamin [Vitamin B12 -] 2,500 mcg PO DAILY 06/07/14 Losartan Potassium 50 mg PO DAILY 06/07/14 Pramipexole Di-HCl [Mirapex] 0.25 mg PO BID 06/07/14 Apixaban [Eliquis] 5 mg PO BID 11/18/17 Ascorbate Calcium [Vitamin C] 500 mg PO DAILY 11/18/17 Albuterol 2.5/Ipratropium 0.5 [Duoneb -] 1 amp NEB RTID #0 amp 11/21/17 Budesonide/Formeterol Fumarate [SYMBICORT 80/4.5mcg -] 2 puff IH BID inhaler 11/21/17 Nitroglycerin [Nitrostat] 0.4 mg SL PRN PRN 02/05/18 Escitalopram Oxalate [Lexapro -] 20 mg PO DAILY tablet 02/19/18 Pregabalin [Lyrica -] 150 mg PO BID cap MDD 300mg 02/19/18 Calcium Carbonate/Vitamin D3 [Calcium 600+D Softgel] 1 each PO DAILY 11/02/19 Tramadol HCl/Acetaminophen [Tramadol-Acetaminophn 37.5-325] 1 each PO DAILY 11/02/19 Prescription Drug Monitoring Program (I-STOP) results: I-STOP reviewed and no issues identified Problem List - Problems (1) TIA (transient ischemic attack) Code(s): G45.9 - TRANSIENT CEREBRAL ISCHEMIC ATTACK, UNSPECIFIED (2) GERD (gastroesophageal reflux disease) Code(s): K21.9 - GASTRO-ESOPHAGEAL REFLUX DISEASE WITHOUT ESOPHAGITIS (3) Anemia Code(s): D64.9 - ANEMIA, UNSPECIFIED (4) S/p reverse total shoulder arthroplasty Code(s): Z96.619 - PRESENCE OF UNSPECIFIED ARTIFICIAL SHOULDER JOINT (5) Prophylactic measure Code(s): Z29.9 - ENCOUNTER FOR PROPHYLACTIC MEASURES, UNSPECIFIED (6) Afib Code(s): I48.91 - UNSPECIFIED ATRIAL FIBRILLATION Qualifiers: Atrial fibrillation type: chronic (7) Asthma Code(s): J45.909 - UNSPECIFIED ASTHMA, UNCOMPLICATED (8) CAD (coronary artery disease) Code(s): I25.10 - ATHSCL HEART DISEASE OF [place] CORONARY ARTERY W/O ANG PCTRS (9) CHF (congestive heart failure) Code(s): I50.9 - HEART FAILURE, UNSPECIFIED (10) COPD (chronic obstructive pulmonary disease) Code(s): J44.9 - CHRONIC OBSTRUCTIVE PULMONARY DISEASE, UNSPECIFIED (11) Hypothyroid Code(s): E03.9 - HYPOTHYROIDISM, UNSPECIFIED (12) Breast CA Code(s): C50.919 - MALIGNANT NEOPLASM OF UNSP SITE OF UNSPECIFIED FEMALE BREAST (13) MVP (mitral valve prolapse) Code(s): I34.1 - NONRHEUMATIC MITRAL (VALVE) PROLAPSE This patient is new to me today: No Emergency Visit: Yes ED Registration Date: 11/03/19 Care time: The patient presented to the Emergency Department on the above date and was hospitalized for further evaluation of their emergent condition. Critical Care patient: No - Discharge Referral Referred to [facility] Med P.C.: No
[2019-11-08] MEDS: ALBUTEROL SO4 2.5/IPRATROPIUM 0.5 INH SOL 3 ML VIAL.NEB. NEB SCH (08:46)
[2019-11-08] MEDS: LOSARTAN POTASSIUM 50 MG TABLET (FP) PO SCH (10:27)
[2019-11-08] MEDS: ESCITALOPRAM OXALATE 10 MG TABLET PO SCH (10:27)
[2019-11-08] MEDS: PANTOPRAZOLE 40 MG TABLET PO SCH (10:27)
[2019-11-08] MEDS: PRAMIPEXOLE DIHYDROCHLORIDE 0.25 MG TABLET PO SCH (10:27)
[2019-11-08] MEDS: predniSONE 20 MG TABLET (UD) PO SCH (10:27)
[2019-11-08] MEDS: APIXABAN 5 MG TABLET PO SCH (10:27)
[2019-11-08] MEDS: PREGABALIN 75 MG CAPSULE PO SCH (10:27)
[2019-11-08] MEDS: FERROUS SO4 325 MG TABLET (FP) PO SCH (10:27)
[2019-11-08] MEDS: BUDESONIDE/FORMETEROL FUMARATE 80/4.5 mcg INHALER IH SCH (10:28)
[2019-11-08 10:43] VITALS: BP 124/53; PULSE 77; TEMP 98.4
[2019-11-08] MEDS ORDERED: predniSONE 20 MG TABLET (UD) PO SCH (11:16)
--- NOTE | 2019-11-08 13:35 | PN ---
Progress Note (short form) - Note Progress Note: Feels better. Sore throat and cough are better. No CP. No acute events overnight. Intake & Output 11/05/19 11/06/19 11/07/19 11/08/19 23:59 23:59 23:59 23:59 Intake Total 310 500 Balance 310 500 Last Vital Signs Temp Pulse Resp BP Pulse Ox 98.4 F 77 20 124/53 L 94 L 11/08/19 10:00 11/08/19 10:00 11/08/19 10:00 11/08/19 10:00 11/08/19 11:53 Active Medications Acetaminophen (Tylenol -) 650 mg PO Q6H PRN PRN Reason: Fever Last Admin: 11/06/19 10:59 Dose: 650 mg Albuterol/Ipratropium (Duoneb -) 1 amp NEB RTID [facility] Last Admin: 11/08/19 08:46 Dose: 1 amp Apixaban (Eliquis -) 5 mg PO BID [facility] Last Admin: 11/08/19 10:27 Dose: 5 mg Benzocaine/Menthol (Cepacol Lozenge -) 1 each MM PRN PRN PRN Reason: SORE THROAT Last Admin: 11/07/19 21:46 Dose: 1 each Budesonide/Formoterol Fumarate (Symbicort 80/4.5mcg -) 2 puff IH BID [facility] Last Admin: 11/08/19 10:28 Dose: 2 puff Escitalopram Oxalate (Lexapro -) 20 mg PO DAILY [facility] Last Admin: 11/08/19 10:27 Dose: 20 mg Ferrous Sulfate (Feosol -) 325 mg PO DAILY [facility] Last Admin: 11/08/19 10:27 Dose: 325 mg Guaifenesin (Robitussin -) 10 ml PO Q6H PRN PRN Reason: COUGH Last Admin: 11/08/19 05:23 Dose: 10 ml Levothyroxine Sodium (Synthroid -) 50 mcg PO ACBK [facility] Last Admin: 11/08/19 06:37 Dose: 50 mcg Losartan Potassium (Cozaar -) 50 mg PO DAILY [facility] Last Admin: 11/08/19 10:27 Dose: 50 mg Metoprolol Succinate (Toprol Xl -) 50 mg PO DAILY [facility] Last Admin: 11/08/19 10:27 Dose: 50 mg Nitroglycerin (Nitrostat -) 0.4 mg SL PRN PRN PRN Reason: pain Pantoprazole Sodium (Protonix -) 40 mg PO DAILY [facility] Last Admin: 11/08/19 10:27 Dose: 40 mg Pramipexole Dihydrochloride (Mirapex -) 0.25 mg PO BID [facility] Last Admin: 11/08/19 10:27 Dose: 0.25 mg Prednisone (Deltasone -) 0 mg PO DAILY [facility]; Taper Stop: 11/13/19 09:59 Pregabalin (Lyrica -) 150 mg PO BID [facility] Last Admin: 11/08/19 10:27 Dose: 150 mg Rosuvastatin Calcium (Crestor -) 10 mg PO HS [facility] Last Admin: 11/07/19 21:45 Dose: 10 mg Constitutional: Yes: NAD Eyes: Yes: WNL HENT: Yes: WNL Neck: Yes: WNL Cardiovascular: Yes: Pulse Irregular, S1, S2 Respiratory: Yes: Scattered Rhonchi, no wheezes Gastrointestinal: Yes: Normal Bowel Sounds, Soft Extremities: Yes: WNL Edema: No Labs: Problem List - Problems (1) GERD (gastroesophageal reflux disease) Code(s): K21.9 - GASTRO-ESOPHAGEAL REFLUX DISEASE WITHOUT ESOPHAGITIS (2) HLD (hyperlipidemia) Code(s): E78.5 - HYPERLIPIDEMIA, UNSPECIFIED (3) HTN (hypertension) Code(s): I10 - ESSENTIAL (PRIMARY) HYPERTENSION Qualifiers: Hypertension type: essential hypertension Qualified Code(s): I10 - Essential (primary) hypertension Assessment/Plan Acute Asthma Exacerbation Atrial Fibrillation HTN Hyperlipidemia GERD Hypothyroidism - Cepacol - Prednisone - inhaled bronchodilators - O2 to keep Spo2 >90% - outpt PFTs - DVT prophylaxis - Contunued Incentive Spirometry - DC planning with home O2 Dr Mitchell
== END 2019-11-08 14:00 | disposition home or self-care (01) | DRG 202 ==
LOC: JASUSAT 08:02 → JSAMEDAYSX 08:03 → J4W 14:30
PROVIDERS: ADMIT Orthopaedic Surgery; ATTEND Nurse Practitioner Acute Care
DX: J45.901 Unspecified asthma with (acute) exacerbation (principal); J96.00 Acute respiratory failure, unspecified whether with hypoxia or hypercapnia; Z85.3 Personal history of malignant neoplasm of breast; I48.91 Unspecified atrial fibrillation; I10 Essential (primary) hypertension; E78.5 Hyperlipidemia, unspecified; K21.9 Gastro-esophageal reflux disease without esophagitis; E03.9 Hypothyroidism, unspecified; M19.011 Primary osteoarthritis, right shoulder; D64.9 Anemia, unspecified; F41.8 Other specified anxiety disorders
CPT/HCPCS: 36415; 71045-TC-FY; 71046-TC-FY; 80053; 81003; 82550; 83735; 84443; 84484; 85025; 93005; 93010; 94010; 94640; 94760; 94761; 97116-GP; 97162-GP

== ENCOUNTER 2020-03-01 12:33 | Observation (INO) | payer OTHER, MEDICARE ==
--- NOTE | 2020-03-01 12:41 | PDOC ---
Rapid Medical Evaluation Time Seen by Provider: 03/01/20 12:34 Medical Evaluation: Allergies Allergy/AdvReac Type Severity Reaction Status Date / Time No Known Drug Allergies Allergy Verified 03/01/20 12:36 03/01/20 12:39 CC: was moving groceries and then woke up on floor, now with bruising and pain to face, on eliquis Exam: noted diffuse ecchymosis to rt side of face and mandible, vss, aox 3 Plan: labs, imaging, cxr, ekg, urine Discharge Disposition - Diagnosis Head injury - Referrals - Patient Instructions - Post Discharge Activity
[2020-03-01 13:30] LABS: BASO % 0.6 % (0-2.0); EOS % 4.3 % (0-4.5); HEMOGLOBIN 11.3 GM/dL (10.7-15.3); LYMPH % 34.8 % (8-40); MCH 31.3 pg (25.7-33.7); MCHC 33.2 g/dl (32.0-36.0); MEAN CELL VOLUME 94.2 fl (80-96); MEAN PLT VOLUME 9.2 fl (7.5-11.1); MONO % 10.9 % (3.8-10.2); NEUT % 49.4 % (42.8-82.8); PLATELET COUNT 162 K/MM3 (134-434); RBC 3.61 M/mm3 (3.60-5.2); RDW 14.4 % (11.6-15.6); WHITE BLOOD COUNT 5.5 K/mm3 (4.0-10.0)
--- NOTE | 2020-03-01 13:32 | PDOC ---
History of Present Illness - General Chief Complaint: Injury Stated Complaint: FALL Time Seen by Provider: 03/01/20 12:34 Past History - Medical History Allergies/Adverse Reactions: Allergies Allergy/AdvReac Type Severity Reaction Status Date / Time No Known Drug Allergies Allergy Verified 03/01/20 12:36 Home Medications: Ambulatory Orders Ferrous Fumarate [Iron] 325 mg PO DAILY 10/16/11 Metoprolol "Xl" (Sustain Act) [Toprol Xl] 50 mg PO DAILY 10/16/11 Losartan Potassium 50 mg PO DAILY 06/07/14 Pramipexole Di-HCl [Mirapex] 0.25 mg PO BID 06/07/14 Acetaminophen [Tylenol .Regular Strength -] 650 mg PO Q6H PRN tablet 11/08/19 Apixaban [Eliquis] 5 mg PO BID #60 tablet 11/08/19 Ascorbate Calcium [Vitamin C] 500 mg PO DAILY #30 tablet 11/08/19 Budesonide/Formeterol Fumarate [SYMBICORT 80/4.5mcg -] 2 puff IH BID #1 inhaler 11/08/19 Calcium Carbonate/Vitamin D3 [Calcium 600+D Softgel] 1 each PO DAILY #30 capsule 11/08/19 Cyanocobalamin [Vitamin B12 -] 2,500 mcg PO DAILY #30 tablet 11/08/19 Escitalopram Oxalate [Lexapro -] 20 mg PO DAILY #30 tablet 11/08/19 Ferrous Sulfate [Feosol] 325 mg PO DAILY #30 ud 11/08/19 Levothyroxine [Synthroid -] 50 mcg PO DAILY #30 tablet 11/08/19 Losartan Potassium [Cozaar -] 50 mg PO DAILY #30 tablet 11/08/19 Metoprolol Succinate [Toprol XL -] 50 mg PO DAILY #30 tab.sr.24h 11/08/19 Pantoprazole Sodium [Protonix -] 40 mg PO DAILY #30 tablet.ec 11/08/19 Pramipexole Dihydrochloride [Mirapex -] 0.25 mg PO BID #60 tablet 11/08/19 Pregabalin [Lyrica -] 150 mg PO BID #120 cap MDD 300mg 11/08/19 Rosuvastatin [Crestor -] 10 mg PO HS #30 tablet 11/08/19 predniSONE [Deltasone -] See Taper PO DAILY #12 tablet 11/08/19 Anemia: Yes Asthma: No Cancer: Yes (LEFT mastectomy) Cardiac Disorders: Yes (mvp, AFIB) CVA: No COPD: No CHF: No Dementia: No Diabetes: No GI Disorders: No (acid reflux) Disorders: Yes HTN: Yes Hypercholesterolemia: Yes Liver Disease: No Seizures: No Thyroid Disease: Yes - Surgical History Abdominal Surgery: No Appendectomy: No Cardiac Surgery: No Cholecystectomy: No Lung Surgery: No Neurologic Surgery: No Orthopedic Surgery: Yes (r fx patella surg times 6, r knee replacement) - Immunization History Immunization Up to Date: No - Psycho-Social/Smoking History Smoking Status: No Smoking History: Never smoked Have you smoked in the past 12 months: No Number of Cigarettes Smoked Daily: 0 - Substance Abuse Hx (Audit-C & DAST Scrn) How often the patient has a drink containing alcohol: Never Score: In Men: 4 or > Positive; In Women: 3 or > Positive: 0 Screen Result (Pos requires Nsg. Audit-10AR): Negative In the last yr the pt used illegal drug/Rx for NonMed reason: No Score: Yes response is considered Positive: 0 Screen Result (Positive result requires Nsg. DAST-10): Negative *Physical Exam - Vital Signs Last Vital Signs Temp Pulse Resp BP Pulse Ox 98.4 F 58 L 16 133/63 97 03/01/20 12:36 03/01/20 12:36 03/01/20 12:36 03/01/20 12:36 03/01/20 12:36 ED Treatment Course - LABORATORY CBC & Chemistry Diagram: 03/01/20 13:10 03/01/20 13:10 Medical Decision Making - Medical Decision Making 03/01/20 13:31 HPI: 80yo F hx HTN, HLD, COPD, CAD, Afib on eliquis, hypothyroidism, breast cancer (s/p surgery, chemo and radiation 10 years ago), s/p b/l knee replacements and hip replacement, ankle sprain (4 weeks ago) presents from home c/o face pain s/p fall vs syncope with collapse onto face this PM. Pt was carrying 2 bags of groceries trying to open door and fell forward onto face. Pt denies LOC or synco pe but states she doesn't remember tripping over anything and doesn't remember exactly what happened. She fell onto her knees and hands and c/o b/l back of hand pain, b/l anterior knee pain, neck pain, face pain, and lower back pain (chronic lower back pain/discitis worsened today). Pt in [facility] prior to event. Pt able to stand up and walk with cane (normally ambulates with cane) after event. Denies any prodromal CP or palpitations or lightheadedness/dizziness, seizure like activity, incontinence, hip pain, other injuries, headache, nausea, vomiting, fever, chills, SOB, back pain, neck pain, hip pain, abdominal pain, diarrhea, constipation, blood in stool, numbness/tingling, weakness. Last tetanus unknown. PCP - Edward Henry ROS: Constitutional: Negative for chills, fever, fatigue, diaphoresis. HENT: Positive for face pain and ecchymoses. Negative for sore throat, rhinorrhea, congestion. Eyes: Negative for visual disturbance. Respiratory: Negative for shortness of breath, cough, and wheezing. Cardiovascular: Negative for chest pain, palpitations, and leg swelling. Gastrointestinal: Negative for abdominal pain, blood in stool, constipation, diarrhea, nausea, and vomiting. Genitourinary: Negative for dysuria, flank pain, and hematuria. Musculoskeletal: Positive for knee pain, hand pain, back pain, and neck pain. Negative for myalgias. Skin: Negative for rash. Neurological: Positive for ?syncope. Negative for light-headedness, dizziness, vertigo, weakness, numbness and headaches. Psychiatric/Behavioral: Negative for behavioral problems and confusion. PE: Gen: Alert, NAD, comfortable-appearing. HEENT: PERRL, EOMI, MMM, NC, ecchymosis to R side of chin, cheek, forehead, and nose. TTP nose, blood in R nare. Teeth intact. Pt able to open mouth completely and hold tongue depressor with teeth in both sides while twist until breaking. No conjunctival pallor. Sclera are non-icteric. Oropharynx is clear. Blood on tongue. CV: Regular rate and rhythm. No murmurs, rubs, or gallops. PULM: No resp distress. CTAB, no wheezes, rales, or rhonchi. ABD: soft, NT/ND, no rebound tenderness or guarding, no CVA tenderness. BACK: + midline TTP of c/l-spine. No TTP of t-spine. No step-offs or deformities. MSK: No TTP of clavicles. Pelvis stable, intact. No bony deformities. 2+ pulses in all extremities. NEURO: AAOx3. PERRL. CN 2-12 intact. 5/5 strength in all extremities. Sensation to light touch intact in all extremities. No pronator drift. No dysmetria. No dysdiadochokinesia. No abnormal nystagmus. EXTREMITIES: No cyanosis. No clubbing. BUEs: 2+ pulses, no bony deformities, full ROM of elbows and shoulders and wrists, wiggles fingers appropriately, slight TTP posterior hands, no snuffbox tenderness. RLE: 2+ pitting edema to below knee, 2+ pulses, no TTP, no calf tenderness, full ROM of ankle and knee, TTP R knee, no tibial plateau tenderness, no laxity. LLE: no edema, 2+ pulses, no TTP, no calf tenderness, full ROM of ankle and knee, TTP R knee, no tibial plateau tenderness, no laxity. PSYCH: Normal mood and thought pattern. SKIN: Warm and dry. Normal capillary refill. No rashes. No jaundice. MDM: 80yo F hx HTN, HLD, COPD, CAD, Afib on eliquis, hypothyroidism, breast cancer (s/p surgery, chemo and radiation 10 years ago), s/p b/l knee replacements and hip replacement, ankle sprain (4 weeks ago) presents from home with hand, neck, knee, back, and face pain s/p fall vs syncope with collapse onto face this PM. Hemodynamically stable, afebrile, neurologically intact. Ddx: syncope vs seizure, ICH, SAH, stroke, ACS/KS, arrhythmia, thyroid pathology, vasovagal, orthostatic, UTI, infection, metabolic derangement, anemia. Obtain imaging to r/o fractures or ICH. Due to RLE swelling, obtain US to r/o DVT (low concern due to hx of ankle sprain and pt on eliquis). -EKG -CXR, XRs hands/knees/lumbosacral spine -Duplex RLE -CTH/c-spine/maxillofacial -CBC,CMP,Mg,TSH,Cardiac profile,UA/UC -Tetanus -Pain management -Dispo: pending workup and reassessment, likely admit tele obs syncope 03/01/20 14:[address] scan, pt hit top of head on head of marketing while sliding up scanner, witnessed by theater technician. Incident report filled out. CT scans done after injury. EKG reviewed: sinus rhythm with 1st degree AV block with occasional PVCs, 93bpm, QTc 499ms, MA interval 236ms, normal axis, no e/o acute ischemia, no significant changes compared to prior CTH reviewed: no acute pathology CXR reviewed: cardiomegaly, no acute pathology Labs reviewed: no concerning findings 03/01/20 15:40 US reviewed: no DVT 03/01/20 16:15 CT c-spine reviewed: no acute pathology Urine reviewed: no UTI or concerning findings 03/01/20 16:34 CT maxillofacial reviewed: no acute pathology 03/01/20 16:42 []XR reads Signed out to Dr Bryant admitting. 03/01/20 17:47 XRs reviewed - no concerning acute pathology Discharge - Discharge Information Problems reviewed: Yes Clinical Impression/Diagnosis: Head injury, Syncope and collapse Condition: Stable - Admission Yes - Follow up/Referral - Patient Discharge Instructions - Post Discharge Activity
[2020-03-01 13:37] LABS: INR 1.64 (0.83-1.09); PROTHROMBIN TIME (PATIENT) 19.5 SEC (9.7-13.0)
[2020-03-01 14:03] LABS: ALBUMIN 3.2 g/dl (3.4-5.0); ALK PHOS 55 U/L (45-117); ANION GAP 5 MMOL/L (8-16); BILIRUBIN,TOTAL 0.5 mg/dL (0.2-1); CALCIUM 8.2 mg/dL (8.5-10.1); CHLORIDE 108 mmol/L (98-107); CO2 28 mmol/L (21-32); CREATININE 0.6 mg/dL (0.55-1.3); GLUCOSE,RANDOM 92 mg/dL (74-106); MAGNESIUM 1.7 mg/dL (1.8-2.4); POTASSIUM 4.2 mmol/L (3.5-5.1); SGOT/AST 32 U/L (15-37); SGPT/ALT 24 U/L (13-61); SODIUM 141 mmol/L (136-145); TOT PROT 6.5 g/dl (6.4-8.2)
[2020-03-01] MEDS ORDERED: ACETAMINOPHEN 1000 MG/100 ML VIAL (NON FORMULARY) IVPB ONE (14:21)
[2020-03-01] MEDS ORDERED: DIPHTH,PERTUSS(ACELL),TET 0.5 ML DISP.SYRIN IM ONE ×2 (14:36→16:31)
[2020-03-01] MEDS ORDERED: ACETAMINOPHEN INJECTION 100 ML IVPB ONE ×2 (14:40→21:19)
[2020-03-01 15:56] LABS: EPI CELLS 4 /uL (0-25.1); HYALINE CASTS 0 /uL (0-3.1); PH,URINE 5.5 (5.0-8.0); URINE APPEARANCE CLEAR; URINE BACTERIA 53 /uL (0-1359); URINE BILIRUBIN NEGATIVE (NEGATIVE); URINE COLOR YELLOW; URINE GLUCOSE (UA) NEGATIVE (NEGATIVE); URINE KETONE NEGATIVE (NEGATIVE); URINE LEUK ESTERASE NEGATIVE (NEGATIVE); URINE NITRITE NEGATIVE (NEGATIVE); URINE PROTEIN NEGATIVE (NEGATIVE); URINE RBC 78 /uL (0-23.9); URINE UROBILINOGEN 0.2 mg/dL (0.2-1.0); URINE WBC 17 /uL (0-25.8)
--- NOTE | 2020-03-01 16:00 | PDOC ---
Documentation entered by Ruma Mullen SCRIBE, acting as scribe for Wilner Cortes MD. Wilner Cortes MD: This documentation has been prepared by the Paz martinez Adrianna, SCRIBE, under my direction and personally reviewed by me in its entirety. I confirm that the documentation accurately reflects all work, treatment, procedures, and medical decision making performed by me. Attending Attestation - Resident Resident Name: Marisela Perry - ED Attending Attestation I have performed the following: I have examined & evaluated the patient, The case was reviewed & discussed with the resident, I agree w/resident's findings & plan, Exceptions are as noted - HPI HPI: The patient is an 80 year old female, with a significant PMH of HTN, HLD, COPD, CAD, Afib (on eliquis), hypothyroidism, breast cancer (s/p surgery, chemo and radiation 10 years ago), s/p bilateral total knee replacements and hip replacement, and recent right ankle sprain (4 weeks ago) who presents to the ED for evaluation of fall. Patient was carrying groceries when she states that her foot got caught causing her to trip and fall. She reports hitting her face, denies LOC, but admits to not being able to recall the entire event. Patient notes she fell onto her knees, hands, and now complains of low back pain, hand pain, bilateral knee pain, cervical pain, facial pain. Denies any chest pain, SOB, lightheadedness, dizziness, or palpitations. Allergies: NKA, NKDA Surgical History: right patellar fracture, right knee replacement Social History: No toxic habits PCP: Dr. Henry - Physicial Exam PE: See resident exam - Medical Decision Making 03/01/20 16:01 80 F with fall. - Labs - CT/XR Discharge - Discharge Information Problems reviewed: Yes Clinical Impression/Diagnosis: Head injury, Syncope and collapse Condition: Improved - Follow up/Referral - Patient Discharge Instructions - Post Discharge Activity
--- NOTE | 2020-03-01 16:00 | EKG ---
Test Reason : Blood Pressure : / mmHG Vent. Rate : 093 BPM Atrial Rate : 093 BPM P-R Int : 236 ms QRS Dur : 084 ms QT Int : 402 ms P-R-T Axes : 100 -07 024 degrees QTc Int : 499 ms POOR DATA QUALITY, INTERPRETATION MAY BE ADVERSELY AFFECTED SINUS RHYTHM WITH 1ST DEGREE A-V BLOCK WITH OCCASIONAL PREMATURE VENTRICULAR COMPLEXES NONSPECIFIC ST ABNORMALITY ABNORMAL ECG WHEN COMPARED WITH ECG OF 03-NOV-2019 15:36, PREMATURE VENTRICULAR COMPLEXES ARE NOW PRESENT QT HAS LENGTHENED Confirmed by MD Jasmina, Shakir ([id number]) on 03/01/2020 3:59:29 PM Referred By: Confirmed By:Shakir Freedman MD
--- NOTE | 2020-03-01 18:15 | HP ---
CHIEF COMPLAINT: Fall HISTORY OF PRESENT ILLNESS: 80 year old female with known history of hypertension, hyperlipidemia, COPD, CAD, Atrial fibrillation (on eliquis), Parkinson, hypothyroidism, breast cancer sp lumpectomy, chemo, radiation 10 years ago, bilateral total knee replacement and left hip replacement, recent right ankle sprain (4 weeks ago) who presents to the ED after she had fallen. She reports that after she ran her errands she was in the process of unlocking the door when she felt dizzy, felt a sharp left sided chest pain (for a moment) and then lost her balance and fell to the ground. She does not think she lost consciousness but is not certain. She sustained bruises on the right side of the face. The narrative she gave to the ED staff on the other hand is slightly different: she lost her footing when it got caught in something and she fell to the ground. Of note, while at the CT scanner, she inadvertently bumped the top of her head against the CT scanner as well. No LOC Recent Travel: none PAST MEDICAL HISTORY: as above PAST SURGICAL HISTORY: as above Family history: does not recall Social History: Smoking: denies Alcohol:denies Drugs: denies Allergies No Known Drug Allergies Allergy (Verified 03/01/20 12:36) HOME MEDICATIONS: Home Medications Medication Instructions Recorded Ferrous Fumarate [Iron] 325 mg PO DAILY 10/16/11 Metoprolol "Xl" (Sustain Act) 50 mg PO DAILY 10/16/11 [Toprol Xl] Losartan Potassium 50 mg PO DAILY 06/07/14 Pramipexole Di-HCl [Mirapex] 0.25 mg PO BID 06/07/14 Acetaminophen [Tylenol .Regular 650 mg PO Q6H PRN tablet 11/08/19 Strength -] Apixaban [Eliquis] 5 mg PO BID #60 tablet 11/08/19 Ascorbate Calcium [Vitamin C] 500 mg PO DAILY #30 tablet 11/08/19 Budesonide/Formeterol Fumarate 2 puff IH BID #1 inhaler 11/08/19 [SYMBICORT 80/4.5mcg -] Calcium Carbonate/Vitamin D3 1 each PO DAILY #30 capsule 11/08/19 [Calcium 600+D Softgel] Cyanocobalamin [Vitamin B12 -] 2,500 mcg PO DAILY #30 tablet 11/08/19 Escitalopram Oxalate [Lexapro -] 20 mg PO DAILY #30 tablet 11/08/19 Ferrous Sulfate [Feosol] 325 mg PO DAILY #30 ud 11/08/19 Levothyroxine [Synthroid -] 50 mcg PO DAILY #30 tablet 11/08/19 Losartan Potassium [Cozaar -] 50 mg PO DAILY #30 tablet 11/08/19 Metoprolol Succinate [Toprol XL -] 50 mg PO DAILY #30 tab.sr.24h 11/08/19 Pantoprazole Sodium [Protonix -] 40 mg PO DAILY #30 tablet.ec 11/08/19 Pramipexole Dihydrochloride 0.25 mg PO BID #60 tablet 11/08/19 [Mirapex -] Pregabalin [Lyrica -] 150 mg PO BID #120 cap MDD 300mg 11/08/19 Rosuvastatin [Crestor -] 10 mg PO HS #30 tablet 11/08/19 predniSONE [Deltasone -] See Taper PO DAILY #12 tablet 11/08/19 REVIEW OF SYSTEMS CONSTITUTIONAL: Absent: fever, chills, diaphoresis, generalized weakness, malaise, loss of appetite, weight change HEENT: Absent: rhinorrhea, nasal congestion, throat pain, throat swelling, difficulty swallowing, mouth swelling, ear pain, eye pain, visual changes CARDIOVASCULAR: Absent: chest pain, syncope, palpitations, irregular heart rate, lightheadedness, peripheral edema RESPIRATORY: Absent: cough, shortness of breath, dyspnea with exertion, orthopnea, wheezing, stridor, hemoptysis GASTROINTESTINAL: Absent: abdominal pain, abdominal distension, nausea, vomiting, diarrhea, constipation, melena, hematochezia GENITOURINARY: Absent: dysuria, frequency, urgency, hesitancy, hematuria, flank pain, genital pain MUSCULOSKELETAL: Absent: myalgia, arthralgia, Present: ankle pains SKIN: Absent: rash, itching, pallor HEMATOLOGIC/IMMUNOLOGIC: Absent: easy bleeding, easy bruising, lymphadenopathy, frequent infections ENDOCRINE: Absent: unexplained weight gain, unexplained weight loss, heat intolerance, cold intolerance NEUROLOGIC: Absent: headache, focal weakness or paresthesias, dizziness, seizure, mental status changes, bladder or bowel incontinence Present: she ambulates with aid of cane PSYCHIATRIC: Absent: anxiety, depression, suicidal or homicidal ideation, hallucinations. PHYSICAL EXAMINATION Vital Signs - 24 hr 03/01/20 12:36 Temperature 98.4 F Pulse Rate 58 L Respiratory 16 Rate Blood Pressure 133/63 O2 Sat by Pulse 97 Oximetry (%) GENERAL: Pleasant 80 year old female who appears appropriate for stated age; obese, Awake, alert, and fully oriented, in no acute distress. HEAD: she has faint contusion at the frontal scalp EYES: Pupils equal, round and reactive to light, extraocular movements intact, sclera anicteric, conjunctiva clear. No lid lag. EARS, NOSE, THROAT: Ears normal, nares patent, oropharynx clear without exudates. Moist mucous membranes. NECK: Normal range of motion, supple without lymphadenopathy, JVD, or masses. LUNGS: Breath sounds equal, clear to auscultation bilaterally. No wheezes, and no crackles. No accessory muscle use. HEART: Regular rate and rhythm, normal S1 and S2 without murmur, rub or gallop. ABDOMEN: Soft, nontender, not distended, normoactive bowel sounds, no guarding, no rebound, no masses. No hepatomegaly or splenomegaly. MUSCULOSKELETAL: Normal range of motion at all joints. No bony deformities or tenderness. No CVA tenderness. UPPER EXTREMITIES: 2+ pulses, warm, well-perfused. No cyanosis. No clubbing. No peripheral edema. LOWER EXTREMITIES: 2+ pulses, warm, well-perfused. No calf tenderness. No peripheral edema. NEUROLOGICAL: Cranial nerves II-XII intact. Normal speech. Gait not checked. Cranial nerves III-XII intact. . PSYCHIATRIC: Cooperative. Good eye contact. Appropriate mood and affect. SKIN: She has hematoma at the inferior aspect of the right eye, at the right side of the chin, and dried blood from the lower lip where there is a small avulsion. Warm, dry, normal turgor, no rashes or lesions noted, normal capillary refill. Laboratory Results - last 24 hr 03/01/20 03/01/20 03/01/20 13:10 13:10 13:10 WBC 5.5 RBC 3.61 Hgb 11.3 Hct 34.0 MCV 94.2 MCH 31.3 MCHC 33.2 RDW 14.4 Plt Count 162 MPV 9.2 Absolute Neuts (auto) 2.7 Neutrophils % 49.4 D Lymphocytes % 34.8 D Monocytes % 10.9 H Eosinophils % 4.3 D Basophils % 0.6 D Nucleated RBC % 0 PT with INR 19.50 H INR 1.64 H Sodium 141 Potassium 4.2 Chloride 108 H Carbon Dioxide 28 Anion Gap 5 L BUN 14.0 Creatinine 0.6 Est GFR (CKD-EPI)AfAm 99.07 Est GFR (CKD-EPI)NonAf 85.48 Random Glucose 92 Calcium 8.2 L Magnesium 1.7 L Total Bilirubin 0.5 AST 32 ALT 24 Alkaline Phosphatase 55 Creatine Kinase 144 Troponin I < 0.02 Total Protein 6.5 Albumin 3.2 L TSH 1.45 Urine Color Urine Appearance Urine pH Ur Specific [place] Urine Protein Urine Glucose (UA) Urine Ketones Urine Blood Urine Nitrite Urine Bilirubin Urine Urobilinogen Ur Leukocyte Esterase Urine WBC (Auto) Urine RBC (Auto) Urine Casts (Auto) U Epithel Cells (Auto) Urine Bacteria (Auto) Blood Type Antibody Screen 03/01/20 03/01/20 13:10 15:29 WBC RBC Hgb Hct MCV MCH MCHC RDW Plt Count MPV Absolute Neuts (auto) Neutrophils % Lymphocytes % Monocytes % Eosinophils % Basophils % Nucleated RBC % PT with INR INR Sodium Potassium Chloride Carbon Dioxide Anion Gap BUN Creatinine Est GFR (CKD-EPI)AfAm Est GFR (CKD-EPI)NonAf Random Glucose Calcium Magnesium Total Bilirubin AST ALT Alkaline Phosphatase Creatine Kinase Troponin I Total Protein Albumin TSH Urine Color Yellow Urine Appearance Clear Urine pH 5.5 Ur Specific [place] 1.010 Urine Protein Negative Urine Glucose (UA) Negative Urine Ketones Negative Urine Blood 1+ H Urine Nitrite Negative Urine Bilirubin Negative Urine Urobilinogen 0.2 Ur Leukocyte Esterase Negative Urine WBC (Auto) 17 Urine RBC (Auto) 78 Urine Casts (Auto) 0 U Epithel Cells (Auto) 4 Urine Bacteria (Auto) 53 Blood Type A POSITIVE Antibody Screen Negative ASSESSMENT/PLAN: 1. sp fall - unclear if she had lost consciousness or not. - Ddx: cardiac, orthostatic hypotension, neurologic causes, medication induced, mechanical fall - telemetry monitoring - Dr Goode (agricultural research technician) consulted (familiar with patient) - serial neurologic exam, serial troponins - UA - will hold off on apixaban in the interim given recent fall. Re-evaluate in am - orthostatic vitals 2. cont levothyroxine for hypothyroidism 3. cont antihypertensives for hypertension (with parameters) 4. CAD, stable - cardiac monitoring - cont meds (ordered) - serial troponins 5. SCD for DVT prophylaxis 6. Fall precautions Carlo Montana updated of ongoing plans of care. Visit type - Emergency Visit Emergency Visit: Yes ED Registration Date: 03/01/20 Care time: The patient presented to the Emergency Department on the above date and was hospitalized for further evaluation of their emergent condition. - New Patient This patient is new to me today: Yes Date on this admission: 03/14/20 - Critical Care Critical Care patient: No
[2020-03-01] MEDS ORDERED: ACETAMINOPHEN 1000 MG/100 ML VIAL (NON FORMULARY) IVPB PRN (20:06)
[2020-03-01] MEDS ORDERED: ROSUVASTATIN CA 40 MG TABLET PO SCH (22:00)
[2020-03-02] MEDS: CALCIUM 500MG/VIT-D 200 UNITS COMBO TABLET (FP) PO SCH ×3 (00:07→21:49)
[2020-03-02] MEDS: PRAMIPEXOLE DIHYDROCHLORIDE 0.25 MG TABLET PO SCH ×3 (00:07→21:49)
[2020-03-02] MEDS: PREGABALIN 75 MG CAPSULE PO SCH ×3 (00:07→21:49)
[2020-03-02] MEDS: BUDESONIDE/FORMETEROL FUMARATE 80/4.5 mcg INHALER IH SCH ×3 (00:08→21:50)
[2020-03-02 00:43] VITALS: BMI 37.8
[2020-03-02] MEDS: ACETAMINOPHEN 325 MG TABLET (FP) PO PRN (06:01)
[2020-03-02] MEDS: LEVOTHYROXINE NA 50 MCG TABLET (FP) PO SCH (06:01)
[2020-03-02] MEDS ORDERED: ESCITALOPRAM OXALATE 10 MG TABLET ONE (08:59)
[2020-03-02] MEDS ORDERED: PT OWN MED DRAWER 7, Y5N ONE ×2 (09:01→21:31)
[2020-03-02] MEDS: FERROUS SO4 325 MG TABLET (FP) PO SCH (09:28)
[2020-03-02] MEDS: PANTOPRAZOLE 40 MG TABLET PO SCH (09:28)
[2020-03-02] MEDS: ASCORBIC ACID 500 MG TABLET (FP) PO SCH (09:28)
[2020-03-02] MEDS: LOSARTAN POTASSIUM 50 MG TABLET (FP) PO SCH (09:29)
[2020-03-02] MEDS: ESCITALOPRAM OXALATE 20 MG TABLET PO SCH (09:30)
--- NOTE | 2020-03-02 10:56 | CON.CARD ---
Cardiology Consult (text) - Consultation Consultation Note: cc: fall hpi: 80 f hx htn, hld, copd, afib here s/p fall. Pt denies hx cad, [place], pci. She says she was at her home door with groceries. She put groceries on floor and unlocked door. She then turned and bent to get groceries and fell. No prodrome sxs. No loc. No cp sob palps pnd orthopnea. Feels well today. pmh: per hpi psh: breast surgery social: no tob fam: no premature cad ros: per hpi; all others nl meds: Home Medications Medication Instructions Recorded Apixaban [Eliquis] 5 mg PO BID #60 tablet 11/08/19 Ascorbate Calcium [Vitamin C] 500 mg PO DAILY #30 tablet 11/08/19 Calcium Carbonate/Vitamin D3 1 each PO DAILY #30 capsule 11/08/19 [Calcium 600+D Softgel] Escitalopram Oxalate [Lexapro -] 20 mg PO DAILY #30 tablet 11/08/19 Ferrous Sulfate [Feosol] 325 mg PO DAILY #30 ud 11/08/19 Levothyroxine [Synthroid -] 50 mcg PO DAILY #30 tablet 11/08/19 Losartan Potassium [Cozaar -] 50 mg PO DAILY #30 tablet 11/08/19 Metoprolol Succinate [Toprol XL -] 50 mg PO DAILY #30 tab.sr.24h 11/08/19 Pantoprazole Sodium [Protonix -] 40 mg PO DAILY #30 tablet.ec 11/08/19 Pramipexole Dihydrochloride 0.25 mg PO BID #60 tablet 11/08/19 [Mirapex -] Pregabalin [Lyrica -] 150 mg PO BID #120 cap MDD 300mg 11/08/19 Budesonide/Formeterol Fumarate 1 puff IH BID 03/01/20 [SYMBICORT 80/4.5mcg -] Rosuvastatin [Crestor -] 40 mg PO HS 03/01/20 pe: Vital Signs Period Temp Pulse Resp BP Sys/Bocanegra Pulse Ox Last 24 Hr 97.8 F-98.8 F 58-102 16-20 125-153/62-103 96-99 nad no jvd rrr s1s2 no mrg cta bl nl eff aao3 trace le edema bl, no c/c abd nt nd pos bs no jaundice diaphoresis pos dp pt no carotid bruits Laboratory Last Values WBC 5.5 K/mm3 (4.0-10.0) 03/01/20 13:10 RBC 3.61 M/mm3 (3.60-5.2) 03/01/20 13:10 Hgb 11.3 GM/dL (10.7-15.3) 03/01/20 13:10 Hct 34.0 % (32.4-45.2) 03/01/20 13:10 MCV 94.2 fl (80-96) 03/01/20 13:10 MCH 31.3 pg (25.7-33.7) 03/01/20 13:10 MCHC 33.2 g/dl (32.0-36.0) 03/01/20 13:10 RDW 14.4 % (11.6-15.6) 03/01/20 13:10 Plt Count 162 K/MM3 (134-434) 03/01/20 13:10 MPV 9.2 fl (7.5-11.1) 03/01/20 13:10 Absolute Neuts (auto) 2.7 K/mm3 (1.5-8.0) 03/01/20 13:10 Neutrophils % 49.4 % (42.8-82.8) D 03/01/20 13:10 Lymphocytes % 34.8 % (8-40) D 03/01/20 13:10 Monocytes % 10.9 % (3.8-10.2) H 03/01/20 13:10 Eosinophils % 4.3 % (0-4.5) D 03/01/20 13:10 Basophils % 0.6 % (0-2.0) D 03/01/20 13:10 Nucleated RBC % 0 % (0-0) 03/01/20 13:10 PT with INR 19.50 SEC (9.7-13.0) H 03/01/20 13:10 INR 1.64 (0.83-1.09) H 03/01/20 13:10 Sodium 141 mmol/L (136-145) 03/01/20 13:10 Potassium 4.2 mmol/L (3.5-5.1) 03/01/20 13:10 Chloride 108 mmol/L (98-107) H 03/01/20 13:10 Carbon Dioxide 28 mmol/L (21-32) 03/01/20 13:10 Anion Gap 5 MMOL/L (8-16) L 03/01/20 13:10 BUN 14.0 mg/dL (7-18) 03/01/20 13:10 Creatinine 0.6 mg/dL (0.55-1.3) 03/01/20 13:10 Est GFR (CKD-EPI)AfAm 99.07 03/01/20 13:10 Est GFR (CKD-EPI)NonAf 85.48 03/01/20 13:10 Random Glucose 92 mg/dL (74-106) 03/01/20 13:10 Calcium 8.2 mg/dL (8.5-10.1) L 03/01/20 13:10 Magnesium 1.7 mg/dL (1.8-2.4) L 03/01/20 13:10 Total Bilirubin 0.5 mg/dL (0.2-1) 03/01/20 13:10 AST 32 U/L (15-37) 03/01/20 13:10 ALT 24 U/L (13-61) 03/01/20 13:10 Alkaline Phosphatase 55 U/L (45-117) 03/01/20 13:10 Creatine Kinase 144 U/L (26-192) 03/01/20 13:10 Troponin I < 0.02 ng/ml (0.00-0.05) 03/01/20 20:58 Total Protein 6.5 g/dl (6.4-8.2) 03/01/20 13:10 Albumin 3.2 g/dl (3.4-5.0) L 03/01/20 13:10 TSH 1.45 uIU/ml (0.358-3.74) 03/01/20 13:10 Urine Color Yellow 03/01/20 15:29 Urine Appearance Clear 03/01/20 15:29 Urine pH 5.5 (5.0-8.0) 03/01/20 15:29 Ur Specific [place] 1.010 (1.010-1.035) 03/01/20 15:29 Urine Protein Negative (NEGATIVE) 03/01/20 15:29 Urine Glucose (UA) Negative (NEGATIVE) 03/01/20 15:29 Urine Ketones Negative (NEGATIVE) 03/01/20 15:29 Urine Blood 1+ (NEGATIVE) H 03/01/20 15: Urine Nitrite Negative (NEGATIVE) 03/01/20 15: Urine Bilirubin Negative (NEGATIVE) 03/01/20 15:29 Urine Urobilinogen 0.2 mg/dL (0.2-1.0) 03/01/20 15:29 Ur Leukocyte Esterase Negative (NEGATIVE) 03/01/20 15:29 Urine WBC (Auto) 17 /uL (0-25.8) 03/01/20 15:29 Urine RBC (Auto) 78 /uL (0-23.9) 03/01/20 15: Urine Casts (Auto) 0 /uL (0-3.1) 03/01/20 15: U Epithel Cells (Auto) 4 /uL (0-25.1) 03/01/20 15:29 Urine Bacteria (Auto) 53 /uL (0-1359) 03/01/20 15:29 Blood Type A POSITIVE 03/01/20 13:10 Antibody Screen Negative 03/01/20 13:10 ecg: sr 1st avb, nl qtc, no ischemic changes tele: sr cxr: clear lungs a/p: 80 f hx htn, hld, copd, afib here s/p fall. fall: -details unclear, possibly syncope but mechanical also likely -no signs chf, acs, arrhythmia -check ortho vitals, echo, monitor on tele -consider PT eval htn: -cont home meds hld: -cont statin pafib: -in sr, cont bb -cont home eliquis
--- NOTE | 2020-03-02 16:02 | ECHO ---
Name: DUPREE, JUNITO Exam:Adult Echocardiogram Study Date: 03/02/2020 11:04 AM Age: 80 yrs Reason For Study: SYNCOPE MMode/2D Measurements & Calculations IVSd: 1.1 cm Ao root diam: 3.4 cm LVIDd: 4.5 cm LA dimension: 3.7 cm LVIDs: 3.5 cm LVPWd: 1.6 cm LVPWs: 1.9 cm EDV(Teich): 91.6 ml ESV(Teich): 51.8 ml LVOT diam: 2.3 cm LAV (MOD-bp): 92.0 ml RV S Liban: 10.5 cm/sec Doppler Measurements & Calculations MV E max liban: 66.6 cm/sec Ao V2 max: 134.6 cm/sec MV A max liban: 82.9 cm/sec Ao max P.3 mmHg MV E/A: 0.80 AI P1/2t: 385.4 msec MV dec time: 0.10 sec TESSIE(V,D): 2.8 cm2 AI max liban: 453.8 cm/sec LV V1 max P.4 mmHg AI max P.4 mmHg LV V1 max: 92.8 cm/sec AI dec slope: 344.8 cm/sec2 MR max liban: 290.7 cm/sec PA V2 max: 81.8 cm/sec MR max P.8 mmHg PA max P.7 mmHg Med Peak E' Liban: 5.0 cm/sec Med E/e': 13.2 Lat Peak E' Liban: 7.1 cm/sec Lat E/e': 9.3 Procedure A complete two-dimensional transthoracic echocardiogram was performed (2D, M-mode, Doppler and color flow Doppler). Left Ventricle The left ventricular size, thickness and function are normal. Ejection Fraction = 55-60%. The left ve ntricular wall motion is normal. Right Ventricle The right ventricle is normal in size and function. Atria Normal left and right atrial size and function. Mitral Valve There is mild mitral regurgitation. Tricuspid Valve No tricuspid regurgitation. There was insufficient TR detected to calculate RV systolic pressure. Aortic Valve No hemodynamically significant valvular aortic stenosis. Moderate aortic regurgitation. Pulmonic Valve There is no pulmonic valvular regurgitation. Great Vessels The aortic root is normal size. Pericardium/Pleura There is no pericardial effusion. Interpretation Summary The left ventricular size, thickness and function are normal The right ventricle is normal in size and function. There is mild mitral regurgitation. Moderate aortic regurgitation. MD Don Gottlieb 03/02/2020 04:02 PM
--- NOTE | 2020-03-02 17:53 | PN ---
Physical Exam: SUBJECTIVE: Patient seen and examined at the bedside. laying in bed, feels weak. bruising noted to her face. her right hand is painful. tells me she uses home oxygen at 2 liters at home continuously. 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 She reports that after she ran her errands she was in the process of unlocking the door when she felt dizzy, felt a sharp left sided chest pain (for a moment) and then lost her balance and fell to the ground. She does not think she lost consciousness but is not certain. She sustained bruises on the right side of the face. Period Temp Pulse Resp BP Sys/Bocanegra Pulse Ox Last 24 Hr 97.8 F-98.8 F 62-106 18-20 125-153/62-103 96-99 GENERAL: awake, alert, and fully oriented, in no acute distress. HEAD: faint contusion at the frontal scalp EYES: Pupils equal, round and reactive to light, extraocular movements intact, sclera anicteric, conjunctiva clear. No lid lag. EARS, NOSE, THROAT: Ears normal, nares patent, oropharynx clear without exudates. Moist mucous membranes. NECK: Normal range of motion, supple without lymphadenopathy, JVD, or masses. LUNGS: Breath sounds equal, mild wheezing anteriorly HEART: irregular ABDOMEN: Soft, nontender, not distended, normoactive bowel sounds MUSCULOSKELETAL: Normal range of motion at all joints. No bony deformities or tenderness. No CVA tenderness. UPPER EXTREMITIES: right hand mild edema LOWER EXTREMITIES:No peripheral edema. NEUROLOGICAL: Normal speech. Gait not checked. PSYCHIATRIC: Cooperative. SKIN: hematoma at the inferior aspect of the right eye, at the right side of the chin, and dried blood from the lower lip where there is a small avulsion. Laboratory Results - last 24 hr 03/01/20 20:58 Troponin I < 0.02 Generic Name Dose Route Start Last Admin Trade Name Freq PRN Reason Stop Dose Admin Acetaminophen 650 mg 03/01/20 20:06 03/02/20 06:01 Tylenol - PO 650 mg Q4H PRN Administration PAIN LEVEL 1-5 Acetaminophen 1,000 mg 03/01/20 20:06 03/01/20 21:40 Ofirmev Injection - IVPB 03/03/20 20:05 1,000 mg Q6H PRN Administration pain 8-10 Apixaban 5 mg 03/02/20 22:00 Eliquis - PO BID NICOLE Ascorbic Acid 500 mg 03/02/20 10:00 03/02/20 09:28 Vitamin C - PO 500 mg DAILY NICOLE Administration Budesonide/Formoterol Fumarate 2 puff 03/01/20 22:00 03/02/20 12:19 Symbicort 80/4.5mcg - IH 2 puff BID NICOLE Administration Calcium Carbonate/Cholecalciferol 1 tab 03/01/20 22:00 03/02/20 09:28 Os-Rob 500+D - PO 1 tab BID NICOLE Administration Escitalopram Oxalate 20 mg 03/02/20 10:00 03/02/20 09:30 Lexapro - PO 20 mg DAILY NICOLE Administration Ferrous Sulfate 325 mg 03/02/20 10:00 03/02/20 09:28 Feosol - PO 325 mg DAILY NICOLE Administration Levothyroxine Sodium 50 mcg 03/02/20 07:00 03/02/20 06:01 Synthroid - PO 50 mcg DAILY@0700 NICOLE Administration Losartan Potassium 50 mg 03/02/20 10:00 03/02/20 09:29 Cozaar - PO 50 mg DAILY NICOLE Administration Metoprolol Succinate 50 mg 03/02/20 10:00 03/02/20 09:28 Toprol Xl - PO 50 mg DAILY NICOLE Administration Pantoprazole Sodium 40 mg 03/02/20 10:00 03/02/20 09:28 Protonix - PO 40 mg DAILY NICOLE Administration Pramipexole Dihydrochloride 0.25 mg 03/01/20 22:00 03/02/20 09:29 Mirapex - PO 0.25 mg BID NICOLE Administration Pregabalin 150 mg 03/01/20 22:00 03/02/20 09:28 Lyrica - PO 150 mg BID NICOLE Administration Rosuvastatin Calcium 40 mg 03/02/20 22:00 Crestor - PO [facility] ASSESSMENT/PLAN: Problem List - Problems (1) Head injury Assessment/Plan: head ct negative for acute process. patient on eliquis. will repeat head ct in am. Code(s): S09.90XA - UNSPECIFIED INJURY OF HEAD, INITIAL ENCOUNTER (2) Syncope and collapse Assessment/Plan: likely mechanical from what she describes. physical therapy ordered echo noted imaging negative for acute fracture chest xray negative spine imaging: severe deg disease/mod deg disease t11-t12, l1-l2 and mod disc diseae l4-l5. cervical spine, no fracture fall precautions Code(s): R55 - SYNCOPE AND COLLAPSE (3) Accidental fall Assessment/Plan: likely mechanical. fall precautions monitor on tele Code(s): W19.XXXA - UNSPECIFIED FALL, INITIAL ENCOUNTER (4) Afib Assessment/Plan: on toprol and eliquis Code(s): I48.91 - UNSPECIFIED ATRIAL FIBRILLATION Qualifiers: Atrial fibrillation type: chronic (5) Anemia Assessment/Plan: daily labs Code(s): D64.9 - ANEMIA, UNSPECIFIED (6) Asthma Code(s): J45.909 - UNSPECIFIED ASTHMA, UNCOMPLICATED (7) Atrial fibrillation Code(s): I48.91 - UNSPECIFIED ATRIAL FIBRILLATION (8) COPD (chronic obstructive pulmonary disease) Code(s): J44.9 - CHRONIC OBSTRUCTIVE PULMONARY DISEASE, UNSPECIFIED (9) Fall Code(s): W19.XXXA - UNSPECIFIED FALL, INITIAL ENCOUNTER (10) HLD (hyperlipidemia) Assessment/Plan: continue home meds Code(s): E78.5 - HYPERLIPIDEMIA, UNSPECIFIED (11) Hypothyroid Assessment/Plan: continue home meds. tsh wnl. on synthroid. Code(s): E03.9 - HYPOTHYROIDISM, UNSPECIFIED Visit type - Emergency Visit Emergency Visit: Yes ED Registration Date: 03/01/20 Care time: The patient presented to the Emergency Department on the above date and was hospitalized for further evaluation of their emergent condition. - New Patient This patient is new to me today: Yes Date on this admission: 03/02/20 - Critical Care Critical Care patient: No - Discharge Referral Referred to [facility] Med P.C.: No
[2020-03-02] MEDS ORDERED: MAGNESIUM OXIDE 400 MG TABLET (FP) PO ONE (18:14)
[2020-03-02] MEDS: ROSUVASTATIN CA 20 MG TABLET (FP) PO SCH (21:49)
[2020-03-02] MEDS: APIXABAN 5 MG TABLET PO SCH (21:49)
--- NOTE | 2020-03-03 05:44 | PN ---
Progress Note, Physician Chief Complaint: c/o SOB today no CP, no palps, no dizziness TELE: Sinus, sinus tach (mild), rare PVCs History of Present Illness: PAF COPD Fall Possible cardiogenic syncope - Current Medication List Current Medications: Active Medications Acetaminophen (Tylenol -) 650 mg PO Q4H PRN PRN Reason: PAIN LEVEL 1-5 Last Admin: 03/02/20 06:01 Dose: 650 mg Documented by: Acetaminophen (Ofirmev Injection -) 1,000 mg IVPB Q6H PRN PRN Reason: pain 8-10 Stop: 03/03/20 20:05 Last Admin: 03/01/20 21:40 Dose: 1,000 mg Documented by: Apixaban (Eliquis -) 5 mg PO BID [facility] Last Admin: 03/02/20 21:49 Dose: 5 mg Documented by: Ascorbic Acid (Vitamin C -) 500 mg PO DAILY [facility] Last Admin: 03/02/20 09:28 Dose: 500 mg Documented by: Budesonide/Formoterol Fumarate (Symbicort 80/4.5mcg -) 2 puff IH BID [facility] Last Admin: 03/02/20 21:50 Dose: 2 puff Documented by: Calcium Carbonate/Cholecalciferol (Os-Rob 500+D -) 1 tab PO BID [facility] Last Admin: 03/02/20 21:49 Dose: 1 tab Documented by: Escitalopram Oxalate (Lexapro -) 20 mg PO DAILY [facility] Last Admin: 03/02/20 09:30 Dose: 20 mg Documented by: Ferrous Sulfate (Feosol -) 325 mg PO DAILY [facility] Last Admin: 03/02/20 09:28 Dose: 325 mg Documented by: Levothyroxine Sodium (Synthroid -) 50 mcg PO DAILY@0700 [facility] Last Admin: 03/02/20 06:01 Dose: 50 mcg Documented by: Losartan Potassium (Cozaar -) 50 mg PO DAILY [facility] Last Admin: 03/02/20 09:29 Dose: 50 mg Documented by: Metoprolol Succinate (Toprol Xl -) 50 mg PO DAILY [facility] Last Admin: 03/02/20 09:28 Dose: 50 mg Documented by: Pantoprazole Sodium (Protonix -) 40 mg PO DAILY [facility] Last Admin: 03/02/20 09:28 Dose: 40 mg Documented by: Pramipexole Dihydrochloride (Mirapex -) 0.25 mg PO BID [facility] Last Admin: 03/02/20 21:49 Dose: 0.25 mg Documented by: Pregabalin (Lyrica -) 150 mg PO BID [facility] Last Admin: 03/02/20 21:49 Dose: 150 mg Documented by: Rosuvastatin Calcium (Crestor -) 40 mg PO HS [facility] Last Admin: 03/02/20 21:49 Dose: 40 mg Documented by: - Objective Vital Signs: Vital Signs Temperature 98.4 F 03/03/20 02:00 Pulse Rate 106 H 03/03/20 02:00 Respiratory Rate 03/03/20 02:00 Blood Pressure 148/85 03/03/20 02:00 O2 Sat by Pulse Oximetry (%) 100 03/02/20 21:00 Constitutional: Yes: No Distress Eyes: Yes: Conjunctiva Clear Cardiovascular: Yes: Regular Rate and Rhythm Respiratory: Yes: Wheezes Gastrointestinal: Yes: Soft (nt) Edema: No Neurological: Yes: Alert, Oriented Labs: CBC, BMP 03/01/20 13:10 03/01/20 13:10 INR, PTT INR 1.64 (0.83-1.09) H 03/01/20 13:10 Laboratory Tests 03/01/20 03/01/20 03/01/20 13:10 13:10 16:50 WBC 5.5 Hgb 11.3 Plt Count 162 Sodium 141 Potassium 4.2 Creatinine 0.6 Troponin I < 0.02 COVID-19 ([facility]) Pending 03/01/20 03/02/20 20:58 18:45 WBC Hgb Plt Count Sodium Potassium Creatinine Troponin I < 0.02 < 0.02 COVID-19 ([facility]) - ....Imaging EKG: Image Reviewed Assessment/Plan a/p: 80 f hx htn, hld, copd, afib here s/p fall. fall: -details unclear, possibly syncope but mechanical also likely -no signs chf, acs, arrhythmia -check ortho vitals, monitor on tele -consider PT eval -Echo with normal LVEF and moderate AR, to be followed but does not explain presentation htn: -cont home meds hld: -cont statin pafib: -in sr, cont bb -cont home eliquis
[2020-03-03] MEDS: LEVOTHYROXINE NA 50 MCG TABLET (FP) PO SCH (06:44)
[2020-03-03] MEDS ORDERED: SODIUM CHLORIDE NASAL SPRAY 44 ML BOTTLE NS ONE (09:09)
[2020-03-03] MEDS ORDERED: methylPREDNISolone NA SUCC 40 MG/1 ML VIAL IVPUSH ONE (09:09)
[2020-03-03] MEDS ORDERED: ESCITALOPRAM OXALATE 10 MG TABLET ONE (09:23)
[2020-03-03] MEDS: CALCIUM 500MG/VIT-D 200 UNITS COMBO TABLET (FP) PO SCH ×2 (10:50→21:41)
[2020-03-03] MEDS: PREGABALIN 75 MG CAPSULE PO SCH ×2 (10:50→21:41)
[2020-03-03] MEDS: FERROUS SO4 325 MG TABLET (FP) PO SCH (10:50)
[2020-03-03] MEDS: ASCORBIC ACID 500 MG TABLET (FP) PO SCH (10:51)
[2020-03-03] MEDS: APIXABAN 5 MG TABLET PO SCH ×2 (10:51→21:41)
[2020-03-03] MEDS: PANTOPRAZOLE 40 MG TABLET PO SCH (10:51)
[2020-03-03] MEDS: LOSARTAN POTASSIUM 50 MG TABLET (FP) PO SCH (10:52)
[2020-03-03] MEDS: PRAMIPEXOLE DIHYDROCHLORIDE 0.25 MG TABLET PO SCH ×2 (10:52→21:41)
[2020-03-03] MEDS: ESCITALOPRAM OXALATE 20 MG TABLET PO SCH (10:53)
[2020-03-03] MEDS: BUDESONIDE/FORMETEROL FUMARATE 80/4.5 mcg INHALER IH SCH ×2 (10:56→21:41)
[2020-03-03] MEDS ORDERED: PT OWN MED DRAWER 7, Y5N ONE ×2 (12:22→21:36)
[2020-03-03 13:11] LABS: BASO % 0.3 % (0-2.0); EOS % 1.3 % (0-4.5); HEMATOCRIT 35.5 % (32.4-45.2); HEMOGLOBIN 11.8 GM/dL (10.7-15.3); LYMPH % 18.3 % (8-40); MCH 31.3 pg (25.7-33.7); MCHC 33.2 g/dl (32.0-36.0); MEAN CELL VOLUME 94.2 fl (80-96); MEAN PLT VOLUME 8.7 fl (7.5-11.1); MONO % 3.3 % (3.8-10.2); NEUT % 76.8 % (42.8-82.8); PLATELET COUNT 147 K/MM3 (134-434); RBC 3.77 M/mm3 (3.60-5.2); RDW 14.2 % (11.6-15.6)
[2020-03-03 13:43] LABS: ALBUMIN 3.3 g/dl (3.4-5.0); BILIRUBIN,TOTAL 0.4 mg/dL (0.2-1); BLOOD UREA NITROGEN 14.3 mg/dL (7-18); CALCIUM 9.1 mg/dL (8.5-10.1); CREATININE 0.7 mg/dL (0.55-1.3); POTASSIUM 4.1 mmol/L (3.5-5.1); TOT PROT 6.4 g/dl (6.4-8.2)
[2020-03-03] MEDS ORDERED: FUROSEMIDE 40 MG/4 ML INJECTABLE VIAL IVPUSH ONE (14:21)
[2020-03-03] MEDS: ACETAMINOPHEN 325 MG TABLET (FP) PO PRN (14:56)
[2020-03-03 15:32] LABS: MAGNESIUM 1.9 mg/dL (1.8-2.4)
--- NOTE | 2020-03-03 16:21 | PN ---
Physical Exam: SUBJECTIVE: Patient seen and examined. denies any pain. 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 She reports that after she ran her errands she was in the process of unlocking the door when she felt dizzy, felt a sharp left sided chest pain (for a moment) and then lost her balance and fell to the ground. She does not think she lost consciousness but is not certain. She sustained bruises on the right side of the face. tele: frequent pvcs Vital Signs Period Temp Pulse Resp BP Sys/Bocanegra Pulse Ox Last 24 Hr 98 F-98.4 F 75-106 18-20 130-148/63-95 99-100 GENERAL: awake, alert, and fully oriented, in no acute distress. HEAD: faint contusion at the frontal scalp EYES: Pupils equal, round and reactive to light, extraocular movements intact, sclera anicteric, conjunctiva clear. No lid lag. EARS, NOSE, THROAT: Ears normal, nares patent, oropharynx clear without exudates. Moist mucous membranes. NECK: Normal range of motion, supple without lymphadenopathy, JVD, or masses. LUNGS: Breath sounds equal, wheezing anteriorly/posterioly. given 40mg solumedrol. 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 ABDOMEN: Soft, nontender, not distended, normoactive bowel sounds MUSCULOSKELETAL: Normal range of motion at all joints. No bony deformities or tenderness. No CVA tenderness. UPPER EXTREMITIES: right hand mild edema LOWER EXTREMITIES:No peripheral edema. NEUROLOGICAL: Normal speech. Gait not checked. PSYCHIATRIC: Cooperative. SKIN: hematoma at the inferior aspect of the right eye, at the right side of the chin, and dried blood from the lower lip where there is a small avulsion. Laboratory Results - last 24 hr 03/01/20 03/02/20 03/03/20 16:50 18:45 12:52 WBC 6.0 RBC 3.77 Hgb 11.8 Hct 35.5 MCV 94.2 MCH 31.3 MCHC 33.2 RDW 14.2 Plt Count 147 MPV 8.7 Absolute Neuts (auto) 4.6 Neutrophils % 76.8 D Lymphocytes % 18.3 D Monocytes % 3.3 L Eosinophils % 1.3 Basophils % 0.3 Nucleated RBC % 0 Sodium Potassium Chloride Carbon Dioxide Anion Gap BUN Creatinine Est GFR (CKD-EPI)AfAm Est GFR (CKD-EPI)NonAf Random Glucose Calcium Magnesium Total Bilirubin AST ALT Alkaline Phosphatase Troponin I < 0.02 Total Protein Albumin COVID-19 ([facility]) TNP 03/03/20 12:52 WBC RBC Hgb Hct MCV MCH MCHC RDW Plt Count MPV Absolute Neuts (auto) Neutrophils % Lymphocytes % Monocytes % Eosinophils % Basophils % Nucleated RBC % Sodium 139 Potassium 4.1 Chloride 103 Carbon Dioxide 29 Anion Gap 7 L BUN 14.3 Creatinine 0.7 Est GFR (CKD-EPI)AfAm 94.18 Est GFR (CKD-EPI)NonAf 81.26 Random Glucose 190 H Calcium 9.1 Magnesium 1.9 Total Bilirubin 0.4 AST 16 ALT 22 Alkaline Phosphatase 54 Troponin I Total Protein 6.4 Albumin 3.3 L COVID-19 ([facility]) Active Medications Generic Name Dose Route Start Last Admin Trade Name Freq PRN Reason Stop Dose Admin Acetaminophen 650 mg 03/01/20 20:06 03/03/20 14:56 Tylenol - PO 650 mg Q4H PRN Administration PAIN LEVEL 1-5 Acetaminophen 1,000 mg 03/01/20 20:06 03/01/20 21:40 Ofirmev Injection - IVPB 03/03/20 20:05 1,000 mg Q6H PRN Administration pain 8-10 Apixaban 5 mg 03/02/20 22:00 03/03/20 10:51 Eliquis - PO 5 mg BID NICOLE Administration Ascorbic Acid 500 mg 03/02/20 10:00 03/03/20 10:51 Vitamin C - PO 500 mg DAILY NICOLE Administration Budesonide/Formoterol Fumarate 2 puff 03/01/20 22:00 03/03/20 10:56 Symbicort 80/4.5mcg - IH 2 puff BID NICOLE Administration Calcium Carbonate/Cholecalciferol 1 tab 03/01/20 22:00 03/03/20 10:50 Os-Rob 500+D - PO 1 tab BID NICOLE Administration Escitalopram Oxalate 20 mg 03/02/20 10:00 03/03/20 10:53 Lexapro - PO 20 mg DAILY NICOLE Administration Ferrous Sulfate 325 mg 03/02/20 10:00 03/03/20 10:50 Feosol - PO 325 mg DAILY NICOLE Administration Levothyroxine Sodium 50 mcg 03/02/20 07:00 03/03/20 06:44 Synthroid - PO 50 mcg DAILY@0700 NICOLE Administration Losartan Potassium 50 mg 03/02/20 10:00 03/03/20 10:52 Cozaar - PO 50 mg DAILY [facility]ICOLE Administration Metoprolol Succinate 50 mg 03/02/20 10:00 03/03/20 10:51 Toprol Xl - PO 50 mg DAILY NICOLE Administration Pantoprazole Sodium 40 mg 03/02/20 10:00 03/03/20 10:51 Protonix - PO 40 mg DAILY [facility]ICOLE Administration Pramipexole Dihydrochloride 0.25 mg 03/01/20 22:00 03/03/20 10:52 Mirapex - PO 0.25 mg BID [facility]LE Administration Pregabalin 150 mg 03/01/20 22:00 03/03/20 10:50 Lyrica - PO 150 mg BID N[facility]LE Administration Rosuvastatin Calcium 40 mg 03/02/20 22:00 03/02/20 21:49 Crestor - PO 40 mg HS NICOLE Administration ASSESSMENT/PLAN: Problem List - Problems (1) Head injury Assessment/Plan: head ct negative for acute process x 2. patient on eliquis. Code(s): S09.90XA - UNSPECIFIED INJURY OF HEAD, INITIAL ENCOUNTER (2) Syncope and collapse Assessment/Plan: likely mechanical from what she describes. physical therapy ordered echo noted imaging negative for acute fracture chest xray negative spine imaging: severe deg disease/mod deg disease t11-t12, l1-l2 and mod disc diseae l4-l5. cervical spine, no fracture fall precautions Code(s): R55 - SYNCOPE AND COLLAPSE (3) Accidental fall Assessment/Plan: likely mechanical. fall precautions monitor on tele Code(s): W19.XXXA - UNSPECIFIED FALL, INITIAL ENCOUNTER (4) Afib Assessment/Plan: on toprol and eliquis Code(s): I48.91 - UNSPECIFIED ATRIAL FIBRILLATION Qualifiers: Atrial fibrillation type: chronic (5) Anemia Assessment/Plan: daily labs Code(s): D64.9 - ANEMIA, UNSPECIFIED (6) Asthma Code(s): J45.909 - UNSPECIFIED ASTHMA, UNCOMPLICATED (7) Atrial fibrillation Code(s): I48.91 - UNSPECIFIED ATRIAL FIBRILLATION (8) COPD (chronic obstructive pulmonary disease) Code(s): J44.9 - CHRONIC OBSTRUCTIVE PULMONARY DISEASE, UNSPECIFIED (9) Fall Code(s): W19.XXXA - UNSPECIFIED FALL, INITIAL ENCOUNTER (10) HLD (hyperlipidemia) Assessment/Plan: continue home meds Code(s): E78.5 - HYPERLIPIDEMIA, UNSPECIFIED (11) Hypothyroid Assessment/Plan: continue home meds. tsh wnl. on synthroid. Code(s): E03.9 - HYPOTHYROIDISM, UNSPECIFIED (12) COPD exacerbation Assessment/Plan: mild exacerbatin, + wheezing given solumdedol 40mg x 1 dose start on oral prednisone tomorrow. Code(s): J44.1 - CHRONIC OBSTRUCTIVE PULMONARY DISEASE W (ACUTE) EXACERBATION (13) DVT prophylaxis Assessment/Plan: on eliquis Code(s): Z29.9 - ENCOUNTER FOR PROPHYLACTIC MEASURES, UNSPECIFIED Visit type - Emergency Visit Emergency Visit: Yes ED Registration Date: 03/01/20 Care time: The patient presented to the Emergency Department on the above date and was hospitalized for further evaluation of their emergent condition. - New Patient This patient is new to me today: No - Critical Care Critical Care patient: No - Discharge Referral Referred to [facility] No
[2020-03-03] MEDS: amLODIPine BESYLATE 5 MG TABLET (FP) PO ONE ×2 (19:18→19:31)
[2020-03-03] MEDS: ROSUVASTATIN CA 20 MG TABLET (FP) PO SCH (21:40)
[2020-03-04] MEDS: ACETAMINOPHEN 325 MG TABLET (FP) PO PRN (04:20)
[2020-03-04] MEDS: LEVOTHYROXINE NA 50 MCG TABLET (FP) PO SCH (06:55)
--- NOTE | 2020-03-04 07:02 | PN ---
Progress Note, Physician Chief Complaint: fall History of Present Illness: pt feels well. denies sob, chest pressure/heaviness/pain, leg swelling, dizziness - Current Medication List Current Medications: Active Medications Acetaminophen (Tylenol -) 650 mg PO Q4H PRN PRN Reason: PAIN LEVEL 1-5 Last Admin: 03/04/20 04:20 Dose: 650 mg Documented by: Apixaban (Eliquis -) 5 mg PO BID [facility] Last Admin: 03/03/20 21:41 Dose: 5 mg Documented by: Ascorbic Acid (Vitamin C -) 500 mg PO DAILY [facility] Last Admin: 03/03/20 10:51 Dose: 500 mg Documented by: Budesonide/Formoterol Fumarate (Symbicort 80/4.5mcg -) 2 puff IH BID [facility] Last Admin: 03/03/20 21:41 Dose: 2 puff Documented by: Calcium Carbonate/Cholecalciferol (Os-Rob 500+D -) 1 tab PO BID [facility] Last Admin: 03/03/20 21:41 Dose: 1 tab Documented by: Escitalopram Oxalate (Lexapro -) 20 mg PO DAILY [facility] Last Admin: 03/03/20 10:53 Dose: 20 mg Documented by: Ferrous Sulfate (Feosol -) 325 mg PO DAILY [facility] Last Admin: 03/03/20 10:50 Dose: 325 mg Documented by: Levothyroxine Sodium (Synthroid -) 50 mcg PO DAILY@0700 [facility] Last Admin: 03/04/20 06:55 Dose: 50 mcg Documented by: Losartan Potassium (Cozaar -) 50 mg PO DAILY [facility] Last Admin: 03/03/20 10:52 Dose: 50 mg Documented by: Metoprolol Succinate (Toprol Xl -) 50 mg PO DAILY [facility] Last Admin: 03/03/20 10:51 Dose: 50 mg Documented by: Pantoprazole Sodium (Protonix -) 40 mg PO DAILY [facility] Last Admin: 03/03/20 10:51 Dose: 40 mg Documented by: Pramipexole Dihydrochloride (Mirapex -) 0.25 mg PO BID [facility] Last Admin: 03/03/20 21:41 Dose: 0.25 mg Documented by: Prednisone (Deltasone -) 40 mg PO DAILY [facility] Pregabalin (Lyrica -) 150 mg PO BID [facility] Last Admin: 06/26/20 21:41 Dose: 150 mg Documented by: Rosuvastatin Calcium (Crestor -) 40 mg PO HS [facility] Last Admin: 03/03/20 21:40 Dose: 40 mg Documented by: - Objective Vital Signs: Vital Signs Temperature 98.6 F 03/04/20 06:00 Pulse Rate 69 03/04/20 06:00 Respiratory Rate 03/04/20 06:00 Blood Pressure 122/62 03/04/20 06:00 O2 Sat by Pulse Oximetry (%) 97 03/03/20 21:00 Constitutional: Yes: Well Nourished, No Distress, Calm Cardiovascular: Yes: Regular Rate and Rhythm, S1, S2. No: JVD, Gallop, Murmur Respiratory: Yes: Regular, CTA Bilaterally. No: Accessory Muscle Use Extremities: No: Cold Edema: No Neurological: Yes: Alert, Oriented Psychiatric: No: Agitated Labs: CBC, BMP 03/03/20 12:52 03/03/20 12:52 INR, PTT INR 1.64 (0.83-1.09) H 03/01/20 13:10 Assessment/Plan tele: NSR a/p: 80 f hx htn, hld, copd, afib here s/p fall. fall: -details unclear, possibly syncope but mechanical also likely -no signs acs, arrhythmia -no significant orthostatic hypotension here -consider PT eval -Echo with normal LVEF and moderate AR, no signs of CHF-- to be followed routi saul as outpatient but does not explain presentation htn: -bp stable -cont home meds hld: -cont statin pafib: -in sr, cont bb -cont home eliquis
[2020-03-04] MEDS ORDERED: ESCITALOPRAM OXALATE 10 MG TABLET ONE (09:46)
[2020-03-04] MEDS ORDERED: PT OWN MED DRAWER 7, Y5N ONE ×2 (09:49→12:41)
[2020-03-04] MEDS ORDERED: predniSONE 20 MG TABLET (UD) PO SCH (10:00)
[2020-03-04] MEDS: FERROUS SO4 325 MG TABLET (FP) PO SCH (10:06)
[2020-03-04] MEDS: LOSARTAN POTASSIUM 50 MG TABLET (FP) PO SCH (10:06)
[2020-03-04] MEDS: APIXABAN 5 MG TABLET PO SCH (10:06)
[2020-03-04] MEDS: ESCITALOPRAM OXALATE 20 MG TABLET PO SCH (10:07)
[2020-03-04] MEDS: PRAMIPEXOLE DIHYDROCHLORIDE 0.25 MG TABLET PO SCH (10:07)
[2020-03-04] MEDS: PREGABALIN 75 MG CAPSULE PO SCH (10:07)
[2020-03-04] MEDS: BUDESONIDE/FORMETEROL FUMARATE 80/4.5 mcg INHALER IH SCH (10:08)
[2020-03-04] MEDS: ASCORBIC ACID 500 MG TABLET (FP) PO SCH (10:08)
[2020-03-04] MEDS: CALCIUM 500MG/VIT-D 200 UNITS COMBO TABLET (FP) PO SCH (10:08)
[2020-03-04] MEDS: PANTOPRAZOLE 40 MG TABLET PO SCH (10:08)
--- NOTE | 2020-03-04 10:45 | CON.PULM ---
Consult Consult Specialty:: PULMONARY Referred by:: PMD Reason for Consultation:: WHEEZES - History of Present Illness Chief Complaint: PATIENT STATES BREATHING IS MUCH IMPROVED THIS AM History of Present Illness: The patient is an 80 year old female, with a significant PMH of HTN, HLD, COPD, CAD, Afib (on eliquis), hypothyroidism, breast cancer (s/p surgery, chemo and radiation 10 years ago), s/p bilateral total knee replacements and hip replacement, and recent right ankle sprain (4 weeks ago) who presents to the ED for evaluation of fall. Patient was carrying groceries when she states that her foot got caught causing her to trip and fall. She reports hitting her face, denies LOC, but admits to not being able to recall the entire event. Patient notes she fell onto her knees, hands, and now complains of low back pain, hand pain, bilateral knee pain, cervical pain, facial pain. Denies any chest pain, SOB, lightheadedness, dizziness, or palpitations. 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, TIA Cardio/Vascular: Yes: AFIB, CAD, HTN, Hyperlipdemia Pulmonary: Yes: Asthma, COPD Gastrointestinal: Yes: GERD Endocrine: Yes: Hypothyroidism - Past Surgical History Past Surgical History: Yes: Joint Replacement (left hip, TKR right), Mastectomy (Left) - Alcohol/Substance Use Hx Alcohol Use: No - Smoking History Smoking history: Never smoked Have you smoked in the past 12 months: No Aproximately how many cigarettes per day: 0 - Social History History of Recent Travel: No Home Medications - Allergies Allergies/Adverse Reactions: Allergies Allergy/AdvReac Type Severity Reaction Status Date / Time No Known Drug Allergies Allergy Verified 03/01/20 12:36 - Home Medications Home Medications: Ambulatory Orders Apixaban [Eliquis] 5 mg PO BID #60 tablet 11/08/19 Ascorbate Calcium [Vitamin C] 500 mg PO DAILY #30 tablet 11/08/19 Calcium Carbonate/Vitamin D3 [Calcium 600+D Softgel] 1 each PO DAILY #30 capsule 11/08/19 Escitalopram Oxalate [Lexapro -] 20 mg PO DAILY #30 tablet 11/08/19 Ferrous Sulfate [Feosol] 325 mg PO DAILY #30 ud 11/08/19 Levothyroxine [Synthroid -] 50 mcg PO DAILY #30 tablet 11/08/19 Losartan Potassium [Cozaar -] 50 mg PO DAILY #30 tablet 11/08/19 Metoprolol Succinate [Toprol XL -] 50 mg PO DAILY #30 tab.sr.24h 11/08/19 Pantoprazole Sodium [Protonix -] 40 mg PO DAILY #30 tablet.ec 11/08/19 Pramipexole Dihydrochloride [Mirapex -] 0.25 mg PO BID #60 tablet 11/08/19 Pregabalin [Lyrica -] 150 mg PO BID #120 cap MDD 300mg 11/08/19 Budesonide/Formeterol Fumarate [SYMBICORT 80/4.5mcg -] 1 puff IH BID 03/01/20 Rosuvastatin [Crestor -] 40 mg PO HS 03/01/20 Family Medical History Family History: Unremarkable Review of Systems - Review of Systems Constitutional: denies: Fever Eyes: denies: Blurred Vision HENT: denies: Difficult Swallowing Neck: denies: Decreased ROM Cardiovascular: denies: Chest Pain Respiratory: denies: Cough, Hemoptysis, Wheezing Gastrointestinal: denies: Abdominal Pain Genitourinary: denies: Burning Physical Exam Vital Sings: Vital Signs Temperature 98.6 F 03/04/20 06:00 Pulse Rate 69 03/04/20 06:00 Respiratory Rate 20 03/04/20 06:00 Blood Pressure 122/62 03/04/20 06:00 O2 Sat by Pulse Oximetry (%) 95 03/04/20 09:00 Constitutional: Yes: Calm Eyes: Yes: EOM Intact HENT: Yes: Normocephalic Neck: Yes: Trachea Midline Cardiovascular: Yes: Regular Rate and Rhythm, S1, S2 Respiratory: Yes: CTA Bilaterally. No: Wheezes Gastrointestinal: Yes: Normal Bowel Sounds Edema: LLE: 1+, RLE: 1+ Neurological: Yes: Alert Labs: CBC, BMP 03/03/20 12:52 03/03/20 12:52 Imaging - Results Chest X-ray: Report Reviewed, Image Reviewed EKG: Report Reviewed, Image Reviewed Problem List - Problems (1) DVT prophylaxis Code(s): Z29.9 - ENCOUNTER FOR PROPHYLACTIC MEASURES, UNSPECIFIED (2) Accidental fall Code(s): W19.XXXA - UNSPECIFIED FALL, INITIAL ENCOUNTER (3) Afib Code(s): I48.91 - UNSPECIFIED ATRIAL FIBRILLATION Qualifiers: Atrial fibrillation type: chronic (4) Anemia Code(s): D64.9 - ANEMIA, UNSPECIFIED (5) Breast CA Code(s): C50.919 - MALIGNANT NEOPLASM OF UNSP SITE OF UNSPECIFIED FEMALE BREAST (6) CAD (coronary artery disease) Code(s): I25.10 - ATHSCL HEART DISEASE OF [place] CORONARY ARTERY W/O ANG PCTRS Assessment/Plan ASKED TO CLEAR FOR DISCHARGE YESTERDAY PATIENT HAD WHEEZES PER PMD TODAY LUNGS ARE CLEAR/PATIENT SLATED FOR DISCHARGE CAN FOLLOW OUTPATIENT WITH PFTS WOULD CONTINUE CURRENT TREATMENT PLAN CHECK O2 SAT OFF O2 NO OBJECTION TO CONTINUING TREATMENT AN OUTPATIENT THANK YOU Wolfgang ENCARNACION MD
[2020-03-04 11:38] LABS: BASO % 0.2 % (0-2.0); EOS % 0.3 % (0-4.5); HEMATOCRIT 35.2 % (32.4-45.2); HEMOGLOBIN 11.6 GM/dL (10.7-15.3); LYMPH % 31.8 % (8-40); MCH 31.1 pg (25.7-33.7); MCHC 33.1 g/dl (32.0-36.0); MEAN CELL VOLUME 94.1 fl (80-96); MEAN PLT VOLUME 9.3 fl (7.5-11.1); MONO % 8.6 % (3.8-10.2); NEUT % 59.1 % (42.8-82.8); PLATELET COUNT 159 K/MM3 (134-434); RBC 3.74 M/mm3 (3.60-5.2); RDW 14.3 % (11.6-15.6); WHITE BLOOD COUNT 7.1 K/mm3 (4.0-10.0)
[2020-03-04 12:07] LABS: ALBUMIN 3.3 g/dl (3.4-5.0); BILIRUBIN,TOTAL 0.6 mg/dL (0.2-1); BLOOD UREA NITROGEN 19.8 mg/dL (7-18); CALCIUM 9.1 mg/dL (8.5-10.1); CREATININE 0.8 mg/dL (0.55-1.3); MAGNESIUM 1.8 mg/dL (1.8-2.4); POTASSIUM 3.3 mmol/L (3.5-5.1); TOT PROT 6.5 g/dl (6.4-8.2)
[2020-03-04] MEDS ORDERED: POTASSIUM CHLORIDE TABS 20 MEQ TABLET.ER (FP) PO ONE (12:10)
--- NOTE | 2020-03-04 12:50 | DS ---
Physical Exam: SUBJECTIVE: Patient seen and examined at the bedside. feels well, denies any lightheadness. wants to go home. she is home oxygen dependent at 3 liters. 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 She reports that after she ran her errands she was in the process of unlocking the door when she felt dizzy, felt a sharp left sided chest pain (for a moment) and then lost her balance and fell to the ground. She does not think she lost consciousness but is not certain. She sustained bruises on the right side of the face. Patient monitored on tele during hospital stay. Cause of syncope likely mechanical from what she describes. No signs of ACS or arrhythmia. Monitor showed frequent PVCs and she was given one dose of IV lasix by cardiology. No significant orthostatic hypotension. She was able to ambulate with PT > 150 feet. Echo showed no signs of CHF. 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 tele: frequent pvcs Period Temp Pulse Resp BP Sys/Bocanegra Pulse Ox Last 24 Hr 98 F-98.6 F 69-86 18-20 121-130/62-76 95-97 PHYSICAL EXAM GENERAL: awake, alert, and fully oriented, in no acute distress. HEAD: faint contusion at the frontal scalp EYES: Pupils equal, round and reactive to light, extraocular movements intact, sclera anicteric, conjunctiva clear. No lid lag. EARS, NOSE, THROAT: Ears normal, nares patent, oropharynx clear without exudates. Moist mucous membranes. NECK: Normal range of motion, supple without lymphadenopathy, JVD, or masses. LUNGS: Breath sounds equal, wheezing anteriorly/posterioly. given 40mg solumedrol. start on taper, orally HEART: irregular, frequent PVCs on threat monitoring analyst. ABDOMEN: Soft, nontender, not distended, normoactive bowel sounds MUSCULOSKELETAL: Normal range of motion at all joints. No bony deformities or tenderness. No CVA tenderness. UPPER EXTREMITIES: right hand mild edema LOWER EXTREMITIES:No peripheral edema. NEUROLOGICAL: Normal speech. Gait not checked. PSYCHIATRIC: Cooperative. SKIN: hematoma at the inferior aspect of the right eye, at the right side of the chin, and dried blood from the lower lip where there is a small avulsion. facial bruising improving. LABS Laboratory Results - last 24 hr 03/01/20 03/03/20 03/03/20 16:50 12:52 12:52 WBC 6.0 RBC 3.77 Hgb 11.8 Hct 35.5 MCV 94.2 MCH 31.3 MCHC 33.2 RDW 14.2 Plt Count 147 MPV 8.7 Absolute Neuts (auto) 4.6 Neutrophils % 76.8 D Lymphocytes % 18.3 D Monocytes % 3.3 L Eosinophils % 1.3 Basophils % 0.3 Nucleated RBC % 0 Sodium 139 Potassium 4.1 Chloride 103 Carbon Dioxide 29 Anion Gap 7 L BUN 14.3 Creatinine 0.7 Est GFR (CKD-EPI)AfAm 94.18 Est GFR (CKD-EPI)NonAf 81.26 Random Glucose 190 H Calcium 9.1 Magnesium 1.9 Total Bilirubin 0.4 AST 16 ALT 22 Alkaline Phosphatase 54 Total Protein 6.4 Albumin 3.3 L COVID-19 (REGGIE) TNP 03/04/20 03/04/20 10:36 10:36 WBC 7.1 RBC 3.74 Hgb 11.6 Hct 35.2 MCV 94.1 MCH 31.1 MCHC 33.1 RDW 14.3 Plt Count 159 MPV 9.3 Absolute Neuts (auto) 4.2 Neutrophils % 59.1 D Lymphocytes % 31.8 D Monocytes % 8.6 D Eosinophils % 0.3 Basophils % 0.2 Nucleated RBC % 0 Sodium 139 Potassium 3.3 L Chloride 101 Carbon Dioxide 31 Anion Gap 7 L BUN 19.8 H Creatinine 0.8 Est GFR (CKD-EPI)AfAm 80.14 Est GFR (CKD-EPI)NonAf 69.14 Random Glucose 117 H Calcium 9.1 Magnesium 1.8 Total Bilirubin 0.6 AST 10 L ALT 19 Alkaline Phosphatase 50 Total Protein 6.5 Albumin 3.3 L COVID-19 (REGGIE) HOSPITAL COURSE: Date of Admission:03/01/20 Date of Discharge: 03/04/20 Minutes to complete discharge: 45 Discharge Summary Problems reviewed: Yes Reason For Visit: SYNCOPE AND COLLAPSE Current Active Problems COPD exacerbation (Acute) DVT prophylaxis (Acute) Head injury (Acute) Syncope and collapse (Acute) Condition: Improved - Instructions Diet, Activity, Other Instructions: Mrs Davies: You were admitted for a fall and all the imaging that we did here shows no fracture. You were seen by the physical therapist and you were able to ambulate without difficulty. We have called in a rolling walker to help you with any ambulation and keep you from any further falls. You were also noted to have some wheezing of your lungs and we have started you on Prednisone. You will complete the prednisone as follows: On 03/05/2020 take Prednisone 20mg ONCE in the morning on 03/06/2020 take Prednisone 20mg ONCE in the morning, - this is your last dose NEXT STEPS: Please follow up with your cardiolgist by calling their office as an outpatient Please follow up with Dr. Sosa, field marketing representative as you may need PFTs. What are PFTs? Pulmonary function tests are test that are consulted to evaluate your lung capacity. Thank you for allowing us to care for you Referrals: Aureliano Henry MD [Primary Care Provider] - Disposition: HOME - Home Medications Comprehensive Discharge Medication List: Ambulatory Orders Apixaban [Eliquis] 5 mg PO BID #60 tablet 11/08/19 Ascorbate Calcium [Vitamin C] 500 mg PO DAILY #30 tablet 11/08/19 Calcium Carbonate/Vitamin D3 [Calcium 600+D Softgel] 1 each PO DAILY #30 capsule 11/08/19 Escitalopram Oxalate [Lexapro -] 20 mg PO DAILY #30 tablet 11/08/19 Ferrous Sulfate [Feosol] 325 mg PO DAILY #30 ud 11/08/19 Levothyroxine [Synthroid -] 50 mcg PO DAILY #30 tablet 11/08/19 Losartan Potassium [Cozaar -] 50 mg PO DAILY #30 tablet 11/08/19 Metoprolol Succinate [Toprol XL -] 50 mg PO DAILY #30 tab.sr.24h 11/08/19 Pantoprazole Sodium [Protonix -] 40 mg PO DAILY #30 tablet.ec 11/08/19 Pramipexole Dihydrochloride [Mirapex -] 0.25 mg PO BID #60 tablet 11/08/19 Pregabalin [Lyrica -] 150 mg PO BID #120 cap MDD 300mg 11/08/19 Budesonide/Formeterol Fumarate [SYMBICORT 80/4.5mcg -] 1 puff IH BID 03/01/20 Rosuvastatin [Crestor -] 40 mg PO HS 03/01/20 Walker [Ultra-Light Rollator] 1 each MC DAILY #1 each 03/04/20 predniSONE [Deltasone -] 20 mg PO DAILY #2 tablet 03/04/20 Problem List - Problems (1) Head injury Assessment/Plan: head ct negative for acute process x 2. patient on eliquis. Code(s): S09.90XA - UNSPECIFIED INJURY OF HEAD, INITIAL ENCOUNTER (2) Syncope and collapse Assessment/Plan: likely mechanical from what she describes. physical therapy followed and patient was able to ambulate without dizziness or lightheadness. echo noted imaging negative for acute fracture chest xray negative spine imaging: severe deg disease/mod deg disease t11-t12, l1-l2 and mod disc di seae l4-l5. cervical spine, no fracture fall precautions Code(s): R55 - SYNCOPE AND COLLAPSE (3) Accidental fall Code(s): W19.XXXA - UNSPECIFIED FALL, INITIAL ENCOUNTER (4) Afib Code(s): I48.91 - UNSPECIFIED ATRIAL FIBRILLATION Qualifiers: Atrial fibrillation type: chronic (5) Anemia Code(s): D64.9 - ANEMIA, UNSPECIFIED (6) Asthma Code(s): J45.909 - UNSPECIFIED ASTHMA, UNCOMPLICATED (7) Atrial fibrillation Code(s): I48.91 - UNSPECIFIED ATRIAL FIBRILLATION (8) COPD (chronic obstructive pulmonary disease) Assessment/Plan: mild exacerbation. prednisone taper. Code(s): J44.9 - CHRONIC OBSTRUCTIVE PULMONARY DISEASE, UNSPECIFIED (9) Fall Code(s): W19.XXXA - UNSPECIFIED FALL, INITIAL ENCOUNTER (10) HLD (hyperlipidemia) Code(s): E78.5 - HYPERLIPIDEMIA, UNSPECIFIED (11) Hypothyroid Code(s): E03.9 - HYPOTHYROIDISM, UNSPECIFIED (12) COPD exacerbation Code(s): J44.1 - CHRONIC OBSTRUCTIVE PULMONARY DISEASE W (ACUTE) EXACERBATION (13) DVT prophylaxis Code(s): Z29.9 - ENCOUNTER FOR PROPHYLACTIC MEASURES, UNSPECIFIED This patient is new to me today: Yes Date on this admission: 03/04/20 Emergency Visit: No Critical Care patient: No - Discharge Referral Referred to [facility] Med P.C.: No
[2020-03-04 15:59] VITALS: BP 133/81; PULSE 74; TEMP 98.7
== END 2020-03-04 18:00 | disposition home or self-care (01) ==
LOC: JER 12:33 → JERBED 15:49 → UNDOADMOB 17:07 → JERBED 17:07 → INTOOBSV 17:07 → J4S 22:58 → JERBED 22:58 → J4S 22:58
PROVIDERS: ADMIT Internal Medicine; ATTEND Nurse Practitioner Family
PROC: 3E023GC Introduction of Other Therapeutic Substance into Muscle, Percutaneous Approach (ICD-10-PCS; principal; 2020-03-01)
PROC: 3E0234Z Introduction of Serum, Toxoid and Vaccine into Muscle, Percutaneous Approach (ICD-10-PCS; 2020-03-01)
PROC: 3E033NZ Introduction of Analgesics, Hypnotics, Sedatives into Peripheral Vein, Percutaneous Approach (ICD-10-PCS; 2020-03-01)
DX: R55 Syncope and collapse (principal); I48.91 Unspecified atrial fibrillation; D64.9 Anemia, unspecified; J44.1 Chronic obstructive pulmonary disease with (acute) exacerbation; E78.5 Hyperlipidemia, unspecified; E03.9 Hypothyroidism, unspecified; Z79.01 Long term (current) use of anticoagulants; Z29.9 Encounter for prophylactic measures, unspecified; Z96.653 Presence of artificial knee joint, bilateral; Z96.642 Presence of left artificial hip joint; Z85.3 Personal history of malignant neoplasm of breast; S93.401A Sprain of unspecified ligament of right ankle, initial encounter; W18.39XA Other fall on same level, initial encounter; Y93.89 Activity, other specified; Y92.009 Unspecified place in unspecified non-institutional (private) residence as the place of occurrence of the external cause; I10 Essential (primary) hypertension; K21.9 Gastro-esophageal reflux disease without esophagitis; I25.10 Atherosclerotic heart disease of native coronary artery without angina pectoris; E66.9 Obesity, unspecified; Z68.37 Body mass index [BMI] 37.0-37.9, adult; G20 Parkinson's disease
CPT/HCPCS: 36415; 70450-TC; 70486-TC; 71045-TC-FY; 72100-TC-FY; 72125-TC; 73130-TC-LT-FY; 73130-TC-RT-FY; 73560-TC-LT-FY; 73560-TC-RT-FY; 80053; 81003; 82550; 83735; 84443; 84484; 85025; 85610; 86850; 86900; 86901; 87086; 90471; 90715; 93005; 93010; 93306-TC; 93971-TC; 96372; 96374; 96375; 96376; 97116-GP; 97161-GP; 99285-25; G0378; J0131; U0003

== ENCOUNTER 2020-06-30 19:00 | Inpatient (IN) | payer OTHER, MEDICARE ==
--- OUTSIDE RECORDS SUMMARY | 2020-06-30 20:29 | XMS ---
:1940 [facility] Care Team Providers Name Role Phone JASBIR VALENCIA Unavailable Unavailable PATRIZIA ESPARZA Unavailable Unavailable Re-disclosure Warning The records that you are about to access may contain information from federally- assisted alcohol or drug abuse programs. If such information is present, then the following federally mandated warning applies: This information has been disclosed to you from records protected by federal confidentiality rules (42 CFR part 2). The federal rules prohibit you from making any further disclosure of this information unless further disclosure is expressly permitted by the written consent of the person to whom it pertains or as otherwise permitted by 42 CFR part 2. A general authorization for the release of medical or other information is NOT sufficient for this purpose. The Federal rules restrict any use of the information to criminally investigate or prosecute any alcohol or drug abuse patient.The records that you are about to access may contain highly sensitive health information, the redisclosure of which is protected by Article 27-F of the [facility] Public Health law. If you continue you may haveaccess to information: Regarding HIV / AIDS; Provided by facilities licensed or operated by the [facility] Office of Mental Health; or Provided by the [facility] Office for People With Developmental Disabilities. If such information is present, then the following [facility] mandated warning applies: This information has been disclosed to you from confidential records which are protected by state law. State law prohibits you from making any further disclosure of this information without the specific written consent of the person to whom it pertains, or as otherwise permitted by law. Any unauthorized further disclosure in violation of state law may result in a fine or senior living sentence or both. A general authorization for the release of medical or other information is NOT sufficient authorization for further disclosure. Encounters Encounter Providers Location Date Indications Data Source(s ) Outpatient Attender: ISAIAS, 10/15/2019 R94.39 [facility] HASANAdmitter: 08:34:00 AM Health [facility] re NOMANSelina, I AM AT HASANReferrer: PATRIZIA ESPARZA R94.39 Outpatient Attender: ISAIAS, 10/15/2019 06:00:00 R94.39 [facility] HASANAdmitter: ISAIAS EST [facility] Care HASANReferrer: Randy ESPARZA poration PATRIZIA R94.39 Outpatient Attender: SHEIKH 10/06/2019 06:00:00 I25.10 [id number] [facility] JASBIR ManciniAdmitter: [facility] [id number] [facility] JASBIR VALENCIA [facility].Referrer: JASBIR VALENCIA I25.10 [id number] Insurance Providers Payer name Policy type Policy ID Covered Covered democrat's Policy P aruna / Coverage democrat ID relationship to Gonzalez Inf ormation type gonzalez [facility] [id number] SP [id number] CARE OPTIONS MEDICARE [id number] SP [id number] N00 [facility] [id number] S [id number] CARE OPTIONS MEDICARE [id number] S [id number] N00 [facility] [id number] SP [id number] [place]NER [id number] SP [id number] BANNER [id number] SP [id number] BANNER [id number] SP [id number] Problems, Conditions, and Diagnoses Code Display Name Description Problem Type Effective Data Sour ce(s) Dates Z79.01 dietetics director (current) FDC Diagnosis 10/15/2019 [facility] gordon use of (CURRENT) USE OF 08:34:00 [facility] EST Care [employer] E03.9 Hypothyroidism, HYPOTHYROIDISM, Diagnosis 10/15/2019 [place] [facility] unspecified UNSPECIFIED 08:34:00 [facility] J44.9 Chronic obstructive CHRONIC Diagnosis 10/15/2019 [facility] gordon pulmonary disease, OBSTRUCTIVE 08:34:00 AM [facility] unspecified PULMONARY DISEASE, EST Care UNSPECIFIED Corporation I50.30 Unspecified UNSPECIFIED Diagnosis 10/15/2019 [place] diastolic DIASTOLIC 08:34:00 AM [facility] (congestive) heart (CONGESTIVE) HEART EST Care failure FAILURE Corporation I11.0 Hypertensive heart HYPERTENSIVE HEART Diagnosis 0 [place] disease with heart DISEASE WITH HEART 08:34:00 AM [facility] failure FAILURE EST Care Corporation 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 10/06/2019 [facility] heart disease of DISEASE OF TETLIN 06:00:00 AM [facility] [place] coronary CORONARY ARTERY EST [facility] artery without W/O ANG PCTRS Corpora tion angina pectoris I48.0 Paroxysmal atrial PAROXYSMAL ATRIAL Diagnosis 10/06/2019 [facility] fibrillation FIBRILLATION 06:00:00 AM [facility] EST Care Corporation R94.39 Abnormal result of ABNORMAL RESULT OF Diagnosis 0 [facility] other OTHER 06:00:00 AM [facility] CARDIOVASCULAR EST Care function study FUNCTION STUDY Corpor ation Z01.810 Encounter for ENCOUNTER FOR Diagnosis 10/06/2019 [facility] preprocedural PREPROCEDURAL 06:00:00 AM [facility] EST [facility] examination EXAMINATION Corporation Results ID Date Data Source [id number] 03/03/2020 08:00:00 PM EDT [facility] Name Value Range Interpretation Description Data Sup porting Code Source(s) Document(s ) SARS [facility] CORONAVIRUS 2 RNA This lab was ordered by [facility] and reported by [facility]. Procedure
--- NOTE | 2020-06-30 21:03 | PDOC ---
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 She also endorses dyspnea with mild exertion such as walking up and down the stairs x several days. denies trauma. denies fever/chills, PORTER, syncope. Last admission in February 2020 for fall and syncope with unremarkable workup including normal Echo at that time; there was no CHF at that time and told to f/u cell repairer at that time. Allergies: None Past Medical History/PSH: as above Social: lives with family PMD: Dr Henry 06/30/20 21:06 Past History - Medical History Allergies/Adverse Reactions: Allergies Allergy/AdvReac Type Severity Reaction Status Date / Time No Known Drug Allergies Allergy Verified 03/01/20 12:36 Home Medications: Ambulatory Orders Apixaban [Eliquis] 5 mg PO BID #60 tablet 11/08/19 Ascorbate Calcium [Vitamin C] 500 mg PO DAILY #30 tablet 11/08/19 Calcium Carbonate/Vitamin D3 [Calcium 600+D Softgel] 1 each PO DAILY #30 capsule 11/08/19 Escitalopram Oxalate [Lexapro -] 20 mg PO DAILY #30 tablet 11/08/19 Ferrous Sulfate [Feosol] 325 mg PO DAILY #30 ud 11/08/19 Levothyroxine [Synthroid -] 50 mcg PO DAILY #30 tablet 11/08/19 Losartan Potassium [Cozaar -] 50 mg PO DAILY #30 tablet 11/08/19 Metoprolol Succinate [Toprol XL -] 50 mg PO DAILY #30 tab.sr.24h 11/08/19 Pantoprazole Sodium [Protonix -] 40 mg PO DAILY #30 tablet.ec 11/08/19 Pramipexole Dihydrochloride [Mirapex -] 0.25 mg PO BID #60 tablet 11/08/19 Pregabalin [Lyrica -] 150 mg PO BID #120 cap MDD 300mg 11/08/19 Budesonide/Formeterol Fumarate [SYMBICORT 80/4.5mcg -] 1 puff IH BID 03/01/20 Rosuvastatin [Crestor -] 40 mg PO HS 03/01/20 Walker [Ultra-Light Rollator] 1 each MC DAILY #1 each 03/04/20 predniSONE [Deltasone -] 20 mg PO DAILY #2 tablet 03/04/20 Anemia: Yes Asthma: No Cancer: Yes (LEFT mastectomy) Cardiac Disorders: Yes (mvp, AFIB) CVA: No COPD: Yes CHF: No Dementia: No Diabetes: No GI Disorders: (acid reflux) Disorders: Yes HTN: Yes Hypercholesterolemia: Yes Liver Disease: No Seizures: No Thyroid Disease: Yes - Surgical History Abdominal Surgery: No Appendectomy: No Cardiac Surgery: No Cholecystectomy: No Lung Surgery: No Neurologic Surgery: No Orthopedic Surgery: Yes (r fx patella surg times 6, r knee replacement) - Immunization History Immunization Up to Date: No - Psycho-Social/Smoking History Smoking Status: No Smoking History: Unknown if ever smoked Have you smoked in the past 12 months: No Number of Cigarettes Smoked Daily: 0 - Substance Abuse Hx (Audit-C & DAST Scrn) How often the patient has a drink containing alcohol: Never Score: In Men: 4 or > Positive; In Women: 3 or > Positive: 0 Screen Result (Pos requires Nsg. Audit-10AR): Negative In the last yr the pt used illegal drug/Rx for NonMed reason: No Score: Yes response is considered Positive: 0 Screen Result (Positive result requires Nsg. DAST-10): Negative Review of Systems - Review of Systems Able to Perform ROS?: Yes Comments:: 06/30/20 21:04 Review of systems Constitutional: no fevers or chills. No weakness HEENT: no headache or dizziness. No congestion. No visual/hearing disturbances. CVS: no cp or syncope. Resp: +SOB with exertion, No cough. Gastrointestinal: no abdominal pain, nausea, vomiting, diarrhea. Genitourinary: no urinary sx, hematuria. MUSCULOSKELETAL: No joint pain and swelling. No neck or back pain. +leg swelling SKIN: no redness or skin changes, no discharge, no rash. No wounds. +redness in lower extremty Hematologic: no easy bruising/bleeding. NEUROLOGIC: No headache, dizziness, LOC or altered mental status. +weakness, numbness or tingling. Psych: no anxiety or depression Allergic/Immunologic: no allergies All other systems reviewed and negative, or as documented in HPI. 06/30/20 21:06 *Physical Exam - Vital Signs Last Vital Signs Temp Pulse Resp BP Pulse Ox 97.9 F 94 H 20 125/86 100 06/30/20 20:47 06/30/20 20:47 06/30/20 20:47 06/30/20 20:47 06/30/20 20:47 - Physical Exam 06/30/20 21:05 Physical exam General: Well appearing, awake and alert, NAD. HEENT: NCAT, PERRL, EOMI, clear conjunctiva, anicteric, moist mucus membranes, clear oropharynx, no oral lesions.. Neck: neck supple, FROM, no JVD Resp: scant crackles at the bases, most notable in left lower lung field. normal and even respirations, no respiratory distress, on 3L O2 via NC (baseline) CVS: RRR, no murmurs, 2+ peripheral pulses throughout, no peripheral edema Abdomen: soft, NTND, no rebound or guarding. Back: nontender, normal inspection and ROM MSK: 4+ pitting edema in BLE, right > left up to pretibial region. DAWN x4, ROM intact. No clubbing or cyanosis. normal bulk and tone. Neuro: alert, oriented appropriately; no focal neurologic deficits, speech clear. wiggles toes b/l Psych: Calm and cooperative Skin: warm and well perfused, cap refill <2 sec, +RLE erythema, 4+ edema and mild tenderness. warm to palpation. 06/30/20 23:24 Heart Score/ECG Review #1 ECG reviewed & interpreted by me at: 22:40 General ECG Interpretation: Sinus Rhythm, Normal Rate 06/30/20 23:20 EKG normal sinus rhythm 62 bpm, first-degree AV block, narrow QRS, ST and T wave segments and morphology normal. Nonspecific T wave abnormalities ED Treatment Course - LABORATORY CBC & Chemistry Diagram: 06/30/20 21:30 06/30/20 21:30 - RADIOLOGY Radiology Studies Ordered: Category Date Time Status CHEST X-RAY PORTABLE* [RAD] Stat Radiology 06/30/20 20:57 Ordered Medical Decision Making - Medical Decision Making 06/30/20 21:09 Vital Signs Temp Pulse Resp BP Pulse Ox 97.9 F 94 H 20 125/86 100 06/30/20 20:47 06/30/20 20:47 06/30/20 20:47 06/30/20 20:47 06/30/20 20:47 Vital signs reviewed within normal limits, hemodynamically appropriate, patient is on baseline 3 L oxygen for her COPD DDx: ACS, PE, PTX, CHF, COPD exac, pulmonary edema, pleurisy, pneumonia, viral syndrome. effusion. anemia, electrolyte/metabolic derangements. DVT/VTE, lympedema, bethea's cyst. she has no CP now no SOB at rest Interpreted by ED Physician: CXR (1 view): With atelectasis in the left lower lung field, she has low lung volumes, some b/l infiltrative pattern vs vascular congestion, bones appear intact and structures normal alignment, cardiac silhouette within normal limits. no free air under diaphragm, no pneumothorax. EKG normal sinus rhythm at 62 bpm, 1st degree AV block, narrow QRS, ST and T wave segments and morphology normal. Nonspecific T wave abnormalities, similar to prior labs/lytes, cardiac profile, trop/bnp, 06/30/20 22:10 labs and lytes wnl. no wbc ct does not appear septic or toxic, low utility for blood cx or lactic. erythema could also be from venous stasis/lymphedema neg trop bnp is mildly elevated 800s. higher than previous which were negative. duplex is neg for DVT bilaterally will treat as leg edema, lymphedema vs venous stasis vs infection empirically cover for soft tissue infection, no wounds seen treat with ancef and vancomycin. admit to [facility]. admit to Dr Flores, s/o to Dr Tariq 06/30/20 22:32 06/30/20 23:23 Discharge - Discharge Information Problems reviewed: Yes Clinical Impression/Diagnosis: Leg edema, Cellulitis Condition: Fair - Admission Yes - Follow up/Referral Referrals: Aureliano Henry MD [Primary Care Provider] - - Patient Discharge Instructions - Post Discharge Activity
[2020-06-30 21:45] LABS: BASO % 0.3 % (0-2.0); EOS % 4.6 % (0-4.5); HEMOGLOBIN 10.9 GM/dL (10.7-15.3); LYMPH % 38.8 % (8-40); MEAN CELL VOLUME 94.2 fl (80-96); MEAN PLT VOLUME 8.9 fl (7.5-11.1); MONO % 10.8 % (3.8-10.2); NEUT % 45.5 % (42.8-82.8); PLATELET COUNT 150 K/MM3 (134-434); RBC 3.39 M/mm3 (3.60-5.2); RDW 15.2 % (11.6-15.6); WHITE BLOOD COUNT 4.5 K/mm3 (4.0-10.0)
[2020-06-30 22:00] LABS: INR 1.36 (0.83-1.09); PROTHROMBIN TIME (PATIENT) 16.3 SEC (9.7-13.0)
[2020-06-30 22:14] LABS: POTASSIUM 4.2 mmol/L (3.5-5.1)
[2020-06-30 22:16] LABS: ALBUMIN 3.2 g/dl (3.4-5.0); BLOOD UREA NITROGEN 18.7 mg/dL (7-18); CALCIUM 8.3 mg/dL (8.5-10.1)
[2020-06-30 22:20] LABS: CREATININE 0.9 mg/dL (0.55-1.3)
[2020-06-30 22:21] LABS: BILIRUBIN,TOTAL 0.2 mg/dL (0.2-1); TOT PROT 6.1 g/dl (6.4-8.2)
[2020-06-30] MEDS ORDERED: FUROSEMIDE 40 MG/4 ML INJECTABLE VIAL IVPUSH ONE (22:29)
[2020-06-30] MEDS ORDERED: CEFAZOLIN 1 GM/D5W 1 GM/50 ML BAG IVPB ONE (22:29)
[2020-06-30] MEDS ORDERED: VANCOMYCIN HCL 1,500 MG in DEXTROSE 5%-WATER - 500 ML IVPB ONE (22:29)
[2020-06-30] MEDS ORDERED: VANCOMYCIN 1 GRAM (PRE-DOCKED) 1,000 MG/250 ML BAG IVPB ONE (22:46)
[2020-06-30] MEDS ORDERED: CEFAZOLIN 1 GM/D5W 1 GM/50 ML BAG ONE (22:46)
[2020-06-30] MEDS ORDERED: FUROSEMIDE 40 MG/4 ML INJECTABLE VIAL ONE (22:46)
[2020-06-30] MEDS ORDERED: VANCOMYCIN 500 MG VIAL (RESTRICTED TO ID ONLY) ONE (22:46)
--- NOTE | 2020-06-30 23:16 | PN ---
<Diana Flores - Last Filed: 07/01/20 01:53> Teaching Attending Note Name of Resident: Wendy Carcamo ATTENDING PHYSICIAN STATEMENT I saw and evaluated the patient. I reviewed the resident's note and discussed the case with the resident. I agree with the resident's findings and plan as documented. SUBJECTIVE: Patient is an 80 year old woman with a PMH of Hypertension, Hyperlipidemia, COPD (on 3L O2), CAD, Atrial fibrillation (on Eliquis), Parkinson's disease, Hypothyroidism, Breast cancer (s/p left lumpectomy, chemo/radiotherapy 10 years ago), Bilateral total knee replacement and left hip replacement and Recent right ankle sprain (4 weeks ago) who presents to the ER with BLE swelling, worse in RLE, associated with numbness, weakness and pain for 2 weeks. She also has dyspnea with mild exertion such as walking up and down the stairs for several days. Last admission in February 2020 for fall and syncope with unremarkable workup including normal ECHO at that time; there was no CHF at that time and she was told to follow up with metallurgical technician at that time. Patient denies chest pain, abdominal pain, headache, palpitations, dizziness, fever, chills, nausea, vomiting, diarrhea, constipation, dysuria, frequency, urgency, melena, hematochezia or hematuria. Denies alcohol, tobacco or illicit drug use. No sick contacts or recent travels. Family history of HTN, leukemia, HLD and breast cancer. OBJECTIVE: Alert Vital Signs Period Temp Pulse Resp BP Sys/Bocanegra Pulse Ox Last 24 Hr 97.9 F 77-94 20-20 124-125/58-86 100-100 HEENT: No Jaundice, eye redness or discharge, PERRLA, EOMI. Normocephalic, atraumatic. External ears are normal and hearing is grossly intact. No nasal discharge. Neck: Supple, nontender. No palpable adenopathy or thyromegaly. No JVD Chest: Good effort. Clear to auscultation and percussion. Heart: Regular. No S3, rub or murmur Abdomen: Not distended, soft, nontender and no HSM. No rebound or guarding. Normal bowel sounds. Ext: Peripheral pulses intact. Nonpitting Leg edema (R>L). Right leg erythema, warm and tender. Skin: Warm and dry. No petechiae, rash or ecchymosis. Neuro: Alert. Oriented x3. CN 2-12 grossly intact. Sensation grossly intact in all four extremities and DTR are symmetric. Psych: Appropriate mood and affect. Good insight. Home Medications Medication Instructions Recorded Apixaban [Eliquis] 5 mg PO BID #60 tablet 11/08/19 Ascorbate Calcium [Vitamin C] 500 mg PO DAILY #30 tablet 11/08/19 Calcium Carbonate/Vitamin D3 1 each PO DAILY #30 capsule 11/08/19 [Calcium 600+D Softgel] Escitalopram Oxalate [Lexapro -] 20 mg PO DAILY #30 tablet 11/08/19 Ferrous Sulfate [Feosol] 325 mg PO DAILY #30 ud 11/08/19 Levothyroxine [Synthroid -] 50 mcg PO DAILY #30 tablet 11/08/19 Losartan Potassium [Cozaar -] 50 mg PO DAILY #30 tablet 11/08/19 Metoprolol Succinate [Toprol XL -] 50 mg PO DAILY #30 tab.sr.24h 11/08/19 Pantoprazole Sodium [Protonix -] 40 mg PO DAILY #30 tablet.ec 11/08/19 Pramipexole Dihydrochloride 0.25 mg PO BID #60 tablet 11/08/19 [Mirapex -] Pregabalin [Lyrica -] 150 mg PO BID #120 cap MDD 300mg 11/08/19 Budesonide/Formeterol Fumarate 1 puff IH BID 03/01/20 [SYMBICORT 80/4.5mcg -] Rosuvastatin [Crestor -] 40 mg PO HS 03/01/20 Walker [Ultra-Light Rollator] 1 each MC DAILY #1 each 03/04/20 predniSONE [Deltasone -] 20 mg PO DAILY #2 tablet 03/04/20 Abnormal Lab Results 06/30/20 06/30/20 06/30/20 21:30 21:30 21:30 RBC 3.39 L Hct 32.0 L Monocytes % 10.8 H Eosinophils % 4.6 H D PT with INR 16.30 H INR 1.36 H Chloride 109 H Anion Gap 4 L BUN 18.7 H Random Glucose 109 H Calcium 8.3 L B-Natriuretic Peptide Total Protein 6.1 L Albumin 3.2 L 06/30/20 21:30 RBC Hct Monocytes % Eosinophils % PT with INR INR Chloride Anion Gap BUN Random Glucose Calcium B-Natriuretic Peptide 822.0 H Total Protein Albumin Current Medications Generic Name Dose Route Start Last Admin Trade Name Laura PRN Reason Stop Dose Admin Apixaban 5 mg 07/01/20 10:00 Eliquis - PO BID NICOLE Furosemide 40 mg 07/01/20 10:00 Lasix Injection - IVPUSH DAILY NICOLE Clindamycin Phosphate 600 mg in 50 mls @ 100 mls/hr 07/01/20 10:00 Cleocin 600 Mg Premix Ivpb - IVPB Q8H-IV NICOLE Protocol ASSESSMENT AND PLAN: 1. ?Right leg cellulitis/?New onset CHF - CXR shows cardiomegaly, unfolded aorta, wide mediastinum and elevated left hemidiaphragm. No leg DVT noted on Vascular study. Being treated with IV Clindamycin. Consult ID. EKG shows NSR at 62/minute, 1o AV block and QTc 442 with no significant acute ischemic ST-T wave changes. Will admit to telemetry, get urinalysis, get ECHO, TSH, fasting lipids, treat with IV Lasix, restrict dietary salt intake, monitor renal function, monitor and replete electrolytes, get daily weight and consult Cardiology. Viral testing for COVID-19 ordered and patient placed on airborne, droplet and contact isolation. Started on supplemental oxygen via nasal cannula. Will continue comprehensive care for all of patients comorbid conditions including Synthroid for Hypothyroidism and Eliquis for Afib. 2. Hypoalbuminemia - Possibly due to combined effects of malnutrition and inflammation associated with comorbid conditions. Will ensure adequate dietary protein intake and also consult assistant branch manager. Urinalysis pending. 3. Obesity Counseled on the risks associated with obesity. Will provide patient all the necessary assistance, counseling and positive reinforcement to facilitate weight loss. Consult assistant branch manager. 4. Hypertension Will restart suitable outpatient antihypertensive drugs when clinically appropriate. Subsequently, will revise regimen to ensure [id number] excellent BP control. Patient counseled on the injurious effects of uncontrolled hypertension. Nonpharmacologic measures to control hypertension like weight loss, salt restriction and exercise stressed. Importance of adherence to treatment regimen and attainment of normotension emphasized. 5. Mild anemia cause unknown. Will do basic anemia work up including serial stool guaiacs, reticulocyte count and iron studies. 6. DVT prophylaxis - On Eliquis for Afib. 7. Advance directives - Full code <Wendy Carcamo - Last Filed: 07/01/20 12:00> Teaching Attending Note ATTENDING PHYSICIAN STATEMENT I saw and evaluated the patient. I reviewed the resident's note and discussed the case with the resident. I agree with the resident's findings and plan as documented. SUBJECTIVE: OBJECTIVE: ASSESSMENT AND PLAN:
--- OUTSIDE RECORDS SUMMARY | 2020-06-30 23:56 | XMS ---
:1940 Author Organization [facility] Care Team Providers Name Role Phone [...] is protected by Article 27-F of the [facility] Public Health law. If you continue you may haveaccess to information: Regarding HIV / AIDS; Provided by facilities licensed or operated by the [facility] Office of Mental Health; or Provided by the [facility] Office for People With Developmental Disabilities. If such information is present, then the following [facility] mandated warning applies: This information has been [...] law may result in a fine or [place] health [place] facility sentence or both. A general authorization for the release of medical or other information is NOT sufficient authorization for further disclosure. Encounters Encounter Providers Location Date Indications Data Source(s ) Outpatient Attender: ISAIAS, 10/15/2019 R94.39 [facility] HASANAdmitter: 08:34:00 AM [facility] NOMANSelina, Bin1 ATE HASANReferrer: PATRIZIA ESPARZA R94.39 Outpatient Attender: ISAIAS, 10/15/2019 06:00:00 R94.39 [facility] HASANAdmitter: ISAIAS EST [facility] Care HASANReferrer: Randy ESPARZA poration PATRIZIA R94.39 Outpatient Attender: SHEIKH 10/06/2019 06:00:00 I25.10 [id number] [facility] JASBIR ManciniAdmitter: [facility] [id number] [facility] JASBIR VALENCIA [facility].Referrer: JASBIR VALENCIA I25.10 [id number] Insurance Providers Payer name Policy type Policy ID Covered Covered democrat's Policy P aruna / Coverage democrat ID relationship to Gonzalez Inf ormation type gonzalez [facility] [id number] SP [id number] CARE OPTIONS MEDICARE [id number] SP [id number] N00 [facility] [id number] S [id number] CARE OPTIONS MEDICARE [id number] S [id number] N00 [facility] [id number] SP [id number] [facility] [id number] SP [id number] [facility] [id number] SP [id number] [facility] [id number] SP [id number] Problems, Conditions, and Diagnoses Code Display Name Description Problem Type Effective Data Sour ce(s) Dates 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 EST Care UpTap E03.9 Hypothyroidism, HYPOTHYROIDISM, Diagnosis 10/15/2019 [place] branden unspecified UNSPECIFIED 08:34:00 [facility] 3dplusme J44.9 Chronic obstructive CHRONIC Diagnosis 10/15/2019 [facility] gordon pulmonary disease, OBSTRUCTIVE 08:34:00 AM [facility] unspecified PULMONARY DISEASE, EST Care UNSPECIFIED Corporation I50.30 Unspecified UNSPECIFIED Diagnosis 10/15/2019 [place] diastolic DIASTOLIC 08:34:00 AM [facility] (congestive) heart (CONGESTIVE) HEART EST Care failure FAILURE Corporation I11.0 Hypertensive heart HYPERTENSIVE HEART Diagnosis 0 [place] disease with heart DISEASE WITH HEART 08:34:00 AM [facility] failure FAILURE EST Care Corporation 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 10/06/2019 [facility] heart disease of DISEASE OF [place] 06:00:00 AM [facility] [place] coronary CORONARY ARTERY EST [facility] artery without W/O ANG PCTRS Corpora tion angina pectoris I48.0 Paroxysmal atrial PAROXYSMAL ATRIAL Diagnosis 10/06/2019 [place] fibrillation FIBRILLATION 06:00:00 AM [facility] EST Care Corporation R94.39 Abnormal result of ABNORMAL RESULT OF Diagnosis 0 [place] other OTHER 06:00:00 AM [facility] CARDIOVASCULAR EST Care function study FUNCTION STUDY Corpor ation Z01.810 Encounter for ENCOUNTER FOR Diagnosis 10/06/2019 [facility] preprocedural PREPROCEDURAL 06:00:00 AM [facility] EST [facility] examination EXAMINATION Corporation Results ID Date Data Source [id number] 03/03/2020 08:00:00 PM EDT [facility] Name Value Range Interpretation Description Data Sup porting Code Source(s) Document(s ) SARS [facility] CORONAVIRUS 2 RNA This lab was ordered by [facility] and reported by [facility]. Procedure
[2020-07-01] MEDS ORDERED: CLINDAMYCIN 600MG PREMIX IVPB 600 MG/50 ML BAG IVPB SCH (02:00)
[2020-07-01 02:28] LABS: EPI CELLS 1 /uL (0-25.1); HYALINE CASTS 0 /uL (0-3.1); URINE APPEARANCE CLEAR; URINE BACTERIA 9 /uL (0-1359); URINE BILIRUBIN NEGATIVE (NEGATIVE); URINE COLOR YELLOW; URINE GLUCOSE (UA) NEGATIVE (NEGATIVE); URINE KETONE NEGATIVE (NEGATIVE); URINE LEUK ESTERASE NEGATIVE (NEGATIVE); URINE NITRITE NEGATIVE (NEGATIVE); URINE PROTEIN NEGATIVE (NEGATIVE); URINE RBC 24 /uL (0-23.9); URINE UROBILINOGEN 0.2 mg/dL (0.2-1.0); URINE WBC 5 /uL (0-25.8)
--- NOTE | 2020-07-01 03:02 | HP ---
CHIEF COMPLAINT: Leg swelling PCP: Dr. Brodie Henry HISTORY OF PRESENT ILLNESS: Patient is an 80yo female with a PMHx of HTN, HLD,COPD, afib on eliquis, hypothyroidism and breast cancer who present to the ED with 1month hx of b/l leg swelling, worse on the right. It was of gradual onset and has happened in the past before. The current episode is bigger than the previous one. It is relieved to an extent by raising the limb, mostly the right and worsened by walking for too long. She also has a hx of claudication. The patient denies trauma to b/l legchest pain, dizziness, syncope, cough, headache, seizures and SOB as well as family or personal hx of clotting disorder ER course was notable for: (1)Ekg, doppler (2)vit c, vanco (3) Metoprolol Recent Travel:denies PAST MEDICAL HISTORY:HTN, breast cancer PAST SURGICAL HISTORY: HTN, DM, Hrt dz, leukemia, breast cancer Social History: Smoking:denies Alcohol:occasionally Drugs: denies No Known Drug Allergies Allergy (Verified 03/01/20 12:36) HOME MEDICATIONS: Home Medications Medication Instructions Recorded Apixaban [Eliquis] 5 mg PO BID #60 tablet 11/08/19 Ascorbate Calcium [Vitamin C] 500 mg PO DAILY #30 tablet 11/08/19 Calcium Carbonate/Vitamin D3 1 each PO DAILY #30 capsule 11/08/19 [Calcium 600+D Softgel] Escitalopram Oxalate [Lexapro -] 20 mg PO DAILY #30 tablet 11/08/19 Ferrous Sulfate [Feosol] 325 mg PO DAILY #30 ud 11/08/19 Levothyroxine [Synthroid -] 50 mcg PO DAILY #30 tablet 11/08/19 Losartan Potassium [Cozaar -] 50 mg PO DAILY #30 tablet 11/08/19 Metoprolol Succinate [Toprol XL -] 50 mg PO DAILY #30 tab.sr.24h 11/08/19 Pantoprazole Sodium [Protonix -] 40 mg PO DAILY #30 tablet.ec 11/08/19 Pramipexole Dihydrochloride 0.25 mg PO BID #60 tablet 11/08/19 [Mirapex -] Pregabalin [Lyrica -] 150 mg PO BID #120 cap MDD 300mg 11/08/19 Budesonide/Formeterol Fumarate 1 puff IH BID 03/01/20 [SYMBICORT 80/4.5mcg -] Rosuvastatin [Crestor -] 40 mg PO HS 03/01/20 Walker [Ultra-Light Rollator] 1 each MC DAILY #1 each 03/04/20 predniSONE [Deltasone -] 20 mg PO DAILY #2 tablet 03/04/20 REVIEW OF SYSTEMS] No fever, excessive sweating No chest pain, sob, cough or dizziness. No N/V/D, no jaundice No headache, LOC PHYSICAL EXAMINATION Vital Signs - 24 hr 06/30/20 06/30/20 07/01/20 20:47 23:03 01:11 Temperature 97.9 F Pulse Rate 94 H Pulse Rate [ 77 68 Apical] Respiratory 20 20 18 Rate Blood Pressure 125/86 Blood Pressure 124/58 L 100/65 [Left Arm] O2 Sat by Pulse 100 100 99 Oximetry (%) GENERAL: Awake, alert, and fully oriented, just returned from the bathroom at time of examination HEAD: Normal with no signs of trauma. EYES: Pupils equal, round and reactive to light, extraocular movements intact, sclera anicteric, conjunctiva clear. No lid lag. NECK: No neck swelling LUNGS: Breath sounds equal, clear to auscultation bilaterally. No wheezes HEART: S1 and S2 murmur, rub or gallop. ABDOMEN: Soft, nontender, not distended, normoactive bowel sounds, no guarding, no rebound, no masses. No hepatomegaly or splenomegaly. No CVA tenderness. UPPER EXTREMITIES: 2+ pulses, warm, reduced dosalis pulse on right , greater on left. Hyperecon after B/l leg edema up to leg up to knee but non pitting. LOWER EXTREMITIES: 2+ pulses, warm, well-perfused. No calf tenderness. No peripheral edema. NEUROLOGICAL: AOX3 PSYCHIATRIC: Stable and appropriate mood SKIN: Warm, dry, normal turgor Laboratory Results - last 24 hr 06/30/20 06/30/20 06/30/20 21:30 21:30 21:30 WBC 4.5 RBC 3.39 L Hgb 10.9 Hct 32.0 L MCV 94.2 MCH 32.0 MCHC 34.0 RDW 15.2 Plt Count 150 MPV 8.9 Absolute Neuts (auto) 2.1 Neutrophils % 45.5 D Lymphocytes % 38.8 D Monocytes % 10.8 H Eosinophils % 4.6 H D Basophils % 0.3 Nucleated RBC % 0 PT with INR 16.30 H INR 1.36 H PTT (Actin FS) 33.0 Sodium 143 Potassium 4.2 Chloride 109 H Carbon Dioxide 30 Anion Gap 4 L BUN 18.7 H Creatinine 0.9 Est GFR (CKD-EPI)AfAm 69.50 Est GFR (CKD-EPI)NonAf 59.96 Random Glucose 109 H Calcium 8.3 L Total Bilirubin 0.2 AST 24 ALT 25 Alkaline Phosphatase 51 Creatine Kinase 135 Troponin I 0.02 B-Natriuretic Peptide Total Protein 6.1 L Albumin 3.2 L Urine Color Urine Appearance Urine pH Ur Specific [place] Urine Protein Urine Glucose (UA) Urine Ketones Urine Blood Urine Nitrite Urine Bilirubin Urine Urobilinogen Ur Leukocyte Esterase Urine WBC (Auto) Urine RBC (Auto) Urine Casts (Auto) U Epithel Cells (Auto) Urine Bacteria (Auto) 06/30/20 07/01/20 21:30 00:20 WBC RBC Hgb Hct MCV MCH MCHC RDW Plt Count MPV Absolute Neuts (auto) Neutrophils % Lymphocytes % Monocytes % Eosinophils % Basophils % Nucleated RBC % PT with INR INR PTT (Actin FS) Sodium Potassium Chloride Carbon Dioxide Anion Gap BUN Creatinine Est GFR (CKD-EPI)AfAm Est GFR (CKD-EPI)NonAf Random Glucose Calcium Total Bilirubin AST ALT Alkaline Phosphatase Creatine Kinase Troponin I B-Natriuretic Peptide 822.0 H Total Protein Albumin Urine Color Yellow Urine Appearance Clear Urine pH 7.0 D Ur Specific [place] 1.006 L Urine Protein Negative Urine Glucose (UA) Negative Urine Ketones Negative Urine Blood Trace Urine Nitrite Negative Urine Bilirubin Negative Urine Urobilinogen 0.2 Ur Leukocyte Esterase Negative Urine WBC (Auto) 5 Urine RBC (Auto) 24 Urine Casts (Auto) 0 U Epithel Cells (Auto) 1 Urine Bacteria (Auto) 9 ASSESSMENT/PLAN: . #Right leg cellulitis vs New onset CHF CXR shows cardiomegaly, unfolded aorta, wide mediastinum and raised left hemidiaphragm. B/L duplex US neg for DVT. IV Clindamycin given in ED Consult ID sent EKG shows NSR at 62/minute, 1o AV block and QTc 442 with no significant acute ischemic ST-T wave changes. Daily weight Consult Cardiology for evalution Started on supplemental oxygen via nasal cannula. Admit to telemetry Urinalysis, ECHO, TSH, fasting lipids ordered Give IV Lasix and monitor urine output and renal fxn #FEN Salt restricted diet Daily weight Monitor and replete electrolytes Consider continuing Rx with Synthroid for Hypothyroidism Continue Eliquis 5mg PO BID #Hypoalbuminemia Likely 2/2 malnutrition or chronic inflammation Consider dietary protein intake Consider consult to lunchroom food service supervisor. Urinalysis pending. Please f/u result #Obesity Counseled on the risks associated with obesity. Will benefit from dietary education before d/c. Consider consult to lunchroom food service supervisor. #Hypertension Patient started on losartan and metoprolol for BP control. Will restart home meds when clinically appropriate #Mild anemia unknown etiology serial stool guaiacs ordered Consider reticulocyte count and iron studies. #DVT prophylaxis - On Eliquis for Afib. Person to Notifiy: Rubén Davies (Son-[phone]-[place]) Pharmacy: [facility] (Preferred) Advance directives - Full code Family Medical History Family History: As Documented Visit type - Medication Review Med list reviewed for High Risk Meds patients 65 and older: Yes - Emergency Visit Emergency Visit: Yes ED Registration Date: 06/30/20 Care time: The patient presented to the Emergency Department on the above date and was hospitalized for further evaluation of their emergent condition. - New Patient This patient is new to me today: Yes Date on this admission: 07/01/20 - Critical Care Critical Care patient: No ATTENDING PHYSICIAN STATEMENT I saw and evaluated the patient. I reviewed the resident's note and discussed the case with the resident. I agree with the resident's findings and plan as documented. SUBJECTIVE: OBJECTIVE: ASSESSMENT AND PLAN:
[2020-07-01 07:14] LABS: BASO % 0.3 % (0-2.0); HEMATOCRIT 33.3 % (32.4-45.2); LYMPH % 32.3 % (8-40); MCH 30.8 pg (25.7-33.7); MCHC 33.1 g/dl (32.0-36.0); MEAN CELL VOLUME 93.1 fl (80-96); MEAN PLT VOLUME 9.1 fl (7.5-11.1); MONO % 9.7 % (3.8-10.2); NEUT % 54.7 % (42.8-82.8); PLATELET COUNT 157 K/MM3 (134-434); RBC 3.57 M/mm3 (3.60-5.2); RDW 15.2 % (11.6-15.6); WHITE BLOOD COUNT 5.8 K/mm3 (4.0-10.0)
[2020-07-01 07:24] LABS: POTASSIUM 4.1 mmol/L (3.5-5.1)
[2020-07-01 07:30] LABS: ALBUMIN 3.4 g/dl (3.4-5.0); CALCIUM 8.8 mg/dL (8.5-10.1)
[2020-07-01 07:31] LABS: BLOOD UREA NITROGEN 16.3 mg/dL (7-18)
[2020-07-01 07:33] LABS: CREATININE 0.7 mg/dL (0.55-1.3)
[2020-07-01 07:34] LABS: BILIRUBIN,TOTAL 0.6 mg/dL (0.2-1); TOT PROT 6.4 g/dl (6.4-8.2)
--- NOTE | 2020-07-01 07:35 | CON.CARD ---
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 She also has dyspnea with mild exertion such as walking up and down the stairs for several days. Last admission in February 2020 for fall and syncope with unremarkable workup including normal ECHO at that time; there was no CHF at that time and she was told to follow up with game agent at that time. Patient denies chest pain, abdominal pain, headache, palpitations, dizziness, fever, chills, nausea, vomiting, diarrhea, constipation, dysuria, frequency, urgency, melena, hematochezia or hematuria. Denies alcohol, tobacco or illicit drug use. No sick contacts or recent travels. Family history of HTN, leukemia, HLD and breast can cer. " She denies CP. + PIMENTEL for several days. She has also had erythema of both legs and abdominal distension. Denies CP or palpitations. No fever/chills. Mild orthopnea and some wheezing. 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: Peripheral Neuropathy, TIA Cardio/Vascular: Yes: AFIB, CAD, HTN, Hyperlipdemia Pulmonary: Yes: Asthma Gastrointestinal: Yes: GERD ...: No Endocrine: Yes: Hypothyroidism - Past Surgical History Past Surgical History: Yes: Joint Replacement (left hip, TKR right), Mastectomy (Left) - Alcohol/Substance Use Hx Alcohol Use: No - Smoking History Smoking history: Never smoked Have you smoked in the past 12 months: No Aproximately how many cigarettes per day: 0 - Social History History of Recent Travel: No Home Medications - Allergies Allergies/Adverse Reactions: Allergies Allergy/AdvReac Type Severity Reaction Status Date / Time No Known Drug Allergies Allergy Verified 03/01/20 12:36 - Home Medications Home Medications: Ambulatory Orders Apixaban [Eliquis] 5 mg PO BID #60 tablet 11/08/19 Ferrous Sulfate [Feosol] 325 mg PO DAILY #30 ud 11/08/19 Levothyroxine [Synthroid -] 50 mcg PO DAILY #30 tablet 11/08/19 Losartan Potassium [Cozaar -] 50 mg PO DAILY #30 tablet 11/08/19 Metoprolol Succinate [Toprol XL -] 50 mg PO DAILY #30 tab.sr.24h 11/08/19 Pantoprazole Sodium [Protonix -] 40 mg PO DAILY #30 tablet.ec 11/08/19 Pramipexole Dihydrochloride [Mirapex -] 0.25 mg PO BID #60 tablet 11/08/19 Budesonide/Formeterol Fumarate [SYMBICORT 80/4.5mcg -] 1 puff IH BID 03/01/20 Rosuvastatin [Crestor -] 40 mg PO HS 03/01/20 Ascorbate Calcium [Vitamin C] 600 mg PO DAILY 07/01/20 Cyanocobalamin (Vitamin B-12) [Vitamin B-12] 1,000 mcg PO 07/01/20 Pregabalin [Lyrica] 150 mg PO DAILY 07/01/20 Tramadol HCl/Acetaminophen [Tramadol-Acetaminophn 37.5-325] 1 each PO BID 07/01/20 Family Medical History Family History: Unremarkable (not pertinent to this presentation) Review of Systems - Review of Systems Eyes: reports: No Symptoms HENT: reports: No Symptoms Cardiovascular: reports: Edema, Shortness of Breath Respiratory: reports: SOB on Exertion Gastrointestinal: reports: Other (distension) Neurological: reports: No Symptoms Endocrine: reports: No Symptoms Hematology/Lymphatic: reports: No Symptoms Psychiatric: reports: No Symptoms - Risk Factors Known Risk Factors: Yes: Age, Hypertension Vital Signs: Vital Signs Temperature 97.8 F 07/01/20 06:45 Pulse Rate 82 07/01/20 06:45 Respiratory Rate 20 07/01/20 06:45 Blood Pressure 138/66 07/01/20 06:45 O2 Sat by Pulse Oximetry (%) 99 07/01/20 06:45 Constitutional: Yes: No Distress Eyes: Yes: Conjunctiva Clear Respiratory: Yes: Other (rales at bases.) Gastrointestinal: Yes: Soft, Distention Cardiovascular: Yes: Regular Rate and Rhythm JVD: Yes Heart Sounds: Yes: S3 Edema: Yes (erythema) Edema: LLE: 2+, RLE: 2+ Peripheral Pulses WNL: Yes Neurological: Yes: Alert, Oriented ...Motor Strength: WNL - Other Data Labs, Other Data: CBC, BMP 07/01/20 05:39 07/01/20 05:39 INR, PTT INR 1.36 (0.83-1.09) H 06/30/20 21:30 Troponin, BNP 06/30/20 06/30/20 21:30 21:30 Troponin I 0.02 B-Natriuretic Peptide 822.0 H Troponin, BNP 06/30/20 06/30/20 21:30 21:30 Troponin I 0.02 B-Natriuretic Peptide 822.0 H Laboratory Tests 06/30/20 06/30/20 07/01/20 21:30 21:30 05:39 WBC 5.8 Hgb 11.0 Plt Count 157 Sodium Potassium Creatinine Troponin I 0.02 B-Natriuretic Peptide 822.0 H 07/01/20 05:39 WBC Hgb Plt Count Sodium 141 Potassium 4.1 Creatinine 0.7 Troponin I B-Natriuretic Peptide Laboratory Tests 06/30/20 06/30/20 06/30/20 21:30 21:30 21:30 WBC Hgb Plt Count INR 1.36 H Sodium Potassium Troponin I 0.02 B-Natriuretic Peptide 822.0 H COVID-19 (REGGIE) 07/01/20 07/01/20 07/01/20 05:39 05:39 05:42 WBC 5.8 Hgb 11.0 Plt Count 157 INR Sodium 141 Potassium 4.1 Troponin I B-Natriuretic Peptide COVID-19 (REGGIE) Pending Ejection Fraction %: LVEF > or = 40 % Imaging - Results EKG: Image Reviewed (nsr 62bpm, 1st degree AV block TELE: NSR, ST, PVC. 3 beat NSVT) Assessment/Plan DATA: Echo here 02/2020: Moderate AR, normal biV fx IMP: PAF Acute on chronic diastolic CHF NSVT AR LE cellulitis HTN HLD Asthma REC: 1. PAF: -In sinus -Cont Eliquis and Toprol -Tele 2. Acute on chronic diastolic CHF: -unclear precipitant, possibly infection/cellulitis -Cycle cardiac enzymes -Repeat echo -Agree with Lasix 40mg IV daily with daily weights and BMP to monitor renal fx -When euvolemic, consider ischemic evaluation with pharm MPI 3. NSVT: -Echo for EF -Cycle cardiac enzymes -Keep K+ and Mg2- >4 and 2 respectively 4. AR: -moderate, with no LV dilatation 02/2020; repeat echo 5. LE cellulitis: -as per primary team 6. HTN: -cont home meds 7. HLD: -Outpatient f/u 8. Asthma: -Chronic, current picture more c/w decompensated CHF
--- NOTE | 2020-07-01 07:48 | PN ---
Progress Note, Physician Chief Complaint: Seen and examined in bed. Admitted for increased swelling in LE, R>L with mild erythema. No fevers at home. History of Present Illness: 80 year old female with a significant past medical history of hypertension, hyperlipidemia, COPD on 3L [place], CAD, atrial fibrillation (on eliquis), parkinson, hypothyroidism, breast cancer sp lumpectomy, chemo, radiation 10 years ago, bilateral total knee replacement and left hip replacement, recent right ankle sprain (4 weeks ago) who presents to the ED with BLE swelling, worse in RLE, associated with numbness, weakness and pain x 2 weeks. She also endorses dyspnea with mild exertion such as walking up and down the stairs x several days. - Current Medication List Current Medications: Active Medications Apixaban (Eliquis -) 5 mg PO BID NICOLE Furosemide (Lasix Injection -) 40 mg IVPUSH DAILY NICOLE Clindamycin Phosphate (Cleocin 600 Mg Premix Ivpb -) 600 mg in 50 mls @ 100 mls/hr IVPB Q8H-IV NICOLE; Protocol - Objective Vital Signs: Vital Signs Temperature 97.8 F 07/01/20 06:45 Pulse Rate 82 07/01/20 06:45 Respiratory Rate 20 07/01/20 06:45 Blood Pressure 138/66 07/01/20 06:45 O2 Sat by Pulse Oximetry (%) 99 07/01/20 06:45 Constitutional: Yes: Well Nourished, No Distress, Calm Eyes: Yes: WNL, Conjunctiva Clear HENT: Yes: WNL, Atraumatic, Normocephalic Neck: Yes: WNL, Supple, Trachea Midline Cardiovascular: Yes: WNL, Regular Rate and Rhythm Respiratory: Yes: Regular, CTA Bilaterally, Diminished (at bases), On Nasal O2 (2L) Gastrointestinal: Yes: WNL, Normal Bowel Sounds, Soft, Abdomen, Obese ...Rectal Exam: Yes: Deferred Genitourinary: Yes: WNL Breast(s): Yes: WNL Musculoskeletal: Yes: WNL Extremities: Yes: WNL Edema: Yes Edema: RUE: 2+, LLE: 1+ Peripheral Pulses WNL: Yes Peripheral Pulses: Left Radial: 2+, Right Radial: 2+, Left Doralis Pedis: 2+, Right Dorsalis Pedis: 2+, Left Femoral: 2+, Right Femoral: 2+ Integumentary: Yes: Erythema (to LE, R>L) Neurological: Yes: WNL, Alert, Oriented ...Motor Strength: WNL Psychiatric: Yes: WNL Labs: CBC, BMP 07/01/20 05:39 07/01/20 05:39 INR, PTT INR 1.36 (0.83-1.09) H 06/30/20 21:30 - ....Imaging Chest X-ray: Image Reviewed (atelectasis to left. Increased interstitial markings.) Ultrasound: Report Reviewed (No DVT. BL soft tissue edema) Other: Pending (TTE:02/2020: Moderate AR, normal biV fx) Problem List - Problems (1) Suspected COVID-19 virus infection Assessment/Plan: COVID Suspicion low On RA strict airborne/droplet precautions until resulted Code(s): Z20.828 - CONTACT W AND EXPOSURE TO OTH VIRAL COMMUNICABLE DISEASES (2) On home oxygen therapy Assessment/Plan: Supplemental O2 to maintain SPO2 >90% pulmonary consultation appreciated Code(s): Z99.81 - DEPENDENCE ON SUPPLEMENTAL OXYGEN (3) Parkinson disease Assessment/Plan: supportive care Code(s): G20 - PARKINSON'S DISEASE (4) S/p total knee replacement, bilateral Assessment/Plan: c/o pain to R knee lidoderm patch applied PT Code(s): Z96.653 - PRESENCE OF ARTIFICIAL KNEE JOINT, BILATERAL (5) Hip joint replacement status Assessment/Plan: stable Code(s): Z96.649 - PRESENCE OF UNSPECIFIED ARTIFICIAL HIP JOINT (6) Leg swelling Assessment/Plan: increased swelling to LE R>L acute on chronic diastolic heart failure BNP 822 started on IV lasix daily weights, strict I/Os Code(s): M79.89 - OTHER SPECIFIED SOFT TISSUE DISORDERS (7) Afib Assessment/Plan: rate controlled c/w metoprolol, apixaban cardiology consult appreciated Code(s): I48.91 - UNSPECIFIED ATRIAL FIBRILLATION Qualifiers: Atrial fibrillation type: chronic (8) Breast CA Assessment/Plan: stable Code(s): C50.919 - MALIGNANT NEOPLASM OF UNSP SITE OF UNSPECIFIED FEMALE BREAST (9) CAD (coronary artery disease) Assessment/Plan: c/w metoprolol, statin Code(s): I25.10 - ATHSCL HEART DISEASE OF [place] CORONARY ARTERY W/O ANG PCTRS (10) HLD (hyperlipidemia) Code(s): E78.5 - HYPERLIPIDEMIA, UNSPECIFIED (11) HTN (hypertension) Assessment/Plan: normotensive c/w losartan Code(s): I10 - ESSENTIAL (PRIMARY) HYPERTENSION Qualifiers: Hypertension type: essential hypertension Qualified Code(s): I10 - Essential (primary) hypertension (12) Hypothyroid Assessment/Plan: c/w synthroid Code(s): E03.9 - HYPOTHYROIDISM, UNSPECIFIED (13) Acute on chronic diastolic (congestive) heart failure Assessment/Plan: BNP 822 c/w IV lasix daily weights, strict I/Os 03/02 TTE: EF 55%, mild MR EKG: Image Reviewed (nsr 62bpm, 1st degree AV block TELE: NSR, ST, PVC. 3 beat NSVT) Code(s): I50.33 - ACUTE ON CHRONIC DIASTOLIC (CONGESTIVE) HEART FAILURE (14) Chronic pain Assessment/Plan: pain to knees BL tramadol with tylenol prn PT Code(s): G89.29 - OTHER CHRONIC PAIN Visit type - Emergency Visit Emergency Visit: Yes ED Registration Date: 06/30/20 Care time: The patient presented to the Emergency Department on the above date and was hospitalized for further evaluation of their emergent condition. - New Patient This patient is new to me today: Yes Date on this admission: 07/01/20 - Critical Care Critical Care patient: No - Discharge Referral Referred to [facility] Med [facility].C[facility] No - Medication Review Med list reviewed for High Risk Meds patients 65 and older: Yes
[2020-07-01] MEDS ORDERED: ALBUTEROL SO4 2.5/IPRATROPIUM 0.5 INH SOL 3 ML VIAL.NEB. NEB PRN (08:03)
[2020-07-01 08:15] LABS: MAGNESIUM 1.9 mg/dL (1.8-2.4)
[2020-07-01 08:18] LABS: PHOSPHOROUS 3.8 mg/dL (2.5-4.9)
[2020-07-01] MEDS ORDERED: ESCITALOPRAM OXALATE 10 MG TABLET ONE (09:48)
[2020-07-01] MEDS ORDERED: PT OWN MED DRAWER 7, Y5N ONE ×3 (09:49→20:56)
[2020-07-01] MEDS ORDERED: PRAMIPEXOLE DIHYDROCHLORIDE 0.25 MG TABLET PO SCH (10:00)
[2020-07-01] MEDS ORDERED: LOSARTAN POTASSIUM 50 MG TABLET PO SCH (10:00)
[2020-07-01] MEDS: CLINDAMYCIN 600MG PREMIX IVPB 600 MG/50 ML BAG IVPB SCH ×2 (10:09→17:21)
[2020-07-01] MEDS: FUROSEMIDE 40 MG/4 ML INJECTABLE VIAL IVPUSH SCH (10:09)
[2020-07-01] MEDS: PREGABALIN 75 MG CAPSULE PO SCH ×2 (10:10→21:05)
[2020-07-01] MEDS: FERROUS SO4 325 MG TABLET (FP) PO SCH (10:11)
[2020-07-01] MEDS: ASCORBIC ACID 500 MG TABLET (FP) PO SCH (10:11)
[2020-07-01] MEDS: APIXABAN 5 MG TABLET PO SCH ×2 (10:11→21:04)
[2020-07-01] MEDS: LEVOTHYROXINE NA 50 MCG TABLET (FP) PO SCH (10:11)
[2020-07-01] MEDS: PANTOPRAZOLE 40 MG TABLET PO SCH (10:11)
[2020-07-01] MEDS: MULTIVITAMINS (DAILY MVI) TABLET (FP) PO SCH (10:11)
[2020-07-01] MEDS: ESCITALOPRAM OXALATE 20 MG TABLET PO SCH (10:12)
[2020-07-01] MEDS: BUDESONIDE/FORMETEROL FUMARATE 80/4.5 mcg INHALER IH SCH ×2 (11:24→21:05)
[2020-07-01] MEDS: LIDOCAINE 5% TOPICAL PATCH TP SCH (12:49)
--- NOTE | 2020-07-01 13:52 | CON.PULM ---
Consult Consult Specialty:: PULMONARY Referred by:: FERNANDO Thomas Reason for Consultation:: shortness of breath - History of Present Illness Chief Complaint: leg swelling History of Present Illness: 80yo female with h/o HTN, hyperlipidemia, COPD, atrial fibrillation, hypothyroidism, h/o breast ca who was admitted with worsening leg swelling. Reports some dyspnea on exertion and a cough productive of white/clear sputum. No fevers, chills or sweats. No chest pain or discomfort. No wheezing. She is a nonsmoker. 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: Peripheral Neuropathy, TIA Cardio/Vascular: Yes: AFIB, CAD, HTN, Hyperlipdemia Pulmonary: Yes: Asthma Gastrointestinal: Yes: GERD ...: No Endocrine: Yes: Hypothyroidism - Past Surgical History Past Surgical History: Yes: Joint Replacement (left hip, TKR right), Mastectomy (Left) - Alcohol/Substance Use Hx Alcohol Use: No - Smoking History Smoking history: Never smoked Have you smoked in the past 12 months: No Aproximately how many cigarettes per day: 0 - Social History History of Recent Travel: No Home Medications - Allergies Allergies/Adverse Reactions: Allergies Allergy/AdvReac Type Severity Reaction Status Date / Time No Known Drug Allergies Allergy Verified 03/01/20 12:36 - Home Medications Home Medications: Ambulatory Orders Apixaban [Eliquis] 5 mg PO BID #60 tablet 11/08/19 Ferrous Sulfate [Feosol] 325 mg PO DAILY #30 ud 11/08/19 Levothyroxine [Synthroid -] 50 mcg PO DAILY #30 tablet 11/08/19 Losartan Potassium [Cozaar -] 50 mg PO DAILY #30 tablet 11/08/19 Metoprolol Succinate [Toprol XL -] 50 mg PO DAILY #30 tab.sr.24h 11/08/19 Pantoprazole Sodium [Protonix -] 40 mg PO DAILY #30 tablet.ec 11/08/19 Pramipexole Dihydrochloride [Mirapex -] 0.25 mg PO BID #60 tablet 11/08/19 Budesonide/Formeterol Fumarate [SYMBICORT 80/4.5mcg -] 1 puff IH BID 03/01/20 Rosuvastatin [Crestor -] 40 mg PO HS 03/01/20 Ascorbate Calcium [Vitamin C] 600 mg PO DAILY 07/01/20 Cyanocobalamin (Vitamin B-12) [Vitamin B-12] 1,000 mcg PO 07/01/20 Pregabalin [Lyrica] 150 mg PO DAILY 07/01/20 Tramadol HCl/Acetaminophen [Tramadol-Acetaminophn 37.5-325] 1 each PO BID 07/01/20 Family Medical History Family History: Unremarkable (not pertinent to this presentation) Review of Systems - Review of Systems Constitutional: denies: Chills, Fever Eyes: denies: Recent Change in Vision HENT: denies: Nasal Congestion, Throat Pain Neck: denies: Stiffness, Tenderness Cardiovascular: reports: Edema, Shortness of Breath. denies: Chest Pain Respiratory: reports: Cough, SOB on Exertion. denies: Hemoptysis, Wheezing Gastrointestinal: denies: Abdominal Pain, Nausea, Vomiting Genitourinary: denies: Dysuria, Hematuria Neurological: denies: Dizziness, Headache Endocrine: denies: Unexplained Weight Loss Physical Exam Vital Sings: Vital Signs Temperature 98.5 F 07/01/20 10:00 Pulse Rate 84 07/01/20 10:00 Respiratory Rate 20 07/01/20 10:00 Blood Pressure 111/67 07/01/20 10:00 O2 Sat by Pulse Oximetry (%) 99 07/01/20 10:00 Constitutional: Yes: Calm Eyes: Yes: Conjunctiva Clear, EOM Intact HENT: Yes: Atraumatic, Normocephalic Neck: Yes: Supple, Trachea Midline Cardiovascular: Yes: Regular Rate and Rhythm Respiratory: Yes: Diminished (at bases) ...Clubbing: No Gastrointestinal: Yes: Normal Bowel Sounds, Soft. No: Tenderness Edema: Yes Neurological: Yes: Alert, Oriented Labs: CBC, BMP 07/01/20 05:39 07/01/20 05:39 Imaging - Results Chest X-ray: Report Reviewed, Image Reviewed Assessment/Plan Acute on Chronic Diastolic Heart Failure Paroxysmal Atrial Fibrillation Aortic Regurgitation Asthma HTN Hyperlipidemia - continue lasix - moitor urine output, creatinine - daily weights - O2 to keep SpO2 >90% - rate controlled - continue anticoagulation Thank you for this consult Lambert Tony MD
--- NOTE | 2020-07-01 17:10 | CON.ID ---
Consult - History of Present Illness History of Present Illness: 80 y.o. female with PMH of CAD, AFIB, HTN, HLD, COPD on O2 via NC, Parkinsons, hypothyroidism, Hx of breast CA s/p lumpectomy/RT/chemotherapy in the past, s/p b/l TKR, Lt THR presents with c/o b/l LE edema and RLE pain worsening over the past 2 wks. She sustained a Rt ankle sprain 4 wks ago and the swelling has been worsening. Pt c/o cough and PIMENTEL. States she saw her PMD for a bronchitis and was given (? antibiotic, ? steroids) and her breathing improved. She usually ambulates with a cane and drives. Lives with son and denies any recent sick contacts/travel. Denies chest pain or abd pain/n/v/d or dysuria. No history of recent fever/chills. Has no other specific complaints. Labs/imaging results reviewed. - History Source History Provided By: Patient - Past Medical History ACTIVITIES COORDINATOR: Yes: Peripheral Neuropathy, TIA Cardio/Vascular: Yes: AFIB, CAD, HTN, Hyperlipdemia Pulmonary: Yes: Asthma, COPD, O2 Dependent Gastrointestinal: Yes: GERD ...: No Heme/Onc: Yes: Cancer (breat CA s/p lumpectomy/chemo/RT in the past) Musculoskeletal: Yes: Other (s/p Rt ankle sprain) Endocrine: Yes: Hypothyroidism - Past Surgical History Past Surgical History: Yes: Joint Replacement (left hip, TKR right), Mastectomy (Left) - Alcohol/Substance Use Hx Alcohol Use: No - Smoking History Smoking history: Never smoked Have you smoked in the past 12 months: No Aproximately how many cigarettes per day: 0 - Social History Usual Living Arrangement: Other (with Son) ADL: Independent History of Recent Travel: No Home Medications - Allergies Allergies/Adverse Reactions: Allergies Allergy/AdvReac Type Severity Reaction Status Date / Time No Known Drug Allergies Allergy Verified 03/01/20 12:36 - Home Medications Home Medications: Ambulatory Orders Apixaban [Eliquis] 5 mg PO BID #60 tablet 11/08/19 Ferrous Sulfate [Feosol] 325 mg PO DAILY #30 ud 11/08/19 Levothyroxine [Synthroid -] 50 mcg PO DAILY #30 tablet 11/08/19 Losartan Potassium [Cozaar -] 50 mg PO DAILY #30 tablet 11/08/19 Metoprolol Succinate [Toprol XL -] 50 mg PO DAILY #30 tab.sr.24h 11/08/19 Pantoprazole Sodium [Protonix -] 40 mg PO DAILY #30 tablet.ec 11/08/19 Budesonide/Formeterol Fumarate [SYMBICORT 80/4.5mcg -] 1 puff IH BID 03/01/20 Rosuvastatin [Crestor -] 40 mg PO HS 03/01/20 Ascorbate Calcium [Vitamin C] 600 mg PO DAILY 07/01/20 Cyanocobalamin (Vitamin B-12) [Vitamin B-12] 1,000 mcg PO 07/01/20 Pregabalin [Lyrica] 150 mg PO DAILY 07/01/20 Tramadol HCl/Acetaminophen [Tramadol-Acetaminophn 37.5-325] 1 each PO BID 07/01/20 Family Medical History Family History: Unremarkable (not pertinent to this presentation) Review of Systems - Review of Systems Constitutional: reports: No Symptoms Eyes: reports: No Symptoms HENT: reports: No Symptoms Neck: reports: No Symptoms Cardiovascular: reports: No Symptoms Respiratory: reports: SOB on Exertion Gastrointestinal: reports: No Symptoms Genitourinary: reports: No Symptoms Integumentary: reports: Erythema (RLE) Neurological: reports: No Symptoms Endocrine: reports: No Symptoms Hematology/Lymphatic: reports: No Symptoms Psychiatric: reports: No Symptoms Physical Exam Vital Signs: Vital Signs Temperature 98.4 F 07/01/20 13:53 Pulse Rate 104 H 07/01/20 13:53 Respiratory Rate 18 07/01/20 13:53 Blood Pressure 102/66 07/01/20 13:53 O2 Sat by Pulse Oximetry (%) 99 07/01/20 10:00 Constitutional: Yes: Well Nourished, No Distress, Calm Eyes: Yes: Conjunctiva Clear, EOM Intact HENT: Yes: Atraumatic Cardiovascular: Yes: Regular Rate and Rhythm Respiratory: Yes: Diminished (slightly bases, no r/r/w) Gastrointestinal: Yes: Normal Bowel Sounds, Soft, Abdomen, Obese Renal/: Yes: WNL Musculoskeletal: Yes: WNL Extremities: Yes: Erythema (RLE warmth/erythema/edema/pain) Edema: Yes Edema: LLE: 1+, RLE: 1+ Peripheral Pulses WNL: Yes Integumentary: Yes: WNL Neurological: Yes: Alert, Oriented Psychiatric: Yes: Alert Labs: CBC, BMP 07/01/20 05:39 07/01/20 05:39 Laboratory Tests 06/30/20 06/30/20 06/30/20 21:30 21:30 21:30 WBC 4.5 RBC 3.39 L Hgb 10.9 Hct 32.0 L MCV 94.2 MCH 32.0 MCHC 34.0 RDW 15.2 Plt Count 150 MPV 8.9 Absolute Neuts (auto) 2.1 Neutrophils % 45.5 D Lymphocytes % 38.8 D Monocytes % 10.8 H Eosinophils % 4.6 H D Basophils % 0.3 Nucleated RBC % 0 Retic Count PT with INR 16.30 H INR 1.36 H PTT (Actin FS) 33.0 Sodium 143 Potassium 4.2 Chloride 109 H Carbon Dioxide 30 Anion Gap 4 L BUN 18.7 H Creatinine 0.9 Est GFR (CKD-EPI)AfAm 69.50 Est GFR (CKD-EPI)NonAf 59.96 Random Glucose 109 H Calcium 8.3 L Phosphorus Magnesium Ferritin Total Bilirubin 0.2 AST 24 ALT 25 Alkaline Phosphatase 51 Creatine Kinase 135 Troponin I 0.02 B-Natriuretic Peptide Total Protein 6.1 L Albumin 3.2 L TSH Urine Color Urine Appearance Urine pH Ur Specific [place] Urine Protein Urine Glucose (UA) Urine Ketones Urine Blood Urine Nitrite Urine Bilirubin Urine Urobilinogen Ur Leukocyte Esterase Urine WBC (Auto) Urine RBC (Auto) Urine Casts (Auto) U Epithel Cells (Auto) Urine Bacteria (Auto) 06/30/20 07/01/20 07/01/20 21:30 00:20 05:39 WBC 5.8 RBC 3.57 L Hgb 11.0 Hct 33.3 MCV 93.1 MCH 30.8 MCHC 33.1 RDW 15.2 Plt Count 157 MPV 9.1 Absolute Neuts (auto) 3.2 Neutrophils % 54.7 D Lymphocytes % 32.3 Monocytes % 9.7 Eosinophils % 3.0 Basophils % 0.3 Nucleated RBC % 0 Retic Count PT with INR INR PTT (Actin FS) Sodium Potassium Chloride Carbon Dioxide Anion Gap BUN Creatinine Est GFR (CKD-EPI)AfAm Est GFR (CKD-EPI)NonAf Random Glucose Calcium Phosphorus Magnesium Ferritin Total Bilirubin AST ALT Alkaline Phosphatase Creatine Kinase Troponin I B-Natriuretic Peptide 822.0 H Total Protein Albumin TSH Urine Color Yellow Urine Appearance Clear Urine pH 7.0 D Ur Specific [place] 1.006 L Urine Protein Negative Urine Glucose (UA) Negative Urine Ketones Negative Urine Blood Trace Urine Nitrite Negative Urine Bilirubin Negative Urine Urobilinogen 0.2 Ur Leukocyte Esterase Negative Urine WBC (Auto) 5 Urine RBC (Auto) 24 Urine Casts (Auto) 0 U Epithel Cells (Auto) 1 Urine Bacteria (Auto) 9 07/01/20 07/01/20 05:39 05:39 WBC RBC Hgb Hct MCV MCH MCHC RDW Plt Count MPV Absolute Neuts (auto) Neutrophils % Lymphocytes % Monocytes % Eosinophils % Basophils % Nucleated RBC % Retic Count 2.24 H PT with INR INR PTT (Actin FS) Sodium 141 Potassium 4.1 Chloride 104 Carbon Dioxide 33 H Anion Gap 4 L BUN 16.3 Creatinine 0.7 Est GFR (CKD-EPI)AfAm 94.18 Est GFR (CKD-EPI)NonAf 81.26 Random Glucose 89 Calcium 8.8 Phosphorus 3.8 Magnesium 1.9 Ferritin 380.2 Total Bilirubin 0.6 AST 19 ALT 25 Alkaline Phosphatase 53 Creatine Kinase Troponin I B-Natriuretic Peptide Total Protein 6.4 Albumin 3.4 TSH 2.18 Urine Color Urine Appearance Urine pH Ur Specific [place] Urine Protein Urine Glucose (UA) Urine Ketones Urine Blood Urine Nitrite Urine Bilirubin Urine Urobilinogen Ur Leukocyte Esterase Urine WBC (Auto) Urine RBC (Auto) Urine Casts (Auto) U Epithel Cells (Auto) Urine Bacteria (Auto) Imaging - Results Chest X-ray: Report Reviewed Ultrasound: Report Reviewed Problem List - Problems (1) Acute on chronic diastolic (congestive) heart failure Code(s): I50.33 - ACUTE ON CHRONIC DIASTOLIC (CONGESTIVE) HEART FAILURE (2) Hip joint replacement status Code(s): Z96.649 - PRESENCE OF UNSPECIFIED ARTIFICIAL HIP JOINT (3) Leg swelling Code(s): M79.89 - OTHER SPECIFIED SOFT TISSUE DISORDERS (4) On home oxygen therapy Code(s): Z99.81 - DEPENDENCE ON SUPPLEMENTAL OXYGEN (5) Parkinson disease Code(s): G20 - PARKINSON'S DISEASE (6) S/p total knee replacement, bilateral Code(s): Z96.653 - PRESENCE OF ARTIFICIAL KNEE JOINT, BILATERAL (7) Atrial fibrillation Code(s): I48.91 - UNSPECIFIED ATRIAL FIBRILLATION (8) CAD (coronary artery disease) Code(s): I25.10 - ATHSCL HEART DISEASE OF [place] CORONARY ARTERY W/O ANG PCTRS (9) COPD (chronic obstructive pulmonary disease) Code(s): J44.9 - CHRONIC OBSTRUCTIVE PULMONARY DISEASE, UNSPECIFIED (10) Cellulitis Code(s): L03.90 - CELLULITIS, UNSPECIFIED (11) GERD (gastroesophageal reflux disease) Code(s): K21.9 - GASTRO-ESOPHAGEAL REFLUX DISEASE WITHOUT ESOPHAGITIS (12) HLD (hyperlipidemia) Code(s): E78.5 - HYPERLIPIDEMIA, UNSPECIFIED (13) HTN (hypertension) Code(s): I10 - ESSENTIAL (PRIMARY) HYPERTENSION Qualifiers: Hypertension type: essential hypertension Qualified Code(s): I10 - Essential (primary) hypertension (14) History of breast cancer Code(s): Z85.3 - PERSONAL HISTORY OF MALIGNANT NEOPLASM OF BREAST Assessment/Plan RLE cellulitis b/l LE edema COPD on home O2 Acute on chronic CHF HTN HLD CAD PAF Parkinsons hypothyroidism hx of Breast CA s/p lumpectomy/RT/chemo s/p b/l TKR s/p Lt THR -- d/c Clindamycin, will start Unasyn for now -- DVT ruled out -- monitor vitals, pt afebrile/vitals currently stable -- Cardiology/Pulmonary following Will follow Thank you
[2020-07-01] MEDS: traMADol HCL 50 MG TABLET PO PRN (17:16)
[2020-07-01] MEDS: ACETAMINOPHEN 325 MG TABLET (FP) PO PRN (17:20)
[2020-07-01] MEDS: LIDOCAINE PATCH REMOVAL MC SCH (21:05)
[2020-07-01] MEDS ORDERED: ROSUVASTATIN CA 40 MG TABLET PO SCH (22:00)
[2020-07-02] MEDS: AMPICILLIN NA/SULBACTAM NA 3 GM in SODIUM CHLORIDE 100 ML IVPB SCH ×3 (01:07→17:07)
[2020-07-02] MEDS: traMADol HCL 50 MG TABLET PO PRN (03:53)
[2020-07-02] MEDS: LEVOTHYROXINE NA 50 MCG TABLET (FP) PO SCH (06:36)
[2020-07-02 07:27] LABS: BASO % 0.5 % (0-2.0); EOS % 5.7 % (0-4.5); HEMATOCRIT 30.3 % (32.4-45.2); HEMOGLOBIN 10.1 GM/dL (10.7-15.3); MCHC 33.4 g/dl (32.0-36.0); MEAN CELL VOLUME 92.8 fl (80-96); MEAN PLT VOLUME 8.9 fl (7.5-11.1); NEUT % 40.8 % (42.8-82.8); PLATELET COUNT 152 K/MM3 (134-434); RBC 3.26 M/mm3 (3.60-5.2); RDW 14.7 % (11.6-15.6)
--- NOTE | 2020-07-02 07:33 | PN ---
Progress Note, Physician Chief Complaint: weight unchanged Edema improved. TELE: NSR, PVCs, Couplets. History of Present Illness: cellulitis CHF PAF Non smoker - Current Medication List Current Medications: Active Medications Acetaminophen (Tylenol -) 650 mg PO Q6H PRN PRN Reason: PAIN LEVEL 6-10 Last Admin: 07/01/20 17:20 Dose: 650 mg Documented by: Albuterol/Ipratropium (Duoneb -) 1 amp NEB Q6H PRN PRN Reason: SHORTNESS OF BREATH Apixaban (Eliquis -) 5 mg PO BID [facility] Last Admin: 07/01/20 21:04 Dose: 5 mg Documented by: Ascorbic Acid (Vitamin C -) 500 mg PO DAILY [facility] Last Admin: 07/01/20 10:11 Dose: 500 mg Documented by: Budesonide/Formoterol Fumarate (Symbicort 80/4.5mcg -) 1 puff IH BID [facility] Last Admin: 07/01/20 21:05 Dose: 1 puff Documented by: Escitalopram Oxalate (Lexapro -) 20 mg PO DAILY [facility] Last Admin: 07/01/20 10:12 Dose: 20 mg Documented by: Ferrous Sulfate (Feosol -) 325 mg PO DAILY [facility] Last Admin: 07/01/20 10:11 Dose: 325 mg Documented by: Furosemide (Lasix Injection -) 40 mg IVPUSH DAILY [facility] Last Admin: 07/01/20 10:09 Dose: 40 mg Documented by: Ampicillin Sodium/Sulbactam (Sodium 3 gm/ Sodium Chloride) 100 mls @ 200 mls/hr IVPB Q8H-IV [facility] Last Admin: 07/02/20 01:07 Dose: 200 mls/hr Documented by: Levothyroxine Sodium (Synthroid -) 50 mcg PO DAILY@0700 [facility] Last Admin: 07/02/20 06:36 Dose: 50 mcg Documented by: Lidocaine (Lidoderm Patch -) 1 patch TP DAILY [facility] Last Admin: 07/01/20 12:49 Dose: 1 patch Documented by: Losartan Potassium (Cozaar -) 50 mg PO DAILY [facility] Last Admin: 07/01/20 10:11 Dose: 50 mg Documented by: Metoprolol Succinate (Toprol Xl -) 50 mg PO DAILY [facility] Last Admin: 07/01/20 10:11 Dose: 50 mg Documented by: Miscellaneous (Lidoderm Patch Removal) 1 each MC DAILY@2200 [facility] Last Admin: 07/01/20 21:05 Dose: 1 each Documented by: Multivitamins/Minerals/Vitamin C (Tab-A-Vit -) 1 tab PO DAILY [facility] Last Admin: 07/01/20 10:11 Dose: 1 tab Documented by: Pantoprazole Sodium (Protonix -) 40 mg PO DAILY [facility] Last Admin: 07/01/20 10:11 Dose: 40 mg Documented by: Pregabalin (Lyrica -) 150 mg PO BID [facility] Last Admin: 07/01/20 21:05 Dose: 150 mg Documented by: Rosuvastatin Calcium (Crestor -) 40 mg PO HS [facility] Last Admin: 07/01/20 21:04 Dose: 40 mg Documented by: Tramadol HCl (Ultram -) 50 mg PO Q6H PRN PRN Reason: PAIN LEVEL 6-10 Last Admin: 07/02/20 03:53 Dose: 50 mg Documented by: - Objective Vital Signs: Vital Signs Temperature 98 F 07/02/20 06:00 Pulse Rate 97 H 07/02/20 06:00 Respiratory Rate 18 07/02/20 06:00 Blood Pressure 98/55 L 07/02/20 06:00 O2 Sat by Pulse Oximetry (%) 96 07/02/20 06:00 Constitutional: Yes: No Distress, Calm Eyes: Yes: Conjunctiva Clear Cardiovascular: Yes: Regular Rate and Rhythm Respiratory: Yes: Rhonchi, Wheezes, Other (rales at right base) Gastrointestinal: Yes: Soft, Abdomen, Obese Edema: Yes Edema: LLE: 1+, RLE: 1+ Peripheral Pulses WNL: Yes Neurological: Yes: Alert, Oriented Labs: INR, PTT INR 1.36 (0.83-1.09) H 06/30/20 21:30 - ....Imaging EKG: Image Reviewed Assessment/Plan DATA: Echo here 02/2020: Moderate AR, normal biV fx IMP: PAF Acute on chronic diastolic CHF NSVT AR LE cellulitis HTN HLD Asthma REC: 1. PAF: -In sinus -Cont Eliquis and Toprol -Tele with rare VPCs 2. Acute on chronic diastolic CHF: -unclear precipitant, possibly infection/cellulitis -needs 2nd set cardiac enzymes, will order -Repeat echo -Agree with Lasix 40mg IV daily with daily weights and BMP to monitor renal fx; repeat BNP today -When euvolemic, consider ischemic evaluation with pharm MPI 3. NSVT: -Echo for EF -Cycle cardiac enzymes -Keep K+ and Mg2- >4 and 2 respectively; will replete Mg 4. AR: -moderate, with no LV dilatation 02/2020; repeat echo 5. LE cellulitis: improving -as per primary team 6. HTN: -BP soft, decrease losartan 25mg starting 07/03 7. HLD: -Outpatient f/u 8. Asthma: -Chronic, current picture more c/w decompensated CHF
[2020-07-02 07:42] LABS: CHLORIDE 104 mmol/L (98-107); POTASSIUM 4.1 mmol/L (3.5-5.1); SODIUM 141 mmol/L (136-145)
[2020-07-02 07:45] LABS: ALBUMIN 2.9 g/dl (3.4-5.0); ANION GAP 4 MMOL/L (8-16); CALCIUM 8.4 mg/dL (8.5-10.1); CO2 33 mmol/L (21-32)
[2020-07-02 07:46] LABS: BLOOD UREA NITROGEN 24.1 mg/dL (7-18); GLUCOSE,RANDOM 84 mg/dL (74-106)
[2020-07-02 07:48] LABS: MAGNESIUM 1.9 mg/dL (1.8-2.4)
[2020-07-02 07:49] LABS: CREATININE 0.8 mg/dL (0.55-1.3); SGOT/AST 16 U/L (15-37); SGPT/ALT 21 U/L (13-61)
[2020-07-02 07:50] LABS: BILIRUBIN,TOTAL 0.5 mg/dL (0.2-1); TOT PROT 5.5 g/dl (6.4-8.2)
[2020-07-02 07:52] LABS: ALK PHOS 45 U/L (45-117)
--- NOTE | 2020-07-02 08:11 | PN ---
Progress Note, Physician Chief Complaint: Seen and examined in bed. Leg edema and erythema improved from yesterday. Stated breathing is improved after the lasix. BP on lower side this am-losartan held. 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 She also endorses dyspnea with mild exertion such as walking up and down the stairs x several days. - Current Medication List Current Medications: Active Medications Acetaminophen (Tylenol -) 650 mg PO Q6H PRN PRN Reason: PAIN LEVEL 6-10 Last Admin: 07/01/20 17:20 Dose: 650 mg Documented by: Albuterol/Ipratropium (Duoneb -) 1 amp NEB Q6H PRN PRN Reason: SHORTNESS OF BREATH Apixaban (Eliquis -) 5 mg PO BID [facility] Last Admin: 07/01/20 21:04 Dose: 5 mg Documented by: Ascorbic Acid (Vitamin C -) 500 mg PO DAILY [facility] Last Admin: 07/01/20 10:11 Dose: 500 mg Documented by: Budesonide/Formoterol Fumarate (Symbicort 80/4.5mcg -) 1 puff IH BID [facility] Last Admin: 07/01/20 21:05 Dose: 1 puff Documented by: Escitalopram Oxalate (Lexapro -) 20 mg PO DAILY [facility] Last Admin: 07/01/20 10:12 Dose: 20 mg Documented by: Ferrous Sulfate (Feosol -) 325 mg PO DAILY [facility] Last Admin: 07/01/20 10:11 Dose: 325 mg Documented by: Furosemide (Lasix Injection -) 40 mg IVPUSH DAILY [facility] Last Admin: 07/01/20 10:09 Dose: 40 mg Documented by: Ampicillin Sodium/Sulbactam (Sodium 3 gm/ Sodium Chloride) 100 mls @ 200 mls/hr IVPB Q8H-IV [facility] Last Admin: 07/02/20 01:07 Dose: 200 mls/hr Documented by: Levothyroxine Sodium (Synthroid -) 50 mcg PO DAILY@0700 [facility] Last Admin: 07/02/20 06:36 Dose: 50 mcg Documented by: Lidocaine (Lidoderm Patch -) 1 patch TP DAILY [facility] Last Admin: 07/01/20 12:49 Dose: 1 patch Documented by: Losartan Potassium (Cozaar -) 50 mg PO DAILY [facility] Last Admin: 07/01/20 10:11 Dose: 50 mg Documented by: Metoprolol Succinate (Toprol Xl -) 50 mg PO DAILY [facility] Last Admin: 07/01/20 10:11 Dose: 50 mg Documented by: Miscellaneous (Lidoderm Patch Removal) 1 each MC DAILY@2200 [facility] Last Admin: 07/01/20 21:05 Dose: 1 each Documented by: Multivitamins/Minerals/Vitamin C (Tab-A-Vit -) 1 tab PO DAILY [facility] Last Admin: 07/01/20 10:11 Dose: 1 tab Documented by: Pantoprazole Sodium (Protonix -) 40 mg PO DAILY [facility] Last Admin: 07/01/20 10:11 Dose: 40 mg Documented by: Pregabalin (Lyrica -) 150 mg PO BID [facility] Last Admin: 07/01/20 21:05 Dose: 150 mg Documented by: Rosuvastatin Calcium (Crestor -) 40 mg PO HS [facility] Last Admin: 07/01/20 21:04 Dose: 40 mg Documented by: Tramadol HCl (Ultram -) 50 mg PO Q6H PRN PRN Reason: PAIN LEVEL 6-10 Last Admin: 07/02/20 03:53 Dose: 50 mg Documented by: - Objective Vital Signs: Vital Signs Temperature 98 F 07/02/20 06:00 Pulse Rate 97 H 07/02/20 06:00 Respiratory Rate 18 07/02/20 06:00 Blood Pressure 98/55 L 07/02/20 06:00 O2 Sat by Pulse Oximetry (%) 96 07/02/20 06:00 Additional Findings/Remarks: Constitutional: Yes: Well Nourished, No Distress, Calm Eyes: Yes: WNL, Conjunctiva Clear HENT: Yes: WNL, Atraumatic, Normocephalic Neck: Yes: WNL, Supple, Trachea Midline Cardiovascular: Yes: WNL, Regular Rate and Rhythm Respiratory: Yes: Regular, CTA Bilaterally, Diminished (at bases), On Nasal O2 (2L) Gastrointestinal: Yes: WNL, Normal Bowel Sounds, Soft, Abdomen, Obese ...Rectal Exam: Yes: Deferred Genitourinary: Yes: WNL Breast(s): Yes: WNL Musculoskeletal: Yes: WNL Extremities: Yes: WNL Edema: Yes Edema: RUE: 2+, LLE: 1+ Peripheral Pulses WNL: Yes Peripheral Pulses: Left Radial: 2+, Right Radial: 2+, Left Doralis Pedis: 2+, Right Dorsalis Pedis: 2+, Left Femoral: 2+, Right Femoral: 2+ Integumentary: Yes: Erythema (to LE, R>L) Neurological: Yes: WNL, Alert, Oriented ...Motor Strength: WNL Psychiatric: Yes: WNL Labs: CBC, BMP 07/02/20 05:46 07/02/20 05:46 INR, PTT INR 1.36 (0.83-1.09) H 06/30/20 21:30 Problem List - Problems (1) On home oxygen therapy Assessment/Plan: Supplemental O2 to maintain SPO2 >90% pulmonary consultation appreciated Code(s): Z99.81 - DEPENDENCE ON SUPPLEMENTAL OXYGEN (2) Parkinson disease Assessment/Plan: supportive care Code(s): G20 - PARKINSON'S DISEASE (3) S/p total knee replacement, bilateral Assessment/Plan: pain to L knee imprved with lidoderm patch c/w lidoderm PT Code(s): Z96.653 - PRESENCE OF ARTIFICIAL KNEE JOINT, BILATERAL (4) Hip joint replacement status Assessment/Plan: stable Code(s): Z96.649 - PRESENCE OF UNSPECIFIED ARTIFICIAL HIP JOINT (5) Leg swelling Assessment/Plan: improved acute on chronic diastolic heart failure BNP 822 c/w IV lasix daily weights, strict I/Os c/w unasyn for cellculitus Code(s): M79.89 - OTHER SPECIFIED SOFT TISSUE DISORDERS (6) Afib Assessment/Plan: rate controlled c/w metoprolol, apixaban cardiology consult appreciated Code(s): I48.91 - UNSPECIFIED ATRIAL FIBRILLATION Qualifiers: Atrial fibrillation type: chronic (7) Breast CA Assessment/Plan: stable Code(s): C50.919 - MALIGNANT NEOPLASM OF UNSP SITE OF UNSPECIFIED FEMALE BREAST (8) CAD (coronary artery disease) Assessment/Plan: c/w metoprolol, statin trop .02 x 2 Code(s): I25.10 - ATHSCL HEART DISEASE OF [place] CORONARY ARTERY W/O ANG PCTRS (9) HLD (hyperlipidemia) Assessment/Plan: c/w statin Code(s): E78.5 - HYPERLIPIDEMIA, UNSPECIFIED (10) HTN (hypertension) Assessment/Plan: bp on lower side, losartan held this am c/w losartan at lower dose in am 25mg Code(s): I10 - ESSENTIAL (PRIMARY) HYPERTENSION Qualifiers: Hypertension type: essential hypertension Qualified Code(s): I10 - Essential (primary) hypertension (11) Hypothyroid Assessment/Plan: c/w synthroid Code(s): E03.9 - HYPOTHYROIDISM, UNSPECIFIED (12) Acute on chronic diastolic (congestive) heart failure Assessment/Plan: BNP 822 c/w IV lasix daily weights, strict I/Os 03/02 TTE: EF 55%, mild MR EKG: Image Reviewed (nsr 62bpm, 1st degree AV block TELE: NSR, ST, PVC. 3 beat NSVT) Code(s): I50.33 - ACUTE ON CHRONIC DIASTOLIC (CONGESTIVE) HEART FAILURE (13) Chronic pain Assessment/Plan: pain to knees BL tramadol with tylenol prn lidoderm patch PT Code(s): G89.29 - OTHER CHRONIC PAIN (14) COVID-19 ruled out Assessment/Plan: neg pcr Code(s): Z03.818 - ENCNTR FOR OBS FOR SUSP EXPSR TO OTH BIOLG AGENTS RULED OUT (15) NSVT (nonsustained ventricular tachycardia) Assessment/Plan: history of Keep K+>4 and Mg>2.0 Mg 1.9 replete and monitor Code(s): I47.2 - VENTRICULAR TACHYCARDIA Visit type - Emergency Visit Emergency Visit: Yes ED Registration Date: 06/30/20 Care time: The patient presented to the Emergency Department on the above date and was hospitalized for further evaluation of their emergent condition. - New Patient This patient is new to me today: No - Critical Care Critical Care patient: No - Discharge Referral Referred to [facility] No - Medication Review Med list reviewed for High Risk Meds patients 65 and older: Yes
[2020-07-02] MEDS ORDERED: ESCITALOPRAM OXALATE 10 MG TABLET ONE (09:03)
[2020-07-02] MEDS: PANTOPRAZOLE 40 MG TABLET PO SCH (09:17)
[2020-07-02] MEDS: FERROUS SO4 325 MG TABLET (FP) PO SCH (09:17)
[2020-07-02] MEDS: ASCORBIC ACID 500 MG TABLET (FP) PO SCH (09:17)
[2020-07-02] MEDS: APIXABAN 5 MG TABLET PO SCH ×2 (09:17→21:22)
[2020-07-02] MEDS: LIDOCAINE 5% TOPICAL PATCH TP SCH (09:18)
[2020-07-02] MEDS: MULTIVITAMINS (DAILY MVI) TABLET (FP) PO SCH (09:18)
[2020-07-02] MEDS: ESCITALOPRAM OXALATE 20 MG TABLET PO SCH (09:18)
[2020-07-02] MEDS: PREGABALIN 75 MG CAPSULE PO SCH ×2 (09:18→21:22)
[2020-07-02] MEDS: BUDESONIDE/FORMETEROL FUMARATE 80/4.5 mcg INHALER IH SCH ×2 (09:20→22:34)
[2020-07-02] MEDS: FUROSEMIDE 40 MG/4 ML INJECTABLE VIAL IVPUSH SCH (09:20)
[2020-07-02] MEDS: MAGNESIUM OXIDE 400 MG TABLET (FP) PO SCH ×2 (11:21→21:22)
[2020-07-02 11:38] LABS: N-TERMINAL BNP 195.2 pg/ml (5-450)
--- NOTE | 2020-07-02 12:40 | PN ---
Progress Note (short form) - Note Progress Note: PULMONARY Denies shortness of breath but with occasional wheezing. Still with leg swelling. Vital Signs Period Temp Pulse Resp BP Sys/Bocanegra Pulse Ox Last 24 Hr 98 F-98.7 F 78-104 18-19 91-132/54-76 96-99 Gen: NAD at rest Herat: RRR Lung: decreased breath sounds at the bases Abd: soft, nontender Ext: no edema CBC, BMP 07/02/20 05:46 07/02/20 05:46 Active Medications Acetaminophen (Tylenol -) 650 mg PO Q6H PRN PRN Reason: PAIN LEVEL 6-10 Last Admin: 07/01/20 17:20 Dose: 650 mg Documented by: Albuterol/Ipratropium (Duoneb -) 1 amp NEB RQID [facility] Apixaban (Eliquis -) 5 mg PO BID [facility] Last Admin: 07/02/20 09:17 Dose: 5 mg Documented by: Ascorbic Acid (Vitamin C -) 500 mg PO DAILY [facility] Last Admin: 07/02/20 09:17 Dose: 500 mg Documented by: Budesonide/Formoterol Fumarate (Symbicort 80/4.5mcg -) 1 puff IH BID [facility] Last Admin: 07/02/20 09:20 Dose: 1 puff Documented by: Escitalopram Oxalate (Lexapro -) 20 mg PO DAILY [facility] Last Admin: 07/02/20 09:18 Dose: 20 mg Documented by: Ferrous Sulfate (Feosol -) 325 mg PO DAILY [facility] Last Admin: 07/02/20 09:17 Dose: 325 mg Documented by: Furosemide (Lasix Injection -) 40 mg IVPUSH DAILY [facility] Last Admin: 07/02/20 09:20 Dose: 40 mg Documented by: Ampicillin Sodium/Sulbactam (Sodium 3 gm/ Sodium Chloride) 100 mls @ 200 mls/hr IVPB Q8H-IV [facility] Last Admin: 07/02/20 09:36 Dose: 200 mls/hr Documented by: Levothyroxine Sodium (Synthroid -) 50 mcg PO DAILY@0700 [facility] Last Admin: 07/02/20 06:36 Dose: 50 mcg Documented by: Lidocaine (Lidoderm Patch -) 1 patch TP DAILY [facility] Last Admin: 07/02/20 09:18 Dose: 1 patch Documented by: Losartan Potassium (Cozaar -) 25 mg PO DAILY [facility] Magnesium Oxide (Mag-Ox -) 400 mg PO BID [facility] Stop: 07/04/20 23:59 Last Admin: 07/02/20 11:21 Dose: 400 mg Documented by: Metoprolol Succinate (Toprol Xl -) 50 mg PO DAILY [facility] Last Admin: 07/02/20 09:17 Dose: 50 mg Documented by: Miscellaneous (Lidoderm Patch Removal) 1 each MC DAILY@2200 [facility] Last Admin: 07/01/20 21:05 Dose: 1 each Documented by: Multivitamins/Minerals/Vitamin C (Tab-A-Vit -) 1 tab PO DAILY [facility] Last Admin: 07/02/20 09:18 Dose: 1 tab Documented by: Pantoprazole Sodium (Protonix -) 40 mg PO DAILY [facility] Last Admin: 07/02/20 09:17 Dose: 40 mg Documented by: Pregabalin (Lyrica -) 150 mg PO BID [facility] Last Admin: 07/02/20 09:18 Dose: 150 mg Documented by: Rosuvastatin Calcium (Crestor -) 40 mg PO [facility] Last Admin: 07/01/20 21:04 Dose: 40 mg Documented by: Tramadol HCl (Ultram -) 50 mg PO Q6H PRN PRN Reason: PAIN LEVEL 6-10 Last Admin: 07/02/20 03:53 Dose: 50 mg Documented by: A/P Acute on Chronic Diastolic Heart Failure Paroxysmal Atrial Fibrillation Aortic Regurgitation Asthma HTN Hyperlipidemia - will start inhaled bronchodilators - continue lasix - monitor urine output, creatinine - daily weights - O2 to keep SpO2 >90% - rate controlled - continue anticoagulation
[2020-07-02] MEDS: ALBUTEROL SO4 2.5/IPRATROPIUM 0.5 INH SOL 3 ML VIAL.NEB. NEB SCH ×2 (16:20→20:16)
--- NOTE | 2020-07-02 20:49 | PN ---
Progress Note, Physician History of Present Illness: Pt c/o leg pain. No acute distress. No SOB. - Current Medication List Current Medications: Active Medications Acetaminophen (Tylenol -) 650 mg PO Q6H PRN PRN Reason: PAIN LEVEL 6-10 Last Admin: 07/01/20 17:20 Dose: 650 mg Documented by: Albuterol/Ipratropium (Duoneb -) 1 amp NEB RQID [facility] Last Admin: 07/02/20 20:16 Dose: 1 amp Documented by: Apixaban (Eliquis -) 5 mg PO BID [facility] Last Admin: 07/02/20 09:17 Dose: 5 mg Documented by: Ascorbic Acid (Vitamin C -) 500 mg PO DAILY [facility] Last Admin: 07/02/20 09:17 Dose: 500 mg Documented by: Budesonide/Formoterol Fumarate (Symbicort 80/4.5mcg -) 1 puff IH BID [facility] Last Admin: 07/02/20 09:20 Dose: 1 puff Documented by: Escitalopram Oxalate (Lexapro -) 20 mg PO DAILY [facility] Last Admin: 07/02/20 09:18 Dose: 20 mg Documented by: Ferrous Sulfate (Feosol -) 325 mg PO DAILY [facility] Last Admin: 07/02/20 09:17 Dose: 325 mg Documented by: Ampicillin Sodium/Sulbactam (Sodium 3 gm/ Sodium Chloride) 100 mls @ 200 mls/hr IVPB Q8H-IV [facility] Last Admin: 07/02/20 17:07 Dose: 200 mls/hr Documented by: Levothyroxine Sodium (Synthroid -) 50 mcg PO DAILY@0700 [facility] Last Admin: 07/02/20 06:36 Dose: 50 mcg Documented by: Lidocaine (Lidoderm Patch -) 1 patch TP DAILY [facility] Last Admin: 07/02/20 09:18 Dose: 1 patch Documented by: Losartan Potassium (Cozaar -) 25 mg PO DAILY [facility] Magnesium Oxide (Mag-Ox -) 400 mg PO BID [facility] Stop: 07/04/20 23:59 Last Admin: 07/02/20 11:21 Dose: 400 mg Documented by: Metoprolol Succinate (Toprol Xl -) 50 mg PO DAILY [facility] Last Admin: 07/02/20 09:17 Dose: 50 mg Documented by: Miscellaneous (Lidoderm Patch Removal) 1 each MC DAILY@2200 [facility] Last Admin: 07/01/20 21:05 Dose: 1 each Documented by: Multivitamins/Minerals/Vitamin C (Tab-A-Vit -) 1 tab PO DAILY [facility] Last Admin: 07/02/20 09:18 Dose: 1 tab Documented by: Pantoprazole Sodium (Protonix -) 40 mg PO DAILY [facility] Last Admin: 07/02/20 09:17 Dose: 40 mg Documented by: Pregabalin (Lyrica -) 150 mg PO BID [facility] Last Admin: 07/02/20 09:18 Dose: 150 mg Documented by: Rosuvastatin Calcium (Crestor -) 40 mg PO HS [facility] Last Admin: 07/01/20 21:04 Dose: 40 mg Documented by: Tramadol HCl (Ultram -) 50 mg PO Q6H PRN PRN Reason: PAIN LEVEL 6-10 Last Admin: 07/02/20 03:53 Dose: 50 mg Documented by: - Objective Vital Signs: Vital Signs Temperature 98.2 F 07/02/20 13:54 Pulse Rate 98 H 07/02/20 13:54 Respiratory Rate 16 07/02/20 13:54 Blood Pressure 91/61 07/02/20 13:54 O2 Sat by Pulse Oximetry (%) 97 07/02/20 09:16 Constitutional: Yes: No Distress Cardiovascular: Yes: Regular Rate and Rhythm Respiratory: Yes: Regular Gastrointestinal: Yes: Normal Bowel Sounds, Soft, Abdomen, Obese Genitourinary: Yes: WNL Extremities: Yes: Erythema (RLE erythema/warmth/tenderness) Neurological: Yes: Alert Labs: CBC, BMP 07/02/20 05:46 07/02/20 05:46 INR, PTT INR 1.36 (0.83-1.09) H 06/30/20 21:30 Problem List - Problems (1) Acute on chronic diastolic (congestive) heart failure Code(s): I50.33 - ACUTE ON CHRONIC DIASTOLIC (CONGESTIVE) HEART FAILURE (2) Hip joint replacement status Code(s): Z96.649 - PRESENCE OF UNSPECIFIED ARTIFICIAL HIP JOINT (3) Leg swelling Code(s): M79.89 - OTHER SPECIFIED SOFT TISSUE DISORDERS (4) On home oxygen therapy Code(s): Z99.81 - DEPENDENCE ON SUPPLEMENTAL OXYGEN (5) Parkinson disease Code(s): G20 - PARKINSON'S DISEASE (6) S/p total knee replacement, bilateral Code(s): Z96.653 - PRESENCE OF ARTIFICIAL KNEE JOINT, BILATERAL (7) Atrial fibrillation Code(s): I48.91 - UNSPECIFIED ATRIAL FIBRILLATION (8) CAD (coronary artery disease) Code(s): I25.10 - ATHSCL HEART DISEASE OF [place] CORONARY ARTERY W/O ANG PCTRS (9) COPD (chronic obstructive pulmonary disease) Code(s): J44.9 - CHRONIC OBSTRUCTIVE PULMONARY DISEASE, UNSPECIFIED (10) Cellulitis Code(s): L03.90 - CELLULITIS, UNSPECIFIED (11) GERD (gastroesophageal reflux disease) Code(s): K21.9 - GASTRO-ESOPHAGEAL REFLUX DISEASE WITHOUT ESOPHAGITIS (12) HLD (hyperlipidemia) Code(s): E78.5 - HYPERLIPIDEMIA, UNSPECIFIED (13) HTN (hypertension) Code(s): I10 - ESSENTIAL (PRIMARY) HYPERTENSION Qualifiers: Hypertension type: essential hypertension Qualified Code(s): I10 - Esse ntial (primary) hypertension (14) History of breast cancer Code(s): Z85.3 - PERSONAL HISTORY OF MALIGNANT NEOPLASM OF BREAST Assessment/Plan RLE cellulitis b/l LE edema Acute on chronic CHF COPD on home O2 HTN HLD CAD PAF Parkinsons hypothyroidism hx of Breast CA s/p lumpectomy/RT/chemo s/p b/l TKR s/p Lt THR -- RLE still with erythema/warmth/tenderness - continue Unasyn -- LE edema improving -- monitor renal function pt afebrile
[2020-07-02] MEDS ORDERED: PT OWN MED DRAWER 7, Y5N ONE (21:17)
[2020-07-02] MEDS: ROSUVASTATIN CA 20 MG TABLET (FP) PO SCH (22:34)
[2020-07-02] MEDS: LIDOCAINE PATCH REMOVAL MC SCH (23:59)
[2020-07-03] MEDS ORDERED: PT OWN MED DRAWER 7, Y5N ONE ×3 (00:58→17:19)
[2020-07-03] MEDS: AMPICILLIN NA/SULBACTAM NA 3 GM in SODIUM CHLORIDE 100 ML IVPB SCH ×3 (01:01→17:37)
[2020-07-03] MEDS: LEVOTHYROXINE NA 50 MCG TABLET (FP) PO SCH (06:06)
[2020-07-03 07:03] LABS: BASO % 0.4 % (0-2.0); EOS % 5.2 % (0-4.5); HEMATOCRIT 31.1 % (32.4-45.2); HEMOGLOBIN 10.3 GM/dL (10.7-15.3); LYMPH % 34.5 % (8-40); MCH 30.8 pg (25.7-33.7); MCHC 33.2 g/dl (32.0-36.0); MEAN CELL VOLUME 92.5 fl (80-96); MEAN PLT VOLUME 8.7 fl (7.5-11.1); MONO % 12.8 % (3.8-10.2); NEUT % 47.1 % (42.8-82.8); PLATELET COUNT 154 K/MM3 (134-434); RBC 3.36 M/mm3 (3.60-5.2); WHITE BLOOD COUNT 4.2 K/mm3 (4.0-10.0)
[2020-07-03 07:14] LABS: POTASSIUM 3.9 mmol/L (3.5-5.1)
[2020-07-03 07:16] LABS: CALCIUM 8.3 mg/dL (8.5-10.1)
[2020-07-03 07:17] LABS: BLOOD UREA NITROGEN 21.9 mg/dL (7-18); MAGNESIUM 2.1 mg/dL (1.8-2.4)
[2020-07-03 07:20] LABS: CREATININE 0.7 mg/dL (0.55-1.3)
[2020-07-03 07:22] LABS: BILIRUBIN,TOTAL 0.4 mg/dL (0.2-1); TOT PROT 5.8 g/dl (6.4-8.2)
[2020-07-03] MEDS: ALBUTEROL SO4 2.5/IPRATROPIUM 0.5 INH SOL 3 ML VIAL.NEB. NEB SCH ×4 (07:25→20:10)
[2020-07-03] MEDS ORDERED: ESCITALOPRAM OXALATE 10 MG TABLET ONE (08:58)
[2020-07-03] MEDS: PANTOPRAZOLE 40 MG TABLET PO SCH (09:09)
[2020-07-03] MEDS: ASCORBIC ACID 500 MG TABLET (FP) PO SCH (09:09)
[2020-07-03] MEDS: APIXABAN 5 MG TABLET PO SCH ×2 (09:09→21:25)
[2020-07-03] MEDS: MAGNESIUM OXIDE 400 MG TABLET (FP) PO SCH ×2 (09:09→21:25)
[2020-07-03] MEDS: LOSARTAN POTASSIUM 25 MG TABLET PO SCH (09:09)
[2020-07-03] MEDS: FERROUS SO4 325 MG TABLET (FP) PO SCH (09:10)
[2020-07-03] MEDS: PREGABALIN 75 MG CAPSULE PO SCH ×2 (09:10→21:24)
[2020-07-03] MEDS: ESCITALOPRAM OXALATE 20 MG TABLET PO SCH (09:10)
[2020-07-03] MEDS: MULTIVITAMINS (DAILY MVI) TABLET (FP) PO SCH (09:10)
[2020-07-03] MEDS: LIDOCAINE 5% TOPICAL PATCH TP SCH (09:10)
[2020-07-03] MEDS: BUDESONIDE/FORMETEROL FUMARATE 80/4.5 mcg INHALER IH SCH ×2 (09:11→21:25)
--- NOTE | 2020-07-03 10:44 | EKG ---
Test Reason : Blood Pressure : / mmHG Vent. Rate : 062 BPM Atrial Rate : 062 BPM P-R Int : 236 ms QRS Dur : 094 ms QT Int : 436 ms P-R-T Axes : 060 -03 050 degrees QTc Int : 442 ms SINUS RHYTHM WITH 1ST DEGREE A-V BLOCK OTHERWISE NORMAL ECG WHEN COMPARED WITH ECG OF 01-MAR-2020 14:24, PREMATURE VENTRICULAR COMPLEXES ARE NO LONGER PRESENT VENT. RATE HAS DECREASED BY 31 BPM QT HAS SHORTENED Confirmed by TORRIE GRULLON MD ([id number]) on 07/03/2020 10:44:03 AM Referred By: Confirmed By:TORRIE GRULLON MD
--- NOTE | 2020-07-03 12:03 | PN ---
Progress Note (short form) - Note Progress Note: Chief Complaint: sob, cough s: no cp palps dizzy; still with mild sob and productive cough Current Medications Generic Name Dose Route Start Last Admin Trade Name Freq PRN Reason Stop Dose Admin Acetaminophen 650 mg 07/01/20 15:46 07/01/20 17:20 Tylenol - PO 650 mg Q6H PRN Administration PAIN LEVEL 6-10 Albuterol/Ipratropium 1 amp 07/02/20 16:00 07/03/20 11:46 Duoneb - NEB 1 amp RQID NICOLE Administration Apixaban 5 mg 07/01/20 10:00 07/03/20 09:09 Eliquis - PO 5 mg BID NICOLE Administration Ascorbic Acid 500 mg 07/01/20 10:00 07/03/20 09:09 Vitamin C - PO 500 mg DAILY NICOLE Administration Budesonide/Formoterol Fumarate 1 puff 07/01/20 10:00 07/03/20 09:11 Symbicort 80/4.5mcg - IH 1 puff BID NICOLE Administration Escitalopram Oxalate 20 mg 07/01/20 10:00 07/03/20 09:10 Lexapro - PO 20 mg DAILY NICOLE Administration Ferrous Sulfate 325 mg 07/01/20 10:00 07/03/20 09:10 Feosol - PO 325 mg DAILY NICOLE Administration Ampicillin Sodium/Sulbactam 100 mls @ 200 mls/hr 07/02/20 02:00 07/03/20 01:01 Sodium 3 gm/ Sodium Chloride IVPB 200 mls/hr Q8H-IV NICOLE Administration Levothyroxine Sodium 50 mcg 07/01/20 10:00 07/03/20 06:06 Synthroid - PO 50 mcg DAILY@0700 NICOLE Administration Lidocaine 1 patch 07/01/20 11:15 07/03/20 09:10 Lidoderm Patch - TP 1 patch DAILY NICOLE Administration Losartan Potassium 25 mg 07/03/20 10:00 07/03/20 09:09 Cozaar - PO 25 mg DAILY NICOLE Administration Magnesium Oxide 400 mg 07/02/20 10:15 07/03/20 09:09 Mag-Ox - PO 07/04/20 23:59 400 mg BID NICOLE Administration Metoprolol Succinate 50 mg 07/01/20 10:00 07/03/20 09:09 Toprol Xl - PO 50 mg DAILY NICOLE Administration Miscellaneous 1 each 07/01/20 22:00 07/02/20 23:59 Lidoderm Patch Removal MC Not Given DAILY@2200 [facility] Multivitamins/Minerals/Vitamin C 1 tab 07/01/20 10:00 07/03/20 09:10 Tab-A-Vit - PO 1 tab DAILY NICOLE Administration Pantoprazole Sodium 40 mg 07/01/20 10:00 07/03/20 09:09 Protonix - PO 40 mg DAILY NICOLE Administration Pregabalin 150 mg 07/01/20 10:00 07/03/20 09:10 Lyrica - PO 150 mg BID NICOLE Administration Rosuvastatin Calcium 40 mg 07/02/20 21:27 07/02/20 22:34 Crestor - PO 40 mg HS NICOLE Administration Tramadol HCl 50 mg 07/01/20 15:45 07/02/20 03:53 Ultram - PO 50 mg Q6H PRN Administration PAIN LEVEL 6-10 Vital Signs Period Temp Pulse Resp BP Sys/Bocanegra Pulse Ox Last 24 Hr 97.6 F-98.2 F 83-102 16-20 91-113/52-67 94-98 Constitutional: Yes: No Distress, Calm Eyes: Yes: Conjunctiva Clear Cardiovascular: Yes: Regular Rate and Rhythm Respiratory: Yes: bl wheeze and rhonchi, nl eff Gastrointestinal: Yes: Soft, Abdomen, Obese Edema:trace le edema bl Peripheral Pulses WNL: Yes Neurological: Yes: Alert, Oriented no jaundice diaphoresis Labs: Laboratory Last Values WBC 4.2 K/mm3 (4.0-10.0) 07/03/20 05:58 RBC 3.36 M/mm3 (3.60-5.2) L 07/03/20 05:58 Hgb 10.3 GM/dL (10.7-15.3) L 07/03/20 05:58 Hct 31.1 % (32.4-45.2) L 07/03/20 05:58 MCV 92.5 fl (80-96) 07/03/20 05:58 MCH 30.8 pg (25.7-33.7) 07/03/20 05:58 MCHC 33.2 g/dl (32.0-36.0) 07/03/20 05:58 RDW 15.0 % (11.6-15.6) 07/03/20 05:58 Plt Count 154 K/MM3 (134-434) 07/03/20 05:58 MPV 8.7 fl (7.5-11.1) 07/03/20 05:58 Absolute Neuts (auto) 2.0 K/mm3 (1.5-8.0) 07/03/20 05:58 Neutrophils % 47.1 % (42.8-82.8) 07/03/20 05:58 Lymphocytes % 34.5 % (8-40) 07/03/20 05:58 Monocytes % 12.8 % (3.8-10.2) H 07/03/20 05:58 Eosinophils % 5.2 % (0-4.5) H 07/03/20 05:58 Basophils % 0.4 % (0-2.0) 07/03/20 05:58 Nucleated RBC % 0 % (0-0) 07/03/20 05:58 Retic Count 2.24 % (0.5-1.5) H 07/01/20 05:39 PT with INR 16.30 SEC (9.7-13.0) H 06/30/20 21:30 INR 1.36 (0.83-1.09) H 06/30/20 21:30 PTT (Actin FS) 33.0 SECONDS (25.2-36.5) 06/30/20 21:30 Sodium 142 mmol/L (136-145) 07/03/20 05:58 Potassium 3.9 mmol/L (3.5-5.1) 07/03/20 05:58 Chloride 105 mmol/L (98-107) 07/03/20 05:58 Carbon Dioxide 34 mmol/L (21-32) H 07/03/20 05:58 Anion Gap 4 MMOL/L (8-16) L 07/03/20 05:58 BUN 21.9 mg/dL (7-18) H 07/03/20 05:58 Creatinine 0.7 mg/dL (0.55-1.3) 07/03/20 05:58 Est GFR (CKD-EPI)AfAm 94.18 07/03/20 05:58 Est GFR (CKD-EPI)NonAf 81.26 07/03/20 05:58 Random Glucose 93 mg/dL (74-106) 07/03/20 05:58 Calcium 8.3 mg/dL (8.5-10.1) L 07/03/20 05:58 Phosphorus 3.8 mg/dL (2.5-4.9) 07/01/20 05:39 Magnesium 2.1 mg/dL (1.8-2.4) 07/03/20 05:58 Ferritin 380.2 ng/ml (8-388) 07/01/20 05:39 Total Bilirubin 0.4 mg/dL (0.2-1) 07/03/20 05:58 AST 14 U/L (15-37) L 07/03/20 05:58 ALT 22 U/L (13-61) 07/03/20 05:58 Alkaline Phosphatase 47 U/L (45-117) 07/03/20 05:58 Creatine Kinase 82 U/L (26-192) 07/02/20 05:46 Troponin I < 0.02 ng/ml (0.00-0.05) 07/02/20 05:46 B-Natriuretic Peptide 195.2 pg/ml (5-450) 07/02/20 05:46 Total Protein 5.8 g/dl (6.4-8.2) L 07/03/20 05:58 Albumin 3.0 g/dl (3.4-5.0) L 07/03/20 05:58 TSH 2.18 uIU/ml (0.358-3.74) 07/01/20 05:39 Urine Color Yellow 07/01/20 00:20 Urine Appearance Clear 07/01/20 00:20 Urine pH 7.0 (5.0-8.0) D 07/01/20 00:20 Ur Specific [place] 1.006 (1.010-1.035) L 07/01/20 00:20 Urine Protein Negative (NEGATIVE) 07/01/20 00:20 Urine Glucose (UA) Negative (NEGATIVE) 07/01/20 00:20 Urine Ketones Negative (NEGATIVE) 07/01/20 00:20 Urine Blood Trace (NEGATIVE) 07/01/20 00:20 Urine Nitrite Negative (NEGATIVE) 07/01/20 00:20 Urine Bilirubin Negative (NEGATIVE) 07/01/20 00:20 Urine Urobilinogen 0.2 mg/dL (0.2-1.0) 07/01/20 00:20 Ur Leukocyte Esterase Negative (NEGATIVE) 07/01/20 00:20 Urine WBC (Auto) 5 /uL (0-25.8) 07/01/20 00:20 Urine RBC (Auto) 24 /uL (0-23.9) 07/01/20 00:20 Urine Casts (Auto) 0 /uL (0-3.1) 07/01/20 00:20 U Epithel Cells (Auto) 1 /uL (0-25.1) 07/01/20 00:20 Urine Bacteria (Auto) 9 /uL (0-1359) 07/01/20 00:20 COVID-19 (REGGIE) Not detected (Not Detected) 07/01/20 05:42 - ....Imaging EKG: Image Reviewed tele: sr, rate controlled afib echo here 02/2020: Moderate AR, normal biV fx IMP: PAF Acute on chronic diastolic CHF NSVT AR LE cellulitis HTN HLD Asthma REC: 1. PAF: -stabe, cont Eliquis and Toprol 2. Acute on chronic diastolic CHF: -unclear precipitant, possibly infection/cellulitis -no signs acs -Repeat echo -vol improved after several doses of iv lasix, held due to rising bun, low bp -when resp status improves consider ischemic evaluation with pharm MPI 3. NSVT: -Echo for EF -Keep K+ and Mg2- >4 and 2 respectively 4. AR: -moderate, with no LV dilatation 02/2020; repeat echo 5. LE cellulitis: improving -as per primary team 6. HTN: -BP soft, decreased losartan 25mg starting 07/03 7. HLD: -stable, outpatient f/u 8. Asthma: -has wheezing and productive cough, plans per pulm
--- NOTE | 2020-07-03 12:27 | ECHO ---
Name: JUNITO DUPREE Exam:Adult Echocardiogram Study Date: 07/03/2020 10:01 AM Age: 80 yrs Reason For Study: LV Function Height: 60 in Weight: 180 lb BSA: 1.8 m2 MMode/2D Measurements & Calculations IVSd: 1.0 cm Ao root diam: 2.4 cm LVIDd: 4.8 cm LA dimension: 4.7 cm LVIDs: 3.3 cm LVPWd: 0.98 cm EDV(Teich): 108.7 ml LVOT diam: 2.0 cm ESV(Teich): 44.3 ml LAV (MOD-bp): 73.0 ml RV S Liban: 11.9 cm/sec Doppler Measurements & Calculations MV E max liban: 90.0 cm/sec Ao V2 max: 182.9 cm/sec MV A max liban: 98.3 cm/sec Ao max P.4 mmHg MV E/A: 0.92 AI P1/2t: 482.5 msec MV dec time: 0.11 sec TESSIE(V,D): 1.4 cm2 AI max liban: 389.8 cm/sec LV V1 max P.7 mmHg AI max P.9 mmHg LV V1 max: 80.5 cm/sec AI dec slope: 236.6 cm/sec2 MR max liban: 398.8 cm/sec PA V2 max: 156.9 cm/sec MR max P.9 mmHg PA max P.8 mmHg Med Peak E' Liban: 6.0 cm/sec PI Vmax: 119.1 cm/sec Med E/e': 15.0 Lat Peak E' Liban: 16.9 cm/sec Lat E/e': 5.3 Procedure A complete two-dimensional transthoracic echocardiogram was performed (2D, M-mode, Doppler and color flow Doppler). Technically limited study. Left Ventricle The left ventricle is normal in size. Left ventricular systolic function is normal. Ejection Fraction = 55- 60%. No regional wall motion abnormalities noted. Right Ventricle The right ventricle is normal size. The right ventricular systolic function is normal. Atria The left atrium is mildly dilated. Right atrial size is normal. Mitral Valve There is mild mitral annular calcification. There is mild mitral regurgitation. Tricuspid Valve The tricuspid valve is normal in structure and function. No tricuspid regurgitation. Aortic Valve There is mild aortic sclerosis.;. Mild aortic regurgitation. Pulmonic Valve The pulmonic valve is not well visualized. Great Vessels The aortic root is normal size. Pericardium/Pleura There is no pericardial effusion. Interpretation Summary Technically limited study The left ventricle is normal in size. Left ventricular systolic function is normal. No regional wall motion abnormalities noted. Ejection Fraction = 55-60%. The left atrium is mildly dilated. There is mild mitral annular calcification. There is mild mitral regurgitation. There is mild aortic sclerosis. Mild aortic regurgitation. There is no pericardial effusion. Evelio Chery MD 07/03/2020 12:27 PM
--- NOTE | 2020-07-03 13:26 | PN ---
Progress Note, Physician History of Present Illness: stable leg improving - Current Medication List Current Medications: Active Medications Acetaminophen (Tylenol -) 650 mg PO Q6H PRN PRN Reason: PAIN LEVEL 6-10 Last Admin: 07/01/20 17:20 Dose: 650 mg Documented by: Albuterol/Ipratropium (Duoneb -) 1 amp NEB RQID [facility] Last Admin: 07/03/20 11:46 Dose: 1 amp Documented by: Apixaban (Eliquis -) 5 mg PO BID [facility] Last Admin: 07/03/20 09:09 Dose: 5 mg Documented by: Ascorbic Acid (Vitamin C -) 500 mg PO DAILY [facility] Last Admin: 07/03/20 09:09 Dose: 500 mg Documented by: Budesonide/Formoterol Fumarate (Symbicort 80/4.5mcg -) 1 puff IH BID [facility] Last Admin: 07/03/20 09:11 Dose: 1 puff Documented by: Escitalopram Oxalate (Lexapro -) 20 mg PO DAILY [facility] Last Admin: 07/03/20 09:10 Dose: 20 mg Documented by: Ferrous Sulfate (Feosol -) 325 mg PO DAILY [facility] Last Admin: 07/03/20 09:10 Dose: 325 mg Documented by: Ampicillin Sodium/Sulbactam (Sodium 3 gm/ Sodium Chloride) 100 mls @ 200 mls/hr IVPB Q8H-IV [facility] Last Admin: 07/03/20 12:10 Dose: 200 mls/hr Documented by: Levothyroxine Sodium (Synthroid -) 50 mcg PO DAILY@0700 [facility] Last Admin: 07/03/20 06:06 Dose: 50 mcg Documented by: Lidocaine (Lidoderm Patch -) 1 patch TP DAILY [facility] Last Admin: 07/03/20 09:10 Dose: 1 patch Documented by: Losartan Potassium (Cozaar -) 25 mg PO DAILY [facility] Last Admin: 07/03/20 09:09 Dose: 25 mg Documented by: Magnesium Oxide (Mag-Ox -) 400 mg PO BID [facility] Stop: 07/04/20 23:59 Last Admin: 07/03/20 09:09 Dose: 400 mg Documented by: Metoprolol Succinate (Toprol Xl -) 50 mg PO DAILY [facility] Last Admin: 07/03/20 09:09 Dose: 50 mg Documented by: Miscellaneous (Lidoderm Patch Removal) 1 each MC DAILY@2200 [facility] Last Admin: 07/02/20 23:59 Dose: Not Given Documented by: Multivitamins/Minerals/Vitamin C (Tab-A-Vit -) 1 tab PO DAILY [facility] Last Admin: 07/03/20 09:10 Dose: 1 tab Documented by: Pantoprazole Sodium (Protonix -) 40 mg PO DAILY [facility] Last Admin: 07/03/20 09:09 Dose: 40 mg Documented by: Pregabalin (Lyrica -) 150 mg PO BID [facility] Last Admin: 07/03/20 09:10 Dose: 150 mg Documented by: Rosuvastatin Calcium (Crestor -) 40 mg PO HS [facility] Last Admin: 07/02/20 22:34 Dose: 40 mg Documented by: Tramadol HCl (Ultram -) 50 mg PO Q6H PRN PRN Reason: PAIN LEVEL 6-10 Last Admin: 07/02/20 03:53 Dose: 50 mg Documented by: - Objective Vital Signs: Vital Signs Temperature 98.2 F 07/03/20 09:06 Pulse Rate 93 H 07/03/20 09:06 Respiratory Rate 19 07/03/20 09:06 Blood Pressure 113/66 07/03/20 09:06 O2 Sat by Pulse Oximetry (%) 94 L 07/03/20 09:06 Constitutional: Yes: No Distress, Calm Cardiovascular: Yes: S1, S2 Respiratory: Yes: Regular, CTA Bilaterally Gastrointestinal: Yes: Normal Bowel Sounds, Soft Musculoskeletal: Yes: Other Extremities: Yes: Erythema (improving) Neurological: Yes: Alert, Oriented Psychiatric: Yes: Alert, Oriented Labs: CBC, BMP 07/03/20 05:58 07/03/20 05:58 INR, PTT INR 1.36 (0.83-1.09) H 06/30/20 21:30 Assessment/Plan Problem List - Problems (1) Acute on chronic diastolic (congestive) heart failure Code(s): I50.33 - ACUTE ON CHRONIC DIASTOLIC (CONGESTIVE) HEART FAILURE (2) Hip joint replacement status Code(s): Z96.649 - PRESENCE OF UNSPECIFIED ARTIFICIAL HIP JOINT (3) Leg swelling Code(s): M79.89 - OTHER SPECIFIED SOFT TISSUE DISORDERS (4) On home oxygen therapy Code(s): Z99.81 - DEPENDENCE ON SUPPLEMENTAL OXYGEN (5) Parkinson disease Code(s): G20 - PARKINSON'S DISEASE (6) S/p total knee replacement, bilateral Code(s): Z96.653 - PRESENCE OF ARTIFICIAL KNEE JOINT, BILATERAL (7) Atrial fibrillation Code(s): I48.91 - UNSPECIFIED ATRIAL FIBRILLATION (8) CAD (coronary artery disease) Code(s): I25.10 - ATHSCL HEART DISEASE OF [place] CORONARY ARTERY W/O ANG PCTRS (9) COPD (chronic obstructive pulmonary disease) Code(s): J44.9 - CHRONIC OBSTRUCTIVE PULMONARY DISEASE, UNSPECIFIED (10) Cellulitis Code(s): L03.90 - CELLULITIS, UNSPECIFIED (11) GERD (gastroesophageal reflux disease) Code(s): K21.9 - GASTRO-ESOPHAGEAL REFLUX DISEASE WITHOUT ESOPHAGITIS (12) HLD (hyperlipidemia) Code(s): E78.5 - HYPERLIPIDEMIA, UNSPECIFIED (13) HTN (hypertension) Code(s): I10 - ESSENTIAL (PRIMARY) HYPERTENSION Qualifiers: Hypertension type: essential hypertension Qualified Code(s): I10 - Essential (primary) hypertension (14) History of breast cancer Code(s): Z85.3 - PERSONAL HISTORY OF MALIGNANT NEOPLASM OF BREAST Assessment/Plan RLE cellulitis b/l LE edema Acute on chronic CHF COPD on home O2 HTN HLD CAD PAF Parkinsons hypothyroidism hx of Breast CA s/p lumpectomy/RT/chemo s/p b/l TKR s/p Lt THR plan continue abx elevation of the legs
--- NOTE | 2020-07-03 13:32 | PN ---
Progress Note, Physician Chief Complaint: Seen and examined in chair Leg edema improved , mild erythema Breathing is improved after the lasix. BP improved. 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 She also endorses dyspnea with mild exertion such as walking up and down the stairs x several days. - Current Medication List Current Medications: Active Medications Acetaminophen (Tylenol -) 650 mg PO Q6H PRN PRN Reason: PAIN LEVEL 6-10 Last Admin: 07/01/20 17:20 Dose: 650 mg Documented by: Albuterol/Ipratropium (Duoneb -) 1 amp NEB RQID [facility] Last Admin: 07/03/20 11:46 Dose: 1 amp Documented by: Apixaban (Eliquis -) 5 mg PO BID [facility] Last Admin: 07/03/20 09:09 Dose: 5 mg Documented by: Ascorbic Acid (Vitamin C -) 500 mg PO DAILY [facility] Last Admin: 07/03/20 09:09 Dose: 500 mg Documented by: Budesonide/Formoterol Fumarate (Symbicort 80/4.5mcg -) 1 puff IH BID [facility] Last Admin: 07/03/20 09:11 Dose: 1 puff Documented by: Escitalopram Oxalate (Lexapro -) 20 mg PO DAILY [facility] Last Admin: 07/03/20 09:10 Dose: 20 mg Documented by: Ferrous Sulfate (Feosol -) 325 mg PO DAILY [facility] Last Admin: 07/03/20 09:10 Dose: 325 mg Documented by: Ampicillin Sodium/Sulbactam (Sodium 3 gm/ Sodium Chloride) 100 mls @ 200 mls/hr IVPB Q8H-IV [facility] Last Admin: 07/03/20 12:10 Dose: 200 mls/hr Documented by: Levothyroxine Sodium (Synthroid -) 50 mcg PO DAILY@0700 [facility] Last Admin: 07/03/20 06:06 Dose: 50 mcg Documented by: Lidocaine (Lidoderm Patch -) 1 patch TP DAILY [facility] Last Admin: 07/03/20 09:10 Dose: 1 patch Documented by: Losartan Potassium (Cozaar -) 25 mg PO DAILY [facility] Last Admin: 07/03/20 09:09 Dose: 25 mg Documented by: Magnesium Oxide (Mag-Ox -) 400 mg PO BID [facility] Stop: 07/04/20 23:59 Last Admin: 07/03/20 09:09 Dose: 400 mg Documented by: Metoprolol Succinate (Toprol Xl -) 50 mg PO DAILY [facility] Last Admin: 07/03/20 09:09 Dose: 50 mg Documented by: Miscellaneous (Lidoderm Patch Removal) 1 each MC DAILY@2200 [facility] Last Admin: 07/02/20 23:59 Dose: Not Given Documented by: Multivitamins/Minerals/Vitamin C (Tab-A-Vit -) 1 tab PO DAILY [facility] Last Admin: 07/03/20 09:10 Dose: 1 tab Documented by: Pantoprazole Sodium (Protonix -) 40 mg PO DAILY [facility] Last Admin: 07/03/20 09:09 Dose: 40 mg Documented by: Pregabalin (Lyrica -) 150 mg PO BID [facility] Last Admin: 07/03/20 09:10 Dose: 150 mg Documented by: Rosuvastatin Calcium (Crestor -) 40 mg PO HS [facility] Last Admin: 07/02/20 22:34 Dose: 40 mg Documented by: Tramadol HCl (Ultram -) 50 mg PO Q6H PRN PRN Reason: PAIN LEVEL 6-10 Last Admin: 07/02/20 03:53 Dose: 50 mg Documented by: - Objective Vital Signs: Vital Signs Temperature 98.2 F 07/03/20 09:06 Pulse Rate 93 H 07/03/20 09:06 Respiratory Rate 19 07/03/20 09:06 Blood Pressure 113/66 07/03/20 09:06 O2 Sat by Pulse Oximetry (%) 94 L 07/03/20 09:06 Additional Findings/Remarks: Constitutional: Yes: Well Nourished, No Distress, Calm Eyes: Yes: WNL, Conjunctiva Clear HENT: Yes: WNL, Atraumatic, Normocephalic Neck: Yes: WNL, Supple, Trachea Midline Cardiovascular: Yes: WNL, Regular Rate and Rhythm Respiratory: Yes: Regular, CTA Bilaterally, Diminished (at bases), On Nasal O2 (2L) Gastrointestinal: Yes: WNL, Normal Bowel Sounds, Soft, Abdomen, Obese ...Rectal Exam: Yes: Deferred Genitourinary: Yes: WNL Breast(s): Yes: WNL Musculoskeletal: Yes: WNL Extremities: Yes: WNL Edema: Yes Edema: RUE: 2+, LLE: 1+ Peripheral Pulses WNL: Yes Peripheral Pulses: Left Radial: 2+, Right Radial: 2+, Left Doralis Pedis: 2+, Right Dorsalis Pedis: 2+, Left Femoral: 2+, Right Femoral: 2+ Integumentary: Yes: Erythema (to LE, R>L) Neurological: Yes: WNL, Alert, Oriented ...Motor Strength: WNL Psychiatric: Yes: WNL Labs: CBC, BMP 07/03/20 05:58 07/03/20 05:58 INR, PTT INR 1.36 (0.83-1.09) H 06/30/20 21:30 Problem List - Problems (1) On home oxygen therapy Assessment/Plan: Supplemental O2 to maintain SPO2 >90% pulmonary consultation appreciated Code(s): Z99.81 - DEPENDENCE ON SUPPLEMENTAL OXYGEN (2) Parkinson disease Assessment/Plan: supportive care Code(s): G20 - PARKINSON'S DISEASE (3) S/p total knee replacement, bilateral Assessment/Plan: c/w lidoderm PT Code(s): Z96.653 - PRESENCE OF ARTIFICIAL KNEE JOINT, BILATERAL (4) Hip joint replacement status Assessment/Plan: stable Code(s): Z96.649 - PRESENCE OF UNSPECIFIED ARTIFICIAL HIP JOINT (5) Leg swelling Assessment/Plan: improved acute on chronic diastolic heart failure BNP 822 c/w IV lasix daily weights, strict I/Os c/w unasyn for cellulitis Code(s): M79.89 - OTHER SPECIFIED SOFT TISSUE DISORDERS (6) Afib Assessment/Plan: rate controlled c/w metoprolol, apixaban cardiology consult appreciated Code(s): I48.91 - UNSPECIFIED ATRIAL FIBRILLATION Qualifiers: Atrial fibrillation type: chronic (7) Breast CA Assessment/Plan: stable Code(s): C50.919 - MALIGNANT NEOPLASM OF UNSP SITE OF UNSPECIFIED FEMALE BREAST (8) CAD (coronary artery disease) Assessment/Plan: c/w metoprolol, statin trop .02 x 2 TTE: mild MR, EF 55-60% Code(s): I25.10 - ATHSCL HEART DISEASE OF [place] CORONARY ARTERY W/O ANG PCTRS (9) HLD (hyperlipidemia) Assessment/Plan: c/w statin Code(s): E78.5 - HYPERLIPIDEMIA, UNSPECIFIED (10) HTN (hypertension) Assessment/Plan: bp improved c/w losartan at lower dose Code(s): I10 - ESSENTIAL (PRIMARY) HYPERTENSION Qualifiers: Hypertension type: essential hypertension Qualified Code(s): I10 - Essential (primary) hypertension (11) Hypothyroid Assessment/Plan: c/w synthroid Code(s): E03.9 - HYPOTHYROIDISM, UNSPECIFIED (12) Acute on chronic diastolic (congestive) heart failure Assessment/Plan: BNP 822 c/w IV lasix daily weights, strict I/Os 07/03 TTE: EF 55-60%, mild MR/ unchanged from 03/02 EKG: Image Reviewed (nsr 62bpm, 1st degree AV block TELE: NSR, ST, PVC. 3 beat NSVT) Code(s): I50.33 - ACUTE ON CHRONIC DIASTOLIC (CONGESTIVE) HEART FAILURE (13) Chronic pain Assessment/Plan: pain to knees BL tramadol with tylenol prn lidoderm patch PT Code(s): G89.29 - OTHER CHRONIC PAIN (14) COVID-19 ruled out Assessment/Plan: neg pcr Code(s): Z03.818 - ENCNTR FOR OBS FOR SUSP EXPSR TO OTH BIOLG AGENTS RULED OUT (15) NSVT (nonsustained ventricular tachycardia) Assessment/Plan: history of Keep K+>4 and Mg>2.0 Code(s): I47.2 - VENTRICULAR TACHYCARDIA Visit type - Emergency Visit Emergency Visit: Yes ED Registration Date: 06/30/20 Care time: The patient presented to the Emergency Department on the above date and was hospitalized for further evaluation of their emergent condition. - New Patient This patient is new to me today: No - Critical Care Critical Care patient: No - Discharge Referral Referred to [facility] Med [facility].C[facility] No - Medication Review Med list reviewed for High Risk Meds patients 65 and older: Yes
--- NOTE | 2020-07-03 13:43 | PN ---
Progress Note (short form) - Note Progress Note: Resting in NAD. Just received BD TX. Denies shortness of breath, wheezing improved. Still with leg swelling. Intake & Output 06/30/20 07/01/20 07/02/20 07/03/20 23:59 23:59 23:59 23:59 Intake Total 1280 1680 540 Output Total 200 Balance 1080 1680 540 Weight 180 lb 187 lb 187 lb 0.8 oz 188 lb Last Vital Signs Temp Pulse Resp BP Pulse Ox 98.2 F 93 H 19 113/66 94 L 07/03/20 09:06 07/03/20 09:06 07/03/20 09:06 07/03/20 09:06 07/03/20 09:06 Active Medications Acetaminophen (Tylenol -) 650 mg PO Q6H PRN PRN Reason: PAIN LEVEL 6-10 Last Admin: 07/01/20 17:20 Dose: 650 mg Documented by: Albuterol/Ipratropium (Duoneb -) 1 amp NEB RQID [facility] Last Admin: 07/03/20 11:46 Dose: 1 amp Documented by: Apixaban (Eliquis -) 5 mg PO BID [facility] Last Admin: 07/03/20 09:09 Dose: 5 mg Documented by: Ascorbic Acid (Vitamin C -) 500 mg PO DAILY [facility] Last Admin: 07/03/20 09:09 Dose: 500 mg Documented by: Budesonide/Formoterol Fumarate (Symbicort 80/4.5mcg -) 1 puff IH BID [facility] Last Admin: 07/03/20 09:11 Dose: 1 puff Documented by: Escitalopram Oxalate (Lexapro -) 20 mg PO DAILY [facility] Last Admin: 07/03/20 09:10 Dose: 20 mg Documented by: Ferrous Sulfate (Feosol -) 325 mg PO DAILY [facility] Last Admin: 07/03/20 09:10 Dose: 325 mg Documented by: Ampicillin Sodium/Sulbactam (Sodium 3 gm/ Sodium Chloride) 100 mls @ 200 mls/hr IVPB Q8H-IV [facility] Last Admin: 07/03/20 12:10 Dose: 200 mls/hr Documented by: Levothyroxine Sodium (Synthroid -) 50 mcg PO DAILY@0700 [facility] Last Admin: 07/03/20 06:06 Dose: 50 mcg Documented by: Lidocaine (Lidoderm Patch -) 1 patch TP DAILY [facility] Last Admin: 07/03/20 09:10 Dose: 1 patch Documented by: Losartan Potassium (Cozaar -) 25 mg PO DAILY [facility] Last Admin: 07/03/20 09:09 Dose: 25 mg Documented by: Magnesium Oxide (Mag-Ox -) 400 mg PO BID [facility] Stop: 07/04/20 23:59 Last Admin: 07/03/20 09:09 Dose: 400 mg Documented by: Metoprolol Succinate (Toprol Xl -) 50 mg PO DAILY [facility] Last Admin: 07/03/20 09:09 Dose: 50 mg Documented by: Miscellaneous (Lidoderm Patch Removal) 1 each MC DAILY@2200 [facility] Last Admin: 07/02/20 23:59 Dose: Not Given Documented by: Multivitamins/Minerals/Vitamin C (Tab-A-Vit -) 1 tab PO DAILY [facility] Last Admin: 07/03/20 09:10 Dose: 1 tab Documented by: Pantoprazole Sodium (Protonix -) 40 mg PO DAILY [facility] Last Admin: 07/03/20 09:09 Dose: 40 mg Documented by: Pregabalin (Lyrica -) 150 mg PO BID [facility] Last Admin: 07/03/20 09:10 Dose: 150 mg Documented by: Rosuvastatin Calcium (Crestor -) 40 mg PO HS [facility] Last Admin: 07/02/20 22:34 Dose: 40 mg Documented by: Tramadol HCl (Ultram -) 50 mg PO Q6H PRN PRN Reason: PAIN LEVEL 6-10 Last Admin: 07/02/20 03:53 Dose: 50 mg Documented by: Gen: NAD at rest Herat: RRR Lung: decreased breath sounds at the bases Abd: soft, nontender Ext: (+) edema Laboratory Results - last 24 hr 07/03/20 07/03/20 05:58 05:58 WBC 4.2 RBC 3.36 L Hgb 10.3 L Hct 31.1 L MCV 92.5 MCH 30.8 MCHC 33.2 RDW 15.0 Plt Count 154 MPV 8.7 Absolute Neuts (auto) 2.0 Neutrophils % 47.1 Lymphocytes % 34.5 Monocytes % 12.8 H Eosinophils % 5.2 H Basophils % 0.4 Nucleated RBC % 0 Sodium 142 Potassium 3.9 Chloride 105 Carbon Dioxide 34 H Anion Gap 4 L BUN 21.9 H Creatinine 0.7 Est GFR (CKD-EPI)AfAm 94.18 Est GFR (CKD-EPI)NonAf 81.26 Random Glucose 93 Calcium 8.3 L Magnesium 2.1 Total Bilirubin 0.4 AST 14 L ALT 22 Alkaline Phosphatase 47 Total Protein 5.8 L Albumin 3.0 L A/P Acute on Chronic Diastolic Heart Failure Paroxysmal Atrial Fibrillation Aortic Regurgitation Asthma HTN Hyperlipidemia - BD TX - continue lasix - monitor urine output, creatinine - daily weights - O2 to keep SpO2 >90% - rate controlled - continue anticoagulation Dr Mitchell
[2020-07-03] MEDS: ROSUVASTATIN CA 20 MG TABLET (FP) PO SCH (21:23)
[2020-07-03] MEDS: LIDOCAINE PATCH REMOVAL MC SCH (21:25)
[2020-07-04] MEDS: AMPICILLIN NA/SULBACTAM NA 3 GM in SODIUM CHLORIDE 100 ML IVPB SCH ×3 (02:49→17:00)
[2020-07-04] MEDS: LEVOTHYROXINE NA 50 MCG TABLET (FP) PO SCH (06:10)
[2020-07-04 07:15] LABS: BASO % 0.4 % (0-2.0); EOS % 4.3 % (0-4.5); HEMATOCRIT 30.4 % (32.4-45.2); LYMPH % 37.8 % (8-40); MCH 30.7 pg (25.7-33.7); MEAN CELL VOLUME 93.2 fl (80-96); MEAN PLT VOLUME 8.6 fl (7.5-11.1); MONO % 12.3 % (3.8-10.2); NEUT % 45.2 % (42.8-82.8); PLATELET COUNT 153 K/MM3 (134-434); RBC 3.26 M/mm3 (3.60-5.2); RDW 14.9 % (11.6-15.6); WHITE BLOOD COUNT 3.7 K/mm3 (4.0-10.0)
[2020-07-04 07:22] LABS: POTASSIUM 4.1 mmol/L (3.5-5.1)
[2020-07-04 07:32] LABS: ALBUMIN 2.9 g/dl (3.4-5.0); CALCIUM 8.2 mg/dL (8.5-10.1); MAGNESIUM 2.3 mg/dL (1.8-2.4)
[2020-07-04 07:33] LABS: BLOOD UREA NITROGEN 14.3 mg/dL (7-18)
[2020-07-04 07:35] LABS: CREATININE 0.6 mg/dL (0.55-1.3)
[2020-07-04 07:37] LABS: BILIRUBIN,TOTAL 0.5 mg/dL (0.2-1); TOT PROT 5.5 g/dl (6.4-8.2)
--- NOTE | 2020-07-04 08:18 | PN ---
Progress Note, Physician History of Present Illness: PULMONARY ALERT,COMFORTABLE,-CP,DYSPNEA IMPROVING - Current Medication List Current Medications: Active Medications Acetaminophen (Tylenol -) 650 mg PO Q6H PRN PRN Reason: PAIN LEVEL 6-10 Last Admin: 07/01/20 17:20 Dose: 650 mg Documented by: Albuterol/Ipratropium (Duoneb -) 1 amp NEB RQID [facility] Last Admin: 07/03/20 20:10 Dose: 1 amp Documented by: Apixaban (Eliquis -) 5 mg PO BID [facility] Last Admin: 07/03/20 21:25 Dose: 5 mg Documented by: Ascorbic Acid (Vitamin C -) 500 mg PO DAILY [facility] Last Admin: 07/03/20 09:09 Dose: 500 mg Documented by: Budesonide/Formoterol Fumarate (Symbicort 80/4.5mcg -) 1 puff IH BID [facility] Last Admin: 07/03/20 21:25 Dose: 1 puff Documented by: Escitalopram Oxalate (Lexapro -) 20 mg PO DAILY [facility] Last Admin: 07/03/20 09:10 Dose: 20 mg Documented by: Ferrous Sulfate (Feosol -) 325 mg PO DAILY [facility] Last Admin: 07/03/20 09:10 Dose: 325 mg Documented by: Ampicillin Sodium/Sulbactam (Sodium 3 gm/ Sodium Chloride) 100 mls @ 200 mls/hr IVPB Q8H-IV [facility] Last Admin: 07/04/20 02:49 Dose: 200 mls/hr Documented by: Levothyroxine Sodium (Synthroid -) 50 mcg PO DAILY@0700 [facility] Last Admin: 07/04/20 06:10 Dose: 50 mcg Documented by: Lidocaine (Lidoderm Patch -) 1 patch TP DAILY [facility] Last Admin: 07/03/20 09:10 Dose: 1 patch Documented by: Losartan Potassium (Cozaar -) 25 mg PO DAILY [facility] Last Admin: 07/03/20 09:09 Dose: 25 mg Documented by: Magnesium Oxide (Mag-Ox -) 400 mg PO BID [facility] Stop: 07/04/20 23:59 Last Admin: 07/03/20 21:25 Dose: 400 mg Documented by: Metoprolol Succinate (Toprol Xl -) 50 mg PO DAILY [facility] Last Admin: 07/03/20 09:09 Dose: 50 mg Documented by: Miscellaneous (Lidoderm Patch Removal) 1 each MC DAILY@2200 [facility] Last Admin: 07/03/20 21:25 Dose: Not Given Documented by: Multivitamins/Minerals/Vitamin C (Tab-A-Vit -) 1 tab PO DAILY [facility] Last Admin: 07/03/20 09:10 Dose: 1 tab Documented by: Pantoprazole Sodium (Protonix -) 40 mg PO DAILY [facility] Last Admin: 07/03/20 09:09 Dose: 40 mg Documented by: Pregabalin (Lyrica -) 150 mg PO BID [facility] Last Admin: 07/03/20 21:24 Dose: 150 mg Documented by: Rosuvastatin Calcium (Crestor -) 40 mg PO HS [facility] Last Admin: 07/03/20 21:23 Dose: 40 mg Documented by: Tramadol HCl (Ultram -) 50 mg PO Q6H PRN PRN Reason: PAIN LEVEL 6-10 Last Admin: 07/02/20 03:53 Dose: 50 mg Documented by: - Objective Vital Signs: Vital Signs Temperature 98.3 F 07/04/20 06:00 Pulse Rate 83 07/04/20 06:00 Respiratory Rate 20 07/04/20 06:00 Blood Pressure 135/65 07/04/20 06:00 O2 Sat by Pulse Oximetry (%) 98 07/04/20 06:00 Constitutional: Yes: Well Nourished, Calm Eyes: Yes: WNL HENT: Yes: WNL Neck: Yes: WNL Cardiovascular: Yes: Pulse Irregular, S1, S2 Respiratory: Yes: CTA Bilaterally Gastrointestinal: Yes: Normal Bowel Sounds, Soft Extremities: Yes: WNL Edema: Yes Labs: CBC, BMP 07/04/20 05:45 07/04/20 05:45 INR, PTT INR 1.36 (0.83-1.09) H 06/30/20 21:30 Assessment/Plan A/P Acute on Chronic Diastolic Heart Failure improving Paroxysmal Atrial Fibrillation Aortic Regurgitation Asthma HTN Hyperlipidemia - inhaled bronchodilators - lasix - monitor urine output, creatinine - daily weights - O2 to keep SpO2 >90% - rate controlled - anticoagulation DR SAWYER
[2020-07-04] MEDS: ALBUTEROL SO4 2.5/IPRATROPIUM 0.5 INH SOL 3 ML VIAL.NEB. NEB SCH ×3 (08:31→21:05)
[2020-07-04] MEDS ORDERED: ESCITALOPRAM OXALATE 10 MG TABLET ONE (09:18)
[2020-07-04] MEDS ORDERED: PT OWN MED DRAWER 7, Y5N ONE ×2 (09:19→16:23)
[2020-07-04] MEDS: PREGABALIN 75 MG CAPSULE PO SCH ×2 (09:32→21:20)
[2020-07-04] MEDS: PANTOPRAZOLE 40 MG TABLET PO SCH (09:32)
[2020-07-04] MEDS: ESCITALOPRAM OXALATE 20 MG TABLET PO SCH (09:32)
[2020-07-04] MEDS: FERROUS SO4 325 MG TABLET (FP) PO SCH (09:33)
[2020-07-04] MEDS: LOSARTAN POTASSIUM 25 MG TABLET PO SCH (09:33)
[2020-07-04] MEDS: ASCORBIC ACID 500 MG TABLET (FP) PO SCH (09:33)
[2020-07-04] MEDS: MULTIVITAMINS (DAILY MVI) TABLET (FP) PO SCH (09:33)
[2020-07-04] MEDS: MAGNESIUM OXIDE 400 MG TABLET (FP) PO SCH ×2 (09:33→21:20)
[2020-07-04] MEDS: APIXABAN 5 MG TABLET PO SCH ×2 (09:33→21:20)
[2020-07-04] MEDS: LIDOCAINE 5% TOPICAL PATCH TP SCH (09:33)
[2020-07-04] MEDS: BUDESONIDE/FORMETEROL FUMARATE 80/4.5 mcg INHALER IH SCH ×2 (09:34→21:21)
[2020-07-04] MEDS: traMADol HCL 50 MG TABLET PO PRN ×2 (09:38→16:58)
[2020-07-04] MEDS: ACETAMINOPHEN 325 MG TABLET (FP) PO PRN ×2 (09:39→16:57)
--- NOTE | 2020-07-04 11:57 | PN ---
Progress Note (short form) - Note Progress Note: Chief Complaint: sob, cough s: no cp palps dizzy sob Current Medications Generic Name Dose Route Start Last Admin Trade Name Freq PRN Reason Stop Dose Admin Acetaminophen 650 mg 07/01/20 15:46 07/04/20 09:39 Tylenol - PO 650 mg Q6H PRN Administration PAIN LEVEL 6-10 Albuterol/Ipratropium 1 amp 07/02/20 16:00 07/04/20 08:31 Duoneb - NEB 1 amp RQID [facility] Administration Apixaban 5 mg 07/01/20 10:00 07/04/20 09:33 Eliquis - PO 5 mg BID [facility] Administration Ascorbic Acid 500 mg 07/01/20 10:00 07/04/20 09:33 Vitamin C - PO 500 mg DAILY [facility] Administration Budesonide/Formoterol Fumarate 1 puff 07/01/20 10:00 07/04/20 09:34 Symbicort 80/4.5mcg - IH 1 puff BID [facility] Administration Escitalopram Oxalate 20 mg 07/01/20 10:00 07/04/20 09:32 Lexapro - PO 20 mg DAILY [facility] Administration Ferrous Sulfate 325 mg 07/01/20 10:00 07/04/20 09:33 Feosol - PO 325 mg DAILY [facility] Administration Ampicillin Sodium/Sulbactam 100 mls @ 200 mls/hr 07/02/20 02:00 07/04/20 09:32 Sodium 3 gm/ Sodium Chloride IVPB 200 mls/hr Q8H-IV [facility] Administration Levothyroxine Sodium 50 mcg 07/01/20 10:00 07/04/20 06:10 Synthroid - PO 50 mcg DAILY@0700 [facility] Administration Lidocaine 1 patch 07/01/20 11:15 07/04/20 09:33 Lidoderm Patch - TP 1 patch DAILY [facility] Administration Losartan Potassium 25 mg 07/03/20 10:00 07/04/20 09:33 Cozaar - PO 25 mg DAILY [facility] Administration Magnesium Oxide 400 mg 07/02/20 10:15 07/04/20 09:33 Mag-Ox - PO 07/04/20 23:59 400 mg BID [facility] Administration Metoprolol Succinate 50 mg 07/01/20 10:00 07/04/20 09:33 Toprol Xl - PO 50 mg DAILY [facility] Administration Miscellaneous 1 each 07/01/20 22:00 07/03/20 21:25 Lidoderm Patch Removal MC Not Given DAILY@2200 [facility] Multivitamins/Minerals/Vitamin C 1 tab 07/01/20 10:00 07/04/20 09:33 Tab-A-Vit - PO 1 tab DAILY [facility] Administration Pantoprazole Sodium 40 mg 07/01/20 10:00 07/04/20 09:32 Protonix - PO 40 mg DAILY [facility] Administration Pregabalin 150 mg 07/01/20 10:00 07/04/20 09:32 Lyrica - PO 150 mg BID [facility] Administration Rosuvastatin Calcium 40 mg 07/02/20 21:27 07/03/20 21:23 Crestor - PO 40 mg HS [facility] Administration Tramadol HCl 50 mg 07/01/20 15:45 07/04/20 09:38 Ultram - PO 50 mg Q6H PRN Administration PAIN LEVEL 6-10 Vital Signs Period Temp Pulse Resp BP Sys/Bocanegra Pulse Ox Last 24 Hr 97.5 F-98.7 F 75-85 16-20 98-135/48-77 75-98 Constitutional: Yes: No Distress, Calm Eyes: Yes: Conjunctiva Clear Cardiovascular: Yes: Regular Rate and Rhythm Respiratory: Yes: bl wheeze and rhonchi, nl eff Gastrointestinal: Yes: Soft, Abdomen, Obese Edema:trace le edema bl Peripheral Pulses WNL: Yes Neurological: Yes: Alert, Oriented no jaundice diaphoresis not agitated - ....Imaging EKG: Image Reviewed tele: sr, rate controlled afib, PVCs echo 02/2020: Moderate AR, normal biV fx echo 06/2020 nl LV function, LA mildly dilated, mild MAC, mild MR, mild aortic sclerosis, mild AR IMP: PAF Acute on chronic diastolic CHF NSVT AR LE cellulitis HTN HLD Asthma REC: 1. PAF: -stable, cont Eliquis and Toprol 2. Acute on chronic diastolic CHF: -unclear precipitant, possibly infection/cellulitis -no signs acs -nl LV function on echo here -vol improved after several doses of iv lasix, held due to rising bun, low bp -edema is at baseline, breathing improving -transition to PO lasix -still wheezing on exam, treating for asthma as well. when resp status improves consider ischemic evaluation with pharm MPI 3. NSVT: -nl EF on echo -Keep K+ and Mg2- >4 and 2 respectively 4. AR: -moderate, with no LV dilatation 02/2020; repeat echo 5. LE cellulitis: improving -as per primary team 6. HTN: -BP soft, decreased losartan 25mg starting 07/03 7. HLD: -stable, outpatient f/u 8. Asthma: -has wheezing and productive cough, plans per pulm
--- NOTE | 2020-07-04 12:47 | PN ---
Progress Note, Physician - Current Medication List Current Medications: Active Medications Acetaminophen (Tylenol -) 650 mg PO Q6H PRN PRN Reason: PAIN LEVEL 6-10 Last Admin: 07/04/20 09:39 Dose: 650 mg Documented by: Albuterol/Ipratropium (Duoneb -) 1 amp NEB RQID [facility] Last Admin: 07/04/20 08:31 Dose: 1 amp Documented by: Apixaban (Eliquis -) 5 mg PO BID [facility] Last Admin: 07/04/20 09:33 Dose: 5 mg Documented by: Ascorbic Acid (Vitamin C -) 500 mg PO DAILY [facility] Last Admin: 07/04/20 09:33 Dose: 500 mg Documented by: Budesonide/Formoterol Fumarate (Symbicort 80/4.5mcg -) 1 puff IH BID [facility] Last Admin: 07/04/20 09:34 Dose: 1 puff Documented by: Escitalopram Oxalate (Lexapro -) 20 mg PO DAILY [facility] Last Admin: 07/04/20 09:32 Dose: 20 mg Documented by: Ferrous Sulfate (Feosol -) 325 mg PO DAILY [facility] Last Admin: 07/04/20 09:33 Dose: 325 mg Documented by: Furosemide (Lasix -) 40 mg PO DAILY [facility] Ampicillin Sodium/Sulbactam (Sodium 3 gm/ Sodium Chloride) 100 mls @ 200 mls/hr IVPB Q8H-IV [facility] Last Admin: 07/04/20 09:32 Dose: 200 mls/hr Documented by: Levothyroxine Sodium (Synthroid -) 50 mcg PO DAILY@0700 [facility] Last Admin: 07/04/20 06:10 Dose: 50 mcg Documented by: Lidocaine (Lidoderm Patch -) 1 patch TP DAILY [facility] Last Admin: 07/04/20 09:33 Dose: 1 patch Documented by: Losartan Potassium (Cozaar -) 25 mg PO DAILY [facility] Last Admin: 07/04/20 09:33 Dose: 25 mg Documented by: Magnesium Oxide (Mag-Ox -) 400 mg PO BID [facility] Stop: 07/04/20 23:59 Last Admin: 07/04/20 09:33 Dose: 400 mg Documented by: Metoprolol Succinate (Toprol Xl -) 50 mg PO DAILY [facility] Last Admin: 07/04/20 09:33 Dose: 50 mg Documented by: Miscellaneous (Lidoderm Patch Removal) 1 each MC DAILY@2200 [facility] Last Admin: 07/03/20 21:25 Dose: Not Given Documented by: Multivitamins/Minerals/Vitamin C (Tab-A-Vit -) 1 tab PO DAILY [facility] Last Admin: 07/04/20 09:33 Dose: 1 tab Documented by: Pantoprazole Sodium (Protonix -) 40 mg PO DAILY [facility] Last Admin: 07/04/20 09:32 Dose: 40 mg Documented by: Pregabalin (Lyrica -) 150 mg PO BID [facility] Last Admin: 07/04/20 09:32 Dose: 150 mg Documented by: Rosuvastatin Calcium (Crestor -) 40 mg PO [facility] Last Admin: 07/03/20 21:23 Dose: 40 mg Documented by: Tramadol HCl (Ultram -) 50 mg PO Q6H PRN PRN Reason: PAIN LEVEL 6-10 Last Admin: 07/04/20 09:38 Dose: 50 mg Documented by: - Objective Vital Signs: Vital Signs Temperature 98 F 07/04/20 09:47 Pulse Rate 75 07/04/20 09:47 Respiratory Rate 20 07/04/20 09:47 Blood Pressure 129/77 07/04/20 09:47 O2 Sat by Pulse Oximetry (%) 75 L 07/04/20 09:47 Labs: CBC, BMP 07/04/20 05:45 07/04/20 05:45 INR, PTT INR 1.36 (0.83-1.09) H 06/30/20 21:30
--- NOTE | 2020-07-04 13:55 | PN ---
Physical Exam: SUBJECTIVE: Patient seen and examined at the bedside. She denies any malaise or pain. 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 She also endorses dyspnea with mild exertion such as walking up and down the stairs x several days. Patient is being admitted for acute on chronic diastolic chf exacerbation, RLE celluliitis. She also has mild wheezing of upper lobes. Period Temp Pulse Resp BP Sys/Bocanegra Pulse Ox Last 24 Hr 97.5 F-98.7 F 75-85 16-20 98-135/48-77 75-98 GENERAL: The patient is awake, alert, and fully oriented, in no acute distress. HEAD: Normal with no signs of trauma. EYES: PERRL, extraocular movements intact, sclera anicteric, conjunctiva clear. No ptosis. ENT: Ears normal, nares patent, oropharynx clear without exudates, moist mucous membranes. NECK: Trachea midline, full range of motion, supple. LUNGS: Breath sounds equal, clear to auscultation bilaterally, no wheezes HEART: Regular rate and rhythm ABDOMEN: Soft, nontender, nondistended, normoactive bowel sounds EXTREMITIES: +1 lower ext edema bilaterally, RLE with mild erythema, hot to lisa ch NEUROLOGICAL:Normal speech, gait not observed. PSYCH: Normal mood, normal affect. Laboratory Results - last 24 hr 07/04/20 07/04/20 05:45 05:45 WBC 3.7 L RBC 3.26 L Hgb 10.0 L Hct 30.4 L MCV 93.2 MCH 30.7 MCHC 33.0 RDW 14.9 Plt Count 153 MPV 8.6 Absolute Neuts (auto) 1.7 Neutrophils % 45.2 Lymphocytes % 37.8 Monocytes % 12.3 H Eosinophils % 4.3 Basophils % 0.4 Nucleated RBC % 0 Sodium 143 Potassium 4.1 Chloride 108 H Carbon Dioxide 31 Anion Gap 4 L BUN 14.3 Creatinine 0.6 Est GFR (CKD-EPI)AfAm 99.07 Est GFR (CKD-EPI)NonAf 85.48 Random Glucose 86 Calcium 8.2 L Magnesium 2.3 Total Bilirubin 0.5 AST 16 ALT 22 Alkaline Phosphatase 45 Total Protein 5.5 L Albumin 2.9 L Active Medications Generic Name Dose Route Start Last Admin Trade Name Freq PRN Reason Stop Dose Admin Acetaminophen 650 mg 07/01/20 15:46 07/04/20 09:39 Tylenol - PO 650 mg Q6H PRN Administration PAIN LEVEL 6-10 Albuterol/Ipratropium 1 amp 07/02/20 16:00 07/04/20 08:31 Duoneb - NEB 1 amp RQID [facility] Administration Apixaban 5 mg 07/01/20 10:00 07/04/20 09:33 Eliquis - PO 5 mg BID [facility] Administration Ascorbic Acid 500 mg 07/01/20 10:00 07/04/20 09:33 Vitamin C - PO 500 mg DAILY [facility] Administration Budesonide/Formoterol Fumarate 1 puff 07/01/20 10:00 07/04/20 09:34 Symbicort 80/4.5mcg - IH 1 puff BID [facility] Administration Escitalopram Oxalate 20 mg 07/01/20 10:00 07/04/20 09:32 Lexapro - PO 20 mg DAILY [facility] Administration Ferrous Sulfate 325 mg 07/01/20 10:00 07/04/20 09:33 Feosol - PO 325 mg DAILY [facility] Administration Furosemide 40 mg 07/05/20 10:00 Lasix - PO DAILY [facility] Ampicillin Sodium/Sulbactam 100 mls @ 200 mls/hr 07/02/20 02:00 07/04/20 09:32 Sodium 3 gm/ Sodium Chloride IVPB 200 mls/hr Q8H-IV [facility] Administration Levothyroxine Sodium 50 mcg 07/01/20 10:00 07/04/20 06:10 Synthroid - PO 50 mcg DAILY@0700 [facility] Administration Lidocaine 1 patch 07/01/20 11:15 07/04/20 09:33 Lidoderm Patch - TP 1 patch DAILY [facility] Administration Losartan Potassium 25 mg 07/03/20 10:00 07/04/20 09:33 Cozaar - PO 25 mg DAILY [facility] Administration Magnesium Oxide 400 mg 07/02/20 10:15 07/04/20 09:33 Mag-Ox - PO 07/04/20 23:59 400 mg BID [facility] Administration Metoprolol Succinate 50 mg 07/01/20 10:00 07/04/20 09:33 Toprol Xl - PO 50 mg DAILY [facility] Administration Miscellaneous 1 each 07/01/20 22:00 07/03/20 21:25 Lidoderm Patch Removal MC Not Given DAILY@2200 [facility] Multivitamins/Minerals/Vitamin C 1 tab 07/01/20 10:00 07/04/20 09:33 Tab-A-Vit - PO 1 tab DAILY [facility] Administration Pantoprazole Sodium 40 mg 07/01/20 10:00 07/04/20 09:32 Protonix - PO 40 mg DAILY [facility] Administration Pregabalin 150 mg 07/01/20 10:00 07/04/20 09:32 Lyrica - PO 150 mg BID [facility] Administration Rosuvastatin Calcium 40 mg 07/02/20 21:27 07/03/20 21:23 Crestor - PO 40 mg HS [facility] Administration Tramadol HCl 50 mg 07/01/20 15:45 07/04/20 09:38 Ultram - PO 50 mg Q6H PRN Administration PAIN LEVEL 6-10 ASSESSMENT/PLAN: Problem List - Problems (1) Cellulitis of right anterior lower leg Assessment/Plan: negative for dvt. on apixiban 5mg bid on ampicllin IV ID following Code(s): L03.115 - CELLULITIS OF RIGHT LOWER LIMB (2) Acute on chronic diastolic (congestive) heart failure Assessment/Plan: BNP 822 c/w IV lasix daily weights, strict I/Os 07/03 TTE: EF 55-60%, mild MR/ unchanged from 03/02 Code(s): I50.33 - ACUTE ON CHRONIC DIASTOLIC (CONGESTIVE) HEART FAILURE (3) Leg swelling Assessment/Plan: negative for dvt Code(s): M79.89 - OTHER SPECIFIED SOFT TISSUE DISORDERS (4) COPD (chronic obstructive pulmonary disease) Assessment/Plan: mild wheezing on upper lobes, on 3 liters nasal cannula Code(s): J44.9 - CHRONIC OBSTRUCTIVE PULMONARY DISEASE, UNSPECIFIED (5) Atrial fibrillation Assessment/Plan: on toprol and eliquis monitor on tele Code(s): I48.91 - UNSPECIFIED ATRIAL FIBRILLATION (6) DVT prophylaxis Assessment/Plan: already on eliquis Code(s): Z29.9 - ENCOUNTER FOR PROPHYLACTIC MEASURES, UNSPECIFIED Visit type - Emergency Visit Emergency Visit: Yes ED Registration Date: 06/30/20 Care time: The patient presented to the Emergency Department on the above date and was hospitalized for further evaluation of their emergent condition. - New Patient This patient is new to me today: No - Critical Care Critical Care patient: No - Discharge Referral Referred to [facility] Med P.C[facility] Yes - Medication Review Med list reviewed for High Risk Meds patients 65 and older: Yes
[2020-07-04] MEDS: LIDOCAINE PATCH REMOVAL MC SCH (21:20)
[2020-07-04] MEDS: ROSUVASTATIN CA 20 MG TABLET (FP) PO SCH (21:20)
[2020-07-05] MEDS ORDERED: PT OWN MED DRAWER 7, Y5N ONE ×3 (00:53→12:57)
[2020-07-05] MEDS: AMPICILLIN NA/SULBACTAM NA 3 GM in SODIUM CHLORIDE 100 ML IVPB SCH ×2 (01:46→13:04)
[2020-07-05] MEDS: LEVOTHYROXINE NA 50 MCG TABLET (FP) PO SCH (06:10)
[2020-07-05] MEDS: traMADol HCL 50 MG TABLET PO PRN (06:10)
[2020-07-05] MEDS: ACETAMINOPHEN 325 MG TABLET (FP) PO PRN (06:11)
[2020-07-05] MEDS: guaiFENesin 200 MG/10 ML 10 ML UNIT-DOSE CUPS PO PRN (06:36)
[2020-07-05 06:49] LABS: BASO % 0.5 % (0-2.0); EOS % 5.4 % (0-4.5); HEMATOCRIT 30.7 % (32.4-45.2); HEMOGLOBIN 9.9 GM/dL (10.7-15.3); LYMPH % 42.7 % (8-40); MCH 30.5 pg (25.7-33.7); MCHC 32.3 g/dl (32.0-36.0); MEAN CELL VOLUME 94.6 fl (80-96); MEAN PLT VOLUME 8.5 fl (7.5-11.1); MONO % 12.1 % (3.8-10.2); NEUT % 39.3 % (42.8-82.8); PLATELET COUNT 148 K/MM3 (134-434); RBC 3.25 M/mm3 (3.60-5.2); RDW 14.9 % (11.6-15.6); WHITE BLOOD COUNT 3.8 K/mm3 (4.0-10.0)
[2020-07-05 07:18] LABS: POTASSIUM 4.5 mmol/L (3.5-5.1)
[2020-07-05 07:20] LABS: ALBUMIN 2.7 g/dl (3.4-5.0); CALCIUM 8.4 mg/dL (8.5-10.1); MAGNESIUM 2.6 mg/dL (1.8-2.4)
[2020-07-05 07:24] LABS: CREATININE 0.6 mg/dL (0.55-1.3)
[2020-07-05 07:25] LABS: BILIRUBIN,TOTAL 0.3 mg/dL (0.2-1); TOT PROT 5.4 g/dl (6.4-8.2)
[2020-07-05] MEDS: ALBUTEROL SO4 2.5/IPRATROPIUM 0.5 INH SOL 3 ML VIAL.NEB. NEB SCH ×4 (08:30→20:55)
[2020-07-05] MEDS ORDERED: ESCITALOPRAM OXALATE 10 MG TABLET ONE (09:29)
[2020-07-05] MEDS: APIXABAN 5 MG TABLET PO SCH ×2 (09:39→21:44)
[2020-07-05] MEDS: LOSARTAN POTASSIUM 25 MG TABLET PO SCH (09:39)
[2020-07-05] MEDS: LIDOCAINE 5% TOPICAL PATCH TP SCH (09:39)
[2020-07-05] MEDS: ESCITALOPRAM OXALATE 20 MG TABLET PO SCH (09:39)
[2020-07-05] MEDS: FERROUS SO4 325 MG TABLET (FP) PO SCH (09:39)
[2020-07-05] MEDS: MULTIVITAMINS (DAILY MVI) TABLET (FP) PO SCH (09:40)
[2020-07-05] MEDS: ASCORBIC ACID 500 MG TABLET (FP) PO SCH (09:40)
[2020-07-05] MEDS: BUDESONIDE/FORMETEROL FUMARATE 80/4.5 mcg INHALER IH SCH ×2 (09:40→21:43)
[2020-07-05] MEDS: PREGABALIN 75 MG CAPSULE PO SCH ×2 (09:40→21:44)
[2020-07-05] MEDS: PANTOPRAZOLE 40 MG TABLET PO SCH (09:40)
[2020-07-05] MEDS ORDERED: FUROSEMIDE 40 MG TABLET (FP) PO SCH (10:00)
--- NOTE | 2020-07-05 11:18 | PN ---
Progress Note, Physician History of Present Illness: stable leg improving cellulitis nearly resolved - Current Medication List Current Medications: Active Medications Acetaminophen (Tylenol -) 650 mg PO Q6H PRN PRN Reason: PAIN LEVEL 6-10 Last Admin: 07/05/20 06:11 Dose: 650 mg Documented by: Albuterol/Ipratropium (Duoneb -) 1 amp NEB RQID [facility] Last Admin: 07/04/20 21:05 Dose: 1 amp Documented by: Apixaban (Eliquis -) 5 mg PO BID [facility] Last Admin: 07/05/20 09:39 Dose: 5 mg Documented by: Ascorbic Acid (Vitamin C -) 500 mg PO DAILY [facility] Last Admin: 07/05/20 09:40 Dose: 500 mg Documented by: Budesonide/Formoterol Fumarate (Symbicort 80/4.5mcg -) 1 puff IH BID [facility] Last Admin: 07/05/20 09:40 Dose: 1 puff Documented by: Escitalopram Oxalate (Lexapro -) 20 mg PO DAILY [facility] Last Admin: 07/05/20 09:39 Dose: 20 mg Documented by: Ferrous Sulfate (Feosol -) 325 mg PO DAILY [facility] Last Admin: 07/05/20 09:39 Dose: 325 mg Documented by: Furosemide (Lasix -) 40 mg PO DAILY [facility] Last Admin: 07/05/20 09:39 Dose: 40 mg Documented by: Guaifenesin (Robitussin -) 10 ml PO Q6H PRN PRN Reason: COUGH Last Admin: 07/05/20 06:36 Dose: 10 ml Documented by: Ampicillin Sodium/Sulbactam (Sodium 3 gm/ Sodium Chloride) 100 mls @ 200 mls/hr IVPB Q8H-IV [facility] Last Admin: 07/05/20 01:46 Dose: 200 mls/hr Documented by: Levothyroxine Sodium (Synthroid -) 50 mcg PO DAILY@0700 [facility] Last Admin: 07/05/20 06:10 Dose: 50 mcg Documented by: Lidocaine (Lidoderm Patch -) 1 patch TP DAILY [facility] Last Admin: 07/05/20 09:39 Dose: 1 patch Documented by: Losartan Potassium (Cozaar -) 25 mg PO DAILY [facility] Last Admin: 07/05/20 09:39 Dose: 25 mg Documented by: Metoprolol Succinate (Toprol Xl -) 50 mg PO DAILY [facility] Last Admin: 07/05/20 09:40 Dose: 50 mg Documented by: Miscellaneous (Lidoderm Patch Removal) 1 each MC DAILY@2200 [facility] Last Admin: 07/04/20 21:20 Dose: 1 each Documented by: Multivitamins/Minerals/Vitamin C (Tab-A-Vit -) 1 tab PO DAILY [facility] Last Admin: 07/05/20 09:40 Dose: 1 tab Documented by: Pantoprazole Sodium (Protonix -) 40 mg PO DAILY [facility] Last Admin: 07/05/20 09:40 Dose: 40 mg Documented by: Pregabalin (Lyrica -) 150 mg PO BID [facility] Last Admin: 07/05/20 09:40 Dose: 150 mg Documented by: Rosuvastatin Calcium (Crestor -) 40 mg PO HS [facility] Last Admin: 07/04/20 21:20 Dose: 40 mg Documented by: Tramadol HCl (Ultram -) 50 mg PO Q6H PRN PRN Reason: PAIN LEVEL 6-10 Last Admin: 07/05/20 06:10 Dose: 50 mg Documented by: - Objective Vital Signs: Vital Signs Temperature 98.3 F 07/05/20 08:43 Pulse Rate 96 H 07/05/20 08:43 Respiratory Rate 16 07/05/20 08:43 Blood Pressure 109/58 L 07/05/20 08:43 O2 Sat by Pulse Oximetry (%) 98 07/05/20 08:43 Constitutional: Yes: No Distress, Calm Cardiovascular: Yes: S1, S2 Respiratory: Yes: Regular, CTA Bilaterally Gastrointestinal: Yes: Normal Bowel Sounds, Soft Musculoskeletal: Yes: WNL Extremities: Yes: Other Neurological: Yes: Alert, Oriented Psychiatric: Yes: Alert, Oriented Labs: CBC, BMP 07/05/20 06:10 07/05/20 06:10 INR, PTT INR 1.36 (0.83-1.09) H 06/30/20 21:30 Assessment/Plan Problem List - Problems (1) Acute on chronic diastolic (congestive) heart failure Code(s): I50.33 - ACUTE ON CHRONIC DIASTOLIC (CONGESTIVE) HEART FAILURE (2) Hip joint replacement status Code(s): Z96.649 - PRESENCE OF UNSPECIFIED ARTIFICIAL HIP JOINT (3) Leg swelling Code(s): M79.89 - OTHER SPECIFIED SOFT TISSUE DISORDERS (4) On home oxygen therapy Code(s): Z99.81 - DEPENDENCE ON SUPPLEMENTAL OXYGEN (5) Parkinson disease Code(s): G20 - PARKINSON'S DISEASE (6) S/p total knee replacement, bilateral Code(s): Z96.653 - PRESENCE OF ARTIFICIAL KNEE JOINT, BILATERAL (7) Atrial fibrillation Code(s): I48.91 - UNSPECIFIED ATRIAL FIBRILLATION (8) CAD (coronary artery disease) Code(s): I25.10 - ATHSCL HEART DISEASE OF [place] CORONARY ARTERY W/O ANG PCTRS (9) COPD (chronic obstructive pulmonary disease) Code(s): J44.9 - CHRONIC OBSTRUCTIVE PULMONARY DISEASE, UNSPECIFIED (10) Cellulitis Code(s): L03.90 - CELLULITIS, UNSPECIFIED (11) GERD (gastroesophageal reflux disease) Code(s): K21.9 - GASTRO-ESOPHAGEAL REFLUX DISEASE WITHOUT ESOPHAGITIS (12) HLD (hyperlipidemia) Code(s): E78.5 - HYPERLIPIDEMIA, UNSPECIFIED (13) HTN (hypertension) Code(s): I10 - ESSENTIAL (PRIMARY) HYPERTENSION Qualifiers: Hypertension type: essential hypertension Qualified Code(s): I10 - Essential (primary) hypertension (14) History of breast cancer Code(s): Z85.3 - PERSONAL HISTORY OF MALIGNANT NEOPLASM OF BREAST Assessment/Plan RLE cellulitis b/l LE edema Acute on chronic CHF COPD on home O2 HTN HLD CAD PAF Parkinsons hypothyroidism hx of Breast CA s/p lumpectomy/RT/chemo s/p b/l TKR s/p Lt THR plan continue abx elevation of the legs can switch to oral augmentin 500 mg po bid for 5 more days
--- NOTE | 2020-07-05 11:29 | PN ---
Progress Note, Physician History of Present Illness: pulmonary alert,comfortable,oob-chair,sob improving - Current Medication List Current Medications: Active Medications Acetaminophen (Tylenol -) 650 mg PO Q6H PRN PRN Reason: PAIN LEVEL 6-10 Last Admin: 07/05/20 06:11 Dose: 650 mg Documented by: Albuterol/Ipratropium (Duoneb -) 1 amp NEB RQID [facility] Last Admin: 07/04/20 21:05 Dose: 1 amp Documented by: Apixaban (Eliquis -) 5 mg PO BID [facility] Last Admin: 07/05/20 09:39 Dose: 5 mg Documented by: Ascorbic Acid (Vitamin C -) 500 mg PO DAILY [facility] Last Admin: 07/05/20 09:40 Dose: 500 mg Documented by: Budesonide/Formoterol Fumarate (Symbicort 80/4.5mcg -) 1 puff IH BID [facility] Last Admin: 07/05/20 09:40 Dose: 1 puff Documented by: Escitalopram Oxalate (Lexapro -) 20 mg PO DAILY [facility] Last Admin: 07/05/20 09:39 Dose: 20 mg Documented by: Ferrous Sulfate (Feosol -) 325 mg PO DAILY [facility] Last Admin: 07/05/20 09:39 Dose: 325 mg Documented by: Furosemide (Lasix -) 40 mg PO DAILY [facility] Last Admin: 07/05/20 09:39 Dose: 40 mg Documented by: Guaifenesin (Robitussin -) 10 ml PO Q6H PRN PRN Reason: COUGH Last Admin: 07/05/20 06:36 Dose: 10 ml Documented by: Ampicillin Sodium/Sulbactam (Sodium 3 gm/ Sodium Chloride) 100 mls @ 200 mls/hr IVPB Q8H-IV [facility] Last Admin: 07/05/20 01:46 Dose: 200 mls/hr Documented by: Levothyroxine Sodium (Synthroid -) 50 mcg PO DAILY@0700 [facility] Last Admin: 07/05/20 06:10 Dose: 50 mcg Documented by: Lidocaine (Lidoderm Patch -) 1 patch TP DAILY [facility] Last Admin: 07/05/20 09:39 Dose: 1 patch Documented by: Losartan Potassium (Cozaar -) 25 mg PO DAILY [facility] Last Admin: 07/05/20 09:39 Dose: 25 mg Documented by: Metoprolol Succinate (Toprol Xl -) 50 mg PO DAILY [facility] Last Admin: 07/05/20 09:40 Dose: 50 mg Documented by: Miscellaneous (Lidoderm Patch Removal) 1 each MC DAILY@2200 [facility] Last Admin: 07/04/20 21:20 Dose: 1 each Documented by: Multivitamins/Minerals/Vitamin C (Tab-A-Vit -) 1 tab PO DAILY [facility] Last Admin: 07/05/20 09:40 Dose: 1 tab Documented by: Pantoprazole Sodium (Protonix -) 40 mg PO DAILY [facility] Last Admin: 07/05/20 09:40 Dose: 40 mg Documented by: Pregabalin (Lyrica -) 150 mg PO BID [facility] Last Admin: 07/05/20 09:40 Dose: 150 mg Documented by: Rosuvastatin Calcium (Crestor -) 40 mg PO HS [facility] Last Admin: 07/04/20 21:20 Dose: 40 mg Documented by: Tramadol HCl (Ultram -) 50 mg PO Q6H PRN PRN Reason: PAIN LEVEL 6-10 Last Admin: 07/05/20 06:10 Dose: 50 mg Documented by: - Objective Vital Signs: Vital Signs Temperature 98.3 F 07/05/20 08:43 Pulse Rate 96 H 07/05/20 08:43 Respiratory Rate 16 07/05/20 08:43 Blood Pressure 109/58 L 07/05/20 08:43 O2 Sat by Pulse Oximetry (%) 98 07/05/20 08:43 Constitutional: Yes: Calm, Obese Eyes: Yes: WNL HENT: Yes: WNL Neck: Yes: WNL Cardiovascular: Yes: Regular Rate and Rhythm, S1, S2 Respiratory: Yes: Diminished Gastrointestinal: Yes: Normal Bowel Sounds, Soft, Abdomen, Obese Extremities: Yes: WNL Edema: Yes Labs: CBC, BMP 07/05/20 06:10 07/05/20 06:10 INR, PTT INR 1.36 (0.83-1.09) H 06/30/20 21:30 Assessment/Plan A/P Acute on Chronic Diastolic Heart Failure improving Paroxysmal Atrial Fibrillation Aortic Regurgitation Asthma HTN Hyperlipidemia - inhaled bronchodilators - lasix - monitor urine output, creatinine - daily weights - O2 to keep SpO2 >90% - rate controlled - anticoagulation DR SAWYER
--- NOTE | 2020-07-05 11:51 | PN ---
Progress Note (short form) - Note Progress Note: Chief Complaint: sob, cough s: no cp palps dizzy. short of breath today Current Medications Generic Name Dose Route Start Last Admin Trade Name Freq PRN Reason Stop Dose Admin Acetaminophen 650 mg 07/01/20 15:46 07/05/20 06:11 Tylenol - PO 650 mg Q6H PRN Administration PAIN LEVEL 6-10 Albuterol/Ipratropium 1 amp 07/02/20 16:00 07/04/20 21:05 Duoneb - NEB 1 amp RQID [facility]ICOLE Administration Apixaban 5 mg 07/01/20 10:00 07/05/20 09:39 Eliquis - PO 5 mg BID [facility] Administration Ascorbic Acid 500 mg 07/01/20 10:00 07/05/20 09:40 Vitamin C - PO 500 mg DAILY [facility] Administration Budesonide/Formoterol Fumarate 1 puff 07/01/20 10:00 07/05/20 09:40 Symbicort 80/4.5mcg - IH 1 puff BID [facility]LE Administration Escitalopram Oxalate 20 mg 07/01/20 10:00 07/05/20 09:39 Lexapro - PO 20 mg DAILY [facility] Administration Ferrous Sulfate 325 mg 07/01/20 10:00 07/05/20 09:39 Feosol - PO 325 mg DAILY [facility] Administration Furosemide 40 mg 07/05/20 14:00 Lasix Injection - IVPUSH DAILY [facility] Guaifenesin 10 ml 07/05/20 05:59 07/05/20 06:36 Robitussin - PO 10 ml Q6H PRN Administration COUGH Ampicillin Sodium/Sulbactam 100 mls @ 200 mls/hr 07/02/20 02:00 07/05/20 01:46 Sodium 3 gm/ Sodium Chloride IVPB 200 mls/hr Q8H-IV [facility] Administration Levothyroxine Sodium 50 mcg 07/01/20 10:00 07/05/20 06:10 Synthroid - PO 50 mcg DAILY@0700 [facility] Administration Lidocaine 1 patch 07/01/20 11:15 07/05/20 09:39 Lidoderm Patch - TP 1 patch DAILY [facility] Administration Losartan Potassium 25 mg 07/03/20 10:00 07/05/20 09:39 Cozaar - PO 25 mg DAILY [facility] Administration Metoprolol Succinate 50 mg 07/01/20 10:00 07/05/20 09:40 Toprol Xl - PO 50 mg DAILY [facility] Administration Miscellaneous 1 each 07/01/20 22:00 07/04/20 21:20 Lidoderm Patch Removal MC 1 each DAILY@2200 [facility] Administration Multivitamins/Minerals/Vitamin C 1 tab 07/01/20 10:00 07/05/20 09:40 Tab-A-Vit - PO 1 tab DAILY [facility] Administration Pantoprazole Sodium 40 mg 07/01/20 10:00 07/05/20 09:40 Protonix - PO 40 mg DAILY [facility] Administration Pregabalin 150 mg 07/01/20 10:00 07/05/20 09:40 Lyrica - PO 150 mg BID [facility] Administration Rosuvastatin Calcium 40 mg 07/02/20 21:27 07/04/20 21:20 Crestor - PO 40 mg HS [facility]LE Administration Tramadol HCl 50 mg 07/01/20 15:45 07/05/20 06:10 Ultram - PO 50 mg Q6H PRN Administration PAIN LEVEL 6-10 Vital Signs Period Temp Pulse Resp BP Sys/Bocanegra Pulse Ox Last 24 Hr 97.8 F-98.3 F 83-99 16-19 90-110/54-66 98-98 Constitutional: Yes: No Distress, Calm Eyes: Yes: Conjunctiva Clear Cardiovascular: Yes: Regular Rate and Rhythm Respiratory: Yes: bl wheeze and rhonchi, nl eff Gastrointestinal: Yes: Soft, Abdomen, Obese Edema:trace le edema bl Peripheral Pulses WNL: Yes Neurological: Yes: Alert, Oriented no jaundice diaphoresis not agitated - ....Imaging EKG: Image Reviewed tele: sr, rate controlled afib, PVCs echo 02/2020: Moderate AR, normal biV fx echo 06/2020 nl LV function, LA mildly dilated, mild MAC, mild MR, mild aortic sclerosis, mild AR IMP: PAF Acute on chronic diastolic CHF NSVT AR LE cellulitis HTN HLD Asthma REC: 1. PAF: -stable, cont Eliquis and Toprol 2. Acute on chronic diastolic CHF: -unclear precipitant, possibly infection/cellulitis -no signs acs -nl LV function on echo here -vol improved after several doses of iv lasix, held due to rising bun, low bp, received PO lasix today - weight up today, still has some dyspnea - resume lasix 40 mg IV daily - treating for asthma as well. when resp status improves consider ischemic eval uation with pharm MPI 3. NSVT: -nl EF on echo -Keep K+ and Mg2- >4 and 2 respectively 4. AR: -moderate, with no LV dilatation 02/2020; repeat echo 5. LE cellulitis: improving -as per primary team 6. HTN: -BP soft, decreased losartan 25mg starting 07/03 7. HLD: -stable, outpatient f/u 8. Asthma: -has wheezing and productive cough, plans per pulm
--- NOTE | 2020-07-05 12:06 | PN ---
Physical Exam: SUBJECTIVE: Patient seen and examined at the bedside. she is sitting up the chair, eating her lunch, tells me she feels well. 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 She presents to the ED on 06/30 with BLE swelling, worse in RLE, associated with numbness, weakness and pain x 2 weeks. She also endorses dyspnea with mild exertion such as walking up and down the stairs x several days. Patient is being admitted for acute on chronic diastolic chf exacerbation, RLE celluliitis. She was also found to have mild wheezing of upper lobes. per ID, can switch to oral antibiotics (augmentin 500 x 5 days) started on lasix IV by cardiology for increased in weights and dyspnea. monitor intake and output Period Temp Pulse Resp BP Sys/Bocanegra Pulse Ox Last 24 Hr 97.8 F-98.3 F 83-99 16-19 90-110/54-66 98-98 GENERAL: The patient is awake, alert, and fully oriented, in no acute distress. HEAD: Normal with no signs of trauma. EYES: PERRL, extraocular movements intact, sclera anicteric, conjunctiva clear. No ptosis. ENT: Ears normal, nares patent, oropharynx clear without exudates, moist mucous membranes. NECK: Trachea midline, full range of motion, supple. LUNGS: Breath sounds equal, clear to auscultation bilaterally, no wheezes HEART: Regular rate and rhythm ABDOMEN: Soft, nontender, nondistended, normoactive bowel sounds EXTREMITIES: +1 lower ext edema bilaterally, RLE with mild erythema, warm to touch NEUROLOGICAL:Normal speech, gait not observed. PSYCH: Normal mood, normal affect. SKIN: mild erythema below right breast appears fungal, nystain cream ordered. Laboratory Results - last 24 hr 07/05/20 07/05/20 06:10 06:10 WBC 3.8 L RBC 3.25 L Hgb 9.9 L Hct 30.7 L MCV 94.6 MCH 30.5 MCHC 32.3 RDW 14.9 Plt Count 148 MPV 8.5 Absolute Neuts (auto) 1.5 Neutrophils % 39.3 L Lymphocytes % 42.7 H Monocytes % 12.1 H Eosinophils % 5.4 H Basophils % 0.5 Nucleated RBC % 0 Sodium 143 Potassium 4.5 Chloride 108 H Carbon Dioxide 32 Anion Gap 3 L BUN 13.0 Creatinine 0.6 Est GFR (CKD-EPI)AfAm 99.07 Est GFR (CKD-EPI)NonAf 85.48 Random Glucose 77 Calcium 8.4 L Magnesium 2.6 H Total Bilirubin 0.3 AST 15 ALT 23 Alkaline Phosphatase 44 L Total Protein 5.4 L Albumin 2.7 L Active Medications Generic Name Dose Route Start Last Admin Trade Name Freq PRN Reason Stop Dose Admin Acetaminophen 650 mg 07/01/20 15:46 07/05/20 06:11 Tylenol - PO 650 mg Q6H PRN Administration PAIN LEVEL 6-10 Albuterol/Ipratropium 1 amp 07/02/20 16:00 07/05/20 11:25 Duoneb - NEB 1 amp RQID [facility]LE Administration Apixaban 5 mg 07/01/20 10:00 07/05/20 09:39 Eliquis - PO 5 mg BID [facility] Administration Ascorbic Acid 500 mg 07/01/20 10:00 07/05/20 09:40 Vitamin C - PO 500 mg DAILY [facility] Administration Budesonide/Formoterol Fumarate 1 puff 07/01/20 10:00 07/05/20 09:40 Symbicort 80/4.5mcg - IH 1 puff BID [facility] Administration Escitalopram Oxalate 20 mg 07/01/20 10:00 07/05/20 09:39 Lexapro - PO 20 mg DAILY [facility] Administration Ferrous Sulfate 325 mg 07/01/20 10:00 07/05/20 09:39 Feosol - PO 325 mg DAILY [facility] Administration Furosemide 40 mg 07/05/20 14:00 Lasix Injection - IVPUSH DAILY [facility] Guaifenesin 10 ml 07/05/20 05:59 07/05/20 06:36 Robitussin - PO 10 ml Q6H PRN Administration COUGH Ampicillin Sodium/Sulbactam 100 mls @ 200 mls/hr 07/02/20 02:00 07/05/20 01:46 Sodium 3 gm/ Sodium Chloride IVPB 200 mls/hr Q8H-IV [facility] Administration Levothyroxine Sodium 50 mcg 07/01/20 10:00 07/05/20 06:10 Synthroid - PO 50 mcg DAILY@0700 [facility] Administration Lidocaine 1 patch 07/01/20 11:15 07/05/20 09:39 Lidoderm Patch - TP 1 patch DAILY [facility] Administration Losartan Potassium 25 mg 07/03/20 10:00 07/05/20 09:39 Cozaar - PO 25 mg DAILY [facility] Administration Metoprolol Succinate 50 mg 07/01/20 10:00 07/05/20 09:40 Toprol Xl - PO 50 mg DAILY [facility] Administration Miscellaneous 1 each 07/01/20 22:00 07/04/20 21:20 Lidoderm Patch Removal MC 1 each DAILY@2200 [facility] Administration Multivitamins/Minerals/Vitamin C 1 tab 07/01/20 10:00 07/05/20 09:40 Tab-A-Vit - PO 1 tab DAILY [facility] Administration Pantoprazole Sodium 40 mg 07/01/20 10:00 07/05/20 09:40 Protonix - PO 40 mg DAILY [facility] Administration Pregabalin 150 mg 07/01/20 10:00 07/05/20 09:40 Lyrica - PO 150 mg BID [facility] Administration Rosuvastatin Calcium 40 mg 07/02/20 21:27 07/04/20 21:20 Crestor - PO 40 mg HS [facility] Administration Tramadol HCl 50 mg 07/01/20 15:45 07/05/20 06:10 Ultram - PO 50 mg Q6H PRN Administration PAIN LEVEL 6-10 ASSESSMENT/PLAN: Problem List - Problems (1) Cellulitis of right anterior lower leg Assessment/Plan: improved negative for dvt. on apixiban 5mg bid will need 5 more days of antibiotics but can be converted to oral antibiotics per ID: augmentin 500mg BID x 5 more days ID following Code(s): L03.115 - CELLULITIS OF RIGHT LOWER LIMB (2) Acute on chronic diastolic (congestive) heart failure Assessment/Plan: BNP 822. c/w IV lasix 40 daily per cardiology daily weights, strict I/Os 07/03 TTE: EF 55-60%, mild MR/ unchanged from 03/02 Code(s): I50.33 - ACUTE ON CHRONIC DIASTOLIC (CONGESTIVE) HEART FAILURE (3) Leg swelling Assessment/Plan: negative for dvt Code(s): M79.89 - OTHER SPECIFIED SOFT TISSUE DISORDERS (4) COPD (chronic obstructive pulmonary disease) Assessment/Plan: lung sounds improved, no further wheezing, on 3 liters nasal cannula (home oxygen dependent) Code(s): J44.9 - CHRONIC OBSTRUCTIVE PULMONARY DISEASE, UNSPECIFIED (5) Atrial fibrillation Assessment/Plan: on toprol and eliquis monitor on tele Code(s): I48.91 - UNSPECIFIED ATRIAL FIBRILLATION (6) DVT prophylaxis Assessment/Plan: already on eliquis Code(s): Z29.9 - ENCOUNTER FOR PROPHYLACTIC MEASURES, UNSPECIFIED Visit type - Emergency Visit Emergency Visit: Yes ED Registration Date: 06/30/20 Care time: The patient presented to the Emergency Department on the above date and was hospitalized for further evaluation of their emergent condition. - New Patient This patient is new to me today: No - Critical Care Critical Care patient: No - Discharge Referral Referred to [facility] No - Medication Review Med list reviewed for High Risk Meds patients 65 and older: Yes
[2020-07-05] MEDS: NYSTATIN 100,000 UNIT/GM TOPICAL CREAM 15 GM TUBE TP SCH ×2 (14:00→21:46)
[2020-07-05] MEDS: FUROSEMIDE 40 MG/4 ML INJECTABLE VIAL IVPUSH SCH (14:00)
[2020-07-05] MEDS: AMOX TR/POT CLAV 500MG/125MG TABLETS (FP) PO SCH (17:37)
[2020-07-05] MEDS: ROSUVASTATIN CA 20 MG TABLET (FP) PO SCH (21:45)
[2020-07-05] MEDS: LIDOCAINE PATCH REMOVAL MC SCH (21:55)
[2020-07-06] MEDS: guaiFENesin 200 MG/10 ML 10 ML UNIT-DOSE CUPS PO PRN (05:33)
[2020-07-06] MEDS: LEVOTHYROXINE NA 50 MCG TABLET (FP) PO SCH (06:10)
[2020-07-06] MEDS ORDERED: PT OWN MED DRAWER 7, Y5N ONE ×3 (06:42→18:03)
[2020-07-06] MEDS: ALBUTEROL SO4 2.5/IPRATROPIUM 0.5 INH SOL 3 ML VIAL.NEB. NEB SCH ×4 (07:57→20:37)
[2020-07-06] MEDS ORDERED: ESCITALOPRAM OXALATE 10 MG TABLET ONE (08:52)
[2020-07-06] MEDS: AMOX TR/POT CLAV 500MG/125MG TABLETS (FP) PO SCH ×2 (08:58→18:24)
[2020-07-06] MEDS: FUROSEMIDE 40 MG/4 ML INJECTABLE VIAL IVPUSH SCH (09:02)
[2020-07-06] MEDS: ESCITALOPRAM OXALATE 20 MG TABLET PO SCH (09:02)
[2020-07-06] MEDS: FERROUS SO4 325 MG TABLET (FP) PO SCH (09:02)
[2020-07-06] MEDS: APIXABAN 5 MG TABLET PO SCH ×2 (09:02→21:54)
[2020-07-06] MEDS: LOSARTAN POTASSIUM 25 MG TABLET PO SCH (09:02)
[2020-07-06] MEDS: PANTOPRAZOLE 40 MG TABLET PO SCH (09:03)
[2020-07-06] MEDS: LIDOCAINE 5% TOPICAL PATCH TP SCH (09:03)
[2020-07-06] MEDS: PREGABALIN 75 MG CAPSULE PO SCH ×2 (09:03→21:52)
[2020-07-06] MEDS: MULTIVITAMINS (DAILY MVI) TABLET (FP) PO SCH (09:03)
[2020-07-06] MEDS: ASCORBIC ACID 500 MG TABLET (FP) PO SCH (09:04)
[2020-07-06] MEDS: BUDESONIDE/FORMETEROL FUMARATE 80/4.5 mcg INHALER IH SCH ×2 (09:05→21:54)
[2020-07-06] MEDS: NYSTATIN 100,000 UNIT/GM TOPICAL CREAM 15 GM TUBE TP SCH ×2 (09:05→21:54)
[2020-07-06] MEDS: SODIUM CHLORIDE NASAL SPRAY 44 ML BOTTLE NS PRN (10:28)
[2020-07-06 11:30] LABS: BASO % 0.7 % (0-2.0); EOS % 3.8 % (0-4.5); HEMATOCRIT 33.5 % (32.4-45.2); HEMOGLOBIN 11.2 GM/dL (10.7-15.3); LYMPH % 31.3 % (8-40); MCH 31.7 pg (25.7-33.7); MCHC 33.5 g/dl (32.0-36.0); MEAN CELL VOLUME 94.6 fl (80-96); MEAN PLT VOLUME 8.9 fl (7.5-11.1); NEUT % 53.2 % (42.8-82.8); PLATELET COUNT 182 K/MM3 (134-434); RBC 3.54 M/mm3 (3.60-5.2); RDW 14.9 % (11.6-15.6); WHITE BLOOD COUNT 5.6 K/mm3 (4.0-10.0)
[2020-07-06 11:55] LABS: POTASSIUM 4.2 mmol/L (3.5-5.1)
[2020-07-06 11:58] LABS: ALBUMIN 3.3 g/dl (3.4-5.0)
[2020-07-06 11:59] LABS: MAGNESIUM 2.1 mg/dL (1.8-2.4)
[2020-07-06 12:02] LABS: CREATININE 0.7 mg/dL (0.55-1.3)
[2020-07-06 12:03] LABS: TOT PROT 6.4 g/dl (6.4-8.2)
[2020-07-06 12:04] LABS: BILIRUBIN,TOTAL 0.5 mg/dL (0.2-1)
--- NOTE | 2020-07-06 13:00 | PN ---
Progress Note (short form) - Note Progress Note: Resting in NAD on 3 L NC O2. Breathing feels a little better today. Wheezing improved. Still with leg swelling. Intake & Output 07/03/20 07/04/20 07/05/20 07/06/20 23:59 23:59 23:59 23:59 Intake Total 1730 1590 1010 490 Balance 1730 1590 1010 490 Weight 188 lb 188 lb 12.8 oz 189 lb 190 lb Last Vital Signs Temp Pulse Resp BP Pulse Ox 98.2 F 97 H 20 117/76 98 07/06/20 08:26 07/06/20 08:26 07/06/20 08:26 07/06/20 08:26 07/06/20 06:13 Active Medications Acetaminophen (Tylenol -) 650 mg PO Q6H PRN PRN Reason: PAIN LEVEL 6-10 Last Admin: 07/05/20 06:11 Dose: 650 mg Documented by: Albuterol/Ipratropium (Duoneb -) 1 amp NEB RQID [facility] Last Admin: 07/06/20 11:33 Dose: 1 amp Documented by: Amoxicillin/Clavulanate Potassium (Augmentin - 500mg Tablet) 1 tab PO BID@0800,1730 [facility] Last Admin: 07/06/20 08:58 Dose: 1 tab Documented by: Apixaban (Eliquis -) 5 mg PO BID [facility] Last Admin: 07/06/20 09:02 Dose: 5 mg Documented by: Ascorbic Acid (Vitamin C -) 500 mg PO DAILY [facility] Last Admin: 07/06/20 09:04 Dose: 500 mg Documented by: Budesonide/Formoterol Fumarate (Symbicort 80/4.5mcg -) 1 puff IH BID [facility] Last Admin: 07/06/20 09:05 Dose: 1 puff Documented by: Escitalopram Oxalate (Lexapro -) 20 mg PO DAILY [facility] Last Admin: 07/06/20 09:02 Dose: 20 mg Documented by: Ferrous Sulfate (Feosol -) 325 mg PO DAILY [facility] Last Admin: 07/06/20 09:02 Dose: 325 mg Documented by: Furosemide (Lasix Injection -) 40 mg IVPUSH DAILY [facility] Last Admin: 07/06/20 09:02 Dose: 40 mg Documented by: Guaifenesin (Robitussin -) 10 ml PO Q6H PRN PRN Reason: COUGH Last Admin: 07/06/20 05:33 Dose: 10 ml Documented by: Levothyroxine Sodium (Synthroid -) 50 mcg PO DAILY@0700 [facility] Last Admin: 07/06/20 06:10 Dose: 50 mcg Documented by: Lidocaine (Lidoderm Patch -) 1 patch TP DAILY [facility] Last Admin: 07/06/20 09:03 Dose: 1 patch Documented by: Losartan Potassium (Cozaar -) 25 mg PO DAILY [facility] Last Admin: 07/06/20 09:02 Dose: 25 mg Documented by: Metoprolol Succinate (Toprol Xl -) 50 mg PO DAILY [facility] Last Admin: 07/06/20 09:04 Dose: 50 mg Documented by: Miscellaneous (Lidoderm Patch Removal) 1 each MC DAILY@2200 [facility] Last Admin: 07/05/20 21:55 Dose: Not Given Documented by: Multivitamins/Minerals/Vitamin C (Tab-A-Vit -) 1 tab PO DAILY [facility] Last Admin: 07/06/20 09:03 Dose: 1 tab Documented by: Nystatin (Mycostatin Cream -) 1 applic TP BID [facility] Last Admin: 07/06/20 09:05 Dose: 1 applic Documented by: Pantoprazole Sodium (Protonix -) 40 mg PO DAILY [facility] Last Admin: 07/06/20 09:03 Dose: 40 mg Documented by: Pregabalin (Lyrica -) 150 mg PO BID [facility] Last Admin: 07/06/20 09:03 Dose: 150 mg Documented by: Rosuvastatin Calcium (Crestor -) 40 mg PO HS [facility] Last Admin: 07/05/20 21:45 Dose: 40 mg Documented by: Sodium Chloride ([place] -) 2 spray NS BID PRN PRN Reason: NASAL CONGESTION Last Admin: 07/06/20 10:28 Dose: 2 sprays Documented by: Tramadol HCl (Ultram -) 50 mg PO Q6H PRN PRN Reason: PAIN LEVEL 6-10 Last Admin: 07/05/20 06:10 Dose: 50 mg Documented by: Gen: NAD at rest Herat: RRR Lung: decreased breath sounds at the bases Abd: soft, nontender Ext: (+) edema Laboratory Results - last 24 hr 07/06/20 07/06/20 10:45 10:45 WBC 5.6 RBC 3.54 L Hgb 11.2 Hct 33.5 MCV 94.6 MCH 31.7 MCHC 33.5 RDW 14.9 Plt Count 182 D MPV 8.9 Absolute Neuts (auto) 3.0 Neutrophils % 53.2 D Lymphocytes % 31.3 D Monocytes % 11.0 H Eosinophils % 3.8 Basophils % 0.7 Nucleated RBC % 0 Sodium 140 Potassium 4.2 Chloride 103 Carbon Dioxide 33 H Anion Gap 4 L BUN 16.0 Creatinine 0.7 Est GFR (CKD-EPI)AfAm 94.18 Est GFR (CKD-EPI)NonAf 81.26 Random Glucose 85 Calcium 9.0 Magnesium 2.1 Total Bilirubin 0.5 AST 17 ALT 25 Alkaline Phosphatase 52 Total Protein 6.4 Albumin 3.3 L A/P Acute on Chronic Diastolic Heart Failure Paroxysmal Atrial Fibrillation Aortic Regurgitation Asthma HTN Hyperlipidemia - BD TX / Symbicort - IV lasix - monitor urine output, creatinine - daily weights - O2 to keep SpO2 >90% - rate controlled - continue anticoagulation Dr Mitchell
--- NOTE | 2020-07-06 14:28 | PN ---
Progress Note, Physician History of Present Illness: stable wheezing still requiring oxygen cellulitis improved swelling still present - Current Medication List Current Medications: Active Medications Acetaminophen (Tylenol -) 650 mg PO Q6H PRN PRN Reason: PAIN LEVEL 6-10 Last Admin: 07/05/20 06:11 Dose: 650 mg Documented by: Albuterol/Ipratropium (Duoneb -) 1 amp NEB RQID [facility] Last Admin: 07/06/20 11:33 Dose: 1 amp Documented by: Amoxicillin/Clavulanate Potassium (Augmentin - 500mg Tablet) 1 tab PO BID@0800,1730 [facility] Last Admin: 07/06/20 08:58 Dose: 1 tab Documented by: Apixaban (Eliquis -) 5 mg PO BID [facility] Last Admin: 07/06/20 09:02 Dose: 5 mg Documented by: Ascorbic Acid (Vitamin C -) 500 mg PO DAILY [facility] Last Admin: 07/06/20 09:04 Dose: 500 mg Documented by: Budesonide/Formoterol Fumarate (Symbicort 80/4.5mcg -) 1 puff IH BID [facility] Last Admin: 07/06/20 09:05 Dose: 1 puff Documented by: Escitalopram Oxalate (Lexapro -) 20 mg PO DAILY [facility] Last Admin: 07/06/20 09:02 Dose: 20 mg Documented by: Ferrous Sulfate (Feosol -) 325 mg PO DAILY [facility] Last Admin: 07/06/20 09:02 Dose: 325 mg Documented by: Furosemide (Lasix Injection -) 40 mg IVPUSH DAILY [facility] Last Admin: 07/06/20 09:02 Dose: 40 mg Documented by: Guaifenesin (Robitussin -) 10 ml PO Q6H PRN PRN Reason: COUGH Last Admin: 07/06/20 05:33 Dose: 10 ml Documented by: Levothyroxine Sodium (Synthroid -) 50 mcg PO DAILY@0700 [facility] Last Admin: 07/06/20 06:10 Dose: 50 mcg Documented by: Lidocaine (Lidoderm Patch -) 1 patch TP DAILY [facility] Last Admin: 07/06/20 09:03 Dose: 1 patch Documented by: Losartan Potassium (Cozaar -) 25 mg PO DAILY [facility] Last Admin: 07/06/20 09:02 Dose: 25 mg Documented by: Metoprolol Succinate (Toprol Xl -) 50 mg PO DAILY [facility] Last Admin: 07/06/20 09:04 Dose: 50 mg Documented by: Miscellaneous (Lidoderm Patch Removal) 1 each MC DAILY@2200 [facility] Last Admin: 07/05/20 21:55 Dose: Not Given Documented by: Multivitamins/Minerals/Vitamin C (Tab-A-Vit -) 1 tab PO DAILY [facility] Last Admin: 07/06/20 09:03 Dose: 1 tab Documented by: Nystatin (Mycostatin Cream -) 1 applic TP BID [facility] Last Admin: 07/06/20 09:05 Dose: 1 applic Documented by: Pantoprazole Sodium (Protonix -) 40 mg PO DAILY [facility] Last Admin: 07/06/20 09:03 Dose: 40 mg Documented by: Pregabalin (Lyrica -) 150 mg PO BID [facility] Last Admin: 07/06/20 09:03 Dose: 150 mg Documented by: Rosuvastatin Calcium (Crestor -) 40 mg PO HS [facility] Last Admin: 07/05/20 21:45 Dose: 40 mg Documented by: Sodium Chloride ([place] Nasal [place] -) 2 spray NS BID PRN PRN Reason: NASAL CONGESTION Last Admin: 07/06/20 10:28 Dose: 2 sprays Documented by: Tramadol HCl (Ultram -) 50 mg PO Q6H PRN PRN Reason: PAIN LEVEL 6-10 Last Admin: 07/05/20 06:10 Dose: 50 mg Documented by: - Objective Vital Signs: Vital Signs Temperature 98.4 F 07/06/20 14:00 Pulse Rate 109 H 07/06/20 14:00 Respiratory Rate 16 07/06/20 14:00 Blood Pressure 117/65 07/06/20 14:00 O2 Sat by Pulse Oximetry (%) 98 07/06/20 06:13 Constitutional: Yes: Calm, Mild Distress Cardiovascular: Yes: S1, S2 Respiratory: Yes: Regular, On Nasal O2 Gastrointestinal: Yes: Normal Bowel Sounds, Soft Musculoskeletal: Yes: WNL Extremities: Yes: Erythema (improved) Edema: LLE: 2+, RLE: 2+ Neurological: Yes: Alert, Oriented Psychiatric: Yes: Alert, Oriented Labs: CBC, BMP 07/06/20 10:45 07/06/20 10:45 INR, PTT INR 1.36 (0.83-1.09) H 06/30/20 21:30 Assessment/Plan Problem List - Problems (1) Acute on chronic diastolic (congestive) heart failure Code(s): I50.33 - ACUTE ON CHRONIC DIASTOLIC (CONGESTIVE) HEART FAILURE (2) Hip joint replacement status Code(s): Z96.649 - PRESENCE OF UNSPECIFIED ARTIFICIAL HIP JOINT (3) Leg swelling Code(s): M79.89 - OTHER SPECIFIED SOFT TISSUE DISORDERS (4) On home oxygen therapy Code(s): Z99.81 - DEPENDENCE ON SUPPLEMENTAL OXYGEN (5) Parkinson disease Code(s): G20 - PARKINSON'S DISEASE (6) S/p total knee replacement, bilateral Code(s): Z96.653 - PRESENCE OF ARTIFICIAL KNEE JOINT, BILATERAL (7) Atrial fibrillation Code(s): I48.91 - UNSPECIFIED ATRIAL FIBRILLATION (8) CAD (coronary artery disease) Code(s): I25.10 - ATHSCL HEART DISEASE OF [place] CORONARY ARTERY W/O ANG PCTRS (9) COPD (chronic obstructive pulmonary disease) Code(s): J44.9 - CHRONIC OBSTRUCTIVE PULMONARY DISEASE, UNSPECIFIED (10) Cellulitis Code(s): L03.90 - CELLULITIS, UNSPECIFIED (11) GERD (gastroesophageal reflux disease) Code(s): K21.9 - GASTRO-ESOPHAGEAL REFLUX DISEASE WITHOUT ESOPHAGITIS (12) HLD (hyperlipidemia) Code(s): E78.5 - HYPERLIPIDEMIA, UNSPECIFIED (13) HTN (hypertension) Code(s): I10 - ESSENTIAL (PRIMARY) HYPERTENSION Qualifiers: Hypertension type: essential hypertension Qualified Code(s): I10 - Essential (primary) hypertension (14) History of breast cancer Code(s): Z85.3 - PERSONAL HISTORY OF MALIGNANT NEOPLASM OF BREAST Assessment/Plan RLE cellulitis b/l LE edema Acute on chronic CHF COPD on home O2 HTN HLD CAD PAF Parkinsons hypothyroidism hx of Breast CA s/p lumpectomy/RT/chemo s/p b/l TKR s/p Lt THR plan elevation of the legs oral augmentin 500 mg po bid for 4 more days
--- NOTE | 2020-07-06 16:10 | PN ---
Progress Note (short form) - Note Progress Note: Chief Complaint: sob, cough s: no cp palps dizzy; mild sob has now improved. mild cough persists. no orthopnea le edmea pnd. Current Medications Generic Name Dose Route Start Last Admin Trade Name Freq PRN Reason Stop Dose Admin Acetaminophen 650 mg 07/01/20 15:46 07/05/20 06:11 Tylenol - PO 650 mg Q6H PRN Administration PAIN LEVEL 6-10 Albuterol/Ipratropium 1 amp 07/02/20 16:00 07/06/20 11:33 Duoneb - NEB 1 amp RQID NICOLE Administration Amoxicillin/Clavulanate Potassium 1 tab 07/05/20 17:30 07/06/20 08:58 Augmentin - 500mg Tablet PO 1 tab BID@0800,1730 NICOLE Administration Apixaban 5 mg 07/01/20 10:00 07/06/20 09:02 Eliquis - PO 5 mg BID NICOLE Administration Ascorbic Acid 500 mg 07/01/20 10:00 07/06/20 09:04 Vitamin C - PO 500 mg DAILY NICOLE Administration Budesonide/Formoterol Fumarate 1 puff 07/01/20 10:00 07/06/20 09:05 Symbicort 80/4.5mcg - IH 1 puff BID NICOLE Administration Escitalopram Oxalate 20 mg 07/01/20 10:00 07/06/20 09:02 Lexapro - PO 20 mg DAILY NICOLE Administration Ferrous Sulfate 325 mg 07/01/20 10:00 07/06/20 09:02 Feosol - PO 325 mg DAILY NICOLE Administration Furosemide 40 mg 07/05/20 14:00 07/06/20 09:02 Lasix Injection - IVPUSH 40 mg DAILY NICOLE Administration Guaifenesin 10 ml 07/05/20 05:59 07/06/20 05:33 Robitussin - PO 10 ml Q6H PRN Administration COUGH Levothyroxine Sodium 50 mcg 07/01/20 10:00 07/06/20 06:10 Synthroid - PO 50 mcg DAILY@0700 NICOLE Administration Lidocaine 1 patch 07/01/20 11:15 07/06/20 09:03 Lidoderm Patch - TP 1 patch DAILY NICOLE Administration Losartan Potassium 25 mg 07/03/20 10:00 07/06/20 09:02 Cozaar - PO 25 mg DAILY NICOLE Administration Metoprolol Succinate 50 mg 07/01/20 10:00 07/06/20 09:04 Toprol Xl - PO 50 mg DAILY NICOLE Administration Miscellaneous 1 each 07/01/20 22:00 07/05/20 21:55 Lidoderm Patch Removal MC Not Given DAILY@2200 [facility] Multivitamins/Minerals/Vitamin C 1 tab 07/01/20 10:00 07/06/20 09:03 Tab-A-Vit - PO 1 tab DAILY NICOLE Administration Nystatin 1 applic 07/05/20 12:30 07/06/20 09:05 Mycostatin Cream - TP 1 applic BID NICOLE Administration Pantoprazole Sodium 40 mg 07/01/20 10:00 07/06/20 09:03 Protonix - PO 40 mg DAILY NICLOE Administration Pregabalin 150 mg 07/01/20 10:00 07/06/20 09:03 Lyrica - PO 150 mg BID NICOLE Administration Rosuvastatin Calcium 40 mg 07/02/20 21:27 07/05/20 21:45 Crestor - PO 40 mg HS NICOLE Administration Sodium Chloride 2 spray 07/06/20 07:40 07/06/20 10:28 [place] Nasal [place] - NS 2 sprays BID PRN Administration NASAL CONGESTION Tramadol HCl 50 mg 07/01/20 15:45 07/05/20 06:10 Ultram - PO 50 mg Q6H PRN Administration PAIN LEVEL 6-10 Vital Signs Period Temp Pulse Resp BP Sys/[place] Pulse Ox Last 24 Hr 98 F-98.4 F 79-109 16-20 94-122/47-78 95-98 Constitutional: Yes: No Distress, Calm Eyes: Yes: Conjunctiva Clear Cardiovascular: Yes: Regular Rate and Rhythm Respiratory: Yes: bl wheeze and rhonchi, nl eff Gastrointestinal: Yes: Soft, Abdomen, Obese Edema: no Peripheral Pulses WNL: Yes Neurological: Yes: Alert, Oriented no jaundice diaphoresis Labs: CBC, BMP 07/06/20 10:45 07/06/20 10:45 tele: sr echo 02/2020: Moderate AR, normal biV fx echo 06/2020 nl LV function, LA mildly dilated, mild MAC, mild MR, mild aortic sclerosis, mild AR IMP: PAF Acute on chronic diastolic CHF NSVT AR LE cellulitis HTN HLD Asthma REC: 1. PAF: -stable, cont Eliquis and Toprol 2. Acute on chronic diastolic CHF: -unclear precipitant, possibly infection/cellulitis -no signs acs -nl LV function on echo here -vol improved with iv lasix, sob almost resolved -now that resp status improved will proceed with planned ischemic evaluation with pharm MPI tomorrow 3. NSVT: -nl EF on echo -Keep K+ and Mg2- >4 and 2 respectively 4. AR: -moderate, with no LV dilatation 02/2020; repeat echo 5. LE cellulitis: improving -as per primary team 6. HTN: -stable 7. HLD: -stable, outpatient f/u 8. Asthma: -has wheezing and productive cough, plans per pulm
--- NOTE | 2020-07-06 16:51 | PN ---
Physical Exam: SUBJECTIVE: Patient seen and examined at the bedside. 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 She presents to the ED on 06/30 with BLE swelling, worse in RLE, associated with numbness, weakness and pa in x 2 weeks. She also endorses dyspnea with mild exertion such as walking up and down the stairs x several days. Patient is being admitted for acute on chronic diastolic chf exacerbation, RLE celluliitis. She was also found to have mild wheezing of upper lobes. per ID, can switch to oral antibiotics (augmentin 500 x 5 days) started on lasix IV by cardiology for increased in weights and dyspnea. monitor intake and output for pharm stress test tomorrow Vital Signs Period Temp Pulse Resp BP Sys/[place]ra Pulse Ox Last 24 Hr 98 F-98.4 F 79-109 16-20 94-122/47-78 95-98 GENERAL: The patient is alert, and fully oriented, in no acute distress. HEAD: Normal with no signs of trauma. EYES: PERRL, extraocular movements intact, sclera anicteric, conjunctiva clear. No ptosis. ENT: Ears normal, nares patent, oropharynx clear without exudates, moist mucous membranes. NECK: Trachea midline, full range of motion, supple. LUNGS: Breath sounds equal, clear to auscultation bilaterally, no wheezes HEART: Regular rate and rhythm ABDOMEN: Soft, nontender, nondistended, normoactive bowel sounds EXTREMITIES: +1 lower ext edema bilaterally, RLE with mild erythema, warm to touch NEUROLOGICAL:Normal speech, gait not observed. PSYCH: Normal mood, normal affect. SKIN: mild erythema below right breast appears fungal, nystain cream ordered. Laboratory Results - last 24 hr 07/06/20 07/06/20 10:45 10:45 WBC 5.6 RBC 3.54 L Hgb 11.2 Hct 33.5 MCV 94.6 MCH 31.7 MCHC 33.5 RDW 14.9 Plt Count 182 D MPV 8.9 Absolute Neuts (auto) 3.0 Neutrophils % 53.2 D Lymphocytes % 31.3 D Monocytes % 11.0 H Eosinophils % 3.8 Basophils % 0.7 Nucleated RBC % 0 Sodium 140 Potassium 4.2 Chloride 103 Carbon Dioxide 33 H Anion Gap 4 L BUN 16.0 Creatinine 0.7 Est GFR (CKD-EPI)AfAm 94.18 Est GFR (CKD-EPI)NonAf 81.26 Random Glucose 85 Calcium 9.0 Magnesium 2.1 Total Bilirubin 0.5 AST 17 ALT 25 Alkaline Phosphatase 52 Total Protein 6.4 Albumin 3.3 L Active Medications Generic Name Dose Route Start Last Admin Trade Name Freq PRN Reason Stop Dose Admin Acetaminophen 650 mg 07/01/20 15:46 07/05/20 06:11 Tylenol - PO 650 mg Q6H PRN Administration PAIN LEVEL 6-10 Albuterol/Ipratropium 1 amp 07/02/20 16:00 07/06/20 11:33 Duoneb - NEB 1 amp RQID NICOLE Administration Amoxicillin/Clavulanate Potassium 1 tab 07/05/20 17:30 07/06/20 08:58 Augmentin - 500mg Tablet PO 1 tab BID@0800,1730 NICOLE Administration Apixaban 5 mg 07/01/20 10:00 07/06/20 09:02 Eliquis - PO 5 mg BID NICOLE Administration Ascorbic Acid 500 mg 07/01/20 10:00 07/06/20 09:04 Vitamin C - PO 500 mg DAILY NICOLE Administration Budesonide/Formoterol Fumarate 1 puff 07/01/20 10:00 07/06/20 09:05 Symbicort 80/4.5mcg - IH 1 puff BID NICOLE Administration Escitalopram Oxalate 20 mg 07/01/20 10:00 07/06/20 09:02 Lexapro - PO 20 mg DAILY NICOLE Administration Ferrous Sulfate 325 mg 07/01/20 10:00 07/06/20 09:02 Feosol - PO 325 mg DAILY NICOLE Administration Furosemide 40 mg 07/05/20 14:00 07/06/20 09:02 Lasix Injection - IVPUSH 40 mg DAILY NICOLE Administration Guaifenesin 10 ml 07/05/20 05:59 07/06/20 05:33 Robitussin - PO 10 ml Q6H PRN Administration COUGH Levothyroxine Sodium 50 mcg 07/01/20 10:00 07/06/20 06:10 Synthroid - PO 50 mcg DAILY@0700 NICOLE Administration Lidocaine 1 patch 07/01/20 11:15 07/06/20 09:03 Lidoderm Patch - TP 1 patch DAILY NICOLE Administration Losartan Potassium 25 mg 07/03/20 10:00 07/06/20 09:02 Cozaar - PO 25 mg DAILY NICOLE Administration Metoprolol Succinate 50 mg 07/01/20 10:00 07/06/20 09:04 Toprol Xl - PO 50 mg DAILY NICOLE Administration Miscellaneous 1 each 07/01/20 22:00 07/05/20 21:55 Lidoderm Patch Removal MC Not Given DAILY@2200 [facility] Multivitamins/Minerals/Vitamin C 1 tab 07/01/20 10:00 07/06/20 09:03 Tab-A-Vit - PO 1 tab DAILY NICOLE Administration Nystatin 1 applic 07/05/20 12:30 07/06/20 09:05 Mycostatin Cream - TP 1 applic BID NICOLE Administration Pantoprazole Sodium 40 mg 07/01/20 10:00 07/06/20 09:03 Protonix - PO 40 mg DAILY NICOLE Administration Pregabalin 150 mg 07/01/20 10:00 07/06/20 09:03 Lyrica - PO 150 mg BID NICOLE Administration Rosuvastatin Calcium 40 mg 07/02/20 21:27 07/05/20 21:45 Crestor - PO 40 mg HS NICOLE Administration Sodium Chloride 2 spray 07/06/20 07:40 07/06/20 10:28 [place] Nasal [place] - NS 2 sprays BID PRN Administration NASAL CONGESTION Tramadol HCl 50 mg 07/01/20 15:45 07/05/20 06:10 Ultram - PO 50 mg Q6H PRN Administration PAIN LEVEL 6-10 ASSESSMENT/PLAN: Problem List - Problems (1) Cellulitis of right anterior lower leg Assessment/Plan: improved negative for dvt. on apixiban 5mg bid will need 4 more days of antibiotics but can be converted to oral antibiotics per ID: augmentin 500mg BID x 5 more days ID following Code(s): L03.115 - CELLULITIS OF RIGHT LOWER LIMB (2) Acute on chronic diastolic (congestive) heart failure Assessment/Plan: BNP 822. c/w IV lasix 40 daily per cardiology daily weights, strict I/Os 07/03 TTE: EF 55-60%, mild MR/ unchanged from 03/02 Code(s): I50.33 - ACUTE ON CHRONIC DIASTOLIC (CONGESTIVE) HEART FAILURE (3) Leg swelling Assessment/Plan: negative for dvt Code(s): M79.89 - OTHER SPECIFIED SOFT TISSUE DISORDERS (4) COPD (chronic obstructive pulmonary disease) Assessment/Plan: lung sounds improved, mild wheezing on anterior lobes, on 3 liters nasal cannula (home oxygen dependent) on bronchodilators pulmonary following Code(s): J44.9 - CHRONIC OBSTRUCTIVE PULMONARY DISEASE, UNSPECIFIED (5) Atrial fibrillation Assessment/Plan: on toprol and eliquis monitor on tele Code(s): I48.91 - UNSPECIFIED ATRIAL FIBRILLATION (6) DVT prophylaxis Assessment/Plan: already on eliquis Code(s): Z29.9 - ENCOUNTER FOR PROPHYLACTIC MEASURES, UNSPECIFIED Visit type - Emergency Visit Emergency Visit: Yes ED Registration Date: 06/30/20 Care time: The patient presented to the Emergency Department on the above date and was hospitalized for further evaluation of their emergent condition. - New Patient This patient is new to me today: No - Critical Care Critical Care patient: No - Discharge Referral Referred to [facility] No - Medication Review Med list reviewed for High Risk Meds patients 65 and older: Yes
[2020-07-06] MEDS: ROSUVASTATIN CA 20 MG TABLET (FP) PO SCH (21:53)
[2020-07-06] MEDS: LIDOCAINE PATCH REMOVAL MC SCH (21:54)
--- NOTE | 2020-07-07 05:35 | PN ---
Progress Note, Physician Chief Complaint: Back on IV Lasix/ BP stable. - Current Medication List Current Medications: Active Medications Acetaminophen (Tylenol -) 650 mg PO Q6H PRN PRN Reason: PAIN LEVEL 6-10 Last Admin: 07/05/20 06:11 Dose: 650 mg Documented by: Albuterol/Ipratropium (Duoneb -) 1 amp NEB RQID [facility] Last Admin: 07/06/20 20:37 Dose: 1 amp Documented by: Amoxicillin/Clavulanate Potassium (Augmentin - 500mg Tablet) 1 tab PO BID@0800,1730 [facility] Last Admin: 07/06/20 18:24 Dose: 1 tab Documented by: Apixaban (Eliquis -) 5 mg PO BID [facility] Last Admin: 07/06/20 21:54 Dose: 5 mg Documented by: Ascorbic Acid (Vitamin C -) 500 mg PO DAILY [facility] Last Admin: 07/06/20 09:04 Dose: 500 mg Documented by: Budesonide/Formoterol Fumarate (Symbicort 80/4.5mcg -) 1 puff IH BID [facility] Last Admin: 07/06/20 21:54 Dose: 1 puff Documented by: Escitalopram Oxalate (Lexapro -) 20 mg PO DAILY [facility] Last Admin: 07/06/20 09:02 Dose: 20 mg Documented by: Ferrous Sulfate (Feosol -) 325 mg PO DAILY [facility] Last Admin: 07/06/20 09:02 Dose: 325 mg Documented by: Furosemide (Lasix Injection -) 40 mg IVPUSH DAILY [facility] Last Admin: 07/06/20 09:02 Dose: 40 mg Documented by: Guaifenesin (Robitussin -) 10 ml PO Q6H PRN PRN Reason: COUGH Last Admin: 07/06/20 05:33 Dose: 10 ml Documented by: Levothyroxine Sodium (Synthroid -) 50 mcg PO DAILY@0700 [facility] Last Admin: 07/06/20 06:10 Dose: 50 mcg Documented by: Lidocaine (Lidoderm Patch -) 1 patch TP DAILY [facility] Last Admin: 07/06/20 09:03 Dose: 1 patch Documented by: Losartan Potassium (Cozaar -) 25 mg PO DAILY [facility] Last Admin: 07/06/20 09:02 Dose: 25 mg Documented by: Metoprolol Succinate (Toprol Xl -) 50 mg PO DAILY [facility] Last Admin: 07/06/20 09:04 Dose: 50 mg Documented by: Miscellaneous (Lidoderm Patch Removal) 1 each MC DAILY@2200 [facility] Last Admin: 07/06/20 21:54 Dose: 1 each Documented by: Multivitamins/Minerals/Vitamin C (Tab-A-Vit -) 1 tab PO DAILY [facility] Last Admin: 07/06/20 09:03 Dose: 1 tab Documented by: Nystatin (Mycostatin Cream -) 1 applic TP BID [facility] Last Admin: 07/06/20 21:54 Dose: 1 applic Documented by: Pantoprazole Sodium (Protonix -) 40 mg PO DAILY [facility] Last Admin: 07/06/20 09:03 Dose: 40 mg Documented by: Pregabalin (Lyrica -) 150 mg PO BID [facility] Last Admin: 07/06/20 21:52 Dose: 150 mg Documented by: Rosuvastatin Calcium (Crestor -) 40 mg PO HS [facility] Last Admin: 07/06/20 21:53 Dose: 40 mg Documented by: Sodium Chloride ([place] Nasal [place] -) 2 spray NS BID PRN PRN Reason: NASAL CONGESTION Last Admin: 07/06/20 10:28 Dose: 2 sprays Documented by: Tramadol HCl (Ultram -) 50 mg PO Q6H PRN PRN Reason: PAIN LEVEL 6-10 Last Admin: 07/05/20 06:10 Dose: 50 mg Documented by: - Objective Vital Signs: Vital Signs Temperature 97.9 F 07/07/20 02:00 Pulse Rate 99 H 07/07/20 02:00 Respiratory Rate 18 07/07/20 02:00 Blood Pressure 113/55 L 07/07/20 02:00 O2 Sat by Pulse Oximetry (%) 98 07/06/20 22:00 Constitutional: Yes: No Distress, Calm Cardiovascular: Yes: Regular Rate and Rhythm Respiratory: Yes: Other (scattered mild exp wheezing) Gastrointestinal: Yes: Soft, Abdomen, Obese Edema: No Neurological: Yes: Alert, Oriented ...Motor Strength: WNL Labs: CBC, BMP 07/06/20 10:45 07/06/20 10:45 INR, PTT INR 1.36 (0.83-1.09) H 06/30/20 21:30 Laboratory Tests 07/01/20 07/02/20 07/02/20 05:42 05:46 05:46 WBC 4.0 Hgb 10.1 L Plt Count 152 Sodium 141 Potassium 4.1 BUN 24.1 H Creatinine 0.8 COVID-19 (REGGIE) Pending 07/07/20 07/07/20 06:35 06:35 WBC 4.6 Hgb 10.1 L Plt Count 157 Sodium 141 Potassium 4.0 BUN Creatinine 0.7 COVID-19 (REGGIE) - ....Imaging EKG: Image Reviewed Assessment/Plan echo 06/2020 nl LV function, LA mildly dilated, mild MAC, mild MR, mild aortic sclerosis, mild AR IMP: PAF Acute on chronic diastolic CHF NSVT AR LE cellulitis HTN HLD Asthma REC: 1. PAF: -stable, cont Eliquis and Toprol 2. Acute on chronic diastolic CHF: -unclear precipitant, possibly infection/cellulitis -no signs acs -nl LV function on echo here -vol improved with iv lasix, sob almost resolved -dobutamine nuclear stress showed a partially reversible anteroapical perfusion defect. 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 Discussed with patient and son who report having abnormal nuclear stress and cath at [facility] in OCT 2019 -Will request those records prior to further decisions re management (med rx vs repeat cath) -Continue telemetry 3. NSVT: -nl EF on echo -Keep K+ and Mg2- >4 and 2 respectively 4. AR: -moderate, with no LV dilatation 02/2020; repeat echo 5. LE cellulitis: improving -as per primary team 6. HTN: -stable 7. HLD: -stable, outpatient f/u 8. Asthma: -has wheezing and productive cough, plans per pulm
[2020-07-07] MEDS: LEVOTHYROXINE NA 50 MCG TABLET (FP) PO SCH (06:01)
[2020-07-07 07:35] LABS: BASO % 0.4 % (0-2.0); EOS % 3.4 % (0-4.5); HEMATOCRIT 31.3 % (32.4-45.2); HEMOGLOBIN 10.1 GM/dL (10.7-15.3); LYMPH % 33.1 % (8-40); MCH 30.3 pg (25.7-33.7); MCHC 32.4 g/dl (32.0-36.0); MEAN CELL VOLUME 93.5 fl (80-96); MEAN PLT VOLUME 8.9 fl (7.5-11.1); MONO % 12.7 % (3.8-10.2); NEUT % 50.4 % (42.8-82.8); PLATELET COUNT 157 K/MM3 (134-434); RBC 3.34 M/mm3 (3.60-5.2); RDW 14.9 % (11.6-15.6); WHITE BLOOD COUNT 4.6 K/mm3 (4.0-10.0)
[2020-07-07] MEDS: ALBUTEROL SO4 2.5/IPRATROPIUM 0.5 INH SOL 3 ML VIAL.NEB. NEB SCH ×4 (07:35→19:51)
[2020-07-07 08:03] LABS: ALBUMIN 2.8 g/dl (3.4-5.0); BLOOD UREA NITROGEN 17.5 mg/dL (7-18); CALCIUM 8.6 mg/dL (8.5-10.1)
[2020-07-07 08:05] LABS: MAGNESIUM 1.9 mg/dL (1.8-2.4)
[2020-07-07 08:07] LABS: CREATININE 0.7 mg/dL (0.55-1.3)
[2020-07-07 08:09] LABS: BILIRUBIN,TOTAL 0.4 mg/dL (0.2-1); TOT PROT 5.6 g/dl (6.4-8.2)
--- NOTE | 2020-07-07 08:12 | PN ---
Progress Note, Physician - Current Medication List Current Medications: Active Medications Acetaminophen (Tylenol -) 650 mg PO Q6H PRN PRN Reason: PAIN LEVEL 6-10 Last Admin: 07/05/20 06:11 Dose: 650 mg Documented by: Albuterol/Ipratropium (Duoneb -) 1 amp NEB RQID [facility] Last Admin: 07/07/20 07:35 Dose: 1 amp Documented by: Amoxicillin/Clavulanate Potassium (Augmentin - 500mg Tablet) 1 tab PO BID@0800,1730 [facility] Last Admin: 07/06/20 18:24 Dose: 1 tab Documented by: Apixaban (Eliquis -) 5 mg PO BID [facility] Last Admin: 07/06/20 21:54 Dose: 5 mg Documented by: Ascorbic Acid (Vitamin C -) 500 mg PO DAILY [facility] Last Admin: 07/06/20 09:04 Dose: 500 mg Documented by: Budesonide/Formoterol Fumarate (Symbicort 80/4.5mcg -) 1 puff IH BID [facility] Last Admin: 07/06/20 21:54 Dose: 1 puff Documented by: Escitalopram Oxalate (Lexapro -) 20 mg PO DAILY [facility] Last Admin: 07/06/20 09:02 Dose: 20 mg Documented by: Ferrous Sulfate (Feosol -) 325 mg PO DAILY [facility] Last Admin: 07/06/20 09:02 Dose: 325 mg Documented by: Furosemide (Lasix Injection -) 40 mg IVPUSH DAILY [facility] Last Admin: 07/06/20 09:02 Dose: 40 mg Documented by: Guaifenesin (Robitussin -) 10 ml PO Q6H PRN PRN Reason: COUGH Last Admin: 07/06/20 05:33 Dose: 10 ml Documented by: Levothyroxine Sodium (Synthroid -) 50 mcg PO DAILY@0700 [facility] Last Admin: 07/07/20 06:01 Dose: 50 mcg Documented by: Lidocaine (Lidoderm Patch -) 1 patch TP DAILY [facility] Last Admin: 07/06/20 09:03 Dose: 1 patch Documented by: Losartan Potassium (Cozaar -) 25 mg PO DAILY [facility] Last Admin: 07/06/20 09:02 Dose: 25 mg Documented by: Metoprolol Succinate (Toprol Xl -) 50 mg PO DAILY [facility] Last Admin: 07/06/20 09:04 Dose: 50 mg Documented by: Miscellaneous (Lidoderm Patch Removal) 1 each MC DAILY@2200 [facility] Last Admin: 07/06/20 21:54 Dose: 1 each Documented by: Multivitamins/Minerals/Vitamin C (Tab-A-Vit -) 1 tab PO DAILY [facility] Last Admin: 07/06/20 09:03 Dose: 1 tab Documented by: Nystatin (Mycostatin Cream -) 1 applic TP BID [facility] Last Admin: 07/06/20 21:54 Dose: 1 applic Documented by: Pantoprazole Sodium (Protonix -) 40 mg PO DAILY [facility] Last Admin: 07/06/20 09:03 Dose: 40 mg Documented by: Pregabalin (Lyrica -) 150 mg PO BID [facility] Last Admin: 07/06/20 21:52 Dose: 150 mg Documented by: Rosuvastatin Calcium (Crestor -) 40 mg PO HS [facility] Last Admin: 07/06/20 21:53 Dose: 40 mg Documented by: Sodium Chloride ([place] Nasal [place] -) 2 spray NS BID PRN PRN Reason: NASAL CONGESTION Last Admin: 07/06/20 10:28 Dose: 2 sprays Documented by: Tramadol HCl (Ultram -) 50 mg PO Q6H PRN PRN Reason: PAIN LEVEL 6-10 Last Admin: 07/05/20 06:10 Dose: 50 mg Documented by: - Objective Vital Signs: Vital Signs Temperature 98.0 F 07/07/20 05:56 Pulse Rate 102 H 07/07/20 05:56 Respiratory Rate 20 07/07/20 05:56 Blood Pressure 129/67 07/07/20 05:56 O2 Sat by Pulse Oximetry (%) 96 07/07/20 05:56 Labs: CBC, BMP 07/07/20 06:35 07/07/20 06:35 INR, PTT INR 1.36 (0.83-1.09) H 06/30/20 21:30 Assessment/Plan A/P Acute on Chronic Diastolic Heart Failure improving Paroxysmal Atrial Fibrillation Aortic Regurgitation Asthma HTN Hyperlipidemia - inhaled bronchodilators - lasix - monitor urine output, creatinine - daily weights - O2 to keep SpO2 >90% - rate controlled - anticoagulation DR SAWYER
[2020-07-07] MEDS: BUDESONIDE/FORMETEROL FUMARATE 80/4.5 mcg INHALER IH SCH ×2 (08:20→22:05)
[2020-07-07] MEDS ORDERED: REGADENOSON 0.4 MG/5 ML PRE-FILLED SYRINGE IVPUSH ONE ×2 (09:37→10:00)
[2020-07-07] MEDS ORDERED: PT OWN MED DRAWER 7, Y5N ONE (09:54)
[2020-07-07] MEDS ORDERED: DOBUTAMINE HCL 100,000 MCG in DEXTROSE 5%-WATER - 92 ML IVPB ONE (13:30)
--- NOTE | 2020-07-07 13:41 | PN ---
Progress Note, Physician - Current Medication List Current Medications: Active Medications Acetaminophen (Tylenol -) 650 mg PO Q6H PRN PRN Reason: PAIN LEVEL 6-10 Last Admin: 07/05/20 06:11 Dose: 650 mg Documented by: Albuterol/Ipratropium (Duoneb -) 1 amp NEB RQID [facility] Last Admin: 07/07/20 11:03 Dose: Not Given Documented by: Amoxicillin/Clavulanate Potassium (Augmentin - 500mg Tablet) 1 tab PO BID@0800, 1730 [facility] Last Admin: 07/06/20 18:24 Dose: 1 tab Documented by: Apixaban (Eliquis -) 5 mg PO BID [facility] Last Admin: 07/06/20 21:54 Dose: 5 mg Documented by: Ascorbic Acid (Vitamin C -) 500 mg PO DAILY [facility] Last Admin: 07/06/20 09:04 Dose: 500 mg Documented by: Budesonide/Formoterol Fumarate (Symbicort 80/4.5mcg -) 1 puff IH BID [facility] Last Admin: 07/06/20 21:54 Dose: 1 puff Documented by: Escitalopram Oxalate (Lexapro -) 20 mg PO DAILY [facility] Last Admin: 07/06/20 09:02 Dose: 20 mg Documented by: Ferrous Sulfate (Feosol -) 325 mg PO DAILY [facility] Last Admin: 07/06/20 09:02 Dose: 325 mg Documented by: Furosemide (Lasix Injection -) 40 mg IVPUSH DAILY [facility] Last Admin: 07/06/20 09:02 Dose: 40 mg Documented by: Guaifenesin (Robitussin -) 10 ml PO Q6H PRN PRN Reason: COUGH Last Admin: 07/06/20 05:33 Dose: 10 ml Documented by: Dobutamine HCl 100,000 mcg/ (Dextrose) 100 mls @ 25.8 mls/hr IVPB ONCE ONE; Protocol Stop: 07/07/20 17:22 Levothyroxine Sodium (Synthroid -) 50 mcg PO DAILY@0700 [facility] Last Admin: 07/07/20 06:01 Dose: 50 mcg Documented by: Lidocaine (Lidoderm Patch -) 1 patch TP DAILY [facility] Last Admin: 07/06/20 09:03 Dose: 1 patch Documented by: Losartan Potassium (Cozaar -) 25 mg PO DAILY [facility] Last Admin: 07/06/20 09:02 Dose: 25 mg Documented by: Metoprolol Succinate (Toprol Xl -) 50 mg PO DAILY [facility] Last Admin: 07/06/20 09:04 Dose: 50 mg Documented by: Miscellaneous (Lidoderm Patch Removal) 1 each MC DAILY@2200 [facility] Last Admin: 07/06/20 21:54 Dose: 1 each Documented by: Multivitamins/Minerals/Vitamin C (Tab-A-Vit -) 1 tab PO DAILY [facility] Last Admin: 07/06/20 09:03 Dose: 1 tab Documented by: Nystatin (Mycostatin Cream -) 1 applic TP BID [facility] Last Admin: 07/06/20 21:54 Dose: 1 applic Documented by: Pantoprazole Sodium (Protonix -) 40 mg PO DAILY [facility] Last Admin: 07/06/20 09:03 Dose: 40 mg Documented by: Pregabalin (Lyrica -) 150 mg PO BID [facility] Last Admin: 07/06/20 21:52 Dose: 150 mg Documented by: Rosuvastatin Calcium (Crestor -) 40 mg PO HS [facility] Last Admin: 07/06/20 21:53 Dose: 40 mg Documented by: Sodium Chloride ([place] Nasal [place] -) 2 spray NS BID PRN PRN Reason: NASAL CONGESTION Last Admin: 07/06/20 10:28 Dose: 2 sprays Documented by: Tramadol HCl (Ultram -) 50 mg PO Q6H PRN PRN Reason: PAIN LEVEL 6-10 Last Admin: 07/05/20 06:10 Dose: 50 mg Documented by: - Objective Vital Signs: Vital Signs Temperature 98.4 F 07/07/20 08:15 Pulse Rate 111 H 07/07/20 08:15 Respiratory Rate 19 07/07/20 08:15 Blood Pressure 114/62 07/07/20 08:15 O2 Sat by Pulse Oximetry (%) 97 07/07/20 09:00 Labs: CBC, BMP 07/07/20 06:35 07/07/20 06:35 INR, PTT INR 1.36 (0.83-1.09) H 06/30/20 21:30
[2020-07-07] MEDS: LOSARTAN POTASSIUM 25 MG TABLET PO SCH (14:15)
[2020-07-07] MEDS: ESCITALOPRAM OXALATE 20 MG TABLET PO SCH (14:15)
[2020-07-07] MEDS: PREGABALIN 75 MG CAPSULE PO SCH ×2 (14:15→22:06)
[2020-07-07] MEDS: AMOX TR/POT CLAV 500MG/125MG TABLETS (FP) PO SCH ×2 (14:15→19:09)
[2020-07-07] MEDS: FERROUS SO4 325 MG TABLET (FP) PO SCH (14:16)
[2020-07-07] MEDS: PANTOPRAZOLE 40 MG TABLET PO SCH (14:16)
[2020-07-07] MEDS: ASCORBIC ACID 500 MG TABLET (FP) PO SCH (14:18)
[2020-07-07] MEDS: MULTIVITAMINS (DAILY MVI) TABLET (FP) PO SCH (14:18)
[2020-07-07] MEDS: APIXABAN 5 MG TABLET PO SCH ×2 (14:18→22:06)
[2020-07-07] MEDS: FUROSEMIDE 40 MG/4 ML INJECTABLE VIAL IVPUSH SCH (14:19)
[2020-07-07] MEDS: LIDOCAINE 5% TOPICAL PATCH TP SCH (14:20)
[2020-07-07] MEDS: NYSTATIN 100,000 UNIT/GM TOPICAL CREAM 15 GM TUBE TP SCH ×2 (14:21→22:06)
--- NOTE | 2020-07-07 16:46 | PN ---
Physical Exam: SUBJECTIVE: Patient seen and examined at the bedside. she is sitting in the chair, just had the stress test. had some wheezing during stress test but now better. daughter in room. 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 She presents to the ED on 06/30 with BLE swelling, worse in RLE, associated with numbness, weakness and pain x 2 weeks. She also endorses dyspnea with mild exertion such as walking up and down the stairs x several days. Patient is being admitted for acute on chronic diastolic chf exacerbation, RLE celluliitis. She was also found to have mild wheezing of upper lobes. per ID, can switch to oral antibiotics (augmentin 500 x 5 days) started on lasix IV by cardiology for increased in weights and dyspnea. weights slightly up today but clinically improved. less edema of lower extremities. dobutamine nuclear stress showed a partially reversible anteroapical perfusion defect. further recommendations or treatments per cardiology. d/c once cleared by cardiology. Period Temp Pulse Resp BP Sys/[place] Pulse Ox Last 24 Hr 97.9 F-98.4 F 92-111 18-22 98-129/55-67 96-98 GENERAL: The patient is alert, and fully oriented, in no acute distress. HEAD: Normal with no signs of trauma. EYES: PERRL, extraocular movements intact, sclera anicteric, conjunctiva clear. No ptosis. ENT: Ears normal, nares patent, oropharynx clear without exudates, moist mucous membranes. NECK: Trachea midline, full range of motion, supple. LUNGS: Breath sounds equal, clear to auscultation bilaterally, no wheezes HEART: Regular rate and rhythm ABDOMEN: Soft, nontender, nondistended, normoactive bowel sounds EXTREMITIES: +1 lower ext edema bilaterally, RLE with mild erythema, warm to touch NEUROLOGICAL:Normal speech, gait not observed. PSYCH: Normal mood, normal affect. SKIN: mild erythema below right breast appears fungal, nystain cream ordered. Laboratory Results - last 24 hr 07/07/20 07/07/20 06:35 06:35 WBC 4.6 RBC 3.34 L Hgb 10.1 L Hct 31.3 L MCV 93.5 MCH 30.3 MCHC 32.4 RDW 14.9 Plt Count 157 MPV 8.9 Absolute Neuts (auto) 2.3 Neutrophils % 50.4 Lymphocytes % 33.1 Monocytes % 12.7 H Eosinophils % 3.4 Basophils % 0.4 Nucleated RBC % 0 Sodium 141 Potassium 4.0 Chloride 103 Carbon Dioxide 34 H Anion Gap 4 L BUN 17.5 Creatinine 0.7 Est GFR (CKD-EPI)AfAm 94.18 Est GFR (CKD-EPI)NonAf 81.26 Random Glucose 84 Calcium 8.6 Magnesium 1.9 Total Bilirubin 0.4 AST 14 L ALT 21 Alkaline Phosphatase 46 Total Protein 5.6 L Albumin 2.8 L Active Medications Generic Name Dose Route Start Last Admin Trade Name Freq PRN Reason Stop Dose Admin Acetaminophen 650 mg 07/01/20 15:46 07/05/20 06:11 Tylenol - PO 650 mg Q6H PRN Administration PAIN LEVEL 6-10 Albuterol/Ipratropium 1 amp 07/02/20 16:00 07/07/20 15:17 Duoneb - NEB 1 amp RQID [facility] Administration Amoxicillin/Clavulanate Potassium 1 tab 07/05/20 17:30 07/07/20 14:15 Augmentin - 500mg Tablet PO 1 tab BID@0800,1730 [facility] Administration Apixaban 5 mg 07/01/20 10:00 07/07/20 14:18 Eliquis - PO 5 mg BID [facility] Administration Ascorbic Acid 500 mg 07/01/20 10:00 07/07/20 14:18 Vitamin C - PO 500 mg DAILY [facility] Administration Budesonide/Formoterol Fumarate 1 puff 07/01/20 10:00 07/07/20 08:20 Symbicort 80/4.5mcg - IH 1 puff BID [facility] Administration Escitalopram Oxalate 20 mg 07/01/20 10:00 07/07/20 14:15 Lexapro - PO 20 mg DAILY [facility] Administration Ferrous Sulfate 325 mg 07/01/20 10:00 07/07/20 14:16 Feosol - PO 325 mg DAILY [facility] Administration Furosemide 40 mg 07/05/20 14:00 07/07/20 14:19 Lasix Injection - IVPUSH 40 mg DAILY [facility] Administration Guaifenesin 10 ml 07/05/20 05:59 07/06/20 05:33 Robitussin - PO 10 ml Q6H PRN Administration COUGH Dobutamine HCl 100,000 mcg/ 100 mls @ 25.8 mls/hr 07/07/20 13:30 07/07/20 16:36 Dextrose IVPB 07/07/20 17:22 Not Given ONCE ONE Protocol 5 MCG/KG/MIN Levothyroxine Sodium 50 mcg 07/01/20 10:00 07/07/20 06:01 Synthroid - PO 50 mcg DAILY@0700 [facility] Administration Lidocaine 1 patch 07/01/20 11:15 07/07/20 14:20 Lidoderm Patch - TP 1 patch DAILY [facility] Administration Losartan Potassium 25 mg 07/03/20 10:00 07/07/20 14:15 Cozaar - PO 25 mg DAILY [facility] Administration Metoprolol Succinate 50 mg 07/01/20 10:00 07/07/20 14:18 Toprol Xl - PO 50 mg DAILY [facility] Administration Miscellaneous 1 each 07/01/20 22:00 07/06/20 21:54 Lidoderm Patch Removal MC 1 each DAILY@2200 [facility] Administration Multivitamins/Minerals/Vitamin C 1 tab 07/01/20 10:00 07/07/20 14:18 Tab-A-Vit - PO 1 tab DAILY [facility] Administration Nystatin 1 applic 07/05/20 12:30 07/07/20 14:21 Mycostatin Cream - TP 1 applic BID [facility] Administration Pantoprazole Sodium 40 mg 07/01/20 10:00 07/07/20 14:16 Protonix - PO 40 mg DAILY [facility] Administration Pregabalin 150 mg 07/01/20 10:00 07/07/20 14:15 Lyrica - PO 150 mg BID [facility] Administration Rosuvastatin Calcium 40 mg 07/02/20 21:27 07/06/20 21:53 Crestor - PO 40 mg HS [facility] Administration Sodium Chloride 2 spray 07/06/20 07:40 07/06/20 10:28 [place] Nasal [place] - NS 2 sprays BID PRN Administration NASAL CONGESTION Tramadol HCl 50 mg 07/01/20 15:45 07/05/20 06:10 Ultram - PO 50 mg Q6H PRN Administration PAIN LEVEL 6-10 ASSESSMENT/PLAN: Problem List - Problems (1) Cellulitis of right anterior lower leg Assessment/Plan: improved negative for dvt. on apixiban 5mg bid on day 2 of 5 of augmentin 500mg bid Code(s): L03.115 - CELLULITIS OF RIGHT LOWER LIMB (2) Acute on chronic diastolic (congestive) heart failure Assessment/Plan: BNP 822. c/w IV lasix 40 daily per cardiology daily weights, strict I/Os 07/03 TTE: EF 55-60%, mild MR/ unchanged from 03/02 monitor weights, slightly up today but clinically improved Code(s): I50.33 - ACUTE ON CHRONIC DIASTOLIC (CONGESTIVE) HEART FAILURE (3) Leg swelling Assessment/Plan: negative for dvt Code(s): M79.89 - OTHER SPECIFIED SOFT TISSUE DISORDERS (4) COPD (chronic obstructive pulmonary disease) Assessment/Plan: lung sounds improved, no wheezing, on 3 liters nasal cannula (home oxygen dependent) on bronchodilators pulmonary following Code(s): J44.9 - CHRONIC OBSTRUCTIVE PULMONARY DISEASE, UNSPECIFIED (5) Atrial fibrillation Assessment/Plan: on toprol and eliquis monitor on tele Code(s): I48.91 - UNSPECIFIED ATRIAL FIBRILLATION (6) DVT prophylaxis Assessment/Plan: already on eliquis Code(s): Z29.9 - ENCOUNTER FOR PROPHYLACTIC MEASURES, UNSPECIFIED Visit type - Emergency Visit Emergency Visit: Yes ED Registration Date: 06/30/20 Care time: The patient presented to the Emergency Department on the above date and was hospitalized for further evaluation of their emergent condition. - New Patient This patient is new to me today: No - Critical Care Critical Care patient: No - Discharge Referral Referred to [facility] Med P.C.: No - Medication Review Med list reviewed for High Risk Meds patients 65 and older: Yes
[2020-07-07] MEDS: ROSUVASTATIN CA 20 MG TABLET (FP) PO SCH (22:06)
[2020-07-07] MEDS: LIDOCAINE PATCH REMOVAL MC SCH (22:09)
[2020-07-07] MEDS: SODIUM CHLORIDE NASAL SPRAY 44 ML BOTTLE NS PRN (22:12)
[2020-07-08] MEDS: LEVOTHYROXINE NA 50 MCG TABLET (FP) PO SCH (06:35)
--- NOTE | 2020-07-08 07:11 | PN ---
Progress Note, Physician Chief Complaint: sob, cough History of Present Illness: swelling and sob both signif improved vs DOA, though both persist coughing a lot no cp no syncope - Current Medication List Current Medications: Active Medications Acetaminophen (Tylenol -) 650 mg PO Q6H PRN PRN Reason: PAIN LEVEL 6-10 Last Admin: 07/05/20 06:11 Dose: 650 mg Documented by: Albuterol/Ipratropium (Duoneb -) 1 amp NEB RQID [facility] Last Admin: 07/07/20 19:51 Dose: 1 amp Documented by: Amoxicillin/Clavulanate Potassium (Augmentin - 500mg Tablet) 1 tab PO BID@0800,1730 [facility] Last Admin: 07/07/20 19:09 Dose: 1 tab Documented by: Apixaban (Eliquis -) 5 mg PO BID [facility] Last Admin: 07/07/20 22:06 Dose: 5 mg Documented by: Ascorbic Acid (Vitamin C -) 500 mg PO DAILY [facility] Last Admin: 07/07/20 14:18 Dose: 500 mg Documented by: Budesonide/Formoterol Fumarate (Symbicort 80/4.5mcg -) 1 puff IH BID [facility] Last Admin: 07/07/20 22:05 Dose: 1 puff Documented by: Escitalopram Oxalate (Lexapro -) 20 mg PO DAILY [facility] Last Admin: 07/07/20 14:15 Dose: 20 mg Documented by: Ferrous Sulfate (Feosol -) 325 mg PO DAILY [facility] Last Admin: 07/07/20 14:16 Dose: 325 mg Documented by: Furosemide (Lasix Injection -) 40 mg IVPUSH DAILY [facility] Last Admin: 07/07/20 14:19 Dose: 40 mg Documented by: Guaifenesin (Robitussin -) 10 ml PO Q6H PRN PRN Reason: COUGH Last Admin: 07/06/20 05:33 Dose: 10 ml Documented by: Levothyroxine Sodium (Synthroid -) 50 mcg PO DAILY@0700 [facility] Last Admin: 07/08/20 06:35 Dose: 50 mcg Documented by: Lidocaine (Lidoderm Patch -) 1 patch TP DAILY [facility] Last Admin: 07/07/20 14:20 Dose: 1 patch Documented by: Losartan Potassium (Cozaar -) 25 mg PO DAILY [facility] Last Admin: 07/07/20 14:15 Dose: 25 mg Documented by: Metoprolol Succinate (Toprol Xl -) 50 mg PO DAILY [facility] Last Admin: 07/07/20 14:18 Dose: 50 mg Documented by: Miscellaneous (Lidoderm Patch Removal) 1 each MC DAILY@2200 [facility] Last Admin: 07/07/20 22:09 Dose: 1 each Documented by: Multivitamins/Minerals/Vitamin C (Tab-A-Vit -) 1 tab PO DAILY [facility] Last Admin: 07/07/20 14:18 Dose: 1 tab Documented by: Nystatin (Mycostatin Cream -) 1 applic TP BID [facility] Last Admin: 07/07/20 22:06 Dose: 1 applic Documented by: Pantoprazole Sodium (Protonix -) 40 mg PO DAILY [facility] Last Admin: 07/07/20 14:16 Dose: 40 mg Documented by: Pregabalin (Lyrica -) 150 mg PO BID [facility] Last Admin: 07/07/20 22:06 Dose: 150 mg Documented by: Rosuvastatin Calcium (Crestor -) 40 mg PO HS [facility] Last Admin: 07/07/20 22:06 Dose: 40 mg Documented by: Sodium Chloride ([place] Nasal [place] -) 2 spray NS BID PRN PRN Reason: NASAL CONGESTION Last Admin: 07/07/20 22:12 Dose: 2 sprays Documented by: Tramadol HCl (Ultram -) 50 mg PO Q6H PRN PRN Reason: PAIN LEVEL 6-10 Last Admin: 07/05/20 06:10 Dose: 50 mg Documented by: - Objective Vital Signs: Vital Signs Temperature 98.3 F 07/08/20 02:00 Pulse Rate 109 H 07/08/20 02:00 Respiratory Rate 18 07/08/20 02:00 Blood Pressure 129/81 07/08/20 02:00 O2 Sat by Pulse Oximetry (%) 99 07/08/20 02:00 Constitutional: Yes: No Distress, Calm, Obese Cardiovascular: Yes: Pulse Irregular, S1, S2. No: JVD (in chair), Gallop, Murmur Respiratory: Yes: Regular, Diminished (bases), Rales (bases). No: Accessory Muscle Use Edema: Yes (mild nonpitting ankles) Neurological: Yes: Alert, Oriented Psychiatric: No: Agitated Labs: CBC, BMP 07/07/20 06:35 07/07/20 06:35 INR, PTT INR 1.36 (0.83-1.09) H 06/30/20 21:30 Assessment/Plan echo 06/2020 nl LV function, LA mildly dilated, mild MAC, mild MR, mild aortic sclerosis, mild AR IMP: PAF Acute on chronic diastolic CHF NSVT AR LE cellulitis HTN HLD Asthma REC: PAF: -stable, cont Eliquis and Toprol Acute on chronic diastolic CHF: -admit CXR clear -unclear precipitant, possibly infection/cellulitis -no signs acs -nl LV function on echo here -lasix 40 IV daily here. wt not declined--actually up 4 lbs. however BNP improved 800 to 100 and sob/edema improved, though not resolved. still coughing = ? asthma sx. increase lasix to 40 iv bid, may need 80 iv qd-bid if does not respond -dobutamine nuclear stress showed a partially reversible anteroapical perfusion defect. 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 Stress test findings d/w Dr Vargas at [facility]. Current perfusion defect is similar to results there in OCT 2019 (she additionally had a lateral wall defect on that exam) and underwent cath showing non-obstructive CAD. hence do not suspect obstructive CAD at this time--cont med mgmt NSVT: -nl EF on echo -Keep K+ and Mg2- >4 and 2 respectively LE cellulitis: improving -as per primary team HTN: -stable HLD: -stable, outpatient f/u Asthma: -has wheezing and productive cough, plans per pulm
--- NOTE | 2020-07-08 07:44 | PN ---
Physical Exam: SUBJECTIVE: Patient seen and examined OBJECTIVE: Vital Signs Period Temp Pulse Resp BP Sys/Bocanegra Pulse Ox Last 24 Hr 97.5 F-98.4 F 76-111 18-19 101-129/43-81 97-99 GENERAL: The patient is awake, alert, and fully oriented, in no acute distress. HEAD: Normal with no signs of trauma. EYES: PERRL, extraocular movements intact, sclera anicteric, conjunctiva clear. No ptosis. ENT: oropharynx clear without exudates, moist mucous membranes. NECK: Trachea midline, full range of motion, supple. LUNGS diminished breath sounds bilaterally, no breath sounds at the lower lung mosquera bilaterally HEART: Regular rate and rhythm, S1, S2 without murmur, rub or gallop. ABDOMEN: Soft, nontender, nondistended, normoactive bowel sounds, no guarding, no rebound, no hepatosplenomegaly, no masses. EXTREMITIES: 2+ pulses, warm, well-perfused, positive trace LE edema bilaterally. No open wounds or erythema of the skin NEUROLOGICAL: Cranial nerves II through XII grossly intact. Normal speech, gait not observed. PSYCH: Normal mood, normal affect. SKIN: Warm, dry, normal turgor, no rashes or lesions noted Laboratory Results - last 24 hr 07/07/20 07/07/20 06:35 06:35 WBC 4.6 RBC 3.34 L Hgb 10.1 L Hct 31.3 L MCV 93.5 MCH 30.3 MCHC 32.4 RDW 14.9 Plt Count 157 MPV 8.9 Absolute Neuts (auto) 2.3 Neutrophils % 50.4 Lymphocytes % 33.1 Monocytes % 12.7 H Eosinophils % 3.4 Basophils % 0.4 Nucleated RBC % 0 Sodium 141 Potassium 4.0 Chloride 103 Carbon Dioxide 34 H Anion Gap 4 L BUN 17.5 Creatinine 0.7 Est GFR (CKD-EPI)AfAm 94.18 Est GFR (CKD-EPI)NonAf 81.26 Random Glucose 84 Calcium 8.6 Magnesium 1.9 Total Bilirubin 0.4 AST 14 L ALT 21 Alkaline Phosphatase 46 Total Protein 5.6 L Albumin 2.8 L Active Medications Generic Name Dose Route Start Last Admin Trade Name Freq PRN Reason Stop Dose Admin Acetaminophen 650 mg 07/01/20 15:46 07/05/20 06:11 Tylenol - PO 650 mg Q6H PRN Administration PAIN LEVEL 6-10 Albuterol/Ipratropium 1 amp 07/02/20 16:00 07/07/20 19:51 Duoneb - NEB 1 amp RQID NICOLE Administration Amoxicillin/Clavulanate Potassium 1 tab 07/05/20 17:30 07/07/20 19:09 Augmentin - 500mg Tablet PO 1 tab BID@0800,1730 NICOLE Administration Apixaban 5 mg 07/01/20 10:00 07/07/20 22:06 Eliquis - PO 5 mg BID NICOLE Administration Ascorbic Acid 500 mg 07/01/20 10:00 07/07/20 14:18 Vitamin C - PO 500 mg DAILY NICOLE Administration Budesonide/Formoterol Fumarate 1 puff 07/01/20 10:00 07/07/20 22:05 Symbicort 80/4.5mcg - IH 1 puff BID NICOLE Administration Escitalopram Oxalate 20 mg 07/01/20 10:00 07/07/20 14:15 Lexapro - PO 20 mg DAILY NICOLE Administration Ferrous Sulfate 325 mg 07/01/20 10:00 07/07/20 14:16 Feosol - PO 325 mg DAILY NICOLE Administration Furosemide 40 mg 07/05/20 14:00 07/07/20 14:19 Lasix Injection - IVPUSH 40 mg DAILY NICOLE Administration Guaifenesin 10 ml 07/05/20 05:59 07/06/20 05:33 Robitussin - PO 10 ml Q6H PRN Administration COUGH Levothyroxine Sodium 50 mcg 07/01/20 10:00 07/08/20 06:35 Synthroid - PO 50 mcg DAILY@0700 NICOLE Administration Lidocaine 1 patch 07/01/20 11:15 07/07/20 14:20 Lidoderm Patch - TP 1 patch DAILY NICOLE Administration Losartan Potassium 25 mg 07/03/20 10:00 07/07/20 14:15 Cozaar - PO 25 mg DAILY NICOLE Administration Metoprolol Succinate 50 mg 07/01/20 10:00 07/07/20 14:18 Toprol Xl - PO 50 mg DAILY NICOLE Administration Miscellaneous 1 each 07/01/20 22:00 07/07/20 22:09 Lidoderm Patch Removal MC 1 each DAILY@2200 NICOLE Administration Multivitamins/Minerals/Vitamin C 1 tab 07/01/20 10:00 07/07/20 14:18 Tab-A-Vit - PO 1 tab DAILY NICOLE Administration Nystatin 1 applic 07/05/20 12:30 07/07/20 22:06 Mycostatin Cream - TP 1 applic BID NICOLE Administration Pantoprazole Sodium 40 mg 07/01/20 10:00 07/07/20 14:16 Protonix - PO 40 mg DAILY NICOLE Administration Pregabalin 150 mg 07/01/20 10:00 07/07/20 22:06 Lyrica - PO 150 mg BID NICOLE Administration Rosuvastatin Calcium 40 mg 07/02/20 21:27 07/07/20 22:06 Crestor - PO 40 mg HS NICOLE Administration Sodium Chloride 2 spray 07/06/20 07:40 07/07/20 22:12 [place] Nasal [place] - NS 2 sprays BID PRN Administration NASAL CONGESTION Tramadol HCl 50 mg 07/01/20 15:45 07/05/20 06:10 Ultram - PO 50 mg Q6H PRN Administration PAIN LEVEL 6-10 ASSESSMENT/PLAN: Patient is an 80 year old female with a significant past medical history of hypertension, hyperlipidemia, COPD on 3L NC, CAD, atrial fibrillation (on eliquis), parkinson, hypothyroidism, breast cancer sp lumpectomy, chemo, radiation 10 years ago, 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 She presents to the ED on 06/30 with BLE swelling, worse in RLE, associated with numbness, weakness and pain x 2 weeks. She also endorses dyspnea with mild exertion such as walking up and down the stairs x several days. Patient is being admitted for acute on chronic diastolic chf exacerbation, RLE celluliitis. She was also found to have mild wheezing. Started on lasix IV by cardiology for increased in weights and dyspnea. weights slightly up today but clinically improved. less edema of lower extremities. dobutamine nuclear stress showed a partially reversible anteroapical perfusion defect. 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 Current perfusion defect is similar to results there in OCT 2019 (she additionally had a lateral wall defect on that exam) and underwent cath showing non-obstructive CAD. Cardiology does not suspect obstructive CAD at this time and med mgmt recommended (1) Cellulitis of right anterior lower leg on oral augmentin now bid day 3/5 x 5 days negative for dvt. on apixiban 5mg bid (2) Acute on chronic diastolic (congestive) heart failure c/w IV lasix 40 daily per cardiology daily weights, strict I/Os 07/03 TTE: EF 55-60%, mild MR/ unchanged from 03/02 (3) Leg swelling Assessment/Plan: negative for DVT (4) COPD (chronic obstructive pulmonary disease) lung sounds improved, no wheezing, on 3 liters nasal cannula (home oxygen dependent) on bronchodilators pulmonary following (5) Atrial fibrillation Assessment/Plan: on toprol and eliquis monitor on tele (6) DVT prophylaxis Assessment/Plan: already on eliquis (7) Dispo DC once cleared from cardiology standpoint Visit type - Emergency Visit Emergency Visit: No - New Patient This patient is new to me today: Yes Date on this admission: 07/08/20 - Critical Care Critical Care patient: No - Discharge Referral Referred to [facility] No - Medication Review Med list reviewed for High Risk Meds patients 65 and older: Yes (will discontinue tramadol)
--- NOTE | 2020-07-08 07:48 | PN ---
Progress Note, Physician History of Present Illness: pulmonary alert,comfortable,nad,-sob - Current Medication List Current Medications: Active Medications Acetaminophen (Tylenol -) 650 mg PO Q6H PRN PRN Reason: PAIN LEVEL 6-10 Last Admin: 07/05/20 06:11 Dose: 650 mg Documented by: Albuterol/Ipratropium (Duoneb -) 1 amp NEB RQID [facility] Last Admin: 07/07/20 19:51 Dose: 1 amp Documented by: Amoxicillin/Clavulanate Potassium (Augmentin - 500mg Tablet) 1 tab PO BID@0800,1730 [facility] Last Admin: 07/07/20 19:09 Dose: 1 tab Documented by: Apixaban (Eliquis -) 5 mg PO BID [facility] Last Admin: 07/07/20 22:06 Dose: 5 mg Documented by: Ascorbic Acid (Vitamin C -) 500 mg PO DAILY [facility] Last Admin: 07/07/20 14:18 Dose: 500 mg Documented by: Budesonide/Formoterol Fumarate (Symbicort 80/4.5mcg -) 1 puff IH BID [facility] Last Admin: 07/07/20 22:05 Dose: 1 puff Documented by: Escitalopram Oxalate (Lexapro -) 20 mg PO DAILY [facility] Last Admin: 07/07/20 14:15 Dose: 20 mg Documented by: Ferrous Sulfate (Feosol -) 325 mg PO DAILY [facility] Last Admin: 07/07/20 14:16 Dose: 325 mg Documented by: Furosemide (Lasix Injection -) 40 mg IVPUSH DAILY [facility] Last Admin: 07/07/20 14:19 Dose: 40 mg Documented by: Guaifenesin (Robitussin -) 10 ml PO Q6H PRN PRN Reason: COUGH Last Admin: 07/06/20 05:33 Dose: 10 ml Documented by: Levothyroxine Sodium (Synthroid -) 50 mcg PO DAILY@0700 [facility] Last Admin: 07/08/20 06:35 Dose: 50 mcg Documented by: Lidocaine (Lidoderm Patch -) 1 patch TP DAILY [facility] Last Admin: 07/07/20 14:20 Dose: 1 patch Documented by: Losartan Potassium (Cozaar -) 25 mg PO DAILY [facility] Last Admin: 07/07/20 14:15 Dose: 25 mg Documented by: Metoprolol Succinate (Toprol Xl -) 50 mg PO DAILY [facility] Last Admin: 07/07/20 14:18 Dose: 50 mg Documented by: Miscellaneous (Lidoderm Patch Removal) 1 each MC DAILY@2200 [facility] Last Admin: 07/07/20 22:09 Dose: 1 each Documented by: Multivitamins/Minerals/Vitamin C (Tab-A-Vit -) 1 tab PO DAILY [facility] Last Admin: 07/07/20 14:18 Dose: 1 tab Documented by: Nystatin (Mycostatin Cream -) 1 applic TP BID [facility] Last Admin: 07/07/20 22:06 Dose: 1 applic Documented by: Pantoprazole Sodium (Protonix -) 40 mg PO DAILY [facility] Last Admin: 07/07/20 14:16 Dose: 40 mg Documented by: Pregabalin (Lyrica -) 150 mg PO BID [facility] Last Admin: 07/07/20 22:06 Dose: 150 mg Documented by: Rosuvastatin Calcium (Crestor -) 40 mg PO HS [facility] Last Admin: 07/07/20 22:06 Dose: 40 mg Documented by: Sodium Chloride ([place] Nasal [place] -) 2 spray NS BID PRN PRN Reason: NASAL CONGESTION Last Admin: 07/07/20 22:12 Dose: 2 sprays Documented by: Tramadol HCl (Ultram -) 50 mg PO Q6H PRN PRN Reason: PAIN LEVEL 6-10 Last Admin: 07/05/20 06:10 Dose: 50 mg Documented by: - Objective Vital Signs: Vital Signs Temperature 98.3 F 07/08/20 02:00 Pulse Rate 109 H 07/08/20 02:00 Respiratory Rate 18 07/08/20 02:00 Blood Pressure 129/81 07/08/20 02:00 O2 Sat by Pulse Oximetry (%) 99 07/08/20 02:00 Constitutional: Yes: Well Nourished, Calm Eyes: Yes: WNL HENT: Yes: WNL Neck: Yes: WNL Cardiovascular: Yes: Pulse Irregular, S1, S2 Respiratory: Yes: CTA Bilaterally Gastrointestinal: Yes: Normal Bowel Sounds, Soft Extremities: Yes: WNL Edema: Yes Labs: Assessment/Plan A/P Acute on Chronic Diastolic Heart Failure improving Paroxysmal Atrial Fibrillation Aortic Regurgitation Asthma HTN Hyperlipidemia - inhaled bronchodilators - lasix - monitor urine output, creatinine - daily weights - O2 to keep SpO2 >90% - rate controlled - anticoagulation DR SAWYER
[2020-07-08] MEDS ORDERED: PT OWN MED DRAWER 7, Y5N ONE (08:17)
[2020-07-08] MEDS: ALBUTEROL SO4 2.5/IPRATROPIUM 0.5 INH SOL 3 ML VIAL.NEB. NEB SCH ×4 (08:55→19:30)
[2020-07-08] MEDS ORDERED: ESCITALOPRAM OXALATE 10 MG TABLET ONE (09:08)
[2020-07-08] MEDS: AMOX TR/POT CLAV 500MG/125MG TABLETS (FP) PO SCH ×2 (09:22→17:19)
[2020-07-08] MEDS: ASCORBIC ACID 500 MG TABLET (FP) PO SCH (09:22)
[2020-07-08] MEDS: MULTIVITAMINS (DAILY MVI) TABLET (FP) PO SCH (09:22)
[2020-07-08] MEDS: PREGABALIN 75 MG CAPSULE PO SCH ×2 (09:22→21:23)
[2020-07-08] MEDS: PANTOPRAZOLE 40 MG TABLET PO SCH (09:22)
[2020-07-08] MEDS: ESCITALOPRAM OXALATE 20 MG TABLET PO SCH (09:23)
[2020-07-08] MEDS: APIXABAN 5 MG TABLET PO SCH ×2 (09:23→21:24)
[2020-07-08] MEDS: FERROUS SO4 325 MG TABLET (FP) PO SCH (09:23)
[2020-07-08] MEDS: LOSARTAN POTASSIUM 25 MG TABLET PO SCH (09:23)
[2020-07-08] MEDS: FUROSEMIDE 40 MG/4 ML INJECTABLE VIAL IVPUSH SCH ×2 (09:23→14:32)
[2020-07-08] MEDS: BUDESONIDE/FORMETEROL FUMARATE 80/4.5 mcg INHALER IH SCH ×2 (09:24→21:24)
[2020-07-08] MEDS: SODIUM CHLORIDE NASAL SPRAY 44 ML BOTTLE NS PRN ×2 (09:24→21:24)
[2020-07-08] MEDS: LIDOCAINE 5% TOPICAL PATCH TP SCH (09:25)
[2020-07-08] MEDS: NYSTATIN 100,000 UNIT/GM TOPICAL CREAM 15 GM TUBE TP SCH ×2 (09:25→21:24)
[2020-07-08 11:03] LABS: POTASSIUM 4.1 mmol/L (3.5-5.1)
[2020-07-08 11:06] LABS: ALBUMIN 3.2 g/dl (3.4-5.0); CALCIUM 8.8 mg/dL (8.5-10.1)
[2020-07-08 11:08] LABS: BLOOD UREA NITROGEN 21.3 mg/dL (7-18); MAGNESIUM 1.9 mg/dL (1.8-2.4)
[2020-07-08 11:11] LABS: BILIRUBIN,TOTAL 0.5 mg/dL (0.2-1); CREATININE 0.7 mg/dL (0.55-1.3); TOT PROT 6.5 g/dl (6.4-8.2)
--- NOTE | 2020-07-08 13:22 | PN ---
Progress Note, Physician History of Present Illness: stable comfortable still on nasal o2 - Current Medication List Current Medications: Active Medications Acetaminophen (Tylenol -) 650 mg PO Q6H PRN PRN Reason: PAIN LEVEL 6-10 Last Admin: 07/05/20 06:11 Dose: 650 mg Documented by: Albuterol/Ipratropium (Duoneb -) 1 amp NEB RQID [facility] Last Admin: 07/08/20 12:05 Dose: 1 amp Documented by: Amoxicillin/Clavulanate Potassium (Augmentin - 500mg Tablet) 1 tab PO BID@0800,1730 [facility] Last Admin: 07/08/20 09:22 Dose: 1 tab Documented by: Apixaban (Eliquis -) 5 mg PO BID [facility] Last Admin: 07/08/20 09:23 Dose: 5 mg Documented by: Ascorbic Acid (Vitamin C -) 500 mg PO DAILY [facility] Last Admin: 07/08/20 09:22 Dose: 500 mg Documented by: Budesonide/Formoterol Fumarate (Symbicort 80/4.5mcg -) 1 puff IH BID [facility] Last Admin: 07/08/20 09:24 Dose: 1 puff Documented by: Escitalopram Oxalate (Lexapro -) 20 mg PO DAILY [facility] Last Admin: 07/08/20 09:23 Dose: 20 mg Documented by: Ferrous Sulfate (Feosol -) 325 mg PO DAILY [facility] Last Admin: 07/08/20 09:23 Dose: 325 mg Documented by: Furosemide (Lasix Injection -) 40 mg IVPUSH BID@0600,1400 [facility] Guaifenesin (Robitussin -) 10 ml PO Q6H PRN PRN Reason: COUGH Last Admin: 07/06/20 05:33 Dose: 10 ml Documented by: Levothyroxine Sodium (Synthroid -) 50 mcg PO DAILY@0700 [facility] Last Admin: 07/08/20 06:35 Dose: 50 mcg Documented by: Lidocaine (Lidoderm Patch -) 1 patch TP DAILY [facility] Last Admin: 07/08/20 09:25 Dose: 1 patch Documented by: Losartan Potassium (Cozaar -) 25 mg PO DAILY [facility] Last Admin: 07/08/20 09:23 Dose: 25 mg Documented by: Metoprolol Succinate (Toprol Xl -) 50 mg PO DAILY [facility] Last Admin: 07/08/20 09:23 Dose: 50 mg Documented by: Miscellaneous (Lidoderm Patch Removal) 1 each MC DAILY@2200 [facility] Last Admin: 07/07/20 22:09 Dose: 1 each Documented by: Multivitamins/Minerals/Vitamin C (Tab-A-Vit -) 1 tab PO DAILY [facility] Last Admin: 07/08/20 09:22 Dose: 1 tab Documented by: Nystatin (Mycostatin Cream -) 1 applic TP BID [facility] Last Admin: 07/08/20 09:25 Dose: 1 applic Documented by: Pantoprazole Sodium (Protonix -) 40 mg PO DAILY [facility] Last Admin: 07/08/20 09:22 Dose: 40 mg Documented by: Pregabalin (Lyrica -) 150 mg PO BID [facility] Last Admin: 07/08/20 09:22 Dose: 150 mg Documented by: Rosuvastatin Calcium (Crestor -) 40 mg PO HS [facility] Last Admin: 07/07/20 22:06 Dose: 40 mg Documented by: Sodium Chloride ([place] Nasal [place] -) 2 spray NS BID PRN PRN Reason: NASAL CONGESTION Last Admin: 07/08/20 09:24 Dose: 2 sprays Documented by: Tramadol HCl (Ultram -) 50 mg PO Q6H PRN PRN Reason: PAIN LEVEL 6-10 Last Admin: 07/05/20 06:10 Dose: 50 mg Documented by: - Objective Vital Signs: Vital Signs Temperature 98.0 F 07/08/20 09:42 Pulse Rate 81 07/08/20 09:42 Respiratory Rate 19 07/08/20 09:42 Blood Pressure 112/64 07/08/20 09:42 O2 Sat by Pulse Oximetry (%) 95 07/08/20 09:42 Constitutional: Yes: No Distress, Calm Cardiovascular: Yes: S1, S2 Respiratory: Yes: Regular, CTA Bilaterally Gastrointestinal: Yes: Normal Bowel Sounds, Soft Musculoskeletal: Yes: WNL Extremities: Yes: Erythema (resolved), Other Neurological: Yes: Alert, Oriented Psychiatric: Yes: Alert, Oriented Labs: CBC, BMP 07/07/20 06:35 07/08/20 10:10 INR, PTT INR 1.36 (0.83-1.09) H 06/30/20 21:30 Assessment/Plan Problem List - Problems (1) Acute on chronic diastolic (congestive) heart failure Code(s): I50.33 - ACUTE ON CHRONIC DIASTOLIC (CONGESTIVE) HEART FAILURE (2) Hip joint replacement status Code(s): Z96.649 - PRESENCE OF UNSPECIFIED ARTIFICIAL HIP JOINT (3) Leg swelling Code(s): M79.89 - OTHER SPECIFIED SOFT TISSUE DISORDERS (4) On home oxygen therapy Code(s): Z99.81 - DEPENDENCE ON SUPPLEMENTAL OXYGEN (5) Parkinson disease Code(s): G20 - PARKINSON'S DISEASE (6) S/p total knee replacement, bilateral Code(s): Z96.653 - PRESENCE OF ARTIFICIAL KNEE JOINT, BILATERAL (7) Atrial fibrillation Code(s): I48.91 - UNSPECIFIED ATRIAL FIBRILLATION (8) CAD (coronary artery disease) Code(s): I25.10 - ATHSCL HEART DISEASE OF [place] CORONARY ARTERY W/O ANG PCTRS (9) COPD (chronic obstructive pulmonary disease) Code(s): J44.9 - CHRONIC OBSTRUCTIVE PULMONARY DISEASE, UNSPECIFIED (10) Cellulitis Code(s): L03.90 - CELLULITIS, UNSPECIFIED (11) GERD (gastroesophageal reflux disease) Code(s): K21.9 - GASTRO-ESOPHAGEAL REFLUX DISEASE WITHOUT ESOPHAGITIS (12) HLD (hyperlipidemia) Code(s): E78.5 - HYPERLIPIDEMIA, UNSPECIFIED (13) HTN (hypertension) Code(s): I10 - ESSENTIAL (PRIMARY) HYPERTENSION Qualifiers: Hypertension type: essential hypertension Qualified Code(s): I10 - Essential (primary) hypertension (14) History of breast cancer Code(s): Z85.3 - PERSONAL HISTORY OF MALIGNANT NEOPLASM OF BREAST Assessment/Plan RLE cellulitis b/l LE edema Acute on chronic CHF COPD on home O2 HTN HLD CAD PAF Parkinsons hypothyroidism hx of Breast CA s/p lumpectomy/RT/chemo s/p b/l TKR s/p Lt THR plan elevation of the legs oral augmentin 500 mg po bid for 2 more days
[2020-07-08 16:26] VITALS: BMI 49.1
[2020-07-08] MEDS: ROSUVASTATIN CA 20 MG TABLET (FP) PO SCH (21:23)
[2020-07-08] MEDS: LIDOCAINE PATCH REMOVAL MC SCH (21:24)
[2020-07-08] MEDS: guaiFENesin 200 MG/10 ML 10 ML UNIT-DOSE CUPS PO PRN (21:26)
[2020-07-08] MEDS: ACETAMINOPHEN 325 MG TABLET (FP) PO PRN (21:26)
[2020-07-09] MEDS: guaiFENesin 200 MG/10 ML 10 ML UNIT-DOSE CUPS PO PRN ×2 (02:06→21:23)
[2020-07-09] MEDS: ACETAMINOPHEN 325 MG TABLET (FP) PO PRN ×2 (02:06→21:23)
[2020-07-09] MEDS: LEVOTHYROXINE NA 50 MCG TABLET (FP) PO SCH (06:26)
[2020-07-09] MEDS: FUROSEMIDE 40 MG/4 ML INJECTABLE VIAL IVPUSH SCH ×2 (06:31→14:08)
--- NOTE | 2020-07-09 06:50 | PN ---
Progress Note, Physician History of Present Illness: pulmonary alert,c/o sob,cough - Current Medication List Current Medications: Active Medications Acetaminophen (Tylenol -) 650 mg PO Q6H PRN PRN Reason: PAIN LEVEL 6-10 Last Admin: 07/09/20 02:06 Dose: 650 mg Documented by: Albuterol/Ipratropium (Duoneb -) 1 amp NEB RQID [facility] Last Admin: 07/08/20 19:30 Dose: 1 amp Documented by: Amoxicillin/Clavulanate Potassium (Augmentin - 500mg Tablet) 1 tab PO BID@0800,1730 [facility] Last Admin: 07/08/20 17:19 Dose: 1 tab Documented by: Apixaban (Eliquis -) 5 mg PO BID [facility] Last Admin: 07/08/20 21:24 Dose: 5 mg Documented by: Ascorbic Acid (Vitamin C -) 500 mg PO DAILY [facility] Last Admin: 07/08/20 09:22 Dose: 500 mg Documented by: Benzocaine/Menthol (Cepacol Lozenge -) 1 each MM PRN PRN PRN Reason: SORE THROAT Budesonide/Formoterol Fumarate (Symbicort 80/4.5mcg -) 1 puff IH BID [facility] Last Admin: 07/08/20 21:24 Dose: 1 puff Documented by: Escitalopram Oxalate (Lexapro -) 20 mg PO DAILY [facility] Last Admin: 07/08/20 09:23 Dose: 20 mg Documented by: Ferrous Sulfate (Feosol -) 325 mg PO DAILY [facility] Last Admin: 07/08/20 09:23 Dose: 325 mg Documented by: Furosemide (Lasix Injection -) 40 mg IVPUSH BID@0600,1400 [facility] Last Admin: 07/09/20 06:31 Dose: 40 mg Documented by: Guaifenesin (Robitussin -) 10 ml PO Q6H PRN PRN Reason: COUGH Last Admin: 07/09/20 02:06 Dose: 10 ml Documented by: Levothyroxine Sodium (Synthroid -) 50 mcg PO DAILY@0700 [facility] Last Admin: 07/09/20 06:26 Dose: 50 mcg Documented by: Lidocaine (Lidoderm Patch -) 1 patch TP DAILY [facility] Last Admin: 07/08/20 09:25 Dose: 1 patch Documented by: Losartan Potassium (Cozaar -) 25 mg PO DAILY [facility] Last Admin: 07/08/20 09:23 Dose: 25 mg Documented by: Metoprolol Succinate (Toprol Xl -) 50 mg PO DAILY [facility] Last Admin: 07/08/20 09:23 Dose: 50 mg Documented by: Miscellaneous (Lidoderm Patch Removal) 1 each MC DAILY@2200 [facility] Last Admin: 07/08/20 21:24 Dose: 1 each Documented by: Multivitamins/Minerals/Vitamin C (Tab-A-Vit -) 1 tab PO DAILY [facility] Last Admin: 07/08/20 09:22 Dose: 1 tab Documented by: Nystatin (Mycostatin Cream -) 1 applic TP BID [facility] Last Admin: 07/08/20 21:24 Dose: 1 applic Documented by: Pantoprazole Sodium (Protonix -) 40 mg PO DAILY [facility] Last Admin: 07/08/20 09:22 Dose: 40 mg Documented by: Pregabalin (Lyrica -) 150 mg PO BID [facility] Last Admin: 07/08/20 21:23 Dose: 150 mg Documented by: Rosuvastatin Calcium (Crestor -) 40 mg PO HS [facility] Last Admin: 07/08/20 21:23 Dose: 40 mg Documented by: Sodium Chloride ([place] Nasal [place] -) 2 spray NS BID PRN PRN Reason: NASAL CONGESTION Last Admin: 07/08/20 21:24 Dose: 2 sprays Documented by: - Objective Vital Signs: Vital Signs Temperature 98.0 F 07/09/20 01:00 EST Pulse Rate 98 H 07/09/20 01:00 EST Respiratory Rate 20 07/09/20 01:00 EST Blood Pressure 93/49 L 07/09/20 01:00 EST O2 Sat by Pulse Oximetry (%) 93 L 07/09/20 01:00 EST Constitutional: Yes: Well Nourished, Calm Eyes: Yes: WNL HENT: Yes: WNL Neck: Yes: WNL Cardiovascular: Yes: Pulse Irregular, S1, S2 Respiratory: Yes: Rales (bibasailr rales r>l) Gastrointestinal: Yes: Normal Bowel Sounds, Soft Extremities: Yes: WNL Edema: Yes Labs: CBC, BMP Assessment/Plan A/P Acute on Chronic Diastolic Heart Failure Paroxysmal Atrial Fibrillation Aortic Regurgitation Asthma HTN Hyperlipidemia - inhaled bronchodilators - lasix - monitor urine output, creatinine - daily weights - O2 to keep SpO2 >90% - rate controlled - anticoagulation - chest x-ray - robitussin DR SAWYER
[2020-07-09] MEDS: BENZOCAINE/MENTH/CETYLPYRD CL 1 EACH LOZENGE MM PRN ×2 (06:59→21:23)
[2020-07-09] MEDS ORDERED: PT OWN MED DRAWER 7, Y5N ONE ×2 (08:00→16:29)
[2020-07-09] MEDS: ALBUTEROL SO4 2.5/IPRATROPIUM 0.5 INH SOL 3 ML VIAL.NEB. NEB SCH ×4 (08:10→20:33)
[2020-07-09] MEDS: AMOX TR/POT CLAV 500MG/125MG TABLETS (FP) PO SCH ×2 (08:22→17:21)
--- NOTE | 2020-07-09 09:06 | PN ---
Physical Exam: SUBJECTIVE: Patient seen and examined. Continues to have persistent coughing episodes. Asked for cough suppressant. OBJECTIVE: Vital Signs Period Temp Pulse Resp BP Sys/Bocanegra Pulse Ox Last 24 Hr 97.6 F-98.1 F 98-108 20-20 93-116/49-65 93-95 GENERAL: The patient is awake, alert, and fully oriented, in no acute distress. HEAD: Normal with no signs of trauma. EYES: PERRL, extraocular movements intact, sclera anicteric, conjunctiva clear. No ptosis. ENT: Ears normal, nares patent, oropharynx clear without exudates, moist mucous membranes. NECK: Trachea midline, full range of motion, supple. LUNGS: crackles at the lower lung mosquera bilaterally; more pronounced on the right; diminished breath sounds throughout HEART: Regular rate and rhythm, S1, S2 without murmur, rub or gallop. ABDOMEN: Soft, nontender, nondistended, normoactive bowel sounds, no guarding, no rebound, no hepatosplenomegaly, no masses. EXTREMITIES: 2+ pulses, warm, well-perfused, trace bilateral lower ext edema NEUROLOGICAL: Cranial nerves II through XII grossly intact. Normal speech, gait not observed. PSYCH: Normal mood, normal affect. SKIN: Warm, dry, normal turgor, no rashes or lesions noted Laboratory Results - last 24 hr 07/08/20 10:10 Sodium 142 Potassium 4.1 Chloride 103 Carbon Dioxide 34 H Anion Gap 5 L BUN 21.3 H Creatinine 0.7 Est GFR (CKD-EPI)AfAm 94.18 Est GFR (CKD-EPI)NonAf 81.26 Random Glucose 94 Calcium 8.8 Magnesium 1.9 Total Bilirubin 0.5 AST 20 ALT 26 Alkaline Phosphatase 57 Total Protein 6.5 Albumin 3.2 L Active Medications Generic Name Dose Route Start Last Admin Trade Name Freq PRN Reason Stop Dose Admin Acetaminophen 650 mg 07/01/20 15:46 07/09/20 02:06 Tylenol - PO 650 mg Q6H PRN Administration PAIN LEVEL 6-10 Albuterol/Ipratropium 1 amp 07/02/20 16:00 07/09/20 08:10 Duoneb - NEB 1 amp RQID NICOLE Administration Amoxicillin/Clavulanate Potassium 1 tab 07/05/20 17:30 07/09/20 08:22 Augmentin - 500mg Tablet PO 1 tab BID@0800,1730 NICOLE Administration Apixaban 5 mg 07/01/20 10:00 07/08/20 21:24 Eliquis - PO 5 mg BID NICOLE Administration Ascorbic Acid 500 mg 07/01/20 10:00 07/08/20 09:22 Vitamin C - PO 500 mg DAILY NICOLE Administration Benzocaine/Menthol 1 each 07/09/20 06:46 07/09/20 06:59 Cepacol Lozenge - MM 1 each PRN PRN Administration SORE THROAT Budesonide/Formoterol Fumarate 1 puff 07/01/20 10:00 07/08/20 21:24 Symbicort 80/4.5mcg - IH 1 puff BID NICOLE Administration Escitalopram Oxalate 20 mg 07/01/20 10:00 07/08/20 09:23 Lexapro - PO 20 mg DAILY NICOLE Administration Ferrous Sulfate 325 mg 07/01/20 10:00 07/08/20 09:23 Feosol - PO 325 mg DAILY NICOLE Administration Furosemide 40 mg 07/08/20 14:00 07/09/20 06:31 Lasix Injection - IVPUSH 40 mg BID@0600,1400 NICOLE Administration Guaifenesin 10 ml 07/05/20 05:59 07/09/20 02:06 Robitussin - PO 10 ml Q6H PRN Administration COUGH Levothyroxine Sodium 50 mcg 07/01/20 10:00 07/09/20 06:26 Synthroid - PO 50 mcg DAILY@0700 NICOLE Administration Lidocaine 1 patch 07/01/20 11:15 07/08/20 09:25 Lidoderm Patch - TP 1 patch DAILY NICOLE Administration Losartan Potassium 25 mg 07/03/20 10:00 07/08/20 09:23 Cozaar - PO 25 mg DAILY NICOLE Administration Metoprolol Succinate 50 mg 07/01/20 10:00 07/08/20 09:23 Toprol Xl - PO 50 mg DAILY NICOLE Administration Miscellaneous 1 each 07/01/20 22:00 07/08/20 21:24 Lidoderm Patch Removal MC 1 each DAILY@2200 NICOLE Administration Multivitamins/Minerals/Vitamin C 1 tab 07/01/20 10:00 07/08/20 09:22 Tab-A-Vit - PO 1 tab DAILY NICOLE Administration Nystatin 1 applic 07/05/20 12:30 07/08/20 21:24 Mycostatin Cream - TP 1 applic BID NICOLE Administration Pantoprazole Sodium 40 mg 07/01/20 10:00 07/08/20 09:22 Protonix - PO 40 mg DAILY NICOLE Administration Pregabalin 150 mg 07/01/20 10:00 07/08/20 21:23 Lyrica - PO 150 mg BID NICOLE Administration Rosuvastatin Calcium 40 mg 07/02/20 21:27 07/08/20 21:23 Crestor - PO 40 mg HS NICOLE Administration Sodium Chloride 2 spray 07/06/20 07:40 07/08/20 21:24 [place] Nasal [place] - NS 2 sprays BID PRN Administration NASAL CONGESTION ASSESSMENT/PLAN: ASSESSMENT/PLAN: Patient is an 80 year old female with a significant past medical history of hypertension, hyperlipidemia, COPD on 3L NC, CAD, atrial fibrillation (on eliquis), parkinson, hypothyroidism, breast cancer sp lumpectomy, chemo, radiation 10 years ago, 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 She presents to the ED on 06/30 with BLE swelling, worse in RLE, associated with numbness, weakness and pain x 2 weeks. She also endorses dyspnea with mild exertion such as walking up and down the stairs x several days. Patient is being admitted for acute on chronic diastolic chf exacerbation, RLE celluliitis. She was also found to have mild wheezing. Started on lasix IV by cardiology for increased in weights and dyspnea. She continued to have coughing episodes and cardiology increased diuretic therapy. Dobutamine nuclear stress showed a partially reversible anteroapical perfusion defect consistent with prior infarc with mild to moderate yrn-infarct ischemia. Current perfusion defect is similar to results there in OCT 2019 (she additionally had a lateral wall defect on that exam) and underwent cath showing non-obstructive CAD. Cardiology does not suspect obstructive CAD at this time and med mgmt recommended (1) Cellulitis of right anterior lower leg on oral augmentin now bid day 4/5 x 5 days negative for dvt. (2) Acute on chronic diastolic (congestive) heart failure Lasix increased by cardiology daily weights, strict I/Os 4 lb dec in weight today 07/03 TTE: EF 55-60%, mild MR/ unchanged from 03/02 coughing episodes likely from lung congestion; one dose robitussin AC. prn robitussin also in place (3) Leg swelling negative for DVT on apixaban (4) COPD (chronic obstructive pulmonary disease) lung sounds improved, no wheezing, on 3 liters nasal cannula (home oxygen dependent) on bronchodilators pulmonary following (5) Atrial fibrillation with RVR on toprol and eliquis monitor on tele; cardiology following and optimizing meds (6) DVT prophylaxis already on eliquis 5 mg bid (7) Dispo DC once cleared from cardiology standpoint Visit type - Emergency Visit Emergency Visit: No - New Patient This patient is new to me today: No - Critical Care Critical Care patient: No - Discharge Referral Referred to [facility] Med P.C.: No - Medication Review Med list reviewed for High Risk Meds patients 65 and older: Yes
[2020-07-09] MEDS ORDERED: guaiFENesin/CODEINE 10 ML UNIT-DOSE CUPS PO ONE (09:44)
[2020-07-09] MEDS ORDERED: ESCITALOPRAM OXALATE 10 MG TABLET ONE (10:14)
[2020-07-09] MEDS: APIXABAN 5 MG TABLET PO SCH ×2 (10:20→21:22)
[2020-07-09] MEDS: PANTOPRAZOLE 40 MG TABLET PO SCH (10:20)
[2020-07-09] MEDS: PREGABALIN 75 MG CAPSULE PO SCH ×2 (10:20→21:23)
[2020-07-09] MEDS: LIDOCAINE 5% TOPICAL PATCH TP SCH (10:20)
[2020-07-09] MEDS: ASCORBIC ACID 500 MG TABLET (FP) PO SCH (10:20)
[2020-07-09] MEDS: FERROUS SO4 325 MG TABLET (FP) PO SCH (10:20)
[2020-07-09] MEDS: ESCITALOPRAM OXALATE 20 MG TABLET PO SCH (10:21)
[2020-07-09] MEDS: LOSARTAN POTASSIUM 25 MG TABLET PO SCH (10:21)
[2020-07-09] MEDS: BUDESONIDE/FORMETEROL FUMARATE 80/4.5 mcg INHALER IH SCH ×2 (10:21→21:23)
[2020-07-09] MEDS: MULTIVITAMINS (DAILY MVI) TABLET (FP) PO SCH (10:21)
[2020-07-09] MEDS: NYSTATIN 100,000 UNIT/GM TOPICAL CREAM 15 GM TUBE TP SCH ×2 (10:21→21:23)
--- NOTE | 2020-07-09 11:01 | PN ---
Progress Note (short form) - Note Progress Note: Chief Complaint: sob, cough s: no cp palps dizzy; mild sob has now improved. mild cough persists. no orthopnea le edmea pnd. Current Medications Generic Name Dose Route Start Last Admin Trade Name Freq PRN Reason Stop Dose Admin Acetaminophen 650 mg 07/01/20 15:46 07/09/20 02:06 Tylenol - PO 650 mg Q6H PRN Administration PAIN LEVEL 6-10 Albuterol/Ipratropium 1 amp 07/02/20 16:00 07/09/20 08:10 Duoneb - NEB 1 amp RQID NICOLE Administration Amoxicillin/Clavulanate Potassium 1 tab 07/05/20 17:30 07/09/20 08:22 Augmentin - 500mg Tablet PO 1 tab BID@0800,1730 NICOLE Administration Apixaban 5 mg 07/01/20 10:00 07/09/20 10:20 Eliquis - PO 5 mg BID NICOLE Administration Ascorbic Acid 500 mg 07/01/20 10:00 07/09/20 10:20 Vitamin C - PO 500 mg DAILY NICOLE Administration Benzocaine/Menthol 1 each 07/09/20 06:46 07/09/20 06:59 Cepacol Lozenge - MM 1 each PRN PRN Administration SORE THROAT Budesonide/Formoterol Fumarate 1 puff 07/01/20 10:00 07/09/20 10:21 Symbicort 80/4.5mcg - IH 1 puff BID NICOLE Administration Escitalopram Oxalate 20 mg 07/01/20 10:00 07/09/20 10:21 Lexapro - PO 20 mg DAILY NICOLE Administration Ferrous Sulfate 325 mg 07/01/20 10:00 07/09/20 10:20 Feosol - PO 325 mg DAILY NICOLE Administration Furosemide 40 mg 07/08/20 14:00 07/09/20 06:31 Lasix Injection - IVPUSH 40 mg BID@0600,1400 NICOLE Administration Guaifenesin 10 ml 07/05/20 05:59 07/09/20 02:06 Robitussin - PO 10 ml Q6H PRN Administration COUGH Levothyroxine Sodium 50 mcg 07/01/20 10:00 07/09/20 06:26 Synthroid - PO 50 mcg DAILY@0700 NICOLE Administration Lidocaine 1 patch 07/01/20 11:15 07/09/20 10:20 Lidoderm Patch - TP 1 patch DAILY NICOLE Administration Losartan Potassium 25 mg 07/03/20 10:00 07/09/20 10:21 Cozaar - PO 25 mg DAILY NICOLE Administration Metoprolol Succinate 50 mg 07/01/20 10:00 07/09/20 10:21 Toprol Xl - PO 50 mg DAILY NICOLE Administration Miscellaneous 1 each 07/01/20 22:00 07/08/20 21:24 Lidoderm Patch Removal MC 1 each DAILY@2200 NICOLE Administration Multivitamins/Minerals/Vitamin C 1 tab 07/01/20 10:00 07/09/20 10:21 Tab-A-Vit - PO 1 tab DAILY NICOLE Administration Nystatin 1 applic 07/05/20 12:30 07/09/20 10:21 Mycostatin Cream - TP 1 applic BID NICOLE Administration Pantoprazole Sodium 40 mg 07/01/20 10:00 07/09/20 10:20 Protonix - PO 40 mg DAILY NICOLE Administration Pregabalin 150 mg 07/01/20 10:00 07/09/20 10:20 Lyrica - PO 150 mg BID NICOLE Administration Rosuvastatin Calcium 40 mg 07/02/20 21:27 07/08/20 21:23 Crestor - PO 40 mg HS NICOLE Administration Sodium Chloride 2 spray 07/06/20 07:40 07/08/20 21:24 [place] Nasal [place] - NS 2 sprays BID PRN Administration NASAL CONGESTION Vital Signs Period Temp Pulse Resp BP Sys/Bocanegra Pulse Ox Last 24 Hr 97.6 F-98.1 F 98-108 20-20 93-116/49-65 93-95 Constitutional: Yes: No Distress, Calm Eyes: Yes: Conjunctiva Clear Cardiovascular: Yes: Regular Rate and Rhythm Respiratory: Yes: bl wheeze and rhonchi, nl eff Gastrointestinal: Yes: Soft, Abdomen, Obese Edema: no Peripheral Pulses WNL: Yes Neurological: Yes: Alert, Oriented no jaundice diaphoresis Labs: CBC, BMP 07/07/20 06:35 07/08/20 10:10 tele: sr echo 02/2020: Moderate AR, normal biV fx echo 06/2020 nl LV function, LA mildly dilated, mild MAC, mild MR, mild aortic sclerosis, mild AR IMP: PAF Acute on chronic diastolic CHF NSVT AR LE cellulitis HTN HLD Asthma REC: PAF: -stable, cont Eliquis and Toprol Acute on chronic diastolic CHF: -admit CXR clear -unclear precipitant, possibly infection/cellulitis -no signs acs -nl LV function on echo here -cont iv lasix, daily chem7, wts -dobutamine nuclear stress showed a partially reversible anteroapical perfusion defect. 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 Stress test findings d/w Dr Vargas at [facility]. Current perfusion defect is similar to results there in OCT 2019 (she additionally had a lateral wall defect on that exam) and underwent cath showing non-obstructive CAD. hence do not suspect obstructive CAD at this time--cont med mgmt NSVT: -nl EF on echo -Keep K+ and Mg2- >4 and 2 respectively LE cellulitis: improving -as per primary team HTN: -stable HLD: -stable, outpatient f/u Asthma: -has wheezing and productive cough, plans per pulm
[2020-07-09 11:34] LABS: BASO % 0.4 % (0-2.0); EOS % 3.5 % (0-4.5); HEMATOCRIT 32.8 % (32.4-45.2); HEMOGLOBIN 10.8 GM/dL (10.7-15.3); LYMPH % 37.3 % (8-40); MCH 30.9 pg (25.7-33.7); MCHC 32.9 g/dl (32.0-36.0); MEAN CELL VOLUME 93.7 fl (80-96); MEAN PLT VOLUME 8.8 fl (7.5-11.1); MONO % 11.6 % (3.8-10.2); NEUT % 47.2 % (42.8-82.8); PLATELET COUNT 162 K/MM3 (134-434); RDW 14.9 % (11.6-15.6); WHITE BLOOD COUNT 4.4 K/mm3 (4.0-10.0)
[2020-07-09 11:58] LABS: POTASSIUM 3.4 mmol/L (3.5-5.1)
[2020-07-09 12:00] LABS: CALCIUM 8.4 mg/dL (8.5-10.1)
[2020-07-09 12:01] LABS: ALBUMIN 3.2 g/dl (3.4-5.0); BLOOD UREA NITROGEN 23.5 mg/dL (7-18); MAGNESIUM 1.7 mg/dL (1.8-2.4)
[2020-07-09 12:05] LABS: BILIRUBIN,TOTAL 0.4 mg/dL (0.2-1); CREATININE 0.7 mg/dL (0.55-1.3); TOT PROT 6.1 g/dl (6.4-8.2)
--- NOTE | 2020-07-09 14:03 | PN ---
Progress Note, Physician - Current Medication List Current Medications: Active Medications Acetaminophen (Tylenol -) 650 mg PO Q6H PRN PRN Reason: PAIN LEVEL 6-10 Last Admin: 07/09/20 02:06 Dose: 650 mg Documented by: Albuterol/Ipratropium (Duoneb -) 1 amp NEB RQID [facility] Last Admin: 07/09/20 13:49 Dose: 1 amp Documented by: Amoxicillin/Clavulanate Potassium (Augmentin - 500mg Tablet) 1 tab PO BID@0800,1730 [facility] Last Admin: 07/09/20 08:22 Dose: 1 tab Documented by: Apixaban (Eliquis -) 5 mg PO BID [facility] Last Admin: 07/09/20 10:20 Dose: 5 mg Documented by: Ascorbic Acid (Vitamin C -) 500 mg PO DAILY [facility] Last Admin: 07/09/20 10:20 Dose: 500 mg Documented by: Benzocaine/Menthol (Cepacol Lozenge -) 1 each MM PRN PRN PRN Reason: SORE THROAT Last Admin: 07/09/20 06:59 Dose: 1 each Documented by: Budesonide/Formoterol Fumarate (Symbicort 80/4.5mcg -) 1 puff IH BID [facility] Last Admin: 07/09/20 10:21 Dose: 1 puff Documented by: Escitalopram Oxalate (Lexapro -) 20 mg PO DAILY [facility] Last Admin: 07/09/20 10:21 Dose: 20 mg Documented by: Ferrous Sulfate (Feosol -) 325 mg PO DAILY [facility] Last Admin: 07/09/20 10:20 Dose: 325 mg Documented by: Furosemide (Lasix Injection -) 40 mg IVPUSH BID@0600,1400 [facility] Last Admin: 07/09/20 06:31 Dose: 40 mg Documented by: Guaifenesin (Robitussin -) 10 ml PO Q6H PRN PRN Reason: COUGH Last Admin: 07/09/20 02:06 Dose: 10 ml Documented by: Levothyroxine Sodium (Synthroid -) 50 mcg PO DAILY@0700 [facility] Last Admin: 07/09/20 06:26 Dose: 50 mcg Documented by: Lidocaine (Lidoderm Patch -) 1 patch TP DAILY [facility] Last Admin: 07/09/20 10:20 Dose: 1 patch Documented by: Losartan Potassium (Cozaar -) 25 mg PO DAILY [facility] Last Admin: 07/09/20 10:21 Dose: 25 mg Documented by: Metoprolol Succinate (Toprol Xl -) 50 mg PO DAILY [facility] Last Admin: 07/09/20 10:21 Dose: 50 mg Documented by: Miscellaneous (Lidoderm Patch Removal) 1 each MC DAILY@2200 [facility] Last Admin: 07/08/20 21:24 Dose: 1 each Documented by: Multivitamins/Minerals/Vitamin C (Tab-A-Vit -) 1 tab PO DAILY [facility] Last Admin: 07/09/20 10:21 Dose: 1 tab Documented by: Nystatin (Mycostatin Cream -) 1 applic TP BID [facility] Last Admin: 07/09/20 10:21 Dose: 1 applic Documented by: Pantoprazole Sodium (Protonix -) 40 mg PO DAILY [facility] Last Admin: 07/09/20 10:20 Dose: 40 mg Documented by: Pregabalin (Lyrica -) 150 mg PO BID [facility] Last Admin: 07/09/20 10:20 Dose: 150 mg Documented by: Rosuvastatin Calcium (Crestor -) 40 mg PO HS [facility] Last Admin: 07/08/20 21:23 Dose: 40 mg Documented by: Sodium Chloride ([place] Nasal [place] -) 2 spray NS BID PRN PRN Reason: NASAL CONGESTION Last Admin: 07/08/20 21:24 Dose: 2 sprays Documented by: - Objective Vital Signs: Vital Signs Temperature 98.4 F 07/09/20 10:00 Pulse Rate 104 H 07/09/20 10:00 Respiratory Rate 20 07/09/20 10:00 Blood Pressure 123/67 07/09/20 10:00 O2 Sat by Pulse Oximetry (%) 97 07/09/20 10:00 Labs: CBC, BMP 07/09/20 10:51 07/09/20 10:51 INR, PTT INR 1.36 (0.83-1.09) H 06/30/20 21:30
[2020-07-09] MEDS: ROSUVASTATIN CA 20 MG TABLET (FP) PO SCH (21:22)
[2020-07-09] MEDS: LIDOCAINE PATCH REMOVAL MC SCH (21:23)
[2020-07-09] MEDS: SODIUM CHLORIDE NASAL SPRAY 44 ML BOTTLE NS PRN (21:23)
[2020-07-10] MEDS: LEVOTHYROXINE NA 50 MCG TABLET (FP) PO SCH (06:37)
[2020-07-10] MEDS: guaiFENesin 200 MG/10 ML 10 ML UNIT-DOSE CUPS PO PRN ×2 (06:37→13:09)
[2020-07-10] MEDS: ACETAMINOPHEN 325 MG TABLET (FP) PO PRN ×2 (06:37→13:09)
[2020-07-10] MEDS: FUROSEMIDE 40 MG/4 ML INJECTABLE VIAL IVPUSH SCH ×2 (06:43→13:09)
--- NOTE | 2020-07-10 07:07 | PN ---
Progress Note, Physician History of Present Illness: PULMONARY ALERT,LESS DYSPNEIC,-CP - Current Medication List Current Medications: Active Medications Acetaminophen (Tylenol -) 650 mg PO Q6H PRN PRN Reason: PAIN LEVEL 6-10 Last Admin: 07/10/20 06:37 Dose: 650 mg Documented by: Albuterol/Ipratropium (Duoneb -) 1 amp NEB RQID [facility] Last Admin: 07/09/20 20:33 Dose: 1 amp Documented by: Amoxicillin/Clavulanate Potassium (Augmentin - 500mg Tablet) 1 tab PO BID@0800,1730 [facility] Last Admin: 07/09/20 17:21 Dose: 1 tab Documented by: Apixaban (Eliquis -) 5 mg PO BID [facility] Last Admin: 07/09/20 21:22 Dose: 5 mg Documented by: Ascorbic Acid (Vitamin C -) 500 mg PO DAILY [facility] Last Admin: 07/09/20 10:20 Dose: 500 mg Documented by: Benzocaine/Menthol (Cepacol Lozenge -) 1 each MM PRN PRN PRN Reason: SORE THROAT Last Admin: 07/09/20 21:23 Dose: 1 each Documented by: Budesonide/Formoterol Fumarate (Symbicort 80/4.5mcg -) 1 puff IH BID [facility] Last Admin: 07/09/20 21:23 Dose: 1 puff Documented by: Escitalopram Oxalate (Lexapro -) 20 mg PO DAILY [facility] Last Admin: 07/09/20 10:21 Dose: 20 mg Documented by: Ferrous Sulfate (Feosol -) 325 mg PO DAILY [facility] Last Admin: 07/09/20 10:20 Dose: 325 mg Documented by: Furosemide (Lasix Injection -) 40 mg IVPUSH BID@0600,1400 [facility] Last Admin: 07/10/20 06:43 Dose: 40 mg Documented by: Guaifenesin (Robitussin -) 10 ml PO Q6H PRN PRN Reason: COUGH Last Admin: 07/10/20 06:37 Dose: 10 ml Documented by: Levothyroxine Sodium (Synthroid -) 50 mcg PO DAILY@0700 [facility] Last Admin: 07/10/20 06:37 Dose: 50 mcg Documented by: Lidocaine (Lidoderm Patch -) 1 patch TP DAILY [facility] Last Admin: 07/09/20 10:20 Dose: 1 patch Documented by: Losartan Potassium (Cozaar -) 25 mg PO DAILY [facility] Last Admin: 07/09/20 10:21 Dose: 25 mg Documented by: Metoprolol Succinate (Toprol Xl -) 50 mg PO DAILY [facility] Last Admin: 07/09/20 10:21 Dose: 50 mg Documented by: Miscellaneous (Lidoderm Patch Removal) 1 each MC DAILY@2200 [facility] Last Admin: 07/09/20 21:23 Dose: 1 each Documented by: Multivitamins/Minerals/Vitamin C (Tab-A-Vit -) 1 tab PO DAILY [facility] Last Admin: 07/09/20 10:21 Dose: 1 tab Documented by: Nystatin (Mycostatin Cream -) 1 applic TP BID [facility] Last Admin: 07/09/20 21:23 Dose: 1 applic Documented by: Pantoprazole Sodium (Protonix -) 40 mg PO DAILY [facility] Last Admin: 07/09/20 10:20 Dose: 40 mg Documented by: Pregabalin (Lyrica -) 150 mg PO BID [facility] Last Admin: 07/09/20 21:23 Dose: 150 mg Documented by: Rosuvastatin Calcium (Crestor -) 40 mg PO HS [facility] Last Admin: 07/09/20 21:22 Dose: 40 mg Documented by: Sodium Chloride ([place] Nasal [place] -) 2 spray NS BID PRN PRN Reason: NASAL CONGESTION Last Admin: 07/09/20 21:23 Dose: 2 sprays Documented by: - Objective Vital Signs: Vital Signs Temperature 98.3 F 07/10/20 02:00 Pulse Rate 84 07/10/20 02:00 Respiratory Rate 18 07/10/20 02:00 Blood Pressure 97/38 L 07/10/20 02:00 O2 Sat by Pulse Oximetry (%) 98 07/09/20 21:00 Constitutional: Yes: Well Nourished, Calm Eyes: Yes: WNL HENT: Yes: WNL Neck: Yes: WNL Cardiovascular: Yes: Regular Rate and Rhythm, S1, S2 Respiratory: Yes: Rales (BIBASILAR CRACKLES) Gastrointestinal: Yes: Normal Bowel Sounds, Soft Extremities: Yes: WNL Edema: Yes Labs: CBC, BMP - ....Imaging Chest X-ray: Report Reviewed, Image Reviewed Assessment/Plan A/P Acute on Chronic Diastolic Heart Failure Paroxysmal Atrial Fibrillation Aortic Regurgitation Asthma HTN Hyperlipidemia - inhaled bronchodilators - lasix - monitor urine output, creatinine - daily weights - O2 to keep SpO2 >90% - rate controlled - anticoagulation - Prednisone - karen SAWYER
[2020-07-10] MEDS: ALBUTEROL SO4 2.5/IPRATROPIUM 0.5 INH SOL 3 ML VIAL.NEB. NEB SCH ×3 (07:54→15:59)
[2020-07-10] MEDS ORDERED: PT OWN MED DRAWER 7, Y5N ONE ×3 (07:59→16:38)
[2020-07-10] MEDS ORDERED: ESCITALOPRAM OXALATE 10 MG TABLET ONE (09:40)
[2020-07-10] MEDS: LOSARTAN POTASSIUM 25 MG TABLET PO SCH (09:42)
[2020-07-10] MEDS: APIXABAN 5 MG TABLET PO SCH ×2 (09:42→21:23)
[2020-07-10] MEDS: ASCORBIC ACID 500 MG TABLET (FP) PO SCH (09:42)
[2020-07-10] MEDS: FERROUS SO4 325 MG TABLET (FP) PO SCH (09:42)
[2020-07-10] MEDS: MAGNESIUM OXIDE 400 MG TABLET (FP) PO SCH ×2 (09:42→13:09)
[2020-07-10] MEDS: MULTIVITAMINS (DAILY MVI) TABLET (FP) PO SCH (09:42)
[2020-07-10] MEDS: PANTOPRAZOLE 40 MG TABLET PO SCH (09:42)
[2020-07-10] MEDS: POTASSIUM CHLORIDE TABS 20 MEQ TABLET.ER (FP) PO SCH ×2 (09:43→21:23)
[2020-07-10] MEDS: NYSTATIN 100,000 UNIT/GM TOPICAL CREAM 15 GM TUBE TP SCH ×2 (09:43→21:24)
[2020-07-10] MEDS: PREGABALIN 75 MG CAPSULE PO SCH ×2 (09:43→21:23)
[2020-07-10] MEDS: ESCITALOPRAM OXALATE 20 MG TABLET PO SCH (09:43)
[2020-07-10] MEDS: LIDOCAINE 5% TOPICAL PATCH TP SCH (09:43)
[2020-07-10] MEDS: AMOX TR/POT CLAV 500MG/125MG TABLETS (FP) PO SCH ×2 (09:43→17:21)
[2020-07-10] MEDS: BUDESONIDE/FORMETEROL FUMARATE 80/4.5 mcg INHALER IH SCH ×2 (09:44→21:22)
[2020-07-10] MEDS: SODIUM CHLORIDE NASAL SPRAY 44 ML BOTTLE NS PRN (09:49)
--- NOTE | 2020-07-10 09:59 | PN ---
Progress Note, Physician History of Present Illness: Patient seen and examined at bedside. She endorses shortness of breath. She denieds nausea vomiting fever chills chest pain or GI symptoms. Patient is still wheezing. She endorses yellow phlegm production and cough.Tele reviewed. 5 beats of Vtach this AM around 10am and some PVCs overnight. K+ and Mg low. - Current Medication List Current Medications: Active Medications Acetaminophen (Tylenol -) 650 mg PO Q6H PRN PRN Reason: PAIN LEVEL 6-10 Last Admin: 07/10/20 06:37 Dose: 650 mg Documented by: Albuterol/Ipratropium (Duoneb -) 1 amp NEB RQID [facility] [place] Last Admin: 07/10/20 07:54 Dose: 1 amp Documented by: Amoxicillin/Clavulanate Potassium (Augmentin - 500mg Tablet) 1 tab PO BID@0800,1730 [facility] [place] Last Admin: 07/10/20 09:43 Dose: 1 tab Documented by: Apixaban (Eliquis -) 5 mg PO BID [facility] [place] Last Admin: 07/10/20 09:42 Dose: 5 mg Documented by: Ascorbic Acid (Vitamin C -) 500 mg PO DAILY [facility] [place] Last Admin: 07/10/20 09:42 Dose: 500 mg Documented by: Benzocaine/Menthol (Cepacol Lozenge -) 1 each MM PRN PRN PRN Reason: SORE THROAT Last Admin: 07/09/20 21:23 Dose: 1 each Documented by: Budesonide/Formoterol Fumarate (Symbicort 80/4.5mcg -) 1 puff IH BID [facility] [place] Last Admin: 07/10/20 09:44 Dose: 1 puff Documented by: Escitalopram Oxalate (Lexapro -) 20 mg PO DAILY [facility] [place] Last Admin: 07/10/20 09:43 Dose: 20 mg Documented by: Ferrous Sulfate (Feosol -) 325 mg PO DAILY [facility] [place] Last Admin: 07/10/20 09:42 Dose: 325 mg Documented by: Furosemide (Lasix Injection -) 40 mg IVPUSH BID@0600,1400 [facility] [place] Last Admin: 07/10/20 06:43 Dose: 40 mg Documented by: Guaifenesin (Robitussin -) 10 ml PO Q6H PRN PRN Reason: COUGH Last Admin: 07/10/20 06:37 Dose: 10 ml Documented by: Levothyroxine Sodium (Synthroid -) 50 mcg PO DAILY@0700 [facility] [place] Last Admin: 07/10/20 06:37 Dose: 50 mcg Documented by: Lidocaine (Lidoderm Patch -) 1 patch TP DAILY [facility] [place] Last Admin: 07/10/20 09:43 Dose: 1 patch Documented by: Losartan Potassium (Cozaar -) 25 mg PO DAILY [facility] [place] Last Admin: 07/10/20 09:42 Dose: 25 mg Documented by: Magnesium Oxide (Mag-Ox -) 400 mg PO Q4H [facility] [place] Stop: 07/10/20 13:16 Last Admin: 07/10/20 09:42 Dose: 400 mg Documented by: Metoprolol Succinate (Toprol Xl -) 50 mg PO DAILY [facility] [place] Last Admin: 07/10/20 09:43 Dose: 50 mg Documented by: Miscellaneous (Lidoderm Patch Removal) 1 each MC DAILY@2200 [facility] [place] Last Admin: 07/09/20 21:23 Dose: 1 each Documented by: Multivitamins/Minerals/Vitamin C (Tab-A-Vit -) 1 tab PO DAILY [facility] [place] Last Admin: 07/10/20 09:42 Dose: 1 tab Documented by: Nystatin (Mycostatin Cream -) 1 applic TP BID [facility] [place] Last Admin: 07/10/20 09:43 Dose: 1 applic Documented by: Pantoprazole Sodium (Protonix -) 40 mg PO DAILY [facility] [place] Last Admin: 07/10/20 09:42 Dose: 40 mg Documented by: Potassium Chloride (K-Dur -) 40 meq PO BID [facility] [place] Stop: 07/10/20 22:01 Last Admin: 07/10/20 09:43 Dose: 40 meq Documented by: Prednisone (Deltasone -) 40 mg PO DAILY [facility] [place] Stop: 07/11/20 10:01 Prednisone (Deltasone -) 20 mg PO DAILY [facility] [place] Stop: 07/13/20 10:01 Prednisone (Deltasone -) 10 mg PO DAILY [facility] [place] Stop: 07/15/20 10:01 Pregabalin (Lyrica -) 150 mg PO BID [facility] [place] Last Admin: 07/10/20 09:43 Dose: 150 mg Documented by: Rosuvastatin Calcium (Crestor -) 40 mg PO HS [facility] [place] Last Admin: 07/09/20 21:22 Dose: 40 mg Documented by: Sodium Chloride ([place] Nasal [place] -) 2 spray NS BID PRN PRN Reason: NASAL CONGESTION Last Admin: 07/10/20 09:49 Dose: 2 sprays Documented by: - Objective Vital Signs: Vital Signs Temperature 98.1 F 07/10/20 06:00 Pulse Rate 102 H 07/10/20 06:00 Respiratory Rate 20 07/10/20 06:00 Blood Pressure 119/68 07/10/20 06:00 O2 Sat by Pulse Oximetry (%) 99 07/10/20 06:00 Constitutional: Yes: Mild Distress (respiratory distress), Obese HENT: Yes: Other (moist oral mucosa) Neck: Yes: Supple Cardiovascular: Yes: Pulse Irregular, Other (no hepatojugular reflux). No: JVD Respiratory: Yes: Cough, Wheezes (expiratory) Gastrointestinal: Yes: Normal Bowel Sounds, Soft, Abdomen, Obese. No: Tenderness Extremities: Yes: Other (cellulitis resolved). No: Erythema Edema: Yes Edema: LLE: Trace, RLE: 1+ Neurological: Yes: Alert, Oriented ...Motor Strength: WNL Psychiatric: Yes: Alert, Oriented Labs: CBC, BMP 07/09/20 10:51 07/09/20 10:51 INR, PTT INR 1.36 (0.83-1.09) H 06/30/20 21:30 - ....Imaging Chest X-ray: Report Reviewed, Image Reviewed (from 06/30/2020 and 07/09/2020) Impression/Plan Impression/Plan: Patient is an 80 year old female with a significant past medical history of hypertension, hyperlipidemia, COPD on 3L NC, CAD, atrial fibrillation (on eliquis), parkinson, hypothyroidism, breast cancer sp lumpectomy, chemo, radiation 10 years ago, 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 She also endorses dyspnea with mild exertion such as walking up and down the stairs x several days. Patient is being admitted for acute on chronic diastolic chf exacerbation, RLE celluliitis. Acute on chronic diastolic (congestive) heart failure continue IV lasix 40mg po BID and switch to PO tomorrow daily weights, strict I/Os unchanged weight from yesterday but weighted at 10am inbstead of 6am and patient drank and ate already. 07/03 TTE: EF 55-60%, mild MR/ unchanged from 03/02 Keep K > 4 and Mg >2 COPD (chronic obstructive pulmonary disease) in acute exacerbation given change in phlegm characteristics. on 3 liters nasal cannula (home oxygen dependent) patient is wheezing f/u pulm-discussed with Dr. Pérez. complete course of ABx continue on bronchodilators start 6 day prednisone taper 40mg po daily x2 days, then 20mg po daily for 2 days, then 10mg po daily for 2 days and stop. Cellulitis of right anterior lower leg on oral Augmentin now bid day 01/10 will stop today after PM dose duplex US negative for dvt. non obstructive CAD cont med mgmt per cards Leg swelling likely 2/2 diastolic heart failure exacerbation. negative for DVT on apixaban and IV lasix Atrial fibrillation with RVR on toprol and eliquis monitor on tele; cardiology following and optimizing meds DVT prophylaxis already on eliquis 5 mg bid Hypokalemia/Hypomagnesium replete and recheck in AM continue PT-patient did well today. Discharge tomorrow with prednisone taper to complete 6 day course Visit type - Emergency Visit Emergency Visit: Yes ED Registration Date: 06/30/20 Care time: The patient presented to the Emergency Department on the above date and was hospitalized for further evaluation of their emergent condition. - New Patient This patient is new to me today: Yes Date on this admission: 07/10/20 - Critical Care Critical Care patient: No - Medication Review Med list reviewed for High Risk Meds patients 65 and older: Yes
[2020-07-10] MEDS: predniSONE 20 MG TABLET (UD) PO SCH (10:05)
--- NOTE | 2020-07-10 10:40 | PN ---
Progress Note (short form) - Note Progress Note: Chief Complaint: sob, cough s: no cp palps dizzy; mild sob has now improved. mild cough persists. no orthopnea le edmea pnd. Current Medications Generic Name Dose Route Start Last Admin Trade Name Freq PRN Reason Stop Dose Admin Acetaminophen 650 mg 07/01/20 15:46 07/10/20 06:37 Tylenol - PO 650 mg Q6H PRN Administration PAIN LEVEL 6-10 Albuterol/Ipratropium 1 amp 07/02/20 16:00 07/10/20 07:54 Duoneb - NEB 1 amp RQID NICOLE Administration Amoxicillin/Clavulanate Potassium 1 tab 07/05/20 17:30 07/10/20 09:43 Augmentin - 500mg Tablet PO 07/10/20 18:00 1 tab BID@0800,1730 NICOLE Administration Apixaban 5 mg 07/01/20 10:00 07/10/20 09:42 Eliquis - PO 5 mg BID NICOLE Administration Ascorbic Acid 500 mg 07/01/20 10:00 07/10/20 09:42 Vitamin C - PO 500 mg DAILY NICOLE Administration Benzocaine/Menthol 1 each 07/09/20 06:46 07/09/20 21:23 Cepacol Lozenge - MM 1 each PRN PRN Administration SORE THROAT Budesonide/Formoterol Fumarate 1 puff 07/01/20 10:00 07/10/20 09:44 Symbicort 80/4.5mcg - IH 1 puff BID NICOLE Administration Escitalopram Oxalate 20 mg 07/01/20 10:00 07/10/20 09:43 Lexapro - PO 20 mg DAILY NICOLE Administration Ferrous Sulfate 325 mg 07/01/20 10:00 07/10/20 09:42 Feosol - PO 325 mg DAILY NICOLE Administration Furosemide 40 mg 07/08/20 14:00 07/10/20 06:43 Lasix Injection - IVPUSH 40 mg BID@0600,1400 NICOLE Administration Guaifenesin 10 ml 07/05/20 05:59 07/10/20 06:37 Robitussin - PO 10 ml Q6H PRN Administration COUGH Levothyroxine Sodium 50 mcg 07/01/20 10:00 07/10/20 06:37 Synthroid - PO 50 mcg DAILY@0700 NICOLE Administration Lidocaine 1 patch 07/01/20 11:15 07/10/20 09:43 Lidoderm Patch - TP 1 patch DAILY NICOLE Administration Losartan Potassium 25 mg 07/03/20 10:00 07/10/20 09:42 Cozaar - PO 25 mg DAILY NICOLE Administration Magnesium Oxide 400 mg 07/10/20 09:15 07/10/20 09:42 Mag-Ox - PO 07/10/20 13:16 400 mg Q4H NICOLE Administration Metoprolol Succinate 50 mg 07/01/20 10:00 07/10/20 09:43 Toprol Xl - PO 50 mg DAILY NICOLE Administration Miscellaneous 1 each 07/01/20 22:00 07/09/20 21:23 Lidoderm Patch Removal MC 1 each DAILY@2200 NICOLE Administration Multivitamins/Minerals/Vitamin C 1 tab 07/01/20 10:00 07/10/20 09:42 Tab-A-Vit - PO 1 tab DAILY NICOLE Administration Nystatin 1 applic 07/05/20 12:30 07/10/20 09:43 Mycostatin Cream - TP 1 applic BID NICOLE Administration Pantoprazole Sodium 40 mg 07/01/20 10:00 07/10/20 09:42 Protonix - PO 40 mg DAILY NICOLE Administration Potassium Chloride 40 meq 07/10/20 10:00 07/10/20 09:43 K-Dur - PO 07/10/20 22:01 40 meq BID NICOLE Administration Prednisone 40 mg 07/10/20 10:00 07/10/20 10:05 Deltasone - PO 07/11/20 10:01 40 mg DAILY NICOLE Administration Prednisone 20 mg 07/12/20 10:00 Deltasone - PO 07/13/20 10:01 DAILY NICOLE Prednisone 10 mg 07/14/20 10:00 Deltasone - PO 07/15/20 10:01 DAILY NICOLE Pregabalin 150 mg 07/01/20 10:00 07/10/20 09:43 Lyrica - PO 150 mg BID NICOLE Administration Rosuvastatin Calcium 40 mg 07/02/20 21:27 07/09/20 21:22 Crestor - PO 40 mg HS NICOLE Administration Sodium Chloride 2 spray 07/06/20 07:40 07/10/20 09:49 [place] Nasal [place] - NS 2 sprays BID PRN Administration NASAL CONGESTION Vital Signs Period Temp Pulse Resp BP Sys/Bocanegra Pulse Ox Last 24 Hr 98.1 F-98.4 F 84-106 18-20 94-136/38-68 96-99 Constitutional: Yes: No Distress, Calm Eyes: Yes: Conjunctiva Clear Cardiovascular: Yes: Regular Rate and Rhythm Respiratory: Yes: bl mild wheeze , nl eff Gastrointestinal: Yes: Soft, Abdomen, Obese Edema: no Peripheral Pulses WNL: Yes Neurological: Yes: Alert, Oriented no jaundice diaphoresis Labs: CBC, BMP 07/09/20 10:51 07/09/20 10:51 tele: sr echo 02/2020: Moderate AR, normal biV fx echo 06/2020 nl LV function, LA mildly dilated, mild MAC, mild MR, mild aortic sclerosis, mild AR IMP: PAF Acute on chronic diastolic CHF NSVT AR LE cellulitis HTN HLD Asthma REC: PAF: -stable, cont Eliquis and Toprol Acute on chronic diastolic CHF: -unclear precipitant, possibly infection/cellulitis -no signs acs -nl LV function on echo here -cxr clear, symptoms improving, cont iv lasix, daily chem7, wts. plan to change to po lasix tomorrow for dc. -dobutamine nuclear stress showed a partially reversible anteroapical perfusion defect. 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 Stress test findings d/w Dr Vargas at [facility]. Current perfusion defect is similar to results there in OCT 2019 (she additionally had a lateral wall defect on that exam) and underwent cath showing non-obstructive CAD. hence do not suspect obstructive CAD at this time--cont med mgmt NSVT: -nl EF on echo -Keep K+ and Mg2- >4 and 2 respectively LE cellulitis: improving -as per primary team HTN: -stable HLD: -stable, outpatient f/u Asthma: -has wheezing and productive cough, plans per pulm/primary, starting prednisone taper
--- NOTE | 2020-07-10 12:30 | PN ---
Progress Note, Physician History of Present Illness: stable leg mildly swollen - Current Medication List Current Medications: Active Medications Acetaminophen (Tylenol -) 650 mg PO Q6H PRN PRN Reason: PAIN LEVEL 6-10 Last Admin: 07/10/20 06:37 Dose: 650 mg Documented by: Albuterol/Ipratropium (Duoneb -) 1 amp NEB RQID [facility] Last Admin: 07/10/20 11:42 Dose: 1 amp Documented by: Amoxicillin/Clavulanate Potassium (Augmentin - 500mg Tablet) 1 tab PO BID@0800,1730 [facility] Stop: 07/10/20 18:00 Last Admin: 07/10/20 09:43 Dose: 1 tab Documented by: Apixaban (Eliquis -) 5 mg PO BID [facility] Last Admin: 07/10/20 09:42 Dose: 5 mg Documented by: Ascorbic Acid (Vitamin C -) 500 mg PO DAILY [facility] Last Admin: 07/10/20 09:42 Dose: 500 mg Documented by: Benzocaine/Menthol (Cepacol Lozenge -) 1 each MM PRN PRN PRN Reason: SORE THROAT Last Admin: 07/09/20 21:23 Dose: 1 each Documented by: Budesonide/Formoterol Fumarate (Symbicort 80/4.5mcg -) 1 puff IH BID [facility] Last Admin: 07/10/20 09:44 Dose: 1 puff Documented by: Escitalopram Oxalate (Lexapro -) 20 mg PO DAILY [facility] Last Admin: 07/10/20 09:43 Dose: 20 mg Documented by: Ferrous Sulfate (Feosol -) 325 mg PO DAILY [facility] Last Admin: 07/10/20 09:42 Dose: 325 mg Documented by: Furosemide (Lasix Injection -) 40 mg IVPUSH BID@0600,1400 [facility] Last Admin: 07/10/20 06:43 Dose: 40 mg Documented by: Guaifenesin (Robitussin -) 10 ml PO Q6H PRN PRN Reason: COUGH Last Admin: 07/10/20 06:37 Dose: 10 ml Documented by: Levothyroxine Sodium (Synthroid -) 50 mcg PO DAILY@0700 [facility] Last Admin: 07/10/20 06:37 Dose: 50 mcg Documented by: Lidocaine (Lidoderm Patch -) 1 patch TP DAILY [facility] Last Admin: 07/10/20 09:43 Dose: 1 patch Documented by: Losartan Potassium (Cozaar -) 25 mg PO DAILY [facility] Last Admin: 07/10/20 09:42 Dose: 25 mg Documented by: Magnesium Oxide (Mag-Ox -) 400 mg PO Q4H [facility] Stop: 07/10/20 13:16 Last Admin: 07/10/20 09:42 Dose: 400 mg Documented by: Metoprolol Succinate (Toprol Xl -) 50 mg PO DAILY [facility] Last Admin: 07/10/20 09:43 Dose: 50 mg Documented by: Miscellaneous (Lidoderm Patch Removal) 1 each MC DAILY@2200 [facility] Last Admin: 07/09/20 21:23 Dose: 1 each Documented by: Multivitamins/Minerals/Vitamin C (Tab-A-Vit -) 1 tab PO DAILY [facility] Last Admin: 07/10/20 09:42 Dose: 1 tab Documented by: Nystatin (Mycostatin Cream -) 1 applic TP BID [facility] Last Admin: 07/10/20 09:43 Dose: 1 applic Documented by: Pantoprazole Sodium (Protonix -) 40 mg PO DAILY [facility] Last Admin: 07/10/20 09:42 Dose: 40 mg Documented by: Potassium Chloride (K-Dur -) 40 meq PO BID [facility] Stop: 07/10/20 22:01 Last Admin: 07/10/20 09:43 Dose: 40 meq Documented by: Prednisone (Deltasone -) 40 mg PO DAILY [facility] Stop: 07/11/20 10:01 Last Admin: 07/10/20 10:05 Dose: 40 mg Documented by: Prednisone (Deltasone -) 20 mg PO DAILY [facility] Stop: 07/13/20 10:01 Prednisone (Deltasone -) 10 mg PO DAILY [facility] Stop: 07/15/20 10:01 Pregabalin (Lyrica -) 150 mg PO BID [facility] Last Admin: 07/10/20 09:43 Dose: 150 mg Documented by: Rosuvastatin Calcium (Crestor -) 40 mg PO HS [facility] Last Admin: 07/09/20 21:22 Dose: 40 mg Documented by: Sodium Chloride ([place] Nasal [place] -) 2 spray NS BID PRN PRN Reason: NASAL CONGESTION Last Admin: 07/10/20 09:49 Dose: 2 sprays Documented by: - Objective Vital Signs: Vital Signs Temperature 98.4 F 07/10/20 10:00 Pulse Rate 95 H 07/10/20 10:00 Respiratory Rate 20 07/10/20 10:00 Blood Pressure 101/62 07/10/20 10:00 O2 Sat by Pulse Oximetry (%) 96 07/10/20 10:00 Constitutional: Yes: No Distress, Calm Cardiovascular: Yes: S1, S2 Respiratory: Yes: Regular, CTA Bilaterally Gastrointestinal: Yes: Normal Bowel Sounds, Soft Musculoskeletal: Yes: WNL Edema: LLE: 1+ Integumentary: Yes: Other Neurological: Yes: Alert, Oriented Psychiatric: Yes: Alert, Oriented Labs: CBC, BMP 07/09/20 10:51 07/09/20 10:51 INR, PTT INR 1.36 (0.83-1.09) H 06/30/20 21:30 Assessment/Plan Problem List - Problems (1) Acute on chronic diastolic (congestive) heart failure Code(s): I50.33 - ACUTE ON CHRONIC DIASTOLIC (CONGESTIVE) HEART FAILURE (2) Hip joint replacement status Code(s): Z96.649 - PRESENCE OF UNSPECIFIED ARTIFICIAL HIP JOINT (3) Leg swelling Code(s): M79.89 - OTHER SPECIFIED SOFT TISSUE DISORDERS (4) On home oxygen therapy Code(s): Z99.81 - DEPENDENCE ON SUPPLEMENTAL OXYGEN (5) Parkinson disease Code(s): G20 - PARKINSON'S DISEASE (6) S/p total knee replacement, bilateral Code(s): Z96.653 - PRESENCE OF ARTIFICIAL KNEE JOINT, BILATERAL (7) Atrial fibrillation Code(s): I48.91 - UNSPECIFIED ATRIAL FIBRILLATION (8) CAD (coronary artery disease) Code(s): I25.10 - ATHSCL HEART DISEASE OF [place] CORONARY ARTERY W/O ANG PCTRS (9) COPD (chronic obstructive pulmonary disease) Code(s): J44.9 - CHRONIC OBSTRUCTIVE PULMONARY DISEASE, UNSPECIFIED (10) Cellulitis Code(s): L03.90 - CELLULITIS, UNSPECIFIED (11) GERD (gastroesophageal reflux disease) Code(s): K21.9 - GASTRO-ESOPHAGEAL REFLUX DISEASE WITHOUT ESOPHAGITIS (12) HLD (hyperlipidemia) Code(s): E78.5 - HYPERLIPIDEMIA, UNSPECIFIED (13) HTN (hypertension) Code(s): I10 - ESSENTIAL (PRIMARY) HYPERTENSION Qualifiers: Hypertension type: essential hypertension Qualified Code(s): I10 - Essential (primary) hypertension (14) History of breast cancer Code(s): Z85.3 - PERSONAL HISTORY OF MALIGNANT NEOPLASM OF BREAST Assessment/Plan RLE cellulitis b/l LE edema Acute on chronic CHF COPD on home O2 HTN HLD CAD PAF Parkinsons hypothyroidism hx of Breast CA s/p lumpectomy/RT/chemo s/p b/l TKR s/p Lt THR plan elevation of the legs oral augmentin 500 mg po bid for 1more days
[2020-07-10] MEDS: BENZOCAINE/MENTH/CETYLPYRD CL 1 EACH LOZENGE MM PRN (17:21)
[2020-07-10] MEDS: ROSUVASTATIN CA 20 MG TABLET (FP) PO SCH (21:23)
[2020-07-10] MEDS: LIDOCAINE PATCH REMOVAL MC SCH (21:25)
[2020-07-11] MEDS: guaiFENesin 200 MG/10 ML 10 ML UNIT-DOSE CUPS PO PRN (01:41)
[2020-07-11] MEDS: FUROSEMIDE 40 MG/4 ML INJECTABLE VIAL IVPUSH SCH ×2 (06:16→13:50)
[2020-07-11] MEDS: LEVOTHYROXINE NA 50 MCG TABLET (FP) PO SCH (06:16)
[2020-07-11 06:29] LABS: BASO % 0.3 % (0-2.0); EOS % 0.3 % (0-4.5); HEMATOCRIT 32.6 % (32.4-45.2); HEMOGLOBIN 10.7 GM/dL (10.7-15.3); LYMPH % 30.2 % (8-40); MCH 30.4 pg (25.7-33.7); MCHC 32.7 g/dl (32.0-36.0); MEAN CELL VOLUME 92.9 fl (80-96); MEAN PLT VOLUME 8.6 fl (7.5-11.1); MONO % 12.7 % (3.8-10.2); NEUT % 56.5 % (42.8-82.8); PLATELET COUNT 178 K/MM3 (134-434); RBC 3.51 M/mm3 (3.60-5.2); RDW 14.9 % (11.6-15.6); WHITE BLOOD COUNT 6.3 K/mm3 (4.0-10.0)
[2020-07-11 06:53] LABS: POTASSIUM 3.9 mmol/L (3.5-5.1)
[2020-07-11 06:55] LABS: CALCIUM 8.8 mg/dL (8.5-10.1)
[2020-07-11 06:56] LABS: MAGNESIUM 2.1 mg/dL (1.8-2.4)
--- NOTE | 2020-07-11 06:56 | PN ---
Progress Note, Physician History of Present Illness: PULMONARY ALERT,OOB-CHAIR,C/O SOB,+ WHEEZES - Current Medication List Current Medications: Active Medications Acetaminophen (Tylenol -) 650 mg PO Q6H PRN PRN Reason: PAIN LEVEL 6-10 Last Admin: 07/10/20 13:09 Dose: 650 mg Documented by: Apixaban (Eliquis -) 5 mg PO BID [facility] Last Admin: 07/10/20 21:23 Dose: 5 mg Documented by: Ascorbic Acid (Vitamin C -) 500 mg PO DAILY [facility] Last Admin: 07/10/20 09:42 Dose: 500 mg Documented by: Benzocaine/Menthol (Cepacol Lozenge -) 1 each MM PRN PRN PRN Reason: SORE THROAT Last Admin: 07/10/20 17:21 Dose: 1 each Documented by: Budesonide/Formoterol Fumarate (Symbicort 80/4.5mcg -) 1 puff IH BID [facility] Last Admin: 07/10/20 21:22 Dose: 1 puff Documented by: Escitalopram Oxalate (Lexapro -) 20 mg PO DAILY [facility] Last Admin: 07/10/20 09:43 Dose: 20 mg Documented by: Ferrous Sulfate (Feosol -) 325 mg PO DAILY [facility] Last Admin: 07/10/20 09:42 Dose: 325 mg Documented by: Furosemide (Lasix Injection -) 40 mg IVPUSH BID@0600,1400 [facility] Last Admin: 07/11/20 06:16 Dose: 40 mg Documented by: Guaifenesin (Robitussin -) 10 ml PO Q6H PRN PRN Reason: COUGH Last Admin: 07/11/20 01:41 Dose: 10 ml Documented by: Levothyroxine Sodium (Synthroid -) 50 mcg PO DAILY@0700 [facility] Last Admin: 07/11/20 06:16 Dose: 50 mcg Documented by: Lidocaine (Lidoderm Patch -) 1 patch TP DAILY [facility] Last Admin: 07/10/20 09:43 Dose: 1 patch Documented by: Losartan Potassium (Cozaar -) 25 mg PO DAILY [facility] Last Admin: 07/10/20 09:42 Dose: 25 mg Documented by: Metoprolol Succinate (Toprol Xl -) 50 mg PO DAILY [facility] Last Admin: 07/10/20 09:43 Dose: 50 mg Documented by: Miscellaneous (Lidoderm Patch Removal) 1 each MC DAILY@2200 [facility] Last Admin: 07/10/20 21:25 Dose: Not Given Documented by: Multivitamins/Minerals/Vitamin C (Tab-A-Vit -) 1 tab PO DAILY [facility] Last Admin: 07/10/20 09:42 Dose: 1 tab Documented by: Nystatin (Mycostatin Cream -) 1 applic TP BID [facility] Last Admin: 07/10/20 21:24 Dose: 1 applic Documented by: Pantoprazole Sodium (Protonix -) 40 mg PO DAILY [facility] Last Admin: 07/10/20 09:42 Dose: 40 mg Documented by: Prednisone (Deltasone -) 40 mg PO DAILY [facility] Stop: 07/11/20 10:01 Last Admin: 07/10/20 10:05 Dose: 40 mg Documented by: Prednisone (Deltasone -) 20 mg PO DAILY [facility] Stop: 07/13/20 10:01 Prednisone (Deltasone -) 10 mg PO DAILY [facility] Stop: 07/15/20 10:01 Pregabalin (Lyrica -) 150 mg PO BID [facility] Last Admin: 07/10/20 21:23 Dose: 150 mg Documented by: Rosuvastatin Calcium (Crestor -) 40 mg PO HS [facility] Last Admin: 07/10/20 21:23 Dose: 40 mg Documented by: Sodium Chloride ([place] Nasal [place] -) 2 spray NS BID PRN PRN Reason: NASAL CONGESTION Last Admin: 07/10/20 09:49 Dose: 2 sprays Documented by: - Objective Vital Signs: Vital Signs Temperature 97.8 F 07/11/20 06:02 Pulse Rate 88 07/11/20 06:02 Respiratory Rate 18 07/11/20 06:02 Blood Pressure 102/59 L 07/11/20 06:02 O2 Sat by Pulse Oximetry (%) 90 L 07/10/20 21:00 Constitutional: Yes: Well Nourished, Calm Eyes: Yes: WNL HENT: Yes: WNL Neck: Yes: WNL Cardiovascular: Yes: Regular Rate and Rhythm, S1, S2 Respiratory: Yes: Wheezes (FEW SCATTERED HO WHEEZES,BIBASAILR CRACKLES) Gastrointestinal: Yes: Normal Bowel Sounds, Soft Extremities: Yes: WNL Edema: Yes Labs: CBC, BMP 07/11/20 05:45 INR, PTT INR 1.36 (0.83-1.09) H 06/30/20 21:30 - ....Imaging Chest X-ray: Report Reviewed, Image Reviewed Assessment/Plan A/P Acute on Chronic Diastolic Heart Failure Paroxysmal Atrial Fibrillation Aortic Regurgitation Asthma HTN Hyperlipidemia - inhaled bronchodilators - lasix - monitor urine output, creatinine - daily weights - O2 to keep SpO2 >90% - rate controlled - anticoagulation - Continue Prednisone - karen SAWYER
[2020-07-11 06:59] LABS: CREATININE 0.7 mg/dL (0.55-1.3)
--- NOTE | 2020-07-11 07:43 | PN ---
Progress Note, Physician Chief Complaint: Seen and examined in chair Leg cellulitis much improved. Experienced dyspnea over night. Additional day of IV lasix recommended by cardiology. C/o expectorating yellow sputum with mild coungh History of Present Illness: 80 year old female with a significant past medical history of hypertension, hyperlipidemia, COPD on 3L NC, CAD, atrial fibrillation (on eliquis), parkinson, hypothyroidism, breast cancer sp lumpectomy, chemo, radiation 10 years ago, bilateral total knee replacement and left hip replacement, recent right ankle sprain (4 weeks ago) who presents to the ED with BLE swelling, worse in RLE, associated with numbness, weakness and pain x 2 weeks. She also endorses dyspnea with mild exertion such as walking up and down the stairs x several days. - Current Medication List Current Medications: Active Medications Acetaminophen (Tylenol -) 650 mg PO Q6H PRN PRN Reason: PAIN LEVEL 6-10 Last Admin: 07/10/20 13:09 Dose: 650 mg Documented by: Apixaban (Eliquis -) 5 mg PO BID [facility] Last Admin: 07/10/20 21:23 Dose: 5 mg Documented by: Ascorbic Acid (Vitamin C -) 500 mg PO DAILY [facility] Last Admin: 07/10/20 09:42 Dose: 500 mg Documented by: Benzocaine/Menthol (Cepacol Lozenge -) 1 each MM PRN PRN PRN Reason: SORE THROAT Last Admin: 07/10/20 17:21 Dose: 1 each Documented by: Budesonide/Formoterol Fumarate (Symbicort 80/4.5mcg -) 1 puff IH BID [facility] Last Admin: 07/10/20 21:22 Dose: 1 puff Documented by: Escitalopram Oxalate (Lexapro -) 20 mg PO DAILY [facility] Last Admin: 07/10/20 09:43 Dose: 20 mg Documented by: Ferrous Sulfate (Feosol -) 325 mg PO DAILY [facility] Last Admin: 07/10/20 09:42 Dose: 325 mg Documented by: Furosemide (Lasix Injection -) 40 mg IVPUSH BID@0600,1400 [facility] Last Admin: 07/11/20 06:16 Dose: 40 mg Documented by: Guaifenesin (Robitussin -) 10 ml PO Q6H PRN PRN Reason: COUGH Last Admin: 07/11/20 01:41 Dose: 10 ml Documented by: Levothyroxine Sodium (Synthroid -) 50 mcg PO DAILY@0700 [facility] Last Admin: 07/11/20 06:16 Dose: 50 mcg Documented by: Lidocaine (Lidoderm Patch -) 1 patch TP DAILY [facility] Last Admin: 07/10/20 09:43 Dose: 1 patch Documented by: Losartan Potassium (Cozaar -) 25 mg PO DAILY [facility] Last Admin: 07/10/20 09:42 Dose: 25 mg Documented by: Metoprolol Succinate (Toprol Xl -) 50 mg PO DAILY [facility] Last Admin: 07/10/20 09:43 Dose: 50 mg Documented by: Miscellaneous (Lidoderm Patch Removal) 1 each MC DAILY@2200 [facility] Last Admin: 07/10/20 21:25 Dose: Not Given Documented by: Multivitamins/Minerals/Vitamin C (Tab-A-Vit -) 1 tab PO DAILY [facility] Last Admin: 07/10/20 09:42 Dose: 1 tab Documented by: Nystatin (Mycostatin Cream -) 1 applic TP BID [facility] Last Admin: 07/10/20 21:24 Dose: 1 applic Documented by: Pantoprazole Sodium (Protonix -) 40 mg PO DAILY [facility] Last Admin: 07/10/20 09:42 Dose: 40 mg Documented by: Prednisone (Deltasone -) 40 mg PO DAILY [facility] Stop: 07/11/20 10:01 Last Admin: 07/10/20 10:05 Dose: 40 mg Documented by: Prednisone (Deltasone -) 20 mg PO DAILY [facility] Stop: 07/13/20 10:01 Prednisone (Deltasone -) 10 mg PO DAILY [facility] Stop: 07/15/20 10:01 Pregabalin (Lyrica -) 150 mg PO BID [facility] Last Admin: 07/10/20 21:23 Dose: 150 mg Documented by: Rosuvastatin Calcium (Crestor -) 40 mg PO HS [facility] Last Admin: 07/10/20 21:23 Dose: 40 mg Documented by: Sodium Chloride ([place] Nasal [place] -) 2 spray NS BID PRN PRN Reason: NASAL CONGESTION Last Admin: 07/10/20 09:49 Dose: 2 sprays Documented by: - Objective Vital Signs: Vital Signs Temperature 97.8 F 07/11/20 06:02 Pulse Rate 88 07/11/20 06:02 Respiratory Rate 18 07/11/20 06:02 Blood Pressure 102/59 L 07/11/20 06:02 O2 Sat by Pulse Oximetry (%) 90 L 07/10/20 21:00 Additional Findings/Remarks: Constitutional: Yes: Well Nourished, No Distress, Calm Eyes: Yes: WNL, Conjunctiva Clear HENT: Yes: WNL, Atraumatic, Normocephalic Neck: Yes: WNL, Supple, Trachea Midline Cardiovascular: Yes: WNL, Regular Rate and Rhythm Respiratory: Yes: Regular, BL wheezing R>LDiminished (at bases), On Nasal O2 (2L) Gastrointestinal: Yes: WNL, Normal Bowel Sounds, Soft, Abdomen, Obese ...Rectal Exam: Yes: Deferred Genitourinary: Yes: WNL Breast(s): Yes: WNL Musculoskeletal: Yes: WNL Extremities: Yes: WNL Edema: Yes Edema: RUE: 2+, LLE: 1+ Peripheral Pulses WNL: Yes Peripheral Pulses: Left Radial: 2+, Right Radial: 2+, Left Doralis Pedis: 2+, R ight Dorsalis Pedis: 2+, Left Femoral: 2+, Right Femoral: 2+ Integumentary: Yes: Erythema (to LE, R>L) Neurological: Yes: WNL, Alert, Oriented ...Motor Strength: WNL Psychiatric: Yes: WNL Labs: CBC, BMP 07/11/20 05:45 07/11/20 05:45 INR, PTT INR 1.36 (0.83-1.09) H 06/30/20 21:30 Problem List - Problems (1) On home oxygen therapy Assessment/Plan: Supplemental O2 to maintain SPO2 >90% pulmonary consultation appreciated Code(s): Z99.81 - DEPENDENCE ON SUPPLEMENTAL OXYGEN (2) Parkinson disease Assessment/Plan: supportive care Code(s): G20 - PARKINSON'S DISEASE (3) S/p total knee replacement, bilateral Assessment/Plan: c/w lidoderm PT Code(s): Z96.653 - PRESENCE OF ARTIFICIAL KNEE JOINT, BILATERAL (4) Hip joint replacement status Assessment/Plan: stable Code(s): Z96.649 - PRESENCE OF UNSPECIFIED ARTIFICIAL HIP JOINT (5) Leg swelling Assessment/Plan: improved acute on chronic diastolic heart failure c/w IV lasix for one additional day daily weights, strict I/Os completed unasyn for cellulitis Code(s): M79.89 - OTHER SPECIFIED SOFT TISSUE DISORDERS (6) Afib Assessment/Plan: rate controlled c/w metoprolol, apixaban cardiology consult appreciated Code(s): I48.91 - UNSPECIFIED ATRIAL FIBRILLATION Qualifiers: Atrial fibrillation type: chronic (7) Breast CA Assessment/Plan: stable Code(s): C50.919 - MALIGNANT NEOPLASM OF UNSP SITE OF UNSPECIFIED FEMALE BREAST (8) CAD (coronary artery disease) Assessment/Plan: c/w metoprolol, statin trop .02 x 2 TTE: mild MR, EF 55-60% Code(s): I25.10 - ATHSCL HEART DISEASE OF [place] CORONARY ARTERY W/O ANG PCTRS (9) HLD (hyperlipidemia) Assessment/Plan: c/w statin Code(s): E78.5 - HYPERLIPIDEMIA, UNSPECIFIED (10) HTN (hypertension) Assessment/Plan: bp improved c/w losartan Code(s): I10 - ESSENTIAL (PRIMARY) HYPERTENSION Qualifiers: Hypertension type: essential hypertension Qualified Code(s): I10 - Es sential (primary) hypertension (11) Hypothyroid Assessment/Plan: c/w synthroid Code(s): E03.9 - HYPOTHYROIDISM, UNSPECIFIED (12) Acute on chronic diastolic (congestive) heart failure Assessment/Plan: BNP 822 on admission c/w IV lasix for one additional day daily weights, strict I/Os 07/03 TTE: EF 55-60%, mild MR/ unchanged from 03/02 EKG: Image Reviewed (nsr 62bpm, 1st degree AV block TELE: NSR, ST, PVC. 3 beat NSVT) Code(s): I50.33 - ACUTE ON CHRONIC DIASTOLIC (CONGESTIVE) HEART FAILURE (13) Chronic pain Assessment/Plan: pain to knees BL tramadol with tylenol prn lidoderm patch PT Code(s): G89.29 - OTHER CHRONIC PAIN (14) COVID-19 ruled out Assessment/Plan: neg pcr Code(s): Z03.818 - ENCNTR FOR OBS FOR SUSP EXPSR TO OTH BIOLG AGENTS RULED OUT (15) NSVT (nonsustained ventricular tachycardia) Assessment/Plan: history of Keep K+>4 and Mg>2.0 Code(s): I47.2 - VENTRICULAR TACHYCARDIA (16) COPD (chronic obstructive pulmonary disease) Assessment/Plan: on 3 liters nasal cannula (home oxygen dependent) patient is wheezing complete course of ABx continue on bronchodilators, saline nebs c/w prednison taper Code(s): J44.9 - CHRONIC OBSTRUCTIVE PULMONARY DISEASE, UNSPECIFIED Visit type - Emergency Visit Emergency Visit: Yes ED Registration Date: 06/30/20 Care time: The patient presented to the Emergency Department on the above date and was hospitalized for further evaluation of their emergent condition. - New Patient This patient is new to me today: No - Critical Care Critical Care patient: No - Discharge Referral Referred to [facility] Med [facility].C[facility] No - Medication Review Med list reviewed for High Risk Meds patients 65 and older: Yes
[2020-07-11] MEDS ORDERED: ESCITALOPRAM OXALATE 10 MG TABLET ONE (08:56)
[2020-07-11] MEDS: BENZOCAINE/MENTH/CETYLPYRD CL 1 EACH LOZENGE MM PRN ×2 (09:17→13:57)
[2020-07-11] MEDS: LIDOCAINE 5% TOPICAL PATCH TP SCH (09:17)
[2020-07-11] MEDS: PREGABALIN 75 MG CAPSULE PO SCH ×2 (09:17→21:34)
[2020-07-11] MEDS: PANTOPRAZOLE 40 MG TABLET PO SCH (09:17)
[2020-07-11] MEDS: MULTIVITAMINS (DAILY MVI) TABLET (FP) PO SCH (09:18)
[2020-07-11] MEDS: predniSONE 20 MG TABLET (UD) PO SCH (09:18)
[2020-07-11] MEDS: ACETAMINOPHEN 325 MG TABLET (FP) PO PRN ×2 (09:18→14:33)
[2020-07-11] MEDS: FERROUS SO4 325 MG TABLET (FP) PO SCH (09:19)
[2020-07-11] MEDS: ASCORBIC ACID 500 MG TABLET (FP) PO SCH (09:19)
[2020-07-11] MEDS: ESCITALOPRAM OXALATE 20 MG TABLET PO SCH (09:19)
[2020-07-11] MEDS: APIXABAN 5 MG TABLET PO SCH ×2 (09:19→21:34)
[2020-07-11] MEDS: SODIUM CHLORIDE NASAL SPRAY 44 ML BOTTLE NS PRN (09:23)
[2020-07-11] MEDS: BUDESONIDE/FORMETEROL FUMARATE 80/4.5 mcg INHALER IH SCH ×2 (09:24→21:37)
[2020-07-11] MEDS: NYSTATIN 100,000 UNIT/GM TOPICAL CREAM 15 GM TUBE TP SCH ×2 (10:37→21:37)
--- NOTE | 2020-07-11 11:27 | PN ---
Progress Note (short form) - Note Progress Note: Chief Complaint: sob, cough s: no cp palps dizzy edema Current Medications Generic Name Dose Route Start Last Admin Trade Name Freq PRN Reason Stop Dose Admin Acetaminophen 650 mg 07/01/20 15:46 07/11/20 09:18 Tylenol - PO 650 mg Q6H PRN Administration PAIN LEVEL 6-10 Apixaban 5 mg 07/01/20 10:00 07/11/20 09:19 Eliquis - PO 5 mg BID [facility] Administration Ascorbic Acid 500 mg 07/01/20 10:00 07/11/20 09:19 Vitamin C - PO 500 mg DAILY [facility] Administration Benzocaine/Menthol 1 each 07/09/20 06:46 07/11/20 09:17 Cepacol Lozenge - MM 1 each PRN PRN Administration SORE THROAT Budesonide/Formoterol Fumarate 1 puff 07/01/20 10:00 07/11/20 09:24 Symbicort 80/4.5mcg - IH 1 puff BID [facility] Administration Escitalopram Oxalate 20 mg 07/01/20 10:00 07/11/20 09:19 Lexapro - PO 20 mg DAILY [facility] Administration Ferrous Sulfate 325 mg 07/01/20 10:00 07/11/20 09:19 Feosol - PO 325 mg DAILY [facility] Administration Furosemide 40 mg 07/08/20 14:00 07/11/20 06:16 Lasix Injection - IVPUSH 40 mg BID@0600,1400 [facility] Administration Guaifenesin 10 ml 07/05/20 05:59 07/11/20 01:41 Robitussin - PO 10 ml Q6H PRN Administration COUGH Levothyroxine Sodium 50 mcg 07/01/20 10:00 07/11/20 06:16 Synthroid - PO 50 mcg DAILY@0700 [facility] Administration Lidocaine 1 patch 07/01/20 11:15 07/11/20 09:17 Lidoderm Patch - TP 1 patch DAILY [facility] Administration Losartan Potassium 25 mg 07/03/20 10:00 07/10/20 09:42 Cozaar - PO 25 mg DAILY [facility] Administration Metoprolol Succinate 50 mg 07/01/20 10:00 07/10/20 09:43 Toprol Xl - PO 50 mg DAILY [facility] Administration Miscellaneous 1 each 07/01/20 22:00 07/10/20 21:25 Lidoderm Patch Removal MC Not Given DAILY@2200 [facility] Multivitamins/Minerals/Vitamin C 1 tab 07/01/20 10:00 07/11/20 09:18 Tab-A-Vit - PO 1 tab DAILY [facility] Administration Nystatin 1 applic 07/05/20 12:30 07/11/20 10:37 Mycostatin Cream - TP 1 applic BID [facility] Administration Pantoprazole Sodium 40 mg 07/01/20 10:00 07/11/20 09:17 Protonix - PO 40 mg DAILY [facility] Administration Prednisone 20 mg 07/12/20 10:00 Deltasone - PO 07/13/20 10:01 DAILY [facility] Prednisone 10 mg 07/14/20 10:00 Deltasone - PO 07/15/20 10:01 DAILY [facility] Pregabalin 150 mg 07/01/20 10:00 07/11/20 09:17 Lyrica - PO 150 mg BID [facility] Administration Rosuvastatin Calcium 40 mg 07/02/20 21:27 07/10/20 21:23 Crestor - PO 40 mg HS [facility] Administration Sodium Chloride 2 spray 07/06/20 07:40 07/11/20 09:23 [place] Nasal [place] - NS 2 sprays BID PRN Administration NASAL CONGESTION Vital Signs Period Temp Pulse Resp BP Sys/Bocanegra Pulse Ox Last 24 Hr 97.8 F-98.9 F 85-102 18-20 92-111/46-69 90-97 Constitutional: Yes: No Distress, Calm Eyes: Yes: Conjunctiva Clear Cardiovascular: Yes: Regular Rate and Rhythm Respiratory: Yes: bl mild wheeze , nl eff Gastrointestinal: Yes: Soft, Abdomen, Obese Edema: no Peripheral Pulses WNL: Yes Neurological: Yes: Alert, Oriented no jaundice diaphoresis tele: sr echo 02/2020: Moderate AR, normal biV fx echo 06/2020 nl LV function, LA mildly dilated, mild MAC, mild MR, mild aortic sclerosis, mild AR IMP: PAF Acute on chronic diastolic CHF NSVT AR LE cellulitis HTN HLD Asthma REC: PAF: -stable, cont Eliquis and Toprol Acute on chronic diastolic CHF: -unclear precipitant, possibly infection/cellulitis -no signs acs -nl LV function on echo here -cxr clear, symptoms improving, however had worsening dyspnea this am -cont iv lasix, daily chem7, wts for now, if improved in AM will likely change to PO lasix -dobutamine nuclear stress showed a partially reversible anteroapical perfusion defect. 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 Stress test findings d/w Dr Vargsa at [facility]. Current perfusion defect is similar to results there in OCT 2019 (she additionally had a lateral wall defect on that exam) and underwent cath showing non-obstructive CAD. hence do not suspect obstructive CAD at this time--cont med mgmt NSVT: -nl EF on echo -Keep K+ and Mg2- >4 and 2 respectively LE cellulitis: improving -as per primary team HTN: -stable HLD: -stable, outpatient f/u Asthma: -has wheezing and productive cough, plans per pulm/primary, on prednisone taper
[2020-07-11] MEDS: LOSARTAN POTASSIUM 25 MG TABLET PO SCH (11:35)
[2020-07-11] MEDS: predniSONE 10 MG TABLET (UD) PO SCH (11:41)
--- NOTE | 2020-07-11 13:09 | PN ---
Progress Note, Physician History of Present Illness: no new issues - Current Medication List Current Medications: Active Medications Acetaminophen (Tylenol -) 650 mg PO Q6H PRN PRN Reason: PAIN LEVEL 6-10 Last Admin: 07/11/20 09:18 Dose: 650 mg Documented by: Apixaban (Eliquis -) 5 mg PO BID [facility] Last Admin: 07/11/20 09:19 Dose: 5 mg Documented by: Ascorbic Acid (Vitamin C -) 500 mg PO DAILY [facility] Last Admin: 07/11/20 09:19 Dose: 500 mg Documented by: Benzocaine/Menthol (Cepacol Lozenge -) 1 each MM PRN PRN PRN Reason: SORE THROAT Last Admin: 07/11/20 09:17 Dose: 1 each Documented by: Budesonide/Formoterol Fumarate (Symbicort 80/4.5mcg -) 1 puff IH BID [facility] Last Admin: 07/11/20 09:24 Dose: 1 puff Documented by: Escitalopram Oxalate (Lexapro -) 20 mg PO DAILY [facility] Last Admin: 07/11/20 09:19 Dose: 20 mg Documented by: Ferrous Sulfate (Feosol -) 325 mg PO DAILY [facility] Last Admin: 07/11/20 09:19 Dose: 325 mg Documented by: Furosemide (Lasix Injection -) 40 mg IVPUSH BID@0600,1400 [facility] Last Admin: 07/11/20 06:16 Dose: 40 mg Documented by: Guaifenesin (Robitussin -) 10 ml PO Q6H PRN PRN Reason: COUGH Last Admin: 07/11/20 01:41 Dose: 10 ml Documented by: Levothyroxine Sodium (Synthroid -) 50 mcg PO DAILY@0700 [facility] Last Admin: 07/11/20 06:16 Dose: 50 mcg Documented by: Lidocaine (Lidoderm Patch -) 1 patch TP DAILY [facility] Last Admin: 07/11/20 09:17 Dose: 1 patch Documented by: Losartan Potassium (Cozaar -) 25 mg PO DAILY [facility] Last Admin: 07/11/20 11:35 Dose: 25 mg Documented by: Metoprolol Succinate (Toprol Xl -) 50 mg PO DAILY [facility] Last Admin: 07/11/20 11:35 Dose: 50 mg Documented by: Miscellaneous (Lidoderm Patch Removal) 1 each MC DAILY@2200 [facility] Last Admin: 07/10/20 21:25 Dose: Not Given Documented by: Multivitamins/Minerals/Vitamin C (Tab-A-Vit -) 1 tab PO DAILY [facility] Last Admin: 07/11/20 09:18 Dose: 1 tab Documented by: Nystatin (Mycostatin Cream -) 1 applic TP BID [facility] Last Admin: 07/11/20 10:37 Dose: 1 applic Documented by: Pantoprazole Sodium (Protonix -) 40 mg PO DAILY [facility] Last Admin: 07/11/20 09:17 Dose: 40 mg Documented by: Prednisone (Deltasone -) 30 mg PO DAILY [facility] Last Admin: 07/11/20 11:41 Dose: Not Given Documented by: Pregabalin (Lyrica -) 150 mg PO BID [facility] Last Admin: 07/11/20 09:17 Dose: 150 mg Documented by: Rosuvastatin Calcium (Crestor -) 40 mg PO HS [facility] Last Admin: 07/10/20 21:23 Dose: 40 mg Documented by: Sodium Chloride ([place] Nasal [place] -) 2 spray NS BID PRN PRN Reason: NASAL CONGESTION Last Admin: 07/11/20 09:23 Dose: 2 sprays Documented by: - Objective Vital Signs: Vital Signs Temperature 98.9 F 07/11/20 09:41 Pulse Rate 88 07/11/20 09:41 Respiratory Rate 18 07/11/20 09:41 Blood Pressure 100/56 L 07/11/20 11:37 O2 Sat by Pulse Oximetry (%) 97 07/11/20 09:41 Constitutional: Yes: No Distress, Calm Cardiovascular: Yes: S1, S2 Respiratory: Yes: Regular, CTA Bilaterally, On Nasal O2 Gastrointestinal: Yes: Normal Bowel Sounds, Soft Musculoskeletal: Yes: WNL Extremities: Yes: WNL Neurological: Yes: Alert, Oriented Psychiatric: Yes: Alert, Oriented Labs: CBC, BMP 07/11/20 05:45 07/11/20 05:45 INR, PTT INR 1.36 (0.83-1.09) H 06/30/20 21:30 Assessment/Plan Problem List - Problems (1) Acute on chronic diastolic (congestive) heart failure Code(s): I50.33 - ACUTE ON CHRONIC DIASTOLIC (CONGESTIVE) HEART FAILURE (2) Hip joint replacement status Code(s): Z96.649 - PRESENCE OF UNSPECIFIED ARTIFICIAL HIP JOINT (3) Leg swelling Code(s): M79.89 - OTHER SPECIFIED SOFT TISSUE DISORDERS (4) On home oxygen therapy Code(s): Z99.81 - DEPENDENCE ON SUPPLEMENTAL OXYGEN (5) Parkinson disease Code(s): G20 - PARKINSON'S DISEASE (6) S/p total knee replacement, bilateral Code(s): Z96.653 - PRESENCE OF ARTIFICIAL KNEE JOINT, BILATERAL (7) Atrial fibrillation Code(s): I48.91 - UNSPECIFIED ATRIAL FIBRILLATION (8) CAD (coronary artery disease) Code(s): I25.10 - ATHSCL HEART DISEASE OF [place] CORONARY ARTERY W/O ANG PCTRS (9) COPD (chronic obstructive pulmonary disease) Code(s): J44.9 - CHRONIC OBSTRUCTIVE PULMONARY DISEASE, UNSPECIFIED (10) Cellulitis Code(s): L03.90 - CELLULITIS, UNSPECIFIED (11) GERD (gastroesophageal reflux disease) Code(s): K21.9 - GASTRO-ESOPHAGEAL REFLUX DISEASE WITHOUT ESOPHAGITIS (12) HLD (hyperlipidemia) Code(s): E78.5 - HYPERLIPIDEMIA, UNSPECIFIED (13) HTN (hypertension) Code(s): I10 - ESSENTIAL (PRIMARY) HYPERTENSION Qualifiers: Hypertension type: essential hypertension Qualified Code(s): I10 - Essential (primary) hypertension (14) History of breast cancer Code(s): Z85.3 - PERSONAL HISTORY OF MALIGNANT NEOPLASM OF BREAST Assessment/Plan RLE cellulitis b/l LE edema Acute on chronic CHF COPD on home O2 HTN HLD CAD PAF Parkinsons hypothyroidism hx of Breast CA s/p lumpectomy/RT/chemo s/p b/l TKR s/p Lt THR plan elevation of the legs stop all abx
[2020-07-11] MEDS ORDERED: SODIUM CHLORIDE FOR INHALATION 3 ML VIAL.NEB IH PRN (15:43)
[2020-07-11] MEDS ORDERED: ALBUTEROL SO4 2.5/IPRATROPIUM 0.5 INH SOL 3 ML VIAL.NEB. NEB ONE (16:45)
[2020-07-11] MEDS: ALBUTEROL SO4 2.5/IPRATROPIUM 0.5 INH SOL 3 ML VIAL.NEB. NEB SCH (16:51)
[2020-07-11] MEDS: ROSUVASTATIN CA 20 MG TABLET (FP) PO SCH (21:35)
[2020-07-11] MEDS: LIDOCAINE PATCH REMOVAL MC SCH (21:35)
[2020-07-12] MEDS: LEVOTHYROXINE NA 50 MCG TABLET (FP) PO SCH (06:23)
[2020-07-12] MEDS: FUROSEMIDE 40 MG/4 ML INJECTABLE VIAL IVPUSH SCH (06:23)
[2020-07-12] MEDS: BENZOCAINE/MENTH/CETYLPYRD CL 1 EACH LOZENGE MM PRN (06:23)
[2020-07-12 06:59] LABS: BASO % 0.2 % (0-2.0); EOS % 0.2 % (0-4.5); HEMATOCRIT 32.3 % (32.4-45.2); HEMOGLOBIN 10.5 GM/dL (10.7-15.3); LYMPH % 34.9 % (8-40); MCH 30.2 pg (25.7-33.7); MCHC 32.4 g/dl (32.0-36.0); MEAN CELL VOLUME 93.1 fl (80-96); MONO % 10.7 % (3.8-10.2); PLATELET COUNT 177 K/MM3 (134-434); RBC 3.46 M/mm3 (3.60-5.2); RDW 14.8 % (11.6-15.6); WHITE BLOOD COUNT 6.5 K/mm3 (4.0-10.0)
--- NOTE | 2020-07-12 07:04 | PN ---
Progress Note, Physician History of Present Illness: PULMONARY ALERT,COMFORTABLE,SOB IMPROVING - Current Medication List Current Medications: Active Medications Acetaminophen (Tylenol -) 650 mg PO Q6H PRN PRN Reason: PAIN LEVEL 6-10 Last Admin: 07/11/20 14:33 Dose: 650 mg Documented by: Apixaban (Eliquis -) 5 mg PO BID [facility] Last Admin: 07/11/20 21:34 Dose: 5 mg Documented by: Ascorbic Acid (Vitamin C -) 500 mg PO DAILY [facility] Last Admin: 07/11/20 09:19 Dose: 500 mg Documented by: Benzocaine/Menthol (Cepacol Lozenge -) 1 each MM PRN PRN PRN Reason: SORE THROAT Last Admin: 07/12/20 06:23 Dose: 1 each Documented by: Budesonide/Formoterol Fumarate (Symbicort 80/4.5mcg -) 1 puff IH BID [facility] Last Admin: 07/11/20 21:37 Dose: 1 puff Documented by: Escitalopram Oxalate (Lexapro -) 20 mg PO DAILY [facility] Last Admin: 07/11/20 09:19 Dose: 20 mg Documented by: Ferrous Sulfate (Feosol -) 325 mg PO DAILY [facility] Last Admin: 07/11/20 09:19 Dose: 325 mg Documented by: Furosemide (Lasix Injection -) 40 mg IVPUSH BID@0600,1400 [facility] Last Admin: 07/12/20 06:23 Dose: 40 mg Documented by: Guaifenesin (Robitussin -) 10 ml PO Q6H PRN PRN Reason: COUGH Last Admin: 07/11/20 01:41 Dose: 10 ml Documented by: Levothyroxine Sodium (Synthroid -) 50 mcg PO DAILY@0700 [facility] Last Admin: 07/12/20 06:23 Dose: 50 mcg Documented by: Lidocaine (Lidoderm Patch -) 1 patch TP DAILY [facility] Last Admin: 07/11/20 09:17 Dose: 1 patch Documented by: Losartan Potassium (Cozaar -) 25 mg PO DAILY [facility] Last Admin: 07/11/20 11:35 Dose: 25 mg Documented by: Metoprolol Succinate (Toprol Xl -) 50 mg PO DAILY [facility] Last Admin: 07/11/20 11:35 Dose: 50 mg Documented by: Miscellaneous (Lidoderm Patch Removal) 1 each MC DAILY@2200 [facility] Last Admin: 07/11/20 21:35 Dose: Not Given Documented by: Multivitamins/Minerals/Vitamin C (Tab-A-Vit -) 1 tab PO DAILY [facility] Last Admin: 07/11/20 09:18 Dose: 1 tab Documented by: Nystatin (Mycostatin Cream -) 1 applic TP BID [facility] Last Admin: 07/11/20 21:37 Dose: 1 applic Documented by: Pantoprazole Sodium (Protonix -) 40 mg PO DAILY [facility] Last Admin: 07/11/20 09:17 Dose: 40 mg Documented by: Prednisone (Deltasone -) 30 mg PO DAILY [facility] Last Admin: 07/11/20 11:41 Dose: Not Given Documented by: Pregabalin (Lyrica -) 150 mg PO BID [facility] Last Admin: 07/11/20 21:34 Dose: 150 mg Documented by: Rosuvastatin Calcium (Crestor -) 40 mg PO HS [facility] Last Admin: 07/11/20 21:35 Dose: 40 mg Documented by: Sodium Chloride ([place] Nasal [place] -) 2 spray NS BID PRN PRN Reason: NASAL CONGESTION Last Admin: 07/11/20 09:23 Dose: 2 sprays Documented by: Sodium Chloride (Normal Saline For Inhalation -) 3 ml IH Q6H PRN PRN Reason: COUGH - Objective Vital Signs: Vital Signs Temperature 97.8 F 07/12/20 06:00 Pulse Rate 106 H 07/12/20 06:00 Respiratory Rate 18 07/12/20 06:00 Blood Pressure 103/61 07/12/20 06:00 O2 Sat by Pulse Oximetry (%) 98 07/12/20 06:00 Constitutional: Yes: Well Nourished, Calm Eyes: Yes: WNL HENT: Yes: WNL Neck: Yes: WNL Cardiovascular: Yes: Regular Rate and Rhythm, S1, S2 Respiratory: Yes: Rales (FEW BIBASAILR RALES,LESS WHEEZING) Gastrointestinal: Yes: Normal Bowel Sounds, Soft Extremities: Yes: WNL Edema: Yes Labs: INR, PTT INR 1.36 (0.83-1.09) H 06/30/20 21:30 Assessment/Plan A/P Acute on Chronic Diastolic Heart Failure Paroxysmal Atrial Fibrillation Aortic Regurgitation Asthma HTN Hyperlipidemia - inhaled bronchodilators - lasix - monitor urine output, creatinine - daily weights - O2 to keep SpO2 >90% - rate controlled - anticoagulation - Prednisone - robitussin DR SAWYER
[2020-07-12 07:10] LABS: POTASSIUM 3.6 mmol/L (3.5-5.1)
[2020-07-12 07:11] LABS: CALCIUM 8.8 mg/dL (8.5-10.1)
[2020-07-12 07:12] LABS: ALBUMIN 3.2 g/dl (3.4-5.0); BLOOD UREA NITROGEN 26.2 mg/dL (7-18); MAGNESIUM 2.1 mg/dL (1.8-2.4)
[2020-07-12 07:15] LABS: CREATININE 0.7 mg/dL (0.55-1.3)
[2020-07-12 07:17] LABS: BILIRUBIN,TOTAL 0.3 mg/dL (0.2-1); TOT PROT 6.3 g/dl (6.4-8.2)
--- NOTE | 2020-07-12 07:48 | DS ---
Physical Exam: SUBJECTIVE: Patient seen and examined OBJECTIVE: Vital Signs Period Temp Pulse Resp BP Sys/Bocanegra Pulse Ox Last 24 Hr 97.8 [id number] F 79-106 18-18 86-122/43-68 97-98 PHYSICAL EXAM Constitutional: Yes: Well Nourished, No Distress, Calm Eyes: Yes: WNL, Conjunctiva Clear HENT: Yes: WNL, Atraumatic, Normocephalic Neck: Yes: WNL, Supple, Trachea Midline Cardiovascular: Yes: WNL, Regular Rate and Rhythm Respiratory: Yes: Regular, BL wheezing R>LDiminished (at bases), On Nasal O2 (2L) Gastrointestinal: Yes: WNL, Normal Bowel Sounds, Soft, Abdomen, Obese ...Rectal Exam: Yes: Deferred Genitourinary: Yes: WNL Breast(s): Yes: WNL Musculoskeletal: Yes: WNL Extremities: Yes: WNL Edema: Yes Edema: RUE: 2+, LLE: 1+ Peripheral Pulses WNL: Yes Peripheral Pulses: Left Radial: 2+, Right Radial: 2+, Left Doralis Pedis: 2+, Right Dorsalis Pedis: 2+, Left Femoral: 2+, Right Femoral: 2+ Integumentary: Yes: Erythema (to LE, R>L) Neurological: Yes: WNL, Alert, Oriented ...Motor Strength: WNL Psychiatric: Yes: WNL LABS Laboratory Results - last 24 hr 07/12/20 07/12/20 05:37 05:37 WBC 6.5 RBC 3.46 L Hgb 10.5 L Hct 32.3 L MCV 93.1 MCH 30.2 MCHC 32.4 RDW 14.8 Plt Count 177 MPV 9.0 Absolute Neuts (auto) 3.5 Neutrophils % 54.0 Lymphocytes % 34.9 Monocytes % 10.7 H Eosinophils % 0.2 Basophils % 0.2 Nucleated RBC % 0 Sodium 141 Potassium 3.6 Chloride 103 Carbon Dioxide 33 H Anion Gap 5 L BUN 26.2 H Creatinine 0.7 Est GFR (CKD-EPI)AfAm 94.18 Est GFR (CKD-EPI)NonAf 81.26 Random Glucose 84 Calcium 8.8 Magnesium 2.1 Total Bilirubin 0.3 AST 16 ALT 27 Alkaline Phosphatase 44 L Total Protein 6.3 L Albumin 3.2 L HOSPITAL COURSE: Date of Admission:06/30/20 Date of Discharge: 07/12/20 Problem List - Problems (1) On home oxygen therapy Assessment/Plan: Supplemental O2 to maintain SPO2 >90% pulmonary consultation appreciated Code(s): Z99.81 - DEPENDENCE ON SUPPLEMENTAL OXYGEN (2) Parkinson disease Assessment/Plan: supportive care Code(s): G20 - PARKINSON'S DISEASE (3) S/p total knee replacement, bilateral Assessment/Plan: c/w lidoderm PT Code(s): Z96.653 - PRESENCE OF ARTIFICIAL KNEE JOINT, BILATERAL (4) Hip joint replacement status Assessment/Plan: stable Code(s): Z96.649 - PRESENCE OF UNSPECIFIED ARTIFICIAL HIP JOINT (5) Leg swelling Assessment/Plan: improved acute on chronic diastolic heart failure c/w IV PO lasix daily weights, strict I/Os completed unasyn for cellulitis Code(s): M79.89 - OTHER SPECIFIED SOFT TISSUE DISORDERS (6) Afib Assessment/Plan: rate controlled c/w metoprolol, apixaban cardiology consult appreciated Code(s): I48.91 - UNSPECIFIED ATRIAL FIBRILLATION Qualifiers: Atrial fibrillation type: chronic (7) Breast CA Assessment/Plan: stable Code(s): C50.919 - MALIGNANT NEOPLASM OF UNSP SITE OF UNSPECIFIED FEMALE BREAST (8) CAD (coronary artery disease) Assessment/Plan: c/w metoprolol, statin trop .02 x 2 TTE: mild MR, EF 55-60% Code(s): I25.10 - ATHSCL HEART DISEASE OF [place] CORONARY ARTERY W/O ANG PCTRS (9) HLD (hyperlipidemia) Assessment/Plan: c/w statin Code(s): E78.5 - HYPERLIPIDEMIA, UNSPECIFIED (10) HTN (hypertension) Assessment/Plan: bp improved c/w losartan at decreased dose Code(s): I10 - ESSENTIAL (PRIMARY) HYPERTENSION Qualifiers: Hypertension type: essential hypertension Qualified Code(s): I10 - Essential (primary) hypertension (11) Hypothyroid Assessment/Plan: c/w synthroid Code(s): E03.9 - HYPOTHYROIDISM, UNSPECIFIED (12) Acute on chronic diastolic (congestive) heart failure Assessment/Plan: BNP 822 on admission c/w lasix daily weights, strict I/Os 07/03 TTE: EF 55-60%, mild MR/ unchanged from 03/02 EKG: Image Reviewed (nsr 62bpm, 1st degree AV block TELE: NSR, ST, PVC. 3 beat NSVT) Code(s): I50.33 - ACUTE ON CHRONIC DIASTOLIC (CONGESTIVE) HEART FAILURE (13) Chronic pain Assessment/Plan: pain to knees BL tramadol with tylenol prn lidoderm patch PT Code(s): G89.29 - OTHER CHRONIC PAIN (14) COVID-19 ruled out Assessment/Plan: neg pcr Code(s): Z03.818 - ENCNTR FOR OBS FOR SUSP EXPSR TO OTH BIOLG AGENTS RULED OUT (15) NSVT (nonsustained ventricular tachycardia) Assessment/Plan: Code(s): I47.2 - VENTRICULAR TACHYCARDIA (16) COPD (chronic obstructive pulmonary disease) Assessment/Plan: on 3 liters nasal cannula (home oxygen dependent) wheezing resolved complete course of ABx continue on bronchodilators, saline nebs c/w prednisone taper Code(s): J44.9 - CHRONIC OBSTRUCTIVE PULMONARY DISEASE, UNSPECIFIED Minutes to complete discharge: 55 Discharge Summary Problems reviewed: Yes Reason For Visit: EDEMA OF LOWER EXTREMITY Current Active Problems Acute on chronic diastolic (congestive) heart failure (Acute) COVID-19 ruled out (Acute) Cellulitis of right anterior lower leg (Acute) Chronic pain (Acute) Hip joint replacement status (Acute) Leg swelling (Acute) NSVT (nonsustained ventricular tachycardia) (Acute) On home oxygen therapy (Acute) Parkinson disease (Acute) S/p total knee replacement, bilateral (Acute) Suspected COVID-19 virus infection (Acute) Condition: Improved - Instructions Diet, Activity, Other Instructions: DISCHARGE YOUR VISIT You came to the hospital because your legs were swollen and you developed an infection. You were treated with IV antibiotics and then transitioned to oral. You completed the antibiotic course. You also needed additional dieuretics- LASIX- to removed excess fluid. You were also given a oqcaxrx-[id number] help with inflammation in your lungs-and your breathing improved. Continue with the taper below. You can also use the DUONEBs alternating with the SALINE nebulizers with the oxygen if you have trouble breathing. Your blood pressure has been running on the lower side-the LOSARTAN/COZAAR-was decreased to 25mg daily. Follow with your felt hooker and primary provider to maintain the doses. Keep you legs elevated with sitting and wear the TEDs stocking if standing for prolong peroids of time. MEDICATIONS Please continue to take your home medications as prescribed. There was some changes PREDNISONE TAPER 30 mg x 1 days 20 mg x 3 days 10 mg x 3 days LOSARTAN 25mg daily LASIX 40mg twice a day NEBULIZERS as needed DIET Continue your home diet ADDITIONAL CARE Please make an appointment to see your primary care provider Dr Henry, 1 week from today. ADDITIONAL INFORMATION Please call 911 or come directly to the emergency department if you experience unusual headache, vision change, shortness of breath, chest pain, numbness, tingling, loss of alertness/awareness, loss of function, unusual bleeding or any alarming symptoms. Thank you for allowing me to care for you. Cameron Culp, [facility], [facility] [phone] Referrals: Aureliano Henry MD [Primary Care Provider] - Disposition: HOME - Home Medications Comprehensive Discharge Medication List: Ambulatory Orders Apixaban [Eliquis] 5 mg PO BID #60 tablet 11/08/19 Ferrous Sulfate [Feosol] 325 mg PO DAILY #30 ud 11/08/19 Levothyroxine [Synthroid -] 50 mcg PO DAILY #30 tablet 11/08/19 Metoprolol Succinate [Toprol XL -] 50 mg PO DAILY #30 tab.sr.24h 11/08/19 Pantoprazole Sodium [Protonix -] 40 mg PO DAILY #30 tablet.ec 11/08/19 Budesonide/Formeterol Fumarate [SYMBICORT 80/4.5mcg -] 1 puff IH BID 03/01/20 Rosuvastatin [Crestor -] 40 mg PO HS 03/01/20 Ascorbate Calcium [Vitamin C] 600 mg PO DAILY 07/01/20 Cyanocobalamin (Vitamin B-12) [Vitamin B-12] 1,000 mcg PO 07/01/20 Pregabalin [Lyrica -] 150 mg PO DAILY 07/01/20 Tramadol HCl/Acetaminophen [Tramadol-Acetaminophn 37.5-325] 1 each PO BID 07/01/20 Acetaminophen [Tylenol .Regular Strength -] 650 mg PO Q6H PRN tablet 07/12/20 Apixaban [Eliquis -] 5 mg PO BID tablet 07/12/20 Ascorbic Acid [Vitamin C -] 500 mg PO DAILY tablet 07/12/20 Escitalopram Oxalate [Lexapro -] 20 mg PO DAILY tablet 07/12/20 Guaifenesin [Robitussin -] 10 ml PO Q6H PRN cup 07/12/20 Lidocaine 5% Patch [Lidoderm -] 1 patch TP DAILY #30 patch 07/12/20 Losartan Potassium [Cozaar -] 25 mg PO DAILY #30 tablet 07/12/20 Multivitamins [Multivit ([facility] Formulary)] 1 tab PO DAILY tab 07/12/20 Nystatin Cream [Mycostatin Cream -] 1 applic TP BID applic 07/12/20 Potassium Chloride [K-Dur -] 40 meq PO BID #14 tablet.er 07/12/20 Pregabalin [Lyrica -] 150 mg PO BID capsule 07/12/20 Sodium Chloride Nasal [place] [[place] Nasal [place] -] 2 spray NS BID PRN spray 07/12/20 predniSONE [Deltasone -] 10 mg PO DAILY #12 tablet 07/12/20 Prescription Drug Monitoring Program (I-STOP) results: I-STOP reviewed and no issues identified Problem List - Problems (1) On home oxygen therapy Code(s): Z99.81 - DEPENDENCE ON SUPPLEMENTAL OXYGEN (2) Parkinson disease Code(s): G20 - PARKINSON'S DISEASE (3) S/p total knee replacement, bilateral Code(s): Z96.653 - PRESENCE OF ARTIFICIAL KNEE JOINT, BILATERAL (4) Hip joint replacement status Code(s): Z96.649 - PRESENCE OF UNSPECIFIED ARTIFICIAL HIP JOINT (5) Leg swelling Code(s): M79.89 - OTHER SPECIFIED SOFT TISSUE DISORDERS (6) Afib Code(s): I48.91 - UNSPECIFIED ATRIAL FIBRILLATION Qualifiers: Atrial fibrillation type: chronic (7) Breast CA Code(s): C50.919 - MALIGNANT NEOPLASM OF UNSP SITE OF UNSPECIFIED FEMALE BREAST (8) CAD (coronary artery disease) Code(s): I25.10 - ATHSCL HEART DISEASE OF [place] CORONARY ARTERY W/O ANG PCTRS (9) HLD (hyperlipidemia) Code(s): E78.5 - HYPERLIPIDEMIA, UNSPECIFIED (10) HTN (hypertension) Code(s): I10 - ESSENTIAL (PRIMARY) HYPERTENSION Qualifiers: Hypertension type: essential hypertension Qualified Code(s): I10 - Essential (primary) hypertension (11) Hypothyroid Code(s): E03.9 - HYPOTHYROIDISM, UNSPECIFIED (12) Acute on chronic diastolic (congestive) heart failure Code(s): I50.33 - ACUTE ON CHRONIC DIASTOLIC (CONGESTIVE) HEART FAILURE (13) Chronic pain Code(s): G89.29 - OTHER CHRONIC PAIN (14) COVID-19 ruled out Code(s): Z03.818 - ENCNTR FOR OBS FOR SUSP EXPSR TO OTH BIOLG AGENTS RULED OUT (15) NSVT (nonsustained ventricular tachycardia) Code(s): I47.2 - VENTRICULAR TACHYCARDIA (16) COPD (chronic obstructive pulmonary disease) Code(s): J44.9 - CHRONIC OBSTRUCTIVE PULMONARY DISEASE, UNSPECIFIED This patient is new to me today: No Emergency Visit: Yes ED Registration Date: 06/30/20 Care time: The patient presented to the Emergency Department on the above date and was hospitalized for further evaluation of their emergent condition. Critical Care patient: No - Discharge Referral Referred to [facility] Med [facility] No
[2020-07-12] MEDS ORDERED: ESCITALOPRAM OXALATE 10 MG TABLET ONE (09:05)
[2020-07-12] MEDS ORDERED: PT OWN MED DRAWER 7, Y5N ONE (09:09)
[2020-07-12] MEDS: PREGABALIN 75 MG CAPSULE PO SCH (09:10)
[2020-07-12] MEDS: PANTOPRAZOLE 40 MG TABLET PO SCH (09:11)
[2020-07-12] MEDS: ESCITALOPRAM OXALATE 20 MG TABLET PO SCH (09:11)
[2020-07-12] MEDS: LOSARTAN POTASSIUM 25 MG TABLET PO SCH (09:11)
[2020-07-12] MEDS: ASCORBIC ACID 500 MG TABLET (FP) PO SCH (09:11)
[2020-07-12] MEDS: MULTIVITAMINS (DAILY MVI) TABLET (FP) PO SCH (09:12)
[2020-07-12] MEDS: LIDOCAINE 5% TOPICAL PATCH TP SCH (09:12)
[2020-07-12] MEDS: APIXABAN 5 MG TABLET PO SCH (09:12)
[2020-07-12] MEDS: FERROUS SO4 325 MG TABLET (FP) PO SCH (09:12)
[2020-07-12] MEDS: predniSONE 10 MG TABLET (UD) PO SCH (09:12)
[2020-07-12] MEDS: NYSTATIN 100,000 UNIT/GM TOPICAL CREAM 15 GM TUBE TP SCH (09:13)
[2020-07-12] MEDS: BUDESONIDE/FORMETEROL FUMARATE 80/4.5 mcg INHALER IH SCH (09:13)
[2020-07-12] MEDS ORDERED: predniSONE 20 MG TABLET (UD) PO SCH (10:00)
--- NOTE | 2020-07-12 11:59 | PN ---
Progress Note (short form) - Note Progress Note: Chief Complaint: sob, cough s: no cp palps dizzy edema Current Medications Generic Name Dose Route Start Last Admin Trade Name Freq PRN Reason Stop Dose Admin Acetaminophen 650 mg 07/01/20 15:46 07/11/20 14:33 Tylenol - PO 650 mg Q6H PRN Administration PAIN LEVEL 6-10 Apixaban 5 mg 07/01/20 10:00 07/12/20 09:12 Eliquis - PO 5 mg BID NICOLE Administration Ascorbic Acid 500 mg 07/01/20 10:00 07/12/20 09:11 Vitamin C - PO 500 mg DAILY NICOLE Administration Benzocaine/Menthol 1 each 07/09/20 06:46 07/12/20 06:23 Cepacol Lozenge - MM 1 each PRN PRN Administration SORE THROAT Budesonide/Formoterol Fumarate 1 puff 07/01/20 10:00 07/12/20 09:13 Symbicort 80/4.5mcg - IH 1 puff BID NICOLE Administration Escitalopram Oxalate 20 mg 07/01/20 10:00 07/12/20 09:11 Lexapro - PO 20 mg DAILY NICOLE Administration Ferrous Sulfate 325 mg 07/01/20 10:00 07/12/20 09:12 Feosol - PO 325 mg DAILY NICOLE Administration Furosemide 40 mg 07/12/20 14:00 Lasix - PO BID@0600,1400 [facility] Guaifenesin 10 ml 07/05/20 05:59 07/11/20 01:41 Robitussin - PO 10 ml Q6H PRN Administration COUGH Levothyroxine Sodium 50 mcg 07/01/20 10:00 07/12/20 06:23 Synthroid - PO 50 mcg DAILY@0700 [facility] Administration Lidocaine 1 patch 07/01/20 11:15 07/12/20 09:12 Lidoderm Patch - TP 1 patch DAILY [facility] Administration Losartan Potassium 25 mg 07/03/20 10:00 07/12/20 09:11 Cozaar - PO 25 mg DAILY [facility] Administration Metoprolol Succinate 50 mg 07/01/20 10:00 07/12/20 09:12 Toprol Xl - PO 50 mg DAILY NICOLE Administration Miscellaneous 1 each 07/01/20 22:00 07/11/20 21:35 Lidoderm Patch Removal MC Not Given DAILY@2200 [facility] Multivitamins/Minerals/Vitamin C 1 tab 07/01/20 10:00 07/12/20 09:12 Tab-A-Vit - PO 1 tab DAILY NICOLE Administration Nystatin 1 applic 07/05/20 12:30 07/12/20 09:13 Mycostatin Cream - TP 1 applic BID NICOLE Administration Pantoprazole Sodium 40 mg 07/01/20 10:00 07/12/20 09:11 Protonix - PO 40 mg DAILY NICOLE Administration Prednisone 30 mg 07/11/20 11:45 07/12/20 09:12 Deltasone - PO 30 mg DAILY NICOLE Administration Pregabalin 150 mg 07/01/20 10:00 07/12/20 09:10 Lyrica - PO 150 mg BID NICOLE Administration Rosuvastatin Calcium 40 mg 07/02/20 21:27 07/11/20 21:35 Crestor - PO 40 mg HS NICOLE Administration Sodium Chloride 2 spray 07/06/20 07:40 07/11/20 09:23 [place] Nasal [place] - NS 2 sprays BID PRN Administration NASAL CONGESTION Sodium Chloride 3 ml 07/11/20 15:43 Normal Saline For Inhalation - IH Q6H PRN COUGH Vital Signs Period Temp Pulse Resp BP Sys/Bocanegra Pulse Ox Last 24 Hr 97.8 F-08334 F 79-106 18-18 86-122/43-68 97-98 Constitutional: Yes: No Distress, Calm Eyes: Yes: Conjunctiva Clear Cardiovascular: Yes: Regular Rate and Rhythm Respiratory: Yes: bl mild wheeze , nl eff Gastrointestinal: Yes: Soft, Abdomen, Obese Edema: no Peripheral Pulses WNL: Yes Neurological: Yes: Alert, Oriented no jaundice diaphoresis tele: sr echo 02/2020: Moderate AR, normal biV fx echo 06/2020 nl LV function, LA mildly dilated, mild MAC, mild MR, mild aortic sclerosis, mild AR IMP: PAF Acute on chronic diastolic CHF NSVT AR LE cellulitis HTN HLD Asthma REC: PAF: -stable, cont Eliquis and Toprol Acute on chronic diastolic CHF: -unclear precipitant, possibly infection/cellulitis -no signs acs -nl LV function on echo here -cxr clear, symptoms improved - change to PO lasix this afternoon -dobutamine nuclear stress showed a partially reversible anteroapical perfusion defect. 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 Stress test findings d/w Dr Vargas at [facility]. Current perfusion defect is similar to results there in OCT 2019 (she additionally had a lateral wall defect on that exam) and underwent cath showing non-obstructive CAD. hence do not suspect obstructive CAD at this time--cont med mgmt NSVT: -nl EF on echo -Keep K+ and Mg2- >4 and 2 respectively LE cellulitis: improving -as per primary team HTN: -stable HLD: -stable, outpatient f/u Asthma: -has wheezing and productive cough, plans per pulm/primary, on prednisone taper stable for dc from cardiac perspective
--- NOTE | 2020-07-12 12:29 | PN ---
Progress Note, Physician - Current Medication List Current Medications: Active Medications Acetaminophen (Tylenol -) 650 mg PO Q6H PRN PRN Reason: PAIN LEVEL 6-10 Last Admin: 07/11/20 14:33 Dose: 650 mg Documented by: Apixaban (Eliquis -) 5 mg PO BID [facility] Last Admin: 07/12/20 09:12 Dose: 5 mg Documented by: Ascorbic Acid (Vitamin C -) 500 mg PO DAILY [facility] Last Admin: 07/12/20 09:11 Dose: 500 mg Documented by: Benzocaine/Menthol (Cepacol Lozenge -) 1 each MM PRN PRN PRN Reason: SORE THROAT Last Admin: 07/12/20 06:23 Dose: 1 each Documented by: Budesonide/Formoterol Fumarate (Symbicort 80/4.5mcg -) 1 puff IH BID [facility] Last Admin: 07/12/20 09:13 Dose: 1 puff Documented by: Escitalopram Oxalate (Lexapro -) 20 mg PO DAILY [facility] Last Admin: 07/12/20 09:11 Dose: 20 mg Documented by: Ferrous Sulfate (Feosol -) 325 mg PO DAILY [facility] Last Admin: 07/12/20 09:12 Dose: 325 mg Documented by: Furosemide (Lasix -) 40 mg PO BID@0600,1400 [facility] Guaifenesin (Robitussin -) 10 ml PO Q6H PRN PRN Reason: COUGH Last Admin: 07/11/20 01:41 Dose: 10 ml Documented by: Levothyroxine Sodium (Synthroid -) 50 mcg PO DAILY@0700 [facility] Last Admin: 07/12/20 06:23 Dose: 50 mcg Documented by: Lidocaine (Lidoderm Patch -) 1 patch TP DAILY [facility] Last Admin: 07/12/20 09:12 Dose: 1 patch Documented by: Losartan Potassium (Cozaar -) 25 mg PO DAILY [facility] Last Admin: 07/12/20 09:11 Dose: 25 mg Documented by: Metoprolol Succinate (Toprol Xl -) 50 mg PO DAILY [facility] Last Admin: 07/12/20 09:12 Dose: 50 mg Documented by: Miscellaneous (Lidoderm Patch Removal) 1 each MC DAILY@2200 [facility] Last Admin: 07/11/20 21:35 Dose: Not Given Documented by: Multivitamins/Minerals/Vitamin C (Tab-A-Vit -) 1 tab PO DAILY [facility] Last Admin: 07/12/20 09:12 Dose: 1 tab Documented by: Nystatin (Mycostatin Cream -) 1 applic TP BID [facility] Last Admin: 07/12/20 09:13 Dose: 1 applic Documented by: Pantoprazole Sodium (Protonix -) 40 mg PO DAILY [facility] Last Admin: 07/12/20 09:11 Dose: 40 mg Documented by: Prednisone (Deltasone -) 30 mg PO DAILY [facility] Last Admin: 07/12/20 09:12 Dose: 30 mg Documented by: Pregabalin (Lyrica -) 150 mg PO BID [facility] Last Admin: 07/12/20 09:10 Dose: 150 mg Documented by: Rosuvastatin Calcium (Crestor -) 40 mg PO [facility] Last Admin: 07/11/20 21:35 Dose: 40 mg Documented by: Sodium Chloride ([place] Nasal [place] -) 2 spray NS BID PRN PRN Reason: NASAL CONGESTION Last Admin: 07/11/20 09:23 Dose: 2 sprays Documented by: Sodium Chloride (Normal Saline For Inhalation -) 3 ml IH Q6H PRN PRN Reason: COUGH - Objective Vital Signs: Vital Signs Temperature 97.8 F 07/12/20 06:00 Pulse Rate 106 H 07/12/20 06:00 Respiratory Rate 18 07/12/20 06:00 Blood Pressure 103/61 07/12/20 06:00 O2 Sat by Pulse Oximetry (%) 98 07/12/20 06:00 Labs: CBC, BMP 07/12/20 05:37 07/12/20 05:37 INR, PTT INR 1.36 (0.83-1.09) H 06/30/20 21:30
[2020-07-12] MEDS ORDERED: FUROSEMIDE 40 MG TABLET (FP) PO SCH (14:00)
[2020-07-12 14:29] VITALS: PULSE 96; TEMP 98.4
[2020-07-12 15:52] VITALS: BP 90/63
[2020-07-14] MEDS ORDERED: predniSONE 10 MG TABLET (UD) PO SCH ×2 (10:00)
== END 2020-07-12 17:04 | disposition home or self-care (01) | DRG 602 ==
LOC: JER 19:00 → JERBED 22:32 → J4S 07-01 06:16
PROVIDERS: ADMIT Internal Medicine; ATTEND Nurse Practitioner Acute Care
DX: L03.115 Cellulitis of right lower limb (principal); I50.33 Acute on chronic diastolic (congestive) heart failure; I47.1 Supraventricular tachycardia; J44.1 Chronic obstructive pulmonary disease with (acute) exacerbation; Z68.42 Body mass index [BMI] 45.0-49.9, adult; I11.0 Hypertensive heart disease with heart failure; G20 Parkinson's disease; E78.5 Hyperlipidemia, unspecified; I48.0 Paroxysmal atrial fibrillation; I35.1 Nonrheumatic aortic (valve) insufficiency; K21.9 Gastro-esophageal reflux disease without esophagitis; E03.9 Hypothyroidism, unspecified; I25.10 Atherosclerotic heart disease of native coronary artery without angina pectoris; E66.9 Obesity, unspecified
CPT/HCPCS: 36415; 71045-TC-FY; 78452-TC; 80048; 80053; 81003; 82550; 82728; 83735; 83880; 84100; 84443; 84484; 85025; 85045; 85610; 85730; 93005; 93010; 93017; 93306-TC; 93970-TC; 94640; 97116-GP; 97161-GP; 99285-25; A9502; C9803; U0003

== ENCOUNTER 2020-10-19 16:20 | Emergency (ER) | payer OTHER, MEDICARE ==
[2020-10-19 16:30] VITALS: BMI 52.0
[2020-10-19 19:47] LABS: BASO % 0.3 % (0-2.0); HEMATOCRIT 35.6 % (32.4-45.2); HEMOGLOBIN 11.9 GM/dL (10.7-15.3); LYMPH % 25.6 % (8-40); MCH 30.2 pg (25.7-33.7); MCHC 33.4 g/dl (32.0-36.0); MEAN CELL VOLUME 90.3 fl (80-96); MEAN PLT VOLUME 8.2 fl (7.5-11.1); MONO % 8.3 % (3.8-10.2); NEUT % 63.8 % (42.8-82.8); PLATELET COUNT 175 K/MM3 (134-434); RBC 3.94 M/mm3 (3.60-5.2); RDW 14.6 % (11.6-15.6); WHITE BLOOD COUNT 6.9 K/mm3 (4.0-10.0)
[2020-10-19 20:03] LABS: INR 1.26 (0.83-1.09); PROTHROMBIN TIME (PATIENT) 15.2 SEC (9.7-13.0)
[2020-10-19 20:07] LABS: POTASSIUM 4.7 mmol/L (3.5-5.1)
[2020-10-19 20:09] LABS: ALBUMIN 3.4 g/dl (3.4-5.0); BLOOD UREA NITROGEN 13.3 mg/dL (7-18); CALCIUM 8.9 mg/dL (8.5-10.1)
[2020-10-19 20:13] LABS: CREATININE 0.6 mg/dL (0.55-1.3)
[2020-10-19 20:14] LABS: BILIRUBIN,TOTAL 0.3 mg/dL (0.2-1); TOT PROT 6.7 g/dl (6.4-8.2)
[2020-10-19 20:25] LABS: EPI CELLS 27 /uL (0-25.1); HYALINE CASTS 2 /uL (0-3.1); PH,URINE 8.5 (5.0-8.0); URINE APPEARANCE TURBID; URINE BACTERIA 58 /uL (0-1359); URINE BILIRUBIN NEGATIVE (NEGATIVE); URINE COLOR RED; URINE GLUCOSE (UA) NEGATIVE (NEGATIVE); URINE KETONE NEGATIVE (NEGATIVE); URINE LEUK ESTERASE 2+ (NEGATIVE); URINE NITRITE NEGATIVE (NEGATIVE); URINE PROTEIN 1+ (NEGATIVE); URINE RBC 19136 /uL (0-23.9); URINE UROBILINOGEN 0.2 mg/dL (0.2-1.0); URINE WBC 372 /uL (0-25.8)
[2020-10-19 21:28] VITALS: BP 140/89; PULSE 89; TEMP 98.2
== END 2020-10-19 21:28 | disposition home or self-care (01) ==
LOC: JER 16:20
DX: N93.8 Other specified abnormal uterine and vaginal bleeding (principal)
CPT/HCPCS: 36415; 76830-TC; 80053; 81003; 83605; 85025; 85610; 87086; 87186; 99284-25

== ENCOUNTER 2021-06-22 12:47 | Inpatient (IN) | payer OTHER, MEDICARE ==
[2021-06-22] MEDS ORDERED: ACETAMINOPHEN 1000 MG/100 ML VIAL IVPB ONE (14:33)
[2021-06-22] MEDS ORDERED: LIDOCAINE 5% TOPICAL PATCH TP ONE (14:38)
[2021-06-22] MEDS ORDERED: ACETAMINOPHEN INJECTION 100 ML IVPB ONE (14:50)
[2021-06-22] MEDS ORDERED: LIDOCAINE 5% TOPICAL PATCH ONE (14:50)
[2021-06-22 15:09] LABS: EPI CELLS 4 /uL (0-25.1); HYALINE CASTS 0 /uL (0-3.1); URINE APPEARANCE CLEAR; URINE BACTERIA 139 /uL (0-1359); URINE BILIRUBIN NEGATIVE (NEGATIVE); URINE COLOR YELLOW; URINE GLUCOSE (UA) NEGATIVE (NEGATIVE); URINE KETONE NEGATIVE (NEGATIVE); URINE LEUK ESTERASE 3+ (NEGATIVE); URINE NITRITE NEGATIVE (NEGATIVE); URINE PROTEIN NEGATIVE (NEGATIVE); URINE RBC 847 /uL (0-23.9); URINE UROBILINOGEN 0.2 mg/dL (0.2-1.0); URINE WBC 341 /uL (0-25.8)
[2021-06-22 15:33] LABS: BASO % 0.4 % (0-2.0); EOS % 1.4 % (0-4.5); HEMOGLOBIN 11.4 GM/dL (10.7-15.3); LYMPH % 28.4 % (8-40); MCH 30.3 pg (25.7-33.7); MCHC 33.6 g/dl (32.0-36.0); MEAN CELL VOLUME 90.3 fl (80-96); MEAN PLT VOLUME 8.8 fl (7.5-11.1); MONO % 12.6 % (3.8-10.2); NEUT % 57.2 % (42.8-82.8); PLATELET COUNT 148 10^3/uL (134-434); RBC 3.77 M/mm3 (3.60-5.2); RDW 14.8 % (11.6-15.6); WHITE BLOOD COUNT 6.1 K/mm3 (4.0-10.0)
[2021-06-22 15:51] LABS: CHLORIDE 101 mmol/L (98-107); SODIUM 140 mmol/L (136-145)
[2021-06-22 15:53] LABS: CALCIUM 8.9 mg/dL (8.5-10.1)
[2021-06-22 15:54] LABS: ALBUMIN 3.2 g/dl (3.4-5.0); ANION GAP 7 MMOL/L (8-16); BLOOD UREA NITROGEN 20.8 mg/dL (7-18); CO2 32 mmol/L (21-32); GLUCOSE,RANDOM 88 mg/dL (74-106)
[2021-06-22 15:57] LABS: CREATININE 0.7 mg/dL (0.55-1.3); SGOT/AST 33 U/L (15-37); SGPT/ALT 28 U/L (13-61)
[2021-06-22 15:58] LABS: BILIRUBIN,TOTAL 0.5 mg/dL (0.2-1); TOT PROT 6.9 g/dl (6.4-8.2)
[2021-06-22 15:59] LABS: ALK PHOS 58 U/L (45-117)
[2021-06-22] MEDS ORDERED: CEFTRIAXONE 1,000 MG in DEXTROSE 5%-WATER - 50 ML IVPB ONE ×2 (17:58→19:15)
[2021-06-22] MEDS ORDERED: CEFTRIAXONE 1 GM/50 ML BAG ONE ×2 (18:58→19:22)
[2021-06-22] MEDS ORDERED: ALBUTEROL SO4 2.5/IPRATROPIUM 0.5 INH SOL 3 ML VIAL.NEB. NEB PRN (20:28)
[2021-06-22] MEDS ORDERED: ROSUVASTATIN CA 40 MG TABLET PO SCH (22:00)
[2021-06-22] MEDS ORDERED: LIDOCAINE PATCH REMOVAL MC ONE (22:00)
[2021-06-23] MEDS: PREGABALIN 100 MG CAPSULE PO SCH ×3 (00:08→21:51)
[2021-06-23] MEDS: ROSUVASTATIN CA 20 MG TABLET (FP) PO SCH ×2 (00:09→21:50)
[2021-06-23] MEDS: PRAMIPEXOLE DIHYDROCHLORIDE 0.25 MG TABLET PO SCH ×3 (00:09→21:51)
[2021-06-23] MEDS: APIXABAN 5 MG TABLET PO SCH ×3 (00:09→21:50)
[2021-06-23] MEDS ORDERED: FLU VACC QS2021-22(6MOS UP)/PF 60 MCG/0.5 ML SYRINGE IM ONE ×2 (04:15→07:30)
[2021-06-23] MEDS: LEVOTHYROXINE NA 50 MCG TABLET (FP) PO SCH (06:41)
[2021-06-23 06:51] LABS: BASO % 0.4 % (0-2.0); EOS % 2.5 % (0-4.5); HEMATOCRIT 32.8 % (32.4-45.2); HEMOGLOBIN 11.3 GM/dL (10.7-15.3); LYMPH % 29.2 % (8-40); MCH 31.4 pg (25.7-33.7); MCHC 34.5 g/dl (32.0-36.0); MEAN CELL VOLUME 91.1 fl (80-96); MEAN PLT VOLUME 9.2 fl (7.5-11.1); MONO % 11.7 % (3.8-10.2); NEUT % 56.2 % (42.8-82.8); PLATELET COUNT 139 10^3/uL (134-434); RDW 14.2 % (11.6-15.6); WHITE BLOOD COUNT 5.7 K/mm3 (4.0-10.0)
[2021-06-23 07:20] LABS: ALBUMIN 2.8 g/dl (3.4-5.0); BILIRUBIN,TOTAL 0.3 mg/dL (0.2-1); CALCIUM 8.1 mg/dL (8.5-10.1)
[2021-06-23 07:22] LABS: BLOOD UREA NITROGEN 22.9 mg/dL (7-18); MAGNESIUM 1.8 mg/dL (1.8-2.4)
[2021-06-23 07:24] LABS: CREATININE 0.8 mg/dL (0.55-1.3)
[2021-06-23] MEDS ORDERED: PT OWN MED DRAWER 7, Y5N ONE ×4 (09:08→21:26)
[2021-06-23] MEDS: FUROSEMIDE 40 MG TABLET (FP) PO SCH (09:28)
[2021-06-23] MEDS: DULoxetine HCL 30 MG CAPSULE.DR PO SCH (09:29)
[2021-06-23] MEDS: PANTOPRAZOLE 40 MG TABLET PO SCH (09:29)
[2021-06-23] MEDS ORDERED: LOSARTAN POTASSIUM 50 MG TABLET PO SCH (10:00)
[2021-06-23] MEDS: ACETAMINOPHEN 325 MG TABLET (FP) PO PRN (12:56)
[2021-06-23] MEDS ORDERED: CEFTRIAXONE 1 GM in DEXTROSE 5%-WATER - 50 ML IVPB SCH (19:30)
[2021-06-23] MEDS: BUDESONIDE/FORMETEROL FUMARATE 160/4.5 mcg INHALER IH SCH (21:52)
[2021-06-24] MEDS: LEVOTHYROXINE NA 50 MCG TABLET (FP) PO SCH (06:08)
[2021-06-24 07:19] LABS: CALCIUM 8.2 mg/dL (8.5-10.1)
[2021-06-24 07:21] LABS: BLOOD UREA NITROGEN 22.4 mg/dL (7-18); MAGNESIUM 1.6 mg/dL (1.8-2.4)
[2021-06-24 07:23] LABS: CREATININE 0.8 mg/dL (0.55-1.3); PHOSPHOROUS 3.4 mg/dL (2.5-4.9)
[2021-06-24 07:45] LABS: BASO % 0.4 % (0-2.0); EOS % 2.4 % (0-4.5); HEMATOCRIT 33.1 % (32.4-45.2); HEMOGLOBIN 11.4 GM/dL (10.7-15.3); LYMPH % 29.9 % (8-40); MCH 31.2 pg (25.7-33.7); MCHC 34.5 g/dl (32.0-36.0); MEAN CELL VOLUME 90.5 fl (80-96); MEAN PLT VOLUME 8.9 fl (7.5-11.1); MONO % 10.6 % (3.8-10.2); NEUT % 56.7 % (42.8-82.8); PLATELET COUNT 137 10^3/uL (134-434); RBC 3.66 M/mm3 (3.60-5.2); RDW 14.4 % (11.6-15.6); WHITE BLOOD COUNT 5.4 K/mm3 (4.0-10.0)
[2021-06-24] MEDS: APIXABAN 5 MG TABLET PO SCH ×2 (10:02→21:27)
[2021-06-24] MEDS: FUROSEMIDE 40 MG TABLET (FP) PO SCH (10:02)
[2021-06-24] MEDS: PANTOPRAZOLE 40 MG TABLET PO SCH (10:02)
[2021-06-24] MEDS: DULoxetine HCL 30 MG CAPSULE.DR PO SCH (10:02)
[2021-06-24] MEDS: PREGABALIN 100 MG CAPSULE PO SCH ×2 (10:02→21:28)
[2021-06-24] MEDS: BUDESONIDE/FORMETEROL FUMARATE 160/4.5 mcg INHALER IH SCH ×2 (10:03→21:27)
[2021-06-24] MEDS ORDERED: PT OWN MED DRAWER 7, Y5N ONE (10:05)
[2021-06-24] MEDS: PRAMIPEXOLE DIHYDROCHLORIDE 0.25 MG TABLET PO SCH ×2 (12:10→21:28)
[2021-06-24] MEDS: ACETAMINOPHEN 325 MG TABLET (FP) PO PRN (12:11)
[2021-06-24] MEDS: TIOTROPIUM BROMIDE 2.5 MCG (SPIRIVA) RESPIMAT INHALER IH SCH (15:44)
[2021-06-24] MEDS ORDERED: cefTRIAXone SODIUM 1 GM VIAL ONE (19:28)
[2021-06-24] MEDS ORDERED: DEXTROSE 5%-WATER - 50 ML IVPB ONE (19:29)
[2021-06-24] MEDS: CEFTRIAXONE 1 GM in DEXTROSE 5%-WATER - 50 ML IVPB SCH (19:31)
[2021-06-24] MEDS: ROSUVASTATIN CA 20 MG TABLET (FP) PO SCH (21:27)
[2021-06-25] MEDS: LEVOTHYROXINE NA 50 MCG TABLET (FP) PO SCH (06:03)
[2021-06-25 07:15] LABS: BASO % 0.4 % (0-2.0); EOS % 2.6 % (0-4.5); HEMATOCRIT 33.6 % (32.4-45.2); HEMOGLOBIN 11.5 GM/dL (10.7-15.3); LYMPH % 27.5 % (8-40); MCH 31.2 pg (25.7-33.7); MCHC 34.3 g/dl (32.0-36.0); MEAN CELL VOLUME 90.8 fl (80-96); MEAN PLT VOLUME 9.2 fl (7.5-11.1); MONO % 10.3 % (3.8-10.2); NEUT % 59.2 % (42.8-82.8); PLATELET COUNT 148 10^3/uL (134-434); RDW 13.9 % (11.6-15.6)
[2021-06-25 07:24] LABS: ALBUMIN 2.7 g/dl (3.4-5.0); BLOOD UREA NITROGEN 20.7 mg/dL (7-18); CALCIUM 7.9 mg/dL (8.5-10.1); MAGNESIUM 1.5 mg/dL (1.8-2.4)
[2021-06-25 07:27] LABS: CREATININE 0.7 mg/dL (0.55-1.3)
[2021-06-25 07:29] LABS: BILIRUBIN,TOTAL 0.3 mg/dL (0.2-1); PHOSPHOROUS 3.2 mg/dL (2.5-4.9); TOT PROT 6.2 g/dl (6.4-8.2)
[2021-06-25] MEDS: APIXABAN 5 MG TABLET PO SCH ×2 (09:48→22:28)
[2021-06-25] MEDS: FUROSEMIDE 40 MG TABLET (FP) PO SCH (09:48)
[2021-06-25] MEDS: DULoxetine HCL 30 MG CAPSULE.DR PO SCH (09:48)
[2021-06-25] MEDS: BUDESONIDE/FORMETEROL FUMARATE 160/4.5 mcg INHALER IH SCH ×2 (09:49→22:29)
[2021-06-25] MEDS: PANTOPRAZOLE 40 MG TABLET PO SCH (09:49)
[2021-06-25] MEDS: TIOTROPIUM BROMIDE 2.5 MCG (SPIRIVA) RESPIMAT INHALER IH SCH (09:49)
[2021-06-25] MEDS: PREGABALIN 100 MG CAPSULE PO SCH ×2 (09:49→22:28)
[2021-06-25] MEDS: PRAMIPEXOLE DIHYDROCHLORIDE 0.25 MG TABLET PO SCH ×2 (09:49→22:28)
[2021-06-25] MEDS ORDERED: ACETAMINOPHEN/CAFFEINE/BUTALBITAL 1 TAB PO PRN (10:01)
[2021-06-25] MEDS ORDERED: cefTRIAXone SODIUM 1 GM VIAL ONE (10:01)
[2021-06-25] MEDS ORDERED: DEXTROSE 5%-WATER - 50 ML IVPB ONE (10:01)
[2021-06-25] MEDS: CEFTRIAXONE 1 GM in DEXTROSE 5%-WATER - 50 ML IVPB SCH (10:12)
[2021-06-25] MEDS ORDERED: MAGNESIUM SULF 50% (8.12 MEQ/2 ML-1 GM VIAL) IVPB ONE (12:29)
[2021-06-25] MEDS: ROSUVASTATIN CA 20 MG TABLET (FP) PO SCH (22:28)
[2021-06-26] MEDS: LEVOTHYROXINE NA 50 MCG TABLET (FP) PO SCH (06:34)
[2021-06-26 06:43] LABS: BASO % 0.3 % (0-2.0); EOS % 2.1 % (0-4.5); HEMATOCRIT 34.1 % (32.4-45.2); HEMOGLOBIN 11.8 GM/dL (10.7-15.3); LYMPH % 24.7 % (8-40); MCH 31.1 pg (25.7-33.7); MCHC 34.6 g/dl (32.0-36.0); NEUT % 60.9 % (42.8-82.8); PLATELET COUNT 153 10^3/uL (134-434); RBC 3.79 M/mm3 (3.60-5.2); RDW 14.4 % (11.6-15.6); WHITE BLOOD COUNT 6.6 K/mm3 (4.0-10.0)
[2021-06-26 07:00] LABS: CALCIUM 8.3 mg/dL (8.5-10.1)
[2021-06-26 07:01] LABS: BLOOD UREA NITROGEN 17.6 mg/dL (7-18); MAGNESIUM 2.1 mg/dL (1.8-2.4)
[2021-06-26 07:05] LABS: CREATININE 0.7 mg/dL (0.55-1.3)
[2021-06-26 07:06] LABS: BILIRUBIN,TOTAL 0.5 mg/dL (0.2-1); TOT PROT 6.5 g/dl (6.4-8.2)
[2021-06-26] MEDS ORDERED: DEXTROSE 5%-WATER - 50 ML IVPB ONE (09:00)
[2021-06-26] MEDS ORDERED: cefTRIAXone SODIUM 1 GM VIAL ONE (09:00)
[2021-06-26] MEDS ORDERED: PT OWN MED DRAWER 7, Y5N ONE (09:00)
[2021-06-26] MEDS: APIXABAN 5 MG TABLET PO SCH ×2 (09:02→21:35)
[2021-06-26] MEDS: DULoxetine HCL 30 MG CAPSULE.DR PO SCH (09:02)
[2021-06-26] MEDS: FUROSEMIDE 40 MG TABLET (FP) PO SCH (09:02)
[2021-06-26] MEDS: PANTOPRAZOLE 40 MG TABLET PO SCH (09:02)
[2021-06-26] MEDS: PREGABALIN 100 MG CAPSULE PO SCH ×2 (09:02→21:35)
[2021-06-26] MEDS: CEFTRIAXONE 1 GM in DEXTROSE 5%-WATER - 50 ML IVPB SCH (09:03)
[2021-06-26] MEDS: PRAMIPEXOLE DIHYDROCHLORIDE 0.25 MG TABLET PO SCH ×2 (09:03→22:21)
[2021-06-26] MEDS: BUDESONIDE/FORMETEROL FUMARATE 160/4.5 mcg INHALER IH SCH ×2 (10:10→21:35)
[2021-06-26] MEDS: TIOTROPIUM BROMIDE 2.5 MCG (SPIRIVA) RESPIMAT INHALER IH SCH (10:10)
[2021-06-26] MEDS ORDERED: SODIUM CHLORIDE 250 ML IV STA ×2 (15:57→16:50)
[2021-06-26] MEDS: ACETAMINOPHEN 325 MG TABLET (FP) PO PRN (17:51)
[2021-06-26] MEDS: ROSUVASTATIN CA 20 MG TABLET (FP) PO SCH (21:35)
[2021-06-26] MEDS: metoPROLOL SUCCINATE 25 MG TAB.SR.24H (FP) PO SCH (21:35)
[2021-06-27 06:44] LABS: HEMATOCRIT 34.4 % (32.4-45.2); HEMOGLOBIN 11.7 GM/dL (10.7-15.3); MCH 30.7 pg (25.7-33.7); MCHC 33.9 g/dl (32.0-36.0); MEAN CELL VOLUME 90.6 fl (80-96); MEAN PLT VOLUME 9.3 fl (7.5-11.1); PLATELET COUNT 152 10^3/uL (134-434); RDW 14.4 % (11.6-15.6); WHITE BLOOD COUNT 8.4 K/mm3 (4.0-10.0)
[2021-06-27] MEDS: LEVOTHYROXINE NA 50 MCG TABLET (FP) PO SCH (06:55)
[2021-06-27 07:02] LABS: CALCIUM 8.4 mg/dL (8.5-10.1)
[2021-06-27 07:03] LABS: ALBUMIN 2.8 g/dl (3.4-5.0); BLOOD UREA NITROGEN 14.1 mg/dL (7-18); MAGNESIUM 2.2 mg/dL (1.8-2.4)
[2021-06-27 07:06] LABS: CREATININE 0.6 mg/dL (0.55-1.3); PHOSPHOROUS 2.5 mg/dL (2.5-4.9)
[2021-06-27 07:08] LABS: BILIRUBIN,TOTAL 0.6 mg/dL (0.2-1); TOT PROT 6.5 g/dl (6.4-8.2)
[2021-06-27] MEDS ORDERED: DEXTROSE 5%-WATER - 50 ML IVPB ONE (09:35)
[2021-06-27] MEDS ORDERED: cefTRIAXone SODIUM 1 GM VIAL ONE (09:35)
[2021-06-27] MEDS ORDERED: PT OWN MED DRAWER 7, Y5N ONE ×2 (09:37→14:03)
[2021-06-27] MEDS: PANTOPRAZOLE 40 MG TABLET PO SCH (09:38)
[2021-06-27] MEDS: CEFTRIAXONE 1 GM in DEXTROSE 5%-WATER - 50 ML IVPB SCH (09:38)
[2021-06-27] MEDS: DULoxetine HCL 30 MG CAPSULE.DR PO SCH (09:38)
[2021-06-27] MEDS: PREGABALIN 100 MG CAPSULE PO SCH ×2 (09:38→21:24)
[2021-06-27] MEDS: BUDESONIDE/FORMETEROL FUMARATE 160/4.5 mcg INHALER IH SCH ×2 (09:38→21:24)
[2021-06-27] MEDS: TIOTROPIUM BROMIDE 2.5 MCG (SPIRIVA) RESPIMAT INHALER IH SCH (09:38)
[2021-06-27] MEDS: PRAMIPEXOLE DIHYDROCHLORIDE 0.25 MG TABLET PO SCH ×2 (09:38→21:25)
[2021-06-27] MEDS: APIXABAN 5 MG TABLET PO SCH ×2 (09:38→21:24)
[2021-06-27] MEDS: FUROSEMIDE 40 MG TABLET (FP) PO SCH (09:41)
[2021-06-27] MEDS ORDERED: CELECOXIB 200 MG CAPSULE PO ONE (13:00)
[2021-06-27] MEDS: ALBUTEROL SO4 0.083% IH SOL 2.5 MG/3 ML VIAL.NEB. NEB SCH (20:53)
[2021-06-27] MEDS: ROSUVASTATIN CA 20 MG TABLET (FP) PO SCH (21:24)
[2021-06-27] MEDS: metoPROLOL SUCCINATE 25 MG TAB.SR.24H (FP) PO SCH (21:24)
[2021-06-28] MEDS: LEVOTHYROXINE NA 50 MCG TABLET (FP) PO SCH (05:59)
[2021-06-28 07:07] LABS: BASO % 0.3 % (0-2.0); EOS % 1.5 % (0-4.5); HEMATOCRIT 33.9 % (32.4-45.2); HEMOGLOBIN 11.4 GM/dL (10.7-15.3); LYMPH % 20.1 % (8-40); MCH 30.6 pg (25.7-33.7); MCHC 33.7 g/dl (32.0-36.0); MEAN PLT VOLUME 8.4 fl (7.5-11.1); MONO % 9.5 % (3.8-10.2); NEUT % 68.6 % (42.8-82.8); PLATELET COUNT 151 10^3/uL (134-434); RBC 3.73 M/mm3 (3.60-5.2); WHITE BLOOD COUNT 6.9 K/mm3 (4.0-10.0)
[2021-06-28 07:24] LABS: ALBUMIN 2.4 g/dl (3.4-5.0); BLOOD UREA NITROGEN 19.1 mg/dL (7-18); CALCIUM 8.5 mg/dL (8.5-10.1); MAGNESIUM 1.8 mg/dL (1.8-2.4)
[2021-06-28 07:27] LABS: CREATININE 0.5 mg/dL (0.55-1.3)
[2021-06-28 07:28] LABS: PHOSPHOROUS 2.5 mg/dL (2.5-4.9)
[2021-06-28 07:29] LABS: BILIRUBIN,TOTAL 0.4 mg/dL (0.2-1); TOT PROT 6.2 g/dl (6.4-8.2)
[2021-06-28] MEDS: ALBUTEROL SO4 0.083% IH SOL 2.5 MG/3 ML VIAL.NEB. NEB SCH ×3 (07:45→19:55)
[2021-06-28] MEDS ORDERED: cefTRIAXone SODIUM 1 GM VIAL ONE (09:10)
[2021-06-28] MEDS ORDERED: PT OWN MED DRAWER 7, Y5N ONE ×3 (09:10→21:34)
[2021-06-28] MEDS ORDERED: DEXTROSE 5%-WATER - 50 ML IVPB ONE (09:11)
[2021-06-28] MEDS: FUROSEMIDE 40 MG TABLET (FP) PO SCH (09:12)
[2021-06-28] MEDS: PANTOPRAZOLE 40 MG TABLET PO SCH (09:12)
[2021-06-28] MEDS: PREGABALIN 100 MG CAPSULE PO SCH ×2 (09:12→21:52)
[2021-06-28] MEDS: CEFTRIAXONE 1 GM in DEXTROSE 5%-WATER - 50 ML IVPB SCH (09:12)
[2021-06-28] MEDS: PRAMIPEXOLE DIHYDROCHLORIDE 0.25 MG TABLET PO SCH ×2 (09:12→21:53)
[2021-06-28] MEDS: DULoxetine HCL 30 MG CAPSULE.DR PO SCH (09:12)
[2021-06-28] MEDS: APIXABAN 5 MG TABLET PO SCH ×2 (09:12→21:52)
[2021-06-28] MEDS: TIOTROPIUM BROMIDE 2.5 MCG (SPIRIVA) RESPIMAT INHALER IH SCH (09:12)
[2021-06-28] MEDS: BUDESONIDE/FORMETEROL FUMARATE 160/4.5 mcg INHALER IH SCH ×2 (09:12→21:53)
[2021-06-28] MEDS ORDERED: CELECOXIB 200 MG CAPSULE PO ONE (09:36)
[2021-06-28 13:38] VITALS: BMI 36.9
[2021-06-28] MEDS: ROSUVASTATIN CA 20 MG TABLET (FP) PO SCH (21:52)
[2021-06-28] MEDS: metoPROLOL SUCCINATE 25 MG TAB.SR.24H (FP) PO SCH (21:53)
[2021-06-28] MEDS: ACETAMINOPHEN 325 MG TABLET (FP) PO PRN (21:54)
[2021-06-29] MEDS ORDERED: PT OWN MED DRAWER 7, Y5N ONE (05:43)
[2021-06-29] MEDS: LEVOTHYROXINE NA 50 MCG TABLET (FP) PO SCH (06:23)
[2021-06-29 07:23] VITALS: PULSE 57; TEMP 98
[2021-06-29] MEDS: ALBUTEROL SO4 0.083% IH SOL 2.5 MG/3 ML VIAL.NEB. NEB SCH ×2 (08:45→13:33)
[2021-06-29] MEDS: DULoxetine HCL 30 MG CAPSULE.DR PO SCH (09:31)
[2021-06-29] MEDS: PREGABALIN 100 MG CAPSULE PO SCH (09:31)
[2021-06-29] MEDS: PANTOPRAZOLE 40 MG TABLET PO SCH (09:32)
[2021-06-29] MEDS: PRAMIPEXOLE DIHYDROCHLORIDE 0.25 MG TABLET PO SCH (09:32)
[2021-06-29] MEDS: FUROSEMIDE 40 MG TABLET (FP) PO SCH (09:32)
[2021-06-29] MEDS: APIXABAN 5 MG TABLET PO SCH (09:32)
[2021-06-29] MEDS: BUDESONIDE/FORMETEROL FUMARATE 160/4.5 mcg INHALER IH SCH (09:34)
[2021-06-29] MEDS: TIOTROPIUM BROMIDE 2.5 MCG (SPIRIVA) RESPIMAT INHALER IH SCH (09:36)
[2021-06-29 12:16] VITALS: BP 125/66
== END 2021-06-29 14:15 | disposition home or self-care (01) | DRG 690 ==
LOC: JER 12:47 → OBSVTOIN 17:59 → JERBED 17:59 → J2W 23:14
PROVIDERS: ADMIT Internal Medicine; ATTEND Student in an Organized Health Care Education/Training Program
DX: N39.0 Urinary tract infection, site not specified (principal); J96.11 Chronic respiratory failure with hypoxia; I50.30 Unspecified diastolic (congestive) heart failure; Z68.36 Body mass index [BMI] 36.0-36.9, adult; I11.0 Hypertensive heart disease with heart failure; I48.91 Unspecified atrial fibrillation; K21.9 Gastro-esophageal reflux disease without esophagitis; J45.909 Unspecified asthma, uncomplicated; I25.10 Atherosclerotic heart disease of native coronary artery without angina pectoris; E03.9 Hypothyroidism, unspecified; E78.5 Hyperlipidemia, unspecified; J44.9 Chronic obstructive pulmonary disease, unspecified; M48.00 Spinal stenosis, site unspecified; Z99.81 Dependence on supplemental oxygen; B96.4 Proteus (mirabilis) (morganii) as the cause of diseases classified elsewhere; E66.9 Obesity, unspecified
CPT/HCPCS: 36415; 70450-TC; 70486-TC; 72125-TC; 73030-TC-LT-FY; 73030-TC-RT-FY; 73110-TC-LT-FY; 73110-TC-RT-FY; 73130-TC-LT-FY; 73130-TC-RT-FY; 73560-TC-LT-FY; 73562-TC-RT-FY; 80048; 80053; 80061; 81003; 82550; 82553; 82607; 82962; 83735; 84100; 84443; 84484; 85025; 85027; 87086; 87186; 90686; 93005; 93010; 93306-TC; 93880-TC; 94640; 97116-GP; 97162-GP; 99285-25; C9803; G0008; J0131; U0003; U0005

== ENCOUNTER 2022-04-01 16:43 | Inpatient (IN) | payer OTHER, MEDICARE ==
[2022-04-01] MEDS ORDERED: ACETAMINOPHEN 325 MG TABLET (FP) PO ONE (17:42)
[2022-04-01] MEDS ORDERED: ACETAMINOPHEN 325 MG TABLET (FP) ONE (18:46)
[2022-04-01 22:00] LABS: INR 1.31 (0.83-1.09); PROTHROMBIN TIME (PATIENT) 15.1 SEC (9.7-13.0)
[2022-04-01 22:03] LABS: ACTIVATED PTT 18.5 SECONDS (25.2-36.5)
[2022-04-01 22:06] LABS: BASO % 1.5 % (0-2.0); EOS % 1.9 % (0-4.5); HEMATOCRIT 36.3 % (32.4-45.2); HEMOGLOBIN 11.7 GM/dL (10.7-15.3); LYMPH % 28.4 % (8-40); MCH 30.2 pg (25.7-33.7); MCHC 32.3 g/dl (32.0-36.0); MEAN CELL VOLUME 93.7 fl (80-96); MEAN PLT VOLUME 10.1 fl (7.5-11.1); MONO % 7.3 % (3.8-10.2); NEUT % 60.9 % (42.8-82.8); PLATELET COUNT 154 10^3/uL (134-434); RBC 3.88 M/mm3 (3.60-5.2)
[2022-04-01 22:14] LABS: CALCIUM 8.8 mg/dL (8.5-10.1)
[2022-04-01 22:15] LABS: ALBUMIN 3.2 g/dl (3.4-5.0); BLOOD UREA NITROGEN 14.6 mg/dL (7-18)
[2022-04-01 22:18] LABS: CREATININE 0.7 mg/dL (0.55-1.3)
[2022-04-01 22:19] LABS: BILIRUBIN,TOTAL 0.6 mg/dL (0.2-1); TOT PROT 6.4 g/dl (6.4-8.2)
[2022-04-01] MEDS ORDERED: KETOROLAC TROMETHAMINE 15 MG/ML VIAL IVPUSH PRN (23:25)
[2022-04-01] MEDS ORDERED: ACETAMINOPHEN 325 MG TABLET (FP) PO PRN (23:25)
[2022-04-01] MEDS ORDERED: LIDOCAINE 5% TOPICAL PATCH TP ONE (23:26)
[2022-04-01] MEDS ORDERED: LIDOCAINE 5% TOPICAL PATCH ONE (23:45)
[2022-04-02] MEDS ORDERED: ALBUTEROL SO4 2.5/IPRATROPIUM 0.5 INH SOL 3 ML VIAL.NEB. NEB PRN (01:09)
[2022-04-02] MEDS ORDERED: ACETAMINOPHEN 325 MG TABLET (FP) PO PRN (01:09)
[2022-04-02] MEDS ORDERED: LEVOTHYROXINE NA 50 MCG TABLET (FP) ONE (05:08)
[2022-04-02] MEDS ORDERED: HEPARIN NA (PORCINE) 5,000 UNITS/ML 1ML VIAL ONE (05:09)
[2022-04-02] MEDS: LEVOTHYROXINE NA 50 MCG TABLET (FP) PO SCH (05:18)
[2022-04-02] MEDS ORDERED: HEPARIN NA (PORCINE) 5,000 UNITS/ML 1ML VIAL SQ SCH (06:00)
[2022-04-02 07:10] LABS: HEMATOCRIT 33.7 % (32.4-45.2); HEMOGLOBIN 11.3 GM/dL (10.7-15.3); MCH 30.7 pg (25.7-33.7); MCHC 33.6 g/dl (32.0-36.0); MEAN CELL VOLUME 91.5 fl (80-96); MEAN PLT VOLUME 8.8 fl (7.5-11.1); PLATELET COUNT 130 10^3/uL (134-434); RBC 3.68 M/mm3 (3.60-5.2); RDW 13.7 % (11.6-15.6); WHITE BLOOD COUNT 5.4 K/mm3 (4.0-10.0)
[2022-04-02 07:23] LABS: ALBUMIN 3.1 g/dl (3.4-5.0); BLOOD UREA NITROGEN 13.7 mg/dL (7-18); CALCIUM 8.5 mg/dL (8.5-10.1); MAGNESIUM 2.1 mg/dL (1.8-2.4)
[2022-04-02 07:26] LABS: CREATININE 0.6 mg/dL (0.55-1.3); PHOSPHOROUS 3.6 mg/dL (2.5-4.9)
[2022-04-02 07:28] LABS: BILIRUBIN,TOTAL 0.7 mg/dL (0.2-1)
[2022-04-02] MEDS ORDERED: APIXABAN 5 MG TABLET PO SCH (10:00)
[2022-04-02] MEDS ORDERED: LIDOCAINE PATCH REMOVAL MC ONE (10:00)
[2022-04-02] MEDS ORDERED: TIOTROPIUM BROMIDE 2.5 MCG (SPIRIVA) RESPIMAT INHALER IH SCH (10:00)
[2022-04-02] MEDS: ALBUTEROL SO4 0.083% IH SOL 2.5 MG/3 ML VIAL.NEB. NEB SCH ×3 (10:44→20:49)
[2022-04-02] MEDS: FUROSEMIDE 40 MG TABLET (FP) PO SCH (11:00)
[2022-04-02] MEDS: LOSARTAN POTASSIUM 50 MG TABLET PO SCH (11:00)
[2022-04-02] MEDS: TIOTROPIUM BROMIDE 2.5 MCG (SPIRIVA) RESPIMAT INHALER IH SCH (18:42)
[2022-04-02 20:40] VITALS: BMI 37.3
[2022-04-02] MEDS ORDERED: ROSUVASTATIN CA 40 MG TABLET PO SCH (22:00)
[2022-04-02] MEDS ORDERED: ROSUVASTATIN CA 20 MG TABLET PO SCH (22:00)
[2022-04-02] MEDS: PREGABALIN 75 MG CAPSULE PO SCH (23:43)
[2022-04-02] MEDS: NYSTATIN POWDER 100,000 UNITS/GM - 15 GM TOPICAL POWDER TP SCH (23:43)
[2022-04-02] MEDS: APIXABAN 5 MG TABLET PO SCH (23:43)
[2022-04-02] MEDS: PRAMIPEXOLE DIHYDROCHLORIDE 0.25 MG TABLET PO SCH (23:43)
[2022-04-03] MEDS: LEVOTHYROXINE NA 50 MCG TABLET (FP) PO SCH (06:45)
[2022-04-03] MEDS: ALBUTEROL SO4 0.083% IH SOL 2.5 MG/3 ML VIAL.NEB. NEB SCH ×2 (08:00→14:15)
[2022-04-03] MEDS ORDERED: DULoxetine HCL 30 MG CAPSULE.DR PO SCH (10:00)
[2022-04-03] MEDS: FUROSEMIDE 40 MG TABLET (FP) PO SCH (10:58)
[2022-04-03] MEDS: PREGABALIN 75 MG CAPSULE PO SCH (10:58)
[2022-04-03] MEDS: APIXABAN 5 MG TABLET PO SCH (10:58)
[2022-04-03] MEDS: LOSARTAN POTASSIUM 50 MG TABLET PO SCH (10:58)
[2022-04-03] MEDS: PRAMIPEXOLE DIHYDROCHLORIDE 0.25 MG TABLET PO SCH (10:58)
[2022-04-03] MEDS: NYSTATIN POWDER 100,000 UNITS/GM - 15 GM TOPICAL POWDER TP SCH (10:59)
[2022-04-03] MEDS: TIOTROPIUM BROMIDE 2.5 MCG (SPIRIVA) RESPIMAT INHALER IH SCH (10:59)
[2022-04-03 14:03] VITALS: RESP 18
[2022-04-03 14:06] VITALS: BP 108/44; PULSE 73; TEMP 98.7
== END 2022-04-03 15:47 | disposition home or self-care (01) | DRG 914 ==
LOC: JER 16:43 → JERBED 20:25 → OBSVTOIN 23:52 → J5S 04-02 09:32
PROVIDERS: ADMIT Hospitalist; ATTEND Internal Medicine
DX: S09.90XA Unspecified injury of head, initial encounter (principal); I50.32 Chronic diastolic (congestive) heart failure; I11.0 Hypertensive heart disease with heart failure; E03.9 Hypothyroidism, unspecified; J44.9 Chronic obstructive pulmonary disease, unspecified; E78.5 Hyperlipidemia, unspecified; I48.91 Unspecified atrial fibrillation; I25.10 Atherosclerotic heart disease of native coronary artery without angina pectoris; N20.0 Calculus of kidney; I34.1 Nonrheumatic mitral (valve) prolapse; M54.9 Dorsalgia, unspecified; M25.512 Pain in left shoulder; M25.562 Pain in left knee; M25.552 Pain in left hip; R53.1 Weakness; W19.XXXA Unspecified fall, initial encounter; Y93.9 Activity, unspecified; Y92.89 Other specified places as the place of occurrence of the external cause; Y99.9 Unspecified external cause status
CPT/HCPCS: 36415; 70450-TC; 71045-TC-FY; 72125-TC; 72128-TC; 72131-TC; 72170-TC-FY; 73030-TC-LT-FY; 73502-TC-LT-FY; 73560-TC-LT-FY; 80053; 83735; 84100; 85025; 85027; 85610; 85730; 86850; 86900; 86901; 93005; 93010; 94640; 97116-GP; 97162-GP; 99285-25; C9803-CS; G0378; J1644; U0003; U0005

== ENCOUNTER 2022-05-03 12:57 | Inpatient (IN) | payer OTHER, MEDICARE ==
[2022-05-03 15:13] LABS: BASO % 0.4 % (0-2.0); EOS % 1.5 % (0-4.5); HEMATOCRIT 36.8 % (32.4-45.2); HEMOGLOBIN 11.9 GM/dL (10.7-15.3); LYMPH % 23.5 % (8-40); MCH 29.6 pg (25.7-33.7); MCHC 32.3 g/dl (32.0-36.0); MEAN CELL VOLUME 91.8 fl (80-96); MEAN PLT VOLUME 8.7 fl (7.5-11.1); MONO % 13.2 % (3.8-10.2); NEUT % 61.4 % (42.8-82.8); PLATELET COUNT 146 10^3/uL (134-434); RBC 4.01 M/mm3 (3.60-5.2); RDW 14.5 % (11.6-15.6); WHITE BLOOD COUNT 5.8 K/mm3 (4.0-10.0)
[2022-05-03 15:44] LABS: ALBUMIN 3.4 g/dl (3.4-5.0); BLOOD UREA NITROGEN 21.4 mg/dL (7-18); CALCIUM 8.8 mg/dL (8.5-10.1)
[2022-05-03 15:47] LABS: CREATININE 0.8 mg/dL (0.55-1.3)
[2022-05-03 15:49] LABS: BILIRUBIN,TOTAL 0.5 mg/dL (0.2-1); TOT PROT 6.6 g/dl (6.4-8.2)
[2022-05-03] MEDS ORDERED: DEXAMETHASONE SOD PHOSPHATE 10 MG/1 ML VIAL IVPUSH ONE (16:08)
[2022-05-03] MEDS ORDERED: REMDESIVIR 200 MG in SODIUM CHLORIDE 250 ML IVPB ONE (16:17)
[2022-05-03] MEDS: ALBUTEROL SO4 2.5/IPRATROPIUM 0.5 INH SOL 3 ML VIAL.NEB. NEB SCH ×2 (16:29→16:30)
[2022-05-03] MEDS ORDERED: ALBUTEROL SO4 2.5/IPRATROPIUM 0.5 INH SOL 3 ML VIAL.NEB. NEB ONE (16:29)
[2022-05-03] MEDS ORDERED: DEXAMETHASONE SOD PHOSPHATE 10 MG/1 ML VIAL ONE (16:29)
[2022-05-03] MEDS ORDERED: ALBUTEROL SO4 0.083% IH SOL 2.5 MG/3 ML VIAL.NEB. NEB ONE ×2 (20:55→20:56)
[2022-05-04] MEDS ORDERED: ALBUTEROL SO4 HFA INHALER IH PRN (00:17)
[2022-05-04] MEDS ORDERED: APIXABAN 5 MG TABLET ONE ×2 (01:14→08:11)
[2022-05-04] MEDS: APIXABAN 5 MG TABLET PO SCH ×3 (01:57→21:49)
[2022-05-04] MEDS ORDERED: IPRATROPIUM/ALBUTEROL (COMBIVENT) RESPIMAT 20-100 MCG IH PRN (02:38)
[2022-05-04 07:27] LABS: BASO % 0.1 % (0-2.0); HEMATOCRIT 34.5 % (32.4-45.2); HEMOGLOBIN 11.7 GM/dL (10.7-15.3); LYMPH % 22.4 % (8-40); MCH 31.3 pg (25.7-33.7); MONO % 2.9 % (3.8-10.2); NEUT % 74.6 % (42.8-82.8); PLATELET COUNT 135 10^3/uL (134-434); RBC 3.75 M/mm3 (3.60-5.2); RDW 14.4 % (11.6-15.6); WHITE BLOOD COUNT 3.8 K/mm3 (4.0-10.0)
[2022-05-04] MEDS: LEVOTHYROXINE NA 50 MCG TABLET (FP) PO SCH (07:30)
[2022-05-04 07:53] LABS: ALBUMIN 3.2 g/dl (3.4-5.0); BLOOD UREA NITROGEN 21.9 mg/dL (7-18); CALCIUM 8.4 mg/dL (8.5-10.1); MAGNESIUM 2.1 mg/dL (1.8-2.4)
[2022-05-04 07:56] LABS: CREATININE 0.7 mg/dL (0.55-1.3)
[2022-05-04 07:57] LABS: BILIRUBIN,TOTAL 0.3 mg/dL (0.2-1); TOT PROT 6.6 g/dl (6.4-8.2)
[2022-05-04] MEDS ORDERED: PREGABALIN 50 MG CAPSULE ONE (08:10)
[2022-05-04] MEDS ORDERED: PREGABALIN 100 MG CAPSULE ONE (08:11)
[2022-05-04] MEDS ORDERED: PANTOPRAZOLE 40 MG TABLET PO ONE (08:11)
[2022-05-04] MEDS ORDERED: LOSARTAN POTASSIUM 50 MG TABLET ONE (08:11)
[2022-05-04] MEDS ORDERED: FUROSEMIDE 40 MG TABLET (FP) ONE (08:11)
[2022-05-04] MEDS ORDERED: LEVOTHYROXINE NA 50 MCG TABLET (FP) ONE (08:12)
[2022-05-04] MEDS ORDERED: DULoxetine HCL 30 MG CAPSULE.DR PO ONE (08:12)
[2022-05-04] MEDS ORDERED: DEXAMETHASONE 4 MG TABLET (FP) ONE (08:12)
[2022-05-04] MEDS: DULoxetine HCL 30 MG CAPSULE.DR PO SCH (09:01)
[2022-05-04] MEDS: DEXAMETHASONE 4 MG TABLET (FP) PO SCH (09:01)
[2022-05-04] MEDS: LOSARTAN POTASSIUM 50 MG TABLET PO SCH (09:01)
[2022-05-04] MEDS: FUROSEMIDE 40 MG TABLET (FP) PO SCH (09:02)
[2022-05-04] MEDS: PREGABALIN 50 MG CAPSULE PO SCH ×2 (09:02→21:49)
[2022-05-04] MEDS: PANTOPRAZOLE 40 MG TABLET PO SCH (09:02)
[2022-05-04] MEDS ORDERED: ENOXAPARIN NA (PORCINE) 40 MG/0.4 ML DISP.SYRIN SQ SCH (10:00)
[2022-05-04] MEDS ORDERED: REMDESIVIR 200 MG in SODIUM CHLORIDE 250 ML IVPB ONE (10:00)
[2022-05-04] MEDS ORDERED: DEXAMETHASONE 4 MG TABLET (FP) PO SCH (10:00)
[2022-05-04] MEDS: PRAMIPEXOLE DIHYDROCHLORIDE 0.25 MG TABLET PO SCH ×2 (10:21→21:49)
[2022-05-04] MEDS: FLUTICASONE/UMECLIDIN/VILANTER(200-62.5-25 TRELEGY ELLIPTA) INAHLER IH SCH (10:22)
[2022-05-04] MEDS: REMDESIVIR 100 MG in SODIUM CHLORIDE 250 ML IVPB SCH (10:22)
[2022-05-04] MEDS ORDERED: ONDANSETRON 4 MG/2 ML VIAL IVPUSH ONE (15:14)
[2022-05-04] MEDS ORDERED: ACETAMINOPHEN 1000 MG/100 ML BAG IVPB PRN (15:18)
[2022-05-04] MEDS ORDERED: ONDANSETRON 4 MG/2 ML VIAL IVPUSH PRN (15:18)
[2022-05-04] MEDS ORDERED: PIPERACILLIN/TAZOB 4.5 GM 4.5 GM/100 ML BAG IVPB ONE (15:20)
[2022-05-04] MEDS: PIPERACILLIN/TAZOB 4.5 GM 4.5 GM in DEXTROSE 5%-WATER 100 ML IVPB ONE ×2 (15:31→15:32)
[2022-05-04] MEDS: ROSUVASTATIN CA 20 MG TABLET PO SCH (21:48)
[2022-05-04 22:00] LABS: INR 1.38 (0.83-1.09); PROTHROMBIN TIME (PATIENT) 15.9 SEC (9.7-13.0)
[2022-05-04] MEDS ORDERED: ROSUVASTATIN CA 40 MG TABLET PO SCH (22:00)
[2022-05-04 22:03] LABS: ACTIVATED PTT 28.2 SECONDS (25.2-36.5)
[2022-05-05] MEDS: PIPERACILLIN/TAZOB 3.375 GM 3.375 GM in DEXTROSE 5%-WATER - 50 ML IVPB SCH ×3 (00:47→14:38)
[2022-05-05] MEDS: LEVOTHYROXINE NA 50 MCG TABLET (FP) PO SCH (06:36)
[2022-05-05 07:06] LABS: HEMATOCRIT 36.8 % (32.4-45.2); HEMOGLOBIN 12.3 GM/dL (10.7-15.3); MCH 30.7 pg (25.7-33.7); MCHC 33.4 g/dl (32.0-36.0); MEAN CELL VOLUME 91.9 fl (80-96); MEAN PLT VOLUME 8.9 fl (7.5-11.1); PLATELET COUNT 171 10^3/uL (134-434); RDW 14.4 % (11.6-15.6); WHITE BLOOD COUNT 8.4 K/mm3 (4.0-10.0)
[2022-05-05 07:07] LABS: INR 1.58 (0.83-1.09); PROTHROMBIN TIME (PATIENT) 18.2 SEC (9.7-13.0)
[2022-05-05 07:10] LABS: ACTIVATED PTT 28.7 SECONDS (25.2-36.5)
[2022-05-05 07:27] LABS: ALBUMIN 3.3 g/dl (3.4-5.0); CALCIUM 8.5 mg/dL (8.5-10.1); MAGNESIUM 2.3 mg/dL (1.8-2.4)
[2022-05-05 07:31] LABS: CREATININE 0.9 mg/dL (0.55-1.3); PHOSPHOROUS 3.5 mg/dL (2.5-4.9)
[2022-05-05 07:32] LABS: TOT PROT 6.6 g/dl (6.4-8.2)
[2022-05-05 07:33] LABS: BILIRUBIN,TOTAL 0.2 mg/dL (0.2-1)
[2022-05-05] MEDS: REMDESIVIR 100 MG in SODIUM CHLORIDE 250 ML IVPB SCH (10:27)
[2022-05-05] MEDS: PREGABALIN 50 MG CAPSULE PO SCH ×2 (10:27→21:19)
[2022-05-05] MEDS: PANTOPRAZOLE 40 MG TABLET PO SCH (10:28)
[2022-05-05] MEDS: FUROSEMIDE 40 MG TABLET (FP) PO SCH (10:28)
[2022-05-05] MEDS: LOSARTAN POTASSIUM 50 MG TABLET PO SCH (10:28)
[2022-05-05] MEDS: DEXAMETHASONE 4 MG TABLET (FP) PO SCH (10:28)
[2022-05-05] MEDS: DULoxetine HCL 30 MG CAPSULE.DR PO SCH (10:28)
[2022-05-05] MEDS: PRAMIPEXOLE DIHYDROCHLORIDE 0.25 MG TABLET PO SCH ×2 (10:28→21:19)
[2022-05-05] MEDS: APIXABAN 5 MG TABLET PO SCH ×2 (10:29→21:19)
[2022-05-05] MEDS: FLUTICASONE/UMECLIDIN/VILANTER(200-62.5-25 TRELEGY ELLIPTA) INAHLER IH SCH (10:29)
[2022-05-05] MEDS: ROSUVASTATIN CA 20 MG TABLET PO SCH (21:18)
[2022-05-05] MEDS ORDERED: PIPERACILLIN/TAZOB 3.375 GM 3.375 GM in DEXTROSE 5%-WATER - 50 ML IVPB SCH (23:30)
[2022-05-06] MEDS: LEVOTHYROXINE NA 50 MCG TABLET (FP) PO SCH (06:13)
[2022-05-06 08:12] LABS: HEMATOCRIT 36.1 % (32.4-45.2); MCH 30.8 pg (25.7-33.7); MCHC 33.3 g/dl (32.0-36.0); MEAN CELL VOLUME 92.5 fl (80-96); MEAN PLT VOLUME 8.5 fl (7.5-11.1); PLATELET COUNT 181 10^3/uL (134-434); RDW 14.3 % (11.6-15.6); WHITE BLOOD COUNT 8.2 K/mm3 (4.0-10.0)
[2022-05-06 08:41] LABS: ALBUMIN 3.2 g/dl (3.4-5.0); BLOOD UREA NITROGEN 28.9 mg/dL (7-18); MAGNESIUM 2.2 mg/dL (1.8-2.4)
[2022-05-06 08:43] LABS: CREATININE 0.8 mg/dL (0.55-1.3); PHOSPHOROUS 2.8 mg/dL (2.5-4.9)
[2022-05-06 08:45] LABS: BILIRUBIN,TOTAL 0.5 mg/dL (0.2-1); TOT PROT 6.4 g/dl (6.4-8.2)
[2022-05-06] MEDS: PANTOPRAZOLE 40 MG TABLET PO SCH (09:58)
[2022-05-06] MEDS: PREGABALIN 50 MG CAPSULE PO SCH ×2 (09:58→21:27)
[2022-05-06] MEDS: FUROSEMIDE 40 MG TABLET (FP) PO SCH (09:58)
[2022-05-06] MEDS: DULoxetine HCL 30 MG CAPSULE.DR PO SCH (09:58)
[2022-05-06] MEDS: APIXABAN 5 MG TABLET PO SCH ×2 (09:58→21:27)
[2022-05-06] MEDS: LOSARTAN POTASSIUM 50 MG TABLET PO SCH (09:58)
[2022-05-06] MEDS: DEXAMETHASONE 4 MG TABLET (FP) PO SCH (09:58)
[2022-05-06] MEDS: PRAMIPEXOLE DIHYDROCHLORIDE 0.25 MG TABLET PO SCH ×2 (09:59→21:27)
[2022-05-06] MEDS: REMDESIVIR 100 MG in SODIUM CHLORIDE 250 ML IVPB SCH (09:59)
[2022-05-06] MEDS: FLUTICASONE/UMECLIDIN/VILANTER(200-62.5-25 TRELEGY ELLIPTA) INAHLER IH SCH (10:05)
[2022-05-06] MEDS: ROSUVASTATIN CA 20 MG TABLET PO SCH (21:27)
[2022-05-07] MEDS: LEVOTHYROXINE NA 50 MCG TABLET (FP) PO SCH (06:31)
[2022-05-07] MEDS ORDERED: LACTATED RINGERS SOLUTION 1,000 ML/1,000 ML INFUS.BAG IV SCH (07:30)
[2022-05-07 07:40] LABS: HEMOGLOBIN 11.6 GM/dL (10.7-15.3); MCH 29.7 pg (25.7-33.7); MCHC 32.2 g/dl (32.0-36.0); MEAN CELL VOLUME 92.3 fl (80-96); MEAN PLT VOLUME 8.7 fl (7.5-11.1); PLATELET COUNT 177 10^3/uL (134-434); RDW 14.5 % (11.6-15.6); WHITE BLOOD COUNT 7.5 K/mm3 (4.0-10.0)
[2022-05-07 07:59] LABS: BLOOD UREA NITROGEN 24.9 mg/dL (7-18); MAGNESIUM 2.2 mg/dL (1.8-2.4)
[2022-05-07 08:03] LABS: BILIRUBIN,TOTAL 0.3 mg/dL (0.2-1); CREATININE 0.6 mg/dL (0.55-1.3); PHOSPHOROUS 2.8 mg/dL (2.5-4.9); TOT PROT 5.9 g/dl (6.4-8.2)
[2022-05-07] MEDS: PANTOPRAZOLE 40 MG TABLET PO SCH (10:25)
[2022-05-07] MEDS: APIXABAN 5 MG TABLET PO SCH ×2 (10:25→21:47)
[2022-05-07] MEDS: REMDESIVIR 100 MG in SODIUM CHLORIDE 250 ML IVPB SCH (10:25)
[2022-05-07] MEDS: PRAMIPEXOLE DIHYDROCHLORIDE 0.25 MG TABLET PO SCH ×2 (10:25→21:47)
[2022-05-07] MEDS: DULoxetine HCL 30 MG CAPSULE.DR PO SCH (10:25)
[2022-05-07] MEDS: FUROSEMIDE 40 MG TABLET (FP) PO SCH (10:25)
[2022-05-07] MEDS: DEXAMETHASONE 4 MG TABLET (FP) PO SCH (10:25)
[2022-05-07] MEDS: LOSARTAN POTASSIUM 50 MG TABLET PO SCH (10:25)
[2022-05-07] MEDS: PREGABALIN 50 MG CAPSULE PO SCH ×2 (10:25→21:47)
[2022-05-07] MEDS: FLUTICASONE/UMECLIDIN/VILANTER(200-62.5-25 TRELEGY ELLIPTA) INAHLER IH SCH (10:36)
[2022-05-07] MEDS: ROSUVASTATIN CA 20 MG TABLET PO SCH (21:47)
[2022-05-08] MEDS: LEVOTHYROXINE NA 50 MCG TABLET (FP) PO SCH ×2 (07:30→08:00)
[2022-05-08 09:35] LABS: BASO % 0.1 % (0-2.0); HEMATOCRIT 37.9 % (32.4-45.2); HEMOGLOBIN 12.3 GM/dL (10.7-15.3); LYMPH % 28.2 % (8-40); MCH 29.6 pg (25.7-33.7); MCHC 32.6 g/dl (32.0-36.0); MEAN PLT VOLUME 9.3 fl (7.5-11.1); MONO % 9.3 % (3.8-10.2); NEUT % 62.4 % (42.8-82.8); PLATELET COUNT 185 10^3/uL (134-434); RBC 4.16 M/mm3 (3.60-5.2); RDW 14.5 % (11.6-15.6); WHITE BLOOD COUNT 8.2 K/mm3 (4.0-10.0)
[2022-05-08] MEDS: PRAMIPEXOLE DIHYDROCHLORIDE 0.25 MG TABLET PO SCH ×3 (09:48→21:17)
[2022-05-08] MEDS: DULoxetine HCL 30 MG CAPSULE.DR PO SCH (09:48)
[2022-05-08] MEDS: LOSARTAN POTASSIUM 50 MG TABLET PO SCH (09:48)
[2022-05-08] MEDS: DEXAMETHASONE 4 MG TABLET (FP) PO SCH (09:48)
[2022-05-08] MEDS: APIXABAN 5 MG TABLET PO SCH ×3 (09:48→21:16)
[2022-05-08] MEDS: PREGABALIN 50 MG CAPSULE PO SCH ×3 (09:48→21:16)
[2022-05-08] MEDS: PANTOPRAZOLE 40 MG TABLET PO SCH (09:49)
[2022-05-08] MEDS: FLUTICASONE/UMECLIDIN/VILANTER(200-62.5-25 TRELEGY ELLIPTA) INAHLER IH SCH (10:17)
[2022-05-08 10:21] LABS: BLOOD UREA NITROGEN 24.7 mg/dL (7-18)
[2022-05-08 10:22] LABS: CALCIUM 8.2 mg/dL (8.5-10.1)
[2022-05-08 10:23] LABS: ALBUMIN 3.1 g/dl (3.4-5.0); CREATININE 0.7 mg/dL (0.55-1.3); MAGNESIUM 2.2 mg/dL (1.8-2.4); PHOSPHOROUS 2.5 mg/dL (2.5-4.9)
[2022-05-08 10:25] LABS: BILIRUBIN,TOTAL 0.3 mg/dL (0.2-1); TOT PROT 6.1 g/dl (6.4-8.2)
[2022-05-08] MEDS: FUROSEMIDE 40 MG/4 ML INJECTABLE VIAL IVPUSH SCH (14:41)
[2022-05-08 17:28] LABS: N-TERMINAL BNP 1108.6 pg/ml (5-450)
[2022-05-08] MEDS: ROSUVASTATIN CA 20 MG TABLET PO SCH ×2 (20:31→21:16)
[2022-05-09] MEDS: LEVOTHYROXINE NA 50 MCG TABLET (FP) PO SCH (06:20)
[2022-05-09] MEDS: FUROSEMIDE 40 MG/4 ML INJECTABLE VIAL IVPUSH SCH ×2 (06:20→13:31)
[2022-05-09 07:45] LABS: BASO % 0.1 % (0-2.0); EOS % 0.1 % (0-4.5); HEMATOCRIT 41.1 % (32.4-45.2); HEMOGLOBIN 13.3 GM/dL (10.7-15.3); LYMPH % 28.2 % (8-40); MCH 29.6 pg (25.7-33.7); MCHC 32.5 g/dl (32.0-36.0); MEAN CELL VOLUME 91.2 fl (80-96); MEAN PLT VOLUME 9.3 fl (7.5-11.1); MONO % 8.9 % (3.8-10.2); NEUT % 62.7 % (42.8-82.8); PLATELET COUNT 191 10^3/uL (134-434); RDW 14.2 % (11.6-15.6); WHITE BLOOD COUNT 9.7 K/mm3 (4.0-10.0)
[2022-05-09 07:58] LABS: ALBUMIN 3.3 g/dl (3.4-5.0); BLOOD UREA NITROGEN 26.4 mg/dL (7-18); CALCIUM 8.6 mg/dL (8.5-10.1)
[2022-05-09 07:59] LABS: MAGNESIUM 2.4 mg/dL (1.8-2.4)
[2022-05-09 08:01] LABS: CREATININE 0.7 mg/dL (0.55-1.3); PHOSPHOROUS 3.2 mg/dL (2.5-4.9)
[2022-05-09 08:03] LABS: BILIRUBIN,TOTAL 0.4 mg/dL (0.2-1); TOT PROT 6.5 g/dl (6.4-8.2)
[2022-05-09] MEDS: PANTOPRAZOLE 40 MG TABLET PO SCH (10:30)
[2022-05-09] MEDS: PREGABALIN 50 MG CAPSULE PO SCH ×2 (10:30→22:21)
[2022-05-09] MEDS: DULoxetine HCL 30 MG CAPSULE.DR PO SCH (10:30)
[2022-05-09] MEDS: LOSARTAN POTASSIUM 50 MG TABLET PO SCH (10:31)
[2022-05-09] MEDS: APIXABAN 5 MG TABLET PO SCH ×2 (10:31→22:21)
[2022-05-09] MEDS: PRAMIPEXOLE DIHYDROCHLORIDE 0.25 MG TABLET PO SCH ×2 (10:31→22:21)
[2022-05-09] MEDS: FLUTICASONE/UMECLIDIN/VILANTER(200-62.5-25 TRELEGY ELLIPTA) INAHLER IH SCH (10:35)
[2022-05-09] MEDS: DEXAMETHASONE 4 MG TABLET (FP) PO SCH (10:37)
[2022-05-09] MEDS ORDERED: ONDANSETRON 4 MG/2 ML VIAL IVPUSH PRN (14:39)
[2022-05-09] MEDS ORDERED: IPRATROPIUM/ALBUTEROL (COMBIVENT) RESPIMAT 20-100 MCG IH PRN ×2 (14:39→15:47)
[2022-05-09] MEDS ORDERED: ALBUTEROL SO4 HFA INHALER IH PRN (14:39)
[2022-05-09] MEDS: ROSUVASTATIN CA 20 MG TABLET PO SCH (22:21)
[2022-05-10] MEDS: LEVOTHYROXINE NA 50 MCG TABLET (FP) PO SCH (06:34)
[2022-05-10] MEDS: FUROSEMIDE 40 MG/4 ML INJECTABLE VIAL IVPUSH SCH ×2 (06:34→13:10)
[2022-05-10 09:42] LABS: HEMATOCRIT 41.5 % (32.4-45.2); HEMOGLOBIN 14.1 GM/dL (10.7-15.3); MCH 30.9 pg (25.7-33.7); MCHC 33.9 g/dl (32.0-36.0); MEAN CELL VOLUME 91.2 fl (80-96); MEAN PLT VOLUME 8.4 fl (7.5-11.1); PLATELET COUNT 201 10^3/uL (134-434); RBC 4.55 M/mm3 (3.60-5.2); RDW 14.3 % (11.6-15.6); WHITE BLOOD COUNT 10.7 K/mm3 (4.0-10.0)
[2022-05-10] MEDS ORDERED: DEXAMETHASONE 4 MG TABLET (FP) PO SCH (10:00)
[2022-05-10 10:22] LABS: CALCIUM 8.7 mg/dL (8.5-10.1)
[2022-05-10 10:23] LABS: ALBUMIN 3.2 g/dl (3.4-5.0); BLOOD UREA NITROGEN 28.8 mg/dL (7-18); MAGNESIUM 2.3 mg/dL (1.8-2.4)
[2022-05-10 10:26] LABS: CREATININE 0.8 mg/dL (0.55-1.3); PHOSPHOROUS 3.7 mg/dL (2.5-4.9)
[2022-05-10 10:27] LABS: BILIRUBIN,TOTAL 0.7 mg/dL (0.2-1)
[2022-05-10 10:28] LABS: TOT PROT 6.7 g/dl (6.4-8.2)
[2022-05-10] MEDS: APIXABAN 5 MG TABLET PO SCH ×2 (10:58→23:05)
[2022-05-10] MEDS: PANTOPRAZOLE 40 MG TABLET PO SCH (10:58)
[2022-05-10] MEDS: PREGABALIN 50 MG CAPSULE PO SCH ×2 (10:58→23:06)
[2022-05-10] MEDS: PRAMIPEXOLE DIHYDROCHLORIDE 0.25 MG TABLET PO SCH ×2 (10:58→23:06)
[2022-05-10] MEDS: DULoxetine HCL 30 MG CAPSULE.DR PO SCH (10:59)
[2022-05-10] MEDS: LOSARTAN POTASSIUM 50 MG TABLET PO SCH (10:59)
[2022-05-10] MEDS ORDERED: SODIUM CHLORIDE 1,000 ML IV SCH (11:30)
[2022-05-10] MEDS: FLUTICASONE/UMECLIDIN/VILANTER(200-62.5-25 TRELEGY ELLIPTA) INAHLER IH SCH (17:59)
[2022-05-10] MEDS: ROSUVASTATIN CA 20 MG TABLET PO SCH (23:05)
[2022-05-11] MEDS: FUROSEMIDE 40 MG/4 ML INJECTABLE VIAL IVPUSH SCH ×2 (06:52→15:32)
[2022-05-11] MEDS: LEVOTHYROXINE NA 50 MCG TABLET (FP) PO SCH (06:52)
[2022-05-11] MEDS: PANTOPRAZOLE 40 MG TABLET PO SCH (11:00)
[2022-05-11] MEDS: PREGABALIN 50 MG CAPSULE PO SCH ×2 (11:00→22:04)
[2022-05-11] MEDS: DULoxetine HCL 30 MG CAPSULE.DR PO SCH (11:00)
[2022-05-11] MEDS: LOSARTAN POTASSIUM 50 MG TABLET PO SCH (11:00)
[2022-05-11] MEDS: APIXABAN 5 MG TABLET PO SCH ×2 (11:00→22:03)
[2022-05-11] MEDS: PRAMIPEXOLE DIHYDROCHLORIDE 0.25 MG TABLET PO SCH ×2 (11:00→22:04)
[2022-05-11] MEDS: FLUTICASONE/UMECLIDIN/VILANTER(200-62.5-25 TRELEGY ELLIPTA) INAHLER IH SCH (11:01)
[2022-05-11 11:55] LABS: HEMATOCRIT 42.8 % (32.4-45.2); MCH 29.7 pg (25.7-33.7); MCHC 32.6 g/dl (32.0-36.0); MEAN CELL VOLUME 91.1 fl (80-96); MEAN PLT VOLUME 9.1 fl (7.5-11.1); PLATELET COUNT 208 10^3/uL (134-434); RDW 14.9 % (11.6-15.6); WHITE BLOOD COUNT 12.1 K/mm3 (4.0-10.0)
[2022-05-11 12:17] LABS: CALCIUM 8.6 mg/dL (8.5-10.1)
[2022-05-11 12:18] LABS: MAGNESIUM 1.9 mg/dL (1.8-2.4)
[2022-05-11 12:21] LABS: CREATININE 0.8 mg/dL (0.55-1.3); PHOSPHOROUS 2.5 mg/dL (2.5-4.9)
[2022-05-11 12:22] LABS: BILIRUBIN,TOTAL 0.5 mg/dL (0.2-1)
[2022-05-11 12:23] LABS: TOT PROT 6.4 g/dl (6.4-8.2)
[2022-05-11] MEDS: POTASSIUM CHLORIDE ORAL LIQUID 20 MEQ/15 ML PO SCH ×2 (17:26→22:05)
[2022-05-11] MEDS: DEXAMETHASONE 4 MG TABLET (FP) PO SCH (17:26)
[2022-05-11] MEDS: ROSUVASTATIN CA 20 MG TABLET PO SCH (22:03)
[2022-05-11] MEDS: MELATONIN 5 MG TABLETS PO PRN (22:03)
[2022-05-12] MEDS: FUROSEMIDE 40 MG/4 ML INJECTABLE VIAL IVPUSH SCH ×2 (06:20→13:38)
[2022-05-12] MEDS: LEVOTHYROXINE NA 50 MCG TABLET (FP) PO SCH (06:21)
[2022-05-12] MEDS: APIXABAN 5 MG TABLET PO SCH ×2 (09:56→21:20)
[2022-05-12] MEDS: DEXAMETHASONE 4 MG TABLET (FP) PO SCH (09:56)
[2022-05-12] MEDS: PRAMIPEXOLE DIHYDROCHLORIDE 0.25 MG TABLET PO SCH ×2 (09:56→21:20)
[2022-05-12] MEDS: LOSARTAN POTASSIUM 50 MG TABLET PO SCH (09:57)
[2022-05-12] MEDS: PREGABALIN 50 MG CAPSULE PO SCH ×2 (09:57→21:20)
[2022-05-12] MEDS: PANTOPRAZOLE 40 MG TABLET PO SCH (09:57)
[2022-05-12] MEDS: DULoxetine HCL 30 MG CAPSULE.DR PO SCH (09:57)
[2022-05-12] MEDS: FLUTICASONE/UMECLIDIN/VILANTER(200-62.5-25 TRELEGY ELLIPTA) INAHLER IH SCH (09:58)
[2022-05-12] MEDS ORDERED: POTASSIUM CHLORIDE TABS 20 MEQ TABLET.ER (FP) PO ONE (12:45)
[2022-05-12] MEDS ORDERED: KCL 10 MEQ IVPB 10 MEQ/100 ML INFUS.BAG IVPB SCH (12:45)
[2022-05-12 13:13] LABS: HEMATOCRIT 41.6 % (32.4-45.2); HEMOGLOBIN 13.4 GM/dL (10.7-15.3); MCH 29.4 pg (25.7-33.7); MCHC 32.3 g/dl (32.0-36.0); MEAN CELL VOLUME 91.1 fl (80-96); MEAN PLT VOLUME 9.3 fl (7.5-11.1); PLATELET COUNT 198 10^3/uL (134-434); RBC 4.56 M/mm3 (3.60-5.2); RDW 14.3 % (11.6-15.6)
[2022-05-12 13:34] LABS: CALCIUM 8.9 mg/dL (8.5-10.1)
[2022-05-12 13:35] LABS: BLOOD UREA NITROGEN 31.8 mg/dL (7-18); MAGNESIUM 2.2 mg/dL (1.8-2.4)
[2022-05-12 13:38] LABS: CREATININE 0.7 mg/dL (0.55-1.3); PHOSPHOROUS 3.9 mg/dL (2.5-4.9)
[2022-05-12] MEDS: ROSUVASTATIN CA 20 MG TABLET PO SCH (21:20)
[2022-05-12] MEDS: MELATONIN 5 MG TABLETS PO PRN (21:28)
[2022-05-13] MEDS: FUROSEMIDE 40 MG/4 ML INJECTABLE VIAL IVPUSH SCH ×2 (06:14→13:38)
[2022-05-13] MEDS: LEVOTHYROXINE NA 50 MCG TABLET (FP) PO SCH (06:14)
[2022-05-13] MEDS: DEXAMETHASONE 4 MG TABLET (FP) PO SCH (09:06)
[2022-05-13] MEDS: PRAMIPEXOLE DIHYDROCHLORIDE 0.25 MG TABLET PO SCH ×2 (09:07→22:54)
[2022-05-13] MEDS: PANTOPRAZOLE 40 MG TABLET PO SCH (09:07)
[2022-05-13] MEDS: PREGABALIN 50 MG CAPSULE PO SCH ×2 (09:07→22:40)
[2022-05-13] MEDS: APIXABAN 5 MG TABLET PO SCH ×2 (09:07→22:40)
[2022-05-13] MEDS: FLUTICASONE/UMECLIDIN/VILANTER(200-62.5-25 TRELEGY ELLIPTA) INAHLER IH SCH (09:11)
[2022-05-13] MEDS: LOSARTAN POTASSIUM 50 MG TABLET PO SCH (09:13)
[2022-05-13 09:41] LABS: HEMATOCRIT 43.5 % (32.4-45.2); HEMOGLOBIN 14.1 GM/dL (10.7-15.3); MCH 29.7 pg (25.7-33.7); MCHC 32.4 g/dl (32.0-36.0); MEAN CELL VOLUME 91.8 fl (80-96); MEAN PLT VOLUME 9.2 fl (7.5-11.1); PLATELET COUNT 179 10^3/uL (134-434); RBC 4.74 M/mm3 (3.60-5.2); RDW 14.5 % (11.6-15.6); WHITE BLOOD COUNT 12.3 K/mm3 (4.0-10.0)
[2022-05-13 10:28] LABS: ALBUMIN 3.2 g/dl (3.4-5.0); BLOOD UREA NITROGEN 29.8 mg/dL (7-18)
[2022-05-13 10:31] LABS: BILIRUBIN,TOTAL 0.6 mg/dL (0.2-1); CREATININE 0.9 mg/dL (0.55-1.3); PHOSPHOROUS 3.4 mg/dL (2.5-4.9); TOT PROT 6.5 g/dl (6.4-8.2)
[2022-05-13 10:46] LABS: CALCIUM 8.6 mg/dL (8.5-10.1); MAGNESIUM 2.2 mg/dL (1.8-2.4)
[2022-05-13] MEDS ORDERED: POTASSIUM CHLORIDE TABS 20 MEQ TABLET.ER (FP) PO ONE (11:30)
[2022-05-13] MEDS: DULoxetine HCL 30 MG CAPSULE.DR PO SCH (13:38)
[2022-05-13] MEDS: ROSUVASTATIN CA 20 MG TABLET PO SCH (22:40)
[2022-05-13] MEDS: MELATONIN 5 MG TABLETS PO PRN (23:00)
[2022-05-14] MEDS: FUROSEMIDE 40 MG/4 ML INJECTABLE VIAL IVPUSH SCH ×2 (07:01→14:28)
[2022-05-14] MEDS: LEVOTHYROXINE NA 50 MCG TABLET (FP) PO SCH (07:06)
[2022-05-14 09:35] LABS: HEMATOCRIT 43.6 % (32.4-45.2); HEMOGLOBIN 14.4 GM/dL (10.7-15.3); MCH 30.3 pg (25.7-33.7); MCHC 33.1 g/dl (32.0-36.0); MEAN CELL VOLUME 91.6 fl (80-96); MEAN PLT VOLUME 8.9 fl (7.5-11.1); PLATELET COUNT 165 10^3/uL (134-434); RBC 4.76 M/mm3 (3.60-5.2); RDW 14.7 % (11.6-15.6); WHITE BLOOD COUNT 13.4 K/mm3 (4.0-10.0)
[2022-05-14 09:49] LABS: BLOOD UREA NITROGEN 35.2 mg/dL (7-18); CALCIUM 8.9 mg/dL (8.5-10.1); MAGNESIUM 2.3 mg/dL (1.8-2.4)
[2022-05-14 09:53] LABS: CREATININE 0.8 mg/dL (0.55-1.3)
[2022-05-14] MEDS: LOSARTAN POTASSIUM 50 MG TABLET PO SCH (10:17)
[2022-05-14] MEDS: PREGABALIN 50 MG CAPSULE PO SCH ×2 (10:17→21:49)
[2022-05-14] MEDS: PANTOPRAZOLE 40 MG TABLET PO SCH (10:17)
[2022-05-14] MEDS: APIXABAN 5 MG TABLET PO SCH ×2 (10:17→21:48)
[2022-05-14] MEDS: methylPREDNISolone NA SUCC 40 MG/1 ML VIAL IVPUSH SCH ×2 (10:17→18:18)
[2022-05-14] MEDS: DULoxetine HCL 30 MG CAPSULE.DR PO SCH (10:18)
[2022-05-14] MEDS: PRAMIPEXOLE DIHYDROCHLORIDE 0.25 MG TABLET PO SCH ×2 (10:18→21:53)
[2022-05-14] MEDS: FLUTICASONE/UMECLIDIN/VILANTER(200-62.5-25 TRELEGY ELLIPTA) INAHLER IH SCH (10:18)
[2022-05-14] MEDS: ALBUTEROL SO4 HFA INHALER IH SCH ×3 (11:46→21:53)
[2022-05-14] MEDS: ROSUVASTATIN CA 20 MG TABLET PO SCH (21:48)
[2022-05-14] MEDS: MELATONIN 5 MG TABLETS PO PRN (21:50)
[2022-05-15] MEDS: methylPREDNISolone NA SUCC 40 MG/1 ML VIAL IVPUSH SCH ×3 (01:42→17:36)
[2022-05-15] MEDS: FUROSEMIDE 40 MG/4 ML INJECTABLE VIAL IVPUSH SCH ×2 (05:16→14:16)
[2022-05-15] MEDS: LEVOTHYROXINE NA 50 MCG TABLET (FP) PO SCH (06:03)
[2022-05-15 08:46] LABS: HEMATOCRIT 42.9 % (32.4-45.2); HEMOGLOBIN 13.8 GM/dL (10.7-15.3); MCH 29.3 pg (25.7-33.7); MCHC 32.3 g/dl (32.0-36.0); MEAN CELL VOLUME 90.7 fl (80-96); PLATELET COUNT 164 10^3/uL (134-434); RBC 4.73 M/mm3 (3.60-5.2); RDW 14.8 % (11.6-15.6); WHITE BLOOD COUNT 11.2 K/mm3 (4.0-10.0)
[2022-05-15] MEDS: ALBUTEROL SO4 HFA INHALER IH SCH ×4 (08:56→20:10)
[2022-05-15 09:27] LABS: BLOOD UREA NITROGEN 35.8 mg/dL (7-18); CALCIUM 8.6 mg/dL (8.5-10.1); MAGNESIUM 2.2 mg/dL (1.8-2.4)
[2022-05-15 09:30] LABS: CREATININE 0.8 mg/dL (0.55-1.3); PHOSPHOROUS 4.4 mg/dL (2.5-4.9)
[2022-05-15 09:32] LABS: BILIRUBIN,TOTAL 0.6 mg/dL (0.2-1); TOT PROT 6.6 g/dl (6.4-8.2)
[2022-05-15] MEDS: PANTOPRAZOLE 40 MG TABLET PO SCH (10:33)
[2022-05-15] MEDS: LOSARTAN POTASSIUM 50 MG TABLET PO SCH (10:33)
[2022-05-15] MEDS: PRAMIPEXOLE DIHYDROCHLORIDE 0.25 MG TABLET PO SCH ×2 (10:33→21:22)
[2022-05-15] MEDS: APIXABAN 5 MG TABLET PO SCH ×2 (10:33→21:08)
[2022-05-15] MEDS: PREGABALIN 50 MG CAPSULE PO SCH ×2 (10:33→21:08)
[2022-05-15] MEDS: FLUTICASONE/UMECLIDIN/VILANTER(200-62.5-25 TRELEGY ELLIPTA) INAHLER IH SCH (10:34)
[2022-05-15] MEDS: DULoxetine HCL 30 MG CAPSULE.DR PO SCH (10:34)
[2022-05-15] MEDS: ROSUVASTATIN CA 20 MG TABLET PO SCH (21:07)
[2022-05-15] MEDS: MELATONIN 5 MG TABLETS PO PRN (21:22)
[2022-05-16] MEDS: methylPREDNISolone NA SUCC 40 MG/1 ML VIAL IVPUSH SCH ×3 (01:58→22:46)
[2022-05-16] MEDS: FUROSEMIDE 40 MG/4 ML INJECTABLE VIAL IVPUSH SCH ×2 (05:23→14:11)
[2022-05-16] MEDS: LEVOTHYROXINE NA 50 MCG TABLET (FP) PO SCH (06:43)
[2022-05-16] MEDS: ALBUTEROL SO4 HFA INHALER IH SCH ×4 (08:22→23:38)
[2022-05-16] MEDS: PANTOPRAZOLE 40 MG TABLET PO SCH (10:21)
[2022-05-16] MEDS: FLUTICASONE/UMECLIDIN/VILANTER(200-62.5-25 TRELEGY ELLIPTA) INAHLER IH SCH (10:21)
[2022-05-16] MEDS: APIXABAN 5 MG TABLET PO SCH ×2 (10:21→23:37)
[2022-05-16] MEDS: PRAMIPEXOLE DIHYDROCHLORIDE 0.25 MG TABLET PO SCH ×2 (10:21→23:37)
[2022-05-16] MEDS: PREGABALIN 50 MG CAPSULE PO SCH ×2 (10:21→23:37)
[2022-05-16] MEDS: LOSARTAN POTASSIUM 50 MG TABLET PO SCH (10:21)
[2022-05-16] MEDS: DULoxetine HCL 30 MG CAPSULE.DR PO SCH (10:21)
[2022-05-16 10:56] LABS: HEMATOCRIT 41.2 % (32.4-45.2); HEMOGLOBIN 13.6 GM/dL (10.7-15.3); MCH 30.4 pg (25.7-33.7); MEAN CELL VOLUME 91.9 fl (80-96); MEAN PLT VOLUME 9.3 fl (7.5-11.1); PLATELET COUNT 129 10^3/uL (134-434); RBC 4.49 M/mm3 (3.60-5.2); RDW 14.4 % (11.6-15.6); WHITE BLOOD COUNT 12.4 K/mm3 (4.0-10.0)
[2022-05-16 11:19] LABS: CALCIUM 8.7 mg/dL (8.5-10.1)
[2022-05-16 11:20] LABS: ALBUMIN 2.8 g/dl (3.4-5.0); BLOOD UREA NITROGEN 41.2 mg/dL (7-18); MAGNESIUM 2.4 mg/dL (1.8-2.4)
[2022-05-16 11:23] LABS: CREATININE 0.8 mg/dL (0.55-1.3); PHOSPHOROUS 3.7 mg/dL (2.5-4.9)
[2022-05-16 11:24] LABS: BILIRUBIN,TOTAL 0.5 mg/dL (0.2-1)
[2022-05-16 11:26] LABS: TOT PROT 6.1 g/dl (6.4-8.2)
[2022-05-16 15:04] VITALS: BMI 34.7
[2022-05-16] MEDS: ROSUVASTATIN CA 20 MG TABLET PO SCH (23:37)
[2022-05-16] MEDS: MELATONIN 5 MG TABLETS PO PRN (23:38)
[2022-05-17] MEDS: methylPREDNISolone NA SUCC 40 MG/1 ML VIAL IVPUSH SCH ×2 (02:27→09:30)
[2022-05-17] MEDS: FUROSEMIDE 40 MG TABLET (FP) PO SCH ×2 (05:59→13:01)
[2022-05-17] MEDS: LEVOTHYROXINE NA 50 MCG TABLET (FP) PO SCH (06:00)
[2022-05-17] MEDS: APIXABAN 5 MG TABLET PO SCH ×2 (09:30→22:35)
[2022-05-17] MEDS: DULoxetine HCL 30 MG CAPSULE.DR PO SCH (09:30)
[2022-05-17] MEDS: PANTOPRAZOLE 40 MG TABLET PO SCH (09:30)
[2022-05-17] MEDS: PRAMIPEXOLE DIHYDROCHLORIDE 0.25 MG TABLET PO SCH ×2 (09:30→22:35)
[2022-05-17] MEDS: PREGABALIN 50 MG CAPSULE PO SCH ×2 (09:30→22:35)
[2022-05-17] MEDS: FLUTICASONE/UMECLIDIN/VILANTER(200-62.5-25 TRELEGY ELLIPTA) INAHLER IH SCH (09:31)
[2022-05-17] MEDS: ALBUTEROL SO4 HFA INHALER IH SCH ×4 (09:32→22:36)
[2022-05-17] MEDS: LOSARTAN POTASSIUM 50 MG TABLET PO SCH (09:32)
[2022-05-17 09:52] LABS: HEMATOCRIT 41.1 % (32.4-45.2); HEMOGLOBIN 13.1 GM/dL (10.7-15.3); MCH 29.1 pg (25.7-33.7); MCHC 31.9 g/dl (32.0-36.0); MEAN CELL VOLUME 91.1 fl (80-96); MEAN PLT VOLUME 9.6 fl (7.5-11.1); PLATELET COUNT 141 10^3/uL (134-434); RBC 4.51 M/mm3 (3.60-5.2); RDW 14.2 % (11.6-15.6); WHITE BLOOD COUNT 12.7 K/mm3 (4.0-10.0)
[2022-05-17 10:12] LABS: ALBUMIN 2.6 g/dl (3.4-5.0); BLOOD UREA NITROGEN 43.2 mg/dL (7-18); CALCIUM 8.2 mg/dL (8.5-10.1); MAGNESIUM 2.2 mg/dL (1.8-2.4)
[2022-05-17 10:16] LABS: CREATININE 0.9 mg/dL (0.55-1.3); PHOSPHOROUS 3.6 mg/dL (2.5-4.9)
[2022-05-17 10:17] LABS: BILIRUBIN,TOTAL 0.8 mg/dL (0.2-1); TOT PROT 5.8 g/dl (6.4-8.2)
[2022-05-17] MEDS: predniSONE 20 MG TABLET (UD) PO SCH (13:01)
[2022-05-17] MEDS: ALBUTEROL SO4 2.5/IPRATROPIUM 0.5 INH SOL 3 ML VIAL.NEB. NEB SCH ×2 (15:05→20:16)
[2022-05-17] MEDS: MELATONIN 5 MG TABLETS PO PRN (22:35)
[2022-05-17] MEDS: ROSUVASTATIN CA 20 MG TABLET PO SCH (22:36)
[2022-05-18] MEDS: FUROSEMIDE 40 MG TABLET (FP) PO SCH ×2 (05:07→16:35)
[2022-05-18] MEDS: LEVOTHYROXINE NA 50 MCG TABLET (FP) PO SCH (06:03)
[2022-05-18] MEDS: ALBUTEROL SO4 2.5/IPRATROPIUM 0.5 INH SOL 3 ML VIAL.NEB. NEB SCH ×3 (07:43→21:26)
[2022-05-18 08:42] LABS: HEMATOCRIT 40.3 % (32.4-45.2); MCH 29.2 pg (25.7-33.7); MCHC 32.3 g/dl (32.0-36.0); MEAN CELL VOLUME 90.5 fl (80-96); MEAN PLT VOLUME 9.6 fl (7.5-11.1); PLATELET COUNT 136 10^3/uL (134-434); RBC 4.45 M/mm3 (3.60-5.2); RDW 14.1 % (11.6-15.6); WHITE BLOOD COUNT 11.4 K/mm3 (4.0-10.0)
[2022-05-18 08:55] LABS: CALCIUM 8.3 mg/dL (8.5-10.1)
[2022-05-18 08:56] LABS: ALBUMIN 2.7 g/dl (3.4-5.0); BLOOD UREA NITROGEN 37.7 mg/dL (7-18); MAGNESIUM 2.6 mg/dL (1.8-2.4)
[2022-05-18 08:59] LABS: CREATININE 0.7 mg/dL (0.55-1.3); PHOSPHOROUS 3.1 mg/dL (2.5-4.9)
[2022-05-18 09:00] LABS: BILIRUBIN,TOTAL 0.5 mg/dL (0.2-1)
[2022-05-18 09:01] LABS: TOT PROT 5.7 g/dl (6.4-8.2)
[2022-05-18] MEDS: ALBUTEROL SO4 HFA INHALER IH SCH ×4 (09:30→21:27)
[2022-05-18] MEDS: methylPREDNISolone NA SUCC 40 MG/1 ML VIAL IVPUSH SCH ×2 (10:31→17:42)
[2022-05-18] MEDS: PREGABALIN 50 MG CAPSULE PO SCH ×2 (10:31→21:27)
[2022-05-18] MEDS: APIXABAN 5 MG TABLET PO SCH ×2 (10:31→21:26)
[2022-05-18] MEDS: FLUTICASONE/UMECLIDIN/VILANTER(200-62.5-25 TRELEGY ELLIPTA) INAHLER IH SCH (10:32)
[2022-05-18] MEDS: PRAMIPEXOLE DIHYDROCHLORIDE 0.25 MG TABLET PO SCH ×2 (10:32→21:26)
[2022-05-18] MEDS: DULoxetine HCL 30 MG CAPSULE.DR PO SCH (10:32)
[2022-05-18] MEDS: predniSONE 20 MG TABLET (UD) PO SCH (10:33)
[2022-05-18] MEDS: LOSARTAN POTASSIUM 50 MG TABLET PO SCH (10:34)
[2022-05-18] MEDS: PANTOPRAZOLE 40 MG TABLET PO SCH (10:34)
[2022-05-18] MEDS ORDERED: PIPERACILLIN/TAZOB 4.5 GM 4.5 GM in DEXTROSE 5%-WATER 100 ML IVPB SCH (17:00)
[2022-05-18] MEDS: ROSUVASTATIN CA 20 MG TABLET PO SCH (21:26)
[2022-05-18] MEDS: MELATONIN 5 MG TABLETS PO PRN (21:32)
[2022-05-19] MEDS: methylPREDNISolone NA SUCC 40 MG/1 ML VIAL IVPUSH SCH ×3 (02:01→17:15)
[2022-05-19] MEDS: PIPERACILLIN/TAZOB 4.5 GM 4.5 GM in DEXTROSE 5%-WATER 100 ML IVPB SCH ×3 (02:01→17:15)
[2022-05-19] MEDS: FUROSEMIDE 40 MG TABLET (FP) PO SCH ×2 (05:29→15:22)
[2022-05-19] MEDS: LEVOTHYROXINE NA 50 MCG TABLET (FP) PO SCH (06:00)
[2022-05-19] MEDS: ALBUTEROL SO4 HFA INHALER IH SCH ×4 (09:00→21:51)
[2022-05-19 09:57] LABS: HEMATOCRIT 38.8 % (32.4-45.2); HEMOGLOBIN 12.7 GM/dL (10.7-15.3); LYMPH % 9.5 % (8-40); MCH 29.6 pg (25.7-33.7); MCHC 32.6 g/dl (32.0-36.0); MEAN CELL VOLUME 90.7 fl (80-96); MEAN PLT VOLUME 9.3 fl (7.5-11.1); MONO % 3.4 % (3.8-10.2); NEUT % 87.1 % (42.8-82.8); PLATELET COUNT 120 10^3/uL (134-434); RBC 4.28 M/mm3 (3.60-5.2); RDW 14.3 % (11.6-15.6); WHITE BLOOD COUNT 9.3 K/mm3 (4.0-10.0)
[2022-05-19 09:58] LABS: ALBUMIN 2.5 g/dl (3.4-5.0); BLOOD UREA NITROGEN 39.9 mg/dL (7-18); CALCIUM 8.2 mg/dL (8.5-10.1); MAGNESIUM 2.2 mg/dL (1.8-2.4)
[2022-05-19 10:01] LABS: CREATININE 1.1 mg/dL (0.55-1.3); PHOSPHOROUS 3.6 mg/dL (2.5-4.9)
[2022-05-19 10:02] LABS: BILIRUBIN,TOTAL 0.7 mg/dL (0.2-1)
[2022-05-19 10:03] LABS: TOT PROT 5.6 g/dl (6.4-8.2)
[2022-05-19] MEDS: PANTOPRAZOLE 40 MG TABLET PO SCH (10:55)
[2022-05-19] MEDS: PREGABALIN 50 MG CAPSULE PO SCH ×2 (10:55→21:52)
[2022-05-19] MEDS: PRAMIPEXOLE DIHYDROCHLORIDE 0.25 MG TABLET PO SCH ×2 (10:55→21:54)
[2022-05-19] MEDS: APIXABAN 5 MG TABLET PO SCH ×2 (10:55→21:52)
[2022-05-19] MEDS: DULoxetine HCL 30 MG CAPSULE.DR PO SCH (10:56)
[2022-05-19] MEDS: LOSARTAN POTASSIUM 50 MG TABLET PO SCH (10:57)
[2022-05-19] MEDS: ALBUTEROL SO4 2.5/IPRATROPIUM 0.5 INH SOL 3 ML VIAL.NEB. NEB SCH ×3 (10:57→20:00)
[2022-05-19] MEDS: FLUTICASONE/UMECLIDIN/VILANTER(200-62.5-25 TRELEGY ELLIPTA) INAHLER IH SCH (10:58)
[2022-05-19] MEDS: ROSUVASTATIN CA 20 MG TABLET PO SCH (21:52)
[2022-05-19] MEDS: MELATONIN 5 MG TABLETS PO PRN (21:59)
[2022-05-20] MEDS: PIPERACILLIN/TAZOB 4.5 GM 4.5 GM in DEXTROSE 5%-WATER 100 ML IVPB SCH ×3 (01:39→18:45)
[2022-05-20] MEDS: methylPREDNISolone NA SUCC 40 MG/1 ML VIAL IVPUSH SCH ×3 (01:39→22:15)
[2022-05-20] MEDS: LEVOTHYROXINE NA 50 MCG TABLET (FP) PO SCH (06:08)
[2022-05-20] MEDS: FUROSEMIDE 40 MG TABLET (FP) PO SCH ×2 (06:08→14:09)
[2022-05-20] MEDS: ALBUTEROL SO4 2.5/IPRATROPIUM 0.5 INH SOL 3 ML VIAL.NEB. NEB SCH ×3 (08:45→20:14)
[2022-05-20] MEDS: ALBUTEROL SO4 HFA INHALER IH SCH ×4 (09:00→22:15)
[2022-05-20 09:14] LABS: BASO % 0.1 % (0-2.0); HEMATOCRIT 38.6 % (32.4-45.2); HEMOGLOBIN 12.7 GM/dL (10.7-15.3); LYMPH % 9.7 % (8-40); MCH 29.8 pg (25.7-33.7); MEAN CELL VOLUME 90.5 fl (80-96); MEAN PLT VOLUME 9.2 fl (7.5-11.1); MONO % 4.8 % (3.8-10.2); NEUT % 85.4 % (42.8-82.8); PLATELET COUNT 133 10^3/uL (134-434); RBC 4.27 M/mm3 (3.60-5.2); RDW 14.3 % (11.6-15.6)
[2022-05-20 09:31] LABS: ALBUMIN 2.6 g/dl (3.4-5.0)
[2022-05-20 09:32] LABS: BLOOD UREA NITROGEN 36.4 mg/dL (7-18); MAGNESIUM 2.3 mg/dL (1.8-2.4)
[2022-05-20 09:34] LABS: CREATININE 0.9 mg/dL (0.55-1.3); PHOSPHOROUS 3.9 mg/dL (2.5-4.9)
[2022-05-20 09:36] LABS: BILIRUBIN,TOTAL 0.7 mg/dL (0.2-1); TOT PROT 5.7 g/dl (6.4-8.2)
[2022-05-20] MEDS: PREGABALIN 50 MG CAPSULE PO SCH ×2 (11:27→22:15)
[2022-05-20] MEDS: PRAMIPEXOLE DIHYDROCHLORIDE 0.25 MG TABLET PO SCH ×2 (11:28→22:15)
[2022-05-20] MEDS: APIXABAN 5 MG TABLET PO SCH ×2 (11:28→22:16)
[2022-05-20] MEDS: DULoxetine HCL 30 MG CAPSULE.DR PO SCH (11:28)
[2022-05-20] MEDS: LOSARTAN POTASSIUM 50 MG TABLET PO SCH (11:28)
[2022-05-20] MEDS: FLUTICASONE/UMECLIDIN/VILANTER(200-62.5-25 TRELEGY ELLIPTA) INAHLER IH SCH (11:29)
[2022-05-20] MEDS: PANTOPRAZOLE 40 MG TABLET PO SCH (11:29)
[2022-05-20] MEDS ORDERED: methylPREDNISolone NA SUCC 40 MG/1 ML VIAL IVPUSH SCH (14:30)
[2022-05-20 16:23] VITALS: RESP 20
[2022-05-20] MEDS: ROSUVASTATIN CA 20 MG TABLET PO SCH (22:16)
[2022-05-20] MEDS: MELATONIN 5 MG TABLETS PO PRN (22:25)
[2022-05-21] MEDS: PIPERACILLIN/TAZOB 4.5 GM 4.5 GM in DEXTROSE 5%-WATER 100 ML IVPB SCH ×3 (02:01→18:00)
[2022-05-21] MEDS ORDERED: ACETAMINOPHEN 1000 MG/100 ML BAG IVPB ONE (02:13)
[2022-05-21] MEDS: LEVOTHYROXINE NA 50 MCG TABLET (FP) PO SCH (06:50)
[2022-05-21] MEDS: FUROSEMIDE 40 MG TABLET (FP) PO SCH ×2 (06:50→15:46)
[2022-05-21] MEDS: ALBUTEROL SO4 2.5/IPRATROPIUM 0.5 INH SOL 3 ML VIAL.NEB. NEB SCH ×2 (07:47→14:25)
[2022-05-21 08:25] LABS: HEMATOCRIT 37.3 % (32.4-45.2); HEMOGLOBIN 12.2 GM/dL (10.7-15.3); MCH 29.5 pg (25.7-33.7); MCHC 32.6 g/dl (32.0-36.0); MEAN CELL VOLUME 90.3 fl (80-96); MEAN PLT VOLUME 9.1 fl (7.5-11.1); PLATELET COUNT 124 10^3/uL (134-434); RBC 4.13 M/mm3 (3.60-5.2); RDW 14.1 % (11.6-15.6); WHITE BLOOD COUNT 9.2 K/mm3 (4.0-10.0)
[2022-05-21] MEDS: ALBUTEROL SO4 HFA INHALER IH SCH ×3 (08:37→16:57)
[2022-05-21 09:08] LABS: CALCIUM 8.2 mg/dL (8.5-10.1)
[2022-05-21 09:09] LABS: ALBUMIN 2.4 g/dl (3.4-5.0); BLOOD UREA NITROGEN 38.3 mg/dL (7-18); MAGNESIUM 2.6 mg/dL (1.8-2.4)
[2022-05-21 09:11] LABS: PHOSPHOROUS 4.1 mg/dL (2.5-4.9)
[2022-05-21 09:12] LABS: CREATININE 0.9 mg/dL (0.55-1.3)
[2022-05-21 09:13] LABS: BILIRUBIN,TOTAL 1.4 mg/dL (0.2-1)
[2022-05-21 09:14] LABS: TOT PROT 5.3 g/dl (6.4-8.2)
[2022-05-21] MEDS: PREGABALIN 50 MG CAPSULE PO SCH (11:05)
[2022-05-21] MEDS: PANTOPRAZOLE 40 MG TABLET PO SCH (11:05)
[2022-05-21] MEDS: LOSARTAN POTASSIUM 50 MG TABLET PO SCH (11:06)
[2022-05-21] MEDS: PRAMIPEXOLE DIHYDROCHLORIDE 0.25 MG TABLET PO SCH (11:06)
[2022-05-21] MEDS: APIXABAN 5 MG TABLET PO SCH (11:06)
[2022-05-21] MEDS: DULoxetine HCL 30 MG CAPSULE.DR PO SCH (11:06)
[2022-05-21] MEDS: FLUTICASONE/UMECLIDIN/VILANTER(200-62.5-25 TRELEGY ELLIPTA) INAHLER IH SCH (11:07)
[2022-05-21] MEDS: methylPREDNISolone NA SUCC 40 MG/1 ML VIAL IVPUSH SCH (11:18)
[2022-05-21 16:04] VITALS: TEMP 98.9
[2022-05-21 16:06] VITALS: BP 99/52; PULSE 60
== END 2022-05-21 18:25 | disposition home health service (06) | DRG 177 ==
LOC: JER 12:57 → JERBED 17:37 → OBSVTOIN 23:35 → J4W 05-04 20:05 → J5S 05-09 15:17 → J8W 05-13 13:12
PROVIDERS: ADMIT Internal Medicine; ATTEND Internal Medicine
PROC: XW033E5 Introduction of Remdesivir Anti-infective into Peripheral Vein, Percutaneous Approach, New Technology Group 5 (ICD-10-PCS; principal; 2022-05-03)
DX: U07.1 COVID-19 (principal); I50.33 Acute on chronic diastolic (congestive) heart failure; J12.82 Pneumonia due to coronavirus disease 2019; J96.21 Acute and chronic respiratory failure with hypoxia; J44.1 Chronic obstructive pulmonary disease with (acute) exacerbation; Z79.01 Long term (current) use of anticoagulants; J44.9 Chronic obstructive pulmonary disease, unspecified; Z99.81 Dependence on supplemental oxygen; I25.10 Atherosclerotic heart disease of native coronary artery without angina pectoris; E03.9 Hypothyroidism, unspecified; I34.1 Nonrheumatic mitral (valve) prolapse; D64.9 Anemia, unspecified; E78.00 Pure hypercholesterolemia, unspecified; E66.9 Obesity, unspecified; Z68.35 Body mass index [BMI] 35.0-35.9, adult; I11.0 Hypertensive heart disease with heart failure; I48.0 Paroxysmal atrial fibrillation; Z85.3 Personal history of malignant neoplasm of breast; E87.6 Hypokalemia; R14.0 Abdominal distension (gaseous); K21.9 Gastro-esophageal reflux disease without esophagitis
CPT/HCPCS: 0241U-QW; 36415; 71045-TC-FY; 76705-TC; 80048; 80053; 82728; 83735; 83880; 84100; 84443; 84484; 85025; 85027; 85610; 85730; 86140; 93005; 93010; 93306-TC; 93971-TC; 94640; 94660; 97116-GP; 97162-GP; 99285-25; C9399; C9803-CS; G0378; J1100; J3535; U0003; U0005

== ENCOUNTER 2022-06-10 03:35 | Inpatient (IN) | payer OTHER, MEDICARE ==
[2022-06-10] MEDS ORDERED: TERBUTALINE SULFATE 1 MG/1 ML VIAL SQ ONE ×2 (03:42→03:58)
[2022-06-10] MEDS ORDERED: RAPID SEQUENCE INTUBATION KIT NR ONE (03:42)
[2022-06-10] MEDS ORDERED: ALBUTEROL SO4 2.5/IPRATROPIUM 0.5 INH SOL 3 ML VIAL.NEB. NEB ONE ×2 (03:54→12:41)
[2022-06-10] MEDS ORDERED: NITROGLYCERIN SUBLINGUAL 1/150 0.4 MG TAB SL ONE (03:57)
[2022-06-10] MEDS ORDERED: EPINEPHrine 1:1,000 1,000 MCG/ML ML SQ ONE (03:59)
[2022-06-10] MEDS ORDERED: NITROGLYCERIN 2% OINTMENT - 1GM PACKET TD ONE (04:05)
[2022-06-10] MEDS: ALBUTEROL SO4 2.5/IPRATROPIUM 0.5 INH SOL 3 ML VIAL.NEB. NEB SCH ×5 (04:14→20:06)
[2022-06-10 04:15] LABS: BASO % 0.3 % (0-2.0); EOS % 0.4 % (0-4.5); HEMOGLOBIN 11.7 GM/dL (10.7-15.3); LYMPH % 28.6 % (8-40); MCH 29.8 pg (25.7-33.7); MCHC 32.5 g/dl (32.0-36.0); MEAN CELL VOLUME 91.5 fl (80-96); MEAN PLT VOLUME 8.3 fl (7.5-11.1); MONO % 7.3 % (3.8-10.2); NEUT % 63.4 % (42.8-82.8); PLATELET COUNT 257 10^3/uL (134-434); RBC 3.93 M/mm3 (3.60-5.2)
[2022-06-10 04:19] LABS: VENOUS BASE EXCESS -0.2 mmol/L (-2-2); VENOUS O2 SATURATION 77.5 % (70-80)
[2022-06-10 04:22] LABS: VENOUS PH 7.124 (7.310-7.410)
[2022-06-10 04:23] LABS: VENOUS PCO2 98.4 mmHg (38-52)
[2022-06-10 04:23] LABS: INR 1.59 (0.83-1.09); PROTHROMBIN TIME (PATIENT) 18.4 SEC (9.7-13.0)
[2022-06-10 04:26] LABS: ACTIVATED PTT 26.7 SECONDS (25.2-36.5)
[2022-06-10 04:44] LABS: CREATININE 0.9 mg/dL (0.55-1.3); TOT PROT 6.4 g/dl (6.4-8.2)
[2022-06-10 04:45] LABS: BILIRUBIN,TOTAL 0.7 mg/dL (0.2-1); N-TERMINAL BNP 1466.3 pg/ml (5-450)
[2022-06-10 05:04] LABS: VENOUS BASE EXCESS 4.2 mmol/L (-2-2); VENOUS O2 SATURATION 52.1 % (70-80); VENOUS PH 7.283 (7.310-7.410)
[2022-06-10 05:07] LABS: VENOUS PCO2 70.9 mmHg (38-52)
[2022-06-10 05:22] LABS: LACTIC ACID 2.2 mmol/L (0.4-2.0)
[2022-06-10] MEDS ORDERED: SODIUM CHLORIDE 250 ML IV STA ×2 (08:50→09:01)
[2022-06-10] MEDS ORDERED: FUROSEMIDE 40 MG/4 ML INJECTABLE VIAL IVPUSH ONE (08:57)
[2022-06-10] MEDS ORDERED: BUDESONIDE/FORMETEROL FUMARATE 160/4.5 mcg INHALER IH SCH (10:00)
[2022-06-10] MEDS ORDERED: methylPREDNISolone NA SUCC 40 MG/1 ML VIAL ONE ×2 (10:10→12:41)
[2022-06-10] MEDS: methylPREDNISolone NA SUCC 40 MG/1 ML VIAL IVPUSH SCH ×3 (10:13→17:50)
[2022-06-10 10:18] LABS: LACTIC ACID 3.7 mmol/L (0.4-2.0)
[2022-06-10 10:28] LABS: ARTERIAL BLD GAS O2 SATURATION 95.1 % (95-98); ARTERIAL BLOOD GAS BASE EXCESS 4.5 mmol/L (-2-2); ARTERIAL BLOOD GAS PO2 78.8 mmHg (80-100); ARTERIAL BLOOD GAS pH 7.369 (7.350-7.450)
[2022-06-10 10:30] LABS: ALLENS TEST POSITIVE
[2022-06-10 10:31] LABS: PT'S TEMP 98.6
[2022-06-10 10:32] LABS: VENT MODE S/T; VENT RATE 20
[2022-06-10] MEDS ORDERED: SODIUM CHLORIDE 1,000 ML IV SCH ×2 (11:00→17:50)
[2022-06-10 11:02] LABS: EPI CELLS >36 /uL (0-25.1); HYALINE CASTS 19 /uL (0-3.1); PH,URINE 5.5 (5.0-8.0); URINE APPEARANCE TURBID; URINE BACTERIA >9,000 /uL (0-1359); URINE BILIRUBIN NEGATIVE (NEGATIVE); URINE COLOR DK YELLOW; URINE GLUCOSE (UA) NEGATIVE (NEGATIVE); URINE KETONE TRACE (NEGATIVE); URINE LEUK ESTERASE 3+ (NEGATIVE); URINE NITRITE POSITIVE (NEGATIVE); URINE PROTEIN 3+ (NEGATIVE); URINE UROBILINOGEN 0.2 mg/dL (0.2-1.0); URINE WBC 7114 /uL (0-25.8)
[2022-06-10 11:27] LABS: URINE CRYSTALS NEGATIVE /hpf; URINE RBC 1125.9 /uL (0-23.9); YEAST NEGATIVE (NEGATIVE)
[2022-06-10] MEDS ORDERED: methylPREDNISolone NA SUCC 125 MG/2 ML VIAL IM ONE (11:49)
[2022-06-10] MEDS ORDERED: methylPREDNISolone NA SUCC 125 MG/2 ML VIAL IVPUSH ONE (12:32)
[2022-06-10] MEDS ORDERED: MUPIROCIN 2% TOPICAL OINTMENT FOR DECOLONIZATION NS SCH (13:30)
[2022-06-10 14:40] LABS: ARTERIAL BLD GAS O2 SATURATION 99.3 % (95-98); ARTERIAL BLOOD GAS BASE EXCESS 4.6 mmol/L (-2-2); ARTERIAL BLOOD GAS PO2 184.7 mmHg (80-100)
[2022-06-10 14:42] LABS: VENT MODE S/T; VENT RATE 20
[2022-06-10] MEDS ORDERED: CEFTRIAXONE 1 GM in DEXTROSE 5%-WATER 100 ML IVPB ONE (15:40)
[2022-06-10] MEDS ORDERED: AZITHROMYCIN IVPB 500 MG/250 ML BAG IVPB ONE (19:08)
[2022-06-10 19:54] LABS: LACTIC ACID 2.4 mmol/L (0.4-2.0)
[2022-06-10] MEDS: APIXABAN 5 MG TABLET PO SCH (21:34)
[2022-06-10] MEDS: BUDESONIDE/FORMETEROL FUMARATE 160/4.5 mcg INHALER IH SCH (21:46)
[2022-06-10] MEDS: CHLORHEXIDINE GLUCONATE 4% CLEANSER FOR DECOLONIZATION TP SCH (21:46)
[2022-06-10] MEDS: MUPIROCIN 2% TOPICAL OINTMENT FOR DECOLONIZATION NS SCH (21:46)
[2022-06-10] MEDS ORDERED: APIXABAN 5 MG TABLET PO SCH (22:00)
[2022-06-10] MEDS ORDERED: CHLORHEXIDINE GLUCONATE 4% CLEANSER FOR DECOLONIZATION TP SCH (22:00)
[2022-06-10] MEDS: DEXMEDETOMIDINE PREMIX 400 MCG/100 ML BAG IVPB SCH (23:40)
[2022-06-11] MEDS: methylPREDNISolone NA SUCC 40 MG/1 ML VIAL IVPUSH SCH ×3 (01:04→18:00)
[2022-06-11] MEDS: LEVOTHYROXINE NA 50 MCG TABLET (FP) PO SCH (06:29)
[2022-06-11] MEDS ORDERED: LEVOTHYROXINE NA 50 MCG TABLET (FP) PO SCH (07:00)
[2022-06-11 07:57] LABS: HEMATOCRIT 29.4 % (32.4-45.2); MCH 30.2 pg (25.7-33.7); MEAN CELL VOLUME 88.8 fl (80-96); MEAN PLT VOLUME 8.8 fl (7.5-11.1); PLATELET COUNT 186 10^3/uL (134-434); RBC 3.31 M/mm3 (3.60-5.2); WHITE BLOOD COUNT 8.3 K/mm3 (4.0-10.0)
[2022-06-11 08:25] LABS: PHOSPHOROUS 3.4 mg/dL (2.5-4.9)
[2022-06-11] MEDS: ALBUTEROL SO4 2.5/IPRATROPIUM 0.5 INH SOL 3 ML VIAL.NEB. NEB SCH ×4 (08:50→19:55)
[2022-06-11] MEDS ORDERED: VANCOMYCIN 1 GM/200 ML PREMIX BAG IVPB ONE (09:20)
[2022-06-11] MEDS: PIPERACILLIN/TAZOB 4.5 GM 4.5 GM in DEXTROSE 5%-WATER 100 ML IVPB SCH ×2 (09:44→11:25)
[2022-06-11] MEDS: BUDESONIDE/FORMETEROL FUMARATE 160/4.5 mcg INHALER IH SCH ×2 (09:46→21:17)
[2022-06-11] MEDS: APIXABAN 5 MG TABLET PO SCH ×2 (09:52→21:16)
[2022-06-11] MEDS: MUPIROCIN 2% TOPICAL OINTMENT FOR DECOLONIZATION NS SCH ×2 (09:55→21:16)
[2022-06-11 10:33] LABS: ANISOCYTOSIS 1+; MACROCYTOSIS 0; PLATELET ESTIMATE DECREASED
[2022-06-11] MEDS ORDERED: AZITHROMYCIN IVPB 500 MG in DEXTROSE 5%-WATER - 250 ML IVPB SCH (11:15)
[2022-06-11] MEDS: CEFTRIAXONE 2 GM in DEXTROSE 5%-WATER 100 ML IVPB SCH (11:43)
[2022-06-11] MEDS: AZITHROMYCIN IVPB 500 MG/250 ML BAG IVPB SCH (12:24)
[2022-06-11] MEDS: BENZOCAINE/MENTH/CETYLPYRD CL 1 EACH LOZENGE MM PRN (12:34)
[2022-06-11] MEDS: DEXMEDETOMIDINE PREMIX 400 MCG/100 ML BAG IVPB SCH (18:02)
[2022-06-11] MEDS: CHLORHEXIDINE GLUCONATE 4% CLEANSER FOR DECOLONIZATION TP SCH (21:16)
[2022-06-12] MEDS: methylPREDNISolone NA SUCC 40 MG/1 ML VIAL IVPUSH SCH ×3 (01:02→17:39)
[2022-06-12] MEDS: LEVOTHYROXINE NA 50 MCG TABLET (FP) PO SCH (06:08)
[2022-06-12] MEDS: ALBUTEROL SO4 2.5/IPRATROPIUM 0.5 INH SOL 3 ML VIAL.NEB. NEB SCH ×4 (08:00→20:30)
[2022-06-12 08:19] LABS: BASO % 0.1 % (0-2.0); HEMATOCRIT 31.7 % (32.4-45.2); HEMOGLOBIN 10.5 GM/dL (10.7-15.3); LYMPH % 8.6 % (8-40); MCH 29.6 pg (25.7-33.7); MCHC 33.2 g/dl (32.0-36.0); MEAN CELL VOLUME 89.2 fl (80-96); MONO % 3.6 % (3.8-10.2); NEUT % 87.7 % (42.8-82.8); PLATELET COUNT 262 10^3/uL (134-434); RBC 3.55 M/mm3 (3.60-5.2); RDW 14.8 % (11.6-15.6); WHITE BLOOD COUNT 9.3 K/mm3 (4.0-10.0)
[2022-06-12 08:47] LABS: CALCIUM 8.6 mg/dL (8.5-10.1)
[2022-06-12 08:48] LABS: ALBUMIN 2.6 g/dl (3.4-5.0); BLOOD UREA NITROGEN 37.7 mg/dL (7-18); MAGNESIUM 2.2 mg/dL (1.8-2.4)
[2022-06-12 08:51] LABS: CREATININE 0.9 mg/dL (0.55-1.3); PHOSPHOROUS 4.2 mg/dL (2.5-4.9)
[2022-06-12 08:52] LABS: BILIRUBIN,TOTAL 0.4 mg/dL (0.2-1)
[2022-06-12] MEDS: CEFTRIAXONE 2 GM in DEXTROSE 5%-WATER 100 ML IVPB SCH (09:12)
[2022-06-12] MEDS: AZITHROMYCIN IVPB 500 MG/250 ML BAG IVPB SCH (10:31)
[2022-06-12] MEDS: DEXMEDETOMIDINE PREMIX 400 MCG/100 ML BAG IVPB SCH (11:43)
[2022-06-12] MEDS: APIXABAN 5 MG TABLET PO SCH ×2 (11:46→21:16)
[2022-06-12] MEDS: BUDESONIDE/FORMETEROL FUMARATE 160/4.5 mcg INHALER IH SCH ×2 (11:46→21:17)
[2022-06-12] MEDS: MUPIROCIN 2% TOPICAL OINTMENT FOR DECOLONIZATION NS SCH ×2 (11:47→21:18)
[2022-06-12] MEDS ORDERED: FAMOTIDINE 20 MG/50 ML IVPB 20 MG/50 ML MG IVPB ONE (14:08)
[2022-06-12] MEDS: PANTOPRAZOLE SODIUM 40 MG VIAL IVPUSH SCH (15:56)
[2022-06-12] MEDS: ERTAPENEM SODIUM 1 GM in SODIUM CHLORIDE 50 ML IVPB SCH (17:39)
[2022-06-12] MEDS: BENZOCAINE/MENTH/CETYLPYRD CL 1 EACH LOZENGE MM PRN (17:48)
[2022-06-12] MEDS: MELATONIN 5 MG TABLETS PO PRN (21:16)
[2022-06-12] MEDS: CHLORHEXIDINE GLUCONATE 4% CLEANSER FOR DECOLONIZATION TP SCH (21:16)
[2022-06-13] MEDS: DEXMEDETOMIDINE PREMIX 400 MCG/100 ML BAG IVPB SCH (02:20)
[2022-06-13] MEDS: methylPREDNISolone NA SUCC 40 MG/1 ML VIAL IVPUSH SCH ×3 (02:20→17:57)
[2022-06-13] MEDS: LEVOTHYROXINE NA 50 MCG TABLET (FP) PO SCH (06:42)
[2022-06-13 07:29] LABS: HEMATOCRIT 31.7 % (32.4-45.2); HEMOGLOBIN 10.3 GM/dL (10.7-15.3); MCHC 32.5 g/dl (32.0-36.0); MEAN CELL VOLUME 89.2 fl (80-96); MEAN PLT VOLUME 9.5 fl (7.5-11.1); PLATELET COUNT 277 10^3/uL (134-434); RBC 3.56 M/mm3 (3.60-5.2); WHITE BLOOD COUNT 7.9 K/mm3 (4.0-10.0)
[2022-06-13] MEDS ORDERED: MIDAZOLAM HCL 5 MG/1 ML Single Dose Vial IM ONE (07:50)
[2022-06-13] MEDS ORDERED: MIDAZOLAM HCL 10 MG/10 ML VIAL IVPB ONE (07:51)
[2022-06-13] MEDS ORDERED: MIDAZOLAM HCL 5 MG/1 ML Single Dose Vial IVPUSH ONE (07:53)
[2022-06-13 07:56] LABS: CALCIUM 8.6 mg/dL (8.5-10.1)
[2022-06-13] MEDS ORDERED: MIDAZOLAM IN 0.9 % SOD.CHLORID 1 MG/1 ML PLAST..BAG ONE (07:56)
[2022-06-13 07:57] LABS: ALBUMIN 2.5 g/dl (3.4-5.0); BLOOD UREA NITROGEN 34.2 mg/dL (7-18); MAGNESIUM 2.4 mg/dL (1.8-2.4)
[2022-06-13 08:00] LABS: CREATININE 0.8 mg/dL (0.55-1.3); PHOSPHOROUS 3.4 mg/dL (2.5-4.9)
[2022-06-13] MEDS ORDERED: PROPOFOL 1,000,000 MCG/100 ML VIAL IVPB SCH (08:00)
[2022-06-13 08:01] LABS: BILIRUBIN,TOTAL 0.2 mg/dL (0.2-1); TOT PROT 5.8 g/dl (6.4-8.2)
[2022-06-13] MEDS: MIDAZOLAM IN 0.9 % SOD.CHLORID 100 MG/100 ML PLAST..BAG IVPB SCH ×2 (08:05→20:30)
[2022-06-13] MEDS ORDERED: ALBUTEROL SO4 2.5/IPRATROPIUM 0.5 INH SOL 3 ML VIAL.NEB. NEB ONE ×2 (08:09→08:11)
[2022-06-13] MEDS: ALBUTEROL SO4 2.5/IPRATROPIUM 0.5 INH SOL 3 ML VIAL.NEB. NEB SCH ×4 (08:20→20:21)
[2022-06-13 08:55] LABS: ANISOCYTOSIS 0; HELMET CELLS 0; HOWELL-JOLLY BODIES 0; MACROCYTOSIS 0; OVALOCYTE 0; ROULEAU 0; SICKELED CELLS 0; TARGET CELLS 0; TEAR DROP CELLS 0; TOXIC GRANULATION 0
[2022-06-13] MEDS ORDERED: VANCOMYCIN PREMIX 1.5 GM 1,500 MG/300 ML BAG IVPB ONE (09:14)
[2022-06-13] MEDS: AZITHROMYCIN IVPB 500 MG/250 ML BAG IVPB SCH (09:26)
[2022-06-13] MEDS: MUPIROCIN 2% TOPICAL OINTMENT FOR DECOLONIZATION NS SCH ×2 (09:26→21:30)
[2022-06-13] MEDS: PANTOPRAZOLE SODIUM 40 MG VIAL IVPUSH SCH (09:26)
[2022-06-13] MEDS: BUDESONIDE/FORMETEROL FUMARATE 160/4.5 mcg INHALER IH SCH ×2 (09:27→21:30)
[2022-06-13] MEDS: APIXABAN 5 MG TABLET PO SCH ×2 (09:36→21:30)
[2022-06-13] MEDS ORDERED: ERTAPENEM SODIUM 1 GM in SODIUM CHLORIDE 50 ML IVPB SCH (10:00)
[2022-06-13 10:34] LABS: ARTERIAL BLD GAS O2 SATURATION 97.5 % (95-98); ARTERIAL BLOOD GAS BASE EXCESS 0.4 mmol/L (-2-2); ARTERIAL BLOOD GAS PO2 101.6 mmHg (80-100)
[2022-06-13 10:38] LABS: ALLENS TEST POSITIVE
[2022-06-13 10:39] LABS: VENT MODE A/C; VENT RATE 16
[2022-06-13] MEDS: NOREPINEPHRINE BITARTRATE/D5W 8 MG/250 ML BAG IVPB SCH (12:16)
[2022-06-13] MEDS: ERTAPENEM SODIUM 1 GM in SODIUM CHLORIDE 50 ML IVPB SCH (12:16)
[2022-06-13] MEDS: CHLORHEXIDINE GLUCONATE 4% CLEANSER FOR DECOLONIZATION TP SCH (21:30)
[2022-06-14] MEDS: methylPREDNISolone NA SUCC 40 MG/1 ML VIAL IVPUSH SCH ×3 (02:21→18:07)
[2022-06-14] MEDS: DEXMEDETOMIDINE PREMIX 400 MCG/100 ML BAG IVPB SCH ×3 (04:21→21:18)
[2022-06-14] MEDS: LEVOTHYROXINE NA 50 MCG TABLET (FP) PO SCH (06:20)
[2022-06-14 07:12] LABS: ALLENS TEST POSITIVE; ARTERIAL BLD GAS O2 SATURATION 98.6 % (95-98); ARTERIAL BLOOD GAS BASE EXCESS 5.3 mmol/L (-2-2); ARTERIAL BLOOD GAS PO2 116.5 mmHg (80-100); ARTERIAL BLOOD GAS pH 7.509 (7.350-7.450); VENT MODE A/C; VENT RATE 16
[2022-06-14 08:34] LABS: HEMATOCRIT 29.5 % (32.4-45.2); HEMOGLOBIN 9.7 GM/dL (10.7-15.3); MCH 29.2 pg (25.7-33.7); MEAN CELL VOLUME 88.4 fl (80-96); MEAN PLT VOLUME 8.8 fl (7.5-11.1); PLATELET COUNT 286 10^3/uL (134-434); RBC 3.33 M/mm3 (3.60-5.2); WHITE BLOOD COUNT 12.5 K/mm3 (4.0-10.0)
[2022-06-14] MEDS: ERTAPENEM SODIUM 1 GM in SODIUM CHLORIDE 50 ML IVPB SCH (09:12)
[2022-06-14] MEDS: ALBUTEROL SO4 2.5/IPRATROPIUM 0.5 INH SOL 3 ML VIAL.NEB. NEB SCH ×4 (09:20→20:30)
[2022-06-14 09:22] LABS: ALBUMIN 2.4 g/dl (3.4-5.0); CALCIUM 8.4 mg/dL (8.5-10.1)
[2022-06-14 09:23] LABS: BLOOD UREA NITROGEN 28.3 mg/dL (7-18)
[2022-06-14 09:25] LABS: CREATININE 0.7 mg/dL (0.55-1.3)
[2022-06-14 09:26] LABS: BILIRUBIN,TOTAL 0.4 mg/dL (0.2-1); TOT PROT 5.2 g/dl (6.4-8.2)
[2022-06-14] MEDS: APIXABAN 5 MG TABLET PO SCH ×2 (09:31→21:17)
[2022-06-14] MEDS: PANTOPRAZOLE SODIUM 40 MG VIAL IVPUSH SCH (09:31)
[2022-06-14] MEDS: BUDESONIDE/FORMETEROL FUMARATE 160/4.5 mcg INHALER IH SCH ×2 (09:33→21:18)
[2022-06-14] MEDS: MUPIROCIN 2% TOPICAL OINTMENT FOR DECOLONIZATION NS SCH ×2 (09:34→21:17)
[2022-06-14 09:38] LABS: ANISOCYTOSIS 0; HELMET CELLS 0; HOWELL-JOLLY BODIES 0; MACROCYTOSIS 0; OVALOCYTE 0; ROULEAU 0; SICKELED CELLS 0; TARGET CELLS 0; TEAR DROP CELLS 0; TOXIC GRANULATION 0
[2022-06-14] MEDS: AZITHROMYCIN IVPB 500 MG/250 ML BAG IVPB SCH (09:43)
[2022-06-14] MEDS: MIDAZOLAM IN 0.9 % SOD.CHLORID 100 MG/100 ML PLAST..BAG IVPB SCH (21:13)
[2022-06-14] MEDS: NOREPINEPHRINE BITARTRATE/D5W 8 MG/250 ML BAG IVPB SCH (21:16)
[2022-06-14] MEDS: CHLORHEXIDINE GLUCONATE 4% CLEANSER FOR DECOLONIZATION TP SCH (21:18)
[2022-06-14] MEDS: MELATONIN 5 MG TABLETS PO PRN (21:19)
[2022-06-15] MEDS: DEXMEDETOMIDINE PREMIX 400 MCG/100 ML BAG IVPB SCH ×4 (01:48→20:40)
[2022-06-15] MEDS: methylPREDNISolone NA SUCC 40 MG/1 ML VIAL IVPUSH SCH ×4 (01:49→21:14)
[2022-06-15] MEDS: LEVOTHYROXINE NA 50 MCG TABLET (FP) PO SCH (06:09)
[2022-06-15 06:35] LABS: ARTERIAL BLD GAS O2 SATURATION 82.1 % (95-98); ARTERIAL BLOOD GAS BASE EXCESS 8.5 mmol/L (-2-2); ARTERIAL BLOOD GAS PO2 42.2 mmHg (80-100); ARTERIAL BLOOD GAS pH 7.503 (7.350-7.450)
[2022-06-15 06:46] LABS: ALLENS TEST POSITIVE
[2022-06-15 06:47] LABS: VENT MODE A/C; VENT RATE 14
[2022-06-15] MEDS: ALBUTEROL SO4 2.5/IPRATROPIUM 0.5 INH SOL 3 ML VIAL.NEB. NEB SCH ×3 (07:50→16:34)
[2022-06-15 08:10] LABS: HEMATOCRIT 30.3 % (32.4-45.2); HEMOGLOBIN 9.9 GM/dL (10.7-15.3); MCHC 32.8 g/dl (32.0-36.0); MEAN CELL VOLUME 88.6 fl (80-96); PLATELET COUNT 257 10^3/uL (134-434); RBC 3.42 M/mm3 (3.60-5.2); RDW 15.6 % (11.6-15.6); WHITE BLOOD COUNT 9.6 K/mm3 (4.0-10.0)
[2022-06-15 08:19] LABS: CALCIUM 8.5 mg/dL (8.5-10.1)
[2022-06-15 08:20] LABS: ALBUMIN 2.2 g/dl (3.4-5.0); BLOOD UREA NITROGEN 37.9 mg/dL (7-18); MAGNESIUM 2.6 mg/dL (1.8-2.4)
[2022-06-15 08:23] LABS: CREATININE 0.7 mg/dL (0.55-1.3); PHOSPHOROUS 3.2 mg/dL (2.5-4.9)
[2022-06-15 08:24] LABS: BILIRUBIN,TOTAL 0.4 mg/dL (0.2-1); TOT PROT 5.2 g/dl (6.4-8.2)
[2022-06-15 10:00] LABS: ANISOCYTOSIS 2+; MACROCYTOSIS 0; TEAR DROP CELLS 2+
[2022-06-15] MEDS: APIXABAN 5 MG TABLET PO SCH ×2 (10:18→21:15)
[2022-06-15] MEDS: BUDESONIDE/FORMETEROL FUMARATE 160/4.5 mcg INHALER IH SCH ×2 (10:21→21:07)
[2022-06-15] MEDS: MUPIROCIN 2% TOPICAL OINTMENT FOR DECOLONIZATION NS SCH (10:24)
[2022-06-15] MEDS: PANTOPRAZOLE SODIUM 40 MG VIAL IVPUSH SCH (10:33)
[2022-06-15] MEDS: ERTAPENEM SODIUM 1 GM in SODIUM CHLORIDE 50 ML IVPB SCH (11:42)
[2022-06-15] MEDS: CHLORHEXIDINE GLUCONATE 4% CLEANSER FOR DECOLONIZATION TP SCH (21:15)
[2022-06-15] MEDS: MELATONIN 5 MG TABLETS PO PRN (21:15)
[2022-06-16] MEDS: DEXMEDETOMIDINE PREMIX 400 MCG/100 ML BAG IVPB SCH ×4 (05:12→16:16)
[2022-06-16] MEDS: LEVOTHYROXINE NA 50 MCG TABLET (FP) PO SCH (06:11)
[2022-06-16 06:43] LABS: ARTERIAL BLD GAS O2 SATURATION 97.6 % (95-98); ARTERIAL BLOOD GAS PO2 94.6 mmHg (80-100); ARTERIAL BLOOD GAS pH 7.466 (7.350-7.450)
[2022-06-16 06:46] LABS: ALLENS TEST POSITIVE; VENT MODE A/C; VENT RATE 14
[2022-06-16 07:44] LABS: HEMATOCRIT 33.4 % (32.4-45.2); HEMOGLOBIN 11.1 GM/dL (10.7-15.3); MCH 29.9 pg (25.7-33.7); MCHC 33.2 g/dl (32.0-36.0); MEAN CELL VOLUME 90.1 fl (80-96); MEAN PLT VOLUME 8.7 fl (7.5-11.1); PLATELET COUNT 253 10^3/uL (134-434); RDW 15.6 % (11.6-15.6); WHITE BLOOD COUNT 9.8 K/mm3 (4.0-10.0)
[2022-06-16 08:08] LABS: BLOOD UREA NITROGEN 36.8 mg/dL (7-18); CALCIUM 8.3 mg/dL (8.5-10.1)
[2022-06-16 08:09] LABS: ALBUMIN 2.3 g/dl (3.4-5.0); MAGNESIUM 2.2 mg/dL (1.8-2.4)
[2022-06-16 08:12] LABS: CREATININE 0.6 mg/dL (0.55-1.3); PHOSPHOROUS 3.3 mg/dL (2.5-4.9)
[2022-06-16 08:14] LABS: BILIRUBIN,TOTAL 0.4 mg/dL (0.2-1); TOT PROT 5.4 g/dl (6.4-8.2)
[2022-06-16 08:45] LABS: ANISOCYTOSIS 3+; MACROCYTOSIS 0
[2022-06-16] MEDS: PANTOPRAZOLE SODIUM 40 MG VIAL IVPUSH SCH (09:07)
[2022-06-16] MEDS: methylPREDNISolone NA SUCC 40 MG/1 ML VIAL IVPUSH SCH ×2 (09:07→22:03)
[2022-06-16] MEDS: APIXABAN 5 MG TABLET PO SCH ×2 (09:14→21:14)
[2022-06-16] MEDS: ERTAPENEM SODIUM 1 GM in SODIUM CHLORIDE 50 ML IVPB SCH (10:48)
[2022-06-16] MEDS: BUDESONIDE/FORMETEROL FUMARATE 160/4.5 mcg INHALER IH SCH ×2 (10:49→22:03)
[2022-06-16] MEDS: CHLORHEXIDINE GLUCONATE 4% CLEANSER FOR DECOLONIZATION TP SCH (22:03)
[2022-06-17] MEDS: BENZOCAINE/MENTH/CETYLPYRD CL 1 EACH LOZENGE MM PRN (00:15)
[2022-06-17 06:31] LABS: ARTERIAL BLD GAS O2 SATURATION 97.4 % (95-98); ARTERIAL BLOOD GAS BASE EXCESS 2.6 mmol/L (-2-2); ARTERIAL BLOOD GAS pH 7.435 (7.350-7.450)
[2022-06-17] MEDS: LEVOTHYROXINE NA 50 MCG TABLET (FP) PO SCH (06:44)
[2022-06-17] MEDS: DEXMEDETOMIDINE PREMIX 400 MCG/100 ML BAG IVPB SCH ×2 (08:00→13:45)
[2022-06-17] MEDS: APIXABAN 5 MG TABLET PO SCH ×2 (09:59→21:58)
[2022-06-17] MEDS: PANTOPRAZOLE SODIUM 40 MG VIAL IVPUSH SCH (09:59)
[2022-06-17] MEDS: BUDESONIDE/FORMETEROL FUMARATE 160/4.5 mcg INHALER IH SCH ×2 (09:59→21:57)
[2022-06-17] MEDS: ERTAPENEM SODIUM 1 GM in SODIUM CHLORIDE 50 ML IVPB SCH (09:59)
[2022-06-17] MEDS: methylPREDNISolone NA SUCC 40 MG/1 ML VIAL IVPUSH SCH ×2 (09:59→23:22)
[2022-06-17] MEDS ORDERED: ALBUTEROL SO4 2.5/IPRATROPIUM 0.5 INH SOL 3 ML VIAL.NEB. NEB ONE (10:16)
[2022-06-17] MEDS: ALBUTEROL SO4 2.5/IPRATROPIUM 0.5 INH SOL 3 ML VIAL.NEB. NEB SCH ×3 (13:29→20:24)
[2022-06-17] MEDS ORDERED: FUROSEMIDE 40 MG/4 ML INJECTABLE VIAL IVPUSH ONE (13:32)
[2022-06-17 16:24] LABS: BLOOD UREA NITROGEN 30.1 mg/dL (7-18); CALCIUM 7.8 mg/dL (8.5-10.1)
[2022-06-17 16:25] LABS: ALBUMIN 2.3 g/dl (3.4-5.0)
[2022-06-17 16:27] VITALS: BMI 32.3
[2022-06-17 16:29] LABS: BILIRUBIN,TOTAL 0.6 mg/dL (0.2-1); CREATININE 0.6 mg/dL (0.55-1.3); TOT PROT 5.3 g/dl (6.4-8.2)
[2022-06-17 16:39] LABS: BASO % 0.2 % (0-2.0); HEMATOCRIT 36.5 % (32.4-45.2); HEMOGLOBIN 11.6 GM/dL (10.7-15.3); LYMPH % 11.8 % (8-40); MCH 28.4 pg (25.7-33.7); MCHC 31.7 g/dl (32.0-36.0); MEAN CELL VOLUME 89.7 fl (80-96); MEAN PLT VOLUME 9.2 fl (7.5-11.1); MONO % 5.1 % (3.8-10.2); NEUT % 82.9 % (42.8-82.8); PLATELET COUNT 268 10^3/uL (134-434); RBC 4.07 M/mm3 (3.60-5.2); RDW 15.2 % (11.6-15.6); WHITE BLOOD COUNT 11.3 K/mm3 (4.0-10.0)
[2022-06-17 17:06] LABS: ANISOCYTOSIS 1+; MACROCYTOSIS 1+
[2022-06-17] MEDS: MELATONIN 5 MG TABLETS PO PRN (21:57)
[2022-06-17] MEDS: CHLORHEXIDINE GLUCONATE 4% CLEANSER FOR DECOLONIZATION TP SCH (21:57)
[2022-06-18] MEDS ORDERED: DEXMEDETOMIDINE PREMIX 400 MCG/100 ML BAG IVPB ONE (01:58)
[2022-06-18] MEDS: DEXMEDETOMIDINE PREMIX 400 MCG/100 ML BAG IVPB SCH (02:03)
[2022-06-18] MEDS: LEVOTHYROXINE NA 50 MCG TABLET (FP) PO SCH (06:11)
[2022-06-18 06:29] LABS: ARTERIAL BLD GAS O2 SATURATION 97.3 % (95-98); ARTERIAL BLOOD GAS BASE EXCESS 7.3 mmol/L (-2-2); ARTERIAL BLOOD GAS PO2 90.7 mmHg (80-100); ARTERIAL BLOOD GAS pH 7.474 (7.350-7.450)
[2022-06-18 06:44] LABS: VENT MODE HFNC
[2022-06-18] MEDS: ALBUTEROL SO4 2.5/IPRATROPIUM 0.5 INH SOL 3 ML VIAL.NEB. NEB SCH ×4 (08:35→20:05)
[2022-06-18] MEDS: APIXABAN 5 MG TABLET PO SCH ×2 (10:59→21:22)
[2022-06-18] MEDS: PANTOPRAZOLE SODIUM 40 MG VIAL IVPUSH SCH (10:59)
[2022-06-18] MEDS: ERTAPENEM SODIUM 1 GM in SODIUM CHLORIDE 50 ML IVPB SCH (10:59)
[2022-06-18] MEDS: methylPREDNISolone NA SUCC 40 MG/1 ML VIAL IVPUSH SCH (11:00)
[2022-06-18] MEDS: BUDESONIDE/FORMETEROL FUMARATE 160/4.5 mcg INHALER IH SCH ×2 (11:00→21:23)
[2022-06-18] MEDS ORDERED: NYSTATIN 500,000 UNITS/5 ML SUSPENSION PO ONE (12:57)
[2022-06-18 13:10] LABS: HEMATOCRIT 38.8 % (32.4-45.2); HEMOGLOBIN 12.7 GM/dL (10.7-15.3); MCH 29.1 pg (25.7-33.7); MCHC 32.7 g/dl (32.0-36.0); MEAN CELL VOLUME 89.1 fl (80-96); MEAN PLT VOLUME 8.3 fl (7.5-11.1); PLATELET COUNT 313 10^3/uL (134-434); RBC 4.35 M/mm3 (3.60-5.2); RDW 14.9 % (11.6-15.6)
[2022-06-18 13:58] LABS: BLOOD UREA NITROGEN 32.8 mg/dL (7-18)
[2022-06-18 14:01] LABS: CREATININE 0.6 mg/dL (0.55-1.3); PHOSPHOROUS 3.5 mg/dL (2.5-4.9)
[2022-06-18 14:02] LABS: TOT PROT 6.2 g/dl (6.4-8.2)
[2022-06-18 14:03] LABS: BILIRUBIN,TOTAL 0.8 mg/dL (0.2-1)
[2022-06-18 14:05] LABS: ALBUMIN 2.8 g/dl (3.4-5.0)
[2022-06-18 14:26] LABS: ANISOCYTOSIS 0; MACROCYTOSIS 0
[2022-06-18] MEDS: CHLORHEXIDINE GLUCONATE 4% CLEANSER FOR DECOLONIZATION TP SCH (21:22)
[2022-06-18] MEDS: MELATONIN 5 MG TABLETS PO PRN (21:22)
[2022-06-19] MEDS ORDERED: BENZOCAINE/MENTH/CETYLPYRD CL 1 EACH LOZENGE MM PRN (00:17)
[2022-06-19] MEDS: LEVOTHYROXINE NA 50 MCG TABLET (FP) PO SCH (06:32)
[2022-06-19] MEDS: ALBUTEROL SO4 2.5/IPRATROPIUM 0.5 INH SOL 3 ML VIAL.NEB. NEB SCH ×4 (08:45→19:52)
[2022-06-19 08:47] LABS: HEMATOCRIT 37.4 % (32.4-45.2); HEMOGLOBIN 12.1 GM/dL (10.7-15.3); MCH 28.9 pg (25.7-33.7); MCHC 32.4 g/dl (32.0-36.0); MEAN CELL VOLUME 89.4 fl (80-96); MEAN PLT VOLUME 8.6 fl (7.5-11.1); PLATELET COUNT 292 10^3/uL (134-434); RBC 4.19 M/mm3 (3.60-5.2); RDW 15.5 % (11.6-15.6); WHITE BLOOD COUNT 21.6 K/mm3 (4.0-10.0)
[2022-06-19 09:07] LABS: ALBUMIN 2.4 g/dl (3.4-5.0); BLOOD UREA NITROGEN 24.3 mg/dL (7-18); CALCIUM 8.1 mg/dL (8.5-10.1)
[2022-06-19 09:11] LABS: BILIRUBIN,TOTAL 0.7 mg/dL (0.2-1); CREATININE 0.5 mg/dL (0.55-1.3); PHOSPHOROUS 2.8 mg/dL (2.5-4.9); TOT PROT 5.4 g/dl (6.4-8.2)
[2022-06-19] MEDS: methylPREDNISolone NA SUCC 40 MG/1 ML VIAL IVPUSH SCH (09:57)
[2022-06-19] MEDS: APIXABAN 5 MG TABLET PO SCH ×2 (09:57→22:23)
[2022-06-19] MEDS: PANTOPRAZOLE SODIUM 40 MG VIAL IVPUSH SCH (09:57)
[2022-06-19] MEDS ORDERED: methylPREDNISolone NA SUCC 40 MG/1 ML VIAL IVPUSH SCH (10:00)
[2022-06-19] MEDS: BUDESONIDE/FORMETEROL FUMARATE 160/4.5 mcg INHALER IH SCH ×2 (10:06→22:24)
[2022-06-19 12:08] LABS: ANISOCYTOSIS 0; MACROCYTOSIS 0
[2022-06-19] MEDS ORDERED: CHLORHEXIDINE GLUCONATE 4% CLEANSER FOR DECOLONIZATION TP SCH (22:00)
[2022-06-19] MEDS: MELATONIN 5 MG TABLETS PO PRN (22:23)
[2022-06-20] MEDS: LEVOTHYROXINE NA 50 MCG TABLET (FP) PO SCH (06:30)
[2022-06-20 07:55] LABS: HEMATOCRIT 34.2 % (32.4-45.2); HEMOGLOBIN 11.4 GM/dL (10.7-15.3); MCH 29.4 pg (25.7-33.7); MCHC 33.2 g/dl (32.0-36.0); MEAN CELL VOLUME 88.7 fl (80-96); MEAN PLT VOLUME 8.4 fl (7.5-11.1); PLATELET COUNT 238 10^3/uL (134-434); RBC 3.86 M/mm3 (3.60-5.2); RDW 15.8 % (11.6-15.6)
[2022-06-20] MEDS: ALBUTEROL SO4 2.5/IPRATROPIUM 0.5 INH SOL 3 ML VIAL.NEB. NEB SCH ×4 (08:05→21:16)
[2022-06-20 08:14] LABS: ALBUMIN 2.4 g/dl (3.4-5.0)
[2022-06-20 08:15] LABS: CALCIUM 8.2 mg/dL (8.5-10.1)
[2022-06-20 08:16] LABS: CREATININE 0.5 mg/dL (0.55-1.3); MAGNESIUM 2.1 mg/dL (1.8-2.4)
[2022-06-20 08:21] LABS: TOT PROT 5.2 g/dl (6.4-8.2)
[2022-06-20 08:23] LABS: BILIRUBIN,TOTAL 0.7 mg/dL (0.2-1)
[2022-06-20 10:05] LABS: ANISOCYTOSIS 0; MACROCYTOSIS 0
[2022-06-20] MEDS: BUDESONIDE/FORMETEROL FUMARATE 160/4.5 mcg INHALER IH SCH ×2 (10:25→21:53)
[2022-06-20] MEDS: methylPREDNISolone NA SUCC 40 MG/1 ML VIAL IVPUSH SCH (10:25)
[2022-06-20] MEDS: APIXABAN 5 MG TABLET PO SCH ×2 (10:25→21:53)
[2022-06-20] MEDS: PANTOPRAZOLE SODIUM 40 MG VIAL IVPUSH SCH (10:25)
[2022-06-20] MEDS ORDERED: FUROSEMIDE 40 MG/4 ML INJECTABLE VIAL ONE (13:19)
[2022-06-20] MEDS ORDERED: FUROSEMIDE 40 MG/4 ML INJECTABLE VIAL IVPUSH ONE (14:00)
[2022-06-20] MEDS ORDERED: IBUPROFEN 800 MG/8 ML IJ IVPB PRN (14:39)
[2022-06-20] MEDS ORDERED: NAPH,MB-DB/K PH,MBDB POWDER PACKET PO ONE (14:40)
[2022-06-20 15:54] LABS: HEMATOCRIT 38.5 % (32.4-45.2); HEMOGLOBIN 12.6 GM/dL (10.7-15.3); MCH 29.3 pg (25.7-33.7); MCHC 32.7 g/dl (32.0-36.0); MEAN CELL VOLUME 89.7 fl (80-96); MEAN PLT VOLUME 8.6 fl (7.5-11.1); PLATELET COUNT 264 10^3/uL (134-434); WHITE BLOOD COUNT 21.4 K/mm3 (4.0-10.0)
[2022-06-20 16:11] LABS: CHLORIDE 102 mmol/L (98-107); SODIUM 141 mmol/L (136-145)
[2022-06-20 16:13] LABS: CALCIUM 8.6 mg/dL (8.5-10.1)
[2022-06-20 16:14] LABS: ALBUMIN 2.8 g/dl (3.4-5.0); ANION GAP 10 MMOL/L (8-16); BLOOD UREA NITROGEN 25.6 mg/dL (7-18); CO2 30 mmol/L (21-32); GLUCOSE,RANDOM 180 mg/dL (74-106)
[2022-06-20 16:17] LABS: CREATININE 0.9 mg/dL (0.55-1.3); PHOSPHOROUS 2.2 mg/dL (2.5-4.9); SGOT/AST 15 U/L (15-37); SGPT/ALT 48 U/L (13-61)
[2022-06-20 16:18] LABS: BILIRUBIN,TOTAL 0.5 mg/dL (0.2-1); TOT PROT 6.2 g/dl (6.4-8.2)
[2022-06-20 16:20] LABS: ALK PHOS 55 U/L (45-117)
[2022-06-20] MEDS: MEROPENEM 500 MG in DEXTROSE 5%-WATER 100 ML IVPB SCH (17:27)
[2022-06-20] MEDS: NAPH,MB-DB/K PH,MBDB POWDER PACKET PO SCH (21:53)
[2022-06-21] MEDS ORDERED: MEROPENEM 500 MG VIAL (RESTRICTED TO ID) IVPB ONE (01:18)
[2022-06-21] MEDS: MEROPENEM 500 MG in DEXTROSE 5%-WATER 100 ML IVPB SCH ×3 (01:26→17:04)
[2022-06-21] MEDS: NAPH,MB-DB/K PH,MBDB POWDER PACKET PO SCH ×3 (05:30→21:13)
[2022-06-21] MEDS: LEVOTHYROXINE NA 50 MCG TABLET (FP) PO SCH (06:20)
[2022-06-21] MEDS: ALBUTEROL SO4 2.5/IPRATROPIUM 0.5 INH SOL 3 ML VIAL.NEB. NEB SCH ×4 (07:25→19:46)
[2022-06-21 08:24] LABS: HEMATOCRIT 33.2 % (32.4-45.2); HEMOGLOBIN 10.7 GM/dL (10.7-15.3); MCH 28.7 pg (25.7-33.7); MCHC 32.2 g/dl (32.0-36.0); MEAN CELL VOLUME 89.2 fl (80-96); MEAN PLT VOLUME 8.9 fl (7.5-11.1); PLATELET COUNT 212 10^3/uL (134-434); RBC 3.72 M/mm3 (3.60-5.2); RDW 15.4 % (11.6-15.6); WHITE BLOOD COUNT 15.2 K/mm3 (4.0-10.0)
[2022-06-21 08:37] LABS: ALBUMIN 2.3 g/dl (3.4-5.0); CALCIUM 7.8 mg/dL (8.5-10.1)
[2022-06-21 08:38] LABS: BLOOD UREA NITROGEN 23.6 mg/dL (7-18); MAGNESIUM 2.1 mg/dL (1.8-2.4)
[2022-06-21 08:41] LABS: CREATININE 0.4 mg/dL (0.55-1.3); PHOSPHOROUS 2.7 mg/dL (2.5-4.9)
[2022-06-21 08:43] LABS: BILIRUBIN,TOTAL 0.8 mg/dL (0.2-1)
[2022-06-21 10:21] LABS: ANISOCYTOSIS 0; MACROCYTOSIS 0
[2022-06-21] MEDS: BUDESONIDE/FORMETEROL FUMARATE 160/4.5 mcg INHALER IH SCH ×2 (10:31→21:13)
[2022-06-21] MEDS: methylPREDNISolone NA SUCC 40 MG/1 ML VIAL IVPUSH SCH (10:31)
[2022-06-21] MEDS: APIXABAN 5 MG TABLET PO SCH ×2 (10:31→21:13)
[2022-06-21] MEDS: PANTOPRAZOLE SODIUM 40 MG VIAL IVPUSH SCH (10:31)
[2022-06-21] MEDS: MELATONIN 5 MG TABLETS PO PRN (21:13)
[2022-06-22] MEDS: MEROPENEM 500 MG in DEXTROSE 5%-WATER 100 ML IVPB SCH ×3 (01:05→18:18)
[2022-06-22] MEDS: NAPH,MB-DB/K PH,MBDB POWDER PACKET PO SCH ×3 (06:05→21:13)
[2022-06-22] MEDS: LEVOTHYROXINE NA 50 MCG TABLET (FP) PO SCH (06:05)
[2022-06-22] MEDS: ALBUTEROL SO4 2.5/IPRATROPIUM 0.5 INH SOL 3 ML VIAL.NEB. NEB SCH ×4 (07:53→20:10)
[2022-06-22] MEDS: methylPREDNISolone NA SUCC 40 MG/1 ML VIAL IVPUSH SCH (09:35)
[2022-06-22] MEDS: APIXABAN 5 MG TABLET PO SCH ×2 (09:36→21:13)
[2022-06-22] MEDS: PANTOPRAZOLE SODIUM 40 MG VIAL IVPUSH SCH (09:36)
[2022-06-22] MEDS: BUDESONIDE/FORMETEROL FUMARATE 160/4.5 mcg INHALER IH SCH ×2 (09:36→21:13)
[2022-06-22] MEDS: ACETAMINOPHEN 500 MG TABLET (FP) PO SCH ×3 (13:59→22:26)
[2022-06-22 17:12] LABS: BASO % 0.1 % (0-2.0); HEMATOCRIT 34.6 % (32.4-45.2); HEMOGLOBIN 11.1 GM/dL (10.7-15.3); LYMPH % 5.9 % (8-40); MCH 28.8 pg (25.7-33.7); MEAN CELL VOLUME 90.3 fl (80-96); MEAN PLT VOLUME 8.7 fl (7.5-11.1); MONO % 2.9 % (3.8-10.2); NEUT % 91.1 % (42.8-82.8); PLATELET COUNT 181 10^3/uL (134-434); RBC 3.84 M/mm3 (3.60-5.2); RDW 15.6 % (11.6-15.6)
[2022-06-22 17:32] LABS: ALBUMIN 2.4 g/dl (3.4-5.0); BLOOD UREA NITROGEN 22.1 mg/dL (7-18); CALCIUM 8.4 mg/dL (8.5-10.1); MAGNESIUM 1.8 mg/dL (1.8-2.4)
[2022-06-22 17:35] LABS: CREATININE 0.7 mg/dL (0.55-1.3)
[2022-06-22 17:37] LABS: BILIRUBIN,TOTAL 0.4 mg/dL (0.2-1); TOT PROT 5.2 g/dl (6.4-8.2)
[2022-06-22 17:48] LABS: ANISOCYTOSIS 1+; MACROCYTOSIS 0
[2022-06-22] MEDS: MELATONIN 5 MG TABLETS PO PRN (21:13)
[2022-06-22] MEDS: TETRAHYDROZOLINE HCL EYE DROPS OU PRN (21:13)
[2022-06-23] MEDS: MEROPENEM 500 MG in DEXTROSE 5%-WATER 100 ML IVPB SCH ×2 (01:06→09:40)
[2022-06-23] MEDS: TETRAHYDROZOLINE HCL EYE DROPS OU PRN (06:00)
[2022-06-23] MEDS: NAPH,MB-DB/K PH,MBDB POWDER PACKET PO SCH ×3 (06:07→22:09)
[2022-06-23] MEDS: ACETAMINOPHEN 500 MG TABLET (FP) PO SCH ×4 (06:07→22:10)
[2022-06-23] MEDS: LEVOTHYROXINE NA 50 MCG TABLET (FP) PO SCH (06:07)
[2022-06-23] MEDS: ALBUTEROL SO4 2.5/IPRATROPIUM 0.5 INH SOL 3 ML VIAL.NEB. NEB SCH ×4 (07:34→20:40)
[2022-06-23] MEDS: PANTOPRAZOLE SODIUM 40 MG VIAL IVPUSH SCH (09:40)
[2022-06-23] MEDS: APIXABAN 5 MG TABLET PO SCH ×2 (09:40→22:10)
[2022-06-23] MEDS: BUDESONIDE/FORMETEROL FUMARATE 160/4.5 mcg INHALER IH SCH ×2 (09:41→22:10)
[2022-06-23] MEDS: methylPREDNISolone NA SUCC 40 MG/1 ML VIAL IVPUSH SCH (09:41)
[2022-06-24] MEDS: ACETAMINOPHEN 500 MG TABLET (FP) PO SCH ×4 (06:15→23:00)
[2022-06-24] MEDS: NAPH,MB-DB/K PH,MBDB POWDER PACKET PO SCH ×3 (06:15→21:46)
[2022-06-24] MEDS: LEVOTHYROXINE NA 50 MCG TABLET (FP) PO SCH (06:15)
[2022-06-24] MEDS: ALBUTEROL SO4 2.5/IPRATROPIUM 0.5 INH SOL 3 ML VIAL.NEB. NEB SCH ×4 (08:20→20:12)
[2022-06-24] MEDS: APIXABAN 5 MG TABLET PO SCH ×2 (09:59→21:46)
[2022-06-24] MEDS: PANTOPRAZOLE SODIUM 40 MG VIAL IVPUSH SCH (09:59)
[2022-06-24] MEDS: methylPREDNISolone NA SUCC 40 MG/1 ML VIAL IVPUSH SCH (09:59)
[2022-06-24] MEDS: BUDESONIDE/FORMETEROL FUMARATE 160/4.5 mcg INHALER IH SCH ×2 (10:00→21:47)
[2022-06-24] MEDS: MELATONIN 5 MG TABLETS PO PRN (21:47)
[2022-06-24] MEDS: TETRAHYDROZOLINE HCL EYE DROPS OU PRN (21:53)
[2022-06-25] MEDS: ACETAMINOPHEN 500 MG TABLET (FP) PO SCH ×4 (05:56→22:44)
[2022-06-25] MEDS: NAPH,MB-DB/K PH,MBDB POWDER PACKET PO SCH ×3 (05:56→21:27)
[2022-06-25] MEDS: LEVOTHYROXINE NA 50 MCG TABLET (FP) PO SCH (06:00)
[2022-06-25] MEDS: ALBUTEROL SO4 2.5/IPRATROPIUM 0.5 INH SOL 3 ML VIAL.NEB. NEB SCH ×4 (07:45→19:32)
[2022-06-25] MEDS: PANTOPRAZOLE SODIUM 40 MG VIAL IVPUSH SCH (10:08)
[2022-06-25] MEDS: methylPREDNISolone NA SUCC 40 MG/1 ML VIAL IVPUSH SCH (10:09)
[2022-06-25] MEDS: APIXABAN 5 MG TABLET PO SCH ×2 (10:09→21:27)
[2022-06-25] MEDS: BUDESONIDE/FORMETEROL FUMARATE 160/4.5 mcg INHALER IH SCH ×2 (10:10→21:27)
[2022-06-26] MEDS: ACETAMINOPHEN 500 MG TABLET (FP) PO SCH ×4 (05:51→22:33)
[2022-06-26] MEDS: NAPH,MB-DB/K PH,MBDB POWDER PACKET PO SCH (05:51)
[2022-06-26] MEDS: LEVOTHYROXINE NA 50 MCG TABLET (FP) PO SCH (06:23)
[2022-06-26] MEDS: ALBUTEROL SO4 2.5/IPRATROPIUM 0.5 INH SOL 3 ML VIAL.NEB. NEB SCH ×4 (07:20→20:30)
[2022-06-26] MEDS: methylPREDNISolone NA SUCC 40 MG/1 ML VIAL IVPUSH SCH (10:16)
[2022-06-26] MEDS: APIXABAN 5 MG TABLET PO SCH ×2 (10:17→21:39)
[2022-06-26] MEDS: PANTOPRAZOLE SODIUM 40 MG VIAL IVPUSH SCH (10:17)
[2022-06-26] MEDS: LOSARTAN POTASSIUM 50 MG TABLET PO SCH (10:17)
[2022-06-26] MEDS: BUDESONIDE/FORMETEROL FUMARATE 160/4.5 mcg INHALER IH SCH ×2 (10:19→21:46)
[2022-06-26 12:36] LABS: BASO % 0.2 % (0-2.0); EOS % 0.1 % (0-4.5); LYMPH % 9.9 % (8-40); MCHC 33.5 g/dl (32.0-36.0); MEAN CELL VOLUME 89.7 fl (80-96); MONO % 5.9 % (3.8-10.2); NEUT % 83.9 % (42.8-82.8); PLATELET COUNT 127 10^3/uL (134-434); RBC 3.68 M/mm3 (3.60-5.2); RDW 16.4 % (11.6-15.6)
[2022-06-26 12:55] LABS: ANISOCYTOSIS 0; HELMET CELLS 0; HOWELL-JOLLY BODIES 0; MACROCYTOSIS 0; OVALOCYTE 0; ROULEAU 0; SICKELED CELLS 0; TARGET CELLS 0; TEAR DROP CELLS 0; TOXIC GRANULATION 0
[2022-06-26 12:56] LABS: ALBUMIN 2.5 g/dl (3.4-5.0); BLOOD UREA NITROGEN 16.2 mg/dL (7-18); CALCIUM 8.3 mg/dL (8.5-10.1); MAGNESIUM 1.6 mg/dL (1.8-2.4)
[2022-06-26 12:59] LABS: CREATININE 0.4 mg/dL (0.55-1.3); PHOSPHOROUS 2.8 mg/dL (2.5-4.9)
[2022-06-26 13:01] LABS: BILIRUBIN,TOTAL 0.7 mg/dL (0.2-1); TOT PROT 5.2 g/dl (6.4-8.2)
[2022-06-26] MEDS: MELATONIN 5 MG TABLETS PO PRN (21:39)
[2022-06-26] MEDS ORDERED: ROSUVASTATIN CA 20 MG TABLET PO SCH (22:00)
[2022-06-27] MEDS: ACETAMINOPHEN 500 MG TABLET (FP) PO SCH ×3 (05:14→18:06)
[2022-06-27] MEDS: LEVOTHYROXINE NA 50 MCG TABLET (FP) PO SCH (06:14)
[2022-06-27] MEDS ORDERED: MAGNESIUM OXIDE 400 MG TABLET (FP) PO ONE (07:09)
[2022-06-27] MEDS: ALBUTEROL SO4 2.5/IPRATROPIUM 0.5 INH SOL 3 ML VIAL.NEB. NEB SCH ×3 (07:25→15:37)
[2022-06-27] MEDS ORDERED: predniSONE 10 MG TABLET (UD) PO SCH ×2 (10:00)
[2022-06-27] MEDS: PANTOPRAZOLE SODIUM 40 MG VIAL IVPUSH SCH (11:15)
[2022-06-27] MEDS: BUDESONIDE/FORMETEROL FUMARATE 160/4.5 mcg INHALER IH SCH (11:18)
[2022-06-27] MEDS: APIXABAN 5 MG TABLET PO SCH (11:18)
[2022-06-27] MEDS: LOSARTAN POTASSIUM 50 MG TABLET PO SCH (11:18)
[2022-06-27 18:07] VITALS: BP 121/57; PULSE 65; RESP 18; TEMP 98
[2022-06-29] MEDS ORDERED: predniSONE 10 MG TABLET (UD) PO SCH (10:00)
[2022-06-30] MEDS ORDERED: predniSONE 10 MG TABLET (UD) PO SCH (10:00)
== END 2022-06-27 18:15 | DRG 208 ==
LOC: JER 03:35 → JERBED 05:46 → JICU 15:32 → J4S 06-18 23:18
PROVIDERS: ADMIT Internal Medicine; ATTEND Nurse Practitioner Acute Care
PROC: 5A1945Z Respiratory Ventilation, 24-96 Consecutive Hours (ICD-10-PCS; principal; 2022-06-13)
PROC: 0BH17EZ Insertion of Endotracheal Airway into Trachea, Via Natural or Artificial Opening (ICD-10-PCS; 2022-06-13)
PROC: 5A12012 Performance of Cardiac Output, Single, Manual (ICD-10-PCS; 2022-06-13)
DX: J96.22 Acute and chronic respiratory failure with hypercapnia (principal); I50.33 Acute on chronic diastolic (congestive) heart failure; G93.41 Metabolic encephalopathy; I46.9 Cardiac arrest, cause unspecified; A41.9 Sepsis, unspecified organism; R65.21 Severe sepsis with septic shock; R57.0 Cardiogenic shock; J44.1 Chronic obstructive pulmonary disease with (acute) exacerbation; E87.20 Acidosis, unspecified; I24.8 Other forms of acute ischemic heart disease; N39.0 Urinary tract infection, site not specified; J98.11 Atelectasis; J96.21 Acute and chronic respiratory failure with hypoxia; Z99.81 Dependence on supplemental oxygen; J96.01 Acute respiratory failure with hypoxia; I48.91 Unspecified atrial fibrillation; Z79.01 Long term (current) use of anticoagulants; I25.10 Atherosclerotic heart disease of native coronary artery without angina pectoris; E03.9 Hypothyroidism, unspecified; Z86.16 Personal history of COVID-19; I11.0 Hypertensive heart disease with heart failure; I48.0 Paroxysmal atrial fibrillation; I34.1 Nonrheumatic mitral (valve) prolapse; F41.9 Anxiety disorder, unspecified; B96.20 Unspecified Escherichia coli [E. coli] as the cause of diseases classified elsewhere; D72.829 Elevated white blood cell count, unspecified
CPT/HCPCS: 0241U-QW; 31500; 36415; 36600; 71045-TC-FY; 74230-TC-FY; 80053; 81003; 82553; 82803; 82962; 83605; 83735; 83880; 84100; 84484; 85025; 85027; 85610; 85730; 87040; 87077; 87086; 87186; 87899; 92611-GN; 93005; 93010; 93970-TC; 94002; 94640; 94660; 97116-GP; 97162-GP; 99285-25; C9803-CS; U0003; U0005

== ENCOUNTER 2022-09-11 18:45 | Emergency (ER) | payer OTHER, MEDICARE ==
[2022-09-11 19:27] VITALS: BP 123/79; PULSE 81; RESP 18; TEMP 97; BMI 35.5
[2022-09-11] MEDS ORDERED: METOCLOPRAMIDE HCL INJECTION 10 MG/2 ML VIAL IVPUSH ONE (20:23)
[2022-09-11] MEDS ORDERED: ACETAMINOPHEN 500 MG TABLET (FP) PO ONE (21:56)
[2022-09-11] MEDS ORDERED: ACETAMINOPHEN 325 MG TABLET (FP) ONE (22:05)
== END 2022-09-11 22:51 | disposition home or self-care (01) ==
LOC: JER 18:45
DX: S09.90XA Unspecified injury of head, initial encounter (principal); Y04.8XXA Assault by other bodily force, initial encounter
CPT/HCPCS: 70450-TC; 71045-TC-FY; 72125-TC; 93005; 93010; 99285-25

== ENCOUNTER 2023-11-12 16:27 | Inpatient (IN) | payer OTHER, MEDICARE ==
[2023-11-12 16:51] VITALS: BMI 29.2
[2023-11-12] MEDS ORDERED: FLUORESCEIN NA 1 EA STRIP ONE (18:18)
[2023-11-12] MEDS ORDERED: TETRACAINE 0.5% OPHTH SOLN 2 ML BOTTLE ONE (18:18)
[2023-11-12] MEDS: FLUORESCEIN NA 1 EA STRIP OS ONE (18:54)
[2023-11-12] MEDS: TETRACAINE 0.5% OPHTH SOLN 2 ML BOTTLE OS ONE (18:55)
[2023-11-12 19:05] LABS: BASO % 0.3 % (0-2.0); EOS % 0.3 % (0-4.5); HEMATOCRIT 39.7 % (32.4-45.2); HEMOGLOBIN 13.3 GM/dL (10.7-15.3); MCH 30.9 pg (25.7-33.7); MCHC 33.5 g/dl (32.0-36.0); MEAN CELL VOLUME 92.2 fl (80-96); MONO % 14.8 % (3.8-10.2); NEUT % 62.6 % (42.8-82.8); PLATELET COUNT 126 10^3/uL (134-434); RBC 4.31 M/mm3 (3.60-5.2); RDW 15.3 % (11.6-15.6); WHITE BLOOD COUNT 5.7 K/mm3 (4.0-10.0)
[2023-11-12 19:24] LABS: POTASSIUM 4.2 mmol/L (3.5-5.1)
[2023-11-12 19:26] LABS: CALCIUM 8.8 mg/dL (8.5-10.1)
[2023-11-12 19:27] LABS: ALBUMIN 3.4 g/dl (3.4-5.0); BLOOD UREA NITROGEN 14.8 mg/dL (7-18); MAGNESIUM 2.1 mg/dL (1.8-2.4)
[2023-11-12 19:29] LABS: CREATININE 0.8 mg/dL (0.55-1.3)
[2023-11-12 19:31] LABS: BILIRUBIN,TOTAL 0.6 mg/dL (0.2-1); TOT PROT 6.9 g/dl (6.4-8.2)
[2023-11-12] MEDS: ACYCLOVIR INJECTION 700 MG in DEXTROSE 5%-WATER - 100 ML IVPB ONE (21:21)
[2023-11-12] MEDS ORDERED: ACETAMINOPHEN INJECTION 100 ML IVPB ONE (21:23)
[2023-11-12] MEDS: ACETAMINOPHEN 1000 MG/100 ML BAG IVPB ONE ×2 (21:52→22:34)
[2023-11-12] MEDS: VANCOMYCIN HCL 1,500 MG in DEXTROSE 5%-WATER - 500 ML IVPB ONE (22:20)
[2023-11-12] MEDS ORDERED: ONDANSETRON 4 MG/2 ML VIAL ONE (22:24)
[2023-11-12] MEDS: ONDANSETRON 4 MG/2 ML VIAL IVPUSH ONE ×2 (22:34)
[2023-11-13] MEDS: SODIUM CHLORIDE 500 ML IV STA (01:29)
[2023-11-13] MEDS: SODIUM CHLORIDE 1,000 ML IV SCH ×2 (04:59→06:10)
[2023-11-13] MEDS ORDERED: ALBUTEROL SO4 HFA INHALER IH PRN (05:56)
[2023-11-13] MEDS ORDERED: NITROGLYCERIN SUBLINGUAL 1/150 0.4 MG TAB SL PRN (05:56)
[2023-11-13] MEDS ORDERED: PIPERACILLIN/TAZOB 4.5 GM 4.5 GM/100 ML BAG IVPB ONE ×2 (06:00→14:20)
[2023-11-13] MEDS: PIPERACILLIN/TAZOB 4.5 GM 4.5 GM in DEXTROSE 5%-WATER 100 ML IVPB SCH ×2 (06:05→06:12)
[2023-11-13] MEDS ORDERED: MELATONIN 5 MG TABLETS PO PRN (06:21)
[2023-11-13] MEDS ORDERED: ALBUTEROL SO4 2.5/IPRATROPIUM 0.5 INH SOL 3 ML VIAL.NEB. NEB PRN (06:21)
[2023-11-13] MEDS ORDERED: ARTIFICIAL TEARS OPHTHALMIC DROPS OU PRN (06:21)
[2023-11-13] MEDS: ACYCLOVIR INJECTION 700 MG in DEXTROSE 5%-WATER - 100 ML IVPB SCH (06:35)
[2023-11-13] MEDS ORDERED: LEVOTHYROXINE NA 50 MCG TABLET (FP) ONE (06:36)
[2023-11-13] MEDS ORDERED: PANTOPRAZOLE 40 MG TABLET PO ONE (06:36)
[2023-11-13] MEDS: LEVOTHYROXINE NA 50 MCG TABLET (FP) PO SCH (06:40)
[2023-11-13] MEDS: PANTOPRAZOLE 40 MG TABLET PO SCH (06:40)
[2023-11-13 07:18] LABS: BASO % 0.3 % (0-2.0); EOS % 0.5 % (0-4.5); HEMATOCRIT 36.4 % (32.4-45.2); HEMOGLOBIN 12.5 GM/dL (10.7-15.3); LYMPH % 23.8 % (8-40); MCH 31.5 pg (25.7-33.7); MCHC 34.3 g/dl (32.0-36.0); MEAN CELL VOLUME 91.8 fl (80-96); MEAN PLT VOLUME 7.9 fl (7.5-11.1); MONO % 14.3 % (3.8-10.2); NEUT % 61.1 % (42.8-82.8); PLATELET COUNT 108 10^3/uL (134-434); RBC 3.97 M/mm3 (3.60-5.2); RDW 15.2 % (11.6-15.6); WHITE BLOOD COUNT 4.5 K/mm3 (4.0-10.0)
[2023-11-13 08:03] LABS: POTASSIUM 3.5 mmol/L (3.5-5.1)
[2023-11-13 08:06] LABS: CALCIUM 7.9 mg/dL (8.5-10.1)
[2023-11-13 08:07] LABS: BLOOD UREA NITROGEN 10.9 mg/dL (7-18); MAGNESIUM 1.9 mg/dL (1.8-2.4)
[2023-11-13 08:10] LABS: CREATININE 0.7 mg/dL (0.55-1.3)
[2023-11-13 08:11] LABS: BILIRUBIN,TOTAL 0.6 mg/dL (0.2-1); TOT PROT 6.2 g/dl (6.4-8.2)
[2023-11-13] MEDS ORDERED: GABAPENTIN 100 MG CAPSULE ONE ×2 (09:51→14:20)
[2023-11-13] MEDS ORDERED: APIXABAN 5 MG TABLET ONE (09:51)
[2023-11-13] MEDS ORDERED: ACETAMINOPHEN INJECTION 100 ML IVPB ONE (09:52)
[2023-11-13] MEDS: ACETAMINOPHEN 1000 MG/100 ML BAG IVPB PRN (09:56)
[2023-11-13] MEDS: GABAPENTIN 100 MG CAPSULE PO SCH (09:59)
[2023-11-13] MEDS: APIXABAN 5 MG TABLET PO SCH (09:59)
[2023-11-13] MEDS ORDERED: GABAPENTIN 300 MG CAPSULE PO SCH (10:00)
[2023-11-13] MEDS: FLUTICASONE/UMECLIDIN/VILANTER(200-62.5-25 TRELEGY ELLIPTA) INAHLER IH SCH (12:26)
[2023-11-13] MEDS: PIPERACILLIN/TAZOB 3.375 GM 3.375 GM in DEXTROSE 5%-WATER - 50 ML IVPB SCH (19:18)
[2023-11-13] MEDS: ROSUVASTATIN CA 20 MG TABLET PO SCH (21:28)
[2023-11-13] MEDS: GABAPENTIN 300 MG CAPSULE PO SCH (21:30)
[2023-11-14 07:24] VITALS: RESP 20
[2023-11-14] MEDS: VANCOMYCIN/WATER 1250 MG 1,250 MG/250 ML BAG IVPB ONE (13:56)
[2023-11-14 14:08] VITALS: BP 100/57; PULSE 81; TEMP 98.8
[2023-11-14] MEDS: oxyCODONE HCL 5 MG TABLET PO PRN (15:50)
[2023-11-15] MEDS ORDERED: VANCOMYCIN/WATER 1250 MG 1,250 MG/250 ML BAG IVPB SCH ×2 (02:00)
== END 2023-11-14 19:25 | disposition short-term general hospital (02) | DRG 603 ==
LOC: JER 16:27 → JERBED 11-13 00:23 → J7W 11-13 15:52
PROVIDERS: ADMIT Internal Medicine; ATTEND Nurse Practitioner
DX: L03.211 Cellulitis of face (principal); I50.32 Chronic diastolic (congestive) heart failure; B02.30 Zoster ocular disease, unspecified; J44.9 Chronic obstructive pulmonary disease, unspecified; E78.5 Hyperlipidemia, unspecified; K21.9 Gastro-esophageal reflux disease without esophagitis; I25.10 Atherosclerotic heart disease of native coronary artery without angina pectoris; G20.A1 Parkinson's disease without dyskinesia, without mention of fluctuations; E03.9 Hypothyroidism, unspecified; I48.91 Unspecified atrial fibrillation
CPT/HCPCS: 36415; 70481-TC; 80053; 83735; 84100; 85025; 86140; 87040; 87070; 87186; 87205; 87252; 87635; 93005; 93010; 99285-25; J0131; Q9967